=== PATIENT | male | born 1960 | race Caucasian/White ===

== ENCOUNTER 2023-05-28 19:31 | Emergency (ER) | payer BC, SELFPAY ==
[2023-05-28 19:36] VITALS: BP 148/78; PULSE 72; RESP 18; TEMP 36.6; O2SAT 98; BMI 31.0
--- NOTE | 2023-05-28 19:39 | ECG_ITS ---
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
--- NOTE | 2023-05-28 19:45 | XR_ITS ---
The [address] [address] Patient Name: JEZ MELLO MRN: [id number] date: 1960 Sex: M Assigned Patient Location: ER Current Patient Location: ER Accession/Order Number: [id number] Exam Date: 05/28/2023 19:57 Report Date: 05/28/2023 20:52 At the request of: SABINO ARAYA Procedure: XR chest 1V EXAM: XR chest 1V HISTORY: chest pain COMPARISON: 07/26/2022 TECHNIQUE: AP portable study FINDINGS: The heart is within normal limits in size. There is distortion of the mediastinum associated with the AP technique and slight right posterior oblique positioning. Mediastinal surgical clips are noted. Early calcification is noted at the aortic arch. The lung morel are well-expanded and clear. Pleural spaces are clear. Wire sternal sutures are noted. XR/XR chest 1V IMPRESSION: Chronic changes. No acute cardiopulmonary process is otherwise identified. Electronically authenticated by: Fortino RICHARDSON Date: 05/28/2023 20:52
--- NOTE | 2023-05-28 19:45 | ED_ITS ---
HPI - Chest Pain General Chief Complaint: Chest Pain Stated Complaint: CHEST PAIN Time Seen by Provider: 05/28/23 19:45 Source: patient Mode of arrival: walk-in Limitations: no limitations History of Present Illness HPI narrative: Patient process emergency department complaining of chest pain. Patient states his had intermittent chest pain for the last 2 weeks. Not related to exertion. It could happen even at rest. Pain radiates across his chest and down his left arm. He has a history of bypass and stent last year. 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 Patient also has a history of lung cancer status post right lower lobe lobectomy done 4 months ago at [facility]. Patient states he spent persistently more short of breath than normal. He denies any fever, chills, cough, runny nose, sore throat. Denies any nausea, vomiting, diarrhea, constipation, or abdominal pain. He denies any flank pain, hematuria or dysuria. He denies any trauma. Patient was taking isosorbide 30 mg and has not taking 60. Denies any palpitations, dizziness, diaphoresis. He denies any lower extremity edema, or cramping. Related Data Home Medications Medication Instructions Recorded Confirmed aspirin 81 mg capsule 81 mg PO DAILY 05/28/23 05/28/23 atorvastatin 80 mg tablet 80 mg PO DAILY 05/28/23 05/28/23 clopidogrel 75 mg tablet 75 mg PO DAILY 05/28/23 05/28/23 isosorbide mononitrate 60 mg 60 mg PO DAILY 05/28/23 05/28/23 tablet,extended release 24 hr metoprolol tartrate 25 mg tablet 25 mg PO DAILY 05/28/23 05/28/23 tamsulosin 0.4 mg capsule 0.4 mg PO Q24H 05/28/23 05/28/23 Allergies Allergy/AdvReac Type Severity Reaction Status Date / Time No Known Drug Allergies Allergy Verified 05/28/23 19:42 Review of Systems ROS Status of ROS 10 or more systems reviewed and unremarkable except as noted in history and below [facility] Social History Smoking status: Former smoker Exam Narrative Exam Narrative: Nurses notes and vital signs reviewed and patient is not hypoxic. General: Nontoxic, Well-appearing and in no apparent distress. Skin: Warm, dry, no pallor noted. No Rash Head: Normocephalic, atraumatic. Neck: Supple, non-tender. Eye: Pupils are equal, round and EOMI. No scleral icterus. Ears, Nose, Mouth, and Throat: TM clear, no posterior oropharynx erythema or nasal mucosal hypertrophy, uvula is mid-line Oral mucosa is moist Cardiovascular: Regular Rate and Rhythm without murmur, gallop or rub. Respiratory: No accessory muscle use or respiratory distress. Lungs are clear to auscultation, no wheezing, rales or rhonchi Chest Wall: no tenderness Back: No midline thoracic or lumbar vertebral tenderness. No CVA tenderness Musculoskeletal: normal ROM, no calf or popliteal tenderness, no lower extremity edema/swelling GI: Abdomen is soft, non-distended. Normal bowel sounds. No masses appreciated. No tenderness to palpation. No rebound, guarding, or rigidity noted. Neurological: A&O x4. No cranial nerve dysfunction observed. No truncal ataxia. Moves all extremities. Sensation intact. Psychiatric: Cooperative and interactive. Normal mood and affect. Constitutional Vital Signs, click to edit/add: Last Vital Signs Temp 98 F 05/28/23 19:36 Pulse 72 05/28/23 19:36 Resp 18 05/28/23 19:36 BP 148/78 H 05/28/23 19:36 Pulse Ox 98 05/28/23 19:36 O2 Del Method Room Air 05/28/23 19:36 Course Vital Signs Vital signs: Vital Signs Temperature 98 F 05/28/23 19:36 Pulse Rate 72 05/28/23 19:36 Respiratory Rate 18 05/28/23 19:36 Blood Pressure 148/78 H 05/28/23 19:36 Pulse Oximetry 98 05/28/23 19:36 Oxygen Delivery Method Room Air 05/28/23 19:36 Temperature 98 F 05/28/23 19:36 Pulse Rate 72 05/28/23 19:36 Respiratory Rate 18 05/28/23 19:36 Blood Pressure 148/78 H 05/28/23 19:36 Pulse Oximetry 98 05/28/23 19:36 Oxygen Delivery Method Room Air 05/28/23 19:36 MDM - Chest Pain MDM Narrative Medical decision making narrative: Patient has refused to have an IV inserted. Left studies were done and are unremarkable. Troponin was negative ?2. Patient's score still. All results were discussed with patient. Patient prefers to follow-up with Dr. Jackson as an outpatient. He had a heart catheter last year with a stent. He has been compliant with all of his medications. I answered all questions. Discussed discharge instructions including standard anticipatory guidance and what should prompt a return to the emergency department, including if they get worse are not getting better or develops any new or concerning symptoms. I've given them specific time frame in which to follow-up, and who to follow-up with. The patient demonstrates understanding. Patient is nontoxic and stable for discharge with outpatient follow-up. This note was created with the assistance of a speech recognition program. Although the intention is to generate documents that actually reflects the content of the visit, no guarantees can be provided that every mistake has been identified and corrected by editing. Differential Diagnosis Differential diagnosis: Likely pneumothorax, atypical chest pain, st elevation myocardial infarction and chest pain Lab Data Attestation: I reviewed the patient's lab results. Labs: Lab Results 05/28/23 05/28/23 Range/Units 19:58 21:19 WBC 5.1 (4.0-11.0) 10^3/uL RBC 4.64 L (4.70-6.10) 10^6/uL Hgb 13.6 L (14.0-18.0) g/dL Hct 40.5 L (42.0-54.0) % MCV 87.3 (80.0-94.0) fL MCH 29.3 (25.9-34.0) pg MCHC 33.6 (29.9-35.2) g/dL RDW 13.0 (11.0-15.0) % Plt Count 217 (150-450) 10^3/uL MPV 9.7 (9.5-13.5) fL Neut % (Auto) 63.8 (43.0-75.0) % Lymph % (Auto) 25.0 (20.5-60.0) % [place] % (Auto) 7.5 (1.7-12.0) % Eos % (Auto) 3.1 (0.9-7.0) % Baso % (Auto) 0.4 (0.2-2.0) % Neut # (Auto) 3.2 (1.4-6.5) 10^3/uL Lymph # (Auto) 1.3 (1.2-3.8) 10^3/uL [place] # (Auto) 0.4 (0.3-0.8) 10^3/uL Eos # (Auto) 0.2 (0.0-0.7) 10^3/uL Baso # (Auto) 0.0 (0.0-0.1) 10^3/uL Abs Immat Gran (auto) 0.01 (0.00-0.03) 10^3/uL Imm/Tot Granulo (auto) 0.2 (0.0-0.5) % PT 10.5 (9.0-11.6) sec INR 0.99 APTT 27.7 (22.3-36.2) sec D-Dimer 0.52 (<=0.59) mg/L FEU Sodium 146 H (136-145) mmol/L Potassium 4.0 (3.5-5.1) mmol/L Chloride 110 H (98-107) mmol/L Carbon Dioxide 26.9 (21.0-32.0) mmol/L Anion Gap 13.1 BUN 12.0 (7.0-18.0) mg/dL Creatinine 1.25 (0.70-1.30) mg/dL Est GFR ( Amer) >60 (>=60) Est GFR (Non-Af Amer) 59 L (>=60) BUN/Creatinine Ratio 9.6 Glucose 147 H (74-106) mg/dL Calcium 8.5 (8.5-10.1) mg/dL Total Bilirubin 0.5 (0.2-1.0) mg/dL AST 22 (15-37) U/L ALT 26 (16-63) U/L Alkaline Phosphatase 87 (46-116) U/L Troponin I High Sens 15.2 15.8 (4.0-76.1) pg/mL NT-Pro-B Natriuret Pep 84.0 (<=900.0) pg/mL Total Protein 6.9 (6.4-8.2) g/dL Albumin 3.9 (3.4-5.0) g/dL Globulin 3.0 g/dL Albumin/Globulin Ratio 1.3 ECG Data Attestation: I personally reviewed and interpreted this ECG as follows: Interpretation: Sinus rhythm 70 bpm. Normal axis, no acute ischemic changes. Heart Score History: Slightly/Non-Suspicious ECG: Normal Age: >45-<65 years Risk Factors: 1 or 2 Risk Factors Troponin: <Normal Limit Total Heart Score Recommendations & Risks:: 2 Discharge Plan Discharge Chief Complaint: Chest Pain Clinical Impression: Chest pain Patient Disposition: Home, Self-Care Time of Disposition Decision: 21:54 Condition: Good Mode of Transportation: Private Vehicle Prescriptions / Home Meds: No Action atorvastatin 80 mg tablet 80 mg PO DAILY clopidogrel 75 mg tablet 75 mg PO DAILY isosorbide mononitrate 60 mg tablet extended release 24 hr 60 mg PO DAILY tamsulosin 0.4 mg capsule 0.4 mg PO Q24H metoprolol tartrate 25 mg tablet 25 mg PO DAILY aspirin 81 mg capsule 81 mg PO DAILY Instructions: Chest Pain (ED) Stand Alone Forms: Portal Instructions Referrals: Shaikh Elliott MD [Primary Care Provider] - 1 week
[2023-05-28 20:12] LABS: Basophils Percent Auto 0.4 % (0.2-2.0); Eosinophils Absolute Auto 0.2 10^3/uL (0.0-0.7); Eosinophils Percent Auto 3.1 % (0.9-7.0); Hematocrit 40.5 % (42.0-54.0); Hemoglobin 13.6 g/dL (14.0-18.0); Immature Granulocytes Abs Auto 0.01 10^3/uL (0.00-0.03); Immature Granulocytes Pct Auto 0.2 % (0.0-0.5); Lymphocytes Absolute Auto 1.3 10^3/uL (1.2-3.8); Mean Corpuscular HGB Conc 33.6 g/dL (29.9-35.2); Mean Corpuscular Hemoglobin 29.3 pg (25.9-34.0); Mean Corpuscular Volume 87.3 fL (80.0-94.0); Mean Platelet Volume 9.7 fL (9.5-13.5); Monocytes Absolute Auto 0.4 10^3/uL (0.3-0.8); Monocytes Percent Auto 7.5 % (1.7-12.0); Neutrophils Absolute Auto 3.2 10^3/uL (1.4-6.5); Neutrophils Percent Auto 63.8 % (43.0-75.0); Platelet Count 217 10^3/uL (150-450); Red Blood Count 4.64 10^6/uL (4.70-6.10); White Blood Count 5.1 10^3/uL (4.0-11.0)
[2023-05-28 20:27] LABS: INR 0.99; Partial Thromboplastin Time 27.7 sec (22.3-36.2); Prothrombin Time 10.5 sec (9.0-11.6)
[2023-05-28 20:30] LABS: D Dimer 0.52 mg/L FEU (<=0.59)
[2023-05-28 20:37] LABS: Alanine Aminotransferase 26 U/L (16-63); Albumin Globulin Ratio 1.3; Albumin Level 3.9 g/dL (3.4-5.0); Alkaline Phosphatase 87 U/L (46-116); Anion Gap 13.1; Aspartate Amino Transferase 22 U/L (15-37); BUN Creatinine Ratio 9.6; Bilirubin Total 0.5 mg/dL (0.2-1.0); Calcium 8.5 mg/dL (8.5-10.1); Carbon Dioxide 26.9 mmol/L (21.0-32.0); Chloride 110 mmol/L (98-107); Estimated GFR (African America >60 (>=60); Estimated GFR (Non-African Ame 59 (>=60); Glucose 147 mg/dL (74-106); Sodium 146 mmol/L (136-145); Total Protein 6.9 g/dL (6.4-8.2); Troponin I High Sensitivity 15.2 pg/mL (4.0-76.1)
[2023-05-28 21:48] LABS: Troponin I High Sensitivity 15.8 pg/mL (4.0-76.1)
== END 2023-05-28 22:12 | disposition home or self-care (01) ==
PROVIDERS: Emergency Provider Emergency Medicine; PCP Internal Medicine
DX: R07.9 Chest pain, unspecified (principal); Z95.5 Presence of coronary angioplasty implant and graft; Z85.118 Personal history of other malignant neoplasm of bronchus and lung; Z90.2 Acquired absence of lung [part of]; Z79.82 Long term (current) use of aspirin; Z79.899 Other long term (current) drug therapy; Z87.891 Personal history of nicotine dependence
CPT/HCPCS: 36415; 71045; 80053; 83880; 84484; 85025; 85378; 85610; 85730; 93005; 99285

== ENCOUNTER 2023-09-13 10:00 | Outpatient (OUT) | payer BC, SELFPAY ==
--- NOTE | 2023-09-13 10:12 | P.CN_ITS ---
Consult Note: HPI Data of Consult Patient: new to practice Requesting Physician: Lexis Eckert NP Primary Care Provider: Shaikh Lexi MD Consult Narrative Reason for consult: establish care low back pain Narrative: Zaid Mcarthur a pleasant 62 year old male presents for evaluation and management of chronic low back pain. Pain has been ongoing for years, most recent cause related to a fall where he fell 18ft off a ladder and went to the ER where they found lung cancer and he is now in remission with q4 month surveillance. Pain worsened as a result of PT. Patient rating pain today 5/10 in low back. Pain is worse with pushing, pulling, ADLS, upon wakening, stairs, and bending. No pain relief. Patient has a cardiac hx and is on plavix, will avoid NSAIDs. Patient would like to discuss treatment options today, has a recent lumbar MRI which shows mild stenosis, multilevel disc bulging, and lumbar spondylosis. cc:: CC: Lexis Eckert NP Review of Systems ROS Status of ROS 10 or more systems reviewed and unremarkable except as noted in history and below Musculoskeletal Reports: back pain PFSH PFSH Social History Smoking status: Former smoker Meds Home Medications and Allergies Home Medications Medication Instructions Recorded Confirmed Type aspirin 81 mg capsule 81 mg PO DAILY 05/28/23 05/28/23 History atorvastatin 80 mg tablet 80 mg PO DAILY 05/28/23 05/28/23 History clopidogrel 75 mg tablet 75 mg PO DAILY 05/28/23 05/28/23 History isosorbide mononitrate 60 mg 60 mg PO DAILY 05/28/23 05/28/23 History tablet,extended release 24 hr metoprolol tartrate 25 mg tablet 25 mg PO DAILY 05/28/23 05/28/23 History tamsulosin 0.4 mg capsule 0.4 mg PO Q24H 05/28/23 05/28/23 History Allergies Allergy/AdvReac Type Severity Reaction Status Date / Time No Known Drug Allergies Allergy Verified 05/28/23 19:42 Exam Constitutional Documenting provider has reviewed patient's vital signs: yes Common normals: no apparent distress, oriented x3, healthy appearing, alert and well nourished General appearance: cooperative Nutritional appearance: obese HENMT Common normals: normocephalic, hearing grossly normal bilaterally and moist oral mucous membranes Head and scalp: normocephalic Eye Common normals: PERRL Pupil: PERRL Neck & C-Spine Common normals: full ROM General: normal visual inspection Chest Common normals: inspection of chest normal Respiratory Common normals: normal respiratory effort, no retractions and no use of accessory muscles Back & Pelvis Lumbar spine/lower back: ROM limited, pain with ROM and straight leg raise negative bilaterally Other: bilateral facet loading axial low back pain without radiculopathy Back image (male): 1. 2. Extremity Common normals: normal to inspection and full ROM Neuro Common normals: oriented x3, CN's II-XII intact bilaterally, moves all extremities, no focal motor deficits, no sensory deficits noted and deep tendon reflexes 2+ bilaterally Sensorium/orientation: alert Motor exam: no movement abnormalities noted and strength abnormal (BLE 4/5) Psych Common normals: mental status grossly normal, thought process normal, cooperative, affect normal, speech normal and activity/motor behavior normal Speech: normal speech Thought process: normal thought process Assessment and Plan Assessment and Plan (1) Lumbar spondylosis: Assessment and Plan: The patient has had over 3 months of moderate to severe low back pain with fun ctional impairment and inadequate response to conservative care including NSAIDS (unless there are contraindication such as concurrent blood thinners), multiple oral or topical pain medications, and home exercise program/physical therapy.? Patient has completed >6 weeks of guided home exercise program and/or formal physical therapy program without relief of their symptoms.? I have reviewed the imaging of the lumbar spine and no red flags were identified.? The Oswestry Disability Index was completed, and the patient scored a 20%.? The patient noted the following:?? moderate to severe pain, pain impacting sleep, pain limiting social life and travel We discussed the risks and benefits of the procedure with the patient, and we are NOT planning on using sedation as outlined in the guidelines from Medicare unless there is a documented reason that sedation would be strongly recommended.?? The procedure will be completed with fluoroscopic guidance.? (2) Obesity: Assessment and Plan: The patient was counseled that proper dietary changes and consistent participation in a home exercise plan can lead to weight loss. Weight loss can help to improve functionality in patients with chronic pain.? (3) Chronic anticoagulation: (4) S/P triple vessel bypass: (5) Hx of heart artery stent: Plan bilateral L4-5 L5-S1 MBB x2 under fluoroscopy working towards thermal RFA continue PRN tylenol, avoid NSAIDs continue HEP as tolerated [employer] reviewed and signed F/u 1 week after MBB
== END 2023-09-13 10:01 ==
LOC: PM 09-19 12:37
PROVIDERS: PCP Internal Medicine; Visit Provider Nurse Practitioner
DX: M47.816 Spondylosis without myelopathy or radiculopathy, lumbar region (principal); E66.9 Obesity, unspecified; Z79.01 Long term (current) use of anticoagulants; R09.89 Other specified symptoms and signs involving the circulatory and respiratory systems
CPT/HCPCS: G0463

== ENCOUNTER 2023-10-01 09:50 | Day surgery (SDC) | payer BC, SELFPAY ==
[2023-10-01 10:55] VITALS: BP 134/79; PULSE 79; RESP 16; TEMP 36.9; O2SAT 97
[2023-10-01] MEDS: BUPIVACAINE HCL 0.25% PF 25 MG/10 ML VIAL 8 ML INJ (11:31)
[2023-10-01] MEDS: LIDOCAINE HCL 2% PF 100 MG/5 ML VIAL 2 ML INJ (11:31)
[2023-10-01 11:33] VITALS: BP 130/71; PULSE 65; RESP 18; O2SAT 97
--- NOTE | 2023-10-01 11:34 | W.PM.PROCNOT ---
Date of procedure: 10/01/23 Pre-op diagnosis: Lumbar spondylosis Post-op diagnosis: same as pre-op Procedure: Procedure: Bilateral L4-5, L5-S1 medial branch block Medications: Bupivacaine 0.25% 5cc The patient was seen and examined in the preoperative holding area.? An informed consent was obtained and placed on the chart.? The patient was brought to the medical procedure unit and placed in the prone position.? A timeout was completed verifying correct patient, procedure site, positioning, plan, and special equipment.? Using aseptic technique, the needle was placed at left L4. Under direct fluoroscopic visualization a Quincke-tipped spinal needle was advanced to the junction of the superior articulating process with the transverse process at the designated medial branch segment.? Preceded by negative aspiration, the above-mentioned injectate was placed in 1 mL aliquots.? The procedure was repeated at left L5, S1.? The needle was removed and insertion site was covered. The same procedure, at the same levels, was completed on the right side. The patient was taken to the postprocedural recovery area and monitored for an appropriate length of time before found suitable for discharge in the company of a responsible adult. Anesthesia: Local Surgeon: Mariah Whiting Pathology: none sent Condition: stable Disposition: no change
[2023-10-01 11:36] VITALS: BP 127/71; PULSE 68; RESP 18; O2SAT 97
== END 2023-10-01 11:40 | disposition home or self-care (01) ==
PROVIDERS: PCP Internal Medicine; Visit Provider Anesthesiology
DX: M47.816 Spondylosis without myelopathy or radiculopathy, lumbar region (principal)
CPT/HCPCS: 64493; 64494

== ENCOUNTER 2023-10-10 11:37 | Outpatient (OUT) | payer BC, SELFPAY ==
--- NOTE | 2023-10-10 12:12 | P.CN_ITS ---
Consult Note: HPI Data of Consult Patient: known to practice within the last 3 years Requesting Physician: Lexis Eckert NP Primary Care Provider: Shaikh Lexi MD Consult Narrative Reason for consult: establish care low back pain Narrative: Zaid Mcarthur a pleasant 62 year old male presents for evaluation and management of chronic low back pain. Pain has been ongoing for years, most recent cause related to a fall where he fell 18ft off a ladder and went to the ER where they found lung cancer and he is now in remission with q4 month surveillance. Pain worsened as a result of PT. Patient rating pain today 5/10 in low back. Pain is worse with pushing, pulling, ADLS, upon wakening, stairs, and bending. No pain relief. Patient has a cardiac hx and is on plavix, will avoid NSAIDs. Patient has a recent lumbar MRI which shows mild stenosis, multilevel disc bulging, and lumbar spondylosis. cc:: CC: Lexis Eckert NP Review of Systems ROS Status of ROS 10 or more systems reviewed and unremark able except as noted in history and below Musculoskeletal Reports: back pain PFSH PFSH Social History Smoking status: Former smoker Meds Home Medications and Allergies Home Medications Medication Instructions Recorded Confirmed Type aspirin 81 mg capsule 81 mg PO DAILY 05/28/23 10/01/23 History atorvastatin 80 mg tablet 80 mg PO DAILY 05/28/23 10/01/23 History clopidogrel 75 mg tablet 75 mg PO DAILY 05/28/23 10/01/23 History isosorbide mononitrate 60 mg 60 mg PO DAILY 05/28/23 10/01/23 History tablet,extended release 24 hr metoprolol tartrate 25 mg tablet 25 mg PO BID 05/28/23 10/01/23 History tamsulosin 0.4 mg capsule 0.4 mg PO BID 05/28/23 10/01/23 History multivitamin 1 tab PO DAILY 09/13/23 10/01/23 History Allergies Allergy/AdvReac Type Severity Reaction Status Date / Time No Known Drug Allergies Allergy Verified 05/28/23 19:42 Exam Constitutional Documenting provider has reviewed patient's vital signs: yes Common normals: no apparent distress, oriented x3, healthy appearing, alert and well nourished General appearance: cooperative Nutritional appearance: obese HENMT Common normals: normocephalic, hearing grossly normal bilaterally and moist oral mucous membranes Head and scalp: normocephalic Eye Common normals: PERRL Pupil: PERRL Neck & C-Spine Common normals: full ROM General: normal visual inspection Chest Common normals: inspection of chest normal Respiratory Common normals: normal respiratory effort, no retractions and no use of accessory muscles Back & Pelvis Lumbar spine/lower back: ROM limited, pain with ROM and straight leg raise positive right Other: decreased strength in RLE Extremity Common normals: normal to inspection and full ROM Neuro Common normals: oriented x3, CN's II-XII intact bilaterally, moves all extremities, no focal motor deficits, no sensory deficits noted and deep tendon reflexes 2+ bilaterally Sensorium/orientation: alert Motor exam: no movement abnormalities noted and strength abnormal (RLE 4/5) Psych Common normals: mental status grossly normal, thought process normal, cooperative, affect normal, speech normal and activity/motor behavior normal Speech: normal speech Thought process: normal thought process Assessment and Plan Assessment and Plan (1) Lumbar spondylosis: (2) Lumbar stenosis with neurogenic claudication: (3) Lumbar radiculopathy: (4) Neuropathy of left upper extremity: Plan right L4-5 L5-S1 TFESI with Dr Whiting under fluoroscopy EMG NCV of right upper extremity continue HEP continue tylenol PRN f/u 2 weeks after RAFY
== END 2023-10-10 11:38 | disposition home or self-care (01) ==
LOC: PM 11:37
PROVIDERS: PCP Internal Medicine; Visit Provider Nurse Practitioner
DX: M47.816 Spondylosis without myelopathy or radiculopathy, lumbar region (principal); M48.062 Spinal stenosis, lumbar region with neurogenic claudication; M54.16 Radiculopathy, lumbar region; G62.9 Polyneuropathy, unspecified
CPT/HCPCS: G0463

== ENCOUNTER 2023-11-19 07:32 | Day surgery (SDC) | payer BC, SELFPAY ==
--- OUTSIDE RECORDS SUMMARY | 2023-11-19 07:35 | XMS_ITS | CCD ---
Author Name Unknown Address [address] [facility] [address] [place] [address] Organization [facility] Care Team Providers Care Wallpaper Scraper Name Role Phone Unknown, Referring Provider Unavailable Unav ailable Unavailable Unavailable MD Consuelo Villasenor Primary Care Provider [phone] MD Mickie Das Attending Provider MD Demetrio Floyd Attending Provider [phone] DO Grupo Daniel Jr Attending Provider DO Grupo Bowden Jr Referring Provider Lesa carter None, No PCP Unavailable Unavailable Consuelo Villasenor Unavailable Mickie Das Unavailable Unavailable Unavailable MD Consuelo Villasenor Primary Care Provider MD Mickie Das Attending Provider [phone] DO Jermaine Jackson Attending Provider [phone] Unavailable Unavailable Unavailable Unavailable MD Consuelo Villasenor Primary Care Provider MD Jaswinder Flores Admit Provider MD Jaswinder Flores Attending Provider NANDO Maldonado Aziza Other Provider Unavailable DO Jermaine Jackson Other Provider MD Frances Gayle Other Provider MD Walt Becker Other Provider [phone] MD Judy Kaba Other Provider MD Ottoniel Valdovinos Other Provider BOBY Oneill Other Provider MD Sahra Diez Other Provider MD Blayne Aguilera Other Provider MD Percy Wei Other Provider DR ADRIANA NAGY Attending Unavailable LILO, DR WRIGHT Admitting Unavailable MISC, DR GUERRA Primary Care Unavailable ZIEBGEOVANNA, DR SAUNDRA Naylor Consulting Unavailable LILO, DR WRIGHT Consulting Unavailable SABINO COLES Admitting Unavailable MISC, DR GUERRA Primary Care Unavailable ZIEBGEOVANNA, DR SAUNDRA Naylor Consulting Unavailable MARSHAL, SABINO Attending Unavailable ROSINA COLESID Consulting Unavailable Shaikh Elliott Unavailable Manuel, Dr. Walt Hayden Referring Unava ilable Manuel, Dr. Walt Hayden Attending Unava ilable Manuel, Dr. Walt Hayden Attending Unava ilable Jacklyn, [facility] Unavai lable Manuel, Dr. Walt Hayden Referring Unava ilable Jacklyn, [facility] Unavai lable Manuel, Dr. Walt Hayden Attending Unava ilable Jacklyn, [facility] Unavai lable Jacklyn, [facility] Unavai lable Manuel, Dr. Walt Hayden Attending Unava ilable Manuel, Dr. Walt Hayden Attending Unava ilable Manuel, Dr. Walt Hayden Referring Unava ilable UNKNOWN, [facility] Primary Care Unavailable Manuel, Dr. Walt Hayden Referring Unava ilable Manuel, Dr. Walt Hayden Attending Unava ilable Unavailable Unavailable MD Jens Elliott Primary Care Provider MD Jens Elliott Attending Provider Shaikh Elliott Attending Unavailable Shaikh Elliott Primary Care Unavailable Shaikh Elliott Admitting Unavailable Johanne RODRIGUEZ, Mariah Saldivar Attending Unavailable Yonatan Elliott MDikh Primary [facility] Provider [phone] YONATAN ELLIOTTIKH Referring Unavailable YONATAN ELLIOTTIKH Primary Care Unavailable ISAÍAS VANCE Attending Unavailable ISAÍAS VANCE Referring Unavailable YONATAN ELLIOTTIKH Primary Care Unavailable ISAÍAS VANCE Referring Unavailable YONATAN ELLIOTTIKH Primary Care Unavailable ISAÍAS VANCE Attending Unavailable ISAÍAS VANCE Referring Unavailable [facility] Primary Care Unavailable REJI ROMERO Admitting Unavailable REJI ROMERO Attending Unavailable REJI ROMERO Referring Unavailable YONATAN ELLIOTTIKH Primary Care Unavailable GISSELLE CARVER Attending Unavailable [facility] Primary [facility] Unavailable Medications Current Medications Medication Drug Class(es) Dates Sig (Normalized) Sig (Original) aspirin 81 mg delayed release oral tablet (20 sources) Platelet Aggregation Inhibitor, Nonsteroidal Anti-inflammatory Drug Start: 04-27-2021 take 81 mg by mouth once daily Aspirin Active 81 MG PO Daily April 27, 2021 12:00am take 1 tablet by mouth once lola y Aspir-Low 81 MG 1 tablet Orally Once a day Active finasteride 5 mg oral tablet (1 source) 5-alpha Reductase Inhibitor take 1 tablet by mouth every twenty-four hours Finasteride 5 MG 1 tablet Orally Once a day Active metoprolol tartrate 25 mg oral tablet (20 sources) beta-Adrenergic Rudolph Start: 021 take 1 tablet by mouth twice daily metoprolol tartrate (LOPRESSOR) 25 mg tablet TAKE 1 TABLET BY MOUTH TWICE A DAY 180 tablet 3 02/12/2023 Active nitroglycerin 0.4 mg sublingual tablet (18 sources) Nitrate Vasodilator Start: Nitroglycerin (Nitrostat) 0.4 mg tablet, sublingual Active 0.4 MG SUBLINGUAL Q5M April 29, 2021 12:00am do not exceed 3 doses per episode tamsulosin hydrochloride 0.4 mg oral capsule (20 sources) alpha-Adrenergic Rudolph Start: End: 024 take 1 capsule by mouth at bedtime tamsulosin (FLOMAX) 0.4 mg capsule Take 1 capsule (0.4 mg total) by mouth in the morning and at bedtime for 180 days. 60 capsule 5 09/05/2023 03/03/2024 Active ticagrelor 90 mg oral tablet (18 sources) Start: take 1 tablet by mouth twice daily Ticagrelor (Brilinta) 90 mg Tablet Active 90 MG PO Twice daily 180 90 April 29, 2021 12:00am Completed/Discontinued Medications Medication Drug Class(es) Dates Sig (Normalized) Sig (Original) amoxicillin 500 mg oral capsule (4 sources) Penicillin-class Antibacterial Start: 05-11-2022 End: 05-12-2022 take 500 mg by mouth every eight hours Amoxicillin Discontinued 500 MG PO Q8H May 11, 2022 12:00am May 12, 2022 8:13am atorvastatin 80 mg oral tablet (20 sources) HMG-CoA Reductase Inhibitor Start: 04-29-2021 take 1 tablet by mouth at bedtime Atorvastatin Calcium 80 MG Oral Tablet TAKE 1 TABLET AT BEDTIME Quantity: 90 Refills: 3 Ordered: 04-May-2023 Walt Jackson DO Start : 02-May-2023 Active Start: 10-25-2020 End: 04-29-2021 take 1 tablet by mouth once daily atorvastatin (LIPITOR) 40 mg tablet Take 1 tablet (40 mg total) by mouth daily. 30 tablet 6 10/25/2020 Active clopidogrel 75 mg oral tablet (13 sources) P2Y12 Platelet Inhibitor Start: 10-04-2022 take 1 tablet by mouth once daily Clopidogrel Bisulfate 75 MG Oral Tablet TAKE 1 TABLET BY MOUTH EVERY DAY Quantity: 90 Refills: 3 Ordered: 07-Jun-2023 Caterina Veliz Start : 04-Oct-2022 Active 24 hr isosorbide mononitrate 60 mg extended release oral tablet (16 sources) Nitrate Vasodilator Start: 07-28-2022 take 1 tablet by mouth once daily Isosorbide Mononitrate ER 60 MG Oral Tablet Extended Release 24 Hour TAKE 1 TABLET BY MOUTH EVERY DAY Quantity: 90 Refills: 3 Ordered: 04-Jul-2023 Walt Jackson DO Start : 20-Nov-2022 Active Start: 05-12-2022 End: 07-28-2022 take 30 mg by mouth once daily Isosorbide Mononitrate Discontinued 30 MG PO Daily May 12, 2022 12:00am July 28, 2022 5:24pm levoFLOXacin 500 mg oral tablet (2 sources) Quinolone Antimicrobial Start: 10-30-2023 End: 11-05-2023 take 1 tablet by mouth in the morning levoFLOXacin (LEVAQUIN) 500 mg tablet Take 1 tablet (500 mg total) by mouth in the morning for 5 days. 5 tablet 0 10/30/2023 11/05/2023 Discontinued (Therapy completed) ondansetron 4 mg disintegrating oral tablet (1 source) Serotonin-3 Receptor Antagonist Start: 11-10-2022 End: 10-24-2023 ondansetron ODT (ZOFRAN ODT) 4 mg disintegrating tablet DISSOLVE 1 TABLET ON TONGUE EVERY 6 HOURS NEEDED FOR FOR NAUSEA AND VOMITING 0 11/10/2022 10/24/2023 Discontinued pantoprazole 40 mg delayed release oral tablet (1 source) Proton Pump Inhibitor Start: 12-06-2022 End: 10-24-2023 take 1 tablet by mouth in the morning pantoprazole (PROTONIX) 40 mg EC tablet Take 1 tablet (40 mg total) by mouth in the morning. 30 tablet 0 12/06/2022 10/24/2023 Discontinued Problems Active Problems Problem Classification Problem Date Documented Date Episodic/Chronic Abdominal pain (4 sources) Unspecified abdominal pain; Translations: [UNSPECIFIED ABDOMINAL PAIN] Onset: 05-30-2022 Episodic Acute myocardial infarction (20 sources) Myocardial infarction; Translations: [Acute myocardial infarction of unspecified site, episode of care unspecified] Onset: 12-20-2021 04-27-2021 Chronic Bacterial infection; unspecified site (1 source) Mycobacterial infection, unspecified Episodic Calculus of urinary tract (8 sources) Calculus in bladder; Translations: [Kidney stone] Onset: 05-31-2022 09-06-2023 Episodic Cancer of bronchus; lung (5 sources) Non-small cell lung cancer; Translations: [Malignant neoplasm of unspecified part of unspecified bronchus or lung] Onset: 11-10-2021 Chronic Chronic obstructive pulmonary disease and bronchiectasis (20 sources) Chronic obstructive lung disease; Translations: [Chronic obstructive pulmonary disease, unspecified] Onset: 04-09-2017 Resolved: 03-08-2022 Chronic Coronary atherosclerosis and other heart disease (20 sources) Coronary arteriosclerosis; Translations: [Coronary atherosclerosis of unspecified type of vessel, little shell tribe or graft] Onset: 03-05-2017 Resolved: 11-15-2021 Chronic Coronary atherosclerosis and other heart disease (2 sources) Presence of aortocoronary bypass graft; Translations: [Personal history of surgery to heart and great vessels, presenting hazards to health] Onset: 07-28-2022 07-28-2022 Episodic Disorders of lipid metabolism (20 sources) Hyperlipidemia; Translations: [Other and unspecified hyperlipidemia] Onset: 07-18-2017 07-18-2017 Chronic Essential hypertension (2 sources) Hypertensive disorder; Translations: [Essential (primary) hypertension] Onset: 10-24-2023 10-18-2023 Chronic Hyperplasia of prostate (4 sources) Benign prostatic hyperplasia; Translations: [Benign prostatic hyperplasia with lower urinary tract symptoms] Onset: 12-21-2020 09-13-2023 Chronic Nonspecific chest pain (11 sources) Chest pain; Translations: [Chest pain, unspecified] Onset: 07-26-2022 07-26-2022 Episodic Other aftercare (1 source) route carrier (current) use of aspirin; Translations: [BID CLERK CURRENT USE OF ASPIRIN] Onset: 07-28-2022 Episodic Other aftercare (1 source) Other custodial (current) drug therapy; Translations: [OTH BID CLERK CURRENT DRUG THERAPY] Onset: 07-28-2022 Episodic Other lower respiratory disease (6 sources) Solitary nodule of lung; Translations: [Solitary pulmonary nodule] Episodic Other lower respiratory disease (1 source) Shortness of breath; Translations: [SHORTNESS OF BREATH] Onset: 07-28-2022 Episodic Other nutritional; endocrine; and metabolic disorders (4 sources) Body mass index 30+ - obesity; Translations: [Body Mass Index 30.0-30.9, adult] Onset: 12-20-2021 12-20-2021 Chronic Other nutritional; endocrine; and metabolic disorders (16 sources) Obesity; Translations: [Obesity, unspecified] Chronic Other screening for suspected conditions (not mental disorders or infectious disease) (3 sources) Raised prostate specific antigen; Translations: [Elevated prostate specific antigen [PSA]] Onset: 09-05-2023 09-06-2023 Episodic Unclassified (1 source) CONTACT W/AND (SUSP) EXPOS COVID-19; Translations: [CONTACT W/AND (SUSP) EXPOS COVID-19] Onset: 07-28-2022 Unclassified (1 source) Lumbago with sciatica, right side; Translations: [Lumbago with sciatica, right side] Onset: 08-02-2023 Unclassified (1 source) Bladder stones [N21.0] Onset: 11-05-2023 Past or Other Problems Problem Classification Problem Date Documented Date Episodic/Chronic Mood disorders (3 sources) Mood disorders Onset: 07-18-2017 07-18-2017 Mycoses (1 source) Unspecified mycosis Onset: 03-08-2022 Resolved: 03-08-2022 Episodic Other lower respiratory disease (20 sources) Lung mass; Translations: [Swelling, mass, or lump in chest] Onset: 04-09-2017 10-25-2021 Episodic Other lower respiratory disease (9 sources) Dyspnea on exertion; Translations: [Dyspnea, unspecified] Onset: 05-09-2017 05-09-2017 Episodic Other lower respiratory disease (7 sources) Other nonspecific abnormal finding of lung field; Translations: [Swelling, mass, or lump in chest] Onset: 11-15-2021 Resolved: 03-08-2022 Episodic Other lower respiratory disease (1 source) Dyspnea, unspecified Onset: 11-15-2021 Resolved: 11-15-2021 Episodic Other lower respiratory disease (3 sources) Cough; Translations: [Cough] Onset: 09-24-2017 09-24-2017 Episodic Other upper respiratory infections (3 sources) Acute frontal sinusitis; Translations: [Acute frontal sinusitis, unspecified] Onset: 09-24-2017 09-24-2017 Episodic Pneumonia (except that caused by tuberculosis or sexually transmitted disease) (1 source) Pulmonary mycobacterial infection Onset: 03-08-2022 Resolved: 03-08-2022 Episodic Residual codes; unclassified (3 sources) H/O: asbestos exposure; Translations: [Contact with and (suspected) exposure to asbestos] Onset: 04-09-2017 04-09-2017 Episodic Screening and history of mental health and substance abuse codes (20 sources) Ex-smoker; Translations: [Personal history of tobacco use] Onset: 03-05-2017 Resolved: 12-22-2019 07-17-2022 Episodic Comment on above: QUIT 15 YEARS AGO 20 06- SMOKED ABOUT 2 PPD; Results Test Name Value Interpretation Reference Range Facility KIDNEY STONE ANALYSISon RESULT COMMENT See Note Normal [facility] Comment on above: Result Comment: NOTE For stones containing calcium oxalate, calcium phosphate, and/or uric acid, a 24 hr urinary supersaturation test may help detect underlying risk factors for this type of stone formation and provide guidance for a stone prevention strategy. ADDITIONAL INFORMATION This test was developed and its performance characteristics determined by [facility] in a manner consistent with CLIA requirements. This test has not been cleared or approved by the U.S. Food and Drug Administration. Test Performed by: [facility] [address] [place] [address] [place]: Walt Shafer M.D. Ph.D.; CLIA# [id number] SOURCE: Bladder Normal [facility] Comment on above: Result Comment: Indy ected on 11/08 AT 1412: Previously reported as BLADDER Stone Interpretation See Note Normal [facility] Comment on above: Result Comment: NOTE 50% Calcium oxalate monohydrate. 30% Calcium phosphate (apatite). 20% Calcium oxalate dihydrate. BASIC METABOLIC PANLon 10-24 Anion gap [Moles/Vol] 6 mmol/L Normal 5-15 [facility] Comment on above: Performed By: #### Whitney FABIAN, 718-7 #### [facility] ([id number]) [address], [facility] [address] [place] [address] Calcium [Mass/Vol] 9.0 mg/dL Normal 8.5-10.5 [facility] Comment on above: Performed By: #### Whitney FABIAN, 718-7 #### [facility] ([id number]) [address] [address] [place] [address] Chloride [Moles/Vol] 103 mmol/L Normal 98-109 [facility] Comment on above: Performed By: #### Whitney FABIAN, 718-7 #### [facility] ([id number]) [address], [address] [place] [address] CO2 [Moles/Vol] 29 mmol/L Normal 22-32 [facility] Comment on above: Performed By: #### Whitney FABIAN 718-7 #### [facility] ([id number]) [address] [place] [address] Creatinine [Mass/Vol] 0.91 mg/dL Normal 0.60-1.30 [facility] Comment on above: Result Comment: METH OD TRACEABLE TO IDMS STANDARD Performed By: #### Whitney FABIAN 718-7 #### [facility] ([id number]) [address] [facility] [address] [place] [address] eGFR (CKD-EPI) NON-RACE DEPENDENT >90 Normal >59 [facility] Comment on above: Result Comment: Reported eGFR is based on the CKD-EPI 2020 equation that does not use a race coefficient. Performed By: #### Whitney FABIAN 718-7 #### [facility] ([id number]) [address] [place] [address] Glucose [Mass/Vol] 169 mg/dL High 65-99 [facility] Comment on above: Performed By: #### Whitney FABIAN 718-7 #### [facility] ([id number]) [address] [address] [place] [address] Potassium [Moles/Vol] 4.3 mmol/L Normal 3.5-5.0 [facility] Comment on above: Performed By: #### Whitney FABIAN 718-7 #### [facility] ([id number]) [address] [place] [address] Sodium [Moles/Vol] 138 mmol/L Normal 134-146 [facility] Comment on above: Performed By: #### Whitney FABIAN 718-7 #### [facility] ([id number]) [address] [place] [address] Urea nitrogen [Mass/Vol] 14 mg/dL Normal -27 [facility] Comment on above: Performed By: #### Whitney FABIAN, 718-7 #### [facility] ([id number]) [address] [place] [address] Basic Metabolic Panelon 09-29 Anion gap [Moles/Vol] 6 mmol/L 5 - 15 mmol/L [facility] Calcium [Mass/Vol] 9.0 mg/dL 8.5 - 10. 5 mg/dL [facility] Chloride [Moles/Vol] 103 mmol/L 98 - 10 9 mmol/L [facility] CO2 [Moles/Vol] 29 mmol/L 22 - 32 mmol/L [facility] Creatinine [Mass/Vol] 0.91 mg/dL 0.60 - 1.30 mg/dL [facility] Comment on above: METHOD TRACEABLE TO [facility] STANDARD eGFR (CKD-EPI)non-race dependent - PINF [facility] Comment on above: Reported eGFR is based on the CKD-EPI 2020 equation that does not use a race coefficient. Glucose [Mass/Vol] 169 mg/dL High 65 - 99 mg/dL [facility] Interpretation and review of laboratory results Abnormal [facility] Potassium [Moles/Vol] 4.3 mmol/L 3.5 - 5.0 mmol/L [facility] Sodium [Moles/Vol] 138 mmol/L 134 - 146 mmol/L [facility] Urea nitrogen [Mass/Vol] 14 mg/dL 5 - 27 mg/dL [facility] ECG 12 leadon 10-24-2023 TRACEMASTERVUE [facility] HEMOGLOBINon 10-24-2023 Hemoglobin (Bld) [Mass/Vol] 14.1 g/dL Normal 13.0-17.0 [facility] Comment on above: Performed By: #### Whitney FABIAN, 718-7 #### [facility] ([id number]) [address] [place] [address] Hemoglobinon 10-24-2023 Hemoglobin (Bld) [Mass/Vol] 14.1 g/dL 13.0 - 17.0 g/dL [facility] Hemoglobin (Bld) [Mass/Vol]o n 10-24-2023 [facility] URINALYSISon 10-24-2023 Bilirubin Ql (U) Negative Normal NEG [facility] BLOOD/HGB Trace Abnormal NEG [facility] CA OXALATE CRYSTALS PRESENT Abnormal NONE [facility] Color (U) YELLOW Normal YELLOW [facility] Glucose Ql (U) Negative Normal NEG [facility] Ketones Ql (U) Negative Normal NEG [facility] Leukocyte esterase Test strip Ql (U) Negative Normal NEG [facility] Nitrite Ql (U) Negative Normal NEG [facility] pH (U) 6.0 [pH] Normal 5.0-8.5 [facility] Protein Ql (U) Negative Normal NEG [facility] R.B.CELLS 21 /hpf High 0-5 [facility] Specific gravity (U) [Rel density] 1.021 Normal 1.003-1.03 5 [facility] TURBIDITY CLEAR Normal CLEAR [facility] Urobilinogen (U) [Mass/Vol] mg/dL Normal <1.1 [facility] W.B.CELLS 3 /hpf Normal 0-5 [facility] URINE CULTUREon 10-24-2023 Bacteria identified Cx Nom (U) CULTURE RESULTS <10,000 ORGANISMS/mL ESCHERICHIA COLI ID AND SENSITIVITY REQUESTED BY DR ROMERO 10/26 Organism: ESCHERICHIA COLI Antibiotic Interpretation SHERYL Status AMPICILLIN R >=32 F AMP/SULBACTAM R >=32/16 F CEFAZOLIN I 16 F CEFTRIAXONE S <=1 F CIPROFLOXACIN S <=0.25 F GENTAMICIN S <=1 F LEVOFLOXACIN S <=0.12 F NITROFURANTOIN S <=16 F PIPERACIL/TAZOBACTAM S <=4 F TOBRAMYCIN S <=1 F TRIMETH/SULFAMETHOXAZOLE S <=1/19 F Susceptible [facility] Comment on above: Performed By: #### 6 30-4 #### [facility] ([id number]) [address] [place] [address] XR CHEST 2 VWSon 10-24-2023 XR CHEST 2 VWS XR CHEST 2 VWS PA and lateral chest: HISTORY: Preoperative exam. Anesthesia clearance. 2 views the chest are obtained. There is a small right pleural effusion. Lungs otherwise clear. No consolidation. The cardiac contour is stable in comparison with 01/10/2023. No pneumothorax. IMPRESSION: Small right pleural effusion. Finalized by Chacorta Singleton MD on 10/24/2023 11:15 AM [facility] XR Chest PA and Lateralon PA and lateral chest : HISTORY: Preoperative exam. Anesthesia clearance. 2 views the chest are obtained. There is a small right pleural effusion. Lungs otherwise clear. No consolidation. The cardiac contour is stable in comparison with 01/10/2023. No pneumothorax. IMPRESSION: Small right pleural effusion. Finalized by Chacorta Singleton MD on 10/24/2023 11:15 AM [facility] Chacorta Singleton M D - 10/24/2023 PA and lateral chest: HISTORY: Preoperative exam. Anesthesia clearance. 2 views the chest are obtained. There is a small right pleural effusion. Lungs otherwise clear. No consolidation. The cardiac contour is stable in comparison with 01/10/2023. No pneumothorax. IMPRESSION: Small right pleural effusion. Finalized by Chacorta Singleton MD on 10/24/2023 11:15 AM [facility] Radiology Study observation (narrative) [facility] XR Chest PA and LateralOrder ed By: Chacorta Singleton on 10-24-2023 [facility] Work Phone: XR pre/post mri xrayon 08-02 XR pre/post mri xray [facility] Main [address] [address] MRI Report Signed Patient: Zaid Mello MR#: [id number] : 1960 Acct:[id number] Age/Sex: 62 / M ADM Date: 08/02/23 Loc: MR Room: Type: REG CLI Attending Dr: Shaikh Lexi RODRIGUEZ Copies to: Shaikh Lexi MD Ordering Provider: Shaikh Lexi MD Date of Service: 08/02/23 MR/MR lumbar spine wo con: M54.41 ([id number]) XR/XR pre/post mri xray: M54.41 MRI Lumbar Spine withoutcontrast TECHNIQUE: Multiplanar T1 and T2-weighted imaging of lumbar spine obtained without contrast. HISTORY: Low back pain for one year. COMPARISON: None The last fully segmented vertebral pair is operationally defined as L5/S1. POST SURGERY CHANGES: None BONE MARROW INFILTRATION: Unremarkable BONE MARROW EDEMA: Mild subendplate bone marrow edematous changes. Associated focal depressions likely representing Schmorl's nodes. BONY ALIGNMENT: Adequate bony alignment identified. SPINAL CANAL: Mild LUMBAR FRACTURE: None BONY LESIONS: None KIDNEYS: No hydronephrosis is identified. AORTA: No aortic aneurysm is seen. CONUS MEDULLARIS : The distal spinal cord is in adequate position without abnormality. Additional findings CONJOINED NERVE ROOT: None Lower thoracic level: Unremarkable L1-2 :Moderate spondylosis. Diffuse disc bulge. Patent central canal. Facet ligamentum flavum hypertrophy. Marked right and marked left neural foraminal narrowing L2-3: Moderate spondylosis. Diffuse disc bulge. Mild central canal stenosis. Facet ligamentum flavum hypertrophy. Moderate bilateral neural foraminal narrowing. L3-4: Moderate spondylosis. Diffuse disc bulge with concavity of the anterior thecal sac. Mild central canal stenosis. Facet ligamentum flavum hypertrophy. Mild facet diastases. Moderate bilateral neural foraminal narrowing. L4-5: Moderate spondylosis. Diffuse disc bulge with concavity of anterior thecal sac. Mild central canal stenosis. Facet ligamentum flavum hypertrophy. Moderate bilateral neural foraminal narrowing. L5-S1: Advanced spondylosis. Diffuse disc bulge. Concavity of anterior thecal sac. Mild central canal stenosis. Facet ligamentum flavum hypertrophy. Marked bilateral neural foraminal narrowing MR/MR lumbar spine wo con IMPRESSION: Multilevel discovertebral degenerative changes. Levels of mild central canal stenosis. Neural foraminal narrowing as above. Pre-MRI plain film assessment: 2 views lumbar spine moderate scoliosis. Mild degenerative listhesis. Multilevel moderate spondylosis. Lower lumbar hypertrophic facet changes. Impression dictated by: Amado Raza M.D.08/02/2023 3:21 PM Dictation Location: [facility]14 Transcribed By: [facility] 08/02/23 152 Dictated By: Amado Raza DO 08/02/23 1514 Signed By: 08/02/23 152 [facility] Office Visit (Cardiology)on 10-04-2022 Follow-up visit Diagnoses/Problems Assessed CAD (coronary artery disease) (414.00) (I25.10) S/P CABG (coronary artery bypass graft) (V45.81) (Z95.1) STEMI (ST elevation myocardial infarction) (410.90) (I21.3) Status post insertion of drug eluting coronary artery stent (V45.82) (Z95.5) Lung mass (786.6) (R91.8) Hyperlipidemia (272.4) (E78.5) Preoperative cardiovascular examination (V72.81) (Z01.810) Class 1 obesity with body mass index (BMI) of 32.0 to 32.9 in adult (278.00,V85.32) (E66.9,Z68.32) Former smoker (V15.82) (Z87.891) QUIT 15 YEARS AGO 2006- SMOKED ABOUT 2 PPD Orders CAD (coronary artery disease) Renew: Aspirin EC 81 MG Oral Tablet Delayed Release; TAKE 1 TABLET DAILY Chest pain Renew: Nitroglycerin 0.4 MG Sublingual Tablet Sublingual; PLACE 1 TABLET UNDER THE TONGUE EVERY 5 MINUTES FOR UP TO 3 DOSES NEEDED FOR CHEST PAIN.CALL 911 IF PAIN PERSISTS Class 1 obesity with body mass index (BMI) of 32.0 to 32.9 in adult Healthy Weight Tips; Status:Complete - Retrospective Authorization; Done: [id number] Some eating tips that can help you lose weight.; Status:Complete - Retrospective Authorization; Done: [id number] Hyperlipidemia Renew: Atorvastatin Calcium 80 MG Oral Tablet; TAKE 1 TABLET AT BEDTIME S/P CABG (coronary artery bypass graft), Status post insertion of drug eluting coronary artery stent Start: Clopidogrel Bisulfate 75 MG Oral Tablet (Plavix); TAKE 1 TABLET DAILY SocHx: Former smoker Tobacco Use Screening; Status:Complete; Done: [id number] Patient Instructions Please bring all medicines, vitamins, and herbal supplements with you when you come to the office. Prescriptions will not be filled unless you are compliant with your follow up appointments or have a follow up appointment scheduled as per instruction of your physician. Refills should be requested at the time of your visit. Dr. Walt Barragan, [address], [place] [address] to do surgery to remove bacterial fungus from lung. to stop Brilinta, start taking plavix 75mg once daily. patient to stop Plavix and aspirin 5-7 days prior to surgery. Follow up in 1 year. Chief Complaint 61-year-old gentleman returns annual follow-up overall is doing well without any cardiovascular complaints. 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 He needs preoperative clearance prior to surgical resection from my standpoint he is clear. 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 Last catheterization from this June 2022 revealed widely patent grafts x3, widely patent stent in the vein graft to the RCA, and preserved left ventricular function with ejection fraction of 50 to 55%. He has underlying COPD, former smoker, the above-mentioned previous non-STEMI, remote CABG, remote stenting of the vein graft to the RCA, he is mildly overweight. Recommendations he is cleared for his intended pulmonary mass resection with thoracic surgery, he will need to hold his clopidogrel and aspirin for 5 days prior to surgical intervention, reinitiate thereafterwards and will follow-up in 1-year-old Surgical History Problems History of Cardiac catheterization with stent placement History of Cataract surgery History of Coronary artery bypass graft History of Dental surgery History of Lung biopsy Current Meds Medication NameInstruction Aspirin EC 81 MG Oral Tablet Delayed ReleaseTAKE 1 TABLET DAILY. Atorvastatin Calcium 80 MG Oral TabletTAKE 1 TABLET AT BEDTIME. Brilinta 90 MG Oral TabletTAKE 1 TABLET TWICE DAILY. Isosorbide Mononitrate ER 60 MG Oral Tablet Extended Release 24 HourTAKE 1 TABLET ONCE DAILY. Metoprolol Tartrate 25 MG Oral TabletTAKE 1 TABLET TWICE DAILY. Nitroglycerin 0.4 MG [address] Tablet SublingualPL[address] 1 TABLET UNDER THE TONGUE EVERY 5 MINUTES FOR UP TO 3 DOSES NEEDED FOR CHEST PAIN.CALL 911 IF PAIN PERSISTS. Tamsulosin HCl - 0.4 MG Oral Capsule1 TAB DAILY Patient did not bring medication list or bottles. Updated verbally with patient Allergies Medication No Known Drug Allergies Recorded By: Deanna Bronson; 02/10/2022 3:04:08 PM Social History Problems Caffeine use (V49.89) (Z78.9) Former smoker (V15.82) (Z87.891) QUIT 15 YEARS AGO 2006- SMOKED ABOUT 2 PPD No alcohol use No illicit drug use Review of Systems Constitutional: not feeling tired. Cardiovascular: chest pain, but no intermittent leg claudication and as noted in HPI. Respiratory: no cough and no shortness of breath. Gastrointestinal: no change in bowel habits and no blood in stools. Integumentary: no skin rashes. Neurological: no seizures and no frequent falls. All other systems have been reviewed and are negative for complaint. Vitals Vital Signs Recorded: 04Oct2022 09:52AM Heart Ra (more content not included)... Normal Iddiction Tobacco Screening.on 022 Adult depression screening assessment No [facility] 250 DO Work Phone: Tobacco use status CPHS b) No [facility] 250 DO Work Phone: Activated partial thrombopla stin time (aPTT) in platelet poor plasma by coagulation aOrdered By: Jermaine Jackson on 07-28-2022 aPTT Coag (PPP) [Time] 34.9 s 25.1-36.5 [facility] Basophils Auto (Bld) [#/Vol] Ordered By: Jermaine Jackson on 07-28-2022 Basophils (Bld) [#/Vol] 0.0 10*3/uL 0.0-0.2 [facility] Basophils/100 WBC Auto (Bld) Ordered By: Jermaine Jackson on 07-28-2022 Basophils/100 WBC (Bld) 0.5 % . [facility] Blood hemoglobin measurement (mass/volume)Ordered By: Jermaine Jackson on 07-28-2022 Hemoglobin (Bld) [Mass/Vol] 13.9 g/dL 13.0-17.0 [facility] Blood leukocytes automated c ount (number/volume)Ordered By: Jermaine Jackson on 07-28-2022 WBC (Bld) [#/Vol] 5.6 10*3/uL 4.5-11.0 [facility] Creatinine and Glomerular fi ltration rate.predicted panel (S/P/Bld)Ordered By: Jaswinder Flores on 07-28-2022 Creatinine [Mass/Vol] 1.00 mg/dL 0.64-1.27 [facility] Eosinophils Auto (Bld) [#/Vo l]Ordered By: Jermaine Jackson on 07-28-2022 Eosinophils (Bld) [#/Vol] 0.3 10*3/uL 0.0-0.45 [facility] Eosinophils/100 WBC Auto (Bl d)Ordered By: Jermaine Jackson on 07-28-2022 Eosinophils/100 WBC (Bld) 5.3 % . [facility] Erythrocyte distribution wid th Auto (RBC) [Ratio]Ordered By: Jermaine Jackson on 07-28-2022 Erythrocyte distribution width (RBC) [Ratio] 13.0 % 12.0-14.8 [facility] Estimated glomerular filtrat ion rate (GFR) non- AmericanOrdered By: Jaswinder Flores on 07-28-2022 GFR/1.73 sq M.predicted among non-blacks MDRD (S/P/Bld) [Vol rate/Area] > 60 mL/Min [facility] Glucose Glucometer (BldC) [M ass/Vol]Ordered By: Jaswinder Flores on 07-28-2022 Glucose [Mass/Vol] 145 mg/dL [facility] Comment on above: Random Glucose Refer ence Range is dependent on time and content of last meal. Glucose of more than 200 mg/dL in a nonstressed, ambulatory subject supports the diagnosis of Diabetes Mellitus. Hematocrit Auto (Bld) [Volum e fraction]Ordered By: Jermaine Jackson on 07-28-2022 Hematocrit (Bld) [Volume fraction] 40.5 % 38.8-50.0 [facility] Laboratory - CoagulationOrde red By: Jermaine Jackson on 07-28-2022 PT Coag (PPP) [Time] 12.0 s 9.0-12.9 [facility] - Hematology and Cell countsOrdered By: Jermaine Jackson on 07-28-2022 Nucleated RBC/100 WBC (Bld) [Ratio] 0.2 % 0-0.5 [facility] Lymphocytes Auto (Bld) [#/Vo l]Ordered By: Jermaine Jackson on 07-28-2022 Lymphocytes (Bld) [#/Vol] 1.4 10*3/uL 1.00-4.8 [facility] Lymphocytes/100 WBC Auto (Bl d)Ordered By: Jermaine Jackson on 07-28-2022 Lymphocytes/100 WBC (Bld) 24.6 % . [facility] MCH Auto (RBC) [Entitic mass ]Ordered By: Jermaine Jackson on 07-28-2022 MCH (RBC) [Entitic mass] 30.4 pg 27.5-35.2 [facility] MCHC Auto (RBC) [Mass/Vol]Or dered By: Jermaine Jackson on 07-28-2022 MCHC (RBC) [Mass/Vol] 34.3 g/dL 32.5-35.6 [facility] MCV Auto (RBC) [Entitic vol] Ordered By: Jermaine Jackson on 07-28-2022 MCV (RBC) [Entitic vol] 88.8 fL 83.5-101 [facility] Monocytes Auto (Bld) [#/Vol] Ordered By: Jermaine Jackson on 07-28-2022 Monocytes (Bld) [#/Vol] 0.6 10*3/uL 0.0-0.8 [facility] Monocytes/100 WBC Auto (Bld) Ordered By: Jermaine Jackson on 07-28-2022 Monocytes/100 WBC (Bld) 11.1 % . [facility] Neutrophils Auto (Bld) [#/Vo l]Ordered By: Jermaine Jackson on 07-28-2022 Neutrophils (Bld) [#/Vol] 3.3 10*3/uL 1.8-7.7 [facility] Neutrophils/100 WBC Auto (Bl d)Ordered By: Jermaine Jackson on 07-28-2022 Neutrophils/100 WBC (Bld) 58.5 % . [facility] No Panel InformationOrdered By: Jaswinder Flores on 07-28-2022 Estimated GFR () > 60 mL/Min [facility] Comment on above: GFR estimated refere nce range: According to KDOQI guidelines, <60 ml/min/1.73m2 is sufficient to diagnose a patient with chronic kidney disease. Pharmacy Creatinine Clearance (Chem 90.35 [facility] Platelet mean volume Auto (B ld) [Entitic vol]Ordered By: Jermaine Jackson on 07-28-2022 Platelet mean volume (Bld) [Entitic vol] 7.9 fL 6.6-10.1 [facility] Platelet poor plasma interna tional normalized ratio (INR) by coagulation assay (relatOrdered By: Jermaine Jackson on 07-28-2022 INR Coag (PPP) [Relative time] 1.1 {INR} [facility] Comment on above: INR Therapeutic Rang e A) Pre- and Peroperative OAT started two weeks before surgery. NOT HIP SURGERY: 1.5 - 2.5 HIP SURGERY: 2 - 3B) Primary and secondary prevention of venous THROMBOSIS: 2 - 3C) Active venous thrombosis, pulmonary embolismand prevention of recurrent venous thrombosis: 2 - 3D) Prevention of arterial thromboembolismincluding patients with mechanical heart valves: 3 - 4.5 Platelets Auto (Bld) [#/Vol] Ordered By: Jermaine Jackson on 07-28-2022 Platelets (Bld) [#/Vol] 209 10*3/uL 150-450 [facility] RBC Auto (Bld) [#/Vol]Ordere d By: Jermaine Jackson on 07-28-2022 RBC (Bld) [#/Vol] 4.56 10*6/uL 3.90-5.60 [facility] Serum or plasma anion gap de terminationOrdered By: Jermaine Jackson on 07-28-2022 Anion gap [Moles/Vol] 13.0 mmol/L 6.0-15.0 [facility] Serum or plasma chloride micki surement (moles/volume)Ordered By: Jermaine Jackson on 07-28-2022 Chloride [Moles/Vol] 102 mmol/L 95-114 [facility] Serum or plasma potassium me asurement (moles/volume)Ordered By: Jermaine Jackson on 07-28-2022 Potassium [Moles/Vol] 4.2 mmol/L 3.5-5.1 [facility] Serum or plasma sodium measu rement (moles/volume)Ordered By: Jermaine Jackson on 07-28-2022 Sodium [Moles/Vol] 136 mmol/L 136-146 [facility] Serum or plasma total carbon dioxide measurement (moles/volume)Ordered By: Jermaine Jackson on 07-28-2022 CO2 [Moles/Vol] 25.2 mmol/L 22.0-30.0 [facility] Serum or plasma urea nitroge n measurement (mass/volume)Ordered By: Jermaine Jackson on 07-28-2022 Urea nitrogen [Mass/Vol] 11 mg/dL 9-23 [facility] Troponin I.cardiac [Mass/vol ume] in Serum or Plasma by High sensitivity methodOrdered By: Jaswinder Flores on 07-27-2022 Troponin I.cardiac High sensitivity method [Mass/Vol] 304 pg/mL 0-20 [facility] Comment on above: Results calledat 100 2 on 07/27/22 Albumin [Mass/volume] in Ser um or PlasmaOrdered By: Jaswinder Flores on 07-26-2022 Albumin [Mass/Vol] 3.7 g/dL 3.2-5.5 [facility] BNPon 07-26-2022 Natriuretic peptide B (Bld) [Mass/Vol] 62.0 pg/mL Normal <=900.0 [facility] Comment on above: Performed By: #### C MADM, BNP, CMP ####[facility] [id number] [place], [place] [address]DvDr. Sg Mccollum CARDIAC KHANG ADMITon 022 CK [Catalytic activity/Vol] 111 U/L Normal 39-308 [facility] Comment on above: Performed By: #### C MADM, BNP, CMP #### [facility] [address] [place], [place] [address] Dr. Sg Mccollum CK.MB [Mass/Vol] 2.36 ng/mL Normal <=3.[address] [facility] Comment on above: Performed By: #### C MADM, BNP, CMP #### [facility] [address] [place] [address] Dr. Sg Mccollum HSTROP 42.8 pg/mL Normal 4.0-76.1 [facility] Comment on above: Result Comment: CUT- OFF POINTS HAVE BEEN ESTABLISHED BASED ON THE FOURTH UNIVERSAL DEFINITIONS OF MYOCARDIAL INFARCTION. THE UPPER REFERENCE LIMIT (URL) OF TROPONIN, DEFINED THE 99TH PERCENTILE OF cTnI DISTRIBUTION IN A REFERENCE POPULATION, HAS BEEN CONFIRMED THE DECISION THRESHOLD FOR OK DIAGNOSIS. Performed By: #### C MADM, BNP, CMP #### [facility] [address] [place] [address] Dr. Sg Mccollum NAKIA 78 ng/mL Normal 16-96 [facility] Comment on above: Performed By: #### C MADM, BNP, CMP #### [facility] [address] [place] [address] Dr. Sg Mccollum CBC AUTO DIFFon 07-26-2022 BASO # 0.0 103/ul Normal 0.0-0.1 [facility] Comment on above: Performed By: #### C BC #### [facility] [address] [place] [address] Dr. Sg Mccollum Basophils/100 WBC (Bld) 0.2 % Normal 0.2-2.0 [facility] Comment on above: Performed By: #### C BC #### [facility] [address] [place] [address] Dr. Sg Mccollum EO # 0.3 103/ul Normal 0.0-0.7 [facility] Comment on above: Performed By: #### C BC #### [facility] [address] [place] [address] Dr. Sg Mccollum Eosinophils/100 WBC (Bld) 5.4 % Normal 0.9-7.0 [facility] Comment on above: Performed By: #### C BC #### [facility] [address] [place] [address] Dr. Sg Mccollum Erythrocyte distribution width (RBC) [Ratio] 12.5 % Normal 11.0-15.0 [facility] Comment on above: Performed By: #### C BC #### [facility] [address] [place] [address] Dr. Sg Mccollum Hematocrit (Bld) [Volume fraction] 40.8 % Critically low 42.0-54.0 [facility] Comment on above: Performed By: #### C BC #### [facility] [address] [place] [address] Dr. Sg Mccollum Hemoglobin (Bld) [Mass/Vol] 13.8 g/dL Critically low 14.0-18.0 [facility] Comment on above: Performed By: #### C BC #### [facility] [address] [place] [address] Dr. Sg Mccollum IG # 0.01 10e3/ul Normal 0.00-0.03 [facility] Comment on above: Performed By: #### C BC #### [facility] [address] [place] [address] Dr. Sg Mccollum IG % 0.2 % Normal 0.0-0.5 [facility] Comment on above: Performed By: #### C BC #### [facility] [address] [place] [address] Dr. Sg Mccollum LYMPH # 1.1 103/ul Critically low 1.2-3.8 [facility] Comment on above: Performed By: #### C BC #### [facility] [address] [place] [address] Dr. Sg Mccollum Lymphocytes/100 WBC (Bld) 19.2 % Critically low 20.5-60.0 [facility] Comment on above: Performed By: #### C BC #### [facility] [address] [place] [address] Dr. Sg Mccollum MANUAL DIFF REQ NO Normal [facility] Comment on above: Performed By: #### C BC #### [facility] [address] [place] [address] Dr. Sg Mccollum MCH (RBC) [Entitic mass] 29.8 pg Normal 25.9-34.0 [facility] Comment on above: Performed By: #### C BC #### [facility] [address] [place] [address] Dr. Sg Mccollum MCHC (RBC) [Mass/Vol] 33.8 g/dL Normal 29.9-35.2 [facility] Comment on above: Performed By: #### C BC #### [facility] [address] [place] [address] Dr. Sg Mcclolum MCV (RBC) [Entitic vol] 88.1 fL Normal 80.0-94.0 [facility] Comment on above: Performed By: #### C BC #### [facility] [address] [place] [address] [address] Sg Mccollum MONO # 0.6 103/ul Normal 0.3-0.8 [facility] Comment on above: Performed By: #### C BC #### [facility] [address] [place] [address] Dr. Sg Mccollum Monocytes/100 WBC (Bld) 10.8 % Normal 1.7-12.0 [facility] Comment on above: Performed By: #### C BC #### [facility] [address] [place] [address] Dr. Sg Mccollum NEUT # 3.6 103/ul Normal 1.4-6.5 [facility] Comment on above: Performed By: #### C BC #### [facility] [address] [place] [address] Dr. Sg Mccollum Neutrophils/100 WBC (Bld) 64.2 % Normal 43.0-75.0 [facility] Comment on above: Performed By: #### C BC #### [facility] [address] [place] [address] Dr. Sg Mccollum Platelet mean volume (Bld) [Entitic vol] 9.4 fL Critically low 9.5-13.5 [facility] Comment on above: Performed By: #### C BC #### [facility] [address] [place] [address] Dr. Sg Mccollum PLT 225 103/ul Normal 150-450 [facility] Comment on above: Performed By: #### C BC #### [facility] [address] [place] [address] Dr. Sg Mccollum RBC 4.63 106/ul Critically low 4.70-6.10 [facility] Comment on above: Performed By: #### C BC #### [facility] [address] [place], [place] [address] Dr. Sg Mccollum WBC 5.6 103/ul Normal 4.0-11.0 [facility] Comment on above: Performed By: #### C BC #### [facility] [address] [place], [place] [address] Dr. Sg Mccollum Cholesterol [Mass/volume] in Serum or PlasmaOrdered By: Jaswinder Flores on 07-26-2022 Cholesterol [Mass/Vol] 103 mg/dL 140-200 [facility] Comment on above: Chol less than 200 m g/dl low riskChol 201-239 mg/dl borderline riskChol 240 mg/dl and greater high risk Cholesterol in LDL Calc [Mas s/Vol]Ordered By: Jaswinder Leir on 07-26-2022 Cholesterol in LDL [Mass/Vol] 51 mg/dL 0-100 [facility] Comment on above: LDL ATP III CLASSIFI CATIONLDL less than 100 mg/dL OptimalLDL 100-129 mg/dL Near or above optimalLDL 130-159 mg/dL Borderline highLDL 160-189 mg/dL HighLDL greater than 189 mg/dL Very high Cholesterol in VLDL Calc [Ma ss/Vol]Ordered By: Jaswinder Flores on 07-26-2022 Cholesterol in VLDL [Mass/Vol] 21 mg/dL [facility] Covid-19 PCR (CVDTBH)on 06-30 SARS-CoV-2 (COVID-19) RNA DONTE+probe Ql (Unsp spec) Not detected Normal NOT DETECTED [facility] Comment on above: Result Comment: When diagnostic testing is negative, the possibility of a false negative should be considered in the context of a patient's recent exposures and the presence of clinical signs and symptoms consistent with SARS-CoV-2. This test is not yet approved or cleared by the [place] FDA. When there are no FDA-approved or cleared tests available, and other criteria are met, FDA can make tests available under an emergency access mechanism called an Emergency Use Authorization (EUA). The EUA for this test is supported by the [employer] of Health and Human Service's declaration that circumstances exist to justify the emergency use of in vitro diagnostics for the detection and/or diagnosis of the virus that causes COVID-19. This EUA will remain in effect for the duration of the COVID-19 declaration justifying emergency of IVDs, unless it is terminated or revoked by the FDA (after which the test may no longer be used). Performed By: #### C VDTBH #### [facility] [address] [place] [address] Dr. Sg Mccollum Globulin Calc (S) [Mass/Vol] Ordered By: Jaswinder Flores on 07-26-2022 Globulin (S) [Mass/Vol] 2.8 g/dL [facility] Glucose mean value [Mass/vol ume] in Blood Estimated from glycated hemoglobinOrdered By: Jaswinder Flores on 07-26-2022 Average glucose Estimated from glycated hemoglobin (Bld) [Mass/Vol] 151 mg/dL [facility] Hemoglobin A1c percentageOrd ered By: Jaswinder Flores on 07-26-2022 HbA1c (Bld) [Mass fraction] 6.9 % 4.3-5.6 [facility] Comment on above: Increased risk for d iabetes: 5.7 - 6.4diabetes: >6.4glycemic control for adults with diabetes: <7.0 Laboratory - Chemistry and C hemistry - challengeOrdered By: Jaswinder Flores on 07-26-2022 Magnesium [Mass/Vol] 2.0 mg/dL 1.6-2.6 [facility] PROF 14(COMP METB)on 022 Albumin [Mass/Vol] 3.9 g/dL Normal 3.4-5.0 [facility] Comment on above: Performed By: #### C MADM, BNP, CMP #### [facility] [address] [place] [address] Dr. Sg Mccollum Albumin/Globulin [Mass ratio] 1.2 {ratio} Normal [facility] Comment on above: Performed By: #### C MADM, BNP, CMP #### [facility] [address] [place] [address] Dr. Sg Mccollum ALP [Catalytic activity/Vol] 101 U/L Normal 46-116 [facility] Comment on above: Performed By: #### C MADM, BNP, CMP #### [facility] [address] [place] [address] [address] Sg Mccollum ALT [Catalytic activity/Vol] 33 U/L Normal 16-63 [facility] Comment on above: Performed By: #### C MADM, BNP, CMP #### [facility] [address] [place] [address] Dr. Sg Mccollum Anion gap [Moles/Vol] 12.8 mmol/L Normal [facility] Comment on above: Performed By: #### C MADM, BNP, CMP #### [facility] [address] [place] [address] Dr. Sg Mccollum AST [Catalytic activity/Vol] 23 U/L Normal 15-37 [facility] Comment on above: Performed By: #### C MADM, BNP, CMP #### [facility] [address] [place] [address] Dr. Sg Mccollum Bilirubin [Mass/Vol] 0.4 mg/dL Normal 0.2-1.0 [facility] Comment on above: Performed By: #### C MADM, BNP, CMP #### [facility] [address] [place] [address] Dr. Sg Mccollum Calcium [Mass/Vol] 8.9 mg/dL Normal 8.5-10.1 [facility] Comment on above: Performed By: #### C MADM, BNP, CMP #### [facility] [address] [place] [address] Dr. Sg Mccollum Chloride [Moles/Vol] 103 mmol/L Normal 98-107 [facility] Comment on above: Performed By: #### C MADM, BNP, CMP #### [facility] [address] [place] [address] Dr. Sg Mccollum CO2 [Moles/Vol] 25.2 mmol/L Normal 21.0-32.[address] [facility] Comment on above: Performed By: #### C MADM, BNP, CMP #### [facility] [address] [place] [address] [address] Sg Mccollum Creatinine [Mass/Vol] 1.04 mg/dL Normal 0.70-1.30 [facility] Comment on above: Performed By: #### C MADM, BNP, CMP #### [facility] [address] [place] [address] [address] Sg Mccollum EGFR-AF MAURITIAN >60 Normal >=[address] [facility] Comment on above: Performed By: #### C MADM, BNP, CMP #### [facility] [address] [place] [address] [address] Sg Mccollum EGFR-NON AF MAURITIAN >60 Normal >=60 [facility] Comment on above: Performed By: #### C MADM, BNP, CMP #### [facility] [address] [place] [address] [address] Sg Mccollum Globulin (S) [Mass/Vol] 3.3 g/dL Normal [facility] Comment on above: Performed By: #### C MADM, BNP, CMP #### [facility] [address] [address] [address] Sg Mccollum Glucose [Mass/Vol] 146 mg/dL Critically high 74-106 [facility] Comment on above: Performed By: #### C MADM, BNP, CMP #### [facility] [address] [address] [address] Sg Mccollum Potassium [Moles/Vol] 4.0 mmol/L Normal 3.5-5.1 [facility] Comment on above: Performed By: #### C MADM, BNP, CMP #### [facility] [address] [address] [address] Sg Mccollum Protein [Mass/Vol] 7.2 g/dL Normal 6.4-8.2 [facility] Comment on above: Performed By: #### C MADM, BNP, CMP #### [facility] [address] [address] [address] Sg Mccollum Sodium [Moles/Vol] 137 mmol/L Normal 136-145 [facility] Comment on above: Performed By: #### C MADM, BNP, CMP #### [facility] [address] [address] [address] Sg Mccollum Urea nitrogen [Mass/Vol] 6.0 mg/dL Critically low 7.0-18.0 [facility] Comment on above: Performed By: #### C MADM, BNP, CMP #### [facility] [address] [address] [address] Sg Mccollum Urea nitrogen/Creatinine [Mass ratio] 5.8 mg/mg Normal [facility] Comment on above: Performed By: #### C MADM, BNP, CMP #### [facility] [address] [address] [address] Sg Mccollum PROTIMEon 07-26-2022 INR Coag (PPP) [Relative time] 0.97 {INR} Normal [facility] Comment on above: Performed By: #### P TT, PT #### [facility] [address] [place] [address] Dr. Sg Mccollum INR GUIDELINES SEE BELOW Normal [facility] Comment on above: Result Comment: OLE RED INR: 2.0 - 3.0 CONDITIONS NOT LISTED BELOW 2.5 - 3.5 FOR PROSTHETIC HEART VALVE REPLACEMENT 2.5 - 3.5 RECURRENT THROMBOSIS Performed By: #### P TT, PT #### [facility] [address] [place] [address] Dr. Sg Mccollum PT Coag (PPP) [Time] 10.5 s Normal 9.0-11.6 [facility] Comment on above: Performed By: #### P TT, PT #### [facility] [address] [place] [address] Dr. Sg Mccollum PTTon 07-26-2022 aPTT Coag (Bld) [Time] 26.1 s Normal 22.3-36.2 [facility] Comment on above: Performed By: #### P TT, PT #### [facility] [address] [place] [address] Dr. Sg Mccollum Phosphate [Mass/volume] in S sanjeev or PlasmaOrdered By: Jaswinder Flores on 07-26-2022 Phosphate [Mass/Vol] 3.7 mg/dL 2.5-4.6 [facility] Protein [Mass/volume] in Ser um or PlasmaOrdered By: Jaswinder Flores on 07-26-2022 Protein [Mass/Vol] 6.5 g/dL 6.1-7.9 [facility] Serum or plasma alanine soto otransferase measurement without P-5'-P (enzymatic activiOrdered By: Jaswinder Flores on 07-26-2022 ALT No additional P-5'-P [Catalytic activity/Vol] 26 U/L 10-60 [facility] Serum or plasma albumin/glob ulin mass ratioOrdered By: Jaswinder Flores on 07-26-2022 Albumin/Globulin [Mass ratio] 1.3 {ratio} [facility] Serum or plasma alkaline toi sphatase measurement (enzymatic activity/volume)Ordered By: Jaswinder Flores on 07-26-2022 ALP [Catalytic activity/Vol] 84 U/L 32-92 [facility] Serum or plasma aspartate am inotransferase measurement (enzymatic activity/volume)Ordered By: Jaswinder Flores on 07-26-2022 AST [Catalytic activity/Vol] 25 U/L 10-42 [facility] Serum or plasma calcium taj urement (mass/volume)Ordered By: Jaswinder Flores on 07-26-2022 Calcium [Mass/Vol] 9.1 mg/dL 8.2-10.2 [facility] Serum or plasma glucose taj urement (mass/volume)Ordered By: Jaswinder Flores on 07-26-2022 Glucose [Mass/Vol] 93 mg/dL 70-100 [facility] Comment on above: ADA recommended refe rence rangeRandom Glucose Reference Range is dependent on time and content of last meal. Glucose of more than 200 mg/dL in a nonstressed, ambulatory subject supports the diagnosis of Diabetes Mellitus. Serum or plasma high density lipoprotein (HDL) cholesterol measurementOrdered By: Jaswinder Flores on 07-26-2022 Cholesterol in HDL [Mass/Vol] 30 mg/dL 29-71 [facility] Comment on above: HDL CHOL ATP-III CLA SSIFICATION Cardiovascular RiskHDL > or equal to 60 mg/dL LOWHDL < 40 mg/dL HIGH Serum or plasma total biliru bin measurement (mass/volume)Ordered By: Jaswinder Flores on 07-26-2022 Bilirubin [Mass/Vol] 0.7 mg/dL 0.3-1.2 [facility] Serum or plasma total choles terol/high density lipoprotein (HDL) cholesterol mass ratOrdered By: Jaswinder Flores on 07-26-2022 Cholesterol.total/Cho lesterol in HDL [Mass ratio] 3.4 {ratio} <5.0 [facility] TROPONIN, HIGH SENSITIVITYon 07-26-2022 HSTROP 546.5 pg/mL Critically high 4.0-76.[address] [facility] Comment on above: Result Comment: CUT- OFF POINTS HAVE BEEN ESTABLISHED BASED ON THE FOURTH UNIVERSAL DEFINITIONS OF MYOCARDIAL INFARCTION. THE UPPER REFERENCE LIMIT (URL) OF TROPONIN, DEFINED THE 99TH PERCENTILE OF cTnI DISTRIBUTION IN A REFERENCE POPULATION, HAS BEEN CONFIRMED THE DECISION THRESHOLD FOR OK DIAGNOSIS. Performed By: #### H [facility] #### [facility] [address] [place] [address] Dr. Sg Mccollum Triglyceride [Mass/volume] i n Serum or PlasmaOrdered By: Jaswinder Flores on 07-26-2022 Triglyceride [Mass/Vol] 109 mg/dL 35-149 [facility] Comment on above: TRIG ATP III CLASSIF ICATIONTRIG less than 150 mg/dL NormalTRIG 150-199 mg/dL Borderline highTRIG 200-500 mg/dL High TRIG greater than 500 mg/dL Very highStandard traceable to the Center for Disease Conrtrol and Prevention (CDC) test method. XR CHEST 1 Von 07-26-2022 XR CHEST 1 V EXAMINATION: XR CHES T 1 V HISTORY: CHEST PAIN, UNSPECIFIED COMPARISON: XR chest 04/27/2021 FINDINGS: LUNGS: Underexpanded lungs with mild haziness within lung bases. VASCULATURE: No increased pulmonary vasculature. PLEURA: No pneumothorax, effusion, or pleural thickening. CARDIAC: No cardiomegaly or cardiac silhouette abnormality. MEDIASTINUM: No visible mass or adenopathy. BONES: No fracture or visible bone lesion. OTHER: Prior sternotomy. IMPRESSION: 1. Low lung volume examination with trace amount of bibasilar atelectasis or possibly infiltrates. Electronically authenticated by: SAUNDRA GOEL Date: 2022-07-26 12:14 Normal [facility] CBC AUTO DIFFon 05-30-2022 BASO # 0.0 103/ul Normal 0.0-0.1 [facility] Comment on above: Performed By: #### C BC #### [facility] [address] [address] [address] Sg Mccollum Basophils/100 WBC (Bld) 0.4 % Normal 0.2-2.0 [facility] Comment on above: Performed By: #### C BC #### [facility] [address] [place] [address] Dr. Sg Mccollum EO # 0.2 103/ul Normal 0.0-0.7 [facility] Comment on above: Performed By: #### C BC #### [facility] [address] [address] [address] Sg Mccollum Eosinophils/100 WBC (Bld) 3.4 % Normal 0.9-7.0 [facility] Comment on above: Performed By: #### C BC #### [facility] [address] [place] [address] Dr. Sg Mccollum Erythrocyte distribution width (RBC) [Ratio] 12.7 % Normal 11.0-15.0 [facility] Comment on above: Performed By: #### C BC #### [facility] [address] [place] [address] Dr. Sg Mccollum Hematocrit (Bld) [Volume fraction] 40.8 % Critically low 42.0-54.0 [facility] Comment on above: Performed By: #### C BC #### [facility] [address] [place] [address] Dr. Sg Mccollum Hemoglobin (Bld) [Mass/Vol] 13.5 g/dL Critically low 14.0-18.0 [facility] Comment on above: Performed By: #### C BC #### [facility] [address] [place] [address] Dr. Sg Mccollum IG # 0.02 10e3/ul Normal 0.00-0.03 [facility] Comment on above: Performed By: #### C BC #### [facility] [address] [place] [address] Dr. Sg Mccollum IG % 0.4 % Normal 0.0-0.5 [facility] Comment on above: Performed By: #### C BC #### [facility] [address] [place] [address] Dr. Sg Mccollum LYMPH # 1.1 103/ul Critically low 1.2-3.8 [facility] Comment on above: Performed By: #### C BC #### [facility] [address] [place] [address] Dr. Sg Mccollum Lymphocytes/100 WBC (Bld) 22.0 % Normal 20.5-60.0 [facility] Comment on above: Performed By: #### C BC #### [facility] [address] [place] [address] Dr. Sg Mccollum MANUAL DIFF REQ NO Normal [facility] Comment on above: Performed By: #### C BC #### [facility] [address] [place] [address] Dr. Sg Mccollum MCH (RBC) [Entitic mass] 30.0 pg Normal 25.9-34.0 [facility] Comment on above: Performed By: #### C BC #### [facility] [address] [place] [address] Dr. Sg Mccollum MCHC (RBC) [Mass/Vol] 33.1 g/dL Normal 29.9-35.2 [facility] Comment on above: Performed By: #### C BC #### [facility] [address] [place] [address] Dr. Sg Mccollum MCV (RBC) [Entitic vol] 90.7 fL Normal 80.0-94.0 [facility] Comment on above: Performed By: #### C BC #### [facility] [address] [place] [address] Dr. Sg Mccollum MONO # 0.5 103/ul Normal 0.3-0.8 [facility] Comment on above: Performed By: #### C BC #### [facility] [address] [place] [address] Dr. Sg Mccollum Monocytes/100 WBC (Bld) 9.6 % Normal 1.7-12.0 [facility] Comment on above: Performed By: #### C BC #### [facility] [address] [place] [address] Dr. Sg Mccollum NEUT # 3.2 103/ul Normal 1.4-6.5 [facility] Comment on above: Performed By: #### C BC #### [facility] [address] [place] [address] Dr. Sg Mccollum Neutrophils/100 WBC (Bld) 64.2 % Normal 43.0-75.0 [facility] Comment on above: Performed By: #### C BC #### [facility] [address] [place] [address] Dr. Sg Mccollum Platelet mean volume (Bld) [Entitic vol] 9.4 fL Critically low 9.5-13.5 [facility] Comment on above: Performed By: #### C BC #### [facility] [address] [place] [address] Dr. Sg Mccollum PLT 232 103/ul Normal 150-450 [facility] Comment on above: Performed By: #### C BC #### [facility] [address] [place] [address] Dr. Sg Mccollum RBC 4.50 106/ul Critically low 4.70-6.10 [facility] Comment on above: Performed By: #### C BC #### [facility] [address] [place] [address] Dr. Sg Mccollum WBC 5.0 103/ul Normal 4.0-11.0 [facility] Comment on above: Performed By: #### C BC #### [facility] [address] [place] [address] ABD/PELVIS WO CONon 05-30 CT ABD/PELVIS WO CON EXAMINATION: CT ABD/PELVIS WO CON HISTORY: Left flank pain for 6 days, increasing in severity COMPARISON: No relevant comparison available. TECHNIQUE: Axial, Coronal, and Sagittal images were created without IV contrast. Dose reduction techniques were achieved by using automated exposure control and/or adjustment of mA and/or kV according to patient size and/or use of iterative reconstruction technique. FINDINGS: LUNG BASES: Within posterior medial right lung base is a spiculated, partially cavitary mass which is only partially included, at least 3.3 x 2.6 x 2.1 cm. LIVER: Large cyst within right hepatic lobe. BILIARY: No dilatation or calcification. PANCREAS: No lesion, fluid collection, or abnormal duct dilatation. SPLEEN: No enlargement or focal lesion. ADRENALS: No mass or enlargement. KIDNEYS: Tiny nonobstructing stone within right kidney. Small cyst within left kidney. No stones or abnormal dilation of the ureters. BOWEL/MESENTERY: Diverticulosis of the sigmoid colon without acute inflammatory changes. No visible mass, obstruction, or bowel wall thickening. Normal appendix. AORTA/VASCULAR: No aneurysm or dissection. RETROPERITONEUM: No mass or adenopathy. LYMPH NODES: No adenopathy. URINARY BLADDER: 2 stones, approximately 8 mm in size each are within the posterior right aspect of the bladder adjacent the right ureter insertion. PELVIC ORGANS: No visible mass. Pelvic organs appropriate for patient age. ABDOMINAL WALL: Small fat filled umbilical hernia without strangulation. BONES: No bony lesion or fracture. OTHER: Negative. IMPRESSION: 1. Spiculated, partially cavitary lesion incompletely included on today's study within the posterior medial right lower lobe suspicious for neoplasm. Nonemergent CT imaging of the chest with IV contrast is recommended for additional evaluation. 2. Right nephrolithiasis. No acute findings. 3. 2 stones within the urinary bladder; recent passage versus chronic. Given the size of the stones and lack of periureteral stranding bilaterally, these are likely chronic. 4. Sigmoid diverticulosis without acute diverticulitis. Electronically authenticated by: SAUNDRA GOEL Date: 2022-05-30 13:[address] [facility] PROF 14(COMP METB)on 022 Albumin [Mass/Vol] 4.0 g/dL Normal 3.4-5.0 [facility] Comment on above: Performed By: #### C MP ####[facility] [address] [id number]. Sg Mccollum Albumin/Globulin [Mass ratio] 1.3 {ratio} Normal [facility] Comment on above: Performed By: #### C MP ####[facility] [address] [address]Dr. Sg Mccollum ALP [Catalytic activity/Vol] 76 U/L Normal 46-116 [facility] Comment on above: Performed By: #### C MP ####[facility] [address] [place], [place] [address]Dr. Sg Mccollum ALT [Catalytic activity/Vol] 26 U/L Normal 16-63 [facility] Comment on above: Performed By: #### C MP ####[facility] [address] [place], [place] [address]Dr. Sg Mccollum Anion gap [Moles/Vol] 10.3 mmol/L Normal [facility] Comment on above: Performed By: #### C MP ####[facility] [address] [place], [place] [address]Dr. Sg Chun AST [Catalytic activity/Vol] 18 U/L Normal 15-37 [facility] Comment on above: Performed By: #### C MP ####[facility] [address] [place], [place] [address]Dr. Sg Mccollum Bilirubin [Mass/Vol] 0.6 mg/dL Normal 0.2-1.0 [facility] Comment on above: Performed By: #### C MP ####[facility] [address] [place], [place] [address]Dr. Sg Chun Calcium [Mass/Vol] 9.0 mg/dL Normal 8.5-10.1 [facility] Comment on above: Performed By: #### C MP ####[facility] [address] [place], [place] [address]Dr. Sg Chun Chloride [Moles/Vol] 103 mmol/L Normal 98-107 [facility] Comment on above: Performed By: #### C MP ####[facility] [address] [place], [place] [id number]. Sg Mccollum CO2 [Moles/Vol] 30.1 mmol/L Normal 21.0-32.0 [facility] Comment on above: Performed By: #### C MP ####[facility] [address] [address]Dr. Sg Mccollum Creatinine [Mass/Vol] 1.11 mg/dL Normal 0.70-1.30 [facility] Comment on above: Performed By: #### C MP ####[facility] [address] [place], [place] [address]Dr. Sg Mccollum EGFR-AF MAURITIAN >60 Normal >=60 [facility] Comment on above: Performed By: #### C MP ####[facility] [address] [place], [place] [address]Dr. Sg Mccollum EGFR-NON AF MAURITIAN >60 Normal >=60 [facility] Comment on above: Performed By: #### C MP ####[facility] [address] [place], [place] [address]Dr. Sg Mccollum Globulin (S) [Mass/Vol] 3.2 g/dL Normal [facility] Comment on above: Performed By: #### C MP ####[facility] [address] [place], [place] [address]Dr. Sg Mccollum Glucose [Mass/Vol] 164 mg/dL Critically high 74-106 [facility] Comment on above: Performed By: #### C MP ####[facility] [address] [place], [place] [address]Dr. Sg Mccollum Potassium [Moles/Vol] 5.4 mmol/L Critically high 3.5-5.1 [facility] Comment on above: Performed By: #### C MP ####[facility] [address] [place], [place] [address]Dr. Sg Mccollum Protein [Mass/Vol] 7.2 g/dL Normal 6.4-8.2 [facility] Comment on above: Performed By: #### C MP ####[facility] [address] [place], [place] [address]Dr. Sg Mccollum Sodium [Moles/Vol] 138 mmol/L Normal 136-145 [facility] Comment on above: Performed By: #### C MP ####[facility] [address] [id number]. Sg Mccollum Urea nitrogen [Mass/Vol] 11.0 mg/dL Normal 7.0-18.0 [facility] Comment on above: Performed By: #### C MP ####[facility] [address] [id number]. Sg Mccollum Urea nitrogen/Creatinine [Mass ratio] 9.9 mg/mg Normal [facility] Comment on above: Performed By: #### C MP ####[facility] [address] [address]Dr. Sg Mccollum Activated partial thrombopla stin time (aPTT) in platelet poor plasma by coagulation aOrdered By: Jermaine Jackson on 05-11-2022 aPTT Coag (PPP) [Time] 30.0 s 25.1-36.5 [facility] Basophils Auto (Bld) [#/Vol] Ordered By: Jermaine Jackson on 05-11-2022 Basophils (Bld) [#/Vol] 0.0 10*3/uL 0.0-0.2 [facility] Basophils/100 WBC Auto (Bld) Ordered By: Jermaine Jackson on 05-11-2022 Basophils/100 WBC (Bld) 0.6 % . [facility] Blood hemoglobin measurement (mass/volume)Ordered By: Jermaine Jackson on 05-11-2022 Hemoglobin (Bld) [Mass/Vol] 14.1 g/dL 13.0-17.0 [facility] Blood leukocytes automated c ount (number/volume)Ordered By: Jermaine Jackson on 05-11-2022 WBC (Bld) [#/Vol] 5.7 10*3/uL 4.5-11.0 [facility] COVID-19 SOFIAOrdered By: Jermaine Jackson on 05-11-2022 SARS-CoV+SARS-CoV-2 (COVID-19) Ag IA.rapid Ql (Resp) Negative Negative [facility] Comment on above: This is a duplicate Aishwarya SARS Antigen (GENEVA) result to be used for statistical tracking purpose only. Cholesterol [Mass/volume] in Serum or PlasmaOrdered By: Jermaine Jackson on 05-11-2022 Cholesterol [Mass/Vol] 118 mg/dL 140-200 [facility] Comment on above: Chol less than 200 m g/dl low risk Chol 201-239 mg/dl borderline risk Chol 240 mg/dl and greater high risk Chol less than 200 m g/dl low riskChol 201-239 mg/dl borderline riskChol 240 mg/dl and greater high risk Cholesterol in LDL Calc [Mas s/Vol]Ordered By: Jermaine Jackson on 05-11-2022 Cholesterol in LDL [Mass/Vol] 45 mg/dL 0-100 [facility] Comment on above: LDL ATP III CLASSIFI CATION LDL less than 100 mg/dL Optimal LDL 100-129 mg/dL Near or above optimal LDL 130-159 mg/dL Borderline high LDL 160-189 mg/dL High LDL greater than 189 mg/dL Very high LDL ATP III CLASSIFI CATIONLDL less than 100 mg/dL OptimalLDL 100-129 mg/dL Near or above optimalLDL 130-159 mg/dL Borderline highLDL 160-189 mg/dL HighLDL greater than 189 mg/dL Very high Cholesterol in VLDL Calc [Ma ss/Vol]Ordered By: Jermaine Jackson on 05-11-2022 Cholesterol in VLDL [Mass/Vol] 41 mg/dL [facility] Creatinine and Glomerular fi ltration rate.predicted panel (S/P/Bld)Ordered By: Jermaine Jackson on 05-11-2022 Creatinine [Mass/Vol] 0.96 mg/dL 0.64-1.27 [facility] Eosinophils Auto (Bld) [#/Vo l]Ordered By: Jermaine Jackson on 05-11-2022 Eosinophils (Bld) [#/Vol] 0.2 10*3/uL 0.0-0.45 [facility] Eosinophils/100 WBC Auto (Bl d)Ordered By: Jermaine Jackson on 05-11-2022 Eosinophils/100 WBC (Bld) 4.2 % . [facility] Erythrocyte distribution wid th Auto (RBC) [Ratio]Ordered By: Jermaine Jackson on 05-11-2022 Erythrocyte distribution width (RBC) [Ratio] 13.2 % 12.0-14.8 [facility] Estimated glomerular filtrat ion rate (GFR) non- AmericanOrdered By: Jermaine Jackson on 05-11-2022 GFR/1.73 sq M.predicted among non-blacks MDRD (S/P/Bld) [Vol rate/Area] > 60 mL/Min [facility] Hematocrit Auto (Bld) [Volum e fraction]Ordered By: Jermaine Jackson on 05-11-2022 Hematocrit (Bld) [Volume fraction] 41.3 % 38.8-50.0 [facility] Laboratory - Chemistry and C hemistry - challengeon 05-11-2022 Cholesterol [Mass/Vol] 118\S\118 below low threshold 140-[address] [address] DO Work Phone: Comment on above: Chol less than 200 m g/dl low risk Chol 201-239 mg/dl borderline risk Chol 240 mg/dl and greater high risk Cholesterol in LDL [Mass/Vol] 45\S\45 Normal 0-100 [address] [address] DO Work Phone: Comment on above: LDL ATP III CLASSIFI CATION LDL less than 100 mg/dL Optimal LDL 100-129 mg/dL Near or above optimal LDL 130-159 mg/dL Borderline high LDL 160-189 mg/dL High LDL greater than 189 mg/dL Very high Laboratory - CoagulationOrde red By: Jermaine Jackson on 05-11-2022 PT Coag (PPP) [Time] 11.2 s 9.0-12.9 [facility] - Hematology and Cell countsOrdered By: Jermaine Jackson on 05-11-2022 Nucleated RBC/100 WBC (Bld) [Ratio] 0.1 % 0-0.5 [facility] - Microbiology an d Antimicrobial susceptibilityon 05-11-2022 SARS-CoV-2 (COVID-19) RNA DONTE+probe Ql (Unsp spec) [address] [place] [address] DO Work Phone: Lymphocytes Auto (Bld) [#/Vo l]Ordered By: Jermaine Jackson on 05-11-2022 Lymphocytes (Bld) [#/Vol] 1.4 10*3/uL 1.00-4.8 [facility] Lymphocytes/100 WBC Auto (Bl d)Ordered By: Jermaine Jackson on 05-11-2022 Lymphocytes/100 WBC (Bld) 24.2 % . [facility] MCH Auto (RBC) [Entitic mass ]Ordered By: Jermaine Jackson on 05-11-2022 MCH (RBC) [Entitic mass] 30.5 pg 27.5-35.2 [facility] MCHC Auto (RBC) [Mass/Vol]Or dered By: Jermaine Jackson on 05-11-2022 MCHC (RBC) [Mass/Vol] 34.1 g/dL 32.5-35.6 [facility] MCV Auto (RBC) [Entitic vol] Ordered By: Jermaine Jackson on 05-11-2022 MCV (RBC) [Entitic vol] 89.6 fL 83.5-101 [facility] Monocytes Auto (Bld) [#/Vol] Ordered By: Jermaine Jackson on 05-11-2022 Monocytes (Bld) [#/Vol] 0.7 10*3/uL 0.0-0.8 [facility] Monocytes/100 WBC Auto (Bld) Ordered By: Jermaine Jackson on 05-11-2022 Monocytes/100 WBC (Bld) 12.3 % . [facility] Neutrophils Auto (Bld) [#/Vo l]Ordered By: Jermaine Jackson on 05-11-2022 Neutrophils (Bld) [#/Vol] 3.3 10*3/uL 1.8-7.7 [facility] Neutrophils/100 WBC Auto (Bl d)Ordered By: Jermaine Jackson on 05-11-2022 Neutrophils/100 WBC (Bld) 58.7 % . [facility] No Panel InformationOrdered By: Jermaine Jackson on 05-11-2022 Estimated GFR () > 60 mL/Min [facility] Comment on above: GFR estimated refere nce range: According to KDOQI guidelines, <60 ml/min/1.73m2 is sufficient to diagnose a patient with chronic kidney disease. Pharmacy Creatinine Clearance (Chem N/A [facility] SARS Antigen (LFIA) [facility] SARS Antigen (LFIA) [facility] No Panel Informationon 05-11 58.7\S\58.7 Normal . [facility] 250 DO Work Phone: 8.0\S\8.0 Normal 6.6-10.1 [facility] 250 DO Work Phone: 240\S\240 Normal 150-450 [facility] 250 DO Work Phone: 13.2\S\13.2 Normal 12.0-14.8 [facility] 250 DO Work Phone: 34.1\S\34.1 Normal 32.5-35.6 [facility] 250 DO Work Phone: 30.5\S\30.5 Normal 27.5-35.2 [facility] 250 DO Work Phone: 3.3\S\3.3 Normal 1.8-7.7 [facility] 250 DO Work Phone: 0.1\S\0.1 Normal 0-0.5 [facility] 250 DO Work Phone: 0.6\S\0.6 Normal . [facility] 250 DO Work Phone: 4.2\S\4.2 Normal . [facility] 250 DO Work Phone: 12.3\S\12.3 Normal . [facility] 250 DO Work Phone: 24.2\S\24.2 Normal . [facility] 250 DO Work Phone: 0.0\S\0.0 Normal 0.0-0.2 [facility] 250 DO Work Phone: Comment on above: PERFORMED BY:[facility] [place] [place] [id number] MEDICAL DIRECTORSUNNY RANDALL M.D. 0.2\S\0.2 Normal 0.0-0.45 [facility] 250 DO Work Phone: 0.7\S\0.7 Normal 0.0-0.8 [facility] 250 DO Work Phone: 1.4\S\1.4 Normal 1.00-4.8 [facility] 250 DO Work Phone: 89.6\S\89.6 Normal 83.5-101 [facility] 250 DO Work Phone: 41.3\S\41.3 Normal 38.8-50.0 [facility] 250 DO Work Phone: 14.1\S\14.1 Normal 13.0-17.0 [facility] 250 DO Work Phone: 4.61\S\4.61 Normal 3.90-5.60 [facility] 250 DO Work Phone: 5.7\S\5.7 Normal 4.1-10.5 [facility] 250 DO Work Phone: 30.0\S\30.0 Normal 25.1-36.5 [facility] 250 DO Work Phone: Comment on above: PERFORMED BY:[facility] [place], [place] [id number] MEDICAL DIRECTORSUNNY RANDALL M.D. 1.0\S\1.0 Normal [facility] 250 DO Work Phone: Comment on above: INR Therapeutic Rang e A) Pre- and Peroperative OAT started two weeks before surgery. NOT HIP SURGERY: 1.5 - 2.5 HIP SURGERY: 2 - 3 B) Primary and secondary prevention of venous THROMBOSIS: 2 - 3 C) Active venous thrombosis, pulmonary embolism and prevention of recurrent venous thrombosis: 2 - 3 D) Prevention of arterial thromboembolism including patients with mechanical heart valves: 3 - 4.5 11.2\S\11.2 Normal 9.0-12.9 [facility] 250 DO Work Phone: 27.8\S\27.8 Normal 22.0-30.0 [facility] 250 DO Work Phone: 102\S\102 Normal 95-114 [facility] 250 DO Work Phone: 5.0\S\5.0 Normal 3.5-5.1 [facility] 250 DO Work Phone: 136\S\136 Normal 136-146 [facility] 250 DO Work Phone: 7\S\7 below low threshold 9-23 [facility] 250 DO Work Phone: > 60 Normal [facility] 250 DO Work Phone: Comment on above: GFR estimated refere nce range: According to KDOQI guidelines, <60 ml/min/1.73m2 is sufficient to diagnose a patient with chronic kidney disease. 0.96\S\0.96 Normal 0.64-1.27 [facility] 250 DO Work Phone: 3.8\S\3.8 Normal <5.0 [facility] 250 DO Work Phone: Comment on above: PERFORMED BY:[place] [address] [address] [place], [place] [id number] MEDICAL DIRECTORSUNNY RANDALL M.D. 41\S\41 Normal [facility] 250 DO Work Phone: 208\S\208 above high threshold 35-149 [facility] 250 DO Work Phone: Comment on above: TRIG ATP III CLASSIF ICATION TRIG less than 150 mg/dL Normal TRIG 150-199 mg/dL Borderline high TRIG 200-500 mg/dL High TRIG greater than 500 mg/dL Very high Standard traceable to the Center for Disease Conrtrol and Prevention (CDC) test method. 31\S\31 Normal 29-71 [facility] [employer] 250 DO Work Phone: Comment on above: HDL CHOL ATP-III CLA SSIFICATION Cardiovascular Risk HDL > or equal to 60 mg/dL LOW HDL < 40 mg/dL HIGH Negative Normal Negative [facility] Work Phone: Comment on above: This is a duplicate Aishwarya SARS Antigen (GENEVA) result to be used for statistical tracking purpose only.PERFORMED BY:[facility] [place], [place] [id number] MEDICAL DIRECTORSUNNY RANDALL M.D. Platelet mean volume Auto (B ld) [Entitic vol]Ordered By: Jermaine Jackson on 05-11-2022 Platelet mean volume (Bld) [Entitic vol] 8.0 fL 6.6-10.1 [facility] Platelet poor plasma interna tional normalized ratio (INR) by coagulation assay (relatOrdered By: Jermaine Jackson on 05-11-2022 INR Coag (PPP) [Relative time] 1.0 {INR} [facility] Comment on above: INR Therapeutic Rang e A) Pre- and Peroperative OAT started two weeks before surgery. NOT HIP SURGERY: 1.5 - 2.5 HIP SURGERY: 2 - 3 B) Primary and secondary prevention of venous THROMBOSIS: 2 - 3 C) Active venous thrombosis, pulmonary embolism and prevention of recurrent venous thrombosis: 2 - 3 D) Prevention of arterial thromboembolism including patients with mechanical heart valves: 3 - 4.5 INR Therapeutic Rang e A) Pre- and Peroperative OAT started two weeks before surgery. NOT HIP SURGERY: 1.5 - 2.5 HIP SURGERY: 2 - 3B) Primary and secondary prevention of venous THROMBOSIS: 2 - 3C) Active venous thrombosis, pulmonary embolismand prevention of recurrent venous thrombosis: 2 - 3D) Prevention of arterial thromboembolismincluding patients with mechanical heart valves: 3 - 4.5 Platelets Auto (Bld) [#/Vol] Ordered By: Jermaine Jackson on 05-11-2022 Platelets (Bld) [#/Vol] 240 10*3/uL 150-450 [facility] RBC Auto (Bld) [#/Vol]Ordere d By: Jermaine Jackson on 05-11-2022 RBC (Bld) [#/Vol] 4.61 10*6/uL 3.90-5.60 [facility] Serum or plasma chloride micki surement (moles/volume)Ordered By: Jermaine Jackson on 05-11-2022 Chloride [Moles/Vol] 102 mmol/L 95-114 [facility] Serum or plasma high density lipoprotein (HDL) cholesterol measurementOrdered By: Jermaine Jackson on 05-11-2022 Cholesterol in HDL [Mass/Vol] 31 mg/dL 29-71 [facility] Comment on above: HDL CHOL ATP-III CLA SSIFICATION Cardiovascular Risk HDL > or equal to 60 mg/dL LOW HDL < 40 mg/dL HIGH HDL CHOL ATP-III CLA SSIFICATION Cardiovascular RiskHDL > or equal to 60 mg/dL LOWHDL < 40 mg/dL HIGH Serum or plasma potassium me asurement (moles/volume)Ordered By: Jermaine Jackson on 05-11-2022 Potassium [Moles/Vol] 5.0 mmol/L 3.5-5.1 [facility] Serum or plasma sodium measu rement (moles/volume)Ordered By: Jermaine Jackson on 05-11-2022 Sodium [Moles/Vol] 136 mmol/L 136-146 [facility] Serum or plasma total carbon dioxide measurement (moles/volume)Ordered By: Jermaine Jackson on 05-11-2022 CO2 [Moles/Vol] 27.8 mmol/L 22.0-30.0 [facility] Serum or plasma total choles terol/high density lipoprotein (HDL) cholesterol mass ratOrdered By: Jermaine Jackson on 05-11-2022 Cholesterol.total/Cho lesterol in HDL [Mass ratio] 3.8 {ratio} <5.0 [facility] Serum or plasma urea nitroge n measurement (mass/volume)Ordered By: Jermaine Jackson on 05-11-2022 Urea nitrogen [Mass/Vol] 7 mg/dL 9- [facility] Triglyceride [Mass/volume] i n Serum or PlasmaOrdered By: Jermaine Jackson on 05-11-2022 Triglyceride [Mass/Vol] 208 mg/dL 35-149 [facility] Comment on above: TRIG ATP III CLASSIF ICATION TRIG less than 150 mg/dL Normal TRIG 150-199 mg/dL Borderline high TRIG 200-500 mg/dL High TRIG greater than 500 mg/dL Very high Standard traceable to the Center for Disease Conrtrol and Prevention (CDC) test method. TRIG ATP III CLASSIF ICATIONTRIG less than 150 mg/dL NormalTRIG 150-199 mg/dL Borderline highTRIG 200-500 mg/dL High TRIG greater than 500 mg/dL Very highStandard traceable to the Center for Disease Conrtrol and Prevention (CDC) test method. [facility] CARDIAC STRESS/REST INJE CTIONon 04-03-2022 [facility] CARDIAC STRESS/REST INJECTION Patient Name: ZAID MELLO STUDY: MYOCARDIAL PERFUSION STRESS TEST WITH LEXISCAN Performing facility: [facility], [address] [place] [address], [address] Provider: NONE PCP: Dr. Tayler Villasenor Supervising provider: Reji Adame DO, [facility] INDICATION: SOB; Pre-operative risk assessment for Lung scheduled at [place] on TBD. HISTORY: Gender: M; Age: 61 y/o ; Height: 175.26 cm; Weight: 172.1996075 kg. CAD; High Cholesterol; Previous OK; SOB; Lung mass Denies smoking. CABG on 2020. Cardiac catheterization on 2020. PTCA on 2020. COMPARISON: No comparison. ACCESSION NUMBER(S): [id number]; [id number]; [id number] ORDERING CLINICIAN: WALT BARRAGAN TECHNIQUE: ONE DAY protocol. Stress injection: Date:04-03-22, 35.4 mCi of Myoview IV 20 seconds after rapid injection of Lexiscan. Rest injection: Date: 04-03-22, 10.8 mCi of Myoview IV at rest. The patient had a rapid injection of 0.4 mg of Lexiscan IV over 10 seconds. Imaging was performed by gated tomographic technique. Reason for Lexiscan: SOB STRESS TEST DATA: Resting heart rate was 57 BPM. Resting blood pressure was 138/82 mmHg. Peak blood pressure was 146/78 mmHg. Peak heart rate was 97 BPM. TEST TERMINATED DUE TO: Protocol completed FINDINGS: STRESS TEST RESULTS: Resting electrocardiogram revealed normal sinus rhythm. There were no significant ischemic ECG changes or dysrhythmias. The patient did not have chest pains/symptoms during procedure. There was a normal recovery phase. IMAGING RESULTS: Image quality was good. Rest and stress tomographic images were reviewed and revealed abnormal perfusion. There was evidence of perfusion abnormality with small area of moderate which is reversible on rest images consistent with inferior wall ischemia. There was no evidence of myocardial infarction . There was not left ventricular dilatation with stress. Overall left ventricular systolic function appeared to be normal. LVEF was 58%. TID is 1.19 and is normal. There were no evidence of attenuation artifact. IMPRESSION: Abnormal Lexiscan Myoview cardiac perfusion stress test. Small infero basilar myocardial ischemia by perfusion imaging. No myocardial infarction by perfusion imaging. Normal left ventricular systolic function. Left ventricular ejection fraction 50 %. No previous study available for comparison. Electronically signed by: JUDY KABA MD Normal [facility] No Panel Informationon 04-03 Normal -[address] Work Phone: Office Visit (Cardiology)on 02-21-2022 Follow-up visit Diagnoses/Problems Assessed CAD (coronary artery disease) (414.00) (I25.10) S/P CABG (coronary artery bypass graft) (V45.81) (Z95.1) Status post insertion of drug eluting coronary artery stent (V45.82) (Z95.5) STEMI (ST elevation myocardial infarction) (410.90) (I21.3) Hyperlipidemia (272.4) (E78.5) Former smoker (V15.82) (Z87.891) QUIT 15 YEARS AGO 2005- SMOKED ABOUT 2 PPD Class 1 obesity with body mass index (BMI) of 32.0 to 32.9 in adult (278.00,V85.32) (E66.9,Z68.32) Lung mass (786.6) (R91.8) Orders CAD (coronary artery disease) Renew: Aspirin EC 81 MG Oral Tablet Delayed Release; TAKE 1 TABLET DAILY CAD (coronary artery disease), Hyperlipidemia Lipid Panel; Status:Active - Retrospective Authorization; Requested for:21Feb2022; Class 1 obesity with body mass index (BMI) of 32.0 to 32.9 in adult Healthy Weight Tips; Status:Complete - Retrospective Authorization; Done: 21Feb2022 Some eating tips that can help you lose weight.; Status:Complete - Retrospective Authorization; Done: 21Feb2022 Hyperlipidemia Renew: Atorvastatin Calcium 80 MG Oral Tablet; TAKE 1 TABLET AT BEDTIME SocHx: Former smoker Tobacco Use Screening; Status:Complete; Done: 21Feb2022 Patient Instructions By signing my name below, I, Margie Aguilera LPN,Marthaibalaina, attest that this documentation has been prepared under the direction and in the presence of Dr. Walt Jackson, . Please bring all medicines, vitamins, and herbal supplements with you when you come to the office. Prescriptions will not be filled unless you are compliant with your follow up appointments or have a follow up appointment scheduled as per instruction of your physician. Refills should be requested at the time of your visit. Patient is able to stop Brilinta on 04/28/2022. Follow up in [ 8 ] months Chief Complaint OVERDUE NEEDS RX. Patient is a 61-year-old gentleman returns for follow-up. He is doing well he has no cardiovascular complaints. He does have exertional dyspnea and back discomfort when lying down this is secondary to an enlarging pulmonary mass details of which are been reviewed with patient and EMR. 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 He has had previous CABG with subsequent inferior OK in March 2021 with primary revascularization of the vein graft to the RCA with drug-eluting stent with preserved left ventricular function. He He is currently working walking as he states approximately 8 miles a day without any issues. We reviewed his coronary anatomy and intervention and cath report he remains on appropriate guideline directed medical therapies Recommendations, he can discontinue his Brilinta on April 28, continue all other medications, will follow-up in 8 months otherwise if in fact he needs partial pneumonectomy in the future from a cardiovascular standpoint we could potentially clear him for this this year. Surgical History Problems History of Cardiac catheterization with stent placement History of Cataract surgery History of Coronary artery bypass graft History of Lung biopsy Current Meds Medication NameInstruction Aspirin EC 81 MG Oral Tablet Delayed ReleaseTAKE 1 TABLET DAILY. Atorvastatin Calcium 80 MG Oral TabletTAKE 1 TABLET AT BEDTIME. Brilinta 90 MG Oral TabletTAKE 1 TABLET TWICE DAILY. Metoprolol Tartrate 25 MG Oral TabletTAKE 1 TABLET TWICE DAILY. Tamsulosin HCl - 0.4 MG Oral Capsule1 TAB DAILY Allergies Medication No Known Drug Allergies Recorded By: Deanna Bronson; 02/10/2022 3:04:08 PM Social History Problems Caffeine use (V49.89) (Z78.9) Former smoker (V15.82) (Z87.891) QUIT 15 YEARS AGO 2005- SMOKED ABOUT 2 PPD No alcohol use No illicit drug use Review of Systems Constitutional: not feeling tired. Cardiovascular: no intermittent leg claudication and as noted in HPI. Respiratory: no cough and no shortness of breath. Gastrointestinal: no change in bowel habits and no blood in stools. Integumentary: no skin rashes. Neurological: no seizures and no frequent falls. All other systems have been reviewed and are negative for complaint. Vitals Vital Signs Recorded: 21Feb2022 11:13AM Heart Rate62, L Radial Aarouqge764, LUE, Sitting Tyjjotffi54, LUE, Sitting Height5 ft 9 in Qccdsg188 lb BMI Nwfqdlxtzf92.93 kg/m2 BSA Calculated2.16 Tobacco Useb) No PHQ-2 #1. Over the last 2 weeks have you felt down, depressed or hopeless? (If yes, answer PHQ-9 below)No PHQ-2 #2. Over the last 2 weeks have you felt little interest or pleasure in doing things? (If yes, answer PHQ-9 below)No Physical Exam Constitutional: alert and in no acute distress. Neck: neck is supple, symmetric, trachea midline, no masses and no thyromegaly . Pulmonary: no increased work of breathing or signs of respiratory distress and lungs clear to auscultation. Cardiovascular: carotid pulses 2+ bilaterally with no bruit , JVP was normal, no thrills , regular rhythm, normal S1 and S2, no murmurs , pedal pulses (more content not included)... Normal Iddiction Tobacco Screening.on 022 Adult depression screening assessment No [facility] 250 DO Work Phone: Tobacco use status CPHS b) No [facility] 250 DO Work Phone: Laboratory - CoagulationOrde red By: Demetrio Floyd on 11-28-2021 PT Coag (PPP) [Time] 11.3 s 9.0-12.9 [facility] Platelet poor plasma interna tional normalized ratio (INR) by coagulation assay (relatOrdered By: Demetrio Floyd on 11-28-2021 INR Coag (PPP) [Relative time] 1.0 {INR} [facility] Comment on above: INR Therapeutic Rang e A) Pre- and Peroperative OAT started two weeks before surgery. NOT HIP SURGERY: 1.5 - 2.5 HIP SURGERY: 2 - 3B) Primary and secondary prevention of venous THROMBOSIS: 2 - 3C) Active venous thrombosis, pulmonary embolismand prevention of recurrent venous thrombosis: 2 - 3D) Prevention of arterial thromboembolismincluding patients with mechanical heart valves: 3 - 4.5 Platelets Auto (Bld) [#/Vol] Ordered By: Demetrio Floyd on 11-28-2021 Platelets (Bld) [#/Vol] 207 10*3/uL 150-450 [facility] Glucose Glucometer (BldC) [M ass/Vol]Ordered By: Mickie Das on 11-21-2021 Glucose [Mass/Vol] 113 mg/dL [facility] Comment on above: Random Glucose Refer ence Range is dependent on time and content of last meal. Glucose of more than 200 mg/dL in a nonstressed, ambulatory subject supports the diagnosis of Diabetes Mellitus. No Panel InformationOrdered By: Mickie Das on 11-21-2021 Bedside Glucose Comment Glu2: cleaned meter [facility] Vital Signs Date Time Vital Sign Value Performing Clinician Carlton fofana 10-24-2023 10:30-0500 Body height 176.5 cm Pmh 2 [facility] 10-24-2023 10:30-0500 Body mass index (BMI) [Ratio] 33.19 kg/m2 Pmh 2 [facility] 10-24-2023 10:30-0500 Body weight 103.42 kg Pmh 2 [facility] 08-09-2023 08:30-0400 Body height 181.61 cm Mickie Das Other [employer] Other 08-09-2023 08:30-0400 Body mass index (BMI) [Ratio] 30.67 kg/m2 Mickie Das Other [employer] Other 08-09-2023 08:30-0400 Body temperature 97.3 [degF] Mickie Das Other [employer] Other 08-09-2023 08:30-0400 Body weight 101.15 kg Mickie Das Other [employer] Other 08-09-2023 08:30-0400 Diastolic blood pressure 64 mm[Hg] Mickie Das Other [employer] Other 08-09-2023 08:30-0400 Respiratory rate 20 /min Mickie Das Other [employer] Other 08-09-2023 08:30-0400 SaO2% (BldA) [Mass fraction] 97 % Mickie Das Other [employer] Other 08-09-2023 08:30-0400 Systolic blood pressure 120 mm[Hg] Mickie Das Other [employer] Other 10-04-2022 09:52-0500 Body height 175.26 cm Shaikh Lexi Work Phone: [facility] [employer] 250 DO Work Phone: 10-04-2022 09:52-0500 Body mass index (BMI) [Ratio] 32.86 kg/m2 Shaikh Lexi Work Phone: [employer] [facility] [employer] [facility] 250 DO Work Phone: 10-04-2022 09:52-0500 Body surface area Derived from formula 2.16 m2 Shaikh Alexisd Work Phone: [facility] 250 DO Work Phone: 10-04-2022 09:52-0500 Body weight 100.93 kg Shaikh Veliawad Work Phone: [facility] 250 DO Work Phone: 10-04-2022 09:52-0500 Diastolic blood pressure 76 mm[Hg] Shaikh Alexisd Work Phone: [facility] 250 DO Work Phone: 10-04-2022 09:52-0500 Heart rate 66 /min Shaikh Veliawad Work Phone: [facility] 250 DO Work Phone: 10-04-2022 09:52-0500 Systolic blood pressure 132 mm[Hg] Shaikh Alexisd Work Phone: [facility] 250 DO Work Phone: 07-28-2022 17:24-0400 Diastolic blood pressure 72 mm[Hg] MD Consuelo Villasenor Work Phone: [facility] 07-28-2022 17:24-0400 Heart rate 66 /min MD Consuelo Villasenor Work Phone: [facility] 07-28-2022 17:24-0400 Respiratory rate 18 /min MD Consuelo Villasenor Work Phone: [facility] 07-28-2022 17:24-0400 SaO2% (BldA) [Mass fraction] 96 % MD Consuelo Villasenor Work Phone: [facility] 07-28-2022 17:24-0400 Systolic blood pressure 112 mm[Hg] MD Consuelo Villasenor Work Phone: [facility] 07-28-2022 16:18-0400 Body temperature 97.3 [degF] MD Consuelo Villasenor Work Phone: [facility] 07-28-2022 14:14-0400 Body height 175.26 cm MD Consuelo Villasenor Work Phone: [facility] 07-28-2022 05:45-0400 Body weight 99.8 kg MD Consuelo Villasenor Work Phone: [facility] 05-12-2022 14:03-0400 Diastolic blood pressure 75 mm[Hg] MD Consuelo Villasenor Work Phone: [facility] 05-12-2022 14:03-0400 Heart rate 55 /min MD Consuelo Villasenor Work Phone: [facility] 05-12-2022 14:03-0400 Respiratory rate 16 /min MD Consuelo Villasenor Work Phone: [facility] 05-12-2022 14:03-0400 SaO2% (BldA) [Mass fraction] 97 % MD Consuelo Villasenor Work Phone: [facility] 05-12-2022 14:03-0400 Systolic blood pressure 119 mm[Hg] MD Consuelo Villasenor Work Phone: [facility] 05-11-2022 07:06-0400 Body height 177.8 cm MD Consuelo Villasenor Work Phone: [facility] 05-11-2022 07:06-0400 Body mass index (BMI) [Ratio] 31.9 kg/m2 MD Consuelo Villasenor Work Phone: [facility] 05-11-2022 07:06-0400 Body weight 101 kg MD Consuelo Villasenor Work Phone: [facility] 05-11-2022 00:00-0400 45 1 Consuelo Salgadoerhorn Work Phone: [facility] 250 DO Work Phone: Comment on above: FSLDL 04-03-2022 12:00-0400 58 1 Consuelo Salgadoerhorn Work Phone: [facility] [address] [place] Work Phone: Comment on above: [id number] 03-08-2022 16:15-0400 Body height 181.61 cm Paulinojuan diego Das Other [employer] Other 03-08-2022 16:15-0400 Body mass index (BMI) [Ratio] 30.25 kg/m2 Mickie Hungban Other [employer] Other 03-08-2022 16:15-0400 Body temperature 97 [degF] Mickie Hungban Other [employer] Other 03-08-2022 16:15-0400 Body weight 99.79 kg Paulinojuan diego Hungban Other [employer] Other 03-08-2022 16:15-0400 Diastolic blood pressure 74 mm[Hg] Mickie Hungban Other [employer] Other 03-08-2022 16:15-0400 Respiratory rate 20 /min Mickie Hungban Other [employer] Other 03-08-2022 16:15-0400 SaO2% (BldA) [Mass fraction] 96 % Mickie Hungban Other [employer] Other 03-08-2022 16:15-0400 Systolic blood pressure 130 mm[Hg] Mickie Hungban Other [employer] Other 02-21-2022 11:13-0400 Body height 175.26 cm No PCP None [facility] 250 DO Work Phone: 02-21-2022 11:13-0400 Body mass index (BMI) [Ratio] 32.93 kg/m2 No PCP None [facility] 250 DO Work Phone: 02-21-2022 11:13-0400 Body surface area Derived from formula 2.16 m2 No PCP None [facility] 250 DO Work Phone: 02-21-2022 11:13-0400 Body weight 101.15 kg No PCP None [facility] 250 DO Work Phone: 02-21-2022 11:13-0400 Diastolic blood pressure 74 mm[Hg] No PCP None [facility] 250 DO Work Phone: 02-21-2022 11:13-0400 Heart rate 62 /min No PCP None [facility] 250 DO Work Phone: 02-21-2022 11:13-0400 Systolic blood pressure 118 mm[Hg] No PCP None [facility] 250 DO Work Phone: 11-30-2021 14:15-0500 Body height 181.61 cm Mickie Das Other [employer] Other 11-30-2021 14:15-0500 Body mass index (BMI) [Ratio] 30.53 kg/m2 Mickie Das Other [employer] Other 11-30-2021 14:15-0500 Body temperature 97 [degF] Mickie Das Other [employer] Other 11-30-2021 14:15-0500 Body weight 100.7 kg Mickie Das Other [employer] Other 11-30-2021 14:15-0500 Diastolic blood pressure 78 mm[Hg] Mickie Hungban Other [employer] Other 11-30-2021 14:15-0500 Respiratory rate 20 /min Mickie Hungban Other [employer] Other 11-30-2021 14:15-0500 SaO2% (BldA) [Mass fraction] 99 % Mickie Das Other [employer] Other 11-30-2021 14:15-0500 Systolic blood pressure 140 mm[Hg] Mickie Das Other [place] [employer] Other 11-28-2021 13:00-0500 Heart rate 64 /min MD Consuelo Villasenor Work Phone: [facility] 11-28-2021 13:00-0500 Respiratory rate 16 /min MD Consuelo Villasenor Work Phone: [facility] 11-28-2021 13:00-0500 SaO2% (BldA) [Mass fraction] 95 % MD Consuelo Villasenor Work Phone: [facility] 11-28-2021 11:40-0500 Diastolic blood pressure 75 mm[Hg] MD Consuelo Villasenor Work Phone: [facility] 11-28-2021 11:40-0500 Systolic blood pressure 122 mm[Hg] MD Consuelo Villasenor Work Phone: [facility] 11-28-2021 09:39-0500 Body height 175.26 cm MD Consuelo Villasenor Work Phone: [facility] 11-28-2021 09:39-0500 Body mass index (BMI) [Ratio] 32.6 kg/m2 MD Consuelo Villasenor Work Phone: [facility] 11-28-2021 09:39-0500 Body weight 100.24 kg MD Consuelo Villasenor Work Phone: [facility] 11-15-2021 11:30-0500 Body height 181.61 cm Mickie Das Other [employer] Other 11-15-2021 11:30-0500 Body mass index (BMI) [Ratio] 30.39 kg/m2 Mickie Hungban Other [employer] Other 11-15-2021 11:30-0500 Body temperature 97.9 [degF] Mickie Hungban Other [employer] Other 11-15-2021 11:30-0500 Body weight 100.25 kg Mickie Hungban Other [employer] Other 11-15-2021 11:30-0500 Diastolic blood pressure 76 mm[Hg] Mickie Hungban Other [employer] Other 11-15-2021 11:30-0500 Respiratory rate 20 /min Mickie Hungban Other [employer] Other 11-15-2021 11:30-0500 SaO2% (BldA) [Mass fraction] 96 % Mickie Hungban Other [employer] Other 11-15-2021 11:30-0500 Systolic blood pressure 134 mm[Hg] Mickie Das Other [employer] Other Encounters Encounter Date Encounter Type Care Provider Facility Start: 11-05-2023 Telephone encounter Reji Romero MD Work Phone: [facility] Start: 11-05-2023 End: 11-05-2023 Evaluation and management of inpatient GISSELLE CARVER [facility] Start: 11-05-2023 End: 11-05-2023 Evaluation and management of inpatient REJI ROMERO [facility] Start: 10-30-2023 Orders Only Aziza PERAZA Work Phone: [facility] Start: 10-24-2023 End: 10-25-2023 ambulatory ISAÍAS VANCE [facility] Start: 10-24-2023 Encounter for other preprocedural examination HATFIELDVITALIY HERNANDEZNHKristy [facility] Start: 10-24-2023 End: 10-24-2023 Patient encounter procedure [facility] Pre-Admission Testing [address] [facility] - Pre Admit Comment on above: Preop examination (P rimary Dx); Hypertension, unspecified type; Coronary artery disease, unspecified vessel or lesion type, unspecified whether angina present, unspecified whether little shell tribe or transplanted heart; Chronic obstructive pulmonary disease, unspecified COPD type ([facility]) Start: 10-24-2023 End: 10-24-2023 Preprocedural examination done Pm 2 [facility] Start: 10-01-2023 End: 10-02-2023 ambulatory Mariah Whiting MD Facility:[facility] Start: 09-05-2023 ambulatory Facility:[facility] Start: 08-09-2023 End: 08-09-2023 ambulatory Mickie Das Other [employer] Other Start: 08-09-2023 Office outpatient vi sit 25 minutes Mickie Das [facility] Start: 08-02-2023 End: 08-02-2023 ambulatory Shaikh Lexi Facility:[facility] Start: 08-02-2023 End: 08-02-2023 ambulatory MD Shaikh Elliott Work Phone: [facility] Work Phone: Start: 08-02-2023 End: 08-02-2023 Patient encounter procedure MD Shaikh Elliott Work Phone: [facility]-MRI Main [place] Work Phone: Start: 06-26-2023 Rx Renewal Hatfield Veliawad Work Phone: [facility] 250 DO Work Phone: Start: 05-25-2023 Rx Renewal Hatfield Fawwad Work Phone: [facility] 250 DO Work Phone: Start: 05-02-2023 Rx Renewal Hatfield Veliawad Work Phone: [facility] 250 DO Work Phone: Start: 04-18-2023 Telephone encounter Shaikh Velia nicoled Work Phone: [facility] 250 DO Work Phone: Start: 12-08-2022 End: 12-08-2022 ambulatory Mickie Das Other [employer] Other Start: 12-08-2022 Telephone encounter Mickie Das [facility] Start: 11-20-2022 Rx Renewal Hatfield Veliawad Work Phone: [facility] 250 DO Work Phone: Start: 10-04-[address] Walt Jackson Facility: Start: 10-04-2022 Office outpatient vi sit 25 minutes Hatfield Veliawad Work Phone: [facility] 250 DO Work Phone: Start: 08-04-[address] Walt Jackson Facility:[id number] Start: 07-28-2022 ambulatory Consuelo Villasenor Facility:[id number] Start: 07-27-[address] Walt Jackson Facility:[id number] Start: 07-26-2022 ambulatory Consuelo Villasenor Facility:[id number] Start: 07-26-2022 End: 07-28-2022 Evaluation and management of inpatient MD Consuelo Villasenor Work Phone: [facility] [place] [facility] Start: 07-26-2022 End: 07-28-2022 observation encounter MD Consuelo Villasenor Work Phone: [facility] Work Phone: Start: 07-26-2022 End: 07-26-2022 ambulatory SABINO COLES Facility:H1 Start: 06-28-2022 Telephone encounter Consuelo ortega Work Phone: [facility] 250 DO Work Phone: Start: 06-09-2022 AUDIT Consuelo Salgado erhorn Work Phone: [facility] 250 DO Work Phone: Start: 05-30-2022 End: 05-30-[address] ADRIANA NAGY Facility:H1 Start: 05-12-[address] Walt Jackson Facility:[id number] Start: 05-12-2022 [facility], Provider: Walt Jackson, Status: Pen, Time: 9:00 AM Consuelo Villasenor Work Phone: [facility] 250 DO Work Phone: Start: 05-12-2022 End: 05-12-2022 Admission to same day surgery center MD Consuelo Villasenor Work Phone: [facility]-Digital Media Representative Start: 05-11-2022 Chart Update Consuelo Salgado erhornanette Work Phone: [facility] 250 DO Work Phone: Start: 05-11-2022 End: 05-11-2022 Patient encounter procedure MD Consuelo Villasenor Work Phone: [facility] Testing Start: 05-10-2022 Telephone encounter Consuelo ortega Work Phone: [facility] 250 DO Work Phone: Start: 04-03-2022 Patient encounter procedure Consuelo Villasenor Work Phone: [facility] 250A [place] Work Phone: Start: 03-08-2022 End: 03-08-2022 ambulatory Kamal Chaban Other [employer] Other Start: 03-08-2022 Office outpatient vi sit 25 minutes Kamal Chaban [facility] Start: 02-21-2022 Office outpatient vi sit 15 minutes No PCP None [facility] 250 DO Work Phone: Start: 02-21-[address] Wlat marie Manuel Facility: Start: 02-15-2022 End: 02-15-2022 Patient encounter procedure MD Consuelo Villasenor Work Phone: [facility]-CT Scan Main [place] Start: 02-06-2022 Rx Renewal Referring Prov ider Unknown [facility] 250 DO Work Phone: Start: 01-25-2022 End: 01-25-2022 ambulatory Kamal Chaban Other [employer] Other Start: 01-25-2022 Telephone encounter Kamal Chaban [facility] Start: 01-04-2022 End: 01-04-2022 Patient encounter procedure MD Consuelo Villasenor Work Phone: [facility]-Respiratory Therapy Start: 12-26-2021 End: 12-26-2021 ambulatory Kamal Chaban Other [employer] Other Start: 12-26-2021 Telephone encounter Kamal Chaban [facility] Start: 12-05-2021 End: 12-05-2021 Patient encounter procedure MD Consuelo Villasenor Work Phone: [facility]-XRay Main [place] Start: 11-30-2021 End: 11-30-2021 ambulatory Kamal Chaban Other [employer] Other Start: 11-30-2021 Office outpatient vi sit 25 minutes Kamal Chaban [facility] Start: 11-29-2021 End: 11-29-2021 Patient encounter procedure MD Consuelo Villasenor Work Phone: [facility]-XRay [facility] Start: 11-28-2021 End: 11-28-2021 Admission to same day surgery center MD Consuelo Villasenor Work Phone: [facility]-CT Scan Main [place] Start: 11-21-2021 End: 11-21-2021 Patient encounter procedure MD Consuelo Villasenor Work Phone: [facility]-Pet Scan Start: 11-15-2021 End: 11-15-2021 ambulatory Kamal Chaban Other [employer] Other Start: 11-15-2021 Office outpatient ne w 45 minutes Kamal Chaban [facility] Patient encounter status Shaikh Lexi Work Phone: [facility] 250 DO Work Phone: Procedures Date Procedure Procedure Detail Performing Clinician Start: 08-02-2023 XR pre/post mri xray MD Shaikh Elliott Work Phone: Start: 08-02-2023 MR lumbar spine wo con MD Shaikh Elliott Work Phone: Start: 07-28-2022 CL Coronary Angio w/grafts MD Consuelo ansari Work Phone: Start: 07-28-2022 CL Ivus Initial Vessel MD Consuelo gonzalez Work Phone: Start: 07-17-2022 History of coronary artery bypass grafting Hx of CABG Pmh 2 Start: 05-12-2022 CL LHC & COR Angio w/grafts MD Consuelo Villasenor Work Phone: Start: 05-11-2022 SARS Antigen (LFIA) MD Consuelo fitzpatrick Work Phone: Start: 02-15-2022 CT of chest without contrast MD Consuelo Villasenor Work Phone: Start: 01-04-2022 Plain chest X-ray MD Consuelo fitzpatrick Work Phone: Start: 12-05-2021 Plain chest X-ray MD Consuelo fitzpatrick Work Phone: Start: 11-29-2021 Plain chest X-ray MD Consuelo fitzpatrick Work Phone: Start: 11-28-2021 Needle biopsy MD Consuelo fitzpatrick Work Phone: Start: 11-21-2021 Positron emission tomography with computed tomography MD Consuelo Villasenor Work Phone: Biopsy of lung No PCP None Cardiac catheterization Refe rring Provider Unknown Cataract surgery Referring P rovider Unknown Coronary artery bypa ss graft Referring Provider Unknown Dental surgical procedure Sh sunshine Elliott Work Phone: History of coronary artery bypass grafting S/P CABG (coronary artery bypass graft) Referring Provider Unknown History of coronary artery bypass grafting History of coronary artery bypass graft x 3 MD Consuelo Villasenor Work Phone: History of placement of stent for coronary artery disease Status post insertion of drug eluting coronary artery stent Referring Provider Unknown Plan of Treatment Date Care Activity Detail Author Start: 11-05-2024 Adult BMI Screening Adult BMI Screen [facility] Start: 11-05-2024 Tobacco Screening Tobacco Screening [facility] Start: 10-29-2024 Tobacco Screening Tobacco Screening [facility] Start: 10-24-2024 Adult BMI Screening Adult BMI Screen ing [facility] Start: 10-24-2024 Tobacco Screening Tobacco Screening [facility] Start: 01-04-2024 End: 01-04-2024 Patient encounter procedure 01/04/2024 8:45 AM EST Office Visit [facility] - Medical Oncology [address] [place] [phone] Chun Alvarez MD [address] [facility] [address] [place], [place] [id number] [facility] - Medical Oncology Start: 11-05-2023 End: 11-05-2023 Litholapaxy smpl/sm <2.5 cm LASER CYSTOSCOPY LITHOLAPAXY Bladder stones Benign prostatic hyperplasia with lower urinary tract symptoms, symptom details unspecified 11/05/2023 8:12 AM EST [facility] Start: 11-05-2023 End: 11-05-2023 Admission to same day surgery center 11/05/2023 8:00 AM EST - 11/05/2023 9:[address] [facility] - Surgery [address] [place] [id number] Reji Romero MD [address] [place] [address] [id number] [facility] - Surgery Comment on above: CYSTOSCOPY LITHOLAPA XY Start: 11-05-2023 End: 11-05-2023 Anesthesia consultation 11/05/2023 8:00 AM EST Anesthesia Event [facility] - Surgery [address] [place] [phone] Gisselle Carver, DO [address] [place] [address] [facility] Start: 11-05-2023 End: 11-05-2023 CYSTOSCOPY LITHOLAPAXY CYSTOSCOPY LITHOLAPAXY Bladder stones Benign prostatic hyperplasia with lower urinary tract symptoms, symptom details unspecified 11/05/2023 8:00 AM EST [facility] Start: 11-05-2023 Subsequent hospital visit by physician 11/05/2023 8:00 AM EST Hospital Encounter [facility] [address] [place] [address] Reji Romero MD [address] [place] [address] [facility] Start: 10-03-2023 FUV, Provider: Walt Jackson, Status: Pen, Time: 10:00 AM FUV, Provider: Walt Jackson, Status: Pen, Time: 10:00 AM [facility] 250 DO Work Phone: Start: 06-29-2023 Influenza vaccination Influenza Vacc ine [facility] Start: 10-04-2022 FUV, Provider: Walt Jackson, Status: Pen, Time: 9:40 AM FUV, Provider: Walt Jackson, Status: Pen, Time: 9:40 AM [facility] 250 DO Work Phone: Start: 07-28-2022 [facility] Start: 07-26-2022 Hospital admission [facility] Start: 07-26-2022 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 250 DO Work Phone: Start: 1979 Administration of varicella zoster vaccine Zoster (Shingles) Vaccine (1 of 2) [facility] Start: 1979 DTaP,Tdap and Td Vac cines (1 - Tdap) DTaP,Tdap and Td Vaccines (1 - Tdap) [facility] Start: 1978 Adult BMI Follow Up Plan Adult BMI Follow Up Plan [facility] Start: 1972 [facility] Work Phone: Patient referral [facility] Work Phone: Payers Date Payer Category Payer Medicaid [id number] 2023 Self-pay [id number] 2022 Unknown 2022 Unknown [id number] 1960 Unknown [id number] 2.16.84 0.1.453593.3.579.2.593 1960 Unknown [id number] 2.16.84 0.1.012683.3.579.2.593 1960 Unknown [id number] 2.. 840.1.454243.3.579.2.356 1960 Unknown [id number] 2.16. 840.1.111982.3.579.2.356 1960 Unknown [id number] 2.16. 840.1.668249.3.579.2.356 1960 Unknown [id number] 2.16. 840.1.379013.3.579.2.356 1960 Unknown [id number] 2.16. 840.1.096997.3.579.2.356 1960 Unknown [id number] 2.16. 840.1.428055.3.579.2.356 1960 Unknown [id number] 2.16. 840.1.128740.3.579.2.356 1960 Unknown [id number] 2.16.8 40.1.483414.3.579.2.727 1960 Unknown [id number] 2.16. 840.1.221225.3.579.2.196 1960 Unknown [id number] 2.16.84 0.1.958718.3.579.2.1286 1960 Unknown [id number] 2.16.84 0.1.278250.3.579.2.1286 1960 Unknown [id number] 2.16.84 0.1.806574.3.579.2.1286 1960 Unknown [id number] 2.16.84 0.1.620425.3.579.2.1286 1960 Unknown [id number] 2.16.84 0.1.643134.3.579.2.1286 1960 Unknown [id number] 2.16.84 0.1.388751.3.579.2.1286 1960 Unknown [id number] 2.16.84 0.1.205962.3.579.2.1286 1959 Unknown [id number] Medicaid [employer] [id number] Unknown HCAP/HFA/FAP Active [id number] Unknown [id number] 2.16.8 40.1.921841.3.579.2.531 Unknown [id number] Social History Date Type Detail Facility Start: 12-06-2020 End: 10-24-2023 No alcohol use No alcohol use [employer] Other Comment on above: QUIT 15 YEARS AGO 20 06- SMOKED ABOUT 2 PPD; Start: 11-28-2021 End: 09-05-2023 Tobacco smoking status NHIS Ex-smoker (finding) [facility] Start: 1960 Sex Assigned At Male F [facility] Start: 12-06-2020 End: 10-24-2023 Sex Assigned At [employer] Other End: 05-24-2005 History of tobacco use Current smoker [facility] End: 05-24-2005 History of tobacco use Cigarette Smoker [facility] [facility] Start: 09-05-2023 Tobacco use and exposure Smokeless tobacco non-user [facility] Start: 10-24-2023 End: 11-05-2023 Alcohol intake Current non-drinker of alcohol (finding) [facility] Housing Instability Unknown [facility] [employer] Start: 1960 Sex Assigned At Not on file P [employer] [facility] Medical Equipment Procedure Code Equipment Code Equipment Origin al Text Equipment Identifier Dates Drug-eluting coronary artery stent, zla-wndebfgxkucei-to lymer-coated [id number] FDA Start: 04-27-2021 Femoral artery closure plug/patch, synthetic polymer [id number] FDA Start: 04-27-2021 Lens 16.0 Paco Sn 60wf - [id number] - [id number] Start: 12-27-2017 Lens 16.0 Paco Sn 60wf - [id number] - [id number] Start: 02-28-2018 Goals Date Patient Goal Desired Activity /State Personal health goal Comment on above: Formatting of this n ote might be different from the original. Evaluation of progress towards goal: Patient will discharge home with , self care. - Martin Arroyo RN 11/30/22 11:39 AM Functional Status Date Assessment Result Facility 07-28-2022 Functional status Patient at Baseline [facility] Work Phone: Mental Status Date Assessment Result Facility 07-28-2022 Cognitive function Cognitive Sta tus Patient at Baseline [facility] Work Phone: Clinical Notes 12-27-2014 to 11-05-2023 Telephone Encounter - Reji Romero MD - 11/05/2023 9:19 AM ESTTelephone Encounter - Reji Romero MD - 11/05/2023 9:19 AM ESTPatient Instructions Note Date & Type Note Facility 11-05-2023 Miscellaneous Notes Have patient return the office in [place] about 4 weeks documented in this encounter [facility] 11-05-2023 Telephone encounter Note Have patient return the office in [place] about 4 weeks [facility] 10-24-2023 Instructions Alejandrina Mendoza RN - 10/24/2023 10:30 AM EST Preoperative Education Checklist- General Surgery date: 11/05/23 Surgery time: 8a Arrival time: 610a 1. Bring a photo ID and your insurance card with you the day of surgery. You will check in at the main lobby of the [facility]- registration desk is straight ahead as soon as you walk in. Tell them you are here for surgery. 2. If you have a Living Will/Durable Power of Garbage Truck Driver for Health Care that is not on file here, please bring a copy the day of surgery. 3. Please shower/bathe the night before surgery with the provided soap or wipes. Do not shower the morning of surgery- you will do use wipes when you arrive here at the hospital before getting into your surgical gown. Do not shave the area of your procedure for 2 days prior to your surgery. 4. NO powder, lotion, perfume/cologne, aftershave, make-up, deodorant, or hair products after you have bathed. 5. NO nail honduran/acrylic on at least one finger. If you are having a hand, wrist or foot surgery then all nail honduran and artificial/acrylic nails must be removed from that hand or foot. 6. Avoid ALL Aspirin and non-steroidal anti-inflammatory drugs and certain vitamins (Ibuprofen, Advil, Aleve, Excedrin, Meloxicam, Celebrex, fish/krill oil, etc.) for 7 days prior to surgery as instructed by your surgeon and/or your prescribing doctor. Tylenol IS ALLOWED. If you are on Ticlid, Xarelto, Eliquis, Pradaxa, Plavix or Coumadin, please check with your prescribing doctor for instructions for when to stop them. 7. If you use an inhaler, continue to use it routinely. 8. Nothing to eat or drink (not even water, gum, mints, or hard candy!) AFTER midnight prior to your surgery. 9. Take only medications that you are instructed to on the morning of surgery with a TINY SIP OF WATER. 10. Choose a responsible adult that will be able to drive you home when you are discharged from your hospital stay for your surgery and can stay with you in your home for 24 hours after your procedure. You must NOT drive any vehicle or operate any machinery for 24 hours after surgery. 11. When you dress for your appointment, please wear loose fitting clothing that is appropriate to accommodate your surgical area procedure. BRING WITH YOU ANY DEVICES YOU MAY NEED: HOSSEIN hose, ice machine, sling/swath, brace or special shoe, oversized zip-up or button up shirt, CPAP machine if staying overnight. 12. Do NOT wear jewelry, watches, or any piercings or metal for surgery- leave these valuables and money at home. 13. Do NOT wear contact lenses for surgery- glasses are okay if needed. 14. The anesthesiologist will talk with you the day of surgery and will ask you to sign a Consent Form. 15. Refrain from smoking or any type of tobacco use for at least 8 hours and marijuana for 24 hours prior to arrival for your surgery. 16. If a GREEN BLOOD band is given to you, please bring it with you for the day of surgery. 17. Notify your surgeon if you develop any illness before your surgery. 18. If you are staying overnight, please DO NOT BRING your home medications with you. 19. If you have any questions prior to surgery, please call the Preadmission Testing office at [phone], Mon.-Fri. 7 a.m.-3 p.m. Leave a voicemail if needed. Pre-Surgery Instructions: Medication Instructions aspirin 81 mg Check with prescribing doctor for instructions atorvastatin (LIPITOR) 40 mg tablet Stop taking 0 days prior to procedure clopidogreL (PLAVIX) 75 mg tablet Check with prescribing doctor for instructions isosorbide mononitrate (IMDUR) 60 mg 24 hr tablet Take morning of procedure metoprolol tartrate (LOPRESSOR) 25 mg tablet Take morning of procedure tamsulosin (FLOMAX) 0.4 mg capsule Stop taking 0 days prior to procedure tamsulosin (FLOMAX) 0.4 mg capsule Stop taking 0 days prior to procedure documented in this encounter [facility] 08-09-2023 Evaluation note Encounter Date Diagnosis Assessment Notes Jul, Mycobacterium infections, 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) Jul, Chronic obstructive pulmonary disease, unspecified COPD type (ICD-10 - J44.9) Jul, Non-small cell lung cancer, unspecified laterality (ICD-10 - C34.90) [facility] Progress note Author Jaswinder Flores [facility] July 28, 2022 10:37am Note Date/Time July 28, 2022 10:34am [facility] [address] [place] [address] Hospitalist Progress Note Signed Patient: Zaid Mello MR#: [id number] : 1960 Acct:[id number] Age/Sex: 61 / M Adm Date: 2 Loc: Room: [address] [place] [address] Type: ADM INOo Attending Dr: Jaswinder Flores MD Copies to: ~ Date of Service: 07/28/2022 Subjective Subjective Narrative: Patient was seen and examined at bedside. Remained hemodynamically stable overnight. No chest pain reported overnight. Troponin levels down trended. Patient seems comfortable this morning denies any chest pain but still has occasional tingling in his left arm which is similar to his symptom when he had previous cath. Maintained n.p.o. past midnight for possible procedure today. Plan for cardiac cath as per cardio. Exam Physical Exam Vital Signs: Temp Pulse Resp BP Pulse Ox O2 Del Method 97.9 F 68 18 127/76 95 Room Air 07/28/22 07:59 07/28/22 07:59 07/28/22 07:59 07/28/22 07:59 07/28/22 07:59 07/28/22 08:00 Narrative: Const General: cooperative, comfortable, in no acute distress HEENT Head: normal to inspection Nose: external nose normal Mouth: oral mucosae normal and lip normal Eyes Conjunctivae: conjunctivae normal Neck Neck: normal visual inspection Chest inspection: healed sternotomy scar Resp Effort & Inspection: normal respiratory effort, not labored, no respiratory distress Auscultation: Diminished lung sounds, no wheezes Cardio Rate: normal rate Rhythm: regular rhythm Heart Sounds: S1 normal, S2 normal and no murmurs GI Inspection: non-distended Palpation: soft, not firm and nontender Neuro General: alert, awake and oriented x3. No obvious focal deficit Extrem General: no cyanosis, no pedal edema Psych Appearance: grossly normal Affect: normal affect Attitude: cooperative Objective Lab Results CBC & Chem 7: 07/28/22 06:54 07/28/22 06:54 Meds Allergies and Active Meds Allergies No Known Allergies Allergy (Verified 05/11/22 07:24) Active Meds: Active Medications Generic Name Dose Route Start Last Admin Trade Name Freq PRN Reason Stop Dose Admin Acetaminophen 650 mg 07/26/22 16:59 Acetaminophen 325 Mg Tablet PO 07/26/23 16:58 Q6HR PRN Pain Scale 1 - 3 or fever Aspirin 81 mg 07/27/22 09:00 07/28/22 08:05 Aspirin 81 Mg Tablet. PO 07/27/23 08:59 81 mg DAILY LIZZ Administration Atorvastatin Calcium 80 mg 07/26/22 21:00 07/27/22 20:29 Atorvastatin 80 Mg Tablet PO 07/26/23 20:59 80 mg QPM LIZZ Administration Dextrose 0 gm 07/27/22 11:21 Dextrose 50% In Water 25 Gm/50 Ml Syringe IV-PUSH 07/27/23 11:20 PRN PRN Hypoglycemia Docusate Sodium 100 mg 07/26/22 16:59 Docusate 100 Mg Capsule PO 07/26/23 16:58 BID PRN Constipation Enoxaparin Sodium 100 mg 07/26/22 18:30 07/27/22 17:55 Enoxaparin 100 Mg/Ml Syringe SUBCUT 07/26/23 18:29 100 mg Q12H LIZZ Administration Glucose 0 gm 07/27/22 11:21 Dextrose 40% Gel 15 Gm Tube PO 07/27/23 11:20 PRN PRN Hypoglycemia Dextrose/Sodium Chloride 1,000 mls @ 100 mls/hr 07/28/22 12:00 5 % Dextrose-0.45 % Nacl IV 07/28/23 11:59 .Q10H LIZZ Insulin Aspart 0 units 07/27/22 12:00 07/28/22 08:05 Insulin Aspart 300 Units/3 Ml Insuln.Pen SUBCUT 07/27/23 11:59 Not Given TID.WM.HS [facility] Protocol Isosorbide Mononitrate 30 mg 07/27/22 09:00 07/28/22 08:05 Isosorbide Mononitrate 24hr Er 30 Mg Tab.Er.24h PO 07/27/23 08:59 30 mg DAILY LIZZ Administration Melatonin 3 mg 07/26/22 16:59 Melatonin 3 Mg Tablet PO 07/26/23 16:58 QHS PRN Insomnia Metoprolol Tartrate 25 mg 07/26/22 21:00 07/28/22 08:05 Metoprolol Tartrate 25 Mg Tablet PO 07/26/23 20:59 25 mg BID LIZZ Administration Morphine Sulfate 2 mg 07/26/22 16:59 Morphine Sulfate 2 Mg/Ml Vial IV-PUSH Q4H PRN Pain Scale 8 - 10 Nitroglycerin 0.4 mg 07/26/22 17:04 Nitroglycerin 0.4 Mg Tab.Subl SUBLINGUAL 07/26/23 17:03 Q5M PRN Chest Pain Potassium Chloride 40 meq 07/28/22 07:00 Potassium Chloride Er 20 Meq Tab.Er.Prt PO STAT PRN Hypokalemia Prochlorperazine Edisylate 5 mg 07/26/22 16:59 Prochlorperazine Edisylate 10 Mg/2 Ml Vial IM 07/26/23 16:58 Q4H PRN Nausea And Vomiting Sennosides 1 tab 07/26/22 16:59 Sennosides 8.6 Mg Tablet PO 07/26/23 16:58 BID PRN Constipation Sodium Chloride 0 ml 07/27/22 16:05 Sodium Chloride 0.9 % 10 Ml Syringe IV-PUSH 07/27/23 16:04 PRN PRN Flush Tamsulosin HCl 0.4 mg 07/27/22 09:00 07/28/22 08:05 Tamsulosin 0.4 Mg Cap.Er.24h PO 07/27/23 08:59 0.4 mg DAILY LIZZ Administration Ticagrelor 90 mg 07/26/22 21:00 07/28/22 08:05 Ticagrelor 90 Mg Tablet PO 07/26/23 20:59 90 mg BID LIZZ Administration Tramadol HCl 50 mg 07/26/22 16:59 Tramadol 50 Mg Tablet PO 01/22/23 16:58 Q6H PRN Pain Scale 4 - 7 A&P - Hospitalist Assessment/Plan (1) History of ST elevation myocardial infarction (STEMI): (2) History of coronary artery bypass graft x 3: (3) COPD (chronic obstructive pulmonary disease): (4) Non-ST elevation myocardial infarction (NSTEMI), initial care episode: Plan NSTEMI HX of CABG x 3, CAD s/p PCI in 04/27/21 stenting SVG to RCA -Remained hemodynamically stable overnight. Denies any chest pain or shortness of breath no nausea or vomiting. Still with some numbness on and off in left upper extremity. -Blood work acceptable. -Serial troponins levels downtrending -Nitroglycerin sublingual as needed as directed -Echocardiogram with no significant change from prior -Maintaining n.p.o. status -Continue full dose Lovenox ACS protocol -Resumed home medications DAPT, BB, Statin and imdur -Cardiology input appreciated. Plan for cardiac cath today. Newly diagnosed DM -HbA1C 6.9. Patient has no hx of DM, neither takes anti hyperglycemic agents. -Continue sliding scale for now. Will adjust as needed -Carb consistent diet. NPO for procedure today. DVT prophylaxis with Lovenox CODE STATUS full code Discussed with patient at bedside, all questions answered Documented By: Jaswinder Flores MD 07/28/22 10 29 Signed By: <Electronically signed by Jaswinder Flores MD> 07/28/[address] [place] [address] Ctr Work Phone: 1(469) 868-913909-29-2022 Consult note Author Jermaine Jackson [facility] July 27, 2022 5:13pm Note Date/Time July 27, 2022 5:03pm [facility] [address] [place] [address] Cardiology Consult Note Signed Patient: Zaid Mello MR#: [id number] : 1960 Acct:[id number] Age/Sex: 61 / M Adm Date: 2 Loc: Room: [address] [place] [address] Type: ADM INOo Attending Dr: Jaswinder Flores MD Copies to: MD Jermaine Srinivasan MD, DO~ Cardiology HPI History of Present Illness Consult Date: 07/27/22 Reason for Consult: Non-ST elevation OK HPI: Mr. Mello is a 61 year old male seen in interventional cardiology consultationat request of the hospitalist after patient is transferred from [place] ER withnew onset chest discomfort syndrome initial troponins there were 40 and after arrival here 500, with otherwise normal ECG. He was at his employment, develop left arm and left chest discomfort twice yesterday with associated shortness of breath. I did discuss the case with ER attending Dr. Coles, reviewed his angiogram from April 2022, which basically revealed widely patent right coronary vein graft stent, minimal circumflex disease and a patent ORTIZ to the LAD and a patent vein graft to the diagonal. He underwent PCI of the vein graft to the RCA in March 2021 for acute coronary event, has maintained dual antiplatelet therapy since that time with brief interruptions for tooth extractions recently. Past medical history is noted for remote tobacco use, COPD, ASHD with prior CABG, history of inferolateral wall myocardial infarction in March 2021 with revascularization of the vein graft to the RCA diabetes mellitus, mild obesity, hyperlipidemia Impression/recommendations: Acute non-ST elevation OK, concern for subacute stent thrombosis due to recent antiplatelet therapy withdrawal for teeth extraction. SHASHI risk score is 5-7 consistent with high risk. Risk benefits alternatives and informed decision-making process performed with patient and family for 30 minutes this afternoon we will proceed with catheterization tomorrow morning Review of Systems Review of Systems All other systems reviewed & are negative unless noted below or in HPI Constitutional Constitutional: Reports as per HPI Eyes Eyes: Reports system reviewed and no additional complaints, except as documented ENT Ears, Nose, Mouth, and Throat: Reports system reviewed and no additional complaints, except as documented Cardiovascular Cardiovascular: Reports as per HPI, Reports chest pain at rest, Reports chest pain with activity and Reports radiating jaw, neck or arm pain Respiratory Respiratory: Reports as per HPI and Reports dyspnea Gastrointestinal Gastrointestinal: Reports system reviewed and no additional complaints, except as documented Genitourinary Genitourinary: Reports system reviewed and no additional complaints, except as documented Musculoskeletal Musculoskeletal: Reports system reviewed and no additional complaints, except asdocumented Integumentary/Breasts Skin/Breast: Reports system reviewed and no additional complaints, except as documented Neurologic Neurologic: Reports system reviewed and no additional complaints, except as documented PMFSH Vaccinated for COVID-19?: No Medical History Asthma borderline BPH (benign prostatic hyperplasia) enlarged prostate COPD (chronic obstructive pulmonary disease) diagnosed 3 years ago, no home oxygen Coronary artery disease 1 1/2 year ago for chest pain COVID-19 History of cataract bilat cataract repair Lung abnormality rare fungus, microbacterial growth that needs to be removed Surgical History History of cardiac catheterization 1 stent History of heart bypass surgery Triple by-pass 14 years ago Family History Mother Hypertension Sister Cancer CAD (coronary artery disease) Brother CAD (coronary artery disease) Sister Stroke Cancer Brother CAD (coronary artery disease) Brother CAD (coronary artery disease) Sister Cancer Sister Stroke Social History Smoking Status: Former smoker Tobacco Type: cigarettes Substance Use Type: None Social History Comments: lives with mother Meds Medications and Allergies Allergies No Known Allergies Allergy (Verified 05/11/22 07:24) Home Medications aspirin 81 mg tablet,delayed release 81 mg PO DAILY 04/27/21 [History Confirmed 07/26/22] metoprolol tartrate 25 mg tablet 25 mg PO BID 04/27/21 [History Confirmed 07/26/22] tamsulosin 0.4 mg capsule (Flomax) 0.4 mg PO DAILY 04/27/21 [History Confirmed 07/26/22] atorvastatin 80 mg tablet 80 mg PO QPM 30 days #30 tabs 04/29/21 [Rx Confirmed 07/26/22] nitroglycerin 0.4 mg sublingual tablet (Nitrostat) 0.4 mg sublingual Q5M PRN chest pain 30 days #25 tabs 04/29/21 [Rx Confirmed 07/26/22] ticagrelor 90 mg tablet (Brilinta) 90 mg PO BID 90 days #180 tabs 04/29/21 [Rx Confirmed 07/26/22] isosorbide mononitrate 30 mg tablet,extended release 24 hr 30 mg PO DAILY #30 tabs 05/12/22 [Rx Confirmed 07/26/22] Exam Physical Exam Vital Signs: Temp Pulse Resp BP Pulse Ox O2 Del Method 97.7 F 58 L 16 123/77 95 Room Air 07/27/22 15:16 07/27/22 15:16 07/27/22 15:16 07/27/22 15:16 07/27/22 15:16 07/27/22 15:16 Const General: cooperative, comfortable and no acute distress Nutritional Appearance: overweight Orientation: alert, awake and oriented x3 HEENT Head: normal to inspection Eyes General: appearance normal, both eyes and all related structures Neck Neck: normal visual inspection Chest Chest palpation & inspection: normal inspection of the chest Breast inspection: normal inspection of the breasts Resp Effort & Inspection: normal respiratory effort Auscultation: clear to auscultation bilaterally Cardio Palpation: normal PMI Rate: regular rate Rhythm: regular rhythm Heart Sounds: S1 normal, S2 normal and no murmurs Pulses: radial pulses present GI Palpation: soft Skin General: no rashes or lesions noted Neuro General: patient alert, patient awake and patient oriented x3 Cognition: normal cognition Speech: speech normal Extrem General: no clubbing, cyanosis or edema Results Labs CBC & CMP: 07/26/22 17:30 07/26/22 17:30 Lab results: Cardiac Enzymes 07/26/22 Range/Units 17:30 AST 25 (10-42) U/L Lipids 07/26/22 Range/Units 17:30 Triglycerides 109 (35-149) mg/dL Cholesterol 103 L (140-200) mg/dL HDL Cholesterol 30 (29-71) mg/dL Cholesterol/HDL Ratio 3.4 (<5.0) CBC 07/26/22 Range/Units 17:30 RBC 4.50 (3.90-5.60) x10E6/uL Hgb 13.5 (13.0-17.0) g/dL Hct 39.8 (38.8-50.0) % Plt Count 240 (150-450) x10E3/uL Neut # (Auto) 4.1 (1.8-7.7) x10E3/uL Lymph # (Auto) 1.3 (1.00-4.8) x10E3/uL [place] # (Auto) 0.6 (0.0-0.8) x10E3/uL Eos # (Auto) 0.2 (0.0-0.45) x10E3/uL Baso # (Auto) 0.0 (0.0-0.2) x10E3/uL Comprehensive Metabolic Panel 07/26/22 Range/Units 17:30 Sodium 136 (136-146) mmol/L Potassium 4.2 (3.5-5.1) mmol/L Chloride 100 (95-114) mmol/L Carbon Dioxide 25.7 (22.0-30.0) mmol/L BUN 6 L (9-23) mg/dL Creatinine 0.93 (0.64-1.27) mg/dL Glucose 93 (70-100) mg/dL Calcium 9.1 (8.2-10.2) mg/dL AST 25 (10-42) U/L ALT 26 (10-60) U/L Alkaline Phosphatase 84 (32-92) U/L Total Protein 6.5 (6.1-7.9) gm/dL Albumin 3.7 (3.2-5.5) gm/dL Intake and Output 07/27/22 07/27/22 07/27/22 07:59 15:59 23:59 Intake Total 0 / 100 100 / 100 Balance 0 / 100 100 / 100 Intake: Oral 0 / 100 100 / 100 Other: # Unmeasured Voids 1 5 # Bowel Movements 1 Weight 99.6 kg Date of Last Bowel Movement 07/27/22 Patient Weight 07/27/22 23:59 Weight 99.6 kg Lab 07/26/22 17:30 PT 12.4 INR 1.1 EKG Interpretations EKG EKG results cardiology: WNL and sinus rhythm A&P - Cardiology (1) History of ST elevation myocardial infarction (STEMI): Code(s): I25.2 - Old myocardial infarction (2) Angina pectoris: Code(s): I20.9 - Angina pectoris, unspecified (3) History of coronary artery bypass graft x 3: Code(s): Z95.1 - Presence of aortocoronary bypass graft (4) Non-ST elevation myocardial infarction (NSTEMI), initial care episode: Code(s): I21.4 - Non-ST elevation (NSTEMI) myocardial infarction Documented By: Jermaine Jackson DO 07/27/221 Signed By: <Electronically signed by Jermaine Jackson DO> 07/27/22 [address] [facility] Work Phone: 1(980) 105-189809-29-2022 Progress note Author Jaswinder Flores [facility] July 27, 2022 11:27am Note Date/Time July 27, 2022 11:21am [facility] [address] [place] [address] Hospitalist Progress Note Signed Patient: Zaid Mello MR#: [id number] : 1960 Acct:[id number] Age/Sex: 61 / M Adm Date: 2 Loc: Room: [address] [place] [address] Type: ADM INOo Attending Dr: Jaswinder Flores MD Copies to: ~ Date of Service: 07/27/2022 Subjective Subjective Narrative: Patient was seen and examined at bedside. Remained hemodynamically stable overnight. No chest pain reported overnight. Troponin levels down trended. Patient seems comfortable this morning denies any chest pain. Maintained n.p.o.past midnight for possible procedure today. Awaiting cardiology evaluation. Exam Physical Exam Vital Signs: Temp Pulse Resp BP Pulse Ox O2 Del Method 97.7 F 70 16 153/76 H 97 Room Air 07/27/22 08:00 07/27/22 08:00 07/27/22 08:00 07/27/22 08:00 07/27/22 08:00 07/27/22 08:00 Narrative: Const General: cooperative, comfortable, in no acute distress HEENT Head: normal to inspection Nose: external nose normal Mouth: oral mucosae normal and lip normal Eyes Conjunctivae: conjunctivae normal Neck Neck: normal visual inspection Chest inspection: healed sternotomy scar Resp Effort & Inspection: normal respiratory effort, not labored, no respiratory distress Auscultation: Diminished lung sounds, no wheezes Cardio Rate: normal rate Rhythm: regular rhythm Heart Sounds: S1 normal, S2 normal and no murmurs GI Inspection: non-distended Palpation: soft, not firm and nontender Neuro General: alert, awake and oriented x3. No obvious focal deficit Extrem General: no cyanosis, no pedal edema Psych Appearance: grossly normal Affect: normal affect Attitude: cooperative Objective Lab Results CBC & Chem 7: 07/26/22 17:30 07/26/22 17:30 Meds Allergies and Active Meds Allergies No Known Allergies Allergy (Verified 05/11/22 07:24) Active Meds: Active Medications Generic Name Dose Route Start Last Admin Trade Name Freq PRN Reason Stop Dose Admin Acetaminophen 650 mg 07/26/22 16:59 Acetaminophen 325 Mg Tablet PO 07/26/23 16:58 Q6HR PRN Pain Scale 1 - 3 or fever Aspirin 81 mg 07/27/22 09:00 07/27/22 09:09 Aspirin 81 Mg Tablet. PO 07/27/23 08:59 81 mg DAILY LIZZ Administration Atorvastatin Calcium 80 mg 07/26/22 21:00 07/26/22 20:19 Atorvastatin 80 Mg Tablet PO 07/26/23 20:59 80 mg QPM LIZZ Administration Docusate Sodium 100 mg 07/26/22 16:59 Docusate 100 Mg Capsule PO 07/26/23 16:58 BID PRN Constipation Enoxaparin Sodium 100 mg 07/26/22 18:30 07/27/22 06:18 Enoxaparin 100 Mg/Ml Syringe SUBCUT 07/26/23 18:29 Not Given Q12H LIZZ Isosorbide Mononitrate 30 mg 07/27/22 09:00 07/27/22 09:10 Isosorbide Mononitrate 24hr Er 30 Mg Tab.Er.24h PO 07/27/23 08:59 30 mg DAILY LIZZ Administration Melatonin 3 mg 07/26/22 16:59 Melatonin 3 Mg Tablet PO 07/26/23 16:58 QHS PRN Insomnia Metoprolol Tartrate 25 mg 07/26/22 21:00 07/27/22 09:10 Metoprolol Tartrate 25 Mg Tablet PO 07/26/23 20:59 25 mg BID LIZZ Administration Morphine Sulfate 2 mg 07/26/22 16:59 Morphine Sulfate 2 Mg/Ml Vial IV-PUSH Q4H PRN Pain Scale 8 - 10 Nitroglycerin 0.4 mg 07/26/22 17:04 Nitroglycerin 0.4 Mg Tab.Subl SUBLINGUAL 07/26/23 17:03 Q5M PRN Chest Pain Prochlorperazine Edisylate 5 mg 07/26/22 16:59 Prochlorperazine Edisylate 10 Mg/2 Ml Vial IM 07/26/23 16:58 Q4H PRN Nausea And Vomiting Sennosides 1 tab 07/26/22 16:59 Sennosides 8.6 Mg Tablet PO 07/26/23 16:58 BID PRN Constipation Tamsulosin HCl 0.4 mg 07/27/22 09:00 07/27/22 09:10 Tamsulosin 0.4 Mg Cap.Er.24h PO 07/27/23 08:59 0.4 mg DAILY LIZZ Administration Ticagrelor 90 mg 07/26/22 21:00 07/27/22 09:10 Ticagrelor 90 Mg Tablet PO 07/26/23 20:59 90 mg BID LIZZ Administration Tramadol HCl 50 mg 07/26/22 16:59 Tramadol 50 Mg Tablet PO 01/22/23 16:58 Q6H PRN Pain Scale 4 - 7 A&P - Hospitalist Assessment/Plan (1) Chest pain: (2) Stable angina: (3) History of ST elevation myocardial infarction (STEMI): (4) History of coronary artery bypass graft x 3: (5) COPD (chronic obstructive pulmonary disease): Plan Chest pain/stable angina HX of CABG x 3, CAD s/p PCI in 04/27/21 stenting SVG to RCA -Remained hemodynamically stable overnight. Denies any chest pain or shortness of breath no nausea or vomiting. Had some numbness this morning with left upperextremity. Encouraged him to to ambulate in the room to see if he becomes symptomatic. -Blood work acceptable. -Serial troponins levels downtrending -Nitroglycerin sublingual as needed as directed -pending echocardiogram -Maintaining n.p.o. status -Continue full dose Lovenox ACS protocol -Resume home medications DAPT, BB, Statin and imdur -Awaiting cardiology evaluation Newly diagnosed DM -HbA1C 6.9. Patient has no hx of DM, neither takes anti hyperglycemic agents. -Start sliding scale for now. Will adjust as needed -Carb consistent diet DVT prophylaxis with Lovenox CODE STATUS full code Discussed with patient at bedside, all questions answered Documented By: Jaswinder Flores MD 07/27/22 11 18 Signed By: <Electronically signed by Jaswinder Flores MD> 07/27/22 [facility] Work Phone: 1(349) 429-682809-28-2022 History and physical note Author Jaswinder Flores [facility] July 26, 2022 5:18pm Note Date/Time July 26, 2022 5:10pm [facility] EN[facility] [address] [place] [address] Hospitalist H&P Signed Patient: Zaid Mello MR#: [id number] : 1960 Acct:[id number] Age/Sex: 61 / M Adm Date: 2 Loc: Room: [address] [place] [address] Type: ADM IN Attending Dr: Jaswinder Flores MD Copies to: Consuelo Flores MD~ HPI DATE OF EXAMINATION: 07/26/22 CHIEF COMPLAINT: chest pain HISTORY OF PRESENT ILLNESS: Patient is a 61 year old male with past medical history of CABG x3, CAD s/p PCI in 04/27/21 stenting SVG to RCA, Hx of COPD presented to [facility] for chest pain. Patient reported that he started having chest pain last night around 8 PM while he was walking, he states that there was substernal chest painradiating to his left arm with numbness all the way down his left upper extremity, it has relieved with rest, he slept overnight however came back this morning for which he decided to go to the ER. At [facility], initial EKG showed Qwaves in leads III and T wave inversions in inferior leads according to reports from [place]. Initial troponin was 40, and the second one was in 500s. They contacted our supervisor industrial garment Dr. Jackson who accepted to be human resource consultant on the case. Patient was started on full dose Lovenox at [facility]. Patient wastransferred to our [facility] for further evaluation and management and possible cardiac cath. During my encounter, patient is alert and awake and oriented x3, at bedside. Patient denies any chest pain at the moment, he has nitroglycerin patch on. States that he is hungry. Patient denies any dizziness, lightheadedness, nausea, vomiting, shortness of breath. Patient was made comfortable and placed on telemetry. Patient stated having a recent stress testprior to his dental procedure done at the end of may, unsure of the results but was cleared for procedure and held ASA and Brilinta for 7 days. Procedure went okay without complications. Review of Systems Review of Systems All other systems reviewed & are negative unless noted below or in HPI Review of systems: Constitutional Constitutional: Reports system reviewed and no additional complaints, except as documented Eyes Eyes: Reports system reviewed and no additional complaints, except as documented ENT Ears, Nose, Mouth, and Throat: Reports system reviewed and no additional complaints, except as documented Cardiovascular Cardiovascular: Reports system reviewed and no additional complaints, except as documented Respiratory Respiratory: Reports system reviewed and no additional complaints, except as documented Gastrointestinal Gastrointestinal: Reports system reviewed and no additional complaints, except as documented Genitourinary Genitourinary: Reports system reviewed and no additional complaints, except as documented Musculoskeletal Musculoskeletal: Reports system reviewed and no additional complaints, except asdocumented Neurologic Neurologic: Reports system reviewed and no additional complaints, except as documented Skin: no rash, lesions PMFSH Vaccinated for COVID-19?: Unknown Medical History Asthma borderline BPH (benign prostatic hyperplasia) enlarged prostate COPD (chronic obstructive pulmonary disease) diagnosed 3 years ago, no home oxygen Coronary artery disease 1 1/2 year ago for chest pain COVID-19 History of cataract bilat cataract repair Lung abnormality rare fungus, microbacterial growth that needs to be removed Surgical History History of cardiac catheterization 1 stent History of heart bypass surgery Triple by-pass 14 years ago Family History Mother Hypertension Sister Cancer CAD (coronary artery disease) Brother CAD (coronary artery disease) Sister Stroke Cancer Brother CAD (coronary artery disease) Brother CAD (coronary artery disease) Sister Cancer Sister Stroke Social History Smoking Status: Former smoker Tobacco Type: cigarettes Substance Use Type: None Social History Comments: lives with mother Meds Medications and Allergies Allergies No Known Allergies Allergy (Verified 05/11/22 07:24) Home Medications aspirin 81 mg tablet,delayed release 81 mg PO DAILY 04/27/21 [History Confirmed 05/12/22] metoprolol tartrate 25 mg tablet 25 mg PO BID 04/27/21 [History Confirmed 05/12/22] tamsulosin 0.4 mg capsule (Flomax) 0.4 mg PO DAILY 04/27/21 [History Confirmed 05/12/22] atorvastatin 80 mg tablet 80 mg PO QPM 30 days #30 tabs 04/29/21 [Rx Confirmed 05/12/22] nitroglycerin 0.4 mg sublingual tablet (Nitrostat) 0.4 mg sublingual Q5M PRN chest pain 30 days #25 tabs 04/29/21 [Rx Confirmed 05/11/22] ticagrelor 90 mg tablet (Brilinta) 90 mg PO BID 90 days #180 tabs 04/29/21 [Rx Confirmed 05/12/22] isosorbide mononitrate 30 mg tablet,extended release 24 hr 30 mg PO DAILY #30 tabs 05/12/22 [Rx] Exam Physical Exam Vital Signs: Temp Pulse Resp BP Pulse Ox O2 Del Method 98.2 F 58 L 18 140/79 96 Room Air 07/26/22 16:43 07/26/22 16:43 07/26/22 16:43 07/26/22 16:43 07/26/22 16:43 07/26/22 16:43 Narrative: Const General: cooperative, comfortable, in no acute distress HEENT Head: normal to inspection Nose: external nose normal Mouth: oral mucosae normal and lip normal Eyes Conjunctivae: conjunctivae normal Neck Neck: normal visual inspection Chest inspection: healed sternotomy scar Resp Effort & Inspection: normal respiratory effort, not labored, no respiratory distress Auscultation: Diminished lung sounds, no crackles, no wheezes Cardio Rate: normal rate Rhythm: regular rhythm Heart Sounds: S1 normal, S2 normal and no murmurs GI Inspection: non-distended Palpation: soft, not firm and nontender Neuro General: alert, awake and oriented x3. No obvious focal deficit Extrem General: no cyanosis, no pedal edema Psych Appearance: grossly normal Affect: normal affect Attitude: cooperative A&P - Hospitalist Assessment/Plan (1) Chest pain: (2) Stable angina: (3) History of ST elevation myocardial infarction (STEMI): (4) History of coronary artery bypass graft x 3: (5) COPD (chronic obstructive pulmonary disease): Plan -Patient currently chest pain free, nitroglycerin patch was applied on his chest from [facility]. States compliance with DAPT ASA and Brilinta since last year. It was interrupted recently last month for dental procedure. Patient had a recent stress test but unsure of results. -Repeat EKG -Check CBC, CMP, lipid panel , HbA1C -Check serial troponins -Nitroglycerin sublingual as needed as directed -Check echocardiogram -NPO midnight for possible procedure -Continue full dose Lovenox ACS protocol -Resume home medications DAPT, BB, Statin and imdur -Cardiology consult DVT prophylaxis with Lovenox CODE STATUS full code Discussed with patient and at bedside, all questions answered Documented By: Jaswinder Flores MD 07/26/22 17 05 Signed By: <Electronically signed by Jaswinder Flores MD> 07/26/22 1718 [facility] Work Phone: 1(922) 661-824807-15-2022 Discharge summary Author Jermaine Jackson [facility] May 12, 2022 9:55am Note Date/Time May 12, 2022 9:52 am [facility] [address] [place] [address] Discharge Summary Signed Patient: Zaid Mello MR#: [id number] : 1960 Acct:[id number] Age/Sex: 61 / M Adm Date: 2 Loc: CL Room: Attending Dr: Jermaine Jackson DO Copies to: Consuelo Jackson, ~ Providers Date of Discharge: 05/12/22 Discharging Provider: Jermaine Jackson Primary Care Provider: Consuelo Villasenor Discharge Diagnosis (1) History of coronary artery bypass graft x 3: (2) Angina pectoris: (3) COPD (chronic obstructive pulmonary disease): Final Diagnosis Final Discharge Diagnosis: 1. ASHD 2. History of three-vessel CABG 3. Inferior STEMI 621 with revascularization vein graft RCA 4. Widely patent vein graft RCA with mild plaque proximal and distal to the stent, patent ORTIZ LAD patent vein graft diagonal, preserved LV function on today's catheterization 5. COPD 6. Obesity Summary Hospital Course Hospital course: 61-year-old with new onset angina pectoris, history of three-vessel CABG, inferior ST elevation myocardial infarction in March 2021 with revascularization of the vein graft to the RCA presents with new onset angina. Scheduled for urgent catheterization because of symptoms Left heart catheter revealed widely patent stent in the vein graft to the RCA with plaque proximal and in the distal vein graft that were nonflow limiting. Patent ORTIZ to LAD patent vein graft to diagonal, preserved LV function. Nativecircumflex and 2 marginal branch patent with mild disease Medical therapy is warranted at this time we will initiate long-acting nitrates Condition Condition at Discharge: Stable Status at Discharge Functional status at discharge: independent ambulation Overall status at discharge: patient is back to baseline Time Spent with Patient Time spent providing/coordinating discharge services (# min): 15 Surgeries and Procedures Operation Date: 05/12/22 09:15 <No data on this case meets the specified criteria> Complications Complications: None Exam Physical Exam Vital Signs: Pulse BP Pulse Ox 55 L 131/69 98 05/11/22 07:06 05/11/22 07:06 05/11/22 07:06 Discharge Plan Discharge Plan Patient Disposition: Home Diet: Low-Cholesterol Additional Instructions: DISCHARGE INSTRUCTIONS FOR CARDIAC ESTIMATING MANAGER PHONE NUMBER OF YOUR PHYSICIAN: [phone] PROCEDURE: Heart Cath The following instructions have been prepared to help you care for yourself, or be cared for upon your return home. 1. You were given conscious sedation. Do not operate a vehicle, power tools, make important decisions, or drink alcohol for 24 hours. You might be drowsy orlight headed. Return to the Emergency Room if you have trouble breathing, walking or nausea and vomiting. 2. FOR BLEEDING: Apply continuous pressure to the site and call 911. 3. Operative Site Care: Keep the dressing clean and dry. You may change the dressing only if soiled or wet. You may remove the dressing the following morning. You may wash over the puncture site in the shower. If the puncture site is at the wrist no soaking for 3 days. Some bruising or slight swelling may be present. -Signs of infection are redness, warmth, swelling, getting more sore, colored drainage, fever or chills. -Should the arm or leg become cold, numb, blue or white, call the supervisor industrial garment immediately. 4. ACTIVITY: You are advised to go directly home from the hospital. Restrict your activities for the rest of the day. Resume light or normal activities tomorrow. Do not engage in any activity that will stress the puncture site. Avoid heavy lifting (over 15 lbs.), straining or bending at the catheter site for 48 hours after discharge. If the puncture site is at the wrist do not manipulate wrist for 24 hours and no lifting more than 3 lbs for 3 days. 5. DIET:You may eat your regular diet when you desire. 6. MEDICATIONS: Resume your daily prescription schedule. Prescriptions may be sent with you if needed. Use as directed. When taking pain medications, you may experience dizziness or drowsiness. Do not drink alcohol or drive when taking pain medications. 7. If you should experience episodes of angina e.g. chest discomfort, heaviness, tightness, pressure, burning, with or without radiation to the neck, jaws, arms, or back- Use 1 Nitrostat under your tongue every 5-10 minutes, and up to 3 tablets. If no relief- Call 911 and go to the nearest Emergency Room. -Notify the office for recurrent angina, chest pain or other concerns. You may NOT drive yourself home! Follow the medication instructions provided on your discharge. If the dosages and instructions on this sheet differ from the dosage and instructions on the bottle, follow the instructions on the bottle. [facility] is not responsible for incorrect prescription information provided by thepatient during their visit. Do not stop your medications without consulting your health care provider. Please take the list with you to your next doctor's appointment. Prescriptions: New isosorbide mononitrate 30 mg tablet extended release 24 hr 30 mg PO DAILY Qty: 30 RF: 6 Continued aspirin 81 mg Tablet,Delayed Release (Dr/Ec) 81 mg PO DAILY RF: 0 tamsulosin [Flomax] 0.4 mg Capsule 0.4 mg PO DAILY RF: 0 metoprolol tartrate 25 mg Tablet 25 mg PO BID RF: 0 atorvastatin 80 mg Tablet 80 mg PO QPM 30 Days Qty: 30 RF: 12 Brilinta 90 mg Tablet 90 mg PO BID 90 Days Qty: 180 RF: 3 nitroglycerin [Nitrostat] 0.4 mg tablet, sublingual 0.4 mg sublingual Q5M PRN (Reason: chest pain) 30 Days Qty: 25 RF: 3 Follow Up: Jermaine Jackson DO [Active Staff - D.O.] - Consuelo Villasenor MD [Primary Care Provider] - Documented By: Jermaine Jackson DO 05/12/22 0949 Signed By: <Electronically signed by Jermaine Jackson DO> 05/12/2255 [facility] Work Phone: 1(383) 688-353507-15-2022 Procedure [facility]05-11-2022 Evaluation note* Encounter Date Diagnosis Assessment Notes Treatment Notes Treatment Clinical Notes February, Chronic obstructive pulmonary disease, unspecified COPD type (ICD-10 - J44.9) February, Lung mass (ICD-10 - R91.8) Patient will discuss the options with his and will let me know, I recommended consideration for thoracoscopic resection of the right lower lobe mass which might require referral to tertiary center of his choice. 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 Also refer for CT-guided biopsy of right lower lobe mass Oct, Chronic obstructive pulmonary disease, unspecified COPD type (ICD-10 - J44.9) Oct, Dyspnea on exertion (ICD-10 - R06.00) Oct, Coronary artery disease involving little shell tribe heart without angina pectoris, unspecified vessel or lesion type (ICD-10 - I25.10) [facility] Other 03-01-2015 History general Narrative - Reported* Type Description Date Medical History CAD Medical History hyperlipidemia Medical History COPD Surgical History CABG 12/2014 Hospitalization History as above [facility] Other 03-01-2015 History general Narrative - Reported* Type Description Date Medical History CAD Medical History hyperlipidemia Medical History COPD Medical History lung cancer Surgical History CABG 12/2014 Surgical History lung resection RLL 11/2022 Surgical History Teeth extraction 10/2022 Hospitalization History as above Hospitalization History [facility] 11/2022 [facility] Other Discharge summary Author Jaswinder Flores [facility] July 28, 2022 5:31pm Note Date/Time July 28, 2022 5:31pm [facility] [address] [place] [address] Discharge Summary Signed Patient: Zaid Mello MR#: [id number] : 1960 Acct:[id number] Age/Sex: 61 / M Adm Date: 2 Loc: Room: [address] [place] [address]: Jaswinder Flores MD Copies to: Consuelo Flores MD~ Providers Date of Discharge: 07/28/22 Discharging Provider: Jaswinder Flores Primary Care Provider: Consuelo Villasenor Consults: 07/26/22 16:59 Consult to Cardiology Routine Discharge Diagnosis (1) Non-ST elevation myocardial infarction (NSTEMI), initial care episode: (2) History of ST elevation myocardial infarction (STEMI): (3) History of coronary artery bypass graft x 3: (4) COPD (chronic obstructive pulmonary disease): Final Diagnosis Final Discharge Diagnosis: As above Summary Hospital Course Hospital course: , PatientPatient is a 61 year old male with past medical history of CABG x3, CADs/p PCI in 04/27/21 stenting? SVG to RCA, Hx of COPD presented to [facility] for chest pain.? Patient reported that he started having chest pain while he was walking, he states that there was substernal chest pain radiating to his left arm with numbness all the way down his left upper extremity, it has relieved with rest. Patient decided to go to ER for further evaluation.? At [facility], initial EKG showed Q waves in leads III and T wave inversions in inferior leads according to reports from [facility].? Initial troponin was 40, andthe second one was in 500s.? They contacted our supervisor industrial garment Dr. Jackson who accepted to be human resource consultant on the case.? Patient was started on full dose Lovenoxat [facility]. Patient was transferred to our [facility] for further evaluation and management and possible cardiac cath. During hospital stay, troponin levels down trended however there was a concern for subacute stent thrombosis due to recent antiplatelet therapy withdrawal for teeth extraction.? SHASHI risk score is 5-7 consistent with high risk for which supervisor industrial garment proceeded with cardiac cath on 07/27 which showed widely patent grafts x3 and widely patent stent in SVG?RCA, newly occluded proximal RCA/RV marginal branch, consistent with infarct vessel. Patient was cleared from cardiology standpoint for discharge. Patient tolerated procedure well with no immediate complications and would like to go home. Patient was instructed regarding his HbA1c of 6.9. Discussed with patient at bedside, he is not interested in medications at this time and would like to try diet and exercise and other lifestyle modifications at this point. He said he will follow-up withhis primary doctor for further evaluation and management. Patient remained hemodynamically stable for discharge. Condition Condition at Discharge: Stable Time Spent with Patient Time spent providing/coordinating discharge services (# min): 40 Surgeries and Procedures Operation Date: 07/28/22 13:15 Actual Procedures p CL Coronary Angio w/grafts - W Catracho Jackson DO p CL Ivus Initial Vessel - W Catracho Jackson DO Diagnostic Studies Completed and Pending Studies Labs on day of discharge: 07/28/22 16:45: POC Glucose 145 07/28/22 11:55: POC Glucose 107 07/28/22 06:56: POC Glucose 98 07/28/22 06:54: PT 12.0, INR 1.1, APTT 34.9 07/28/22 06:54: Corrected WBC 5.6, Uncorrected WBC Count 5.6, RBC 4.56, Hgb 13.9, Hct 40.5, MCV 88.8, MCH 30.4, MCHC 34.3, RDW 13.0, Plt Count 209, MPV 7.9,Neut % (Auto) 58.5, Lymph % (Auto) 24.6, [place] % (Auto) 11.1, Eos % (Auto) 5.3, Baso % (Auto) 0.5, Neut # (Auto) 3.3, Lymph # (Auto) 1.4, [place] # (Auto) 0.6, Eos# (Auto) 0.3, Baso # (Auto) 0.0, Nucleated RBC % (auto) 0.2 07/28/22 06:54: PHA Creatinine Clear 90.35, Sodium 136, Potassium 4.2, Chloride 102, Carbon Dioxide 25.2, Anion Gap 13.0, BUN 11, Creatinine 1.00, Est GFR ( Amer) > 60, Est GFR (Non-Af Amer) > 60 07/27/22 21:04: POC Glucose 114 Exam Physical Exam Vital Signs: Temp Pulse Resp BP Pulse Ox O2 Del Method 97.3 F L 66 18 112/72 96 Room Air 07/28/22 16:18 07/28/22 17:24 07/28/22 17:24 07/28/22 17:24 07/28/22 17:24 07/28/22 17:24 Narrative: Const General: cooperative, comfortable, in no acute distress HEENT Head: normal to inspection Nose: external nose normal Mouth: oral mucosae normal and lip normal Eyes Conjunctivae: conjunctivae normal Neck Neck: normal visual inspection Chest inspection: healed sternotomy scar Resp Effort & Inspection: normal respiratory effort, not labored, no respiratory distress Auscultation: Diminished lung sounds, no wheezes Cardio Rate: normal rate Rhythm: regular rhythm Heart Sounds: S1 normal, S2 normal and no murmurs GI Inspection: non-distended Palpation: soft, not firm and nontender Neuro General: alert, awake and oriented x3. No obvious focal deficit Extrem General: no cyanosis, no pedal edema Psych Appearance: grossly normal Affect: normal affect Attitude: cooperative Discharge Plan Discharge Plan Patient Disposition: Home Activity: Ambulate as Tolerated Diet: Low-Cholesterol Additional Instructions: DISCHARGE INSTRUCTIONS FOR CARDIAC ESTIMATING MANAGER PHONE NUMBER OF YOUR PHYSICIAN: [phone] PROCEDURE: Heart Cath The following instructions have been prepared to help you care for yourself, or be cared for upon your return home. 1. You were given conscious sedation. Do not operate a vehicle, power tools, make important decisions, or drink alcohol for 24 hours. You might be drowsy orlight headed. Return to the Emergency Room if you have trouble breathing, walking or nausea and vomiting. 2. FOR BLEEDING: Apply continuous pressure to the site and call 911. 3. Operative Site Care: Keep the dressing clean and dry. You may change the dressing only if soiled or wet. You may remove the dressing the following morning. You may wash over the puncture site in the shower. If the puncture site is at the wrist no soaking for 3 days. Some bruising or slight swelling may be present. -Signs of infection are redness, warmth, swelling, getting more sore, colored drainage, fever or chills. -Should the arm or leg become cold, numb, blue or white, call the supervisor industrial garment immediately. 4. ACTIVITY: You are advised to go directly home from the hospital. Restrict your activities for the rest of the day. Resume light or normal activities tomorrow. Do not engage in any activity that will stress the puncture site. Avoid heavy lifting (over 15 lbs.), straining or bending at the catheter site for 48 hours after discharge. If the puncture site is at the wrist do not manipulate wrist for 24 hours and no lifting more than 3 lbs for 3 days. 5. DIET:You may eat your regular diet when you desire. 6. MEDICATIONS: Resume your daily prescription schedule. Prescriptions may be sent with you if needed. Use as directed. When taking pain medications, you may experience dizziness or drowsiness. Do not drink alcohol or drive when taking pain medications. 7. If you should experience episodes of angina e.g. chest discomfort, heaviness, tightness, pressure, burning, with or without radiation to the neck, jaws, arms, or back- Use 1 Nitrostat under your tongue every 5-10 minutes, and up to 3 tablets. If no relief- Call 911 and go to the nearest Emergency Room. -Notify the office for recurrent angina, chest pain or other concerns. You may NOT drive yourself home! Follow the medication instructions provided on your discharge. If the dosages and instructions on this sheet differ from the dosage and instructions on the bottle, follow the instructions on the bottle. [facility] is not responsible for incorrect prescription information provided by thepatient during their visit. Do not stop your medications without consulting your health care provider. Please take the list with you to your next doctor's appointment. Follow up with PCP regarding diabetes your HbA1C was 6.9. Follow up diabetesdiet Instructions: Carbohydrate Counting Diet, Angina (DC), Carb Counting for AdultsWith Diabetes, Diabetes and Diet Prescriptions: New isosorbide mononitrate 60 mg tablet extended release 24 hr 60 mg PO DAILY Qty: 30 3RF Continued aspirin 81 mg Tablet,Delayed Release (Dr/Ec) 81 mg PO DAILY tamsulosin [Flomax] 0.4 mg Capsule 0.4 mg PO DAILY metoprolol tartrate 25 mg Tablet 25 mg PO BID atorvastatin 80 mg Tablet 80 mg PO QPM 30 Days Qty: 30 12RF Brilinta 90 mg Tablet 90 mg PO BID 90 Days Qty: 180 3RF nitroglycerin [Nitrostat] 0.4 mg tablet, sublingual 0.4 mg sublingual Q5M PRN (Reason: chest pain) 30 Days Qty: 25 3RF Rx Instructions: do not exceed 3 doses per episode Discontinued isosorbide mononitrate 30 mg tablet extended release 24 hr 30 mg PO DAILY Qty: 30 6RF Follow Up: Jermaine Jackson DO [Active Staff - D.O.] - Consuelo Villasenor MD [Primary Care Provider] - Documented By: Jaswinder Flores MD 07/28/22 17 26 Signed By: <Electronically signed by Jaswinder Flores MD> 07/28/22 1731 [facility] Work Phone: Evaluation noteNo assessment information available [facility] Work Phone: Evaluation noteNo InformationNort [employer] Other Evaluation note* Diagnosis Onset Date Resolution Status Angina pectoris acute Chest pain acute COPD (chronic obstructive pulmonary disease) acute History of coronary artery bypass graft x [address] elevation myocardial infarction (STEMI) acute Non-ST elevation myocardial infarction (NSTEMI), initial care episode acute Stable angina acute [facility] Work Phone: Evaluation note* Diagnosis Bladder stones- Primary Other calculus in bladder Benign prostatic hyperplasia with lower urinary tract symptoms Preop examination- Primary Unspecified pre-operative examination Hypertension, unspecified type Coronary artery disease, unspecified vessel or lesion type, unspecified whether angina present, unspecified whether little shell tribe or transplanted heart Chronic obstructive pulmonary disease, unspecified COPD type (CMS-HCC) Preop examination Unspecified pre-operative examination Hypertension, unspecified type Coronary artery disease, unspecified vessel or lesion type, unspecified whether angina present, unspecified whether little shell tribe or transplanted heart Chronic obstructive pulmonary disease, unspecified COPD type (CMS-HCC) Preop examination Unspecified pre-operative examination Hypertension, unspecified type Coronary artery disease, unspecified vessel or lesion type, unspecified whether angina present, unspecified whether little shell tribe or transplanted heart Chronic obstructive pulmonary disease, unspecified COPD type (CMS-HCC) Bladder stones Other calculus in bladder Benign prostatic hyperplasia with lower urinary tract symptoms, symptom details unspecified [facility] Additional Instructions DISCHARGE INSTRUCTIONS FOR CARDIAC ESTIMATING MANAGER PHONE NUMBER OF YOUR PHYSICIAN: [phone] PROCEDURE: Heart Cath The following instructions have been prepared to help you care for yourself, or be cared for upon your return home. 1. You were given conscious sedation. Do not operate a vehicle, power tools, make important decisions, or drink alcohol for 24 hours. You might be drowsy or light headed. Return to the Emergency Room if you have trouble breathing, walking or nausea and vomiting. 2. FOR BLEEDING: Apply continuous pressure to the site and call 911. 3. Operative Site Care: Keep the dressing clean and dry. You may change the dressing only if soiled or wet. You may remove the dressing the following morning. You may wash over the puncture site in the shower. If the puncture site is at the wrist no soaking for 3 days. Some bruising or slight swelling may be present. -Signs of infection are redness, warmth, swelling, getting more sore, colored drainage, fever or chills. -Should the arm or leg become cold, numb, blue or white, call the supervisor industrial garment immediately. 4. ACTIVITY: You are advised to go directly home from the hospital. Restrict your activities for the rest of the day. Resume light or normal activities tomorrow. Do not engage in any activity that will stress the puncture site. Avoid heavy lifting (over 15 lbs.), straining or bending at the catheter site for 48 hours after discharge. If the puncture site is at the wrist do not manipulate wrist for 24 hours and no lifting more than 3 lbs for 3 days. 5. DIET:You may eat your regular diet when you desire. 6. MEDICATIONS: Resume your daily prescription schedule. Prescriptions may be sent with you if needed. Use as directed. When taking pain medications, you may experience dizziness or drowsiness. Do not drink alcohol or drive when taking pain medications. 7. If you should experience episodes of angina e.g. chest discomfort, heaviness, tightness, pressure, burning, with or without radiation to the neck, jaws, arms, or back- Use 1 Nitrostat under your tongue every 5-10 minutes, and up to 3 tablets. If no relief- Call 911 and go to the nearest Emergency Room. -Notify the office for recurrent angina, chest pain or other concerns. You may NOT drive yourself home! Follow the medication instructions provided on your discharge. If the dosages and instructions on this sheet differ from the dosage and instructions on the bottle, follow the instructions on the bottle. [facility] is not responsible for incorrect prescription information provided by the patient during their visit. Do not stop your medications without consulting your health care provider. Please take the list with you to your next doctor's appointment. Follow up with PCP regarding diabetes your HbA1C was 6.9. [facility] Phone: InstructionsNot on filedocumented in this encounter [employer] SystemInstructionsNot on filedocumented in this encounter [employer] SystemReason for referral (narrative)* Reason RLL mass Diagnosis 1 Lung mass (R91.8) Referral Organization [facility] Referring Provider First Name Mickie Referring Provider Last Name Pippa Referring Provider Specialty Pulmonary D iseases Referred Organization [facility] [place] Address [address],[place],[address] Referred Provider Specialty Intervention al Radiology Referral Priority Routine General Notes Ivonne Santos 01:14:58 PM > follow CT guided biopsy in [facility] Other Family History No Family History Records FoundUnknown Family Member Name Dates Details H/O heart artery stent: Brot her(V45.82, Z95.5) Status:Active FHx: myocardial infarction: Brother(V17.3, Z82.49) Status:Active Family history of malignant neoplasm: Sister(V16.9, Z80.9) Status:Active Family history of cerebrovas cular accident (CVA): Sister(V17.1, Z82.3) Status:Active Relationship Condition Age at Onset Recorded Date/T elsie Not Specified Hypertension Unknown sister Malignant neoplasm Unknown brother Coronary artery disease Unknown sister Cerebrovascular accident (CVA) Unknown Unknown Family Member Name Dates Details H/O heart artery stent: Brot her(V45.82, Z95.5) Status:Active FHx: myocardial infarction: Brother(V17.3, Z82.49) Status:Active Family history of malignant neoplasm: Sister(V16.9, Z80.9) Status:Active Family history of cerebrovas cular accident (CVA): Sister(V17.1, Z82.3) Status:Active Unknown Family Member Name Dates Details Family history of cerebrovas cular accident (CVA): Sister(V17.1, Z82.3) Status:Active Family history of malignant neoplasm: Sister(V16.9, Z80.9) Status:Active FHx: myocardial infarction: Brother(V17.3, Z82.49) Status:Active H/O heart artery stent: Brot her(V45.82, Z95.5) Status:Active Unknown Family Member Name Dates Details H/O heart artery stent: Brot her(V45.82, Z95.5) Status:Active FHx: myocardial infarction: Brother(V17.3, Z82.49) Status:Active Family history of malignant neoplasm: Sister(V16.9, Z80.9) Status:Active Family history of cerebrovas cular accident (CVA): Sister(V17.1, Z82.3) Status:Active Unknown Family Member Name Dates Details H/O heart artery stent: Brot her(V45.82, Z95.5) Status:Active FHx: myocardial infarction: Brother(V17.3, Z82.49) Status:Active Family history of malignant neoplasm: Sister(V16.9, Z80.9) Status:Active Family history of cerebrovas cular accident (CVA): Sister(V17.1, Z82.3) Status:Active Relationship Condition Age at Onset Recorded Date/T elsie Not Specified Hypertension Unknown sister Malignant neoplasm Unknown Coronary artery disease Unknown brother Coronary artery disease Unknown sister Cerebrovascular accident (CVA) Unknown Malignant neoplasm Unknown Unknown Family Member Name Dates Details H/O heart artery stent: Brot her(V45.82, Z95.5) Status:Active FHx: myocardial infarction: Brother(V17.3, Z82.49) Status:Active Family history of malignant neoplasm: Sister(V16.9, Z80.9) Status:Active Family history of cerebrovas cular accident (CVA): Sister(V17.1, Z82.3) Status:Active Unknown Family Member Name Dates Details H/O heart artery stent: Brot her(V45.82, Z95.5) Status:Active FHx: myocardial infarction: Brother(V17.3, Z82.49) Status:Active Family history of malignant neoplasm: Sister(V16.9, Z80.9) Status:Active Family history of cerebrovas cular accident (CVA): Sister(V17.1, Z82.3) Status:Active Unknown Family Member Name Dates Details H/O heart artery stent: Brot her(V45.82, Z95.5) Status:Active FHx: myocardial infarction: Brother(V17.3, Z82.49) Status:Active Family history of malignant neoplasm: Sister(V16.9, Z80.9) Status:Active Family history of cerebrovas cular accident (CVA): Sister(V17.1, Z82.3) Status:Active Unknown Family Member Name Dates Details Family history of cerebrovas cular accident (CVA): Sister(V17.1, Z82.3) Status:Active Family history of malignant neoplasm: Sister(V16.9, Z80.9) Status:Active FHx: myocardial infarction: Brother(V17.3, Z82.49) Status:Active H/O heart artery stent: Brot her(V45.82, Z95.5) Status:Active Unknown Family Member Name Dates Details H/O heart artery stent: Brot her(V45.82, Z95.5) Status:Active FHx: myocardial infarction: Brother(V17.3, Z82.49) Status:Active Family history of malignant neoplasm: Sister(V16.9, Z80.9) Status:Active Family history of cerebrovas cular accident (CVA): Sister(V17.1, Z82.3) Status:Active Unknown Family Member Name Dates Details H/O heart artery stent: Brot her(V45.82, Z95.5) Status:Active FHx: myocardial infarction: Brother(V17.3, Z82.49) Status:Active Family history of malignant neoplasm: Sister(V16.9, Z80.9) Status:Active Family history of cerebrovas cular accident (CVA): Sister(V17.1, Z82.3) Status:Active Unknown Family Member Name Dates Details H/O heart artery stent: Brot her(V45.82, Z95.5) Status:Active FHx: myocardial infarction: Brother(V17.3, Z82.49) Status:Active Family history of malignant neoplasm: Sister(V16.9, Z80.9) Status:Active Family history of cerebrovas cular accident (CVA): Sister(V17.1, Z82.3) Status:Active Unknown Family Member Name Dates Details Family history of cerebrovas cular accident (CVA): Sister(V17.1, Z82.3) Status:Active Family history of malignant neoplasm: Sister(V16.9, Z80.9) Status:Active FHx: myocardial infarction: Brother(V17.3, Z82.49) Status:Active H/O heart artery stent: Brot her(V45.82, Z95.5) Status:Active Unknown Family Member Name Dates Details H/O heart artery stent: Brot her(V45.82, Z95.5) Status:Active FHx: myocardial infarction: Brother(V17.3, Z82.49) Status:Active Family history of malignant neoplasm: Sister(V16.9, Z80.9) Status:Active Family history of cerebrovas cular accident (CVA): Sister(V17.1, Z82.3) Status:Active Unknown Family Member Name Dates Details H/O heart artery stent: Brot her(V45.82, Z95.5) Status:Active FHx: myocardial infarction: Brother(V17.3, Z82.49) Status:Active Family history of malignant neoplasm: Sister(V16.9, Z80.9) Status:Active Family history of cerebrovas cular accident (CVA): Sister(V17.1, Z82.3) Status:Active Chief Complaint and Reason for Visit Chief Complaint r91.1 R91.8 recheck pneumonia recheck pneumo j44.9 R91.8 Chief Complaint R91.8 Angina, CAD Chief Complaint R91.8 Angina, CAD Angina, CAD Chief Complaint Angina, CAD Angina, CAD Chest Pain Reason for Visit Angina pectoris Chest pain COPD (chronic obstructive pulmonary disease) History of coronary artery bypass graft x [address] elevation myocardial infarction (STEMI) Non-ST elevation myocardial infarction (NSTEMI), initial care episode Stable angina Chief Complaint m54.41 Advance Directives No Advanced Directives Records Found Advance Directive Response Recorded Date/ Time Advance Directives No April 27 8:51am Latest Code Status on File Code Status Date Activated Date Inactivated Comments Full Code 11/30/2022 7:27 AM 12/06/2022 6:02 PM Latest Code Status on File Code Status Date Activated Date Inactivated Comments Full Code 11/30/2022 7:27 AM 12/06/2022 6:02 PM Chief Complaint * OVERDUE NEEDS RX. * Patient is a 61-year-old gentleman returns for follow-up. He is doing well he has no cardiovascularcomplaints. He does have exertional dyspnea and back discomfort when lying down this is secondary to an enlarging pulmonary mass details of which are been reviewed with patient and EMR. 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 He has had previous CABG with subsequent inferior OK in March 2021 with primary revascularization of the vein graft to the RCA with drug-eluting stent with preserved left ventricular function. He * He is currently working walking as he states approximately 8 miles a day without any issues. * We reviewed his coronary anatomy and intervention and cath report he remains on appropriate guideline directed medical therapies * Recommendations, he can discontinue his Brilinta on April 28, continue all other medications, will follow-up in 8 months otherwise if in fact he needs partial pneumonectomy in the future from a cardiovascular standpoint we could potentially clear him for this this year. * 61-year-old gentleman returns annual follow-up overall is doing well without any cardiovascular complaints. 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 He needs preoperative clearance prior to surgical resection from my standpoint he is clear. 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 * Last catheterization from this June 2022 revealed widely patent grafts x3, widely patent stentin the vein graft to the RCA, and preserved left ventricular function with ejection fraction of 50 to 55%. * He has underlying COPD, former smoker, the above-mentioned previous non-STEMI, remote CABG, remote stenting of the vein graft to the RCA, he is mildly overweight. * Recommendations he is cleared for his intended pulmonary mass resection with thoracic surgery, he will need to hold his clopidogrel and aspirin for 5 days prior to surgical intervention, reinitiate thereafterwards and will follow-up in 1-year-old Summary Purpose Reason for Referral Specialty Diagnoses / Procedures Referred By Contac t Referred To Contact Diagnoses Preop examination Hypertension, unspecified type Coronary artery disease, unspecified vessel or lesion type, unspecified whether angina present, unspecified whether little shell tribe or transplanted heart Chronic obstructive pulmonary disease, unspecified COPD type ([facility]) Procedures ECG 12 lead Isaías Vance MD [address] [place] [address] Referral ID Status Reason Start Date Expiration Date V isits Requested Visits Authorized [id number] Pending Review 10/18/2023 10/17/2024 1 1 Additional Source Comments Care Teams (unrecognized sec tion and content) Team Status: Inactive Member Role Status Dates Consuelo Villasenor MD Primary Care Provider Active Grupo Daniel Jr, DO Attending Provider Active Team Status: Inactive Member Role Status Dates Consuelo Villasenor MD Primary Care Provider Active Mickie Das MD Attending Provider Active Team Status: Inactive Member Role Status Dates Consuelo Villasenor MD Primary Care Provider Active Demetrio Floyd MD Attending Provider Active Team Status: Inactive Member Role Status Dates Consuelo Villasenor MD Primary Care Provider Active Mickie Das MD Attending Provider Active Grupo Daniel Jr, DO Referring Provider Active Team Status: Active Member Role Status Dates Consuelo Villasenor MD Primary Care Provider Active Team Status: Inactive Member Role Status Dates Consuelo Villasenor MD Primary Care Provider Active W Catracho Jackson DO Attending Provider Active Team Status: Inactive Member Role Status Dates Consuelo Villasenor MD Primary Care Provider Active Jaswinder Flores MD Admit Provider, Attending Provi kerwin Active Aziza Maldonado RN Other Provider Active W Catracho Jackson DO Other Provider Active Frances Gayle MD Other Provider Active Walt Becker MD Other Provider Active Judy Kaba MD Other Provider Active Ottoniel Valdovinos MD Other Provider Active Caterina Bui APRN Other Provider Active Sahra Diez MD Other Provider Active Blayne Aguilera MD Other Provider Active Percy Wei MD Other Provider Active Team Status: Active Member Role Status Dates Shaikh Lexi MD Primary Care Provider Active Team Status: Inactive Member Role Status Dates Shaikh Lexi MD Primary Care Provider, Attending Pr ovider Active Wallpaper Scraper Relationship Specialty Start Date End Date Shaikh Elliott MD [address] [place] [address] PCP - General Internal Medicine 10/31/22 Wallpaper Scraper Relationship Specialty Start Date End Date Shaikh Elliott MD [address] [place] [address] PCP - General Internal Medicine 10/31/22 Wallpaper Scraper Relationship Specialty Start Date End Date Shaikh Elliott MD [address] [place] [address] PCP - General Internal Medicine 10/31/22 Goals (unrecognized section and content) Goals may be documented in a n alternate sectionNo InformationNo InformationNo InformationNo InformationNo InformationGoals may be documented in an alternate sectionNo InformationGoals may be documented in an alternate sectionNo Information (unrecognized sect ion and content) No Status Records FoundNo Status Records FoundNo Status Records FoundNo Status Records FoundNo Status Records FoundNo Status Records FoundNo Status Records FoundNo Status Records Found INFORMATION SOURCE (unrecogn ized section and content) DATE CREATED AUTHOR 04/06/2022 [facility] DATE CREATED AUTHOR AUTHOR'S ORGANIZ ATION 07/31/2022 [facility] DATE CREATED AUTHOR AUTHOR'S ORGANIZ ATION 10/04/2022 [facility] DATE CREATED AUTHOR AUTHOR'S ORGANIZ ATION 10/05/2022 [employer] DATE CREATED AUTHOR AUTHOR'S ORGANIZ ATION 08/09/2023 [facility] DATE CREATED AUTHOR AUTHOR'S ORGANIZ ATION 09/06/2023 [facility] DATE CREATED AUTHOR AUTHOR'S ORGANIZ ATION 10/12/2023 DATE CREATED AUTHOR AUTHOR'S ORGANIZ ATION 11/11/2023 [facility] REASON FOR VISIT (unrecogniz ed section and content) Referred by Dr. Villasenor for Lung Mass2 wk f/u Lung Mass, COPD, VASQUEZ, CADNo Informationpain3 mo f/uNeeds call back from office6 mo f/u Atypical Mycobacterium Infection, Non Small Cell Lung Cancer, COPD FOR RECORDS PERTAINING TO PATIENTS WHO ARE OR HAVE BEEN ENROLLED IN A CHEMICAL DEPENDENCY/SUBSTANCEABUSE PROGRAM, SOME INFORMATION MAY BE OMITTED. This clinical summary was aggregated from multiple sources. Caution should be exercised in using it in the provision of clinical care. This summary normalizes information from multiple sources, and as a consequence, information in this document may materially change the coding, format and clinical context of patient data. In addition, data may be omitted in some cases. CLINICAL DECISIONS SHOULD BE BASED ON THE PRIMARY CLINICAL RECORDS. [facility] [employer] [facility]. provides no warranty or guarantee of the accuracy or completeness of information in this document.
[2023-11-19 07:57] VITALS: BP 125/74; PULSE 67; RESP 16; TEMP 36.3; O2SAT 97
[2023-11-19 08:48] VITALS: BP 126/75; BP 136/88; PULSE 80; RESP 18; O2SAT 97
--- NOTE | 2023-11-19 08:52 | P.ON_ITS ---
Date of procedure: 11/19/23 Pre-op diagnosis: Lumbar stenosis with neurogenic claudication Post-op diagnosis: same as pre-op Procedure: Procedure: Right L4-5, L5-S1 transforaminal epidural steroid injection Medications: Bupivacaine 0.25% 2cc, lidocaine 2% 1cc, kenalog 80mg The patient was seen and examined in the preoperative holding area.? Informed consent was obtained and placed on the chart.? Patient was brought to the medical procedure unit and placed in the prone position where a timeout was completed verifying the correct patient, procedure site, position, and planned special equipment using sterile aseptic technique.? Under direct fluoroscopic visualization a 25-gauge Quincke tipped spinal needle was advanced to the designated neural foramen where contrast dye was injected to show adequate spread.? The needle was inserted at level right L4-5. There was no evidence of vascular or adverse uptake.? Epidural spread was appreciated.? The above- mentioned injectate was then placed in a 1.5 mL aliquot preceded by negative aspiration.? The needle was removed. The needle was inserted and the procedure repeated at level right L5-S1.? The surgery site was covered.? Patient was taken to the postprocedural recovery area and monitored for an appropriate length of time before found suitable for discharge in the accompaniment of a responsible adult. Anesthesia: Local Surgeon: Mariah Whiting Pathology: none sent Condition: stable Disposition: no change
[2023-11-19] MEDS: 0.9 % SODIUM CHLORIDE 10 ML INJ (08:56)
[2023-11-19] MEDS: IOHEXOL 240 MG/ML - 10 ML VIAL 12 MG INJ (08:57)
[2023-11-19] MEDS: BUPIVACAINE HCL 0.25% PF 25 MG/10 ML VIAL INJ (08:57)
[2023-11-19] MEDS: LIDOCAINE HCL 2% PF 100 MG/5 ML VIAL 3 ML INJ (08:57)
[2023-11-19] MEDS: TRIAMCINOLONE ACETONIDE 40 MG/ML VIAL 80 MG INJ (08:58)
== END 2023-11-19 08:58 | disposition home or self-care (01) ==
PROVIDERS: PCP Internal Medicine; Visit Provider Anesthesiology
DX: M48.062 Spinal stenosis, lumbar region with neurogenic claudication (principal)
CPT/HCPCS: 64483; 64484; J0665; J3301; Q9966

== ENCOUNTER 2023-12-31 21:36 | Outpatient (REF) | payer BC, SELFPAY ==
--- OUTSIDE RECORDS SUMMARY | 2023-12-31 21:40 | XMS_ITS | CCD ---
Author Name Unknown Address [address] [facility] [address] [place] [address] Organization [facility] Care Team Providers Care Leather Patcher Name Role Phone Unknown, Referring Provider Unavailable Unav ailable Unavailable Unavailable MD Consuelo Villasenor Primary Care Provider MD Mickie Das Attending Provider MD Demetrio Floyd Attending Provider DO Grupo Daniel Jr Attending Provider UnaDO Grupo Cast Jr Referring Provider Lesa carter None, No PCP Unavailable Unavailable Consuelo Villasenor Unavailable Mickie Das Unavailable Unavailable Unavailable MD Consuelo Villasenor Primary Care Provider MD Mickie Das Attending Provider DO Jermaine Jackson Attending Provider Unavailable Unavailable Unavailable Unavailable MD Consuelo Villasenor Primary Care Provider MD Jaswinder Flores Admit Provider MD Jaswinder Flores Attending Provider [phone] NANDO Maldonado [facility] Other Provider Unavailable DO Jermaine Jackson Other Provider MD Frances Gayle Other Provider MD Walt Becker Other Provider [phone] MD Judy Kaba Other Provider MD Ottoniel Valdovinos Other Provider BOBY Oneill Other Provider MD Sahra Diez Other Provider MD Blayne Aguilera Other Provider MD Percy Wei Other Provider DR ADRIANA NAGY Attending Unavailable LILO, DR WRIGHT Admitting Unavailable MISC, DR GUERRA Primary Care Unavailable ZIEBER, DR SAUNDRA Naylor Consulting Unavailable LILO, DR WRIGHT Consulting Unavailable SABINO COLES Admitting Unavailable MISC, DR GUERRA Primary Care Unavailable ZIEBER, DR SAUNDRA Naylor Consulting Unavailable MARSHAL, SABINO Attending Unavailable MARSHAL, SABINO Consulting Unavailable Shaikh Elliott Unavailable Manuel, Dr. Walt Hayden Referring Unava ilable Manuel, Dr. Walt Hayden Attending Unava ilable Manuel, Dr. Walt Hayden Attending Unava ilable Jacklyn, [facility] Unavai lable Manuel, Dr. Walt Hayden Referring Un[facility] Manuel, Dr. Walt Hayden Attending Un[facility] Unav[facility]able Jacklyn, [facility] Unavai lable Manuel, Dr. Walt Hayden Attending Unava ilable Manuel, Dr. Walt Hayden Attending Unava ilable Manuel, Dr. Walt Hayden Referring Unava ilable UNKNOWN, [facility] Primary Care Unavailable Manuel, Dr. Walt Hayden Referring Unava ilable Manuel, Dr. Walt Hayden Attending Unava ilable Unavailable Unavailable MD Jens Elliott Primary Care Provider MD Jens Elliott Attending Provider Shaikh Elliott Attending Unavailable Shaikh Elliott Primary Care Unavailable Shaikh Elliott Admitting Unavailable Shaikh Elliott MD Primary Care Provider Johanne RODRIGUEZ, Mariah Saldivar Attending Unavailable Johanne RODRIGUEZ, Mariah Saldivar Attending Unavailable WALT JACKSON Attending Unavailable [facility] Primary Care Unavailable [facility] Referring Unavailable [facility] Primary Care Unavailable ISAÍAS VANCE Attending Unavailable ISAÍAS VANCE Referring Unavailable [facility] Primary Care Unavailable ISAÍAS VANCE Referring Unavailable [facility] Primary Care Unavailable ISAÍAS VANCE Attending Unavailable ISAÍAS VANCE Referring Unavailable [facility] Primary Care Unavailable REJI ROMERO Admitting Unavailable REJI ROMERO Attending Unavailable REJI ROMERO Referring Unavailable [facility] Primary Care Unavailable GISSELLE CARVER Attending Unavailable [facility] Primary Care Unavailable REJI ROMERO Referring Unavailable [facility] Primary Care Unavailable AZIZA LYNCH Attending Unavailable [facility] Referring Unavailable [facility] Primary Care Unavailable MARCIE GREEN I Attending Unavailable [facility] Referring Unavailable [facility] Primary Care Unavailable VEENA CASIANO Attending Unavailable [facility] Referring Unavailable [facility] Primary Care Unavailable Medications Current Medications Medication Drug Class(es) [...] day Active finasteride 5 mg oral tablet (2 sources) 5-alpha Reductase Inhibitor Start: 12-24-2023 take 1 tablet by mouth in the morning finasteride (PROSCAR) 5 mg tablet Take 1 tablet (5 mg total) by mouth in the morning. 30 tablet 6 12/24/2023 Active take 1 tablet by francisco th every twenty-four hours Finasteride 5 MG 1 tablet Orally Once a day Active levoFLOXacin 500 mg oral tablet (4 sources) Quinolone Antimicrobial Start: 11-28-2023 End: 12-05-2023 take 1 tablet by mouth in the morning levoFLOXacin (LEVAQUIN) 500 mg tablet Take 1 tablet (500 mg total) by mouth in the morning for 7 days. 7 tablet 0 11/28/2023 12/05/2023 Active Start: 10-30-2023 End: 11-05-2023 take 1 tablet by mouth in the morning levoFLOXacin (LEVAQUIN) 500 mg tablet Take 1 tablet (500 mg total) by mouth in the morning for 5 days. 5 tablet 0 10/30/2023 11/05/2023 Discontinued (Therapy completed) metoprolol tartrate 25 mg oral tablet (20 sources) beta-Adrenergic Rudolph Start: 04-27-2021 take 1 tablet by mouth twice daily metoprolol tartrate (LOPRESSOR) 25 mg tablet TAKE 1 TABLET BY MOUTH TWICE A DAY 180 tablet 3 02/12/2023 Active nitroglycerin 0.4 mg sublingual tablet (18 sources) Nitrate Vasodilator Start: 04-29-2021 Nitroglycerin (Nitrostat) 0.4 mg tablet, sublingual Active 0.4 MG SUBLINGUAL Q5M 25 April 29, 2021 12:00am do not exceed 3 doses per episode tamsulosin hydrochloride 0.4 mg oral capsule (20 sources) alpha-Adrenergic Rudolph Start: 12-31-2023 take 1 capsule by mouth once daily in the evening tamsulosin (FLOMAX) 0.4 mg capsule TAKE 1 CAPSULE BY MOUTH EVERY DAY IN THE EVENING 90 capsule 1 12/31/2023 Active Start: 04-27-2021 End: 03-03-2024 take 1 capsule by mouth at bedtime tamsulosin (FLOMAX) 0.4 mg capsule Take 1 capsule (0.4 mg total) by mouth in the morning and at bedtime for 180 days. 60 capsule 5 09/05/2023 03/03/2024 Active ticagrelor 90 mg oral tablet (18 sources) Start: 04-29-2021 take 1 tablet by mouth twice daily [...] 10/25/2020 Active clopidogrel 75 mg oral tablet (17 sources) P2Y12 Platelet Inhibitor Start: 10-04-2022 take 1 tablet by mouth once daily Clopidogrel Bisulfate 75 MG Oral Tablet TAKE 1 TABLET BY MOUTH EVERY DAY Quantity: 90 Refills: 3 Ordered: 07-Jun-2023 Caterina Veliz Start : 04-Oct-2022 Active 24 hr isosorbide mononitrate 60 mg extended release oral tablet (20 sources) Nitrate Vasodilator Start: 07-28-2022 take 1 [...] 12, 2022 12:00am July 28, 2022 5:24pm ondansetron 4 mg disintegrating oral tablet (1 [...] site (1 source) Mycobacterial infection, unspecified Episodic Cancer of bronchus; lung (9 sources) Non-small cell lung cancer; Translations: [Malignant neoplasm of unspecified part of unspecified bronchus or lung] Onset: 11-10-2021 Chronic Chronic obstructive pulmonary disease and bronchiectasis (20 sources) Chronic obstructive lung disease; Translations: [Chronic obstructive pulmonary disease, unspecified] Onset: 04-09-2017 Resolved: 03-08-2022 Chronic Complication of device; implant or graft (2 sources) Atherosclerosis of coronary artery bypass graft(s) without angina pectoris; Translations: [Atherosclerosis of coronary artery bypass graft(s) without angina pectoris] Onset: 10-30-2023 Chronic Coronary atherosclerosis and other heart disease (20 sources) Coronary arteriosclerosis; Translations: [Coronary atherosclerosis of unspecified type of vessel, sokaogon or graft] Onset: 03-05-2017 Resolved: 11-15-2021 Chronic Coronary atherosclerosis and other heart disease (6 sources) Presence of aortocoronary bypass graft; Translations: [Personal history of surgery to heart and great vessels, presenting hazards to health] Onset: 07-28-2022 07-28-2022 Episodic Disorders of lipid metabolism (20 sources) Hyperlipidemia; Translations: [Other and unspecified hyperlipidemia] Onset: 07-18-2017 07-18-2017 Chronic Essential hypertension (2 sources) Hypertensive disorder; Translations: [Essential (primary) hypertension] Onset: 10-24-2023 10-18-2023 Chronic Genitourinary symptoms and ill-defined conditions (5 sources) Retention of urine; Translations: [Retention of urine, unspecified] Onset: 11-28-2023 11-30-2023 Episodic Hyperplasia of prostate (10 sources) Benign prostatic hyperplasia; Translations: [Benign prostatic hyperplasia with lower urinary tract symptoms] Onset: 12-21-2020 09-13-2023 Chronic Nonspecific chest pain (11 sources) Chest pain; Translations: [Chest pain, unspecified] Onset: 07-26-2022 07-26-2022 Episodic Other aftercare (1 source) [facility] (current) use of aspirin; Translations: [SKILLED NURSING CURRENT USE OF ASPIRIN] Onset: 07-28-2022 Episodic Other aftercare (1 source) Other long term care administrator (current) drug therapy; Translations: [OTH SKILLED NURSING CURRENT DRUG THERAPY] Onset: 07-28-2022 Episodic Other diseases of bladder and urethra (1 source) Bladder outlet obstruction; Translations: [Bladder-neck obstruction] Onset: 12-26-2023 12-26-2023 Chronic Other lower respiratory disease (6 sources) Solitary nodule of lung; Translations: [Solitary pulmonary nodule] Episodic Other lower respiratory disease (1 source) Shortness of breath; Translations: [SHORTNESS OF BREATH] Onset: 07-28-2022 Episodic Other nutritional; endocrine; and metabolic disorders (8 sources) Body mass index 30+ - obesity; Translations: [Body Mass Index 30.0-30.9, adult] Onset: 12-20-2021 12-20-2021 Chronic Other nutritional; endocrine; and metabolic disorders (16 sources) Obesity; Translations: [Obesity, unspecified] Chronic Unclassified (1 source) CONTACT W/AND (SUSP) EXPOS COVID-19; Translations: [CONTACT W/AND (SUSP) EXPOS COVID-19] Onset: 07-28-2022 Unclassified (1 source) Lumbago with sciatica, right side; Translations: [Lumbago with sciatica, right side] Onset: 08-02-2023 Unclassified (1 source) Bladder stones [N21.0] Onset: 11-05-2023 Unclassified (1 source) Bladder Problem Onset: 12-04-2023 Past or Other Problems Problem Classification Problem Date Documented Date Episodic/Chronic Calculus of urinary tract (18 sources) Calculus in bladder; Translations: [Kidney stone] Onset: 05-31-2022 09-06-2023 Episodic Mood disorders (7 sources) Mood disorders Onset: 07-18-2017 07-18-2017 Mycoses (1 source) Unspecified mycosis Onset: 03-08-2022 Resolved: 03-08-2022 Episodic Other lower respiratory disease (20 sources) Lung mass; Translations: [Swelling, mass, or lump in chest] Onset: 04-09-2017 10-25-2021 Episodic Other lower respiratory disease (13 sources) Dyspnea on exertion; Translations: [Dyspnea, unspecified] Onset: 05-09-2017 05-09-2017 Episodic Other lower respiratory disease (11 sources) Other nonspecific abnormal finding of lung field; Translations: [Swelling, mass, or lump in chest] Onset: 11-15-2021 Resolved: 03-08-2022 Episodic Other lower respiratory disease (1 source) Dyspnea, unspecified Onset: 11-15-2021 Resolved: 11-15-2021 Episodic Other lower respiratory disease (7 sources) Cough; Translations: [Cough] Onset: 09-24-2017 09-24-2017 Episodic Other screening for suspected conditions (not mental disorders or infectious disease) (7 sources) Raised prostate specific antigen; Translations: [Elevated prostate specific antigen [PSA]] Onset: 09-05-2023 09-06-2023 Episodic Other upper respiratory infections (7 sources) Acute frontal sinusitis; Translations: [Acute frontal sinusitis, unspecified] Onset: 09-24-2017 09-24-2017 Episodic Pneumonia (except that caused by tuberculosis or sexually transmitted disease) (1 source) Pulmonary mycobacterial infection Onset: 03-08-2022 Resolved: 03-08-2022 Episodic Residual codes; unclassified (7 sources) H/O: asbestos exposure; Translations: [Contact with and (suspected) exposure to asbestos] Onset: 04-09-2017 04-09-2017 Episodic Screening and history of mental health and substance abuse codes (20 sources) Ex-smoker; Translations: [Personal history of tobacco use] Onset: 03-05-2017 Resolved: 12-22-2019 07-17-2022 Episodic Comment on above: QUIT 15 YEARS AGO 20 06- SMOKED ABOUT 2 PPD; Results Test Name Value Interpretation Reference Range Facility Measure post void residualon 11-28-2023 [email or web address] POCT Urinalysis Auto, W/O Mi croscopyon 01-31-2024 External Poct Urine Blood Large [facility] External Poct Urine Glucose Negative [facility] External Poct Urine Ketones Trace [facility] External Poct Urine Leukocyte Esterase Trace [facility] External Poct Urine Nitrite Negative [facility] External Poct Urine Ph 6.0 [facility] External Poct Urine Protein 2+ [facility] URINE CULTUREon 11-28-2023 Bacteria identified Cx Nom (U) SPECIMEN NOTES URINE RECEIVED WITHOUT PRESERVATIVE CULTURE RESULTS <10,000 ORGANISMS/ML NORMAL URO GENITAL ROBERTO URINE RECEIVED WITHOUT PRESERVATIVE-DELAYS IN TRANSPORT MAY AFFECT RESULTS.INTERPRET WITH CAUTION AND CLINICAL CORRELATION IS RECOMMENDED. Normal [facility] Comment on above: Performed By: #### 6 30-4 #### [facility] ([id number]) [address] [facility] [place] [address] [facility] ([id number]) [address] [place] [address], [address] [place] [address] KIDNEY STONE ANALYSISon RESULT COMMENT See Note Normal [facility] Comment on above: Result Comment: NOTE For stones containing calcium oxalate, calcium phosphate, and/or uric acid, a 24 hr urinary supersaturation test may help detect underlying risk factors for this type of stone formation and provide guidance for a stone prevention strategy. ADDITIONAL INFORMATION This test was developed and its performance characteristics determined by [facility] in a manner consistent with CLIA requirements. This test has not been cleared or approved by the U.S. Food and Drug Administration. Test Performed by: [facility] [place] [place] [address] Casket Trimmer: Walt Shafer M.D. Ph.D.; CLIA# [id number] SOURCE: Bladder Normal [facility] Comment on above: Result Comment: Indy ected on 11/08 AT 1412: Previously reported as BLADDER Stone Interpretation See Note Normal [facility] Comment on above: Result Comment: NOTE 50% Calcium oxalate monohydrate. 30% Calcium phosphate (apatite). 20% Calcium oxalate dihydrate. BASIC METABOLIC PANLon 10-24 Anion gap [Moles/Vol] 6 mmol/L Normal 5-15 [facility] Comment on above: Performed By: #### 7 18-7, BMP #### [facility] ([id number]) [address], [address] [place] [address] Calcium [Mass/Vol] 9.0 mg/dL Normal 8.5-10.5 [facility] Comment on above: Performed By: #### 7 18-7, BMP #### [facility] ([id number]) [address], [address] [place] [address] Chloride [Moles/Vol] 103 mmol/L Normal 98-109 [facility] Comment on above: Performed By: #### 7 18-7, BMP #### [facility] ([id number]) [address], [address] [place] [address] CO2 [Moles/Vol] 29 mmol/L Normal 22-32 [facility] Comment on above: Performed By: #### 7 18-7, BMP #### [facility] ([id number]) [address], [address] [place] [address] Creatinine [Mass/Vol] 0.91 mg/dL Normal 0.60-1.30 [facility] Comment on above: Result Comment: METH OD TRACEABLE TO IDMS STANDARD Performed By: #### 7 18-7, BMP #### [facility] ([id number]) [address], [address] [place] [address] eGFR (CKD-EPI) NON-RACE DEPENDENT >90 Normal >59 [facility] Comment on above: Result Comment: Reported eGFR is based on the CKD-EPI 2020 equation that does not use a race coefficient. Performed By: #### 7 18-7, BMP #### [facility] ([id number]) [address], [address] [place] [address] Glucose [Mass/Vol] 169 mg/dL High 65-99 [facility] Comment on above: Performed By: #### 7 18-7, BMP #### [facility] ([id number]) [address], [address] [place] [address] Potassium [Moles/Vol] 4.3 mmol/L Normal 3.5-5.0 [facility] Comment on above: Performed By: #### 7 18-7, BMP #### [facility] ([id number]) [address], [address] [place] [address] Sodium [Moles/Vol] 138 mmol/L Normal 134-146 [facility] Comment on above: Performed By: #### 7 18-7, BMP #### [facility] ([id number]) [address], [address] [place] [address] Urea nitrogen [Mass/Vol] 14 mg/dL Normal 5-27 [facility] Comment on above: Performed By: #### 7 18-7, BMP #### [facility] ([id number]) [address], [facility] [address] [place] [address] Basic Metabolic Panelon 12-2 Anion gap [Moles/Vol] 6 mmol/L 5 - 15 mmol/L [facility] Calcium [Mass/Vol] 9.0 mg/dL 8.5 - 10. 5 mg/dL [facility] Chloride [Moles/Vol] 103 mmol/L 98 - 10 9 mmol/L [facility] CO2 [Moles/Vol] 29 mmol/L 22 - 32 mmol/L [facility] Creatinine [Mass/Vol] 0.91 mg/dL 0.60 - 1.30 mg/dL [facility] Comment on above: METHOD TRACEABLE TO IDMS STANDARD eGFR (CKD-EPI)non-race dependent - PINF [facility] Comment on above: Reported eGFR is based on the CKD-EPI 2020 equation that does not use a race coefficient. Glucose [Mass/Vol] 169 mg/dL High 65 - 99 mg/dL [facility] Interpretation and review of laboratory results Abnormal [facility] Potassium [Moles/Vol] 4.3 mmol/L 3.5 - 5.0 mmol/L [facility] Sodium [Moles/Vol] 138 mmol/L 134 - 146 mmol/L [facility] Urea nitrogen [Mass/Vol] 14 mg/dL 5 - 27 mg/dL [facility] ECG 12 leadon 10-24-2023 TRACEMASTERVUE [facility] HEMOGLOBINon 10-24-2023 Hemoglobin (Bld) [Mass/Vol] 14.1 g/dL Normal 13.0-17.0 [facility] Comment on above: Performed By: #### 7 18-7, BMP #### [facility] ([id number]) [address], [address] [place] [address] Hemoglobinon 10-24-2023 Hemoglobin (Bld) [Mass/Vol] 14.1 g/dL 13.0 - 17.0 g/dL [facility] Hemoglobin (Bld) [Mass/Vol]o n 10-24-2023 [facility] URINALYSISon 10-24-2023 Bilirubin Ql (U) Negative Normal NEG [facility] BLOOD/HGB Trace Abnormal NEG [facility] CA OXALATE CRYSTALS PRESENT Abnormal NONE [facility] Color (U) YELLOW Normal YELLOW [facility] Glucose Ql (U) Negative Normal NEG [facility] Ketones Ql (U) Negative Normal NEG [facility] Leukocyte esterase Test strip Ql (U) Negative Normal NEG [facility] Nitrite Ql (U) Negative Normal NEG [facility] pH (U) 6.0 [pH] Normal 5.0-8.5 [facility] Protein Ql (U) Negative Normal NEG [facility] R.B.CELLS 21 /hpf High 0-5 [facility] Specific gravity (U) [Rel density] 1.021 Normal 1.003-1.03 5 [facility] TURBIDITY CLEAR Normal CLEAR [facility] Urobilinogen (U) [Mass/Vol] mg/dL Normal <1.1 [facility] W.B.CELLS 3 /hpf Normal 0-5 [facility] URINE CULTUREon 10-24-2023 Bacteria identified Cx [...] TRIMETH/SULFAMETHOXAZOLE S <=1/19 F Susceptible [facility] Comment on above: Performed By: #### 6 30-4 #### [facility] ([id number]) [address] [address], [address] [place] [address] XR CHEST 2 VWSon 10-24-2023 XR CHEST [...] Chacorta Singleton MD on 10/24/2023 11:15 AM Normal [facility] XR Chest PA and Lateralon PA and lateral chest : HISTORY: Preoperative exam. Anesthesia clearance. 2 views the chest are obtained. There is a small right pleural effusion. Lungs otherwise clear. No consolidation. The cardiac contour is stable in comparison with 01/10/2023. No pneumothorax. IMPRESSION: Small right pleural effusion. Finalized by Chacorta Singleton MD on 10/24/2023 11:15 AM ALVARAChacorta Archer M D - 10/24/2023 PA and lateral chest: HISTORY: Preoperative exam. Anesthesia clearance. 2 views the chest are obtained. There is a small right pleural effusion. Lungs otherwise clear. No consolidation. The cardiac contour is stable in comparison with 01/10/2023. No pneumothorax. IMPRESSION: Small right pleural effusion. Finalized by Chacorta Singleton MD on 10/24/2023 11:15 AM Div[facility] Radiology Study observation (narrative) Divided XR Chest PA and LateralOrder ed By: Chacorta Singleton on 10-24-2023 Divided Work Phone: XR pre/post mri xrayon 08-02 XR pre/post mri xray [facility] Main [place] [address] [place] [address] MRI Report Signed Patient: Zaid Mello MR#: [id number] : 1960 Acct:[id number] Age/Sex: 62 / M ADM Date: 08/02/23 Loc: Room: Type: [facility] Attending Dr: Shaikh Lexi RODRIGUEZ Copies to: Shaikh Lexi MD Ordering Provider: Shaikh Lexi MD Date of Service: 08/02/23 MR/MR lumbar spine wo con: M54.41 ([id number]) XR/XR pre/post mri xray: M54.41 MRI Lumbar [...] Amado Raza M.D.08/02/2023 3:21 PM Dictation Location: [place] [address] Transcribed By: [facility] 08/02/23 1521 Dictated By: Amado Raza DO 08/02/23 1514 Signed By: 08/02/23 1521 [facility] Office Visit (Cardiology)on 10-04-2022 Follow-up visit Diagnoses/Problems [...] Weight Tips; Status:Complete - Retrospective Authorization; Done: [id number] Some eating tips that can help you lose weight.; Status:Complete - Retrospective Authorization; Done: [id number] Hyperlipidemia Renew: Atorvastatin Calcium 80 MG Oral Tablet; TAKE 1 TABLET AT BEDTIME S/P CABG (coronary artery bypass graft), Status post insertion of drug eluting coronary artery stent Start: Clopidogrel Bisulfate 75 MG Oral Tablet (Plavix); TAKE 1 TABLET DAILY SocHx: Former smoker Tobacco Use Screening; Status:Complete; Done: [id number] Patient Instructions Please bring all medicines, vitamins, and herbal supplements with you when you come to the office. Prescriptions will not be filled unless you are compliant with your follow up appointments or have a follow up appointment scheduled as per instruction of your physician. Refills should be requested at the time of your visit. Dr. Walt Barragan, [address], [place] [address] to do surgery to remove [...] Patient had remote CABG, recent non-ST elevation AL due to closure of negative right coronary however this was inconsequential because his sokaogon right coronary is already bypassed therefore he [...] Heart Ra (more content not included)... Normal [facility] [employer] Tobacco Screening.on 022 Adult depression screening assessment No [facility] [employer] 250 DO Work Phone: Tobacco use status [facility] b) No [facility] [employer] 250 DO Work Phone: Activated partial thrombopla stin time (aPTT) in platelet poor plasma by coagulation aOrdered By: Jermaine Jackson on 07-28-2022 aPTT Coag (PPP) [Time] 34.9 s 25.1-36.5 [facility] Basophils Auto (Bld) [#/Vol] Ordered By: Jermaine Jackson on 07-28-2022 Basophils (Bld) [#/Vol] 0.0 10*3/uL 0.0-0.2 [facility] Basophils/100 WBC Auto (Bld) Ordered By: Jermaine Jackson on 07-28-2022 Basophils/100 WBC (Bld) 0.5 % . [facility] Blood hemoglobin measurement (mass/volume)Ordered By: Jermaine Jackson on 07-28-2022 Hemoglobin (Bld) [Mass/Vol] 13.9 g/dL 13.0-17.0 [facility] Blood leukocytes automated c ount (number/volume)Ordered By: Jermaine Jackson on 07-28-2022 WBC (Bld) [#/Vol] 5.6 10*3/uL 4.5-11.0 [facility] Creatinine and Glomerular fi ltration rate.predicted panel (S/P/Bld)Ordered By: Jaswinder Flores on 07-28-2022 Creatinine [Mass/Vol] 1.00 mg/dL 0.64-1.27 [facility] Eosinophils Auto (Bld) [#/Vo l]Ordered By: Jermaine Jackson on 07-28-2022 Eosinophils (Bld) [#/Vol] 0.3 10*3/uL 0.0-0.45 [facility] Eosinophils/100 WBC Auto (Bl d)Ordered By: Jermaine Jackson on 07-28-2022 Eosinophils/100 WBC (Bld) 5.3 % . [facility] Erythrocyte distribution wid th Auto (RBC) [Ratio]Ordered By: Jermaine Jackson on 07-28-2022 Erythrocyte distribution width (RBC) [Ratio] 13.0 % 12.0-14.8 [facility] Estimated glomerular filtrat ion rate (GFR) non- AmericanOrdered By: Jaswinder Flores on 07-28-2022 GFR/1.73 sq M.predicted among non-blacks MDRD (S/P/Bld) [Vol rate/Area] > 60 mL/Min [facility] Glucose Glucometer (BldC) [M ass/Vol]Ordered By: [...] Hematocrit (Bld) [Volume fraction] 40.5 % 38.8-50.0 [facility] Laboratory - CoagulationOrde red By: Jermaine Jackson on 07-28-2022 PT Coag (PPP) [Time] 12.0 s 9.0-12.9 [facility] Laboratory - Hematology and Cell countsOrdered By: Jermaine Jackson on 07-28-2022 Nucleated RBC/100 WBC (Bld) [Ratio] 0.2 % 0-0.5 [facility] Lymphocytes Auto (Bld) [#/Vo l]Ordered By: Jermaine Jackson on 07-28-2022 Lymphocytes (Bld) [#/Vol] 1.4 10*3/uL 1.00-4.8 [facility] Lymphocytes/100 WBC Auto (Bl d)Ordered By: Jermaine Jackson on 07-28-2022 Lymphocytes/100 WBC (Bld) 24.6 % . [facility] MCH Auto (RBC) [Entitic mass ]Ordered By: Jermaine Jackson on 07-28-2022 MCH (RBC) [Entitic mass] 30.4 pg 27.5-35.2 [facility] MCHC Auto (RBC) [Mass/Vol]Or dered By: Jermaine Jackson on 07-28-2022 MCHC (RBC) [Mass/Vol] 34.3 g/dL 32.5-35.6 [facility] MCV Auto (RBC) [Entitic vol] Ordered By: Jermaine Jackson on 07-28-2022 MCV (RBC) [Entitic vol] 88.8 fL 83.5-101 [facility] Monocytes Auto (Bld) [#/Vol] Ordered By: Jermaine Jackson on 07-28-2022 Monocytes (Bld) [#/Vol] 0.6 10*3/uL 0.0-0.8 [facility] Monocytes/100 WBC Auto (Bld) Ordered By: Jermaine Jackson on 07-28-2022 Monocytes/100 WBC (Bld) 11.1 % . [facility] Neutrophils Auto (Bld) [#/Vo l]Ordered By: Jermaine Jackson on 07-28-2022 Neutrophils (Bld) [#/Vol] 3.3 10*3/uL 1.8-7.7 [facility] Neutrophils/100 WBC Auto (Bl d)Ordered By: Jermaine Jackson on 07-28-2022 Neutrophils/100 WBC (Bld) 58.5 % . [facility] No Panel InformationOrdered By: Jaswinder Flores on 07-28-2022 Estimated GFR () > 60 mL/Min [facility] Comment on above: GFR estimated refere nce range: According to KDOQI guidelines, <60 ml/min/1.73m2 is sufficient to diagnose a patient with chronic kidney disease. Pharmacy Creatinine Clearance (Chem 90.35 [facility] Platelet mean volume Auto (B ld) [Entitic vol]Ordered By: Jermaine Jackson on 07-28-2022 Platelet mean volume (Bld) [Entitic vol] 7.9 fL 6.6-10.1 [facility] Platelet poor plasma interna tional normalized ratio (INR) by coagulation assay (relatOrdered By: Jermaine Jackson on 07-28-2022 INR Coag (PPP) [Relative time] 1.1 {INR} [facility] Comment on above: INR Therapeutic Rang [...] 07-28-2022 Platelets (Bld) [#/Vol] 209 10*3/uL 150-450 [facility] RBC Auto (Bld) [#/Vol]Ordere d By: Jermaine Jackson on 07-28-2022 RBC (Bld) [#/Vol] 4.56 10*6/uL 3.90-5.60 [facility] Serum or plasma anion gap de terminationOrdered By: Jermaine Jackson on 07-28-2022 Anion gap [Moles/Vol] 13.0 mmol/L 6.0-15.0 [facility] Serum or plasma chloride micki surement (moles/volume)Ordered By: Jermaine Jackson on 07-28-2022 Chloride [Moles/Vol] 102 mmol/L 95-114 [facility] Serum or plasma potassium me asurement (moles/volume)Ordered By: Jermaine Jackson on 07-28-2022 Potassium [Moles/Vol] 4.2 mmol/L 3.5-5.1 [facility] Serum or plasma sodium measu rement (moles/volume)Ordered By: Jermaine Jackson on 07-28-2022 Sodium [Moles/Vol] 136 mmol/L 136-146 [facility] Serum or plasma total carbon dioxide measurement (moles/volume)Ordered By: Jermaine Jackson on 07-28-2022 CO2 [Moles/Vol] 25.2 mmol/L 22.0-30.0 [facility] Serum or plasma urea nitroge n measurement (mass/volume)Ordered By: Jeramine Jackson on 07-28-2022 Urea nitrogen [Mass/Vol] 11 mg/dL 9- [facility] Troponin I.cardiac [Mass/vol ume] in Serum or Plasma by High sensitivity methodOrdered By: Jaswinder Flores on 07-27-2022 Troponin I.cardiac High sensitivity method [Mass/Vol] 304 pg/mL 0-20 [facility] Comment on above: Results calledat 100 2 on 07/27/22 Albumin [Mass/volume] in Ser um or PlasmaOrdered By: Jaswinder Flores on 07-26-2022 Albumin [Mass/Vol] 3.7 g/dL 3.2-5.5 [facility] BNPon 07-26-2022 Natriuretic peptide B (Bld) [Mass/Vol] 62.0 pg/mL Normal <=900.0 [facility] Comment on above: Performed By: #### C MADM, BNP, CMP ####[facility] [id number] [place], [place] [address]PdDr. Sg Mccollum CARDIAC KHANG ADMITon 022 CK [Catalytic activity/Vol] 111 U/L Normal 39-308 [facility] Comment on above: Performed By: #### C MADM, BNP, CMP #### [facility] [address] [address] [address] Sg Mccollum CK.MB [Mass/Vol] 2.36 ng/mL Normal <=3.60 [facility] Comment on above: Performed By: #### C MADM, BNP, CMP #### [facility] [address] [address] [address] Sg Mccollum HSTROP 42.8 pg/mL Normal 4.0-76.1 [facility] Comment on above: Result Comment: CUT- OFF POINTS HAVE BEEN ESTABLISHED BASED ON THE FOURTH UNIVERSAL DEFINITIONS OF MYOCARDIAL INFARCTION. THE UPPER REFERENCE LIMIT (URL) OF TROPONIN, DEFINED THE 99TH PERCENTILE OF cTnI DISTRIBUTION IN A REFERENCE POPULATION, HAS BEEN CONFIRMED THE DECISION THRESHOLD FOR AL DIAGNOSIS. Performed By: #### C MADM, BNP, CMP #### [facility] [address] [address] [address] Sg Mccollum NAKIA 78 ng/mL Normal 16-96 [facility] Comment on above: Performed By: #### C MADM, BNP, CMP #### [facility] [id number] Sg Mccollum CBC AUTO DIFFon 07-26-2022 BASO # 0.0 103/ul Normal 0.0-0.1 [facility] Comment on above: Performed By: #### C BC #### [facility] [address] [address] [address] Sg Mccollum Basophils/100 WBC (Bld) 0.2 % Normal 0.2-2.0 [facility] Comment on above: Performed By: #### C BC #### [facility] [address] [place] [address] Dr. Sg Mccollum EO # 0.3 103/ul Normal 0.0-0.7 [facility] Comment on above: Performed By: #### C BC #### [facility] [address] [place] [address] Dr. Sg Mccollum Eosinophils/100 WBC (Bld) 5.4 % Normal 0.9-7.0 [facility] Comment on above: Performed By: #### C BC #### [facility] [address] [place] [address] Dr. Sg Mccollum Erythrocyte distribution width (RBC) [Ratio] 12.5 % Normal 11.0-15.0 [facility] Comment on above: Performed By: #### C BC #### [facility] [address] [place] [address] Dr. Sg Mccollum Hematocrit (Bld) [Volume fraction] 40.8 % Critically low 42.0-54.0 [facility] Comment on above: Performed By: #### C BC #### [facility] [address] [place] [address] Dr. Sg Mccollum Hemoglobin (Bld) [Mass/Vol] 13.8 g/dL Critically low 14.0-18.0 [facility] Comment on above: Performed By: #### C BC #### [facility] [address] [place] [address] Dr. Sg Mccollum IG # 0.01 10e3/ul Normal 0.00-0.03 [facility] Comment on above: Performed By: #### C BC #### [facility] [address] [place] [address] Dr. Sg Mccollum IG % 0.2 % Normal 0.0-0.5 [facility] Comment on above: Performed By: #### C BC #### [facility] [address] [place] [address] Dr. Sg Mccollum LYMPH # 1.1 103/ul Critically low 1.2-3.8 [facility] Comment on above: Performed By: #### C BC #### [facility] [address] [place] [address] Dr. Sg Mccollum Lymphocytes/100 WBC (Bld) 19.2 % Critically low 20.5-60.0 [facility] Comment on above: Performed By: #### C BC #### [facility] [address] [place] [address] Dr. Sg Mccollum MANUAL DIFF REQ NO Normal [facility] Comment on above: Performed By: #### C BC #### [facility] [address] [place] [address] Dr. Sg Mccollum MCH (RBC) [Entitic mass] 29.8 pg Normal 25.9-34.0 [facility] Comment on above: Performed By: #### C BC #### [facility] [address] [place] [address] Dr. Sg Mccollum MCHC (RBC) [Mass/Vol] 33.8 g/dL Normal 29.9-35.2 [facility] Comment on above: Performed By: #### C BC #### [facility] [address] [place] [address] Dr. Sg Mccollum MCV (RBC) [Entitic vol] 88.1 fL Normal 80.0-94.0 [facility] Comment on above: Performed By: #### C BC #### [facility] [address] [place] [address] Dr. Sg Mccollum MONO # 0.6 103/ul Normal 0.3-0.8 [facility] Comment on above: Performed By: #### C BC #### [facility] [address] [place] [address] Dr. Sg Mccollum Monocytes/100 WBC (Bld) 10.8 % Normal 1.7-12.0 [facility] Comment on above: Performed By: #### C BC #### [facility] [address] [place] [address] Dr. Sg Mccollum NEUT # 3.6 103/ul Normal 1.4-6.5 [facility] Comment on above: Performed By: #### C BC #### [facility] [address] [address] [address] Sg Mccollum Neutrophils/100 WBC (Bld) 64.2 % Normal 43.0-75.0 [facility] Comment on above: Performed By: #### C BC #### [facility] [address] [address] [address] Sg Mccollum Platelet mean volume (Bld) [Entitic vol] 9.4 fL Critically low 9.5-13.5 [facility] Comment on above: Performed By: #### C BC #### [facility] [address] [address] [address] Sg Mccollum PLT 225 103/ul Normal 150-450 [facility] Comment on above: Performed By: #### C BC #### [facility] [address] [address] [address] Sg Mccollum RBC 4.63 106/ul Critically low 4.70-6.10 [facility] Comment on above: Performed By: #### C BC #### [facility] [address] [address] [address] Sg Mccollum WBC 5.6 103/ul Normal 4.0-11.0 [facility] Comment on above: Performed By: #### C BC #### [facility] [address] [address] [address] Sg Mccollum Cholesterol [Mass/volume] in Serum or PlasmaOrdered By: Jaswinder Flores on 07-26-2022 Cholesterol [Mass/Vol] 103 mg/dL 140-200 [facility] Comment on above: Chol less than 200 m g/dl low riskChol 201-239 mg/dl borderline riskChol 240 mg/dl and greater high risk Cholesterol in LDL Calc [Mas s/Vol]Ordered By: Jaswinder Flores on 07-26-2022 Cholesterol in LDL [Mass/Vol] 51 mg/dL 0-100 [facility] Comment on above: LDL ATP III CLASSIFI CATIONLDL less than 100 mg/dL OptimalLDL 100-129 mg/dL Near or above optimalLDL 130-159 mg/dL Borderline highLDL 160-189 mg/dL HighLDL greater than 189 mg/dL Very high Cholesterol in VLDL Calc [Ma ss/Vol]Ordered By: Jaswinder Flores on 07-26-2022 Cholesterol in VLDL [Mass/Vol] 21 mg/dL [facility] SARS-CoV-2 (COVID-19) RNA DONTE+probe Ql (Unsp spec) Not detected Normal NOT DETECTED [facility] Comment on above: Result Comment: When diagnostic [...] for this test is supported by the [place] of Health and Human Service's declaration that [...] longer be used). Performed By: #### C [facility] #### [facility] [address] [address] [address] Sg Mccollum Globulin Calc (S) [Mass/Vol] Ordered By: Jaswinder Flores on 07-26-2022 Globulin (S) [Mass/Vol] 2.8 g/dL [facility] Glucose mean value [Mass/vol ume] in Blood Estimated from glycated hemoglobinOrdered By: Jaswinder Flores on 07-26-2022 Average glucose Estimated from glycated hemoglobin (Bld) [Mass/Vol] 151 mg/dL [facility] Hemoglobin A1c percentageOrd ered By: Jaswinder Flores on 07-26-2022 HbA1c (Bld) [Mass fraction] 6.9 % 4.3-5.6 [facility] Comment on above: Increased risk for d iabetes: 5.7 - 6.4diabetes: >6.4glycemic control for adults with diabetes: <7.0 Laboratory - Chemistry and C hemistry - challengeOrdered By: Jaswinder Flores on 07-26-2022 Magnesium [Mass/Vol] 2.0 mg/dL 1.6-2.6 [facility] PROF 14(COMP METB)on 022 Albumin [Mass/Vol] 3.9 g/dL Normal 3.4-5.0 [place] Comment on above: Performed By: #### C MADM, BNP, CMP #### [facility] [address] [address] [address] Sg Mccollum Albumin/Globulin [Mass ratio] 1.2 {ratio} Normal [facility] Comment on above: Performed By: #### C MADM, BNP, CMP #### [facility] [address] [address] [address] Sg Mccollum ALP [Catalytic activity/Vol] 101 U/L Normal 46-116 [facility] Comment on above: Performed By: #### C MADM, BNP, CMP #### [facility] [address] [address] [address] Sg Mccollum ALT [Catalytic activity/Vol] 33 U/L Normal 16-63 [facility] Comment on above: Performed By: #### C MADM, BNP, CMP #### [facility] [address] [address] [address] Sg Mccollum Anion gap [Moles/Vol] 12.8 mmol/L Normal [facility] Comment on above: Performed By: #### C MADM, BNP, CMP #### [facility] [address] [address] [address] Sg Mccollum AST [Catalytic activity/Vol] 23 U/L Normal 15-37 [facility] Comment on above: Performed By: #### C MADM, BNP, CMP #### [facility] [address] [address] [address] Sg Mccollum Bilirubin [Mass/Vol] 0.4 mg/dL Normal 0.2-1.0 [facility] Comment on above: Performed By: #### C MADM, BNP, CMP #### [facility] [address] [place] [address] Dr. Sg Mccollum Calcium [Mass/Vol] 8.9 mg/dL Normal 8.5-10.1 [place] Comment on above: Performed By: #### C MADM, BNP, CMP #### [facility] [address] [place] [address] Dr. Sg Mccollum Chloride [Moles/Vol] 103 mmol/L Normal 98-107 [facility] Comment on above: Performed By: #### C MADM, BNP, CMP #### [facility] [address] [place] [address] Dr. Sg Mccollum CO2 [Moles/Vol] 25.2 mmol/L Normal 21.0-32.0 [facility] Comment on above: Performed By: #### C MADM, BNP, CMP #### [facility] [address] [place] [address] Dr. Sg Mccollum Creatinine [Mass/Vol] 1.04 mg/dL Normal 0.70-1.30 [facility] Comment on above: Performed By: #### C MADM, BNP, CMP #### [facility] [address] [place] [address] Dr. Sg Mccollum EGFR-AF EMIRATI >60 Normal >=60 [facility] Comment on above: Performed By: #### C MADM, BNP, CMP #### [facility] [address] [place] [address] Dr. Sg Mccollum EGFR-NON AF EMIRATI >60 Normal >=60 [facility] Comment on above: Performed By: #### C MADM, BNP, CMP #### [facility] [address] [place] [address] Dr. Sg Mccollum Globulin (S) [Mass/Vol] 3.3 g/dL Normal [facility] Comment on above: Performed By: #### C MADM, BNP, CMP #### [facility] [address] [place] [address] Dr. Sg Mccollum Glucose [Mass/Vol] 146 mg/dL Critically high 74-[address] [facility] Comment on above: Performed By: #### C MADM, BNP, CMP #### [facility] [address] [address] [address] Sg Mccollum Potassium [Moles/Vol] 4.0 mmol/L Normal 3.5-5.1 [facility] Comment on above: Performed By: #### C MADM, BNP, CMP #### [facility] [address] [address] [address] Sg Mccollum Protein [Mass/Vol] 7.2 g/dL Normal 6.4-8.2 [facility] Comment on above: Performed By: #### C MADM, BNP, CMP #### [facility] [address] [place] [address] Dr. Sg Mccollum Sodium [Moles/Vol] 137 mmol/L Normal 136-145 [facility] Comment on above: Performed By: #### C MADM, BNP, CMP #### [facility] [address] [place] [address] Dr. Sg Mccollum Urea nitrogen [Mass/Vol] 6.0 mg/dL Critically low 7.0-18.0 [facility] Comment on above: Performed By: #### C MADM, BNP, CMP #### [facility] [address] [place] [address] Dr. Sg Mccollum Urea nitrogen/Creatinine [Mass ratio] 5.8 mg/mg Normal [facility] Comment on above: Performed By: #### C MADM, BNP, CMP #### [facility] [address] [place] [address] Dr. Sg Mccollum PROTIMEon 07-26-2022 INR Coag (PPP) [Relative time] 0.97 {INR} Normal [facility] Comment on above: Performed By: #### P TT, PT #### [facility] [address] [place] [address] Dr. Sg Mccollum INR GUIDELINES SEE BELOW Normal [facility] Comment on above: Result Comment: OLE RED INR: 2.0 - 3.0 CONDITIONS NOT LISTED BELOW 2.5 - 3.5 FOR PROSTHETIC HEART VALVE REPLACEMENT 2.5 - 3.5 RECURRENT THROMBOSIS Performed By: #### P TT, PT #### [facility] [address] [address] [address] Sg Mccollum PT Coag (PPP) [Time] 10.5 s Normal 9.0-11.6 [facility] Comment on above: Performed By: #### P TT, PT #### [facility] [address] [address] [address] Sg Mccollum PTTon 07-26-2022 aPTT Coag (Bld) [Time] 26.1 s Normal 22.3-36.2 [facility] Comment on above: Performed By: #### P TT, PT #### [facility] [address] [place], [place] [address] Dr. Sg Mccollum Phosphate [Mass/volume] in S sanjeev or PlasmaOrdered By: Objfefdafrida Vegaomar on 07-26-2022 Phosphate [Mass/Vol] 3.7 mg/dL 2.5-4.6 [facility] Protein [Mass/volume] in Ser um or PlasmaOrdered By: Objeffdah Garyomar on 07-26-2022 Protein [Mass/Vol] 6.5 g/dL 6.1-7.9 [facility] Serum or plasma alanine soto otransferase measurement without P-5'-P (enzymatic activiOrdered By: Jaswinder Leir on 07-26-2022 ALT No additional P-5'-P [Catalytic activity/Vol] 26 U/L 10-60 [facility] Serum or plasma albumin/glob ulin mass ratioOrdered By: Objeffdafrida Vegaomar on 07-26-2022 Albumin/Globulin [Mass ratio] 1.3 {ratio} [facility] Serum or plasma alkaline toi sphatase measurement (enzymatic activity/volume)Ordered By: Objeffdafrida Vegaomar on 07-26-2022 ALP [Catalytic activity/Vol] 84 U/L 32-92 [facility] Serum or plasma aspartate am inotransferase measurement (enzymatic activity/volume)Ordered By: Objosette Flores on 07-26-2022 AST [Catalytic activity/Vol] 25 U/L 10-42 [facility] Serum or plasma calcium taj urement [...] Cholesterol in HDL [Mass/Vol] 30 mg/dL 29-71 [facility] Comment on above: HDL CHOL ATP-III CLA SSIFICATION Cardiovascular RiskHDL > or equal to 60 mg/dL LOWHDL < 40 mg/dL HIGH Serum or plasma total biliru bin measurement (mass/volume)Ordered By: Jaswinder Flores on 07-26-2022 Bilirubin [Mass/Vol] 0.7 mg/dL 0.3-1.2 [facility] Serum or plasma total choles terol/high density lipoprotein (HDL) cholesterol mass ratOrdered By: Jaswinder Flores on 07-26-2022 Cholesterol.total/Cho lesterol in HDL [Mass ratio] 3.4 {ratio} <5.0 [facility] TROPONIN, HIGH SENSITIVITYon 07-26-2022 HSTROP 546.5 pg/mL Critically high 4.0-76.1 [facility] Comment on above: Result Comment: CUT- OFF POINTS HAVE BEEN ESTABLISHED BASED ON THE FOURTH UNIVERSAL DEFINITIONS OF MYOCARDIAL INFARCTION. THE UPPER REFERENCE LIMIT (URL) OF TROPONIN, DEFINED THE 99TH PERCENTILE OF cTnI DISTRIBUTION IN A REFERENCE POPULATION, HAS BEEN CONFIRMED THE DECISION THRESHOLD FOR AL DIAGNOSIS. Performed By: #### H STRO #### [facility] [address] [address] [address] Sg Mccollum Triglyceride [Mass/volume] i n Serum or PlasmaOrdered By: Jaswinder Flores on 07-26-2022 Triglyceride [Mass/Vol] 109 mg/dL 35-149 [facility] Comment on above: TRIG ATP III [...] SAUNDRA GOEL Date: 2022-07-26 12:14 Normal [facility] CBC AUTO DIFFon 05-30-2022 BASO # 0.0 103/ul Normal 0.0-0.1 [facility] Comment on above: Performed By: #### C BC #### [facility] [address] [address] [address] Sg Mccollum Basophils/100 WBC (Bld) 0.4 % Normal 0.2-2.0 [facility] Comment on above: Performed By: #### C BC #### [facility] [address] [address] [address] Sg Mccollum EO # 0.2 103/ul Normal 0.0-0.7 [facility] Comment on above: Performed By: #### C BC #### [facility] [address] [address] [address] Sg Mccollum Eosinophils/100 WBC (Bld) 3.4 % Normal 0.9-7.0 [facility] Comment on above: Performed By: #### C BC #### [facility] [address] [place] [address] Dr. Sg Mccollum Erythrocyte distribution width (RBC) [Ratio] 12.7 % Normal 11.0-15.0 [facility] Comment on above: Performed By: #### C BC #### [facility] [address] [place] [address] Dr. Sg Mccollum Hematocrit (Bld) [Volume fraction] 40.8 % Critically low 42.0-54.0 [facility] Comment on above: Performed By: #### C BC #### [facility] [address] [place] [address] Dr. Sg Mccollum Hemoglobin (Bld) [Mass/Vol] 13.5 g/dL Critically low 14.0-18.0 [facility] Comment on above: Performed By: #### C BC #### [facility] [address] [place] [address] Dr. Sg Mccollum IG # 0.02 10e3/ul Normal 0.00-0.03 [facility] Comment on above: Performed By: #### C BC #### [facility] [address] [place] [address] Dr. Sg Mccollum IG % 0.4 % Normal 0.0-0.5 [facility] Comment on above: Performed By: #### C BC #### [facility] [address] [place] [address] Dr. Sg Mccollum LYMPH # 1.1 103/ul Critically low 1.2-3.8 [facility] Comment on above: Performed By: #### C BC #### [facility] [address] [place] [address] Dr. Sg Mccollum Lymphocytes/100 WBC (Bld) 22.0 % Normal 20.5-60.0 [facility] Comment on above: Performed By: #### C BC #### [facility] [address] [place] [address] Dr. Sg Mccollum MANUAL DIFF REQ NO Normal [facility] Comment on above: Performed By: #### C BC #### [facility] [address] [address] [address] Sg Mccollum MCH (RBC) [Entitic mass] 30.0 pg Normal 25.9-34.0 [facility] Comment on above: Performed By: #### C BC #### [facility] [address] [place] [address] Dr. Sg Mccollum MCHC (RBC) [Mass/Vol] 33.1 g/dL Normal 29.9-35.2 [facility] Comment on above: Performed By: #### C BC #### [facility] [address] [place] [address] Dr. Sg Mccollum MCV (RBC) [Entitic vol] 90.7 fL Normal 80.0-94.0 [facility] Comment on above: Performed By: #### C BC #### [facility] [address] [place] [address] Dr. Sg Mccollum MONO # 0.5 103/ul Normal 0.3-0.8 [facility] Comment on above: Performed By: #### C BC #### [facility] [address] [place] [address] Dr. Sg Mccollum Monocytes/100 WBC (Bld) 9.6 % Normal 1.7-12.0 [facility] Comment on above: Performed By: #### C BC #### [facility] [address] [place] [address] Dr. Sg Mccollum NEUT # 3.2 103/ul Normal 1.4-6.5 [facility] Comment on above: Performed By: #### C BC #### [facility] [address] [place] [address] Dr. Sg Mccollum Neutrophils/100 WBC (Bld) 64.2 % Normal 43.0-75.0 [facility] Comment on above: Performed By: #### C BC #### [facility] [address] [place] [address] Dr. Sg Mccollum Platelet mean volume (Bld) [Entitic vol] 9.4 fL Critically low 9.5-13.5 [facility] Comment on above: Performed By: #### C BC #### [facility] [address] [place], [place] [address] Dr. Sg Mccollum PLT 232 103/ul Normal 150-450 [facility] Comment on above: Performed By: #### C BC #### [facility] [address] [place], [place] [address] Dr. Sg Mccollum RBC 4.50 106/ul Critically low 4.70-6.10 [facility] Comment on above: Performed By: #### C BC #### [facility] [address] [place], [place] [address] Dr. Sg Mccollum WBC 5.0 103/ul Normal 4.0-11.0 [facility] Comment on above: Performed By: #### C BC #### [facility] [address] [place], [place] [address] ABD/PELVIS WO CONon [...] by: SAUNDRA GOEL Date: 2022-05-30 13:02 Normal [facility] PROF 14(COMP METB)on 022 Albumin [Mass/Vol] 4.0 g/dL Normal 3.4-5.0 [place] Comment on above: Performed By: #### C MP ####[facility] [address] [place], [place] [address]Dr. Sg Mccollum Albumin/Globulin [Mass ratio] 1.3 {ratio} Normal [facility] Comment on above: Performed By: #### C MP ####[facility] [address] [address]Dr. Sg Mccollum ALP [Catalytic activity/Vol] 76 U/L Normal 46-116 [facility] Comment on above: Performed By: #### C MP ####[facility] [address] [address]Dr. Sg Mccollum ALT [Catalytic activity/Vol] 26 U/L Normal 16-63 [facility] Comment on above: Performed By: #### C MP ####[facility] [address] [address]Dr. Sg Mccollum Anion gap [Moles/Vol] 10.3 mmol/L Normal [facility] Comment on above: Performed By: #### C MP ####[facility] [address] [address]Dr. Sg Mccollum AST [Catalytic activity/Vol] 18 U/L Normal 15-37 [facility] Comment on above: Performed By: #### C MP ####[facility] [address] [place], [place] [address]Dr. Sg Mccollum Bilirubin [Mass/Vol] 0.6 mg/dL Normal 0.2-1.0 [facility] Comment on above: Performed By: #### C MP ####[facility] [address] [place], [place] [address]Dr. Sg Mccollum Calcium [Mass/Vol] 9.0 mg/dL Normal 8.5-10.1 [place] Comment on above: Performed By: #### C MP ####[facility] [address] [place], [place] [address]Dr. Sg Mccollum Chloride [Moles/Vol] 103 mmol/L Normal 98-107 [facility] Comment on above: Performed By: #### C MP ####[facility] [address] [place], [place] [address]Dr. Sg Mccollum CO2 [Moles/Vol] 30.1 mmol/L Normal 21.0-32.0 [facility] Comment on above: Performed By: #### C MP ####[facility] [address] [place], [place] [address]Dr. Sg Mccollum Creatinine [Mass/Vol] 1.11 mg/dL Normal 0.70-1.30 [facility] Comment on above: Performed By: #### C MP ####[facility] [address] [place], [place] [address]Dr. Sg Chun EGFR-AF EMIRATI >60 Normal >=60 [facility] Comment on above: Performed By: #### C MP ####[facility] [address] [place], [place] [address]Dr. Delorismarina Chun EGFR-NON AF EMIRATI >60 Normal >=60 [facility] Comment on above: Performed By: #### C MP ####[facility] [address] [place], [place] [address]Dr. Sg Mccollum Globulin (S) [Mass/Vol] 3.2 g/dL Normal [facility] Comment on above: Performed By: #### C MP ####[facility] [address] [address]Dr. Sg Mccollum Glucose [Mass/Vol] 164 mg/dL Critically high 74-106 [facility] Comment on above: Performed By: #### C MP ####[facility] [address] [address]Dr. Sg Mccollum Potassium [Moles/Vol] 5.4 mmol/L Critically high 3.5-5.1 [facility] Comment on above: Performed By: #### C MP ####[facility] [address] [address]Dr. Sg Mccollum Protein [Mass/Vol] 7.2 g/dL Normal 6.4-8.2 [place] Comment on above: Performed By: #### C MP ####[facility] [address] [address]Dr. Sg Mccollum Sodium [Moles/Vol] 138 mmol/L Normal 136-145 [place] Comment on above: Performed By: #### C MP ####[facility] [address] [address]Dr. Sg Mccollum Urea nitrogen [Mass/Vol] 11.0 mg/dL Normal 7.0-18.0 [facility] Comment on above: Performed By: #### C MP ####[facility] [address] [address]Dr. Sg Mccollum Urea nitrogen/Creatinine [Mass ratio] 9.9 mg/mg Normal [facility] Comment on above: Performed By: #### C MP ####[facility] [address] [address]Dr. Sg Mccollum Activated partial thrombopla stin time (aPTT) in platelet poor plasma by coagulation aOrdered By: Jermaine Jackson on 05-11-2022 aPTT Coag (PPP) [Time] 30.0 s 25.1-36.5 [facility] Basophils Auto (Bld) [#/Vol] Ordered By: Jermaine Jackson on 07-14-2022 Basophils (Bld) [#/Vol] 0.0 10*3/uL 0.0-0.2 [facility] Basophils/100 WBC Auto (Bld) Ordered By: Jermaine Jackson on 05-11-2022 Basophils/100 WBC (Bld) 0.6 % . [facility] Blood hemoglobin measurement (mass/volume)Ordered By: Jermaine Jackson on 05-11-2022 Hemoglobin (Bld) [Mass/Vol] 14.1 g/dL 13.0-17.0 [facility] Blood leukocytes automated c ount (number/volume)Ordered By: Jermaine Jackson on 05-11-2022 WBC (Bld) [#/Vol] 5.7 10*3/uL 4.5-11.0 [facility] COVID-19 SOFIAOrdered By: Jermaine Jackson on 05-11-2022 SARS-CoV+SARS-CoV-2 (COVID-19) Ag IA.rapid Ql (Resp) Negative Negative [facility] Comment on above: This is a duplicate Aishwarya SARS Antigen (GENEVA) result to be used for statistical tracking purpose only. Cholesterol [Mass/volume] in Serum or PlasmaOrdered By: Jermaine Jackson on 05-11-2022 Cholesterol [Mass/Vol] 118 mg/dL 140-200 [facility] Comment on above: Chol less than 200 m g/dl low risk Chol 201-239 mg/dl borderline risk Chol 240 mg/dl and greater high risk Chol less than 200 m g/dl low riskChol 201-239 mg/dl borderline riskChol 240 mg/dl and greater high risk Cholesterol in LDL Calc [Mas s/Vol]Ordered By: Jermaine Jackson on 05-11-2022 Cholesterol in LDL [Mass/Vol] 45 mg/dL 0-100 [facility] Comment on above: LDL ATP III [...] 05-11-2022 Cholesterol in VLDL [Mass/Vol] 41 mg/dL [facility] Creatinine and Glomerular fi ltration rate.predicted panel (S/P/Bld)Ordered By: Jermaine Jackson on 05-11-2022 Creatinine [Mass/Vol] 0.96 mg/dL 0.64-1.27 [facility] Eosinophils Auto (Bld) [#/Vo l]Ordered By: Jermaine Jackson on 05-11-2022 Eosinophils (Bld) [#/Vol] 0.2 10*3/uL 0.0-0.45 [facility] Eosinophils/100 WBC Auto (Bl d)Ordered By: Jermaine Jackson on 05-11-2022 Eosinophils/100 WBC (Bld) 4.2 % . [facility] Erythrocyte distribution wid th Auto (RBC) [Ratio]Ordered By: Jermaine Jackson on 05-11-2022 Erythrocyte distribution width (RBC) [Ratio] 13.2 % 12.0-14.8 [facility] Estimated glomerular filtrat ion rate (GFR) non- AmericanOrdered By: Jermaine Jackson on 05-11-2022 GFR/1.73 sq M.predicted among non-blacks MDRD (S/P/Bld) [Vol rate/Area] > 60 mL/Min [facility] Hematocrit Auto (Bld) [Volum e fraction]Ordered By: Jermaine Jackson on 05-11-2022 Hematocrit (Bld) [Volume fraction] 41.3 % 38.8-50.0 [facility] Laboratory - Chemistry and C hemistry - challengeon 05-11-2022 Cholesterol [Mass/Vol] 118\S\118 below low threshold 140-200 [facility] [place] 250 DO Work Phone: Comment on above: Chol less than 200 m g/dl low risk Chol 201-239 mg/dl borderline risk Chol 240 mg/dl and greater high risk Cholesterol in LDL [Mass/Vol] 45\S\45 Normal 0-100 [facility] 250 DO Work Phone: Comment on above: LDL ATP III CLASSIFI CATION LDL less than 100 mg/dL Optimal LDL 100-129 mg/dL Near or above optimal LDL 130-159 mg/dL Borderline high LDL 160-189 mg/dL High LDL greater than 189 mg/dL Very high Laboratory - CoagulationOrde red By: Jermaine Jackson on 05-11-2022 PT Coag (PPP) [Time] 11.2 s 9.0-12.9 [facility] Laboratory - Hematology and Cell countsOrdered By: Jermaine Jackson on 05-11-2022 Nucleated RBC/100 WBC (Bld) [Ratio] 0.1 % 0-0.5 [facility] - Microbiology an d Antimicrobial susceptibilityon 05-11-2022 SARS-CoV-2 (COVID-19) RNA DONTE+probe Ql (Unsp spec) -[facility] 250 DO Work Phone: Lymphocytes Auto (Bld) [#/Vo l]Ordered By: Jermaine Jackson on 05-11-2022 Lymphocytes (Bld) [#/Vol] 1.4 10*3/uL 1.00-4.8 [facility] Lymphocytes/100 WBC Auto (Bl d)Ordered By: Jermaine Jackson on 05-11-2022 Lymphocytes/100 WBC (Bld) 24.2 % . [facility] MCH Auto (RBC) [Entitic mass ]Ordered By: Jermaine Jackson on 05-11-2022 MCH (RBC) [Entitic mass] 30.5 pg 27.5-35.2 [facility] MCHC Auto (RBC) [Mass/Vol]Or dered By: Jermaine Jackson on 05-11-2022 MCHC (RBC) [Mass/Vol] 34.1 g/dL 32.5-35.6 [facility] MCV Auto (RBC) [Entitic vol] Ordered By: Jermaine Jackson on 05-11-2022 MCV (RBC) [Entitic vol] 89.6 fL 83.5-101 [facility] Monocytes Auto (Bld) [#/Vol] Ordered By: Jermaine Jackson on 05-11-2022 Monocytes (Bld) [#/Vol] 0.7 10*3/uL 0.0-0.8 [facility] Monocytes/100 WBC Auto (Bld) Ordered By: Jermaine Jackson on 05-11-2022 Monocytes/100 WBC (Bld) 12.3 % . [facility] Neutrophils Auto (Bld) [#/Vo l]Ordered By: Jermaine Jackson on 05-11-2022 Neutrophils (Bld) [#/Vol] 3.3 10*3/uL 1.8-7.7 [facility] Neutrophils/100 WBC Auto (Bl d)Ordered By: Jermaine Jackson on 05-11-2022 Neutrophils/100 WBC (Bld) 58.7 % . [facility] No Panel InformationOrdered By: Jermaine Jackson on 05-11-2022 Estimated GFR () > 60 mL/Min [facility] Comment on above: GFR estimated refere nce range: According to KDOQI guidelines, <60 ml/min/1.73m2 is sufficient to diagnose a patient with chronic kidney disease. Pharmacy Creatinine Clearance (Chem N/A [facility] SARS Antigen (LFIA) [facility] SARS Antigen (LFIA) [facility] No Panel Informationon 05-11 58.7\S\58.7 Normal . [facility] 250 DO Work Phone: 8.0\S\8.0 Normal 6.6-10.1 [facility] 250 DO Work Phone: 240\S\240 Normal 150-450 [facility] 250 DO Work Phone: 13.2\S\13.2 Normal 12.0-14.8 [facility] 250 DO Work Phone: 34.1\S\34.1 Normal 32.5-35.6 [facility] 250 DO Work Phone: 30.5\S\30.5 Normal 27.5-35.2 [facility] 250 DO Work Phone: 3.3\S\3.3 Normal 1.8-7.7 [facility] 250 DO Work Phone: 0.1\S\0.1 Normal 0-0.5 [facility] 250 DO Work Phone: 0.6\S\0.6 Normal . [facility] 250 DO Work Phone: 4.2\S\4.2 Normal . [facility] 250 DO Work Phone: 12.3\S\12.3 Normal . [facility] 250 DO Work Phone: 24.2\S\24.2 Normal . [facility] 250 DO Work Phone: 0.0\S\0.0 Normal 0.0-0.2 [facility] 250 DO Work Phone: Comment on above: PERFORMED BY:[address] [address] [place], [place] [id number] MEDICAL DIRECTORSUNNY RANDALL M.D. 0.2\S\0.2 Normal 0.0-0.45 [facility] 250 DO Work Phone: 0.7\S\0.7 Normal 0.0-0.8 [facility] 250 DO Work Phone: 1.4\S\1.4 Normal 1.00-4.8 [facility] 250 DO Work Phone: 89.6\S\89.6 Normal 83.5-101 [facility] 250 DO Work Phone: 41.3\S\41.3 Normal 38.8-50.0 [facility] 250 DO Work Phone: 14.1\S\14.1 Normal 13.0-17.0 [facility] 250 DO Work Phone: 4.61\S\4.61 Normal 3.90-5.60 [facility] 250 DO Work Phone: 5.7\S\5.7 Normal 4.1-10.5 [facility] 250 DO Work Phone: 30.0\S\30.0 Normal 25.1-36.5 [facility] 250 DO Work Phone: Comment on above: PERFORMED BY:[address] [address] [place], [place] [phone] MEDICAL DIRECTORSUNNY RANDALL M.D. 1.0\S\1.0 Normal [facility] 250 DO Work Phone: Comment on above: [...] valves: 3 - 4.5 11.2\S\11.2 Normal 9.0-12.9 [facility] 250 DO Work Phone: 27.8\S\27.8 Normal 22.0-30.0 [facility] 250 DO Work Phone: 102\S\102 Normal 95-114 [facility] 250 DO Work Phone: 5.0\S\5.0 Normal 3.5-5.1 [facility] 250 DO Work Phone: 136\S\136 Normal 136-146 [facility] 250 DO Work Phone: 7\S\7 below low threshold 9-23 [facility] 250 DO Work Phone: > 60 Normal [facility] 250 DO Work Phone: Comment on above: GFR estimated refere nce range: According to KDOQI guidelines, <60 ml/min/1.73m2 is sufficient to diagnose a patient with chronic kidney disease. 0.96\S\0.96 Normal 0.64-1.27 [facility] 250 DO Work Phone: 3.8\S\3.8 Normal <5.0 [facility] 250 DO Work Phone: Comment on above: PERFORMED BY:[facility] [place], [place] [phone] MEDICAL DIRECTORSUNNY RANDALL M.D. 41\S\41 Normal [facility] 250 DO Work Phone: 208\S\208 above high threshold 35-149 [facility] 250 DO Work Phone: Comment on above: TRIG ATP III CLASSIF ICATION TRIG less than 150 mg/dL Normal TRIG 150-199 mg/dL Borderline high TRIG 200-500 mg/dL High TRIG greater than 500 mg/dL Very high Standard traceable to the Center for Disease Conrtrol and Prevention (CDC) test method. 31\S\31 Normal 29-71 [facility] Work Phone: Comment on above: HDL CHOL ATP-III CLA SSIFICATION Cardiovascular Risk HDL > or equal to 60 mg/dL LOW HDL < 40 mg/dL HIGH Negative Normal Negative [facility] 250 DO Work Phone: Comment on above: This is a duplicate Aishwarya SARS Antigen (GENEVA) result to be used for statistical tracking purpose only.PERFORMED BY:[address] [address] [place], [place] [phone] MEDICAL DIRECTORSUNNY RANDALL M.D. Platelet mean volume Auto (B ld) [Entitic vol]Ordered By: Jermaine Jackson on 05-11-2022 Platelet mean volume (Bld) [Entitic vol] 8.0 fL 6.6-10.1 [facility] Platelet poor plasma interna tional normalized ratio (INR) by coagulation assay (relatOrdered By: Jermaine Jackson on 05-11-2022 INR Coag (PPP) [Relative time] 1.0 {INR} [facility] Comment on above: INR Therapeutic Rang [...] 05-11-2022 Platelets (Bld) [#/Vol] 240 10*3/uL 150-450 [facility] RBC Auto (Bld) [#/Vol]Ordere d By: Jermaine Jackson on 05-11-2022 RBC (Bld) [#/Vol] 4.61 10*6/uL 3.90-5.60 [facility] Serum or plasma chloride micki surement (moles/volume)Ordered By: Jermaine Jackson on 05-11-2022 Chloride [Moles/Vol] 102 mmol/L 95-114 [facility] Serum or plasma high density lipoprotein (HDL) cholesterol measurementOrdered By: Jermaine Jackson on 05-11-2022 Cholesterol in HDL [Mass/Vol] 31 mg/dL 29-71 [facility] Comment on above: HDL CHOL ATP-III CLA SSIFICATION Cardiovascular Risk HDL > or equal to 60 mg/dL LOW HDL < 40 mg/dL HIGH HDL CHOL ATP-III CLA SSIFICATION Cardiovascular RiskHDL > or equal to 60 mg/dL LOWHDL < 40 mg/dL HIGH Serum or plasma potassium me asurement (moles/volume)Ordered By: Jermaine Jackson on 05-11-2022 Potassium [Moles/Vol] 5.0 mmol/L 3.5-5.1 [facility] Serum or plasma sodium measu rement (moles/volume)Ordered By: Jermaine Jackson on 05-11-2022 Sodium [Moles/Vol] 136 mmol/L 136-146 [facility] Serum or plasma total carbon dioxide measurement (moles/volume)Ordered By: Jermaine Jackson on 05-11-2022 CO2 [Moles/Vol] 27.8 mmol/L 22.0-30.0 [facility] Serum or plasma total choles terol/high density lipoprotein (HDL) cholesterol mass ratOrdered By: Jermaine Jackson on 05-11-2022 Cholesterol.total/Cho lesterol in HDL [Mass ratio] 3.8 {ratio} <5.0 [facility] Serum or plasma urea nitroge n measurement (mass/volume)Ordered By: Jermaine Jackson on 05-11-2022 Urea nitrogen [Mass/Vol] 7 mg/dL 9-23 [facility] Triglyceride [Mass/volume] i n Serum or PlasmaOrdered By: Jermaine Jackson on 05-11-2022 Triglyceride [Mass/Vol] 208 mg/dL 35-149 [facility] Comment on above: TRIG ATP III [...] Disease Conrtrol and Prevention (CDC) test method. [facility] CARDIAC STRESS/REST INJE CTIONon 04-03-2022 [facility] CARDIAC STRESS/REST INJECTION Patient Name: ZAID MELLO STUDY: MYOCARDIAL PERFUSION STRESS TEST WITH LEXISCAN Performing facility: [facility], [address] [place] [address], [address], [place] [address] [facility] Provider: NONE PCP: Dr. Tayler Villasenor Supervising provider: Reji Adame DO, [facility] INDICATION: SOB; Pre-operative risk assessment for Lung scheduled at [place] on TBD. HISTORY: Gender: M; Age: 61 y/o ; Height: 175.26 cm; Weight: 764.0321527 kg. CAD; High Cholesterol; Previous AL; SOB; Lung mass Denies smoking. CABG on 2020. Cardiac catheterization on 2020. PTCA on 2020. COMPARISON: No comparison. ACCESSION NUMBER(S): [id number]; [id number]; [id number] ORDERING CLINICIAN: WALT BARRAGAN TECHNIQUE: ONE DAY [...] Electronically signed by: JUDY KABA MD Normal [facility] No Panel Informationon 04-03 Normal -[address] Work Phone: Office Visit (Cardiology)on 02-21-2022 Follow-up visit Diagnoses/Problems Assessed CAD (coronary artery disease) (414.00) (I25.10) S/P CABG (coronary artery bypass graft) (V45.81) (Z95.1) Status post insertion of drug eluting coronary artery stent (V45.82) (Z95.5) STEMI (ST elevation myocardial infarction) (410.90) (I21.3) Hyperlipidemia (272.4) (E78.5) Former smoker (V15.82) (Z87.891) QUIT 15 YEARS AGO 2006- SMOKED ABOUT 2 PPD Class 1 obesity [...] signing my name below, I, Margie Aguilera LPN,Fany, attest that this documentation has been prepared under the direction and in the presence of Dr. Walt Jackson DO. Please bring all medicines, vitamins, and herbal [...] has had previous CABG with subsequent inferior AL in March 2021 with primary revascularization of [...] negative for complaint. Vitals Vital Signs Recorded: [id number] 11:13AM Heart Rate62, L Radial Whocvxbz993, LUE, Sitting Ferhpfbwv68, LUE, Sitting Height5 ft 9 in Ysnbkd984 lb BMI Zqzjoepfwu15.93 kg/m2 BSA Calculated2.16 Tobacco Useb) No PHQ-2 [...] pedal pulses (more content not included)... Normal [facility] [employer] Tobacco Screening.on 022 Adult depression screening assessment No [facility] 250 DO Work Phone: Tobacco use status [facility] b) No [facility] 250 DO Work Phone: Laboratory - CoagulationOrde red By: Demetrio Flyod on 11-28-2021 PT Coag (PPP) [Time] 11.3 s 9.0-12.9 [facility] Platelet poor plasma interna tional normalized ratio (INR) by coagulation assay (relatOrdered By: Demetrio Floyd on 11-28-2021 INR Coag (PPP) [Relative time] 1.0 {INR} [facility] Comment on above: INR Therapeutic Rang [...] 11-28-2021 Platelets (Bld) [#/Vol] 207 10*3/uL 150-450 [facility] Glucose Glucometer (BldC) [M ass/Vol]Ordered By: [...] 11-21-2021 Bedside Glucose Comment Glu2: cleaned meter [facility] Vital Signs Date Time Vital Sign Value Performing Clinician Carlton foafna 11-30-2023 12:57-0500 Body height 176.5 cm Aziza Judie [employer] MANAGER-APPLIANCE SERVICER Work Phone: [facility] 11-30-2023 12:57-0500 Body mass index (BMI) [Ratio] 33.19 kg/m2 Aziza Judie [employer] MANAGER-APPLIANCE SERVICER Work Phone: [facility] 11-30-2023 12:57-0500 Body weight 103.42 kg Aziza Judie [employer] MANAGER-APPLIANCE SERVICER Work Phone: [facility] 11-30-2023 12:57-0500 Diastolic blood pressure 77 mm[Hg] Aziza Judie [employer] MANAGER-APPLIANCE SERVICER [facility] 11-30-2023 12:57-0500 Heart rate 70 /min Aziza Lynch [employer] MANAGER-APPLIANCE SERVICER Work Phone: [facility] 11-30-2023 12:57-0500 Systolic blood pressure 121 mm[Hg] Aziza Judie [employer] MANAGER-APPLIANCE SERVICER Work Phone: [facility] 11-28-2023 15:50-0500 Body height 176.5 cm Marcie ROSADO Work [facility] 11-28-2023 15:50-0500 Body mass index (BMI) [Ratio] 33.19 kg/m2 Marcie ROSADO Work Phone: [facility] 11-28-2023 15:50-0500 Body weight 103.42 kg Marcie ROSADO Work Phone: [facility] 11-28-2023 15:50-0500 Diastolic blood pressure 76 mm[Hg] Marcie ROSADO [facility]: [facility] 11-28-2023 15:50-0500 Heart rate 82 /min Marcie Green PA Work Phone: [facility] 11-28-2023 15:50-0500 Systolic blood pressure 121 mm[Hg] Marcie ROSADO Work Phone: [facility] 10-24-2023 10:30-0500 Body height 176.5 cm [facility] 2 [facility] 10-24-2023 10:30-0500 Body mass index (BMI) [Ratio] 33.19 kg/m2 [facility] 2 [facility] 10-24-2023 10:30-0500 Body weight 103.42 kg Pmh 2 [facility] 08-09-2023 08:30-0400 Body height 181.61 cm Mickie Hungирина Other [facility] Other 08-09-2023 08:30-0400 Body mass index (BMI) [Ratio] 30.67 kg/m2 Mickie Anabellban Other [facility] Other 08-09-2023 08:30-0400 Body temperature 97.3 [degF] Mickie Pippa Other [facility] Other 08-09-2023 08:30-0400 Body weight 101.15 kg Mickie Anabellban Other [facility] Other 08-09-2023 08:30-0400 Diastolic blood pressure 64 mm[Hg] Paulinojuan diego Das Other [facility] Other 08-09-2023 08:30-0400 Respiratory rate 20 /min Paulinojuan dieog Hungban Other [facility] Other 08-09-2023 08:30-0400 SaO2% (BldA) [Mass fraction] 97 % Mickie Das Other [facility] Other 08-09-2023 08:30-0400 Systolic blood pressure 120 mm[Hg] Mickie Das Other [facility] Other 10-04-2022 09:52-0500 Body height 175.26 cm Shaikh Alexisd Work Phone: [facility] 250 DO Work Phone: 10-04-2022 09:52-0500 Body mass index (BMI) [Ratio] 32.86 kg/m2 Shaikh Veliawad Work Phone: [facility] 250 DO Work Phone: 10-04-2022 09:52-0500 Body surface area Derived from formula 2.16 m2 Shaikh Veliawad Work Phone: [facility] 250 DO Work Phone: 10-04-2022 09:52-0500 Body weight 100.93 kg Shaikh Veliawad Work Phone: [facility] 250 DO Work Phone: 10-04-2022 09:52-0500 Diastolic blood pressure 76 mm[Hg] Shaikh Veliawad Work Phone: [facility] 250 DO Work Phone: 10-04-2022 09:52-0500 Heart rate 66 /min Shaikh Veliawad Work Phone: [facility] 250 DO Work Phone: 10-04-2022 09:52-0500 Systolic blood pressure 132 mm[Hg] Shaikh Kyawwwad Work Phone: [facility] 250 DO Work Phone: 07-28-2022 17:24-0400 Diastolic blood pressure 72 mm[Hg] MD Consuelo Villasenor Work Phone: [facility] 07-28-2022 17:24-0400 Heart rate 66 /min MD Consuelo Villasenor Work Phone: [facility] 07-28-2022 17:24-0400 Respiratory rate 18 /min MD Consuelo Villasenor Work Phone: [facility] 07-28-2022 17:24-0400 SaO2% (BldA) [Mass fraction] 96 % MD Consuelo Villasenor Work Phone: [facility] 07-28-2022 17:24-0400 Systolic blood pressure 112 mm[Hg] MD Consuelo Villasenor Work Phone: [facility] 07-28-2022 16:18-0400 Body temperature 97.3 [degF] MD Consuelo Villasenor Work Phone: [facility] 07-28-2022 14:14-0400 Body height 175.26 cm MD Consuelo Villasenor Work Phone: [facility] 07-28-2022 05:45-0400 Body weight 99.8 kg MD Consuelo Villasenor Work Phone: [facility] 05-12-2022 14:03-0400 Diastolic blood pressure 75 mm[Hg] MD Consuelo Villasenor Work Phone: [facility] 05-12-2022 14:03-0400 Heart rate 55 /min MD Consuelo Villasenor Work Phone: [facility] 05-12-2022 14:03-0400 Respiratory rate 16 /min MD Consuelo Villasenor Work Phone: [facility] 05-12-2022 14:03-0400 SaO2% (BldA) [Mass fraction] 97 % MD Consuelo Villasenor Work Phone: [facility] 05-12-2022 14:03-0400 Systolic blood pressure 119 mm[Hg] MD Consuelo Villasenor Work Phone: [facility] 05-11-2022 07:06-0400 Body height 177.8 cm MD Consuelo Villasenor Work Phone: [facility] 05-11-2022 07:06-0400 Body mass index (BMI) [Ratio] 31.9 kg/m2 MD Consuelo Villasenor Work Phone: [facility] 05-11-2022 07:06-0400 Body weight 101 kg MD Consuelo Villasenor Work Phone: [facility] 05-11-2022 00:00-0400 45 1 Consuelo Daphne Jacklyn Work Phone: [facility] 250 DO Work Phone: Comment on above: FSLDL 04-03-2022 12:00-0400 58 1 Consuelo Serna Jacklyn Work Phone: [facility] 250A [place] Work Phone: Comment on above: [id number] 03-08-2022 16:15-0400 Body height 181.61 cm Mikcie Das Other [facility] Other 03-08-2022 16:15-0400 Body mass index (BMI) [Ratio] 30.25 kg/m2 Mickie Das Other [facility] Other 03-08-2022 16:15-0400 Body temperature 97 [degF] Mickie Das Other [facility] Other 03-08-2022 16:15-0400 Body weight 99.79 kg Mickie Das Other [facility] Other 03-08-2022 16:15-0400 Diastolic blood pressure 74 mm[Hg] Mickie Das Other [facility] Other 03-08-2022 16:15-0400 Respiratory rate 20 /min Mickie Das Other [facility] Other 03-08-2022 16:15-0400 SaO2% (BldA) [Mass fraction] 96 % Mickie Das Other [facility] Other 03-08-2022 16:15-0400 Systolic blood pressure 130 mm[Hg] Mickie Das Other [facility] Other 02-21-2022 11:13-0400 Body height 175.26 cm No PCP None [facility] [employer]-[facility] 250 DO Work Phone: 02-21-2022 11:13-0400 Body mass index (BMI) [Ratio] 32.93 kg/m2 No PCP None [facility] 250 DO Work Phone: 02-21-2022 11:13-0400 Body surface area Derived from formula 2.16 m2 No PCP None [facility] 250 DO Work Phone: 02-21-2022 11:13-0400 Body weight 101.15 kg No PCP None [facility] 250 DO Work Phone: 02-21-2022 11:13-0400 Diastolic blood pressure 74 mm[Hg] No PCP None [facility] 250 DO Work Phone: 02-21-2022 11:13-0400 Heart rate 62 /min No PCP None [facility] [employer] 250 DO Work Phone: 02-21-2022 11:13-0400 Systolic blood pressure 118 mm[Hg] No PCP None [facility] 250 DO Work Phone: 11-30-2021 14:15-0500 Body height 181.61 cm Mickie Hungирина Other [facility] Other 11-30-2021 14:15-0500 Body mass index (BMI) [Ratio] 30.53 kg/m2 Mickie Hungирина Other [facility] Other 11-30-2021 14:15-0500 Body temperature 97 [degF] Mickie Hungирина Other [facility] Other 11-30-2021 14:15-0500 Body weight 100.7 kg Mickie Das Other [facility] Other 11-30-2021 14:15-0500 Diastolic blood pressure 78 mm[Hg] Mickie Hungирина Other [facility] Other 11-30-2021 14:15-0500 Respiratory rate 20 /min Mickie Hungирина Other [facility] Other 11-30-2021 14:15-0500 SaO2% (BldA) [Mass fraction] 99 % Mickie Hungирина Other [facility] Other 11-30-2021 14:15-0500 Systolic blood pressure 140 mm[Hg] Paulinojuan diego Das Other [facility] Other 11-28-2021 13:00-0500 Heart rate 64 /min MD Consuelo Villasenor Work Phone: [facility] 11-28-2021 13:00-0500 Respiratory rate 16 /min MD Consuelo Villasenor Work Phone: [facility] 11-28-2021 13:00-0500 SaO2% (BldA) [Mass fraction] 95 % MD Consuelo Villasenor Work Phone: [facility] 11-28-2021 11:40-0500 Diastolic blood pressure 75 mm[Hg] MD Consuelo Villasenor Work Phone: [phone] [place] [address] 11-28-2021 11:40-0500 Systolic blood pressure 122 mm[Hg] MD Consuelo Villasenor Work Phone: [facility] 11-28-2021 09:39-0500 Body height 175.26 cm MD Consuelo Villasenor Work Phone: [facility] 11-28-2021 09:39-0500 Body mass index (BMI) [Ratio] 32.6 kg/m2 MD Consuelo Villasenor Work Phone: [facility] 11-28-2021 09:39-0500 Body weight 100.24 kg MD Consuelo Villasenor Work Phone: [facility] 11-15-2021 11:30-0500 Body height 181.61 cm Mickie Das Other [employer] [facility] [employer] Other 11-15-2021 11:30-0500 Body mass index (BMI) [Ratio] 30.39 kg/m2 Mickie Das Other [facility] Other 11-15-2021 11:30-0500 Body temperature 97.9 [degF] Mickie Das Other [facility] Other 11-15-2021 11:30-0500 Body weight 100.25 kg Mickie Das Other [facility] Other 11-15-2021 11:30-0500 Diastolic blood pressure 76 mm[Hg] Mickie Das Other [facility] Other 11-15-2021 11:30-0500 Respiratory rate 20 /min Mickie Das Other [facility] Other 11-15-2021 11:30-0500 SaO2% (BldA) [Mass fraction] 96 % Mickie Das Other [facility] Other 11-15-2021 11:30-0500 Systolic blood pressure 134 mm[Hg] Mickie Das Other [facility] Other Encounters Encounter Date Encounter Type Care Provider Facility Start: 12-29-2023 Refill Aziza Lynch [employer] MANAGER-APPLIANCE SERVICER Work Phone: [facility] Start: 12-04-2023 End: 12-04-2023 ambulatory VEENA Barakat ANKUSH [facility] Start: 11-30-2023 End: 11-30-2023 ambulatory [facility] Start: 11-30-2023 End: 11-30-2023 Office outpatient visit 15 minutes Aziza Lynch [employer] MANAGER-APPLIANCE SERVICER Work Phone: [facility] Comment on above: Urinary retention (P rimary Dx); Gross hematuria Start: 11-28-2023 ambulatory MARCIE GREEN [facility] Start: 11-28-2023 End: 11-28-2023 Office outpatient visit 25 minutes Marcie Green PA Work Phone: [facility] Comment on above: Bladder stones (Prim seymour Dx); Benign prostatic hyperplasia with lower urinary tract symptoms, symptom details unspecified Start: 11-28-2023 End: 11-29-2023 ambulatory REJI ROMERO [facility] Start: 11-27-2023 End: 11-27-2023 ambulatory [facility] Ambulatory Start: 11-21-2023 Telephone encounter Odilon De Leon CMA [facility] Start: 11-19-2023 End: 11-20-2023 ambulatory Mariah Whiting MD Facility:[facility] Start: 11-05-2023 Telephone encounter Reji Romero MD Work Phone: [facility] Start: 11-05-2023 End: 11-05-2023 Evaluation and management of inpatient GISSELLENanette CARVER [facility] Start: 11-05-2023 End: 11-05-2023 Evaluation and management of inpatient REJI ROMERO [facility] Start: 10-30-2023 Orders Only Aziza PERAZA Work Phone: [facility] Start: 10-24-2023 End: 10-25-2023 ambulatory ISAÍAS VANCE [facility] Start: 10-24-2023 Encounter for other preprocedural examination SHAIKH LEXI [facility] Start: 10-24-2023 End: 10-24-2023 Patient encounter procedure [facility] Pre-Admission Testing [address] [place] [address] - Pre Admit Comment on above: Preop examination (P rimary Dx); Hypertension, unspecified type; Coronary artery disease, unspecified vessel or lesion type, unspecified whether angina present, unspecified whether sokaogon or transplanted heart; Chronic obstructive pulmonary disease, unspecified COPD type ([facility] Start: 10-24-2023 End: 10-24-2023 Preprocedural examination done Pm 2 [facility] Start: 10-01-2023 End: 10-02-2023 ambulatory Mariah Whiting MD Facility:[facility] [place] Start: 09-05-2023 ambulatory Facility:[facility] Start: 08-09-2023 End: 08-09-2023 ambulatory Mickie Hungирина Other [facility] Other Start: 08-09-2023 Office outpatient vi sit 25 minutes Mickie Das [facility] Start: 08-02-2023 End: 08-02-2023 ambulatory Colindreskwame Elliott Facility:[facility] Start: 08-02-2023 End: 08-02-2023 ambulatory MD Shaikh Elliott Work Phone: [facility] Work Phone: Start: 08-02-2023 End: 08-02-2023 Patient encounter procedure MD Shaikh Elliott Work Phone: [facility]-MRI [place] Work Phone: Start: 06-26-2023 Rx Renewal Shaikh Alexisd Work Phone: [facility] 250 DO Work Phone: Start: 05-25-2023 Rx Renewal Shaikh Alexisd Work Phone: [facility] 250 DO Work Phone: Start: 05-02-2023 Rx Renewal Shaikh Alexisd Work Phone: [facility] 250 DO Work Phone: Start: 04-18-2023 Telephone encounter Shaikh Velia escamilla Work Phone: [facility] 250 DO Work Phone: Start: 12-08-2022 End: 12-08-2022 ambulatory Mickie Das Other [facility] Other Start: 12-08-2022 Telephone encounter Paulinojuan diego Pippa [facility] [employer] Work[employer] Start: 11-20-2022 Rx Renewal Shaikh Alexisd Work Phone: [facility] 250 DO Work Phone: Start: 10-04-[address] Walt Jackson Facility: Start: 10-04-2022 Office outpatient vi sit 25 minutes Shaikh Lexi Work Phone: [facility] 250 DO Work Phone: Start: 08-04-[address] Walt Jackson Facility: Start: 07-28-2022 ambulatory Consuelo Villasenor Facility:[id number] Start: 07-27-[address] Walt Jackson Facility:[id number] Start: 07-26-2022 ambulatory Consuelo Villasenor Facility:[id number] Start: 07-26-2022 End: 07-28-2022 Evaluation and management of inpatient MD Consuelo Villasenor Work Phone: [facility] [place] [facility] Start: 07-26-2022 End: 07-28-2022 observation encounter MD Consuelo Villasenor Work Phone: [facility] Work Phone: Start: 07-26-2022 End: 07-26-2022 ambulatory SABINO COLES Facility:H1 Start: 06-28-2022 Telephone encounter Consuelo ortega Work Phone: [facility] 250 DO Work Phone: Start: 06-09-2022 AUDIT Consuelo Salgado erhornanette Work Phone: [facility] 250 DO Work Phone: Start: 05-30-2022 End: 05-30-[address] ADRIANA NAGY Facility:H1 Start: 05-12-[address] Walt Jackson Facility:90 Start: 05-12-2022 [facility], Provider: Walt Jackson, Status: Pen, Time: 9:00 AM Consuelo Villasenor Work Phone: [facility] 250 DO Work Phone: Start: 05-12-2022 End: 05-12-2022 Admission to same day surgery center MD Consuelo Villasenor Work Phone: [facility]-Medical I D Sales Start: 05-11-2022 Chart Update Consuelo gong Work Phone: [facility] 250 DO Work Phone: Start: 05-11-2022 End: 05-11-2022 Patient encounter procedure MD Consuelo Villasenor Work Phone: [facility]-Pre-Surgical Testing Start: 05-10-2022 Telephone encounter Consuelo ortega Work Phone: [facility] 250 DO Work Phone: Start: 04-03-2022 Patient encounter procedure Consuelo Villasenor Work Phone: [facility] 250A [place] Work Phone: Start: 03-08-2022 End: 03-08-2022 ambulatory Mickie Das Other [facility] [employer] Other Start: 03-08-2022 Office outpatient vi sit 25 minutes Kamjuan diego Das [facility] Start: 02-21-2022 Office outpatient vi sit 15 minutes No PCP None [facility] 250 DO Work Phone: Start: 02-21-[address] Walt Jackson Facility: Start: 02-15-2022 End: 02-15-2022 Patient encounter procedure MD Consuelo Villasenor Work Phone: [facility]-CT Scan [place] Start: 02-06-2022 Rx Renewal Referring Prov ider Unknown [facility] 250 DO Work Phone: Start: 01-25-2022 End: 01-25-2022 ambulatory Kamal Chaban Other [facility] Other Start: 01-25-2022 Telephone encounter Kamal Chaban [facility] Start: 01-04-2022 End: 01-04-2022 Patient encounter procedure MD Consuelo Villasenor Work Phone: [facility]-Respiratory Therapy Start: 12-26-2021 End: 12-26-2021 ambulatory Kamal Chaban Other [facility] Other Start: 12-26-2021 Telephone encounter Kamal Chaban [facility] Start: 12-05-2021 End: 12-05-2021 Patient encounter procedure MD Consuelo Villasenor Work Phone: [facility]-XRay [facility] Start: 11-30-2021 End: 11-30-2021 ambulatory Kamal Chaban Other [facility] Other Start: 11-30-2021 Office outpatient vi sit 25 minutes Kamal Chaban [facility] Start: 11-29-2021 End: 11-29-2021 Patient encounter procedure MD Consuelo Villasenor Work Phone: [facility]-XRay [place] Start: 11-28-2021 End: 11-28-2021 Admission to same day surgery center MD Consuelo Villasenor Work Phone: [facility]-CT Scan [place] Start: 11-21-2021 End: 11-21-2021 Patient encounter procedure MD Consuelo Villasenor Work Phone: [facility]-Pet Scan Start: 11-15-2021 End: 11-15-2021 ambulatory Kamal Chaban Other [facility] Other Start: 11-15-2021 Office outpatient ne w 45 minutes Kamal Chaban [facility] Patient encounter status Shaikh Lexi Work Phone: [facility] 250 DO Work Phone: Procedures Date Procedure Procedure Detail Performing Clinician Start: 11-30-2023 Follow-up visit Follow-up AZIZA LYNCH Start: 11-28-2023 MEASURE POST VOID RESIDUAL Marcie Ding rphy PA Work Phone: Start: 11-28-2023 Urnls dip stick/tablet rgnt auto w/o microscopy Marcie Green PA Work Phone: Start: 08-02-2023 XR pre/post mri xray MD [...] Treatment Date Care Activity Detail Author Start: 12-24-2024 Tobacco Screening Tobacco Screening [facility] Start: 11-30-2024 Adult BMI Screening Adult BMI Screen ing [facility] Start: 11-28-2024 Adult BMI Screening Adult BMI Screen ing [facility] Start: 11-28-2024 Tobacco Screening Tobacco Screening [facility] Start: 11-05-2024 Adult BMI Screening Adult BMI Screen ing [facility] Start: 11-05-2024 Tobacco Screening Tobacco Screening [facility] Start: 10-29-2024 Tobacco Screening Tobacco Screening [facility] Start: 10-24-2024 Adult BMI Screening Adult BMI Screen ing [facility] Start: 10-24-2024 Tobacco Screening Tobacco Screening [facility] Start: 02-27-2024 End: 02-27-2024 Patient encounter procedure 02/27/2024 11:30 AM EDT Office Visit [facility] [address] [place] [address] A [facility] [place] [address] Reji Romero MD [address] [place] [address] [facility] Start: 02-18-2024 End: 02-18-2024 Admission to same day surgery center 02/18/2024 9:00 AM EDT - 02/18/2024 10:30 AM EDT Surgery [facility] [address] [place] [phone] Reji Romero MD [address] [place] [address] CYSTOSCOPY BIPOLAR TRANSURETHRAL RESECTION PROSTATE [64147 (CPT )] [facility] Comment on above: CYSTOSCOPY BIPOLAR T RANSURETHRAL RESECTION PROSTATE [65058 (CPT )] Start: 02-18-2024 Subsequent hospital visit by physician 02/18/2024 9:00 AM EDT Hospital Encounter [facility] [address] [place] [phone] Reji Romero MD [address] [place] [address] [facility] Start: 02-18-2024 End: 02-18-2024 Trurl electrosurg rescj prostate bleed complete CYSTOSCOPY BIPOLAR TRANSURETHRAL RESECTION PROSTATE Bladder outlet obstruction 02/18/2024 9:00 AM EDT [facility] Start: 02-05-2024 End: 02-05-2024 Patient encounter procedure 02/05/2024 9:45 AM EDT Procedure visit [facility] - Pre Admit [address] [place] [phone] [facility] - Pre Admit Start: 01-04-2024 End: 01-04-2024 Patient encounter procedure 01/04/2024 8:45 AM EST Office Visit [facility] - Medical Oncology [address] [place] [phone] Chun Alvarez MD [address] [facility] [address] [place] [id number] [facility] - Medical Oncology Start: 12-31-2023 End: 12-31-2023 Patient encounter procedure 12/31/2023 3:30 PM EST Appointment [facility] - CT Imaging [address] [place] [phone] Chun Alvarez MD [address] [facility] [address] [place] [address] [facility] - CT Imaging Start: 12-24-2023 End: 12-24-2023 Patient encounter procedure 12/24/2023 12:45 PM EST Office Visit [facility] [address] [place] [address] A [facility] [place] [address] Reji Romero MD [address] [place] [address] [facility] Start: 12-04-2023 End: 12-04-2023 ambulatory 12/04/2023 9:00 AM EST Support Visit [facility] [address] [place] [address] A [facility] [place] [place] [address] Veena Casiano MD [address] [place] [address] [facility] Start: 11-05-2023 End: 11-05-2023 Litholapaxy smpl/sm <2.5 cm LASER CYSTOSCOPY LITHOLAPAXY Bladder stones Benign prostatic hyperplasia with lower urinary tract symptoms, symptom details unspecified 11/05/2023 8:12 AM EST [facility] Start: 11-05-2023 End: 11-05-2023 Admission to same day surgery center 11/05/2023 8:00 AM EST - 11/05/2023 9:00 AM EST Surgery [facility] - Surgery [address] [place] [phone] Reji Romero MD [address] [place] [id number] CYSTOSCOPY LITHOLAPAXY [facility] Comment on above: CYSTOSCOPY LITHOLAPA XY Start: 11-05-2023 End: 11-05-2023 Anesthesia consultation 11/05/2023 8:00 AM EST Anesthesia Event [facility] [address] [place] [address] Gisselle Carver, DO [address] [place] [address] [facility] Start: 11-05-2023 End: 11-05-2023 CYSTOSCOPY LITHOLAPAXY CYSTOSCOPY LITHOLAPAXY Bladder stones Benign prostatic hyperplasia with lower urinary tract symptoms, symptom details unspecified 11/05/2023 8:00 AM EST [facility] Start: 11-05-2023 Subsequent hospital visit by physician 11/05/2023 8:00 AM EST Hospital Encounter [facility] [address] [place] [address] Reji Romero MD [address] [place] [id number] [facility] Start: 10-03-2023 FUV, Provider: Walt Jackson, Status: Carlos, Time: 10:00 AM FUV, Provider: Walt Jackson, Status: Carlos, Time: 10:00 AM [facility] 250 DO Work Phone: Start: 06-29-2023 Influenza vaccination Influenza Vacc ine [facility] Start: 10-04-2022 FUV, Provider: Walt Jackson, Status: Carlos, Time: 9:40 AM FUV, Provider: Walt Jackson, Status: Carlos, Time: 9:40 AM [facility] Work Phone: Start: 07-28-2022 [facility] Start: 07-26-2022 Hospital admission [facility] Start: 07-26-2022 Referral to real estate office supervisor [facility] Start: 07-26-2022 [facility] Start: 05-12-2022 End: 05-12-2022 [facility] Start: 02-21-2022 FUV, Provider: Walt Jackson, Status: Pen, Time: 9:50 AM FUV, Provider: Walt Jackson, Status: Pen, Time: 9:50 AM [facility] 250 DO Work Phone: Start: 1979 Administration of varicella zoster vaccine Zoster (Shingles) Vaccine (1 of 2) [facility] Start: 1979 DTaP,Tdap and Td Vaccines (1 - Tdap) DTaP,Tdap and Td Vaccines (1 - Tdap) [facility] Start: 1978 Adult BMI Follow Up Plan Adult BMI Follow Up Plan [facility] Start: 1972 Depression Screening Depression Scre [facility] Patient Education [facility] Work Phone: Patient referral [facility] Work Phone: Payers Date Payer Category Payer Medicaid [id number] 2023 Self-pay [id number] 2022 Unknown 2022 Unknown [id number] 2022 Private Health Insurance [id number] 1960 Unknown [id number] ..840.1.104598.3.579.2.593 1960 Unknown [id number] .840.1.900627.3.579.2.593 1960 Unknown [id number] .840.1.919125.3.579.2.356 1960 Unknown [id number] 2.16.840.1.511551.3.579.2.356 1960 Unknown [id number] 2.16.840.1.678563.3.579.2.356 1960 Unknown [id number] 2.16.840.1.553651.3.579.2.356 1960 Unknown [id number] 2.16.840.1.317701.3.579.2.356 1960 Unknown [id number] 2.16.840.1.057721.3.579.2.356 1960 Unknown [id number] 2.16.840.1.397202.3.579.2.356 1960 Unknown [id number] 2.16.840.1.718811.3.579.2.727 1960 Unknown [id number] 2.16.840.1.644789.3.579.2.196 1960 Unknown [id number] 2.16.840.1.878273.3.579.2.196 1960 Unknown [id number] 2.16.840.1.395867.3.579.2.124 4 1960 Unknown [id number] 2.16.840.1.447563.3.579.2.128 6 1960 Unknown [id number] 2.16.840.1.660770.3.579.2.128 6 1960 Unknown [id number] 2.16.840.1.685455.3.579.2.128 6 1960 Unknown [id number] 2.16.840.1.271139.3.579.2.128 6 1960 Unknown [id number] 2.16.840.1.543116.3.579.2.128 6 1960 Unknown [id number] 2.16.840.1.971453.3.579.2.128 6 1960 Unknown [id number] 2.16.840.1.630122.3.579.2.128 6 1960 Unknown [id number] 2.16.840.1.256831.3.579.2.128 6 1960 Unknown [id number] 2.16.840.1.004388.3.579.2.128 6 1960 Unknown [id number] 2.16.840.1.513196.3.579.2.128 6 1960 Unknown [id number] 2.16.840.1.290286.3.579.2.128 6 1959 Unknown [id number] Medicaid [employer] [id number] Unknown HCAP/HFA/FAP Active [id number] Unknown [id number] 2.16.840.1.759874.3.579.2.531 Unknown [id number] Social History Date Type Detail Facility Start: 12-06-2020 End: 10-24-2023 No alcohol use No alcohol use [facility] Other Comment on above: QUIT 15 YEARS AGO 20 06- SMOKED ABOUT 2 PPD; Start: 11-28-2021 End: 09-05-2023 Tobacco smoking status DEIS Ex-smoker (finding) [facility] Start: 1960 Sex Assigned At Male [facility] Start: 12-06-2020 End: 10-24-2023 Sex Assigned At [facility] Other End: 05-24-2005 History of tobacco use Current smoker [facility] End: 05-24-2005 History of tobacco use Cigarette Smoker [facility] Start: 09-05-2023 Tobacco use and exposure Smokeless tobacco non-user [facility] Start: 10-24-2023 End: 12-24-2023 Alcohol intake Current non-drinker of alcohol (finding) [facility] Start: 1960 Sex Assigned At Not on file [facility] Medical Equipment Procedure Code Equipment Code Equipment Origin al Text Equipment Identifier Dates Drug-eluting coronary artery stent, [id number] lymer-coated ()[id number] FDA Start: 04-27-2021 Femoral artery closure plug/patch, synthetic polymer ()[id number] FDA Start: 04-27-2021 Lens 16.0 Paco Sn 60wf - [id number] - [id number] Start: 12-27-2017 Lens 16.0 Paco Sn 60wf - [id number] - [id number] Start: 02-28-2018 Goals Date Patient Goal Desired Activity /State Personal health goal Comment on above: Formatting of this n ote might be different from the original. Evaluation of progress towards goal: Patient will discharge home with , self care. - Martin Arroyo RN 11/30/22 11:39 AM Functional Status Date Assessment Result Facility 07-28-2022 Functional status Patient at [facility] Work Phone: Mental Status Date Assessment Result Facility 07-28-2022 Cognitive function Cognitive Sta tus Patient at [facility] Work Phone: Clinical Notes 12-27-2014 to 11-30-2023 KARMEN Hendricks - 11/30/2023 1:00 PM ESTAssessment & Plan Note - ALONZO Johnson - 11/28/2023 5:24 PM ESTAssessment & Plan Note - ALONZO Johnson - 11/28/2023 5:24 PM EST Note Date & Type Note Facility 11-30-2023 History of Presen t illness Narrative Images from the original note were not included. [address] [facility] [address] Patient: Zaid Mello Date of : 1960 Encounter Date: 11/30/2023 History of Present Illness: Chief Complaint: hematuria The patient is a 63 y.o. male, an established patient, and is here for hematuria. Patient recently had Covarrubias catheter placed 11/28/2023 for urinary retention. PVR was 576 cc. Urine culture was sent which was subsequently negative. Patient's state he had significant hematuria yesterday. Today, his urine is significantly more clear. Patient did stop Plavix 2 days ago and states he no longer needs per his heart doctor. Patient is requesting to have Covarrubias catheter removed today. Did have a long discussion with the patient and his , feel it is best to leave catheter in place until his scheduled void trial 12/04/2023. He is in agreement and we will proceed as scheduled. I did advise patient and his it anytime he has issues with the catheter draining, he needs to be seen in ER. Summary of old records:Notes from Marcie Green PA-C 11/28/2023 The patient is a 63 y.o. male, an established patient, and is here for blood in the urine. He is s/p LASER CYSTOSCOPY LITHOLAPAXY stone burden approximately 2 cm on 11/05/23 Two weeks after the procedure, he started to have dysuria, gross hematuria and clots. Last night, his urine was black/green. He is no longer passing clots. He is taking Flomax bid but has difficulty voiding. He has daytime frequency and nocturia x5. No fever. Postvoid residual as measured by bladder scan is 576 cc He dropped off a urine specimen for culture earlier today. This is still pending. He agreed to catheterization. Please see attached notes Urinalysis today: Recent Labs 11/28/23 1609 EXTPOCURBS Negative EXTPOCUKET Trace EXTPOCUPRO 2+ EXTPOCUNIT Negative EXTPOCUBLD Large EXTPOCUPH 6.0 EXTPOCULEE Trace Last BUN and creatinine: Lab Results Component Value Date BUN 14 10/24/2023 Lab Results Component Value Date CREATININE 0.91 10/24/2023 Last PSA: Lab Results Component Value Date PSA 1.46 09/05/2023 PSA 2.06 06/01/2022 PSA 1.36 07/30/2020 Lab Results Component Value Date PROSTATICSP 4.47 (H) 07/20/2023 Additional Lab/Culture results: None Imaging Reviewed during this Office Visit: None (Results were independently reviewed by physician and radiology report verified) Past Medical, Family, and Social History Update: The following portions of the patient's history were reviewed and updated as appropriate: allergies, current medications, past family history, past medical history, past social history, past surgical history and problem list. Past Medical History: Diagnosis Date Anesthesia emergence dysphoria BPH (benign prostatic hypertrophy) CAD (coronary artery disease) Cardiovascular disease Cataract Chest pain COPD (chronic obstructive pulmonary disease) ([facility]) COPD, moderate ([facility]) 04/09/2017 Emphysema of lung ([facility]) Hyperlipemia Hypertension Injury of back Lung cancer ([facility]) right lower lobe thoracotomy 11/2022 Myocardial infarction [place] Right lower lobe pulmonary nodule Seizures ([facility]) had from ages [age], none since age 27 Shortness of breath Visual impairment Past Surgical History: Procedure Laterality Date BRONCHOSCOPY WITH FLUORO N/A 05/24/2017 Performed by Maritza Jang DO at [facility] CATHETER[facility]ATION 03/2022 stent placed CORONARY ARTERY BYPASS GRAFT 01/16/2006 Triple DAVINCI THORACOTOMY ( RIGHT LOWER LOBE WEDGE RESECTION) , RIGHT LOBECTOMY,MEDIASTINAL LYMPH NODE DISECTION LYSIS OF PLEURAL ADHESIONS N/A 11/29/2022 Performed by Walt Barragan MD at [facility] LASER CYSTOSCOPY LITHOLAPAXY N/A 11/05/2023 Performed by Reji Romero MD at [facility] LIPOMA RESECTION PHACO KELMAN I IMPLANT INTRAOCULAR LENS Right 02/28/2018 Performed by Lashay Bui MD at [facility] PHACO KELMAN I IMPLANT INTRAOCULAR LENS Left 12/27/2017 Performed by Lashay Bui MD at [facility] SKIN BIOPSY excision of lypoma Family History Problem Relation Age of Onset Diabetes Father Heart disease Father Cancer Sister Stroke Maternal Grandmother No Known Problems Mother Current Outpatient Medications Medication Sig Dispense Refill aspirin 81 mg Take 1 tablet (81 mg total) by mouth in the morning. atorvastatin (LIPITOR) 40 mg tablet Take 1 tablet (40 mg total) by mouth daily. 30 tablet 6 isosorbide mononitrate (IMDUR) 60 mg 24 hr tablet Take 1 tablet (60 mg total) by mouth daily. metoprolol tartrate (LOPRESSOR) 25 mg tablet TAKE 1 TABLET BY MOUTH TWICE A DAY 180 tablet 3 tamsulosin (FLOMAX) 0.4 mg capsule TAKE 1 CAPSULE BY MOUTH EVERY EVENING 90 capsule 1 tamsulosin (FLOMAX) 0.4 mg capsule Take 1 capsule (0.4 mg total) by mouth in the morning and at bedtime for 180 days. 60 capsule 5 clopidogreL (PLAVIX) 75 mg tablet Take 1 tablet (75 mg total) by mouth in the morning. (Patient not taking: Reported on 11/28/2023) levoFLOXacin (LEVAQUIN) 500 mg tablet Take 1 tablet (500 mg total) by mouth in the morning for 7 days. (Patient not taking: Reported on 11/30/2023) 7 tablet 0 No current facility-administered medications for this visit. (All medications reviewed and updated by provider since last office visit or hospitalization) Allergies: No known drug allergies Tobacco History: Social History Tobacco Use Smoking Status Former Types: Cigarettes Quit date: 05/24/2005 Years since quittin.5 Smokeless Tobacco Never (If patient a smoker, smoking cessation counseling offered) Social History: Social History Substance and Sexual Activity Alcohol Use No Review of Systems: General: Negative for chills and fever. Cardiovascular: Negative for chest pain and shortness of breath. Gastrointestinal: Negative for constipation, diarrhea, nausea, and vomitting. -per HPI Physical Exam: Ht 176.5 cm (5' 9.5 ) Wt 103.4 kg (228 lb) BMI 33.19 kg/m Constitutional: He appears well-developed. No distress. Pulmonary/Chest: Effort normal. No respiratory distress. Neurological: He is alert and oriented for age. Gait normal. Nursing note and vitals reviewed. Assessment and Plan: There are no diagnoses linked to this encounter. Problem List None Follow-up: As scheduled KARMEN MCDONALD This note was created with the assistance of a speech recognition program. While intending to generate a timely document that accurately reflects the content of the visit, no guarantee can be provided that every grammatical or spelling mistake has been or will be identified or corrected. Thank you for your understanding. KARMEN Hendricks 11/30/23 1350 documented in this encounter [facility] 11-28-2023 Evaluation + Plan note Associated Problem(s): Benign prostatic hyperplasia with lower urinary tract symptoms He has a follow-up with Dr. Romero in a few weeks. [facility] 11-28-2023 Miscellaneous Notes Associated Problem(s): Benign prostatic hyperplasia with lower urinary tract symptoms He has a follow-up with Dr. Romero in a few weeks. documented in this encounter [facility] 11-28-2023 History of Presen t illness Narrative Images from the original note were not included. [address] [place] [address] [facility] [address] Patient: Zaid Mello Date of : 1960 Encounter Date: 11/28/2023 History of Present Illness: The patient is a 63 y.o. male, an established patient, and is here for blood in the urine. He is s/p LASER CYSTOSCOPY LITHOLAPAXY stone burden approximately 2 cm on 11/05/23 Two weeks after the procedure, he started to have dysuria, gross hematuria and clots. Last night, his urine was black/green. He is no longer passing clots. He is taking Flomax bid but has difficulty voiding. He has daytime frequency and nocturia x5. No fever. Postvoid residual as measured by bladder scan is 576 cc He dropped off a urine specimen for culture earlier today. This is still pending. He agreed to catheterization. Please see attached notes Urinalysis today: Recent Labs 11/28/23 1609 EXTPOCURBS Negative EXTPOCUKET Trace EXTPOCUPRO 2+ EXTPOCUNIT Negative EXTPOCUBLD Large EXTPOCUPH 6.0 Last BUN and creatinine: Lab Results Component Value Date BUN 14 10/24/2023 Lab Results Component Value Date CREATININE 0.91 10/24/2023 Last PSA: Lab Results Component Value Date PSA 1.46 09/05/2023 PSA 2.06 06/01/2022 PSA 1.36 07/30/2020 Lab Results Component Value Date PROSTATICSP 4.47 (H) 07/20/2023 Past Medical, Family, and Social History Update: The following portions of the patient's history were reviewed and updated as appropriate: allergies, current medications, past family history, past medical history, past social history, past surgical history and problem list. Past Medical History: Diagnosis Date Anesthesia emergence dysphoria BPH (benign prostatic hypertrophy) CAD (coronary artery disease) Cardiovascular disease Cataract Chest pain COPD (chronic obstructive pulmonary disease) ([facility]) COPD, moderate ([facility]) 04/09/2017 Emphysema of lung ([facility]) Hyperlipemia Hypertension Injury of back Lung cancer ([facility]) right lower lobe thoracotomy 11/2022 Myocardial infarction ([facility] Right lower lobe pulmonary nodule Seizures ([facility]) had from ages [age], none since age 27 Shortness of breath Visual impairment Past Surgical History: Procedure Laterality Date BRONCHOSCOPY WITH FLUORO N/A 05/24/2017 Performed by Maritza Jang DO at [facility] 03/2022 stent placed CORONARY ARTERY BYPASS GRAFT 01/16/2006 Triple DAVINCI THORACOTOMY ( RIGHT LOWER LOBE WEDGE RESECTION) , RIGHT LOBECTOMY,MEDIASTINAL LYMPH NODE DISECTION LYSIS OF PLEURAL ADHESIONS N/A 11/29/2022 Performed by Walt Barragan MD at [facility] LASER CYSTOSCOPY LITHOLAPAXY N/A 11/05/2023 Performed by Reji Romero MD at [facility] LIPOMA RESECTION PHACO KELMAN I IMPLANT INTRAOCULAR LENS Right 02/28/2018 Performed by Lashay Bui MD at [facility] PHACO KELMAN I IMPLANT INTRAOCULAR LENS Left 12/27/2017 Performed by Lashay Bui MD at [facility] SKIN BIOPSY excision of lypoma Family History Problem Relation Age of Onset Diabetes Father Heart disease Father Cancer Sister Stroke Maternal Grandmother No Known Problems Mother Current Outpatient Medications Medication Sig Dispense Refill aspirin 81 mg Take 1 tablet (81 mg total) by mouth in the morning. atorvastatin (LIPITOR) 40 mg tablet Take 1 tablet (40 mg total) by mouth daily. 30 tablet 6 isosorbide mononitrate (IMDUR) 60 mg 24 hr tablet Take 1 tablet (60 mg total) by mouth daily. metoprolol tartrate (LOPRESSOR) 25 mg tablet TAKE 1 TABLET BY MOUTH TWICE A DAY 180 tablet 3 tamsulosin (FLOMAX) 0.4 mg capsule TAKE 1 CAPSULE BY MOUTH EVERY EVENING 90 capsule 1 tamsulosin (FLOMAX) 0.4 mg capsule Take 1 capsule (0.4 mg total) by mouth in the morning and at bedtime for 180 days. 60 capsule 5 clopidogreL (PLAVIX) 75 mg tablet Take 1 tablet (75 mg total) by mouth in the morning. (Patient not taking: Reported on 11/28/2023) levoFLOXacin (LEVAQUIN) 500 mg tablet Take 1 tablet (500 mg total) by mouth in the morning for 7 days. 7 tablet 0 No current facility-administered medications for this visit. (All medications reviewed and updated by provider since last office visit or hospitalization) Allergies: No known drug allergies Tobacco History: Social History Tobacco Use Smoking Status Former Types: Cigarettes Quit date: 05/24/2005 Years since quittin.5 Smokeless Tobacco Never (If patient a smoker, smoking cessation counseling offered) Social History: Social History Substance and Sexual Activity Alcohol Use No Review of Systems: General: Negative for chills and fever. Cardiovascular: Negative for chest pain and shortness of breath. Gastrointestinal: Negative for constipation, diarrhea, nausea, and vomitting. Physical Exam: BP 121/76 Pulse 82 Ht 176.5 cm (5' 9.5 ) Wt 103.4 kg (228 lb) BMI 33.19 kg/m Constitutional: He appears well-developed. No distress. Pulmonary/Chest: Effort normal. No respiratory distress. Neurological: He is alert and oriented for age. Gait normal. Nursing note and vitals reviewed. Assessment and Plan: Zaid was seen today for blood in urine. Diagnoses and all orders for this visit: Bladder stones - Measure post void residual - POCT Urinalysis Auto, W/O Microscopy Benign prostatic hyperplasia with lower urinary tract symptoms, symptom details unspecified Other orders - levoFLOXacin (LEVAQUIN) 500 mg tablet; Take 1 tablet (500 mg total) by mouth in the morning for 7 days. Problem List Genitourinary Benign prostatic hyperplasia with lower urinary tract symptoms Overview ====11/28/23====s/p cystolitholapaxy 11/05/23. Recent dysuria, hematuria, and difficulty voiding. Will start Levaquin and watch for final culture results. Cath inserted today. Will void trial early next week ====09/05/23==== PVR 425. I told him to call if he wants to learn ISC, otherwise we will recheck in the short-term after increasing Flomax to 0.4 mg b.i.d.. 12/21/20: Lower urinary tract symptoms currently well controlled with tamsulosin. Refill given. Recheck 1 year with PSA Current Assessment & Plan He has a follow-up with Dr. Romero in a few weeks. Bladder stones - Primary Relevant Orders Measure post void residual (Completed) POCT Urinalysis Auto, W/O Microscopy (Completed) ALONZO JOHNSON This note was created with the assistance of a speech recognition program. While intending to generate a timely document that accurately reflects the content of the visit, no guarantee can be provided that every grammatical or spelling mistake has been or will be identified or corrected. Thank you for your understanding. ALONZO Johnson 11/28/23 1726 After Patient had his appointment with Marcie Green PA-C, she asked this nurse to place a covarrubias to irrigate the Patient's bladder. This nurse gathered supplies and prepped the Patient with Betadine swabs and Urojet. An 18 fr coude catheter was placed into the bladder with an immediate return of 750 mL greenish brown colored urine. No odor was noted at this time. After the bladder was drained, this nurse irrigated the bladder with 250 mL NS into a separate cylinder. The irrigated NS was clear with no green or brown coloration to it. This nurse did inform Marcie Green PA-C of the results of the irrigation and she did speak with the Patient and his again at this time. Patient did agree to keeping the covarrubias catheter in until he got some antibiotics and the urine culture came back. A leg bag was connected to the covarrubias catheter. Patient and his were taught how to empty the catheter bag, when to empty it, and how to change the night bag onto the catheter at . Per Marcie Green PA-C , Patient and his were taught how to deflate and take the catheter out if the covarrubias got too uncomfortable over the weekend. All questions and concerns were answered, Pt. And were told to call with any concerns at all, and to go to the ED if they were unable to reach the office after hours and thought it was necessary to get urgent care. Pt. Will call to schedule a covarrubias removal and follow up. documented in this encounter [facility] 11-21-2023 Miscellaneous Notes Patient called in stating he is still urinating blood clots as well as having blood in his urine. 'Patient would like to know if this was normal weeks after the procedure documented in this encounter [facility] 11-21-2023 Telephone encounter Note Patient called in stating he is still urinating blood clots as well as having blood in his urine. 'Patient would like to know if this was normal weeks after the procedure [facility] 11-05-2023 Miscellaneous Notes Have patient return the office in [place] about 4 weeks documented in this encounter [facility] 11-05-2023 Telephone encounter Note Have patient return the office in [place] about 4 weeks [facility] 10-24-2023 Instructions Alejandrina Mendoza RN - 10/24/2023 10:30 AM EST Preoperative Education Checklist- General Surgery date: 11/05/23 Surgery time: 8a Arrival time: 610a 1. Bring a photo ID and your insurance card with you the day of surgery. You will check in at the main lobby of the [facility]- registration desk is straight ahead as soon as you walk in. Tell them you are here for surgery. 2. If you have a Living Will/Durable Power of Manager [facility] for Health Care that is not on [...] after you have bathed. 5. NO nail somali/acrylic on at least one finger. If you are having a hand, wrist or foot surgery then all nail somali and artificial/acrylic nails must be removed from [...] please call the Preadmission Testing office at [phone], Mon.-Fri. 7 a.m.-3 p.m. 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) Jul, Chronic obstructive pulmonary disease, unspecified COPD type (ICD-10 - J44.9) Jul, Non-small cell lung cancer, unspecified laterality (ICD-10 - C34.90) [facility] Progress note Author Jaswinder Flores [facility] July 28, 2022 10:37am Note Date/Time July 28, 2022 10:34am [facility] [address] [place] [address] Hospitalist Progress Note Signed Patient: Zaid Mello MR#: [id number] : 1960 Acct:[id number] Age/Sex: 61 / M Adm Date: 2 Loc: Room: [address] [place] [address] Type: ADM INOo Attending Dr: Jaswinder Flores [...] Dose Route Start Last Admin Trade Name Thais PRN Reason Stop Dose Admin Acetaminophen 650 [...] Insuln.Pen SUBCUT 07/27/23 11:59 Not Given TID.WM.HS [facility] Protocol Isosorbide Mononitrate 30 mg 07/27/22 09:00 [...] questions answered Documented By: Jaswinder Flores MD 07/28/2208 26 Signed By: <Electronically signed by Jaswinder Flores MD> 07/28/[address] [place] [address] Ctr Work Phone: 1(925) 580-739409-29-2022 Consult note Author Jermaine Jackson [facility] July 27, 2022 5:13pm Note Date/Time July 27, 2022 5:03pm [facility] [address] [place] [address] Cardiology Consult Note Signed Patient: Zaid Mello MR#: [id number] : 1960 Acct:[id number] Age/Sex: 61 / M Adm Date: 2 Loc: Room: [address] [place] [address] Type: ADM INOo Attending Dr: Jaswinder Flores MD Copies to: MD Jermaine Srinivasan MD, DO~ Cardiology HPI History of Present Illness Consult Date: 07/27/22 Reason for Consult: Non-ST elevation AL HPI: Mr. Mello is a 61 year old male seen in interventional cardiology consultationat request of the hospitalist after [place] withnew onset chest discomfort syndrome initial [...] mild obesity, hyperlipidemia Impression/recommendations: Acute non-ST elevation AL, concern for subacute stent thrombosis due to [...] x10E3/uL Lymph # (Auto) 1.3 (1.00-4.8) x10E3/uL [place] # (Auto) 0.6 (0.0-0.8) x10E3/uL Eos # [...] myocardial infarction Documented By: Jermaine Jackson DO 07/27/221700 Signed By: <Electronically signed by Jermaine Jackson DO> 07/27/[address] [facility] Work Phone: 1(343) 614-727409-29-2022 Progress note Author Jaswinder Flores [facility] [facility] July 27[facility] 2022 11:27am Note Date/Time July 27, 2022 11:21am [facility] [address] [place] [address] Hospitalist Progress Note Signed Patient: Zaid Mello MR#: [id number] : 1960 Acct:[id number] Age/Sex: 61 / M Adm Date: 2 Loc: 3T Room: [address] [place] [address] Type: ADM INOo Attending Dr: Jaswinder Flores [...] 07/27/22 09:00 07/27/22 09:09 Aspirin 81 Mg Tablet.Dr SOUSA 07/27/23 08:59 81 mg DAILY LIZZ Administration [...] answered Documented By: Jaswinder Flores MD 07/27/22 18 Signed By: <Electronically signed by Jaswinder Flores MD> 07/27/[address] [place] [address] Work Phone: 1(893) 503-218209-28-2022 History and physical note Author Jaswinder Flores [facility] July 26, 2022 5:18pm Note Date/Time July 26, 2022 5:10pm [facility] [address] [place] [address] Hospitalist H&P Signed Patient: Zaid Mello MR#: [id number] : 1960 Acct:[id number] Age/Sex: 61 / M Adm Date: 2 Loc: Room: [address] [place] [address] Type: ADM IN Attending Dr: Jaswinder Flores MD Copies to: Consuelo Flores MD~ HPI DATE OF EXAMINATION: 07/26/22 CHIEF COMPLAINT: chest pain HISTORY OF PRESENT ILLNESS: Patient is a 61 year old male with past medical history of CABG x3, CAD s/p PCI in 04/27/21 stenting SVG to RCA, Hx of COPD presented to [facility] for chest pain. Patient reported that he [...] decided to go to the ER. At [place], initial EKG showed Qwaves in leads III and T wave inversions in inferior leads according to reports from [place]. Initial troponin was 40, and the second one was in 500s. They contacted our real estate office supervisor Dr. Jackson who accepted to be pension consultant on the case. Patient was started on full dose Lovenox at [facility]. Patient wastransferred to our [facility] for further evaluation and management and [...] patch was applied on his chest from [place]. States compliance with DAPT ASA and Brilinta [...] signed by Jaswinder Flores MD> 07/26/[address] [facility] Work Phone: 1(101) 134-671007-15-2022 Discharge summary Author Jermaine Jackson [facility] May 12, 2022 9:55am Note Date/Time May 12, 2022 9:52 am [facility] [address] [place] [address] Discharge Summary Signed Patient: Zaid Mello MR#: [id number] : 1960 Acct:[id number] Age/Sex: 61 / M Adm Date: 2 Loc: Room: Attending Dr: Jermaine Jackson DO Copies to: Consuelo Jackson, DO~ Providers Date of Discharge: 05/12/22 Discharging Provider: [...] Low-Cholesterol Additional Instructions: DISCHARGE INSTRUCTIONS FOR CARDIAC DATA KEYER PHONE NUMBER OF YOUR PHYSICIAN: [phone] PROCEDURE: Heart Cath The following instructions have [...] cold, numb, blue or white, call the real estate office supervisor immediately. 4. ACTIVITY: You are advised to [...] bottle, follow the instructions on the bottle. [facility] is not responsible for incorrect prescription [...] By: <Electronically signed by Jermaine Jackson DO> 05/12/22 0955 [facility] Work Phone: 1(130) 681-924507-15-2022 [facility]* Encounter Date Diagnosis Assessment Notes [...] Fungal infection of lung (ICD-10 - B49) [facility] Other 02-02-2022 Evaluation note* Encounter Date Diagnosis Assessment Notes Treatment Notes Treatment Clinical Notes Nov, Lung mass (ICD-10 - R91.8) Please give patient an excuse for work starting this past Sunday till this coming Nov, Chronic obstructive pulmonary disease, unspecified COPD type (ICD-10 - J44.9) [facility] Other 01-18-2022 Evaluation note* Encounter Date Diagnosis Assessment Notes Treatment Notes Treatment Clinical Notes Oct, Lung mass (ICD-10 - R91.8) PET scan to be done here, please confirm with patient. Also refer for CT-guided biopsy of right lower lobe mass Oct, Chronic obstructive pulmonary disease, unspecified COPD type (ICD-10 - J44.9) Oct, Dyspnea on exertion (ICD-10 - R06.00) Oct, Coronary artery disease involving sokaogon heart without angina pectoris, unspecified vessel or lesion type (ICD-10 - I25.10) [facility] Other 03-01-2015 History general Narrative - Reported* Type Description Date Medical History CAD Medical History hyperlipidemia Medical History COPD Surgical History CABG 12/2014 Hospitalization History as above [facility] Other 03-01-2015 History general Narrative - Reported* Type Description Date Medical History CAD Medical History hyperlipidemia Medical History COPD Medical History lung cancer Surgical History CABG 12/2014 Surgical History lung resection RLL 11/2022 Surgical History Teeth extraction 10/2022 Hospitalization History as above Hospitalization History [facility] 11/2022 [facility] Other Discharge summary Author Jaswinder Flores [facility] July 28, 2022 5:31pm Note Date/Time July 28, 2022 5:31pm [facility] [address] [place] [address] Discharge Summary Signed Patient: Zaid Mello MR#: [id number] : 1960 Acct:[id number] Age/Sex: 61 / M Adm Date: 2 Loc: Room: [address] [place] [address]: Jaswinder Flores MD Copies to: [...] to RCA, Hx of COPD presented to [facility] for chest pain.? Patient reported that he started having chest pain while he was walking, he states that there was substernal chest pain radiating to his left arm with numbness all the way down his left upper extremity, it has relieved with rest. Patient decided to go to ER for further evaluation.? At [place], initial EKG showed Q waves in leads III and T wave inversions in inferior leads according to reports from [place].? Initial troponin was 40, andthe second one was in 500s.? They contacted our real estate office supervisor Dr. Jackson who accepted to be pension consultant on the case.? Patient was started on full dose Lovenoxat [facility]. Patient was transferred to our [facility] for further evaluation and management and possible cardiac cath. During hospital stay, troponin levels down trended however there was a concern for subacute stent thrombosis due to recent antiplatelet therapy withdrawal for teeth extraction.? SHASHI risk score is 5-7 consistent with high risk for which real estate office supervisor proceeded with cardiac cath on 07/27 which [...] % (Auto) 58.5, Lymph % (Auto) 24.6, [place] % (Auto) 11.1, Eos % (Auto) 5.3, Baso % (Auto) 0.5, Neut # (Auto) 3.3, Lymph # (Auto) 1.4, [place] # (Auto) 0.6, Eos# (Auto) 0.3, Baso [...] Low-Cholesterol Additional Instructions: DISCHARGE INSTRUCTIONS FOR CARDIAC DATA KEYER PHONE NUMBER OF YOUR PHYSICIAN: [phone] PROCEDURE: Heart Cath The following instructions have [...] cold, numb, blue or white, call the real estate office supervisor immediately. 4. ACTIVITY: You are advised to [...] bottle, follow the instructions on the bottle. [facility] is not responsible for incorrect prescription [...] signed by Jaswinder Flores MD> 07/28/22 1731 [facility] Work Phone: Evaluation noteNo assessment information available [facility] Work Phone: Evalumxwfg noteNo InformationNort [employer] Other Evaluation note* Diagnosis Onset Date Resolution Status Angina pectoris acute Chest pain acute COPD (chronic obstructive pulmonary disease) acute History of coronary artery bypass graft x [address] elevation myocardial infarction (STEMI) acute Non-ST elevation myocardial infarction (NSTEMI), initial care episode acute Stable angina acute [facility] Work Phone: Evaluznamw note* Diagnosis Bladder stones- Primary Other calculus in bladder Benign prostatic hyperplasia with lower urinary tract symptoms Preop examination- Primary Unspecified pre-operative examination Hypertension, unspecified type Coronary artery disease, unspecified vessel or lesion type, unspecified whether angina present, unspecified whether sokaogon or transplanted heart Chronic obstructive pulmonary disease, unspecified COPD type ([facility]) Preop examination Unspecified pre-operative examination Hypertension, unspecified type Coronary artery disease, unspecified vessel or lesion type, unspecified whether angina present, unspecified whether sokaogon or transplanted heart Chronic obstructive pulmonary disease, unspecified COPD type (CMS-HCC) Preop examination Unspecified pre-operative examination Hypertension, unspecified type Coronary artery disease, unspecified vessel or lesion type, unspecified whether angina present, unspecified whether sokaogon or transplanted heart Chronic obstructive pulmonary disease, unspecified COPD type (CMS-HCC) Bladder stones Other calculus in bladder Benign prostatic hyperplasia with lower urinary tract symptoms, symptom details unspecified [facility] Diagnosis Bladder stones- Primary Other calculus in bladder Benign prostatic hyperplasia with lower urinary tract symptoms, symptom details unspecified documented in this encounter [facility]* Diagnosis Urinary retention- Primary Unspecified retention of urine Gross hematuria [facility] Additional Instructions DISCHARGE INSTRUCTIONS FOR CARDIAC DATA KEYER PHONE NUMBER OF YOUR PHYSICIAN: [phone] PROCEDURE: Heart Cath The following instructions have [...] cold, numb, blue or white, call the real estate office supervisor immediately. 4. ACTIVITY: You are advised to [...] bottle, follow the instructions on the bottle. [facility] is not responsible for incorrect prescription information provided by the patient during their visit. Do not stop your medications without consulting your health care provider. Please take the list with you to your next doctor's appointment. Follow up with PCP regarding diabetes your HbA1C was 6.9. [facility] Work Phone: InstructionsNot on filedocumented in this encounter [email or web address] SystemInstructionsNot on filedocumented in this encounter [email or web address] SystemInstructionsNot on filedocumented in this encounter [email or web address] SystemInstructionsNot on filedocumented in this encounter [email or web address] SystemInstructionsNot on filedocumented in this encounter [email or web address] SystemReason for referral (narrative)* Reason RLL mass Diagnosis 1 Lung mass (R91.8) Referral Organization [facility] Referring Provider First Name Mickie Referring Provider Last Name Pippa Referring Provider Specialty Pulmonary D iseases Referred Organization [facility] Referred Address [address] [place], [place],[address] Referred Provider Specialty Intervention al Radiology Referral Priority Routine General Notes Ivonne Santos 01:14:58 PM > follow CT guided biopsy in DI [employer] Other Family History Unknown Family Member Name Dates Details H/O [...] Stable angina Chief Complaint m54.41 Advance Directives Advance Directive Response Recorded Date/ Time Advance [...] has had previous CABG with subsequent inferior AL in March 2021 with primary revascularization of [...] Patient had remote CABG, recent non-ST elevation AL due to closure of negative right coronary however this was inconsequential because his sokaogon right coronary is already bypassed therefore he [...] By Contac t Referred To Contact Diagnoses Bladder stones Procedures Measure post void residual Marcie Green I, ALONZO [address] [place] [address] Referral ID Status Reason Start Date Expiration Date V isits Requested Visits Authorized [id number] Pending Review 11/28/2023 11/27/2024 1 1 Specialty Diagnoses / Procedures Referred By Contac t Referred To Contact Diagnoses Preop examination Hypertension, unspecified type Coronary artery disease, unspecified vessel or lesion type, unspecified whether angina present, unspecified whether sokaogon or transplanted heart Chronic obstructive pulmonary disease, unspecified COPD type ([facility]) Procedures ECG 12 lead Isaías Vance MD [address] [place] [address] Referral ID Status Reason Start Date Expiration Date V isits Requested Visits Authorized [id number] Pending Review 10/18/2023 10/17/2024 1 1 Additional [...] Primary Care Provider, Attending Pr ovider Active Leather Patcher Relationship Specialty Start Date End Date Shaikh Elliott MD [address] [place] [address] PCP - General Internal Medicine 10/31/22 Leather Patcher Relationship Specialty Start Date End Date Shaikh Elliott MD [address] [place] [address] PCP - General Internal Medicine 10/31/22 Leather Patcher Relationship Specialty Start Date End Date Shaikh Elliott MD [address] [place] [address] PCP - General Internal Medicine 10/31/22 Leather Patcher Relationship Specialty Start Date End Date Shaikh Elliott MD [address] [place] [address] PCP - General Internal Medicine 10/31/22 Leather Patcher Relationship Specialty Start Date End Date Shaikh Elliott MD [address] [place] [address] PCP - General Internal Medicine 10/31/22 Leather Patcher Relationship Specialty Start Date End Date Shaikh Elliott MD [address] [place] [address] PCP - General Internal Medicine 10/31/22 Goals [...] section and content) DATE CREATED AUTHOR 04/06/2022 [facility] DATE CREATED AUTHOR AUTHOR'S ORGANIZ ATION 07/31/2022 [facility] DATE CREATED AUTHOR AUTHOR'S ORGANIZ ATION 10/04/2022 [facility] DATE CREATED AUTHOR AUTHOR'S ORGANIZ ATION 10/05/2022 [facility] DATE CREATED AUTHOR AUTHOR'S ORGANIZ ATION 08/09/2023 [facility] DATE CREATED AUTHOR AUTHOR'S ORGANIZ ATION 09/06/2023 [facility] DATE CREATED AUTHOR AUTHOR'S ORGANIZ ATION 11/23/2023 [facility] DATE CREATED AUTHOR AUTHOR'S ORGANIZ ATION 12/01/2023 [facility] DATE CREATED AUTHOR AUTHOR'S ORGANIZ ATION 12/02/2023 [facility] DATE CREATED AUTHOR AUTHOR'S ORGANIZ ATION 12/02/2023 [facility] DATE CREATED AUTHOR AUTHOR'S ORGANIZ ATION 12/09/2023 [facility] REASON FOR VISIT (unrecogniz ed section and content) Reason Comments Blood in Urine Reason Comments Follow-up Reason Comments Med Refill FOR RECORDS PERTAINING TO PATIENTS WHO ARE [...] BE BASED ON THE PRIMARY CLINICAL RECORDS. [facility]. provides no warranty or guarantee of the accuracy or completeness of information in this document.
== END 2023-12-31 21:37 | disposition home or self-care (01) ==
LOC: LAB 21:36
PROVIDERS: PCP Internal Medicine; Visit Provider Internal Medicine
DX: N39.0 Urinary tract infection, site not specified (principal); R73.09 Other abnormal glucose
CPT/HCPCS: 87086; 87150; 87186

== ENCOUNTER 2024-01-08 08:56 | Outpatient (OUT) | payer BC, SELFPAY ==
--- NOTE | 2024-01-08 09:00 | US_ITS ---
The [address] [address] Patient Name: JEZ MELLO MRN: [id number] date: 1960 Sex: M Assigned Patient Location: US Current Patient Location: US Accession/Order Number: [id number] Exam Date: 01/08/2024 09:05 Report Date: 01/08/2024 10:15 At the request of: SHAIKH MILEY Procedure: US right upper quadrant EXAM: US right upper quadrant HISTORY: Abnormal CT Of Liver R93.2 COMPARISON: 05/30/2022 TECHNIQUE: Grayscale, color and Doppler FINDINGS: The liver appears normal in size and contour measuring 16.6 cm in length. Diffuse increase in hepatic echotexture. Identified in the right hepatic lobe is a 6.5 x 6.5 x 5.8 cm area of anechoic echogenicity with a few scattered internal low-level echoes. Hepatopedal flow in the main portal vein which measures 30 cm/s. The pancreas is poorly visualized due to bowel gas The gallbladder is normal in size. The wall measures 1.6 mm. Negative sonographic Green sign. The common bile duct measures 4.1 mm. The right kidney measures 11.1 x 5.9 x 6.8 cm. 3 mm echogenic focus, nonobstructing nephrolith. No hydronephrosis US/US right upper quadrant IMPRESSION: 6.5 cm right hepatic lobe cyst with some internal debris Electronically authenticated by: ISAÍAS PHILLIPS Date: 01/08/2024 10:15
== END 2024-01-08 08:57 | disposition home or self-care (01) ==
LOC: US 08:56
PROVIDERS: PCP Internal Medicine; Visit Provider Internal Medicine
DX: R93.2 Abnormal findings on diagnostic imaging of liver and biliary tract (principal); N39.0 Urinary tract infection, site not specified; R73.09 Other abnormal glucose; K76.89 Other specified diseases of liver
CPT/HCPCS: 76705

== ENCOUNTER 2024-02-14 13:08 | Outpatient (OUT) | payer BC, SELFPAY | END 2024-02-14 13:09 | disposition home or self-care (01) | LOC: PST 13:08 | PROVIDERS: PCP Internal Medicine; Visit Provider Surgery | DX: Z01.818 Encounter for other preprocedural examination (principal) ==

== ENCOUNTER 2024-02-19 09:42 | Day surgery (SDC) | payer BC, SELFPAY ==
--- NOTE | 2024-02-11 13:51 | PC.NURSE ---
Left message for patient to call to reschedule PAT appt. Patient did not answer when called this day.
[2024-02-19 09:53] VITALS: BP 166/68; PULSE 83; TEMP 36.1; O2SAT 97; BMI 31.7
[2024-02-19] MEDS: LACTATED RINGER'S SOLUTION 1,000 ML 50 ML IV (10:08)
[2024-02-19 13:05] VITALS: BP 105/60; PULSE 69; TEMP 36.8; O2SAT 95
--- NOTE | 2024-02-19 13:11 | PM.GSPRC ---
Date of procedure: 02/19/24 Indications for Procedure: diagnostic colonoscopy for positive cologuard test Pre-op diagnosis: diagnostic colonoscopy for positive cologuard test Post-op diagnosis: other (sigmoid diverticulosis ) Procedure: Previous colonoscopy: diagnostic colonoscopy for positive cologuard test PROCEDURE: The patient was given IV conscious sedation.? The patient's SPO2 remained above 90% throughout the procedure. The colonoscope was inserted per rectum and advanced under direct vision to the cecum without difficulty.? The prep was good.? Findings: Terminal ileum os: normal Cecum/Ascending colon: normal Transverse colon: normal Descending/Sigmoid colon: diverticulosis Rectum/Anus: examined in normal and retroflexed positions and was normal Withdrawal Time was (minutes): 10 The colon was decompressed and the scope was removed.? The patient tolerated the procedure well. Recommendations/Plan: 1.? Lifestyle and dietary modifications as discussed 2.? F/U in 10 years for repeat colonoscopy 3.? Discussed with the family Findings: sigmoid diverticulosis Anesthesia: MAC Surgeon: Zenon Cisse Procedure Summary: diagnostic colonoscopy for positive cologuard test Estimated blood loss (mL): 0 Complications: No Pathology: none sent Condition: stable Disposition: PACU
[2024-02-19 13:20] VITALS: BP 111/57; PULSE 63; O2SAT 96
[2024-02-19 13:35] VITALS: BP 109/58; PULSE 64; O2SAT 97
== END 2024-02-19 13:35 | disposition home or self-care (01) ==
PROVIDERS: PCP Internal Medicine; Visit Provider Surgery
PROC: (CPT 811; principal; 2024-02-19 11:00)
DX: R19.5 Other fecal abnormalities (principal); K57.30 Diverticulosis of large intestine without perforation or abscess without bleeding; Z85.118 Personal history of other malignant neoplasm of bronchus and lung; Z90.2 Acquired absence of lung [part of]; Z95.5 Presence of coronary angioplasty implant and graft; Z79.82 Long term (current) use of aspirin; N40.0 Benign prostatic hyperplasia without lower urinary tract symptoms; I25.10 Atherosclerotic heart disease of native coronary artery without angina pectoris; I25.2 Old myocardial infarction; E78.00 Pure hypercholesterolemia, unspecified; M47.816 Spondylosis without myelopathy or radiculopathy, lumbar region; Z87.891 Personal history of nicotine dependence; E66.9 Obesity, unspecified; Z68.32 Body mass index [BMI] 32.0-32.9, adult
CPT/HCPCS: 45378; J2704

== ENCOUNTER 2024-06-09 11:58 | Outpatient (OUT) | payer BC, SELFPAY ==
--- NOTE | 2024-06-09 12:02 | MR_ITS ---
[address] [address] Patient Name: JEZ MELLO MRN: [facility]:[id number] date: 1960 Sex: M Assigned Patient Location: MRI Current Patient Location: Accession/Order Number: [id number] Exam Date: 06/09/2024 12:19 Report Date: 06/10/2024 15:52 At the request of: SHAIKH MILEY Procedure: MR lumbar spine wo con EXAMINATION: MR lumbar spine wo con HISTORY: Low Back Pain M54.50 COMPARISON: No relevant comparison available. TECHNIQUE: A variety of imaging planes and parameters were utilized for visualization of suspected pathology. FINDINGS: For the purposes of numbering, sagittal T2 image # 8 extends from the 11th vertebral body superiorly to the S3 level inferiorly. PARASPINAL AREA: Normal with no visible mass. BONES: Normal alignment with no acute fracture or spondylolisthesis. Decreased T1 increased T2 and STIR pulse sequence signal lower half of the L2 and upper half of the L3 vertebral bodies likely Modic inflammatory change. CORD/CAUDA EQUINA: Normal caliber, contour, and signal intensity. DISC LEVELS: 12-L1: Disc space narrowing. No disc bulge or herniation. No central or foraminal stenosis L1-L2: Moderate to severe disc space narrowing and disc desiccation. Left foraminal disc protrusion. No central canal or foraminal stenosis L2-L3: Disc space narrowing and disc desiccation. Mild diffuse disc/osteophyte complex. Moderate ligamentum flavum hypertrophy and facet osteoarthropathy. Mild trefoil narrowing of the central canal. No right foraminal stenosis. Mild narrowing of the left neural foramen L3-L4: Disc desiccation. Mild diffuse disc/osteophyte complex. Moderate ligamentum flavum hypertrophy and facet osteoarthropathy. Mild trefoil narrowing of the central canal. No foraminal stenosis L4-L5: Disc space narrowing and disc desiccation. Moderate diffuse disc/osteophyte complex. Soft tissue signal right neural foramen best seen on sagittal image #9, axial image #12. No central canal or left foraminal stenosis. L5-S1: Disc space narrowing. 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
== END 2024-06-09 11:59 | disposition home or self-care (01) ==
LOC: MRI 11:58
PROVIDERS: PCP Internal Medicine; Visit Provider Internal Medicine
DX: M54.50 Low back pain, unspecified (principal)
CPT/HCPCS: 72148

== ENCOUNTER 2024-07-14 10:57 | Outpatient (OUT) | payer BC, SELFPAY ==
--- OUTSIDE RECORDS SUMMARY | 2024-07-14 11:14 | XMS_ITS | CCD ---
Author Organization [facility] Care Team Providers Care General Internal Medicine Doctor Name Role Phone Unknown, Referring Provider Unavailable Unav ailable Unavailable Unavailable MD Consuelo Villasenor Primary Care Provider MD Mickie Das Attending Provider MD Demetrio Floyd Attending Provider DO Grupo Daniel Jr Attending Provider DO [...] MD Jaswinder Flores Attending Provider NANDO Maldonado Other Provider Unavailable DO Jermaine Jackson Other Provider [phone] MD Frances Gayle Other Provider [phone] MD Walt Becker Other Provider [phone] MD Judy Kaba Other Provider [phone] MD Ottoniel Valdovinos Other Provider BOBY Oneill [...] Unavailable ZIEBGEOVANNA, DR SAUNDRA Naylor Consulting Unavailable SABINO COLES Attending Unavailable SABINO COLES Consulting Unavailable Shaikh Elliott Unavailable Manuel, Dr. Walt Hayden Referring Unava ilable Manuel, Dr. Walt Hayden Attending Unava ilable Manuel, Dr. Walt Hayden Attending Unava ilable Jacklyn, [facility] Unavai lable Manuel, Dr. Walt Hayden Referring Unava ilable Jacklyn, [facility] Unavai lable Manuel, Dr. Walt Hayden Attending Unava ilable Jacklyn, [facility] Unavai lable Jacklyn, [facility] Unavai lable Manuel, Dr. Walt Hayden Attending Unava ilable Manuel, Dr. Walt Hayden Attending Unava ilable Manuel, Dr. Walt Hayden Referring Unava ilable UNKNOWN, [facility] Primary Care Unavailable Manuel, Dr. Walt Hayden Referring Unava ilable Manuel, Dr. Walt Hayden Attending Unava ilable Unavailable Unavailable MD Jens Elliott Primary Care Provider MD Jens Elliott Attending Provider Shaikh Elliott Attending Unavailable Shaikh Elliott Primary Care Unavailable Shaikh Elliott Admitting Unavailable Shaikh Elliott MD Primary Care Provider Johanne RODRIGUEZ, Mariah Saldivar Attending Unavailable Johanne RODRIGUEZ, Mariah Saldivar Attending Unavailable AZIZA LYNCH Attending Unavailable [facility] Referring Unavailable [facility], [facility] Primary Care Unavailable VEENA CASIANO Attending [facility] Referring Unavailable [facility] Primary Care Unavailable MARCIE GREEN I Attending Unavailable [facility], [facility] Referring Unavailable [facility], [facility] Primary Care Unavailable VEENA CASIANO Attending Unavailable [facility] Referring Unavailable [facility] Primary Care Unavailable REJI ROMERO Attending Unavailable [facility], [facility] Referring Unavailable [facility], [facility] Primary Care Unavailable CORNELIO BIRMINGHAM Attending Unavailable CORNELIO [place] Referring Unavailable [facility], [facility] Primary Care Unavailable CORNELIO BIRMINGHAM Attending Unavailable [facility] Referring Unavailable [facility] Primary Care Unavailable [facility] Referring Unavailable [facility] Primary Care Unavailable ISAÍAS VANCE Attending Unavailable ISAÍAS VANCE Referring Unavailable [facility], [facility] Primary Care Unavailable ISAÍAS VANCE Referring Unavailable [facility] Primary Care Unavailable ISAÍAS VANCE Attending Unavailable ISAÍAS VANCE Referring Unavailable [facility] Primary Care Unavailable REJI ROMERO Admitting Unavailable REJI ROMERO Attending Unavailable REJI ROMERO Referring Unavailable [facility], [facility] Primary Care Unavailable GISSELLE CARVER Attending [facility] Primary Care Unavailable REJI ROMERO Referring Unavailable [facility], [facility] Primary Care Unavailable VEENA CASIANO Referring Unavailable [facility], [facility] Primary Care Unavailable [facility] Referring Unavailable [facility], [facility] Primary Care Unavailable [facility] Referring [facility]available [facility] Primary Care Unavailable WALT JACKSON Attending Unavailable [facility], [facility] Primary Care Unavailable [facility] Attending Unavailable JUNIE DONOVAN Attending Unavailable FA[facility]AD, [facility] Referring Unavailable FAWAD, [place] Attending Unavailable [facility], [facility] Attending Unavailable JUNIE PRIEST Attending Unavailable [facility], [facility] Referring Unavailable MAMADOU MILES Attending Unavailable [facility], [place] Referring Unavailable REBECA BURNS Attending Unavailable [facility], [place] Referring Unavailable JUNIE PRIEST Attending Unavailable [facility], [place] Referring Unavailable MAMADOU MILES Attending Unavailable [facility], [place] Referring Unavailable REBECA BURNS Attending Unavailable [facility], [place] Referring Unavailable JUNIE PRIEST Attending Unavailable [facility], [place] Referring Unavailable [facility], [place] Attending Unavailable TIMOTHY PHAN Attending Unavailable [facility], [place] Referring Unavailable REBECA BURNS Attending Unavailable [facility], [place] Referring Unavailable REBECA BURNS Attending Unavailable [facility], [place] Referring Unavailable KATY, REBECA Attending Unavailable [facility], [place] Referring Unavailable Medications Current Medications Medication Drug Class(es) [...] day Active finasteride 5 mg oral tablet (5 sources) 5-alpha Reductase Inhibitor Start: 12-24-2023 take [...] oral capsule (20 sources) alpha-Adrenergic Rudolph Start: 04-27-2021 End: 08-02-2024 take 1 capsule by mouth at bedtime tamsulosin (FLOMAX) 0.4 mg capsule TAKE 1 CAPSULE (0.4 MG TOTAL) BY MOUTH IN THE MORNING AND AT BEDTIME FOR 180 DAYS. 180 capsule 1 02/04/2024 08/02/2024 Active ticagrelor 90 mg oral tablet (18 [...] 10/25/2020 Active clopidogrel 75 mg oral tablet (18 sources) P2Y12 Platelet Inhibitor Start: 10-04-2022 End: 01-04-2024 take 1 tablet by mouth once daily Clopidogrel Bisulfate 75 MG Oral Tablet TAKE 1 TABLET BY MOUTH EVERY DAY Quantity: 90 Refills: 3 Ordered: 07-Jun-2023 Gigi Bui KARMENCaterina Start : 04-Oct-2022 Active 24 hr isosorbide [...] infection, unspecified Episodic Cancer of bronchus; lung (15 sources) Non-small cell lung cancer; Translations: [Malignant [...] [Coronary atherosclerosis of unspecified type of vessel, [place] or graft] Onset: 03-05-2017 Resolved: 11-15-2021 Chronic Disorders of lipid metabolism (20 sources) Hyperlipidemia; Translations: [Other and unspecified hyperlipidemia] Onset: 07-18-2017 07-18-2017 Chronic Essential hypertension (2 sources) Hypertensive disorder; Translations: [Essential (primary) hypertension] Onset: 10-24-2023 10-18-2023 Chronic Genitourinary symptoms and ill-defined conditions (9 sources) Retention of urine; Translations: [Retention of urine, unspecified] Onset: 11-28-2023 11-30-2023 Episodic Hyperplasia of prostate (13 sources) Benign prostatic hyperplasia; Translations: [Benign prostatic hyperplasia with lower urinary tract symptoms] Onset: 12-21-2020 09-13-2023 Chronic Nonspecific chest pain (11 sources) Chest pain; Translations: [Chest pain, unspecified] Onset: 07-26-2022 07-26-2022 Episodic Other aftercare (1 source) buttermaker (current) use of aspirin; Translations: [HALFWAY CURRENT USE OF ASPIRIN] Onset: 07-28-2022 Episodic Other aftercare (1 source) Other intermodal dispatcher (current) drug therapy; Translations: [OTH HALFWAY CURRENT DRUG THERAPY] Onset: 07-28-2022 Episodic Other diseases of bladder and urethra (4 sources) Bladder outlet obstruction; Translations: [Bladder-neck obstruction] Onset: 12-26-2023 12-26-2023 Chronic Other lower respiratory disease (6 sources) Solitary nodule of lung; Translations: [Solitary pulmonary nodule] Episodic Other lower respiratory disease (1 source) Shortness of breath; Translations: [SHORTNESS OF BREATH] Onset: 07-28-2022 Episodic Other nutritional; endocrine; and metabolic disorders (11 sources) Body mass index 30+ - obesity; [...] side] Onset: 08-02-2023 Unclassified (1 source) Bladder Problem Onset: 12-04-2023 Unclassified (1 source) Low back pain, unspecified; Translations: [Low back pain, unspecified] Onset: 04-15-2024 Unclassified (1 source) Bladder stones [N21.0] Onset: 11-05-2023 Urinary tract infections (1 source) Urinary tract infection, site not specified; Translations: [Urinary tract infection, site not specified] Onset: 03-18-2024 Episodic Past or Other Problems Problem Classification Problem Date Documented Da te Episodic/Chronic Calculus of urinary tract (20 sources) Calculus in bladder; Translations: [Kidney stone] Onset: 05-31-2022 09-06-2023 Episodic Coronary atherosclerosis and other heart disease (7 sources) Presence of aortocoronary bypass graft; Translations: [Personal history of surgery to heart and great vessels, presenting hazards to health] Onset: 07-28-2022 07-28-2022 Episodic Mood disorders (10 sources) Mood disorders Onset: 07-18-2017 07-18-2017 Mycoses (1 source) Unspecified mycosis Onset: 03-08-2022 Resolved: 03-08-2022 Episodic Other lower respiratory disease (20 sources) Lung mass; Translations: [Swelling, mass, or lump in chest] Onset: 04-09-2017 10-25-2021 Episodic Other lower respiratory disease (16 sources) Dyspnea on exertion; Translations: [Dyspnea, unspecified] Onset: 05-09-2017 05-09-2017 Episodic Other lower respiratory disease (15 sources) Other nonspecific abnormal finding of lung field; Translations: [Swelling, mass, or lump in chest] Onset: 10-25-2021 Resolved: 03-08-2022 Episodic Other lower respiratory disease (1 source) Dyspnea, unspecified Onset: 11-15-2021 Resolved: 11-15-2021 Episodic Other lower respiratory disease (10 sources) Cough; Translations: [Cough] Onset: 09-24-2017 09-24-2017 Episodic Other screening for suspected conditions (not mental disorders or infectious disease) (10 sources) Raised prostate specific antigen; Translations: [Elevated prostate specific antigen [PSA]] Onset: 09-05-2023 09-06-2023 Episodic Other upper respiratory infections (10 sources) Acute frontal sinusitis; Translations: [Acute frontal sinusitis, unspecified] Onset: 09-24-2017 09-24-2017 Episodic Pneumonia (except that caused by tuberculosis or sexually transmitted disease) (1 source) Pulmonary mycobacterial infection Onset: 03-08-2022 Resolved: 03-08-2022 Episodic Residual codes; unclassified (10 sources) H/O: asbestos exposure; Translations: [Contact with and (suspected) exposure to asbestos] Onset: 04-09-2017 04-09-2017 Episodic Screening and history of mental health and substance abuse codes (20 sources) Ex-smoker; Translations: [Personal history of tobacco use] Onset: 03-05-2017 Resolved: 12-22-2019 07-17-2022 Episodic Comment on above: QUIT 15 YEARS AGO 20 06- SMOKED ABOUT 2 PPD; Results Test Name Value Interpretation Reference Range Facility XR SPINE LUMBAR 2 OR 3 VWSon 04-16-2024 XR SPINE LUMBAR 2 OR 3 VWS XR SPINE LUMBAR 2 OR 3 VWS CLINICAL INFORMATION: Low back pain potentially associated with radiculopathy TECHNIQUE: Lumbo-sacral spine radiographs performed. Three images acquired. COMPARISON: No relevant prior studies available. FINDINGS: Rightward curvature of the lumbar spine. Vertebral body heights are maintained. Multilevel degenerative disc disease and endplate spurring. Diffuse lumbar facet arthropathy. SI joints are symmetric. Sclerotic focus overlying the left ilium may relate to a bone island but is incompletely evaluated. The visualized abdomen is unremarkable. IMPRESSION: * Rightward curvature of the lumbar spine with multilevel degenerative disc disease and facet arthropathy. Finalized by Eduardo Ramirez MD on 04/16/2024 10:31 PM Normal [facility] CBC AND AUTO DIFFon 04-15-20 24 ABSOLUTE BASOPHIL 0.0 X10E9/L Normal 0.0-0.2 [facility] Comment on above: Performed By: #### Bassem CANTU CMP, 23394-4 #### [facility] ([id number]) [address], [address] [place] [address] ABSOLUTE NEUTROPHIL 2.7 X10E9/L Normal 1.5-6.6 [facility] Comment on above: Performed By: #### Bassem CANTU CMP, 47738-7 #### [facility] ([id number]) [address], [address] [place] [address] Basophils/100 WBC (Bld) 0.4 % Normal [facility] Comment on above: Performed By: #### Bassem CANUT CMP, 58541-3 #### [facility] ([id number]) [address], [address] [place] [address] Eosinophils (Bld) [#/Vol] 0.4 10*3/uL Normal 0.0-0.4 [facility] Comment on above: Performed By: #### Bassem CANTU CMP, 76596-0 #### [facility] ([id number]) [address], [address] [place] [address] Eosinophils/100 WBC (Bld) 7.5 % Normal [facility] Comment on above: Performed By: #### Bassem CANTU CMP, 26551-2 #### [facility] ([id number]) [address], [address] [place] [address] Erythrocyte distribution width (RBC) [Ratio] 13.7 % Normal 11.5-15.0 [facility] Comment on above: Performed By: #### Bassem CANTU CMP, 67312-9 #### [facility] ([id number]) [address], [address] [place] [address] Hematocrit (Bld) [Volume fraction] 40.7 % Normal 39-49 [facility] Comment on above: Performed By: #### Bassem CANTU CMP, 62504-3 #### [facility] ([id number]) [address], [facility] [address] [place] [address] Hemoglobin (Bld) [Mass/Vol] 14.3 g/dL Normal 13.0-17.0 [facility] Comment on above: Performed By: #### Bassem CANTU CMP, 22348-2 #### [facility] ([id number]) [address] [place] [address] Lymphocytes (Bld) [#/Vol] 1.4 10*3/uL Normal 1.0-3.5 [facility] Comment on above: Performed By: #### Bassem CANTU CMP, 32076-8 #### [facility] ([id number]) [address] [place] [address] Lymphocytes/100 WBC (Bld) 28.5 % Normal [facility] Comment on above: Performed By: #### Bassem CANTU, CMP, 05013-8 #### [facility] ([id number]) [address] [place] [address] MCH (RBC) [Entitic mass] 30.7 pg Normal 27-34 [facility] Comment on above: Performed By: #### Bassem CANTU, CMP, 43656-6 #### [facility] ([id number]) [address] [place] [address] MCHC (RBC) [Mass/Vol] 35.1 g/dL Normal 32-36 [facility] Comment on above: Performed By: #### Bassem CANTU CMP, 06014-5 #### [facility] ([id number]) [address], [address] [place] [address] MCV (RBC) [Entitic vol] 87 fL Normal 80-100 [facility] Comment on above: Performed By: #### Bassem CANTU CMP, 26695-6 #### [facility] ([id number]) [address], [address] [place] [address] Monocytes (Bld) [#/Vol] 0.5 10*3/uL Normal 0-0.9 [facility] Comment on above: Performed By: #### Bassem CANTU CMP, 47199-8 #### [facility] ([id number]) [address], [address] [place] [address] Monocytes/100 WBC (Bld) 9.7 % Normal [facility] Comment on above: Performed By: #### Bassem CANTU CMP, 64764-0 #### [facility] ([id number]) [address], [address] [place] [address] Neutrophils/100 WBC (Bld) 53.9 % Normal [facility] Comment on above: Performed By: #### Bassem CANTU CMP, 43020-9 #### [facility] ([id number]) [address], [address] [place] [address] Platelet mean volume (Bld) [Entitic vol] 8.2 fL Normal 7-12 [facility] Comment on above: Performed By: #### Bassem CANTU CMP, 23309-7 #### [facility] ([id number]) [address], [address] [place] [address] Platelets (Bld) [#/Vol] 223 10*3/uL Normal 150-450 [facility] Comment on above: Performed By: #### Bassem CANTU CMP, 77331-7 #### [facility] ([id number]) [address], [address] [place] [address] RBC COUNT 4.66 X10E12/L Normal 4.10-5.70 [facility] Comment on above: Performed By: #### C BCA, CMP, 15886-4 #### [facility] ([id number]) [address], [address] [place] [address] WBC (Bld) [#/Vol] 5.1 10*3/uL Normal 4.0-11.0 [facility] Comment on above: Performed By: #### C BCA, CMP, 75981-9 #### [facility] ([id number]) [address], [address] [place] [address] COMPREHENSIVE METABOLIC PANE Solitario 04-15-2024 Albumin [Mass/Vol] 4.2 g/dL Normal 3.2-5.3 [facility] Comment on above: Performed By: #### 7 18-7, BMP #### [facility] ([id number]) [address], [address] [place] [address] ALP [Catalytic activity/Vol] 77 U/L Normal 39-130 [facility] Comment on above: Performed By: #### 7 18-7, BMP #### [facility] ([id number]) [address], [address] [place] [address] ALT [Catalytic activity/Vol] 22 U/L Normal 0-40 [facility] Comment on above: Performed By: #### 7 18-7, BMP #### [facility] ([id number]) [address], [address] [place] [address] Anion gap [Moles/Vol] 7 mmol/L Normal 5-15 [facility] Comment on above: Performed By: #### 7 18-7, BMP #### [facility] ([id number]) [address], [address] [place] [address] AST [Catalytic activity/Vol] 18 U/L Normal 0-41 [facility] Comment on above: Performed By: #### 7 18-7, BMP #### [facility] ([id number]) [address], [address] [place] [address] Bilirubin [Mass/Vol] 0.5 mg/dL Normal 0.3-1.2 [facility] Comment on above: Performed By: #### 7 18-7, BMP #### [facility] ([id number]) [address], [address] [place] [address] Calcium [Mass/Vol] 9.1 mg/dL Normal 8.5-10.5 [facility] Comment on above: Performed By: #### 7 -7, BMP #### [facility] ([id number]) [address], [address] [place] [address] Chloride [Moles/Vol] 106 mmol/L Normal 98-109 [facility] Comment on above: Performed By: #### 7 -7, BMP #### [facility] ([id number]) [address], [address] [place] [address] CO2 [Moles/Vol] 27 mmol/L Normal 22-32 [facility] Comment on above: Performed By: #### 7 18-7, BMP #### [facility] ([id number]) [address], [address] [place] [address] Creatinine [Mass/Vol] 0.87 mg/dL Normal 0.60-1.30 [facility] Comment on above: Result Comment: METH OD TRACEABLE TO IDMS STANDARD Performed By: #### 7 18-7, BMP #### [facility] ([id number]) [address], [address] [place] [address] eGFR (CKD-EPI) NON-RACE DEPENDENT >90 Normal >59 [facility] Comment on above: Result Comment: Reported eGFR is based on the CKD-EPI 2020 equation that does not use a race coefficient. Performed By: #### 7 18-7, BMP #### [facility] ([id number]) [address], [address] [place] [address] Glucose [Mass/Vol] 140 mg/dL High 65-99 [facility] Comment on above: Performed By: #### 7 18-7, BMP #### [facility] ([id number]) [address], [address] [place] [address] Potassium [Moles/Vol] 4.2 mmol/L Normal 3.5-5.0 [facility] Comment on above: Performed By: #### 7 18-7, BMP #### [facility] ([id number]) [address], [address] [place] [address] Protein [Mass/Vol] 6.7 g/dL Normal 6.0-8.0 [facility] Comment on above: Performed By: #### 7 -7, BMP #### [facility] ([id number]) [address], [address] [place] [address] Sodium [Moles/Vol] 140 mmol/L Normal 134-146 [facility] Comment on above: Performed By: #### 7 18-7, BMP #### [facility] ([id number]) [address], [address] [place] [address] Urea nitrogen [Mass/Vol] 13 mg/dL Normal 5-27 [facility] Comment on above: Performed By: #### 7 18-7, BMP #### [facility] ([id number]) [address], [address] [place] [address] Lipid 1996 panelon 4 Cholesterol [Mass/Vol] 125 mg/dL Low 150-200 [facility] Comment on above: Performed By: #### 7 18-7, BMP #### [facility] ([id number]) [address], [address] [place] [address] Cholesterol in HDL [Mass/Vol] 36 mg/dL Low >39 [facility] Comment on above: Result Comment: HDL <40 mg/dL - High Risk HDL > or = 40mg/dL- Desirable HDL >60 mg/dL - Negative Risk Performed By: #### 7 18-7, BMP #### [facility] ([id number]) [address], [address] [place] [address] Cholesterol in LDL [Mass/Vol] 53 mg/dL Normal <130 [facility] Comment on above: Result Comment: LDL <100 mg/dL - Desirable LDL >160 mg/dL - High Risk Performed By: #### 7 18-7, BMP #### [facility] ([id number]) [address], [address] [place] [address] Cholesterol in VLDL [Mass/Vol] 36 mg/dL High 0-30 [facility] Comment on above: Performed By: #### 7 18-7, BMP #### [facility] ([id number]) [address], [address] [place] [address] CHOLESTEROL:HDL 3.5 Normal 1.0-5.0 [facility] Comment on above: Performed By: #### 7 18-7, BMP #### [facility] ([id number]) [address], [address] [place] [address] Triglyceride [Mass/Vol] 182 mg/dL High 27-150 [facility] Comment on above: Performed By: #### 7 18-7, BMP #### [facility] ([id number]) [address], [address] [place] [address] URINE CULTUREon 03-11-2024 Bacteria identified Cx Nom (U) CULTURE RESULTS >100,000 ORGANISMS/mL ENTEROCOCCUS SPECIES Ampicillin or Amoxicillin is the drug of choice for uncomplicated cystitis caused by enterococci. Cephalosporins are inappropriate. >100,000 ORGANISMS/ML NORMAL UROGENITAL ROBERTO [ S = SUSCEPTIBLE R = RESISTANT I = INTERMEDIATE S-DO = Susceptible-dose dependent NS = Non-suscceptible NO = No Interpretation ] Organism: ENTEROCOCCUS SPECIES Antibiotic Interpretation SHERYL Status AMPICILLIN S <=2 F LEVOFLOXACIN S 2 F NITROFURANTOIN S <=16 F VANCOMYCIN S 1 F Susceptible [facility] Comment on above: Performed By: #### 6 30-4 #### [facility] ([id number]) [address], [address] [place] [id number] CT CHEST W CONTon 01-02-[address] CT CHEST W CONT CT CHEST W CONT CT CHEST WITH CONTRAST CLINICAL HISTORY: 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 Surveillance for metastatic disease. COMPARISON: CT chest 06/14/2023 PROCEDURE: CT chest with 70 mL Omnipaque 300 intravenous contrast. Multidetector axial CT chest performed. Sagittal and coronal 2-D reconstructed images were also obtained. Automated dose reduction techniques utilized. All CT scans at this facility use dose modulation, iterative reconstruction, and/or weight based dosing when appropriate to reduce radiation dose to as low as reasonably achievable. FINDINGS: Lower neck: No acute CT findings in the soft tissues of the lower neck. Lymph nodes: No enlarged lymph nodes by size criteria. Osseous structures/Chest wall: Unremarkable. Central airways: The trachea is midline. There is no mass effect or stenosis. Upper Abdomen: Unremarkable. Heart: Heavy multivessel coronary artery calcification status post CABG. Heart is nonenlarged. No pericardial effusion. Pulmonary artery: Pulmonary arteries are not enlarged. No evidence of pulmonary embolism given suboptimal contrast bolus timing. Aorta: Thoracic aorta does not demonstrate any aneurysmal dilatation. Normal branching of the arch. Mild atherosclerotic disease. Lungs: Similar postoperative changes following right lower lobectomy. Paraseptal emphysematous changes. Tracer right pleural effusion. IMPRESSION: * No definite evidence of thoracic metastatic disease. * Stable post treatment changes without acute abnormality. * Improved, now trace right pleural effusion. Approved by Resident Davis Alfaro DO on 01/02/2024 8:32 AM I, Reji Vaughan MD have personally reviewed the image(s) and agree with and/or edited the report Finalized by Reji Vaughan MD on 01/02/2024 9:52 AM Normal [facility] Measure post void residualon 11-28-2023 Volume 576mL [facility] POCT Urinalysis Auto, W/O Mi croscopyon 11-28-2023 External Poct Urine Blood Large [facility] External Poct Urine Glucose Negative [facility] External Poct Urine Ketones Trace [facility] External Poct Urine Leukocyte Esterase Trace [facility] External Poct Urine Nitrite Negative [facility] External Poct Urine Ph 6.0 [facility] External Poct Urine Protein 2+ [facility] URINE CULTUREon 11-28-2023 Bacteria identified Cx Nom (U) SPECIMEN NOTES URINE RECEIVED WITHOUT PRESERVATIVE CULTURE RESULTS <10,000 ORGANISMS/ML NORMAL URO GENITAL ROBERTO URINE RECEIVED WITHOUT PRESERVATIVE-DELAYS IN TRANSPORT MAY AFFECT RESULTS.INTERPRET WITH CAUTION AND CLINICAL CORRELATION IS RECOMMENDED. Normal [facility] Comment on above: Performed By: #### 6 30-4 #### [facility] ([id number]) [address] [facility], FIRST FLOOR [place], [place] [id number] [place] [address] LAB ([id number]) [address] [place] [address], [address] [place] [address] KIDNEY STONE ANALYSISon RESULT COMMENT See Note Normal [facility] Comment on above: Result Comment: NOTE For stones containing calcium oxalate, calcium phosphate, and/or uric acid, a 24 hr urinary supersaturation test may help detect underlying risk factors for this type of stone formation and provide guidance for a stone prevention strategy. ADDITIONAL INFORMATION This test was developed and its performance characteristics determined by [facility] in a manner consistent with CLIA requirements. This test has not been cleared or approved by the U.S. Food and Drug Administration. Test Performed by: [facility] - [address] [address] Brand Marketing Intern: Walt Shafer M.D. Ph.D.; IA# [id number] SOURCE: Bladder Normal [facility] Comment on above: Result Comment: Indy ected on 11/08 AT 1412: Previously reported as BLADDER Stone Interpretation See Note Normal [facility] Comment on above: Result Comment: NOTE 50% Calcium oxalate monohydrate. 30% Calcium phosphate (apatite). 20% Calcium oxalate dihydrate. BASIC METABOLIC PANLon 10-24 Anion gap [Moles/Vol] 6 mmol/L Normal 5-15 [facility] Comment on above: Performed By: #### 7 18-7, BMP #### [facility] ([id number]) [address], [address] [place] [address] Calcium [Mass/Vol] 9.0 mg/dL Normal 8.5-10.5 [facility] Comment on above: Performed By: #### 7 18-7, BMP #### [facility] ([id number]) [address], [address] [place] [address] Chloride [Moles/Vol] 103 mmol/L Normal 98-109 [facility] Comment on above: Performed By: #### 7 18-7, BMP #### [facility] ([id number]) [address], [address] [place] [address] CO2 [Moles/Vol] 29 mmol/L Normal 22-32 [facility] Comment on above: Performed By: #### 7 18-7, BMP #### [facility] ([id number]) [address], [address] [place] [address] Creatinine [Mass/Vol] 0.91 mg/dL Normal 0.60-1.30 [facility] Comment on above: Result Comment: METH OD TRACEABLE TO IDMS STANDARD Performed By: #### 7 18-7, BMP #### [facility] ([id number]) [address], [address] [place] [address] eGFR (CKD-EPI) NON-RACE DEPENDENT >90 Normal >59 [facility] Comment on above: Result Comment: Reported eGFR is based on the CKD-EPI 2020 equation that does not use a race coefficient. Performed By: #### 7 18-7, BMP #### [facility] ([id number]) [address], [address] [place] [address] Glucose [Mass/Vol] 169 mg/dL High 65-99 [facility] Comment on above: Performed By: #### 7 -7, BMP #### [facility] ([id number]) [address], [address] [place] [address] Potassium [Moles/Vol] 4.3 mmol/L Normal 3.5-5.0 [facility] Comment on above: Performed By: #### 7 18-7, BMP #### [facility] ([id number]) [address], [address] [place] [address] Sodium [Moles/Vol] 138 mmol/L Normal 134-146 [facility] Comment on above: Performed By: #### 7 18-7, BMP #### [facility] ([id number]) [address], [address] [place] [address] Urea nitrogen [Mass/Vol] 14 mg/dL Normal 5-27 [facility] Comment on above: Performed By: #### 7 18-7, BMP #### [facility] ([id number]) [address], [address] [place] [address] Basic Metabolic Panelon 12-2 Anion gap [Moles/Vol] 6 mmol/L 5 - 15 mmol/L [facility] Calcium [Mass/Vol] 9.0 mg/dL 8.5 - 10. 5 mg/dL [facility] Chloride [Moles/Vol] 103 mmol/L 98 - 10 9 mmol/L [facility] CO2 [Moles/Vol] 29 mmol/L 22 - 32 mmol/L [facility] Creatinine [Mass/Vol] 0.91 mg/dL 0.60 - 1.30 mg/dL [facility] Comment on above: METHOD TRACEABLE TO [facility] STANDARD eGFR (CKD-EPI)non-race dependent - PINF [facility] Comment on above: Reported eGFR is based on the CKD-EPI 2020 equation that does not use a race coefficient. Glucose [Mass/Vol] 169 mg/dL High 65 - 99 mg/dL [facility] Interpretation and review of laboratory results Abnormal [facility] Potassium [Moles/Vol] 4.3 mmol/L 3.5 - 5.0 mmol/L [facility] Sodium [Moles/Vol] 138 mmol/L 134 - 146 mmol/L [facility] Urea nitrogen [Mass/Vol] 14 mg/dL 5 - 27 mg/dL [facility] ECG 12 leadon 10-24-2023 TRACEMASTERVUE [facility] HEMOGLOBINon 10-24-2023 Hemoglobin (Bld) [Mass/Vol] 14.1 g/dL Normal 13.0-17.0 [facility] Comment on above: Performed By: #### 7 18-7, BMP #### [facility] ([id number]) [address] [place] [address] [address] [place] [address] Hemoglobinon 10-24-2023 Hemoglobin (Bld) [Mass/Vol] 14.1 g/dL 13.0 - 17.0 g/dL [facility] Hemoglobin (Bld) [Mass/Vol]o n 10-24-2023 [facility] URINALYSISon 10-24-2023 Bilirubin Ql (U) Negative Normal NEG [facility] BLOOD/HGB Trace Abnormal NEG [facility] CA OXALATE CRYSTALS PRESENT Abnormal NONE [facility] Color (U) YELLOW Normal YELLOW [facility] Glucose Ql (U) Negative Normal NEG [facility] Ketones Ql (U) Negative Normal NEG [facility] Leukocyte esterase Test strip Ql (U) Negative Normal NEG [facility] Nitrite Ql (U) Negative Normal NEG [facility] pH (U) 6.0 [pH] Normal 5.0-8.5 [facility] Protein Ql (U) Negative Normal NEG [facility] R.B.CELLS 21 /hpf High 0-5 [facility] Specific gravity (U) [Rel density] 1.021 Normal 1.003-1.03 5 [facility] TURBIDITY CLEAR Normal CLEAR [facility] Urobilinogen (U) [Mass/Vol] mg/dL Normal <1.1 [facility] W.B.CELLS 3 /hpf Normal 0-5 [facility] URINE CULTUREon 10-24-2023 Bacteria identified Cx [...] <=1 F TRIMETH/SULFAMETHOXAZOLE S <=1/19 F Susceptible [facility] Comment on above: Performed By: #### 6 30-4 #### [facility] ([id number]) [address] [place] [address] XR CHEST 2 VWSon 10-24-2023 XR CHEST [...] Singleton MD on 10/24/2023 11:15 AM Normal [facility] XR Chest PA and Lateralon PA and lateral chest : HISTORY: Preoperative exam. Anesthesia clearance. 2 views the chest are obtained. There is a small right pleural effusion. Lungs otherwise clear. No consolidation. The cardiac contour is stable in comparison with 01/10/2023. No pneumothorax. IMPRESSION: Small right pleural effusion. Finalized by Chacorta Singleton MD on 10/24/2023 11:15 AM [facility] 10[facility]24/2023 PA and lateral chest: HISTORY: Preoperative exam. Anesthesia clearance. 2 views the chest are obtained. There is a small right pleural effusion. Lungs otherwise clear. No consolidation. The cardiac contour is stable in comparison with 01/10/2023. No pneumothorax. IMPRESSION: Small right pleural effusion. Finalized by Chacorta Singleton MD on 10/24/2023 11:15 AM [facility] Study observation (narrative) [facility] XR Chest PA and LateralOrder ed By: Chacorta Singleton on 10-24-2023 [facility] Work Phone: XR pre/post mri xrayon 08-02 XR pre/post mri [place] [address] MRI Report Signed Patient: Zaid Mello MR#: [id number] : 1960 Acct:[id number] Age/Sex: 62 / M ADM Date: 08/02/23 Loc: Room: Type: [facility] Attending Dr: Shaikh Lexi RODRIGUEZ Copies to: Shaikh Lexi MD Ordering Provider: Shaikh Lexi MD Date of Service: 08/02/23 MR/MR lumbar spine wo con: M54.41 ([id number]) XR/XR pre/post mri xray: M54.41 MRI Lumbar [...] Amado Raza M.D.08/02/2023 3:21 PM Dictation Location: [place] [address] Transcribed By: [facility] 08/02/23 1521 Dictated By: Amado Raza DO 08/02/23 1514 Signed By: 08/02/23 1521 [facility] Office Visit (Cardiology)on 10-04-2022 Follow-up visit Diagnoses/Problems [...] Weight Tips; Status:Complete - Retrospective Authorization; Done: [id number] Some eating tips that can help you lose weight.; Status:Complete - Retrospective Authorization; Done: [id number] Hyperlipidemia Renew: Atorvastatin Calcium 80 MG Oral Tablet; TAKE 1 TABLET AT BEDTIME S/P CABG (coronary artery bypass graft), Status post insertion of drug eluting coronary artery stent Start: Clopidogrel Bisulfate 75 MG Oral Tablet (Plavix); TAKE 1 TABLET DAILY SocHx: Former smoker Tobacco Use Screening; Status:Complete; Done: [id number] Patient Instructions Please bring all medicines, vitamins, and herbal supplements with you when you come to the office. Prescriptions will not be filled unless you are compliant with your follow up appointments or have a follow up appointment scheduled as per instruction of your physician. Refills should be requested at the time of your visit. Dr. Walt Barragan, [address], [place] [address] to do surgery to remove [...] Patient had remote CABG, recent non-ST elevation PR due to closure of negative right coronary however this was inconsequential because his [place] right coronary is already bypassed therefore he [...] negative for complaint. Vitals Vital Signs Recorded: [id number] 09:52AM Heart Ra (more content not included)... Normal [facility] Tobacco Screening.on 022 Adult depression screening assessment No [facility] 250 DO Work Phone: Tobacco use status [facility] b) No [facility] 250 DO Work Phone: Activated partial thrombopla stin time (aPTT) in platelet poor plasma by coagulation aOrdered By: Jermaine Jackson on 07-28-2022 aPTT Coag (PPP) [Time] 34.9 s 25.1-36.[address] [facility] Basophils Auto (Bld) [#/Vol] Ordered By: Jermaine Jackson on 07-28-2022 Basophils (Bld) [#/Vol] 0.0 10*3/uL 0.0-0.[address] [facility] Basophils/100 WBC Auto (Bld) Ordered By: Jermaine Jackson on 07-28-2022 Basophils/100 WBC (Bld) 0.5 % . [facility] Blood hemoglobin measurement (mass/volume)Ordered By: Jermaine Jackson on 07-28-2022 Hemoglobin (Bld) [Mass/Vol] 13.9 g/dL 13.0-17.[address] [facility] Blood leukocytes automated c ount (number/volume)Ordered By: Jermaine Jackson on 07-28-2022 WBC (Bld) [#/Vol] 5.6 10*3/uL 4.5-11.0 [facility] Creatinine and Glomerular fi ltration rate.predicted panel (S/P/Bld)Ordered By: Jaswinder Flores on 07-28-2022 Creatinine [Mass/Vol] 1.00 mg/dL 0.64-1.27 [facility] Eosinophils Auto (Bld) [#/Vo l]Ordered By: Jermaine Jackson on 07-28-2022 Eosinophils (Bld) [#/Vol] 0.3 10*3/uL 0.0-0.[address] [facility] Eosinophils/100 WBC Auto (Bl d)Ordered By: Jermaine Jackson on 07-28-2022 Eosinophils/100 WBC (Bld) 5.3 % . [facility] Erythrocyte distribution wid th Auto (RBC) [Ratio]Ordered By: Jermaine Jackson on 07-28-2022 Erythrocyte distribution width (RBC) [Ratio] 13.0 % 12.0-14.[address] [facility] Estimated glomerular filtrat ion rate (GFR) non- AmericanOrdered By: Ralphdafrida Vegaomar on 07-28-2022 GFR/1.73 sq M.predicted among non-blacks MDRD (S/P/Bld) [Vol rate/Area] > 60 mL/Min [facility] Glucose Glucometer (BldC) [M ass/Vol]Ordered By: Jaswinder Vegaomajay on 07-28-2022 Glucose [Mass/Vol] 145 mg/dL [facility] Comment on above: Random Glucose Refer ence Range is dependent on time and content of last meal. Glucose of more than 200 mg/dL in a nonstressed, ambulatory subject supports the diagnosis of Diabetes Mellitus. Hematocrit Auto (Bld) [Volum e fraction]Ordered By: Jermaine Jackson on 07-28-2022 Hematocrit (Bld) [Volume fraction] 40.5 % 38.8-50.[address] [facility] Laboratory - CoagulationOrde red By: Jermaine Jackson on 07-28-2022 PT Coag (PPP) [Time] 12.0 s 9.0-12.9 [facility] - Hematology and Cell countsOrdered By: Jermaine Jackson on 07-28-2022 Nucleated RBC/100 WBC (Bld) [Ratio] 0.2 % 0-0.[address] [facility] Lymphocytes Auto (Bld) [#/Vo l]Ordered By: Jermaine Jackson on 07-28-2022 Lymphocytes (Bld) [#/Vol] 1.4 10*3/uL 1.00-4.[address] [facility] Lymphocytes/100 WBC Auto (Bl d)Ordered By: Jermaine Jackson on 07-28-2022 Lymphocytes/100 WBC (Bld) 24.6 % . [facility] MCH Auto (RBC) [Entitic mass ]Ordered By: Jermaine Jackson on 07-28-2022 MCH (RBC) [Entitic mass] 30.4 pg 27.5-35.[address] [facility] MCHC Auto (RBC) [Mass/Vol]Or dered By: Jermaine Jackson on 07-28-2022 MCHC (RBC) [Mass/Vol] 34.3 g/dL 32.5-35.6 [facility] MCV Auto (RBC) [Entitic vol] Ordered By: Jermaine Jackson on 07-28-2022 MCV (RBC) [Entitic vol] 88.8 fL 83.5-[address] [facility] Monocytes Auto (Bld) [#/Vol] Ordered By: Jermaine Jackson on 07-28-2022 Monocytes (Bld) [#/Vol] 0.6 10*3/uL 0.0-0.[address] [facility] Monocytes/100 WBC Auto (Bld) Ordered By: Jermaine Jackson on 07-28-2022 Monocytes/100 WBC (Bld) 11.1 % . [facility] Neutrophils Auto (Bld) [#/Vo l]Ordered By: Jermaine Jackson on 07-28-2022 Neutrophils (Bld) [#/Vol] 3.3 10*3/uL 1.8-7.[address] [facility] Neutrophils/100 WBC Auto (Bl d)Ordered By: Jermaine Jackson on 07-28-2022 Neutrophils/100 WBC (Bld) 58.5 % . [facility] No Panel InformationOrdered By: Jaswinder Flores on 07-28-2022 Estimated GFR () > 60 mL/Min [facility] Comment on above: GFR estimated refere nce range: According to KDOQI guidelines, <60 ml/min/1.73m2 is sufficient to diagnose a patient with chronic kidney disease. Pharmacy Creatinine Clearance (Chem 90.[address] [facility] Platelet mean volume Auto (B ld) [Entitic vol]Ordered By: Jermaine Jackson on 07-28-2022 Platelet mean volume (Bld) [Entitic vol] 7.9 fL 6.6-10.[address] [facility] Platelet poor plasma interna tional normalized ratio (INR) by coagulation assay (relatOrdered By: Jermaine Jackson on 07-28-2022 INR Coag (PPP) [Relative time] 1.1 {INR} [facility] Comment on above: INR Therapeutic Rang [...] 07-28-2022 Platelets (Bld) [#/Vol] 209 10*3/uL 150-[address] [facility] RBC Auto (Bld) [#/Vol]Ordere d By: Jermaine Jackson on 07-28-2022 RBC (Bld) [#/Vol] 4.56 10*6/uL 3.90-5.60 [facility] Serum or plasma anion gap de terminationOrdered By: Jermaine Jackson on 07-28-2022 Anion gap [Moles/Vol] 13.0 mmol/L 6.0-15.0 [facility] Serum or plasma chloride micki surement (moles/volume)Ordered By: Jermaine Jackson on 07-28-2022 Chloride [Moles/Vol] 102 mmol/L 95-114 [facility] Serum or plasma potassium me asurement (moles/volume)Ordered By: Jermaine Jackson on 07-28-2022 Potassium [Moles/Vol] 4.2 mmol/L 3.5-5.1 [facility] Serum or plasma sodium measu rement (moles/volume)Ordered By: Jermaine Jackson on 07-28-2022 Sodium [Moles/Vol] 136 mmol/L 136-146 [facility] Serum or plasma total carbon dioxide measurement (moles/volume)Ordered By: Jermaine Jackson on 07-28-2022 CO2 [Moles/Vol] 25.2 mmol/L 22.0-30.0 [facility] Serum or plasma urea nitroge n measurement (mass/volume)Ordered By: Jermaine Jackson on 07-28-2022 Urea nitrogen [Mass/Vol] 11 mg/dL 9-[address] [facility] Troponin I.cardiac [Mass/vol ume] in Serum or Plasma by High sensitivity methodOrdered By: Jaswinder Flores on 07-27-2022 Troponin I.cardiac High sensitivity method [Mass/Vol] 304 pg/mL 0-[address] [facility] Comment on above: Results calledat 100 2 on 07/27/22 Albumin [Mass/volume] in Ser um or PlasmaOrdered By: Jaswinder Vegaomar on 07-26-2022 Albumin [Mass/Vol] 3.7 g/dL 3.2-5.5 [facility] BNPon 07-26-2022 Natriuretic peptide B (Bld) [Mass/Vol] 62.0 pg/mL Normal <=900.0 [facility] Comment on above: Performed By: #### C MADM, BNP, CMP ####[facility] [address] [place] [address]Dr. Sg Mccollum CARDIAC KHANG ADMITon 022 CK [Catalytic activity/Vol] 111 U/L Normal 39-308 [facility] Comment on above: Performed By: #### C MADM, BNP, CMP #### [facility] [address] [place] [address] [address] Sg Mccollum CK.MB [Mass/Vol] 2.36 ng/mL Normal <=3.60 [facility] Comment on above: Performed By: #### C MADM, BNP, CMP #### [facility] [address] [place] [address] [address] Sg Mccollum HSTROP 42.8 pg/mL Normal 4.0-76.1 [facility] Comment on above: Result Comment: CUT- OFF POINTS HAVE BEEN ESTABLISHED BASED ON THE FOURTH UNIVERSAL DEFINITIONS OF MYOCARDIAL INFARCTION. THE UPPER REFERENCE LIMIT (URL) OF TROPONIN, DEFINED THE 99TH PERCENTILE OF cTnI DISTRIBUTION IN A REFERENCE POPULATION, HAS BEEN CONFIRMED THE DECISION THRESHOLD FOR PR DIAGNOSIS. Performed By: #### C MADM, BNP, CMP #### [facility] [address] [place] [address] [address] Sg Mccollum NAKIA 78 ng/mL Normal 16-96 [facility] Comment on above: Performed By: #### C MADM, BNP, CMP #### [facility] [address] [place] [address] [address] Sg Mccollum CBC AUTO DIFFon 07-26-2022 BASO # 0.0 103/ul Normal 0.0-0.1 [facility] Comment on above: Performed By: #### C BC #### [facility] [address] [place] [address] [address] Sg Mccollum Basophils/100 WBC (Bld) 0.2 % Normal 0.2-2.0 [facility] Comment on above: Performed By: #### C BC #### [facility] [address] [place] [address] [address] Sg Mccollum EO # 0.3 103/ul Normal 0.0-0.7 [facility] Comment on above: Performed By: #### C BC #### [facility] [address] [place] [address] Dr. Sg Mccollum Eosinophils/100 WBC (Bld) 5.4 % Normal 0.9-7.0 [facility] Comment on above: Performed By: #### C BC #### [facility] [address] [place] [address] Dr. Sg Mccollum Erythrocyte distribution width (RBC) [Ratio] 12.5 % Normal 11.0-15.0 [facility] Comment on above: Performed By: #### C BC #### [facility] [address] [place] [address] Dr. Sg Mccollum Hematocrit (Bld) [Volume fraction] 40.8 % Critically low 42.0-54.0 [facility] Comment on above: Performed By: #### C BC #### [facility] [address] [place] [address] Dr. Sg Mccollum Hemoglobin (Bld) [Mass/Vol] 13.8 g/dL Critically low 14.0-18.0 [facility] Comment on above: Performed By: #### C BC #### [facility] [address] [place] [address] Dr. Sg Mccollum IG # 0.01 10e3/ul Normal 0.00-0.03 [facility] Comment on above: Performed By: #### C BC #### [facility] [address] [place] [address] Dr. Sg Mccollum IG % 0.2 % Normal 0.0-0.5 [facility] Comment on above: Performed By: #### C BC #### [facility] [address] [place] [address] Dr. Sg Mccollum LYMPH # 1.1 103/ul Critically low 1.2-3.8 [facility] Comment on above: Performed By: #### C BC #### [facility] [address] [place] [address] Dr. Sg Mccollum Lymphocytes/100 WBC (Bld) 19.2 % Critically low 20.5-60.0 [facility] Comment on above: Performed By: #### C BC #### [facility] [address] [place] [address] Dr. Sg Mccollum MANUAL DIFF REQ NO Normal [facility] Comment on above: Performed By: #### C BC #### [facility] [address] [place] [address] Dr. Sg Mccollum MCH (RBC) [Entitic mass] 29.8 pg Normal 25.9-34.0 [facility] Comment on above: Performed By: #### C BC #### [facility] [address] [place] [address] Dr. Sg Mccollum MCHC (RBC) [Mass/Vol] 33.8 g/dL Normal 29.9-35.2 [facility] Comment on above: Performed By: #### C BC #### [facility] [address] [place] [address] Dr. Sg Mccollum MCV (RBC) [Entitic vol] 88.1 fL Normal 80.0-94.0 [facility] Comment on above: Performed By: #### C BC #### [facility] [address] [place] [address] Dr. Sg Mccollum MONO # 0.6 103/ul Normal 0.3-0.8 [facility] Comment on above: Performed By: #### C BC #### [facility] [address] [place] [address] Dr. Sg Mccollum Monocytes/100 WBC (Bld) 10.8 % Normal 1.7-12.0 [facility] Comment on above: Performed By: #### C BC #### [facility] [address] [address] [address] Sg Mccollum NEUT # 3.6 103/ul Normal 1.4-6.5 [facility] Comment on above: Performed By: #### C BC #### [facility] [address] [address] [address] Sg Mccollum Neutrophils/100 WBC (Bld) 64.2 % Normal 43.0-75.0 [facility] Comment on above: Performed By: #### C BC #### [facility] [address] [place] [address] Dr. Sg Mccollum Platelet mean volume (Bld) [Entitic vol] 9.4 fL Critically low 9.5-13.5 [facility] Comment on above: Performed By: #### C BC #### [facility] [address] [place] [address] Dr. Sg Mccollum PLT 225 103/ul Normal 150-450 [facility] Comment on above: Performed By: #### C BC #### [facility] [address] [place] [address] Dr. Sg Mccollum RBC 4.63 106/ul Critically low 4.70-6.10 [facility] Comment on above: Performed By: #### C BC #### [facility] [address] [place] [address] Dr. Sg Mccollum WBC 5.6 103/ul Normal 4.0-11.0 [facility] Comment on above: Performed By: #### C BC #### [facility] [address] [place] [address] Dr. Sg Mccollum Cholesterol [Mass/volume] in Serum or PlasmaOrdered By: Jaswinder Flores on 07-26-2022 Cholesterol [Mass/Vol] 103 mg/dL 140-[address] [facility] Comment on above: Chol less than 200 m g/dl low riskChol 201-239 mg/dl borderline riskChol 240 mg/dl and greater high risk Cholesterol in LDL Calc [Mas s/Vol]Ordered By: Jaswinder Flores on 07-26-2022 Cholesterol in LDL [Mass/Vol] 51 mg/dL 0-[address] [facility] Comment on above: LDL ATP III CLASSIFI CATIONLDL less than 100 mg/dL OptimalLDL 100-129 mg/dL Near or above optimalLDL 130-159 mg/dL Borderline highLDL 160-189 mg/dL HighLDL greater than 189 mg/dL Very high Cholesterol in VLDL Calc [Ma ss/Vol]Ordered By: Jaswinder Flores on 07-26-2022 Cholesterol in VLDL [Mass/Vol] 21 mg/dL [facility]30 SARS-CoV-2 (COVID-19) RNA DONTE+probe Ql (Unsp spec) Not detected Normal NOT DETECTED [facility] Comment on above: Result Comment: When diagnostic [...] for this test is supported by the [employer] of Health and Human Service's declaration that [...] longer be used). Performed By: #### C [facility] #### [facility] [address] [place] [address] Dr. Sg Mccollum Globulin Calc (S) [Mass/Vol] Ordered By: Jaswinder Flores on 07-26-2022 Globulin (S) [Mass/Vol] 2.8 g/dL [facility] Glucose mean value [Mass/vol ume] in Blood Estimated from glycated hemoglobinOrdered By: Jaswinder Flores on 07-26-2022 Average glucose Estimated from glycated hemoglobin (Bld) [Mass/Vol] 151 mg/dL [facility] Hemoglobin A1c percentageOrd ered By: Jaswinder Flores on 07-26-2022 HbA1c (Bld) [Mass fraction] 6.9 % 4.3-5.[address] [facility] Comment on above: Increased risk for d iabetes: 5.7 - 6.4diabetes: >6.4glycemic control for adults with diabetes: <7.0 Laboratory - Chemistry and C hemistry - challengeOrdered By: Jaswinder Flores on 07-26-2022 Magnesium [Mass/Vol] 2.0 mg/dL 1.6-2.6 [facility] PROF 14(COMP METB)on 022 Albumin [Mass/Vol] 3.9 g/dL Normal 3.4-5.0 [facility] Comment on above: Performed By: #### C MADM, BNP, CMP #### [facility] [address] [address] [address] Sg Mccollum Albumin/Globulin [Mass ratio] 1.2 {ratio} Normal [facility] Comment on above: Performed By: #### C MADM, BNP, CMP #### [facility] [address] [address] [address] Sg Mccollum ALP [Catalytic activity/Vol] 101 U/L Normal 46-116 [facility] Comment on above: Performed By: #### C MADM, BNP, CMP #### [facility] [address] [address] [address] Sg Mccollum ALT [Catalytic activity/Vol] 33 U/L Normal 16-63 [facility] Comment on above: Performed By: #### C MADM, BNP, CMP #### [facility] [address] [address] [address] Sg Mccollum Anion gap [Moles/Vol] 12.8 mmol/L Normal [facility] Comment on above: Performed By: #### C MADM, BNP, CMP #### [facility] [address] [place] [address] Dr. Sg Mccollum AST [Catalytic activity/Vol] 23 U/L Normal 15-37 [facility] Comment on above: Performed By: #### C MADM, BNP, CMP #### [facility] [address] [place] [address] Dr. Sg Mccollum Bilirubin [Mass/Vol] 0.4 mg/dL Normal 0.2-1.0 [facility] Comment on above: Performed By: #### C MADM, BNP, CMP #### [facility] [address] [place] [address] Dr. Sg Mccollum Calcium [Mass/Vol] 8.9 mg/dL Normal 8.5-10.1 [facility] Comment on above: Performed By: #### C MADM, BNP, CMP #### [facility] [address] [place] [address] Dr. Sg Mccollum Chloride [Moles/Vol] 103 mmol/L Normal 98-107 [facility] Comment on above: Performed By: #### C MADM, BNP, CMP #### [facility] [address] [place] [address] Dr. Sg Mccollum CO2 [Moles/Vol] 25.2 mmol/L Normal 21.0-32.0 [facility] Comment on above: Performed By: #### C MADM, BNP, CMP #### [facility] [address] [place] [address] Dr. Sg Mccollum Creatinine [Mass/Vol] 1.04 mg/dL Normal 0.70-1.30 [facility] Comment on above: Performed By: #### C MADM, BNP, CMP #### [facility] [address] [place] [address] Dr. Sg Mccollum EGFR-AF NICARAGUAN >60 Normal >=60 [facility] Comment on above: Performed By: #### C MADM, BNP, CMP #### [facility] [address] [place] [address] Dr. Sg Mccollum EGFR-NON AF NICARAGUAN >60 Normal >=60 [facility] Comment on above: Performed By: #### C MADM, BNP, CMP #### [facility] [address] [address] [address] Sg Mccollum Globulin (S) [Mass/Vol] 3.3 g/dL Normal [facility] Comment on above: Performed By: #### C MADM, BNP, CMP #### [facility] [address] [address] [address] Sg Mccollum Glucose [Mass/Vol] 146 mg/dL Critically high 74-106 [facility] Comment on above: Performed By: #### C MADM, BNP, CMP #### [facility] [address] [place] [address] Dr. Sg Mccollum Potassium [Moles/Vol] 4.0 mmol/L Normal 3.5-5.1 [facility] Comment on above: Performed By: #### C MADM, BNP, CMP #### [facility] [address] [place] [address] Dr. Sg Mccollum Protein [Mass/Vol] 7.2 g/dL Normal 6.4-8.2 [facility] Comment on above: Performed By: #### C MADM, BNP, CMP #### [facility] [address] [place] [address] Dr. Sg Mccollum Sodium [Moles/Vol] 137 mmol/L Normal 136-145 [facility] Comment on above: Performed By: #### C MADM, BNP, CMP #### [facility] [address] [place] [address] Dr. Sg Mccollum Urea nitrogen [Mass/Vol] 6.0 mg/dL Critically low 7.0-18.0 [facility] Comment on above: Performed By: #### C MADM, BNP, CMP #### [facility] [address] [place] [address] Dr. Sg Mccollum Urea nitrogen/Creatinine [Mass ratio] 5.8 mg/mg Normal [facility] Comment on above: Performed By: #### C MADM, BNP, CMP #### [facility] [address] [place] [address] Dr. Sg Mccollum PROTIMEon 07-26-2022 INR Coag (PPP) [Relative time] 0.97 {INR} Normal [facility] Comment on above: Performed By: #### P TT, PT #### [facility] [address] [place] [address] Dr. Sg Mccollum INR GUIDELINES SEE BELOW Normal [facility] Comment on above: Result Comment: OLE RED INR: 2.0 - 3.0 CONDITIONS NOT LISTED BELOW 2.5 - 3.5 FOR PROSTHETIC HEART VALVE REPLACEMENT 2.5 - 3.5 RECURRENT THROMBOSIS Performed By: #### P TT, PT #### [facility] [address] [address] [address] Sg Mccollum PT Coag (PPP) [Time] 10.5 s Normal 9.0-11.6 [facility] Comment on above: Performed By: #### P TT, PT #### [facility] [address] [place] [address] Dr. Sg Mccollum PTTon 07-26-2022 aPTT Coag (Bld) [Time] 26.1 s Normal 22.3-36.2 [facility] Comment on above: Performed By: #### P TT, PT #### [facility] [address] [place] [address] Dr. Sg Mccollum Phosphate [Mass/volume] in S sanjeev or PlasmaOrdered By: Jaswinder Flores on 07-26-2022 Phosphate [Mass/Vol] 3.7 mg/dL 2.5-4.6 [facility] Protein [Mass/volume] in Ser um or PlasmaOrdered By: Jaswinder Flores on 07-26-2022 Protein [Mass/Vol] 6.5 g/dL 6.1-7.9 [facility] Serum or plasma alanine soto otransferase measurement without P-5'-P (enzymatic activiOrdered By: Jaswinder Flores on 07-26-2022 ALT No additional P-5'-P [Catalytic activity/Vol] 26 U/L 10-[address] [facility] Serum or plasma albumin/glob ulin mass ratioOrdered By: Jaswinder Flores on 07-26-2022 Albumin/Globulin [Mass ratio] 1.3 {ratio} [facility] Serum or plasma alkaline toi sphatase measurement (enzymatic activity/volume)Ordered By: Jaswinder Flores on 07-26-2022 ALP [Catalytic activity/Vol] 84 U/L 32-[address] [facility] Serum or plasma aspartate am inotransferase measurement (enzymatic activity/volume)Ordered By: Jaswinder Flores on 07-26-2022 AST [Catalytic activity/Vol] 25 U/L 10-[address] [facility] Serum or plasma calcium taj urement (mass/volume)Ordered By: Jaswinder Flores on 07-26-2022 Calcium [Mass/Vol] 9.1 mg/dL 8.2-10.2 [facility] Serum or plasma glucose taj urement (mass/volume)Ordered By: Jaswinder Flores on 07-26-2022 Glucose [Mass/Vol] 93 mg/dL 70-100 [facility] Comment on above: ADA recommended refe rence rangeRandom Glucose Reference Range is dependent on time and content of last meal. Glucose of more than 200 mg/dL in a nonstressed, ambulatory subject supports the diagnosis of Diabetes Mellitus. Serum or plasma high density lipoprotein (HDL) cholesterol measurementOrdered By: Jaswinder Flores on 07-26-2022 Cholesterol in HDL [Mass/Vol] 30 mg/dL 29-[address] [facility] Comment on above: HDL CHOL ATP-III CLA SSIFICATION Cardiovascular RiskHDL > or equal to 60 mg/dL LOWHDL < 40 mg/dL HIGH Serum or plasma total biliru bin measurement (mass/volume)Ordered By: Jaswinder Flores on 07-26-2022 Bilirubin [Mass/Vol] 0.7 mg/dL 0.3-1.2 [facility] Serum or plasma total choles terol/high density lipoprotein (HDL) cholesterol mass ratOrdered By: Jaswinder Flores on 07-26-2022 Cholesterol.total/Cho lesterol in HDL [Mass ratio] 3.4 {ratio} <5.[address] [facility] TROPONIN, HIGH SENSITIVITYon 07-26-2022 HSTROP 546.5 pg/mL Critically high 4.0-76.1 [facility] Comment on above: Result Comment: CUT- OFF POINTS HAVE BEEN ESTABLISHED BASED ON THE FOURTH UNIVERSAL DEFINITIONS OF MYOCARDIAL INFARCTION. THE UPPER REFERENCE LIMIT (URL) OF TROPONIN, DEFINED THE 99TH PERCENTILE OF cTnI DISTRIBUTION IN A REFERENCE POPULATION, HAS BEEN CONFIRMED THE DECISION THRESHOLD FOR PR DIAGNOSIS. Performed By: #### H STROPN #### [facility] [address] [place], [place] [address] Dr. Sg Mccollum Triglyceride [Mass/volume] i n Serum or PlasmaOrdered By: Jaswinder Flores on 07-26-2022 Triglyceride [Mass/Vol] 109 mg/dL 35-[address] [facility] Comment on above: TRIG ATP III [...] SAUNDRA GOEL Date: 2022-07-26 12:14 Normal [facility] CBC AUTO DIFFon 05-30-2022 BASO # 0.0 103/ul Normal 0.0-0.1 [facility] Comment on above: Performed By: #### C BC #### [facility] [address] [place], [place] [address] Dr. Sg Mccollum Basophils/100 WBC (Bld) 0.4 % Normal 0.2-2.0 [facility] Comment on above: Performed By: #### C BC #### [facility] [address] [place] [address] Dr. Sg Mccollum EO # 0.2 103/ul Normal 0.0-0.7 [facility] Comment on above: Performed By: #### C BC #### [facility] [address] [place] [address] Dr. Sg Mccollum Eosinophils/100 WBC (Bld) 3.4 % Normal 0.9-7.0 [facility] Comment on above: Performed By: #### C BC #### [facility] [address] [place] [address] Dr. Sg Mccollum Erythrocyte distribution width (RBC) [Ratio] 12.7 % Normal 11.0-15.0 [facility] Comment on above: Performed By: #### C BC #### [facility] [address] [place] [address] Dr. Sg Mccollum Hematocrit (Bld) [Volume fraction] 40.8 % Critically low 42.0-54.0 [facility] Comment on above: Performed By: #### C BC #### [facility] [address] [place] [address] Dr. Sg Mccollum Hemoglobin (Bld) [Mass/Vol] 13.5 g/dL Critically low 14.0-18.0 [facility] Comment on above: Performed By: #### C BC #### [facility] [address] [place] [address] Dr. Sg Mccollum IG # 0.02 10e3/ul Normal 0.00-0.03 [facility] Comment on above: Performed By: #### C BC #### [facility] [address] [place] [address] Dr. Sg Mccollum IG % 0.4 % Normal 0.0-0.5 [facility] Comment on above: Performed By: #### C BC #### [facility] [address] [place] [address] Dr. Sg Mccollum LYMPH # 1.1 103/ul Critically low 1.2-3.8 [facility] Comment on above: Performed By: #### C BC #### [facility] [address] [place] [address] Dr. Sg Mccollum Lymphocytes/100 WBC (Bld) 22.0 % Normal 20.5-60.0 [facility] Comment on above: Performed By: #### C BC #### [facility] [address] [place] [address] Dr. Sg Mccollum MANUAL DIFF REQ NO Normal [facility] [place] [facility] Comment on above: Performed By: #### C BC #### [facility] [address] [place] [address] Dr. Sg Mccollum MCH (RBC) [Entitic mass] 30.0 pg Normal 25.9-34.0 [facility] Comment on above: Performed By: #### C BC #### [facility] [address] [place] [address] Dr. Sg Mccollum MCHC (RBC) [Mass/Vol] 33.1 g/dL Normal 29.9-35.2 [facility] Comment on above: Performed By: #### C BC #### [facility] [address] [place] [address] Dr. Sg Mccollum MCV (RBC) [Entitic vol] 90.7 fL Normal 80.0-94.0 [facility] Comment on above: Performed By: #### C BC #### [facility] [address] [place] [address] Dr. Sg Mccollum MONO # 0.5 103/ul Normal 0.3-0.8 [facility] Comment on above: Performed By: #### C BC #### [facility] [address] [place] [address] Dr. Sg Mccollum Monocytes/100 WBC (Bld) 9.6 % Normal 1.7-12.0 [facility] Comment on above: Performed By: #### C BC #### [facility] [address] [place] [address] Dr. Sg Mccollum NEUT # 3.2 103/ul Normal 1.4-6.5 [facility] Comment on above: Performed By: #### C BC #### [facility] [address] [place] [address] Dr. Sg Mccollum Neutrophils/100 WBC (Bld) 64.2 % Normal 43.0-75.0 [facility] Comment on above: Performed By: #### C BC #### [facility] [address] [place] [address] Dr. Sg Mccollum Platelet mean volume (Bld) [Entitic vol] 9.4 fL Critically low 9.5-13.5 [facility] Comment on above: Performed By: #### C BC #### [facility] [address] [place] [address] Dr. Sg Mccollum PLT 232 103/ul Normal 150-450 [facility] Comment on above: Performed By: #### C BC #### [facility] [address] [place] [address] Dr. Sg Mccollum RBC 4.50 106/ul Critically low 4.70-6.10 [facility] Comment on above: Performed By: #### C BC #### [facility] [address] [place] [address] Dr. Sg Mccollum WBC 5.0 103/ul Normal 4.0-11.0 [facility] Comment on above: Performed By: #### C BC #### [facility] [address] [place] [address] ABD/PELVIS WO CONon [...] SAUNDRA GOEL Date: 2022-05-30 13:02 Normal [facility] PROF 14(COMP METB)on 022 Albumin [Mass/Vol] 4.0 g/dL Normal 3.4-5.0 [facility] Comment on above: Performed By: #### C MP ####[facility] [address] [id number]. Sg Mccollum Albumin/Globulin [Mass ratio] 1.3 {ratio} Normal [facility] Comment on above: Performed By: #### C MP ####[facility] [address] [place], [place] [address]Ne. Sg Mccollum ALP [Catalytic activity/Vol] 76 U/L Normal 46-116 [facility] Comment on above: Performed By: #### C MP ####[facility] [address] [place], [place] [address]Ae. Sg Mccollum ALT [Catalytic activity/Vol] 26 U/L Normal 16-63 [facility] Comment on above: Performed By: #### C MP ####[facility] [address] [id number]. Sg Mccollum Anion gap [Moles/Vol] 10.3 mmol/L Normal [facility] Comment on above: Performed By: #### C MP ####[facility] [address] [id number]. Sg Mccollum AST [Catalytic activity/Vol] 18 U/L Normal 15-37 [facility] Comment on above: Performed By: #### C MP ####[facility] [address] [id number]. Sg Mccollum Bilirubin [Mass/Vol] 0.6 mg/dL Normal 0.2-1.0 [facility] Comment on above: Performed By: #### C MP ####[facility] [address] [id number]. Sg Mccollum Calcium [Mass/Vol] 9.0 mg/dL Normal 8.5-10.1 [facility] Comment on above: Performed By: #### C MP ####[facility] [address] [id number]. Sg Mccollum Chloride [Moles/Vol] 103 mmol/L Normal 98-107 [facility] Comment on above: Performed By: #### C MP ####[facility] [address] [id number]. Sg Mccollum CO2 [Moles/Vol] 30.1 mmol/L Normal 21.0-32.0 [facility] Comment on above: Performed By: #### C MP ####[facility] [address] [id number]. Sg Mccollum Creatinine [Mass/Vol] 1.11 mg/dL Normal 0.70-1.30 [facility] Comment on above: Performed By: #### C MP ####[facility] [address] [address]Dr. Sg Mccollum EGFR-AF NICARAGUAN >60 Normal >=60 [facility] Comment on above: Performed By: #### C MP ####[facility] [address] [address]Dr. Sg Cornelio EGFR-NON AF NICARAGUAN >60 Normal >=60 [facility] Comment on above: Performed By: #### C MP ####[facility] [address] [place], [place] [address]Dr. Sg Cornelio Globulin (S) [Mass/Vol] 3.2 g/dL Normal [facility] Comment on above: Performed By: #### C MP ####[facility] [address] [place], [place] [address]Dr. Delorismarina Cornelio Glucose [Mass/Vol] 164 mg/dL Critically high 74-106 [facility] Comment on above: Performed By: #### C MP ####[facility] [address] [place], [place] [address]Dr. Sg Mccollum Potassium [Moles/Vol] 5.4 mmol/L Critically high 3.5-5.1 [facility] Comment on above: Performed By: #### C MP ####[facility] [address] [place], [place] [address]Dr. Delorismarina Mccollum Protein [Mass/Vol] 7.2 g/dL Normal 6.4-8.2 [facility] Comment on above: Performed By: #### C MP ####[facility] [address] [place], [place] [address]Dr. Sg Mccollum Sodium [Moles/Vol] 138 mmol/L Normal 136-145 [facility] Comment on above: Performed By: #### C MP ####[facility] [address] [place], [place] [address]Dr. Sg Mccollum Urea nitrogen [Mass/Vol] 11.0 mg/dL Normal 7.0-18.0 [facility] Comment on above: Performed By: #### C MP ####[facility] [address] [place], [place] [address]Dr. Sg Mccollum Urea nitrogen/Creatinine [Mass ratio] 9.9 mg/mg Normal [facility] Comment on above: Performed By: #### C MP ####[facility] [address] [place], [place] [address]DrAlton Mccollum Activated partial thrombopla stin time (aPTT) in platelet poor plasma by coagulation aOrdered By: Jermaine Jackson on 05-11-2022 aPTT Coag (PPP) [Time] 30.0 s 25.1-36.[address] [facility] Basophils Auto (Bld) [#/Vol] Ordered By: eJrmaine Jackson on 05-11-2022 Basophils (Bld) [#/Vol] 0.0 10*3/uL 0.0-0.[address] [facility] Basophils/100 WBC Auto (Bld) Ordered By: Jermaine Jackson on 05-11-2022 Basophils/100 WBC (Bld) 0.6 % . [facility] Blood hemoglobin measurement (mass/volume)Ordered By: Jermaine Jackson on 05-11-2022 Hemoglobin (Bld) [Mass/Vol] 14.1 g/dL 13.0-17.[address] [facility] Blood leukocytes automated c ount (number/volume)Ordered By: Jermaine Jackson on 05-11-2022 WBC (Bld) [#/Vol] 5.7 10*3/uL 4.5-11.0 [facility] COVID-19 SOFIAOrdered By: Jermaine Jackson on 05-11-2022 SARS-CoV+SARS-CoV-2 (COVID-19) Ag IA.rapid Ql (Resp) Negative Negative [facility] Comment on above: This is a duplicate Aishwarya SARS Antigen (GENEVA) result to be used for statistical tracking purpose only. Cholesterol [Mass/volume] in Serum or PlasmaOrdered By: Jermaine Jackson on 05-11-2022 Cholesterol [Mass/Vol] 118 mg/dL 140-[address] [facility] Comment on above: Chol less than 200 m g/dl low risk Chol 201-239 mg/dl borderline risk Chol 240 mg/dl and greater high risk Chol less than 200 m g/dl low riskChol 201-239 mg/dl borderline riskChol 240 mg/dl and greater high risk Cholesterol in LDL Calc [Mas s/Vol]Ordered By: Jermaine Jackson on 05-11-2022 Cholesterol in LDL [Mass/Vol] 45 mg/dL 0-[address] [facility] Comment on above: LDL ATP III [...] 05-11-2022 Cholesterol in VLDL [Mass/Vol] 41 mg/dL [facility] Creatinine and Glomerular fi ltration rate.predicted panel (S/P/Bld)Ordered By: Jermaine Jackson on 05-11-2022 Creatinine [Mass/Vol] 0.96 mg/dL 0.64-1.27 [facility] Eosinophils Auto (Bld) [#/Vo l]Ordered By: Jermaine Jackson on 05-11-2022 Eosinophils (Bld) [#/Vol] 0.2 10*3/uL 0.0-0.[address] [facility] Eosinophils/100 WBC Auto (Bl d)Ordered By: Jermaine Jackson on 05-11-2022 Eosinophils/100 WBC (Bld) 4.2 % . [facility] Erythrocyte distribution wid th Auto (RBC) [Ratio]Ordered By: Jermaine Jackson on 05-11-2022 Erythrocyte distribution width (RBC) [Ratio] 13.2 % 12.0-14.[address] [facility] Estimated glomerular filtrat ion rate (GFR) non- AmericanOrdered By: Jermaine Jackson on 05-11-2022 GFR/1.73 sq M.predicted among non-blacks MDRD (S/P/Bld) [Vol rate/Area] > 60 mL/Min [facility] Hematocrit Auto (Bld) [Volum e fraction]Ordered By: Jermaine Jackson on 05-11-2022 Hematocrit (Bld) [Volume fraction] 41.3 % 38.8-50.[address] [facility] Laboratory - Chemistry and C hemistry - challengeon 05-11-2022 Cholesterol [Mass/Vol] 118\S\118 below low threshold 140-200 [facility] [place] 250 DO Work Phone: Comment on above: Chol less than 200 m g/dl low risk Chol 201-239 mg/dl borderline risk Chol 240 mg/dl and greater high risk Cholesterol in LDL [Mass/Vol] 45\S\45 Normal 0-100 [facility] 250 DO Work Phone: Comment on above: LDL ATP III CLASSIFI CATION LDL less than 100 mg/dL Optimal LDL 100-129 mg/dL Near or above optimal LDL 130-159 mg/dL Borderline high LDL 160-189 mg/dL High LDL greater than 189 mg/dL Very high Laboratory - CoagulationOrde red By: Jermaine Jackson on 05-11-2022 PT Coag (PPP) [Time] 11.2 s 9.0-12.9 [facility] Laboratory - Hematology and Cell countsOrdered By: Jermaine Jackson on 05-11-2022 Nucleated RBC/100 WBC (Bld) [Ratio] 0.1 % 0-0.[address] [facility] Laboratory - Microbiology an d Antimicrobial susceptibilityon 05-11-2022 SARS-CoV-2 (COVID-19) RNA DONTE+probe Ql (Unsp spec) [facility] 250 DO Work Phone: Lymphocytes Auto (Bld) [#/Vo l]Ordered By: Jermaine Jackson on 05-11-2022 Lymphocytes (Bld) [#/Vol] 1.4 10*3/uL 1.00-4.[address] [facility] Lymphocytes/100 WBC Auto (Bl d)Ordered By: Jermaine Jackson on 05-11-2022 Lymphocytes/100 WBC (Bld) 24.2 % . [facility] MCH Auto (RBC) [Entitic mass ]Ordered By: Jermaine Jackson on 05-11-2022 MCH (RBC) [Entitic mass] 30.5 pg 27.5-35.[address] [facility] MCHC Auto (RBC) [Mass/Vol]Or dered By: Jermaine Jackson on 05-11-2022 MCHC (RBC) [Mass/Vol] 34.1 g/dL 32.5-35.6 [facility] MCV Auto (RBC) [Entitic vol] Ordered By: Jermaine Jackson on 05-11-2022 MCV (RBC) [Entitic vol] 89.6 fL 83.5-[address] [facility] Monocytes Auto (Bld) [#/Vol] Ordered By: Jermaine Jackson on 05-11-2022 Monocytes (Bld) [#/Vol] 0.7 10*3/uL 0.0-0.[address] [facility] Monocytes/100 WBC Auto (Bld) Ordered By: Jermaine Jackson on 05-11-2022 Monocytes/100 WBC (Bld) 12.3 % . [facility] Neutrophils Auto (Bld) [#/Vo l]Ordered By: Jermaine Jackson on 05-11-2022 Neutrophils (Bld) [#/Vol] 3.3 10*3/uL 1.8-7.[address] [facility] Neutrophils/100 WBC Auto (Bl d)Ordered By: Jermaine Jackson on 05-11-2022 Neutrophils/100 WBC (Bld) 58.7 % . [facility] No Panel InformationOrdered By: Jermaine Jackson on 05-11-2022 Estimated GFR () > 60 mL/Min [facility] Comment on above: GFR estimated refere nce range: According to KDOQI guidelines, <60 ml/min/1.73m2 is sufficient to diagnose a patient with chronic kidney disease. Pharmacy Creatinine Clearance (Chem N/A [facility] SARS Antigen (LFIA) [facility] SARS Antigen (LFIA) [facility] No Panel Informationon 05-11 58.7\S\58.7 Normal . [facility] 250 DO Work Phone: 8.0\S\8.0 Normal 6.6-10.1 [facility] [place] 250 DO Work Phone: 240\S\240 Normal 150-450 [facility] 250 DO Work Phone: 13.2\S\13.2 Normal 12.0-14.8 [facility] 250 DO Work Phone: 34.1\S\34.1 Normal 32.5-35.6 [facility] 250 DO Work Phone: 30.5\S\30.5 Normal 27.5-35.2 -[facility] [place] 250 DO Work Phone: 3.3\S\3.3 Normal 1.8-7.7 [facility] 250 DO Work Phone: 0.1\S\0.1 Normal 0-0.5 [facility] [place] 250 DO Work Phone: 0.6\S\0.6 Normal . [facility] [place] 250 DO Work Phone: 4.2\S\4.2 Normal . [facility] 250 DO Work Phone: 12.3\S\12.3 Normal . [facility] [place] 250 DO Work Phone: 24.2\S\24.2 Normal . [facility] 250 DO Work Phone: 0.0\S\0.0 Normal 0.0-0.2 [facility] [place] 250 DO Work Phone: Comment on above: PERFORMED BY:[place] [address] [address] [place], [place] [phone] MEDICAL DIRECTORSUNNY RANDALL M.D. 0.2\S\0.2 Normal 0.0-0.45 [facility] [place] 250 DO Work Phone: 0.7\S\0.7 Normal 0.0-0.8 [facility] 250 DO Work Phone: 1.4\S\1.4 Normal 1.00-4.8 [facility] 250 DO Work Phone: 89.6\S\89.6 Normal 83.5-101 [facility] [place] 250 DO Work Phone: 41.3\S\41.3 Normal 38.8-50.0 [facility] 250 DO Work Phone: 14.1\S\14.1 Normal 13.0-17.0 [facility] [place] 250 DO Work Phone: 4.61\S\4.61 Normal 3.90-5.60 [facility] [place] 250 DO Work Phone: 5.7\S\5.7 Normal 4.1-10.5 [facility] [place] 250 DO Work Phone: 30.0\S\30.0 Normal 25.1-36.5 [facility] [place] 250 DO Work Phone: Comment on above: PERFORMED BY:[place] [address] [address] [place], [place] [phone] MEDICAL DIRECTORSUNNY RANDALL M.D. 1.0\S\1.0 Normal [facility] [place] [facility] DO Work Phone: Comment on above: INR [...] valves: 3 - 4.5 11.2\S\11.2 Normal 9.0-12.9 [facility] [place] 250 DO Work Phone: 27.8\S\27.8 Normal 22.0-30.0 [facility] [place] 250 DO Work Phone: 102\S\102 Normal 95-114 [facility] [place] 250 DO Work Phone: 5.0\S\5.0 Normal 3.5-5.1 [facility] [place] 250 DO Work Phone: 136\S\136 Normal 136-146 [facility] [place] 250 DO Work Phone: 7\S\7 below low threshold 9-23 [facility] 250 DO Work Phone: > 60 Normal [facility] [place] 250 DO Work Phone: Comment on above: GFR estimated refere nce range: According to KDOQI guidelines, <60 ml/min/1.73m2 is sufficient to diagnose a patient with chronic kidney disease. 0.96\S\0.96 Normal 0.64-1.27 [facility] [place] 250 DO Work Phone: 3.8\S\3.8 Normal <5.0 [facility] 250 DO Work Phone: Comment on above: PERFORMED BY:[place] [address] [place] [place], [place] [phone] MEDICAL DIRECTORSUNNY RANDALL M.D. 41\S\41 Normal [facility] 250 DO Work Phone: 208\S\208 above high threshold 35-149 [facility] [place] 250 DO Work Phone: Comment on above: TRIG ATP III CLASSIF ICATION TRIG less than 150 mg/dL Normal TRIG 150-199 mg/dL Borderline high TRIG 200-500 mg/dL High TRIG greater than 500 mg/dL Very high Standard traceable to the Center for Disease Conrtrol and Prevention (CDC) test method. 31\S\31 Normal 29-71 [facility] 250 DO Work Phone: Comment on above: HDL CHOL ATP-III CLA SSIFICATION Cardiovascular Risk HDL > or equal to 60 mg/dL LOW HDL < 40 mg/dL HIGH Negative Normal Negative [facility] [place] 250 DO Work Phone: Comment on above: This is a duplicate Aishwarya SARS Antigen (GENEVA) result to be used for statistical tracking purpose only.PERFORMED BY:[facility] [place], [place] [phone] MEDICAL DIRECTORSUNNY RANDALL M.D. Platelet mean volume Auto (B ld) [Entitic vol]Ordered By: Jermaine Jackson on 05-11-2022 Platelet mean volume (Bld) [Entitic vol] 8.0 fL 6.6-10.[address] [facility] Platelet poor plasma interna tional normalized ratio (INR) by coagulation assay (relatOrdered By: Jermaine Jackson on 05-11-2022 INR Coag (PPP) [Relative time] 1.0 {INR} [facility] Comment on above: INR Therapeutic Rang [...] 05-11-2022 Platelets (Bld) [#/Vol] 240 10*3/uL 150-[address] [facility] RBC Auto (Bld) [#/Vol]Ordere d By: Jermaine Jackson on 05-11-2022 RBC (Bld) [#/Vol] 4.61 10*6/uL 3.90-5.60 [facility] Serum or plasma chloride micki surement (moles/volume)Ordered By: Jermaine Jackson on 05-11-2022 Chloride [Moles/Vol] 102 mmol/L 95-114 [facility] Serum or plasma high density lipoprotein (HDL) cholesterol measurementOrdered By: Jermaine Jackson on 07-14-2022 Cholesterol in HDL [Mass/Vol] 31 mg/dL 29-[address] [facility] Comment on above: HDL CHOL ATP-III CLA SSIFICATION Cardiovascular Risk HDL > or equal to 60 mg/dL LOW HDL < 40 mg/dL HIGH HDL CHOL ATP-III CLA SSIFICATION Cardiovascular RiskHDL > or equal to 60 mg/dL LOWHDL < 40 mg/dL HIGH Serum or plasma potassium me asurement (moles/volume)Ordered By: Jermaine Jackson on 05-11-2022 Potassium [Moles/Vol] 5.0 mmol/L 3.5-5.1 [facility] Serum or plasma sodium measu rement (moles/volume)Ordered By: Jermaine Jackson on 05-11-2022 Sodium [Moles/Vol] 136 mmol/L 136-146 [facility] Serum or plasma total carbon dioxide measurement (moles/volume)Ordered By: Jermaine Jackson on 05-11-2022 CO2 [Moles/Vol] 27.8 mmol/L 22.0-30.0 [facility] Serum or plasma total choles terol/high density lipoprotein (HDL) cholesterol mass ratOrdered By: Jermaine Jackson on 05-11-2022 Cholesterol.total/Cho lesterol in HDL [Mass ratio] 3.8 {ratio} <5.[address] [facility] Serum or plasma urea nitroge n measurement (mass/volume)Ordered By: Jermaine Jackson on 05-11-2022 Urea nitrogen [Mass/Vol] 7 mg/dL 9-[address] [facility] Triglyceride [Mass/volume] i n Serum or PlasmaOrdered By: Jermaine Jackson on 05-11-2022 Triglyceride [Mass/Vol] 208 mg/dL 35-[address] [facility] Comment on above: TRIG ATP III [...] Disease Conrtrol and Prevention (CDC) test method. [facility] CARDIAC STRESS/REST INJE CTIONon 04-03-2022 [facility] CARDIAC STRESS/REST INJECTION Patient Name: ZAID MELLO STUDY: MYOCARDIAL PERFUSION STRESS TEST WITH LEXISCAN Performing facility: [facility], [address] [place] [address], [address], [place] [address] [facility] Provider: NONE PCP: Dr. Tayler Villasenor Supervising provider: Reji Adame DO, [facility] INDICATION: SOB; Pre-operative risk assessment for Lung scheduled at [place] on TBD. HISTORY: Gender: M; Age: 61 y/o ; Height: 175.26 cm; Weight: 225.8146591 kg. CAD; High Cholesterol; Previous PR; SOB; Lung mass Denies smoking. CABG on 2020. Cardiac catheterization on 2020. PTCA on 2020. COMPARISON: No comparison. ACCESSION NUMBER(S): [id number]; [id number]; [id number] ORDERING CLINICIAN: WALT BARRAGAN TECHNIQUE: ONE DAY [...] Electronically signed by: JUDY KABA MD Normal [facility] No Panel Informationon 04-03 Normal -[facility] [address] [place] Work Phone: Office Visit (Cardiology)on 02-21-2022 Follow-up [...] Patient Instructions By signing my name below, IMargie LPN,Marthaibelo, attest that this documentation has been prepared [...] has had previous CABG with subsequent inferior PR in March 2021 with primary revascularization of [...] Recorded: 21Feb2022 11:13AM Heart Rate62, L Radial Yxtaxgpo019, LUE, Sitting Lxjfgnfyu30, LUE, Sitting Height5 ft 9 in Azzjdx712 lb BMI Trkdaoxqub30.93 kg/m2 BSA Calculated2.16 Tobacco Useb) No PHQ-2 [...] pedal pulses (more content not included)... Normal [employer] Tobacco Screening.on 022 Adult depression screening assessment No [facility] [place] 250 DO Work Phone: Tobacco use status CPHS b) No [facility] 250 DO Work Phone: Laboratory - CoagulationOrde red By: Demetrio Floyd on 11-28-2021 PT Coag (PPP) [Time] 11.3 s 9.0-12.9 [facility] Platelet poor plasma interna tional normalized ratio (INR) by coagulation assay (relatOrdered By: Demetrio Floyd on 11-28-2021 INR Coag (PPP) [Relative time] 1.0 {INR} [facility] Comment on above: INR Therapeutic Rang [...] 11-28-2021 Platelets (Bld) [#/Vol] 207 10*3/uL 150-[address] [facility] Glucose Glucometer (BldC) [M ass/Vol]Ordered By: Mickie Das on 11-21-2021 Glucose [Mass/Vol] 113 mg/dL [facility] Comment on above: Random Glucose Refer ence Range is dependent on time and content of last meal. Glucose of more than 200 mg/dL in a nonstressed, ambulatory subject supports the diagnosis of Diabetes Mellitus. No Panel InformationOrdered By: Mickie Das on 11-21-2021 Bedside Glucose Comment Glu2: cleaned meter [facility] Vital Signs Date Time Vital Sign Value Performing Clinician Carlton fofana 01-04-2024 08:32-0500 Body height 176.5 cm Cornelio Birmingham MD Work Phone: [facility] 01-04-2024 08:32-0500 Body mass index (BMI) [Ratio] 32.09 kg/m2 Cornelio Birmingham MD Work Phone: [facility] [employer] [facility] 01-04-2024 08:32-0500 Body temperature 97.5 [degF] Cornelio Birmingham MD Work Phone: [facility] [employer] [facility] 01-04-2024 08:32-0500 Body weight 99.97 kg Cornelio Birmingham MD Work Phone: [facility] 01-04-2024 08:32-0500 Diastolic blood pressure 73 mm[Hg] Cornelio Birmingham MD Work Phone: [facility] [employer] [facility] 01-04-2024 08:32-0500 Heart rate 82 /min Cornelio Birmingham MD [facility] Phone[facility] 01-04-2024 08:32-0500 Respiratory rate 16 /min Cornelio Birmingham MD Work Phone: [facility] [employer] [facility] 01-04-2024 08:32-0500 SaO2% (BldA) [Mass fraction] 98 % Cornelio Birmingham MD Work Phone: [facility] [employer] [facility] 01-04-2024 08:32-0500 Systolic blood pressure 143 mm[Hg] Cornelio Birmingham MD Work Phone: [facility] [employer] [facility] 11-30-2023 12:57-0500 Body height 176.5 cm Aziza Lynch PERSONNEL WORKER-AUTOMOTIVE BRAKE TECHNICIAN Work Phone: [facility] [employer] [facility] 11-30-2023 12:57-0500 Body mass index (BMI) [Ratio] 33.19 kg/m2 Aziza Lynch PERSONNEL WORKER-AUTOMOTIVE BRAKE TECHNICIAN Work Phone: [facility] [employer] [facility] 11-30-2023 12:57-0500 Body weight 103.42 kg Aziza Lynch PERSONNEL WORKER-AUTOMOTIVE BRAKE TECHNICIAN Work Phone: [facility] [employer] [facility] 11-30-2023 12:57-0500 Diastolic blood pressure 77 mm[Hg] Aziza Sethiey PERSONNEL WORKER-AUTOMOTIVE BRAKE TECHNICIAN Work Phone: [facility] [employer] [facility] 11-30-2023 12:57-0500 Heart rate 70 /min Aziza yLnch PERSONNEL WORKER-AUTOMOTIVE BRAKE TECHNICIAN Work Phone: [facility] [employer] [facility] 11-30-2023 12:57-0500 Systolic blood pressure 121 mm[Hg] Aziza Lynch PERSONNEL WORKER-AUTOMOTIVE BRAKE TECHNICIAN Work Phone: [facility] [employer] [facility] 11-28-2023 15:50-0500 Body height 176.5 cm Marcie ROSADO Work Phone: [facility] [employer] [facility] 11-28-2023 15:50-0500 Body mass index (BMI) [Ratio] 33.19 kg/m2 Marcie ROSADO Work Phone: [facility] 11-28-2023 15:50-0500 Body weight 103.42 kg Marcie ROSADO Work Phone: [facility] [employer] [facility] 11-28-2023 15:50-0500 Diastolic blood pressure 76 mm[Hg] Marcie ROSADO Work Phone: [facility] [employer] [facility] 11-28-2023 15:50-0500 Heart rate 82 /min Marcie ROSADO Work Phone: [employer] 11-28-2023 15:50-0500 Systolic blood pressure 121 mm[Hg] Marcie ROSADO Work Phone: [employer] 10-24-2023 10:30-0500 Body height 176.5 cm [facility] 10-24-2023 10:30-0500 Body mass index (BMI) [Ratio] 33.19 kg/m2 [facility] 10-24-2023 10:30-0500 Body weight 103.42 kg Pm 2 [employer] 08-09-2023 08:30-0400 Body height 181.61 cm Mickie Das Other [employer] Other 08-09-2023 08:30-0400 Body mass index (BMI) [Ratio] 30.67 kg/m2 Mickie Das Other [employer] Other 08-09-2023 08:30-0400 Body temperature 97.3 [degF] Mickie Das Other [employer] Other 08-09-2023 08:30-0400 Body weight 101.15 kg Mickie Pippa Other [employer] Other 08-09-2023 08:30-0400 Diastolic blood pressure 64 mm[Hg] Mickie Das Other [employer] Other 08-09-2023 08:30-0400 Respiratory rate 20 /min Paulinojuan diego Das Other [employer] Other 08-09-2023 08:30-0400 SaO2% (BldA) [Mass fraction] 97 % Mickie Das Other [employer] Other 08-09-2023 08:30-0400 Systolic blood pressure 120 mm[Hg] Mickie Das Other [employer] Other 10-04-2022 09:52-0500 Body height 175.26 cm Shaikh Kyawwwad Work Phone: [facility] 250 DO Work Phone: 10-04-2022 09:52-0500 Body mass index (BMI) [Ratio] 32.86 kg/m2 Shaikh Kyawwwad Work Phone: [facility] [place] 250 DO Work Phone: 10-04-2022 09:52-0500 Body surface area Derived from formula 2.16 m2 Shaikh Veliawad Work Phone: [facility] [place] 250 DO Work Phone: 10-04-2022 09:52-0500 Body weight 100.93 kg Shaikh Kyawwwad Work Phone: [facility] 250 DO Work Phone: 10-04-2022 09:52-0500 Diastolic blood pressure 76 mm[Hg] Shaikh Kyawwwad Work Phone: [facility] 250 DO Work Phone: 10-04-2022 09:52-0500 Heart rate 66 /min Hatfield Fawwad Work Phone: [facility] [place] 250 DO Work Phone: 10-04-2022 09:52-0500 Systolic blood pressure 132 mm[Hg] Hatfield Fawwad Work Phone: [facility] 250 DO Work Phone: 07-28-2022 17:24-0400 Diastolic blood pressure 72 mm[Hg] MD Consuelo Villasenor Work Phone: [facility] 07-28-2022 17:24-0400 Heart rate 66 /min MD Consuelo Villasenor Work Phone: [facility] 07-28-2022 17:24-0400 Respiratory rate 18 /min MD Consuelo Villasenor Work Phone: [facility] 07-28-2022 17:24-0400 SaO2% (BldA) [Mass fraction] 96 % MD Consuelo Villasenor Work Phone: [facility] 07-28-2022 17:24-0400 Systolic blood pressure 112 mm[Hg] MD Consuelo Villasenor Work Phone: [facility] 07-28-2022 16:18-0400 Body temperature 97.3 [degF] MD Consuelo Villasenor Work Phone: [facility] 07-28-2022 14:14-0400 Body height 175.26 cm MD Consuelo Villasenor Work Phone: [facility] 07-28-2022 05:45-0400 Body weight 99.8 kg MD Consuelo Villasenor Work Phone: [facility] 05-12-2022 14:03-0400 Diastolic blood pressure 75 mm[Hg] MD Consuelo Villasenor Work Phone: [facility] 05-12-2022 14:03-0400 Heart rate 55 /min MD Consuelo Villasenor Work Phone: [facility] 05-12-2022 14:03-0400 Respiratory rate 16 /min MD Consuelo Villasenor Work Phone: [facility] 05-12-2022 14:03-0400 SaO2% (BldA) [Mass fraction] 97 % MD Consuelo Villasenor Work Phone: [facility] 05-12-2022 14:03-0400 Systolic blood pressure 119 mm[Hg] MD Consuelo Draperhorn Work Phone: [facility] 05-11-2022 07:06-0400 Body height 177.8 cm MD Consuelo Villasenor Work Phone: [facility] 05-11-2022 07:06-0400 Body mass index (BMI) [Ratio] 31.9 kg/m2 MD Consuelo Villasenor Work Phone: [facility] 05-11-2022 07:06-0400 Body weight 101 kg MD Consuelo Draperhorn Work Phone: [facility] 05-11-2022 00:00-0400 45 1 Consuelo Daphne Jacklyn Work Phone: [facility] [place] 250 DO Work Phone: Comment on above: [employer]SL[employer] 04-03-2022 12:00-0400 58 1 Consuelo Serna Jacklyn Work Phone: [facility] [address] [place] Work Phone: Comment on above: [id number] 03-08-2022 16:15-0400 Body height 181.61 cm Mickie Das Other [employer] [facility] [employer] Other 03-08-2022 16:15-0400 Body mass index (BMI) [Ratio] 30.25 kg/m2 Mickie Das Other [employer] Other 03-08-2022 16:15-0400 Body temperature 97 [degF] Mickie Das Other [employer] [facility] [employer] Other 03-08-2022 16:15-0400 Body weight 99.79 kg Mickie Das Other [employer] Other 03-08-2022 16:15-0400 Diastolic blood pressure 74 mm[Hg] Mickie Das Other [employer] Other 03-08-2022 16:15-0400 Respiratory rate 20 /min Mickie Das Other [employer] Other 03-08-2022 16:15-0400 SaO2% (BldA) [Mass fraction] 96 % Mickie Das Other [employer] Other 03-08-2022 16:15-0400 Systolic blood pressure 130 mm[Hg] Mickie Das Other [employer] Other 02-21-2022 11:13-0400 Body height 175.26 cm No PCP None [facility] [place] 250 DO Work Phone: 02-21-2022 11:13-0400 Body mass index (BMI) [Ratio] 32.93 kg/m2 No PCP None [facility] [place] 250 DO Work Phone: 02-21-2022 11:13-0400 Body surface area Derived from formula 2.16 m2 No PCP None [facility] [place] 250 DO Work Phone: 02-21-2022 11:13-0400 Body weight 101.15 kg No PCP None [facility] 250 DO Work Phone: 02-21-2022 11:13-0400 Diastolic blood pressure 74 mm[Hg] No PCP None [facility] [place] 250 DO Work Phone: 02-21-2022 11:13-0400 Heart rate 62 /min No PCP None [facility] [place] 250 DO Work Phone: 02-21-2022 11:13-0400 Systolic blood pressure 118 mm[Hg] No PCP None -[facility] DO Work Phone: 11-30-2021 14:15-0500 Body height 181.61 cm Mickie Hungирина Other [employer] Other 11-30-2021 14:15-0500 Body mass index (BMI) [Ratio] 30.53 kg/m2 Mickie Hungирина Other [employer] Other 11-30-2021 14:15-0500 Body temperature 97 [degF] Mickie Hungирина Other [employer] Other 11-30-2021 14:15-0500 Body weight 100.7 kg Mickie Hungирина Other [employer] Other 11-30-2021 14:15-0500 Diastolic blood pressure 78 mm[Hg] Mickie Hungирина Other [employer] Other 11-30-2021 14:15-0500 Respiratory rate 20 /min Mickie Hungирина Other [employer] Other 11-30-2021 14:15-0500 SaO2% (BldA) [Mass fraction] 99 % Mickie Hungирина Other [employer] Other 11-30-2021 14:15-0500 Systolic blood pressure 140 mm[Hg] Mickie Hungban Other [employer] Other 11-28-2021 13:00-0500 Heart rate 64 /min MD Consuelo Villasenor Work Phone: [facility] 11-28-2021 13:00-0500 Respiratory rate 16 /min MD Consuelo Villasenor Work Phone: [facility] 11-28-2021 13:00-0500 SaO2% (BldA) [Mass fraction] 95 % MD Consuelo Villasenor Work Phone: [facility] 11-28-2021 11:40-0500 Diastolic blood pressure 75 mm[Hg] MD Consuelo Villasenor Work Phone: [facility] 11-28-2021 11:40-0500 Systolic blood pressure 122 mm[Hg] MD Consuelo Villasenor Work Phone: [facility] 11-28-2021 09:39-0500 Body height 175.26 cm MD Consuelo Villasenor Work Phone: [facility] 11-28-2021 09:39-0500 Body mass index (BMI) [Ratio] 32.6 kg/m2 MD Consuelo Villasenor Work Phone: [facility] [facility] 11-28-2021 09:39-0500 Body weight 100.24 kg MD Consuelo Villasenor Work Phone: [facility] 11-15-2021 11:30-0500 Body height 181.61 cm Mickie Das Other [employer] Other 11-15-2021 11:30-0500 Body mass index (BMI) [Ratio] 30.39 kg/m2 Mickie Das Other [employer] Other 11-15-2021 11:30-0500 Body temperature 97.9 [degF] Mickie Das Other [employer] Other 11-15-2021 11:30-0500 Body weight 100.25 kg Mickie Das Other [employer] Other 11-15-2021 11:30-0500 Diastolic blood pressure 76 mm[Hg] Mickie Das Other [employer] Other 11-15-2021 11:30-0500 Respiratory rate 20 /min Mickie Das Other [employer] Other 11-15-2021 11:30-0500 SaO2% (BldA) [Mass fraction] 96 % Mickie Das Other [employer] Other 11-15-2021 11:30-0500 Systolic blood pressure 134 mm[Hg] Mickie Das Other [employer] Other Encounters Encounter Date Encounter Type Care Provider Facility Start: 06-06-2024 End: 06-06-2024 ambulatory REBECA BURNS Not Available Start: 06-03-2024 End: 06-03-2024 ambulatory REBECA BURNS Not Available Start: 05-29-2024 End: 05-29-2024 ambulatory REBECA BURNS Not Available Start: 05-27-2024 End: 05-27-2024 ambulatory TIMOTHY ADRIANMinerva Not Available Start: 05-26-2024 End: 05-26-2024 ambulatory HATFIELD PAULD Not Available Start: 05-23-2024 End: 05-23-2024 ambulatory JUNIE J CEM Not Available Start: 05-20-2024 End: 05-20-2024 ambulatory REBECA BURNS Not Available Start: 05-15-2024 End: 05-15-2024 ambulatory MAMADOU TATTERSALL Not Available Start: 05-13-2024 End: 05-13-2024 ambulatory JUNIE J CEM Not Available Start: 05-09-2024 End: 05-09-2024 ambulatory REBECA BURNS Not Available Start: 05-08-2024 End: 05-08-2024 ambulatory MAMADOU TATTERSALL Not Available Start: 04-28-2024 End: 04-28-2024 ambulatory JUNIE J CEM Not Available Start: 04-15-2024 End: 04-15-2024 ambulatory SHAIKH LEXI [facility] Start: 04-14-2024 End: 04-14-2024 ambulatory SHAIKH LEXI Not Available Start: 03-18-2024 End: 03-18-2024 ambulatory VEENA G [facility] Start: 03-11-2024 End: 03-11-2024 ambulatory VEENA [facility]at [facility] Start: 02-18-2024 End: 02-18-2024 ambulatory SHAIKH LEXI Not Available Start: 02-06-2024 End: 02-06-2024 ambulatory JUNIE DONOVAN Not Available Start: 02-04-2024 Refill Marcie ROSADO Work Phone: [facility] Start: 01-04-2024 End: 01-04-2024 Orders Only Christelle Ashraf [facility] - Medical Oncology Comment on above: Malignant neoplasm o f bronchus of right lower lobe ([facility]) (Primary Dx) Start: 01-04-2024 End: 01-04-2024 Office outpatient visit 25 minutes Cornelio Birmingham MD Work Phone: Jesusita Ashraf [facility] - Medical Oncology Comment on above: Malignant neoplasm o f bronchus of right lower lobe ([facility]-H[facility]) (Primary Dx) Start: 12-31-2023 End: 12-31-2023 ambulatory CORNELIO BIRMINGHAM [facility] Start: 12-31-2023 End: 12-31-2023 ambulatory SHAIKH PAULD Not Available Start: 12-29-2023 Refill Aziza Lynch APRN-JEET Work Phone: [facility] Start: 12-24-2023 End: 12-24-2023 ambulatory REJI Barakat ROMERO [facility] Start: 12-04-2023 End: 12-04-2023 ambulatory VEENA Braakat [facility] Start: 11-30-2023 End: 11-30-2023 ambulatory AZIZA LYNCH [facility] Start: 11-30-2023 End: 11-30-2023 Office outpatient visit 15 minutes Aziza Lynch APRN-AUTOMOTIVE BRAKE TECHNICIAN [facility]: [facility] Comment on above: Urinary retention (P rimary Dx); Gross hematuria Start: 11-28-2023 ambulatory MARCIE GREEN [facility] Start: 11-28-2023 End: 11-28-2023 Office outpatient visit 25 minutes Marcie Green PA Work Phone: [facility] Comment on above: Bladder stones (Prim seymour Dx); Benign prostatic hyperplasia with lower urinary tract symptoms, symptom details unspecified Start: 11-28-2023 End: 11-28-2023 ambulatory REJI ROMERO [facility] Start: 11-27-2023 End: 11-27-2023 ambulatory [facility] Ambulatory Start: 11-21-2023 [facility] Start: 11-19-2023 End: 11-20-2023 ambulatory Mariah Whiting MD Facility:[facility] Start: 11-05-2023 Telephone encounter Reji Romero MD Work Phone: [facility] Start: 11-05-2023 End: 11-05-2023 Evaluation and management of inpatient GISSELLEJb CARVER [facility] Start: 11-05-2023 End: 11-05-2023 Evaluation and management of inpatient REJI ROMERO [facility] Start: 10-30-2023 Orders Only Aziza Lynch APRN-AUTOMOTIVE BRAKE TECHNICIAN Work Phone: [facility] Start: 10-24-2023 End: 10-24-2023 Patient encounter procedure Pm Pre-Admission Testing 2 [facility] - Pre Admit Comment on above: Preop examination (P rimary Dx); Hypertension, unspecified type; Coronary artery disease, unspecified vessel or lesion type, unspecified whether angina present, unspecified whether [place] or transplanted heart; Chronic obstructive pulmonary disease, unspecified COPD type ([facility]) Start: 10-24-2023 End: 10-24-2023 Preprocedural examination done Pm 2 [facility] Start: 10-24-2023 End: 10-24-2023 ambulatory ISAÍAS VANCE [facility] Start: 10-24-2023 Encounter for other preprocedural examination CORNELIO BIRMINGHAM [facility] Start: 10-01-2023 End: 10-02-2023 ambulatory Mariah Whiting MD Facility:[facility] Start: 09-05-2023 ambulatory Facility:[facility] Start: 08-09-2023 End: 08-09-2023 ambulatory Mickie Das Other [employer] Other Start: 08-09-2023 Office outpatient vi sit 25 minutes Mickie Das [facility] Start: 08-02-2023 End: 08-02-2023 ambulatory Shaikh Lexi Facility:[facility] Start: 08-02-2023 End: 08-02-2023 ambulatory MD Shaikh Elliott Work Phone: [facility] Work Phone: Start: 08-02-2023 End: 08-02-2023 Patient encounter procedure MD Shaikh Elliott Work Phone: [facility]-MRI Main [place] Work Phone: Start: 06-26-2023 Rx Renewal Shaikh Lexi Work Phone: [facility] [place] 250 DO Work Phone: Start: 05-25-2023 Rx Renewal Hatfield Veliawad Work Phone: [facility] [place] 250 DO Work Phone: Start: 05-02-2023 Rx Renewal Hatfield Kyawwwad Work Phone: [facility] [place] 250 DO Work Phone: Start: 04-18-2023 Telephone encounter Shaikh Velia escamilla Work Phone: [facility] [place] 250 DO Work Phone: Start: 12-08-2022 End: 12-08-2022 ambulatory Mickie Das Other [facility] [employer] Other Start: 12-08-2022 Telephone encounter Paulinojuan diego Pippa [facility] Start: 11-20-2022 Rx Renewal Shaikh Lexi Work Phone: [facility] [place] 250 DO Work Phone: Start: 10-04-[address] Walt Jackson Facility: Start: 10-04-2022 Office outpatient vi sit 25 minutes Shaikh Lexi Work Phone: [facility] [place] 250 DO Work Phone: Start: 08-04-[address] Walt Jackson Facility: Start: 07-28-2022 ambulatory Consuelo Villasenor Facility:[id number] Start: 07-27-[address] Walt Jackson Facility:[id number] Start: 07-26-2022 ambulatory Consuelo Villasenor Facility:[id number] Start: 07-26-2022 End: 07-28-2022 Evaluation and management of inpatient MD Consuelo Villasenor Work Phone: [facility] [place] [facility] Start: 07-26-2022 End: 07-28-2022 observation encounter MD Consuelo Villasenor Work Phone: [facility] Work Phone: Start: 07-26-2022 End: 07-26-2022 ambulatory SABINO COLES Facility:H1 Start: 06-28-2022 Telephone encounter Consuelo ortega Work Phone: [facility] [place] 250 DO Work Phone: Start: 06-09-2022 AUDIT Consuelo Serna Damian michaelhorn Work Phone: [facility] 250 DO Work Phone: Start: 05-30-2022 End: 05-30-[address] ADRIANA NAGY Facility:H1 Start: 05-12-[address] Walt Jackson Facility:[id number] Start: 05-12-2022 [facility], Provider: Walt Jackson, Status: Pen, Time: 9:00 AM Consuelo Molinarmerhorn Work Phone: [facility] 250 DO Work Phone: Start: 05-12-2022 End: 05-12-2022 Admission to same day surgery center MD Consuelo Villasenor Work Phone: [facility]-[employer] Start: 05-11-2022 Chart Update Consuelo Serna Damian michaelhorn Work Phone: [facility] 250 DO Work Phone: Start: 05-11-2022 End: 05-11-2022 Patient encounter procedure MD Consuelo Villasenor Work Phone: [facility] [employer] Testing Start: 05-10-2022 Telephone encounter Consuelo ortega Work Phone: [facility] [place] 250 DO Work Phone: Start: 04-03-2022 Patient encounter procedure Consuelo Draperhorn Work Phone: [facility] [place] 250[place] Work Phone: Start: 03-08-2022 End: 03-08-2022 ambulatory Mickie Das Other [email or web address] Other Start: 03-08-2022 Office outpatient vi sit 25 minutes Mickie Das [facility] Start: 02-21-2022 Office outpatient vi sit 15 minutes No PCP None [facility] 250 DO Work Phone: Start: 02-21-[address] Walt Jackson Facility: Start: 02-15-2022 End: 02-15-2022 Patient encounter procedure MD Consuelo Villasenor Work Phone: [facility]-CT Scan Main [place] Start: 02-06-2022 Rx Renewal Referring Prov ider Unknown [facility] 250 DO Work Phone: Start: 01-25-2022 End: 01-25-2022 ambulatory Kamal Chaban Other [employer] Other Start: 01-25-2022 Telephone encounter Kamal Chaban [facility] Start: 01-04-2022 End: 01-04-2022 Patient encounter procedure MD Consuelo Villasenor Work Phone: [facility]-Respiratory Therapy Start: 12-26-2021 End: 12-26-2021 ambulatory Kamal Chaban Other [employer] Other Start: 12-26-2021 Telephone encounter Kamal Chaban [facility] Start: 12-05-2021 End: 12-05-2021 Patient encounter procedure MD Consuelo Villasenor Work Phone: [facility]-XRay [facility] Start: 11-30-2021 End: 11-30-2021 ambulatory Kamal Chaban Other [employer] Other Start: 11-30-2021 Office outpatient vi sit 25 minutes Kamal Chaban [facility] Start: 11-29-2021 End: 11-29-2021 Patient encounter procedure MD Consuelo Villasenor Work Phone: [facility]-XRay [facility] Start: 11-28-2021 End: 11-28-2021 Admission to same day surgery center MD Consuelo Villasenor Work Phone: [facility]-CT Scan Main [place] Start: 11-21-2021 End: 11-21-2021 Patient encounter procedure MD Consuelo Villasenor Work Phone: [facility]-Pet Scan Start: 11-15-2021 End: 11-15-2021 ambulatory Mickie Das Other [facility] [employer] Other Start: 11-15-2021 Office outpatient ne w 45 minutes Mickie Das [facility] Patient encounter status Shaikh Lexi Work Phone: [facility] [place] 250 DO Work Phone: Procedures Date Procedure Procedure Detail Performing Clinician Start: 03-18-2024 Follow-up visit Follow-up VEENA CASIANO Start: 01-04-2024 Follow-up visit Follow-up CORNELIO BIRMINGHAM Start: 11-30-2023 Follow-up visit Follow-up AZIZA LYNCH [...] graft Referring Provider Unknown Dental surgical procedure laurencekh Veliaandi Work Phone: History of coronary artery bypass [...] Treatment Date Care Activity Detail Author Start: 01-03-2025 Adult BMI Screening Adult BMI Screen ing [facility] Start: 12-30-2024 Tobacco Screening Tobacco Screening [facility] Start: 12-24-2024 Tobacco Screening Tobacco Screening [facility] Start: 11-30-2024 Adult BMI Screening Adult BMI Screen ing [facility] Start: 11-28-2024 Adult BMI Screening Adult BMI Screen ing [facility] Start: 11-28-2024 Tobacco Screening Tobacco Screening [facility] Start: 11-05-2024 Adult BMI Screening Adult BMI Screen ing [facility] Start: 11-05-2024 Tobacco Screening Tobacco Screening [facility] Start: 10-29-2024 Tobacco Screening Tobacco Screening [facility] Start: 10-24-2024 Adult BMI Screening Adult BMI Screen ing [facility] Start: 10-24-2024 Tobacco Screening Tobacco Screening [facility] Start: 07-31-2024 End: 07-31-2024 Patient encounter procedure 07/31/2024 10:15 AM EDT Office Visit Jesusita Francisco Javier Aguas [place]enas [facility] - Medical Oncology [address] [place] [address] Cornelio Birmingham MD [address] [facility] [address] [place], [place] [id number] Jesusita Ashraf [facility] - Medical Oncology Start: 07-01-2024 End: 01-03-2025 CBC W Auto Differential panel - Blood CBC auto differential Lab Routine 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 (CMS-HCC) Expected: 07/01/2024 (Approximate), Expires: 01/03/2025 [facility] Comment on above: Expected: 07/01/2024 (Approximate), Expires: 01/03/2025 Start: 07-01-2024 End: 01-03-2025 Comprehensive metabolic 2000 panel - Serum or Plasma Comprehensive metabolic panel Lab Routine 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 (CMS-HCC) Expected: 07/01/2024 (Approximate), Expires: 01/03/2025 [facility] Comment on above: Expected: 07/01/2024 (Approximate), Expires: 01/03/2025 Start: 07-01-2024 End: 01-03-2025 CT Abdomen and Pelvis W contrast IV CT abdomen and pelvis with contrast Imaging Routine 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 (CMS-HCC) Expected: 07/01/2024, Expires: 01/03/2025 [facility] Comment on above: Expected: 07/01/2024 , Expires: 01/03/2025 Start: 07-01-2024 End: 01-03-2025 CT Chest limited W contrast IV CT chest with contrast Imaging Routine 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 (CMS-HCC) Expected: 07/01/2024, Expires: 01/03/2025 [facility] Work Phone: Comment on above: Expected: 07/01/2024 , Expires: 01/03/2025 Start: 06-29-2024 Influenza vaccination Influenza Vacc ine [facility] Start: 02-27-2024 End: 02-27-2024 Patient encounter procedure 02/27/2024 11:30 AM EDT Office Visit [facility] [address] [place] [address] [place] [address] [address] Reji Romero MD [address] [place] [address] [id number] [facility] Start: 02-18-2024 End: 02-18-2024 Admission to same day surgery center 02/18/2024 9:00 AM EDT - 02/18/2024 10:30 AM EDT Surgery [facility] [address] [place] [address] Reji Romero MD [address] [place] [address] [id number] CYSTOSCOPY BIPOLAR TRANSURETHRAL RESECTION PROSTATE [97341 (CPT )] [facility] Comment on above: CYSTOSCOPY BIPOLAR T RANSURETHRAL RESECTION PROSTATE [12019 (CPT )] Start: 02-18-2024 Subsequent hospital visit by physician 02/18/2024 9:00 AM EDT Hospital Encounter [facility] [address] [place] [address] Reji Romero MD [address] [place] [address] [facility] Start: 02-18-2024 End: 02-18-2024 Trurl electrosurg rescj prostate bleed complete CYSTOSCOPY BIPOLAR TRANSURETHRAL RESECTION PROSTATE Bladder outlet obstruction 02/18/2024 9:00 AM EDT [facility] Start: 02-05-2024 End: 02-05-2024 Patient encounter procedure 02/05/2024 9:45 AM EDT Procedure visit [facility] - Pre Admit [address] [place] [address] [facility] - Pre Admit Start: 01-04-2024 End: 01-04-2024 Patient encounter procedure 01/04/2024 8:45 AM EST Office Visit Jesusita Mcintyre [facility] - Medical Oncology [address] [place] [address] Cornelio Birmingham MD [address] [place] [address] [facility] - Medical Oncology Start: 12-31-2023 End: 12-31-2023 Patient encounter procedure 12/31/2023 3:30 PM EST Appointment [facility] - CT Imaging [address] [place] [address] Cornelio Birmingham MD [address] [place] [address] [facility] - CT Imaging Start: 12-24-2023 End: 12-24-2023 Patient encounter procedure 12/24/2023 12:45 PM EST Office Visit [facility] [address] [place] [phone] Reji Romero MD [address] [place] [address] [facility] Start: 12-04-2023 End: 12-04-2023 ambulatory 12/04/2023 9:00 AM EST Support Visit [facility] [address] [place] [address] A [facility] [place] [phone] Veena Casiano MD [address] [place] [address] [facility] Start: 11-05-2023 End: 11-05-2023 Litholapaxy smpl/sm <2.5 cm LASER CYSTOSCOPY LITHOLAPAXY Bladder stones Benign prostatic hyperplasia with lower urinary tract symptoms, symptom details unspecified 11/05/2023 8:12 AM EST [facility] Start: 11-05-2023 End: 11-05-2023 Admission to same day surgery center 11/05/2023 8:00 AM EST - 11/05/2023 9:00 AM EST Surgery [facility] Surgery [address] [place] [phone] Reji Romero MD [address] [place] [address] CYSTOSCOPY LITHOLAPAXY [facility] Comment on above: CYSTOSCOPY LITHOLAPA XY Start: 11-05-2023 End: 11-05-2023 Anesthesia consultation 11/05/2023 8:00 AM EST Anesthesia Event [facility] [address] [place] [address] Gisselle Carver, DO [address] [place] [address] [facility] Start: 11-05-2023 End: 11-05-2023 CYSTOSCOPY LITHOLAPAXY CYSTOSCOPY LITHOLAPAXY Bladder stones Benign prostatic hyperplasia with lower urinary tract symptoms, symptom details unspecified 11/05/2023 8:00 AM EST [facility] Start: 11-05-2023 Subsequent hospital visit by physician 11/05/2023 8:00 AM EST Hospital Encounter [facility] Surgery [address] [place] [address] Reji Romero MD [facility] [place] [address] [facility] - Surgery Start: 10-03-2023 FUV, Provider: Walt Jackson, Status: Pen, Time: 10:00 AM [facility]UV, Provider: Walt Jackson, Status: Pen, Time: 10:00 AM [facility] [place] 250 DO Work Phone: Start: 06-29-2023 Influenza vaccination Influenza Vacc ine [facility] Start: 10-04-2022 FUV, Provider: Walt Jackson, Status: Pen, Time: 9:40 AM FUV, Provider: Walt Jackson, Status: Pen, Time: 9:40 AM [facility] [place] 250 DO Work Phone: Start: 07-28-[address] [facility] Start: 07-26-2022 Hospital admission [facility] Start: 07-26-2022 Referral to assisted living care manager [facility] Start: 07-26-[address] [facility] Start: 05-12-2022 End: 05-12-[address] [facility] Start: 02-21-2022 FUV, Provider: Walt Jackson, Status: Pen, Time: 9:50 AM [facility], Provider: Walt Jackson, Status: Pen, Time: 9:50 AM [facility] Work Phone: Start: 1979 Administration of varicella zoster vaccine Zoster (Shingles) Vaccine (1 of 2) [facility] Start: 1979 DTaP,Tdap and Td Vaccines (1 - Tdap) DTaP,Tdap and Td Vaccines (1 - Tdap) [facility] Start: 1978 Adult BMI Follow Up Plan Adult BMI Follow Up Plan [facility] Start: 1972 Depression Screening Depression Scre ening [facility] End: 01-03-2025 Creatinine includes GFR, serum Creatinine includes GFR, serum Lab Routine 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 (CMS-HCC) 1 Occurrences starting 01/04/2024 until 01/03/2025 [facility] [employer] [facility] Comment on above: 1 Occurrences starti ng 01/04/2024 until 01/03/2025 Patient Education [facility] Work Phone: Patient referral [facility] Work Phone: Payers Date Payer Category Payer Medicaid [id number] 2023 Self-pay [id number] 2022 Unknown [id number] 2022 Private Health Insurance [id number] 2017 Unknown 1960 Unknown [id number] 2.0.1.724543.3.579.2.593 1960 Unknown [id number] 2.0.1.704890.3.579.2.593 1960 Unknown [id number] 2.840.1.384445.3.579.2.356 1960 Unknown [id number] 2.840.1.887684.3.579.2.356 1960 Unknown [id number] 2.840.1.920248.3.579.2.356 1960 Unknown [id number] 2.840.1.635775.3.579.2.356 1960 Unknown [id number] 2.840.1.287209.3.579.2.356 1960 Unknown [id number] 2.16840.1.428454.3.579.2.356 1960 Unknown [id number] 2.840.1.250011.3.579.2.356 1960 Unknown [id number] 2.16.840.1.385326.3.579.2.727 1960 Unknown [id number] 2.16.840.1.248740.3.579.2.196 1960 Unknown [id number] 2.16.840.1.984621.3.579.2.196 1960 Unknown [id number] 2.16.840.1.184465.3.579.2.128 6 1960 Unknown [id number] 2.16.840.1.050350.3.579.2.128 6 1960 Unknown [id number] 2.16.840.1.625768.3.579.2.128 6 1960 Unknown [id number] 2.16.840.1.937913.3.579.2.128 6 1960 Unknown [id number] 2.16.840.1.246172.3.579.2.128 6 1960 Unknown [id number] 2.16.840.1.109318.3.579.2.128 6 1960 Unknown [id number] 2.16.840.1.073468.3.579.2.128 6 1960 Unknown [id number] 2.16.840.1.760022.3.579.2.128 6 1960 Unknown [id number] 2.16.840.1.169544.3.579.2.128 6 1960 Unknown [id number] 2.16.840.1.154979.3.579.2.128 6 1960 Unknown [id number] 2.16.840.1.029403.3.579.2.128 6 1960 Unknown [id number] 2.16.840.1.857763.3.579.2.128 6 1960 Unknown [id number] 2.16.840.1.952428.3.579.2.128 6 1960 Unknown [id number] 2.16.840.1.018164.3.579.2.128 6 1960 Unknown [id number] 2.16.840.1.324128.3.579.2.128 6 1960 Unknown [id number] 2.16.840.1.189923.3.579.2.128 6 1960 Unknown [id number] 2.16.840.1.455584.3.579.2.128 6 1960 Unknown [id number] 2.16.840.1.844739.3.579.2.128 6 1960 Unknown [id number] 2.16.840.1.075086.3.579.2.124 4 1960 Unknown [id number] 2.16.840.1.653501.3.579.2.125 9 1960 Unknown [id number] 2.16.840.1.347116.3.579.2.125 9 1960 Unknown [id number] 2.16.840.1.006215.3.579.2.125 9 1960 Unknown [id number] 2.16.840.1.288163.3.579.2.125 9 1960 Unknown [id number] 2.16.840.1.543439.3.579.2.125 9 1960 Unknown [id number] 2.16.840.1.746631.3.579.2.125 9 1960 Unknown [id number] 2.16.840.1.485451.3.579.2.125 9 1960 Unknown [id number] 2.16.840.1.601197.3.579.2.125 9 1960 Unknown [id number] 2.16.840.1.507206.3.579.2.125 9 1960 Unknown [id number] 2.16.840.1.879783.3.579.2.125 9 1960 Unknown [id number] 2.16.840.1.106232.3.579.2.125 9 1960 Unknown [id number] 2.16.840.1.581383.3.579.2.125 9 1960 Unknown [id number] 2.16.840.1.391486.3.579.2.125 9 1960 Unknown [id number] 2.16.840.1.603290.3.579.2.125 9 1960 Unknown [id number] 2.16.840.1.764833.3.579.2.125 9 1960 Unknown [id number] 2.16.840.1.155145.3.579.2.125 9 1959 Unknown [id number] Medicaid [employer] [id number] Unknown HCAP/HFA/FAP Active [id number] Unknown [id number] 2.16.840.1.799265.3.579.2.531 Unknown [id number] Social History Date Type Detail Facility Start: 12-06-2020 End: 10-24-2023 No alcohol use No alcohol use [employer] Other Comment on above: QUIT 15 YEARS AGO 20 06- SMOKED ABOUT 2 PPD; Start: 11-28-2021 End: 09-05-2023 Tobacco smoking status SCIS Ex-smoker (finding) [facility] Start: 1960 Sex Assigned At Male [facility] Start: 12-06-2020 End: 10-24-2023 Sex Assigned At [email or web address] Other End: 05-24-2005 History of tobacco use Current smoker [facility] End: 05-24-2005 History of tobacco use Cigarette Smoker [facility] Start: 09-05-2023 Tobacco use and exposure Smokeless tobacco non-user [facility] Start: 10-24-2023 End: 12-31-2023 Alcohol intake Current non-drinker of alcohol (finding) [facility] Housing Instability Unknown [facility] Start: 1960 Sex Assigned At Not on file [facility] [email or web address] [facility] Medical Equipment Procedure Code Equipment Code Equipment Origin al Text Equipment Identifier Dates Drug-eluting coronary artery stent, [id number]-gh lymer-coated [id number] FDA Start: 04-27-2021 Femoral artery closure plug/patch, synthetic polymer ()[id number] FDA Start: 04-27-2021 Lens 16.0 Paco Sn 60wf - [id number] - [id number] Start: 12-27-2017 Lens 16.0 Paco Sn 60wf - [id number] - [id number] Start: 02-28-2018 Goals Date Patient Goal Desired Activity /State Personal health goal Comment on above: Formatting of this n ote might be different from the original. Evaluation of progress towards goal: Patient will discharge home with , self care. - Martin Arroyo RN 11/30/22 11:39 AM Functional Status Date Assessment Result Facility 07-28-2022 Functional status Patient at Baseline [facility] Work Phone: Mental Status Date Assessment Result Facility 07-28-2022 Cognitive function Cognitive Sta tus Patient at Baseline [facility] Work Phone: Clinical Notes 12-27-2014 to 01-04-2024 Christelle Arriaga RN - 01/04/2024 9:20 AM Dejan Birmingham MD - 01/04/2024 8:45 AM ESTPatient Carri Lynch APRN-JEET - 11/30/2023 1:00 PM ALONZO Youssef - 11/28/2023 4:00 PM EST Note Date & Type Note Facility 01-04-2024 History of Presen t illness Narrative Patient is here for follow up with Dr. Birmingham for lung cancer. CT chest/a/p w contrast 06/2024 F/u 07/2024, CBC, CMP. Patient given calendar, verbalized understanding of future appointments. documented in this encounter [facility] 01-04-2024 History of Presen t illness Narrative Images from the original note were not included. [facility] 01/04/24 Zaid Mello is a 63 y.o. year old male seen today in the oncology clinic. Chief Complaint Patient presents with Follow-up History of Present Illness: Mr. Mello is a 63 y.o. male with history of COPD who was found to have 2.6 cm right lower lobe 2.6 centimeter nodular opacity since 2016. Bronchoscopy with bronchoalveolar lavage low right lower lobe 05/24/2017 was unremarkable no evidence of malignancy. PET scan was negative at that point. Patient had a repeat CT scan likely, right lower all lobe paraspinal lesion has increased in size over time. A paraspinal mass in the right lower lobe measures 4.8 x 3.3 x 2.3 cm. This has cavitary component centrally and involves the adjacent pleura. No mediastinal mass or adenopathy is evident. A right hepatic cysts, segment 8 appears stable measuring up to 6.8 cm. The patient was last see 10/2021, over the past year he was followed up by thoracic surgery. His PET scan to October 2022 showed: 2.8 cm area of increased radiotracer uptake within the lower lobe of the right lung, max SUV 3.09, with 2.7 cm cavitary nodule with lobulated borders on correlating CT. This is unchanged in size and radiotracer uptake from previous exam. Patient recently underwent lobectomy procedure, final path showed: CANCER CASE SUMMARY Synchronous Tumors: NA Procedure: Lobectomy Specimen laterality: right Tumor Focality: Single focus Tumor site: Lower lobe of lung Tumor size: 1.5 cm in greatest dimension (invasive component). Histologic type: Invasive lepidic adenocarcinoma Histologic Patterns Present: Lepidic, acinar and papillary Visceral Pleura Invasion: Not identified Direct Invasion of Adjacent Structures: Not identified Treatment Effect: No known presurgical treatment Lymphovascular invasion: Not identified Margin Status for Invasive Carcinoma: All margins are negative for Invasive carcinoma Closest Margin(s) to Invasive Carcinoma: bronchial Distance from Invasive Carcinoma to Closest Margin: > 3 cm. Margin Status for Non-Invasive Tumor: All margins negative for non-invasive tumor Lymph Node(s) from Prior Procedures: NA Regional Lymph Nodes -- Present Number of Lymph Nodes with Tumor: 0 Number of lymph nodes examined: 3 Cece Site(s) Examined: 7, 4R. 10R. Distant Site(s) Involved: NA TNM descriptors: NA pT Category: pT1b pN category: pN0 Interval history: The patient is doing well over the past six months, occasional shortness of breath during exertion. No significant cough or shortness of breath. No headaches or vision change. Weight has been stable. No significant pain along surgical incisions. He is not smoking several years ago. Past Medical History: Diagnosis Date Anesthesia emergence dysphoria BPH (benign prostatic hypertrophy) CAD (coronary artery disease) Cardiovascular disease Cataract Chest pain COPD (chronic obstructive pulmonary disease) (CMS-HCC) COPD, moderate (CMS-HCC) 04/09/2017 Emphysema of lung (CMS-HCC) Hyperlipemia Hypertension Injury of back Lung cancer (CMS-HCC) right lower lobe thoracotomy 11/2022 Myocardial infarction (CMS-HCC) Right lower lobe pulmonary nodule Seizures (CMS-HCC) had from ages [age], none since age 27 Shortness of breath Visual impairment Past Surgical History: Procedure Laterality Date BRONCHOSCOPY WITH FLUORO N/A 05/24/2017 Performed by Maritza Jang DO at [facility] CARDIAC CATHETER[facility] 03/2022 stent placed CORONARY ARTERY BYPASS GRAFT 01/16/2006 Triple DAVINCI THORACOTOMY ( RIGHT LOWER LOBE WEDGE RESECTION) , RIGHT LOBECTOMY,MEDIASTINAL LYMPH NODE DISECTION LYSIS OF PLEURAL ADHESIONS N/A 11/29/2022 Performed by Walt Barragan MD at [facility] LASER CYSTOSCOPY LITHOLAPAXY N/A 11/05/2023 Performed by Reji Romero MD at [facility] LIPOMA RESECTION PHACO KELMAN I IMPLANT INTRAOCULAR LENS Right 02/28/2018 Performed by Lashay Bui MD at [facility] PHACO KELMAN I IMPLANT INTRAOCULAR LENS Left 12/27/2017 Performed by Lashay Bui MD at [facility] SKIN BIOPSY excision of lypoma Family History Problem Relation Age of Onset Diabetes Father Heart disease Father Cancer Sister Stroke Maternal Grandmother No Known Problems Mother Social History Socioeconomic History Marital status: Spouse name: Not on file Number of children: Not on file Years of education: Not on file Highest education level: Not on file Occupational History Not on file Tobacco Use Smoking status: Former Types: Cigarettes Quit date: 05/24/2005 Years since quittin.6 Smokeless tobacco: Never Vaping Use Vaping Use: Never used Substance and Sexual Activity Alcohol use: No Drug use: No Sexual activity: Yes Partners: Female Other Topics Concern Caffeine Use Yes Comment: 2 cups of coffee a day Social History Narrative Not on file Social Determinants of Health Financial Resource Strain: Not on file Food Insecurity: No Food Insecurity (11/30/2023) Hunger Screening Food Insecurity - Worry: Never True Food Insecurity - Inability: Never True Transportation Needs: Not on file Physical Activity: Not on file Stress: Not on file Social Connections: Not on file Interpersonal Safety: Not on file Housing Instability: Not on file Allergies Allergen Reactions No Known Drug Allergies Medication List Accurate as of January 04, 2024 10:20 AM. If you have any questions, ask your nurse or doctor. Medications Continued This Visit aspirin 81 mg Refills: 0 Dose: 81 mg atorvastatin 40 mg tablet Quantity: 30 tablet Refills: 6 Dose: 40 mg Signed by: KARMEN Toussaint 40 mg, oral, Daily Commonly known as: LIPITOR finasteride 5 mg tablet Quantity: 30 tablet Refills: 6 Dose: 5 mg Signed by: Dr. Romero 5 mg, oral, Daily Commonly known as: PROSCAR isosorbide mononitrate 60 mg 24 hr tablet Refills: 0 Dose: 60 mg Commonly known as: IMDUR metoprolol tartrate 25 mg tablet Quantity: 180 tablet Refills: 3 Signed by: KARMEN Bentley TAKE 1 TABLET BY MOUTH TWICE A DAY Commonly known as: LOPRESSOR * tamsulosin 0.4 mg capsule Quantity: 60 capsule Refills: 5 Dose: 0.4 mg Signed by: ALONZO Barrera 0.4 mg, oral, 2 times daily Commonly known as: FLOMAX * tamsulosin 0.4 mg capsule Quantity: 90 capsule Refills: 1 Signed by: KARMEN Hendricks TAKE 1 CAPSULE BY MOUTH EVERY DAY IN THE EVENING Commonly known as: FLOMAX * This list has 2 medication(s) that are the same as other medications prescribed for you. Read the directions carefully, and ask your doctor or other care provider to review them with you. Medications Discontinued This Visit clopidogreL 75 mg tablet Commonly known as: PLAVIX Stopped by: Cornelio Birmingham MD Review of Symptoms: Review of Systems HENT: Sinus pressure and drainage. Respiratory: Positive for cough. All other systems reviewed and are negative. ECO- Symptomatic; fully ambulatory Physical Exam: General: Well appearing, in no acute distress. Vitals: BP 143/73 Pulse 82 Temp 36.4 C (97.5 F) (Oral) Resp 16 Ht 176.5 cm (5' 9.49 ) Wt 100 kg (220 lb 6.4 oz) SpO2 98% BMI 32.09 kg/m Body mass index is 32.09 kg/m . Eyes: No icterus, no conjuctival erythema ENT: Pharyngeal mucosa was moist without exudate and inflammation or ulcerations. Tongue was midline and appeared normal.Gums were unremarkable. Lymph nodes: No palpable adenopathy Neck: Supple. There were no masses, tenderness. Trachea was midline. Respiratory: Respirations were non-labored. Lungs were clear to auscultation. There was no dullness to percussion. Cardiac: Regular rate and rhythm, S1 and S2 sounds were normal. There were no rubs or gallops. Abdomen: Soft, non-tender, Nondistended. Bowel sounds audible in all four quadrants. There were no palpable masses. The liver and spleen were not enlarged. Extremities: There was no clubbing, Cyanosis, edema. Skin: There was no obvious rashes, bruising or ecchymosis. Back exam: No palpable tenderness was appreciated. Neurologic: There was no unilateral weakness. Mood and affect: Normal. Recent Imaging: CT brain without contrast Result Date: 10/25/2021 Narrative: CT BRAIN WO CONT INDICATION: Fall, head trauma. TECHNIQUE: CT of the head without intravenous contrast. Reviewed in brain, bone, and soft tissue windows. COMPARISON: None. FINDINGS: No intracranial hemorrhage. Scattered periventricular and deep cortical white matter areas of low attenuation, likely representing sequelae of chronic microangiopathy. No territorial loss of heller-white differentiation. Mild cerebral volume loss with appropriate size and morphology of the ventricular system. No extra-axial fluid collections or shift of midline structures. Patent basal cisterns. No depressed or displaced calvarial fracture. Nonaggressive mucosal thickening maxillary and sphenoid sinuses as well as frontal sinuses and ethmoid air cells. IMPRESSION: 1. No acute intracranial abnormality. 2. Senescent changes including cerebral volume loss and sequelae of chronic microangiopathy. 3. If there is sufficient clinical concern for acute ischemia or an occult abnormality, further evaluation with brain MRI is recommended. All CT scans at this facility use dose modulation, iterative reconstruction, and/or weight based dosing when appropriate to reduce radiation dose to as low as reasonably achievable. Finalized by Chris Romero MD on 10/25/2021 11:44 AM X-ray pelvis 1 or 2 views Result Date: 10/25/2021 Narrative: XR PELVIS 1 OR 2 VWS INDICATION: Status post fall COMPARISON: None FINDINGS: No acute fracture or dislocation bilateral femoral heads appear well-seated respective acetabula. Mild degenerative changes of the bilateral hips. Pubic symphysis is intact. Sacroiliac joints are symmetric. Soft tissues appear unremarkable. IMPRESSION: No acute osseous abnormality of the pelvis. Finalized by Bob Henson on 10/25/2021 12:56 PM X-ray shoulder right minimum 2 views Result Date: 10/25/2021 Narrative: History: Fall from ladder, shoulder pain Study: Right Shoulder Three view study. Comparison: Findings: No fracture, dislocation, or destructive osseous process is observed. No acute process.Acromioclavicular degenerative change Impression: No acute abnormality. Finalized by Alejandra Elizabeth MD on 10/25/2021 12:[address] cervical spine without contrast Result Date: 10/25/2021 Narrative: Clinical history:Trauma. CT cervical spine:10/25/2021 Procedure: Axial images were obtained through the cervical spine. Coronal and sagittal reconstructions were performed. All CT scans at this facility use dose modulation, iterative reconstruction, and/or weight based dosing when appropriate to reduce radiation dose to as low as reasonably achievable. Findings: There is no focal vertebral abnormality. Cervical degenerative changes are present with mild facet hypertrophic change. Loss of intervertebral disc height is prominent at C5-C6 and C6-C7. Mucoperiosteal prominence is present the right maxillary sinus and there is complete opacification and decreased volume of the left maxillary sinus. The mastoid air cells are clear. No paraspinal mass or fluid collection is evident. IMPRESSION: Cervical degenerative changes. No focal or acute osseous abnormality evident radiographically. Finalized by Veena Aguiar MD on 10/25/2021 11:[address] chest without contrast Result Date: 10/25/2021 Narrative: Clinical history:Chest trauma. CT chest without contrast:10/25/2021 Comparison: 08/06/2017, 03/23/2017 Procedure: Axial images were obtained through the chest without intravenous contrast. Coronal and sagittal reconstructions were performed. All CT scans at this facility use dose modulation, iterative reconstruction, and/or weight based dosing when appropriate to reduce radiation dose to as low as reasonably achievable. Findings: There is no acute vertebral deformity in the thoracic region. No displaced rib fracture is evident. Patient is status post sternotomy. A paraspinal mass in the right lower lobe measures 4.8 x 3.3 x 2.3 cm. This has cavitary component centrally and involves the adjacent pleura. There is centrilobular emphysematous change with no focal abnormality otherwise present in the lungs No mediastinal mass or adenopathy is evident. A right hepatic cysts, segment 8 appears stable measuring up to 6.8 cm. IMPRESSION: No posttraumatic abnormality within the thorax. Right lower lobe paraspinal mass suggestive of malignancy. Further evaluation with PET/CT or soft tissue diagnosis recommended. I HAVE REQUESTED THAT THE RADIOLOGY DEPARTMENT STAFF CONTACT THE CLINICAL SERVICE REGARDING THIS REPORT. Finalized by Veena Aguiar MD on 10/25/2021 11:[address] thoracic spine without contrast Result Date: 10/25/2021 Narrative: Clinical history: Pain after falling down a ladder. CT thoracic spine: 10/25/2021 PROCEDURE: Axial images were obtained through the thoracic spine. Coronal and sagittal reconstructions were performed. All CT scans at this facility use dose modulation, iterative reconstruction, and/or weight based dosing when appropriate to reduce radiation dose to as low as reasonably achievable. FINDINGS: There is no focal or acute thoracic vertebral deformity. There is mild accentuation of upper thoracic kyphosis and degenerative disc changes are present in the upper and mid thoracic region. There is no facet malalignment. No paraspinal mass or fluid collection is evident. Visualized ribs are intact. A cavitary right lower lobe lesion is evident. Please refer to the chest CT report. IMPRESSION: 1. No acute osseous injury within the thoracic spine 2. Right lower lobe cavitary mass. Finalized by Veena Aguiar MD on 10/25/2021 12:04 PM Recent Labs: No results found for this or any previous visit (from the past 336 hour(s)). 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 The right lower lobe paraspinal lesion has increased over time, now is up to 4.8 x 3.3 x 2.3 cm with cavitary changes. No mediastinal mass or adenopathy is evident. A right hepatic cysts, segment 8 appears stable measuring up to 6.8 cm. Recent PET scan final path from recent lobectomy reviewed. The patient's cancer is 1.5 cm, no evidence of visceral pleura involvement. NCCN guideline reviewed, I would NOT recommended adjuvant chemotherapy. Lepidic adenocarcinoma usually has better prognosis. Patient's PET scan October 2022 is unremarkable no signs of recurrence. Repeat CT scan 11/2023 reviewed today, continue to have granulomatous changes emphysema no signs of recurrence. Right pleural effusion is decreasing. Plan to obtain another CT scan of the chest in [address] scan every 6 months for the 1st 3 years. Follow-up with me after the imaging test. Cornelio Birmingham MD Please note that portions of this note were generated using voice recognition M*Modal dictation software. Although every effort was made to ensure the accuracy of this automated facility rehab director, some errors in facility rehab director may have occurred. CC: Patient Care Team: Shaikh Lexi MD as PCP - General (Internal Medicine) Romi Novak MD as Referring Physician (Infectious Diseases) Cornelio Birmingham MD as Consulting Physician (Oncology) Domingo Collado DO as Consulting Physician (Radiation Oncology) Reji Romero MD as Consulting Physician (Urology) Walt Jackson DO as Referring Physician (Cardiology) PCP:SHAIKH LEXI Referring MD: Shaikh Elliott MD documented in this encounter [facility] 01-04-2024 Instructions Cornelio Birmingham MD - 01/04/2024 8:[address] chest/a/p w contrast 06/2024 F/u 07/2024, CBC, CMP. documented in this encounter [facility] 11-30-2023 History of Presen t illness Narrative Images from the original note were not included. [id number] [facility] [id number] Patient: Zaid Mello Date of : 1960 [...] Chest pain COPD (chronic obstructive pulmonary disease) ([facility]) COPD, moderate ([facility]) 04/09/2017 Emphysema of lung ([facility]) Hyperlipemia Hypertension Injury of back Lung cancer ([facility]) right lower lobe thoracotomy 11/2022 Myocardial infarction ([facility]) Right lower lobe pulmonary nodule Seizures ([facility]) had from ages [age], none since age 27 Shortness of breath Visual impairment Past Surgical History: Procedure Laterality Date BRONCHOSCOPY WITH FLUORO N/A 05/24/2017 Performed by Maritza Jang DO at [facility] CARD[facility]AC CATHETER[facility]ATION 03/2022 stent placed CORONARY ARTERY BYPASS GRAFT 01/16/2006 Triple DAVINCI THORACOTOMY ( RIGHT LOWER LOBE WEDGE RESECTION) , RIGHT LOBECTOMY,MEDIASTINAL LYMPH NODE DISECTION LYSIS OF PLEURAL ADHESIONS N/A 11/29/2022 Performed by Walt Barragan MD at [facility] LASER CYSTOSCOPY LITHOLAPAXY N/A 11/05/2023 Performed by Reji Romero MD at [facility] LIPOMA RESECTION PHACO KELMAN I IMPLANT INTRAOCULAR LENS Right 02/28/2018 Performed by Lashay Bui MD at [facility] PHACO KELMAN I IMPLANT INTRAOCULAR LENS Left 12/27/2017 Performed by Lashay Bui MD at [facility] SKIN BIOPSY excision of lypoma Family History [...] Hendricks 11/30/23 1350 documented in this encounter [facility] 11-28-2023 Evaluation + Plan note Associated Problem(s): Benign prostatic hyperplasia with lower urinary tract symptoms He has a follow-up with Dr. Romero in a few weeks. [facility] 11-28-2023 Miscellaneous Notes Associated Problem(s): Benign prostatic hyperplasia with lower urinary tract symptoms He has a follow-up with Dr. Romero in a few weeks. documented in this encounter [facility] 11-28-2023 History of Presen t illness Narrative Images from the original note were not included. [address] [place] [address] [address] [facility] [id number] Patient: Zaid Mello Date of : 1960 [...] Chest pain COPD (chronic obstructive pulmonary disease) ([facility]) COPD, moderate ([facility]) 04/09/2017 Emphysema of lung ([facility]) Hyperlipemia Hypertension Injury of back Lung cancer ([facility]) right lower lobe thoracotomy 11/2022 Myocardial infarction ([facility]) Right lower lobe pulmonary nodule Seizures ([facility]) had from ages [age], none since age 27 Shortness of breath Visual impairment Past Surgical History: Procedure Laterality Date BRONCHOSCOPY WITH FLUORO N/A 05/24/2017 Performed by Maritza Jang DO at [facility]ARD[facility] CATHETER[facility] 03/2022 stent placed CORONARY ARTERY BYPASS GRAFT 01/16/2006 Triple DAVINCI THORACOTOMY ( RIGHT LOWER LOBE WEDGE RESECTION) , RIGHT LOBECTOMY,MEDIASTINAL LYMPH NODE DISECTION LYSIS OF PLEURAL ADHESIONS N/A 11/29/2022 Performed by Walt Barragan MD at [facility] LASER CYSTOSCOPY LITHOLAPAXY N/A 11/05/2023 Performed by Reji Romero MD at [facility] LIPOMA RESECTION PHACO KELMAN I IMPLANT INTRAOCULAR LENS Right 02/28/2018 Performed by Lashay Bui MD at [facility] PHACO KELMAN I IMPLANT INTRAOCULAR LENS Left 12/27/2017 Performed by Lashay Bui MD at [facility] SKIN BIOPSY excision of lypoma Family History [...] you for your understanding. ALONZO Johnson 11/28/23 [id number] After Patient had his appointment with Marcie [...] and follow up. documented in this encounter [facility] 11-21-2023 Miscellaneous Notes Patient called in stating he is still urinating blood clots as well as having blood in his urine. 'Patient would like to know if this was normal weeks after the procedure documented in this encounter [facility] 11-21-2023 Telephone encounter Note Patient called in stating he is still urinating blood clots as well as having blood in his urine. 'Patient would like to know if this was normal weeks after the procedure [facility] 11-05-2023 Miscellaneous Notes Have patient return the office in [place] about 4 weeks documented in this encounter [facility] 11-05-2023 Telephone encounter Note Have patient return the office in [place] about 4 weeks [facility] 10-24-2023 Instructions Alejandrina Mendoza RN - 10/24/2023 10:30 AM EST Preoperative Education Checklist- General Surgery date: 11/05/23 Surgery time: 8a Arrival time: 610a 1. Bring a photo ID and your insurance card with you the day of surgery. You will check in at the main lobby of the [facility]- registration desk is straight ahead as soon as you walk in. Tell them you are here for surgery. 2. If you have a Living Will/Durable Power of Safety Lamp Keeper for Health Care that is not on [...] after you have bathed. 5. NO nail salvadorean/acrylic on at least one finger. If you are having a hand, wrist or foot surgery then all nail salvadorean and artificial/acrylic nails must be removed from [...] please call the Preadmission Testing office at [phone], Mon.-Fri. 7 a.m.-3 p.m. 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 [facility] [facility] Progress note Author Jaswinder Flores [facility] July 28, 2022 10:37am Note Date/Time July 28, 2022 10:34am [facility] [address] [place] [address] Hospitalist Progress Note Signed Patient: Zaid Mello MR#: [id number] : 1960 Acct:[id number] Age/Sex: 61 / M Adm Date: 2 Loc: Room: [address] [place] [address] Type: ADM INOo Attending Dr: Jaswinder Flores [...] Insuln.Pen SUBCUT 07/27/23 11:59 Not Given TID.WM.[facility] Protocol Isosorbide Mononitrate 30 mg 07/27/22 09:00 [...] <Electronically signed by Jaswinder Flores MD> 07/28/22 1037 [facility] Work Phone: 1(935) 658-298009-29-2022 Consult note Author Jermaine Jackson [facility] July 27, 2022 5:13pm Note Date/Time July 27, 2022 5:03pm [facility] [address] [place] [address] Cardiology Consult Note Signed Patient: Zaid Mello MR#: [id number] : 1960 Acct:[id number] Age/Sex: 61 / M Adm Date: 2 Loc: 3T Room: [address] [place] [address] Type: ADM INOo Attending Dr: Jaswinder Flores MD Copies to: Consuelo Flores MD W Catracho Jackson, DO~ Cardiology HPI History of Present Illness Consult Date: 07/27/22 Reason for Consult: Non-ST elevation PR HPI: Mr. Mello is a 61 year old male seen in interventional cardiology consultationat request of the hospitalist after patient is transferred from [facility] withnew onset chest discomfort syndrome initial [...] mild obesity, hyperlipidemia Impression/recommendations: Acute non-ST elevation PR, concern for subacute stent thrombosis due to [...] x10E3/uL Lymph # (Auto) 1.3 (1.00-4.8) x10E3/uL Benzie # (Auto) 0.6 (0.0-0.8) x10E3/uL Eos # [...] myocardial infarction Documented By: Jermaine Jackson DO 07/27/22 1701 Signed By: <Electronically signed by Jermaine Jackson DO> 07/27/22 1713 [facility] Work Phone: 1(214) 432-917809-29-2022 Progress note Author Jaswinder Flores [facility] July 27, 2022 11:27am Note Date/Time July 27, 2022 11:21am [facility] [address] [place] [address] Hospitalist Progress Note Signed Patient: Zaid Mello MR#: [id number] : 1960 Acct:[id number] Age/Sex: 61 / M Adm Date: 2 Loc: Room: [address] [place] [address] Type: ADM INOo Attending Dr: Jaswinder Flores [...] Dose Route Start Last Admin Trade Name Hosseinq PRN Reason Stop Dose Admin Acetaminophen 650 mg 07/26/22 16:59 Acetaminophen 325 Mg Tablet PO 07/26/23 16:58 Q6HR PRN Pain Scale 1 - 3 or fever Aspirin 81 mg 07/27/22 09:00 07/27/22 09:09 Aspirin 81 Mg Tablet.Dr PO 07/27/23 08:59 81 mg DAILY LIZZ [...] <Electronically signed by Jaswinder Flores MD> 07/27/22 1127 [facility] Work Phone: 1(766) 322-554909-28-2022 History and physical note Author Jaswinder Flores [facility] July 26, 2022 5:18pm Note Date/Time July 26, 2022 5:10pm [facility] [address] [place] [address] Hospitalist H&P Signed Patient: Zaid Mello MR#: [id number] : 1960 Acct:[id number] Age/Sex: 61 / M Adm Date: 2 Loc: Room: [address] [place] [address] Type: ADM IN Attending Dr: Jaswinder Flores MD Copies to: Consuelo Flores MD~ HPI DATE OF EXAMINATION: 07/26/22 CHIEF COMPLAINT: chest pain HISTORY OF PRESENT ILLNESS: Patient is a 61 year old male with past medical history of CABG x3, CAD s/p PCI in 04/27/21 stenting SVG to RCA, Hx of COPD presented to [facility] for chest pain. Patient reported that he [...] decided to go to the ER. At [facility], initial EKG showed Qwaves in leads III and T wave inversions in inferior leads according to reports from [facility]. Initial troponin was 40, and the second one was in 500s. They contacted our assisted living care manager Dr. Jackson who accepted to be home energy consultant on the case. Patient was started on full dose Lovenox at [facility]. Patient [facility]transfer[facility] for further evaluation and management and [...] patch was applied on his chest from [facility]. States compliance with DAPT ASA and Brilinta [...] signed by Jaswinder Flores MD> 07/26/22 1718 [facility] Work Phone: 1(165) 337-344607-15-2022 Discharge summary Author Jermaine Jackson [facility] May 12, 2022 9:55am Note Date/Time May 12, 2022 9:52 am [facility] [address] [place] [address] Discharge Summary Signed Patient: Zaid Mello MR#: [id number] : 1960 Acct:[id number] Age/Sex: 61 / M Adm Date: 2 [...] Low-Cholesterol Additional Instructions: DISCHARGE INSTRUCTIONS FOR CARDIAC LAND MANAGEMENT SUPERVISOR PHONE NUMBER OF YOUR PHYSICIAN: [phone] PROCEDURE: Heart Cath The following instructions have [...] cold, numb, blue or white, call the assisted living care manager immediately. 4. ACTIVITY: You are advised to [...] bottle, follow the instructions on the bottle. [facility] is not responsible for incorrect prescription [...] signed by Jermaine Jackson DO> 05/12/22 0955 [facility] Work Phone: [phone]) 842-751407-15-[address] [facility] Evaluation note* Encounter Date Diagnosis Assessment [...] Fungal infection of lung (ICD-10 - B49) [employer] Other 02-02-2022 Evaluation note* Encounter Date Diagnosis Assessment Notes Treatment Notes Treatment Clinical Notes Nov, Lung mass (ICD-10 - R91.8) Please give patient an excuse for work starting this past Sunday till this coming Nov, Chronic obstructive pulmonary disease, unspecified COPD type (ICD-10 - J44.9) [employer] Other 01-18-2022 Evaluation note* Encounter Date Diagnosis Assessment Notes Treatment Notes Treatment Clinical Notes Oct, Lung mass (ICD-10 - R91.8) PET scan to be done here, please confirm with patient. Also refer for CT-guided biopsy of right lower lobe mass Oct, Chronic obstructive pulmonary disease, unspecified COPD type (ICD-10 - J44.9) Oct, Dyspnea on exertion (ICD-10 - R06.00) Oct, Coronary artery disease involving [place] heart without angina pectoris, unspecified vessel or lesion type (ICD-10 - I25.10) [employer] Other 03-01-2015 History general Narrative - Reported* Type Description Date Medical History CAD Medical History hyperlipidemia Medical History COPD Surgical History CABG 12/2014 Hospitalization History as above [employer] Other 03-01-2015 History general Narrative - Reported* Type Description Date Medical History CAD Medical History hyperlipidemia Medical History COPD Medical History lung cancer Surgical History CABG 12/2014 Surgical History lung resection RLL 11/2022 Surgical History Teeth extraction 10/2022 Hospitalization History as above Hospitalization History [facility] 11/2022 [employer] Other Discharge summary Author Jaswinder Flores [facility] July 28, 2022 5:31pm Note Date/Time July 28, 2022 5:31pm [facility] [address] [place] [address] Discharge Summary Signed Patient: Zaid Mello MR#: [id number] : 1960 Acct:[id number] Age/Sex: 61 / M Adm Date: 2 Loc: Room: [address] [place] [address]: Jaswinder Flores MD Copies to: [...] to RCA, Hx of COPD presented to [facility] for chest pain.? Patient reported that he started having chest pain while he was walking, he states that there was substernal chest pain radiating to his left arm with numbness all the way down his left upper extremity, it has relieved with rest. Patient decided to go to ER for further evaluation.? At [facility], initial EKG showed Q waves in leads III and T wave inversions in inferior leads according to reports from [facility].? Initial troponin was 40, andthe second one was in 500s.? They contacted our assisted living care manager Dr. Jackson who accepted to be home energy consultant on the case.? Patient was started on full dose Lovenoxat [facility]. Patient was transferred to our [facility] for further evaluation and management and possible cardiac cath. During hospital stay, troponin levels down trended however there was a concern for subacute stent thrombosis due to recent antiplatelet therapy withdrawal for teeth extraction.? SHASHI risk score is 5-7 consistent with high risk for which assisted living care manager proceeded with cardiac cath on 07/27 which [...] Procedures p CL Coronary Angio w/grafts - Jermaine Jackson DO p CL Ivus Initial Vessel - Jermaine Jackson DO Diagnostic Studies Completed and Pending [...] % (Auto) 58.5, Lymph % (Auto) 24.6, Benzie % (Auto) 11.1, Eos % (Auto) 5.3, Baso % (Auto) 0.5, Neut # (Auto) 3.3, Lymph # (Auto) 1.4, Benzie # (Auto) 0.6, Eos# (Auto) 0.3, Baso [...] Low-Cholesterol Additional Instructions: DISCHARGE INSTRUCTIONS FOR CARDIAC LAND MANAGEMENT SUPERVISOR PHONE NUMBER OF YOUR PHYSICIAN: [phone] PROCEDURE: Heart Cath The following instructions have [...] cold, numb, blue or white, call the assisted living care manager immediately. 4. ACTIVITY: You are advised to [...] bottle, follow the instructions on the bottle. [facility] is not responsible for incorrect prescription [...] signed by Jaswinder Flores MD> 07/28/22 1731 [facility] Work Phone: Evaluation noteNo assessment information available [facility] Work Phone: Evaluation noteNo InformationNort [email or web address] Other Evaluation note* Diagnosis Onset Date Resolution Status Angina pectoris acute Chest pain acute COPD (chronic obstructive pulmonary disease) acute History of coronary artery bypass graft x [address] elevation myocardial infarction (STEMI) acute Non-ST elevation myocardial infarction (NSTEMI), initial care episode acute Stable angina acute [facility] Work Phone: Evaluation note* Diagnosis Bladder stones- Primary Other calculus in bladder Benign prostatic hyperplasia with lower urinary tract symptoms Preop examination- Primary Unspecified pre-operative examination Hypertension, unspecified type Coronary artery disease, unspecified vessel or lesion type, unspecified whether angina present, unspecified whether [place] or transplanted heart Chronic obstructive pulmonary disease, unspecified COPD type (CMS-HCC) Preop examination Unspecified pre-operative examination Hypertension, unspecified type Coronary artery disease, unspecified vessel or lesion type, unspecified whether angina present, unspecified whether [place] or transplanted heart Chronic obstructive pulmonary disease, unspecified COPD type (CMS-HCC) Preop examination Unspecified pre-operative examination Hypertension, unspecified type Coronary artery disease, unspecified vessel or lesion type, unspecified whether angina present, unspecified whether [place] or transplanted heart Chronic obstructive pulmonary disease, unspecified COPD type (CMS-HCC) Bladder stones Other calculus in bladder Benign prostatic hyperplasia with lower urinary tract symptoms, symptom details unspecified documented in this encounter [facility]* Diagnosis Bladder stones- Primary Other calculus in bladder Benign prostatic hyperplasia with lower urinary tract symptoms, symptom details unspecified documented in this encounter [facility]* Diagnosis Urinary retention- Primary Unspecified retention of urine Gross hematuria documented in this encounter [facility]* Diagnosis Bladder outlet obstruction- Primary 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 (CMS-HCC)- Primary Bladder outlet obstruction documented in this encounter [facility]* Diagnosis Bladder outlet obstruction- Primary 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 (CMS-HCC)- Primary Bladder outlet obstruction [facility] Additional Instructions DISCHARGE INSTRUCTIONS FOR CARDIAC LAND MANAGEMENT SUPERVISOR PHONE NUMBER OF YOUR PHYSICIAN: [phone] PROCEDURE: Heart Cath The following instructions have [...] cold, numb, blue or white, call the assisted living care manager immediately. 4. ACTIVITY: You are advised to [...] bottle, follow the instructions on the bottle. [facility] is not responsible for incorrect prescription information provided by the patient during their visit. Do not stop your medications without consulting your health care provider. Please take the list with you to your next doctor's appointment. Follow up with PCP regarding diabetes your HbA1C was 6.9. [facility] Work Phone: InstructionsNot on filedocumented in this encounter [facility] [employer] SystemInstructionsNot on filedocumented in this encounter [facility] [employer] SystemInstructionsNot on filedocumented in this encounter [facility] SystemInstructionsNot on filedocumented in this encounter [facility] SystemInstructionsNot on filedocumented in this encounter [facility] SystemReason for referral (narrative)* Reason RLL mass Diagnosis 1 Lung mass (R91.8) Referral Organization [facility] Referring Provider First Name Paulinojuan diego Referring Provider Last Name Anabellирина Referring Provider Specialty Pulmonary D iseases Referred Organization [facility] Referred Address [address] [place], [place],[address] Referred Provider Specialty Intervention al Radiology Referral Priority Routine General Notes Ivonne Santos 01:14:58 PM > follow CT guided biopsy in [facility] [employer] Other Family History No Family History Records [...] has had previous CABG with subsequent inferior PR in March 2021 with primary revascularization of [...] Patient had remote CABG, recent non-ST elevation PR due to closure of negative right coronary however this was inconsequential because his [place] right coronary is already bypassed therefore he [...] Referral Specialty Diagnoses / Procedures Referred By Gabino harrgove Referred To Contact Radiology Diagnoses 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 (CMS-HCC) Procedures CT abdomen and pelvis with contrast Cornelio Birmingham MD [address] [place] [address] Referral ID Status Reason Start Date Expiration Date V isits Requested Visits Authorized [id number] Pending Review 01/04/2024 01/03/2025 1 1 Specialty Diagnoses / Procedures Referred By Contac t Referred To Contact Radiology Diagnoses 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 (CMS-HCC) Procedures CT chest with contrast Cornelio Birmingham MD [address] [place] [id number] Referral ID Status Reason Start Date Expiration Date V isits Requested Visits Authorized [id number] Pending Review 01/04/2024 01/03/2025 1 1 Specialty Diagnoses / Procedures Referred By Contac t Referred To Contact Diagnoses Bladder stones Procedures Measure post void residual Marcie Green PA [address] [place] [id number] Referral ID Status Reason Start Date Expiration Date V isits Requested Visits Authorized [id number] Pending Review 11/28/2023 11/27/2024 1 1 Specialty Diagnoses / Procedures Referred By Contac t Referred To Contact Diagnoses Preop examination Hypertension, unspecified type Coronary artery disease, unspecified vessel or lesion type, unspecified whether angina present, unspecified whether [place] or transplanted heart Chronic obstructive pulmonary disease, unspecified COPD type ([facility]-HCC) Procedures ECG 12 lead Isaías Vance MD [address] [place] [address] Referral ID Status Reason Start Date Expiration Date V isits Requested Visits Authorized [id number] Pending Review 10/18/2023 10/17/2024 1 1 Additional [...] Villasenor MD Primary Care Provider Active Jaswinder Florse MD Admit Provider, Attending Provi kerwin Active [...] Primary Care Provider, Attending Pr ovider Active General Internal Medicine Doctor Relationship Specialty Start Date End Date Shaikh Elliott MD [address] [place] [address] PCP - General Internal Medicine 10/31/22 General Internal Medicine Doctor Relationship Specialty Start Date End Date Shaikh Elliott MD [address] [place] [address] PCP - General Internal Medicine 10/31/22 General Internal Medicine Doctor Relationship Specialty Start Date End Date Shaikh Elliott MD [address] [place] [address] PCP - General Internal Medicine 10/31/22 General Internal Medicine Doctor Relationship Specialty Start Date End Date Shaikh Elliott MD [address] [place] [address] PCP - General Internal Medicine 10/31/22 General Internal Medicine Doctor Relationship Specialty Start Date End Date Shaikh Elliott MD [address] [place] [address] PCP - General Internal Medicine 10/31/22 General Internal Medicine Doctor Relationship Specialty Start Date End Date Shaikh Elliott MD [address] [place] [address] PCP - General Internal Medicine 10/31/22 General Internal Medicine Doctor Relationship Specialty Start Date End Date Shaikh Elliott MD [address] [place] [address] PCP - General Internal Medicine 10/31/22 General Internal Medicine Doctor Relationship Specialty Start Date End Date Shaikh Elliott MD [address] [place] [address] PCP - General Internal Medicine 10/31/22 General Internal Medicine Doctor Relationship Specialty Start Date End Date Shaikh Elliott MD [address] [place] [address] PCP - General Internal Medicine 10/31/22 Goals [...] section and content) DATE CREATED AUTHOR 04/06/2022 [facility] DATE CREATED AUTHOR AUTHOR'S ORGANIZ ATION 07/31/2022 [facility] DATE CREATED AUTHOR AUTHOR'S ORGANIZ ATION 10/04/2022 [facility] DATE CREATED AUTHOR AUTHOR'S ORGANIZ ATION 10/05/2022 [employer] DATE CREATED AUTHOR AUTHOR'S ORGANIZ ATION 08/09/2023 [facility] DATE CREATED AUTHOR AUTHOR'S ORGANIZ ATION 09/06/2023 [facility] DATE CREATED AUTHOR AUTHOR'S ORGANIZ ATION 11/23/2023 [facility] DATE CREATED AUTHOR AUTHOR'S ORGANIZ ATION 12/02/[address] [facility] DATE CREATED AUTHOR AUTHOR'S ORGANIZ ATION 03/20/2024 [facility] DATE CREATED AUTHOR AUTHOR'S ORGANIZ ATION 04/18/2024 [facility] DATE CREATED AUTHOR AUTHOR'S ORGANIZ ATION 06/07/2024 [facility] DATE CREATED AUTHOR AUTHOR'S ORGANIZ ATION 06/08/2024 [facility] EPIC REASON FOR VISIT (unrecogniz ed section and [...] BE BASED ON THE PRIMARY CLINICAL RECORDS. [employer] provides no warranty or guarantee of the accuracy or completeness of information in this document.
[2024-07-15 10:12] LABS: Estimated GFR (African America >60 (>=60); Estimated GFR (Non-African Ame >60 (>=60)
== END 2024-07-14 10:58 | disposition home or self-care (01) ==
LOC: LAB 10:58
PROVIDERS: PCP Psychiatry & Neurology Neurology; Visit Provider Psychiatry & Neurology Neurology
DX: M51.36 Other intervertebral disc degeneration, lumbar region (principal); R93.7 Abnormal findings on diagnostic imaging of other parts of musculoskeletal system; M43.06 Spondylolysis, lumbar region
CPT/HCPCS: 36415; 82565

== ENCOUNTER 2024-10-06 12:51 | Outpatient (OUT) | payer BC, SELFPAY ==
--- NOTE | 2024-10-06 15:46 | PM.CN ---
Consult Note: HPI Data of Consult Patient: known to practice within the last 3 years Consult date: 10/06/24 Requesting Physician: Mariah Whiting MD Primary Care Provider: Edin Mckeon DO Consult Narrative Reason for consult: low back, lower extremity pain Narrative: 63yom who presents for assessment. longstanding low back, bilateral lower extremity pain. recent mri reviewed, significant for multilevel moderate to severe stenosis. recently evaluated by spinal surgeon, who said he was not a surgical candidate. has continued in a series of provider directed home exercises >6 weeks, without significant benefit. uses otc meds as needed. denies adverse med side effects. cc:: CC: Mariah Whiting MD Review of Systems ROS Status of ROS 10 or more systems reviewed and unremarkable except as noted in history and below [facility] Medical History (Updated 02/14/24 @ 10:25 by Christelle Linn NP) Deep vein thrombosis ?I82.409 - Acute embolism and thrombosis of unspecified deep veins of unspecified lower extremity (ICD-10) Sleep disorder ?G47.9 - Sleep disorder, unspecified (ICD-10) Insomnia ?G47.00 - Insomnia, unspecified (ICD-10) Chronic obstructive pulmonary disease ?J44.9 - Chronic obstructive pulmonary disease, unspecified (ICD-10) Seizures ?R56.9 - Unspecified convulsions (ICD-10) BPH (benign prostatic hyperplasia) ?N40.0 - Benign prostatic hyperplasia without lower urinary tract symptoms (ICD-10) Bladder stone ?N21.0 - Calculus in bladder (ICD-10) Shortness of breath ?R06.02 - Shortness of breath (ICD-10) Dyspnea on exertion ?R06.09 - Other forms of dyspnea (ICD-10) Myocardial infarction ?I21.9 - Acute myocardial infarction, unspecified (ICD-10) Myocardial infarction ?I21.9 - Acute myocardial infarction, unspecified (ICD-10) Extremity edema ?R60.0 - Localized edema (ICD-10) Coronary artery disease ?I25.10 - Atherosclerotic heart disease of [place] coronary artery without angina pectoris (ICD-10) Lung cancer ?C34.90 - Malignant neoplasm of unspecified part of unspecified bronchus or lung (ICD-10) Lumbar spondylolysis ?M43.06 - Spondylolysis, lumbar region (ICD-10) Hyperlipidemia ?E78.5 - Hyperlipidemia, unspecified (ICD-10) High cholesterol ?E78.00 - Pure hypercholesterolemia, unspecified (ICD-10) Heart attack ?I21.9 - Acute myocardial infarction, unspecified (ICD-10) Low back pain ?M54.50 - Low back pain, unspecified (ICD-10) Chest pain ?R07.9 - Chest pain, unspecified (ICD-10) CAD (coronary artery disease) ?I25.10 - Atherosclerotic heart disease of [place] coronary artery without angina pectoris (ICD-10) History of BPH ?Z87.438 - Personal history of other diseases of male genital organs (ICD-10) Surgical History History of cardiac catheterization ?Z98.890 - Other specified postprocedural states (ICD-10) H/O tooth extraction ?K08.409 - Partial loss of teeth, unspecified cause, unspecified class (ICD-10) H/O cystoscopy ?Z98.890 - Other specified postprocedural states (ICD-10) History of lung biopsy ?Z98.890 - Other specified postprocedural states (ICD-10) H/O eye surgery ?Z98.890 - Other specified postprocedural states (ICD-10) History of heart artery stent ?Z95.5 - Presence of coronary angioplasty implant and graft (ICD-10) S/P lobectomy of lung ?Z90.2 - Acquired absence of lung [part of] (ICD-10) S/P triple vessel bypass ?Z95.1 - Presence of aortocoronary bypass graft (ICD-10) Family History Other Family history of cancer Heart disease Social History Within the past year, how often did you have a drink containing alcohol: never Score interpretation: A score less than 4 is consistent with normal alcohol consumption. 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 Highest level of school completed/degree received: some college, no degree Meds Home Medications and Allergies Home Medications ?Medication ?Instructions ?Recorded ?Confirmed ?Type aspirin 81 mg capsule 81 mg PO DAILY 05/28/23 02/19/24 History atorvastatin 80 mg tablet 80 mg PO DAILY 05/28/23 02/19/24 History isosorbide mononitrate 60 mg 60 mg PO DAILY 05/28/23 02/19/24 History tablet,extended release 24 hr metoprolol tartrate 25 mg tablet 25 mg PO BID 05/28/23 02/19/24 History tamsulosin 0.4 mg capsule 0.4 mg PO BID 05/28/23 02/19/24 History Allergies Allergy/AdvReac Type Severity Reaction Status Date / Time No Known Drug Allergies Allergy Verified 02/14/24 10:12 Exam Narrative Exam Narrative: Psych-alert and oriented x 3. Attentive and appropriate, constitutionally normal, displays normal mood and affect per situation. There are no obvious deficits in memory, reasoning, or intellect.? Skin-no obvious rashes, bruising, erythema noted to the patient's area of pain.? Extremities- extremities are warm with minimal edema and palpable pulses. Lumbar-tenderness to palpation noted in the lumbar spine and paraspinal musculature. Pain is elicited with flexion, extension, and lateral rotation of the lumbar spine. Range of motion is diminished with these motions. Facet loading maneuvers are positive.? Strength-noted to be unremarkable with the exception of decreased strength rated at 4 out of 5 in bilateral quadriceps femoris, anterior tibialis. Sensory-no notable sensory deficits in the bilateral lower extremities to touch or pinprick in all dermatomal distributions with the exception to decreased sensation to the bilateral L3, 4, 5 dermatomal distribution Coordination remains intact.? Gait remains non-antalgic. Assessment and Plan Assessment and Plan (1) Lumbar stenosis with neurogenic claudication: (2) Lumbar radiculopathy: (3) Lumbar spondylosis: Plan 63yom who presents for assessment. failed conservative measures, as noted. imaging reviewed, as noted. given symptoms and imaging, discussed that may benefit from caudal epidural steroid injection under fluoroscopic guidance. discussed that may even benefit from spinal cord stim. info was provided. meds reviewed, no changes. follow up as needed.
== END 2024-10-06 12:52 | disposition home or self-care (01) ==
LOC: PM 12:52
PROVIDERS: PCP Psychiatry & Neurology Neurology; Visit Provider Anesthesiology
DX: M48.062 Spinal stenosis, lumbar region with neurogenic claudication (principal); M54.16 Radiculopathy, lumbar region; M47.816 Spondylosis without myelopathy or radiculopathy, lumbar region
CPT/HCPCS: G0463

== ENCOUNTER 2025-10-05 09:16 | Outpatient (OUT) | payer MEDICARE, SELFPAY ==
--- OUTSIDE RECORDS SUMMARY | 2025-09-28 09:17 | XMS_ITS | Continuity of Care Document ---
Author Organization [facility] Address [address] [place] [address] Phone Care Team Providers Care Library Helper Name Role Phone Erlinda Dhillon DO Primary Care Provider Erlinda Dhillon DO Attending Provider [phone] Care Teams Patient Care Team Team Status: Active Member Role/Relationship Status Dates Erlinda Dhillon DO Primary Care Provider Active Patient Care Team Team Status: Inactive Member Role/Relationship Status Dates Erlinda Dhillon DO Primary Care Provider Active S tart: September 28, 2025 End: September 28, 2025Erlinda Dhillon DOAttending ProviderActiveStart: September 28, 2025 End: September 28, 2025 Chief Complaint and Reason for Visit Chief Complaint Admit Date Ill All Weekend September 28, 2025 1 :29pm Reason for Visit Admit Date 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, 2025 1:29pm Chronic pain September 28, 2025 1 :29pm Coronary artery disease invo lving [place] heart without angina pectoris September 28, 2025 1:29pm Diastolic dysfunction September 28, 2025 1:29pm Spondylosis of lumbar region without myelopathy or radiculopathy September 28, 2025 1:29pm Allergies, Adverse Reactions, Alerts Allergen Type Severity Reaction Last Updated Verified Status No Known Allergies Allergy Unknown September 28, 2025 1:37pmYesActive Social History Smoking Status Status Start Date End Date Date of Observa tion Ex-smoker (finding) September 28, 2025 1:36pm Observation Status Observation Response Date of Response Legal Sex Male (finding) Sex Assigned At BirthMaleDecember 1959 Family History Relationship Condition Age at Onset Recorded Date/T elsie mother Hypertension Unknown brotherCoronary artery diseaseUnknownMalignant neoplasmUnknownsisterMalignant neoplasmUnknownCerebrovascular accident (CVA)UnknownCoronary artery disease UnknownfatherHeart diseaseUnknownDiabetes mellitusUnknown Problems Active Problems Problem Diagnosis/Recorded Date Onset Date Status C omments Spondylosis of lumbar region without myelopathy or radiculopathy September 16, 2024 11:59am Unknown Active Atypical mycobacterial diseaseJuly 2023 7:30pmUnknownActiveChronic pain September 16, 2024 11:59amUnknownActiveDiastolic dysfunctionOctober 2023 8:11amUnknownActiveRhinitisOctober 2023 8:15amUnknownActiveCoronary artery disease involving [place] heart without angina pectorisJuly 2023 1:45pm UnknownActiveMild chronic obstructive pulmonary diseaseJuly 2023 1:45pm UnknownActiveInactive/Resolved Problems Problem Diagnosis/Recorded Date Onset Date Status C omments History of coronary artery bypass graft x 3 April 27, 2021 9:10am Unknown Resolved Problem L ist clean-up per request of Phys. EHR Cmte History of ST elevation myocardial infarction (STEMI) July 26, 2022 4:12pm Unknown Resolved Problem List clean-up per request of Phys. EHR Cmte ST elevation myocardial infarction (STEMI) of inferolateral wall April 27, 2021 9:10am Unknown Resolved Proble m List clean-up per request of Phys. EHR Cmte Non-ST elevation myocardial infarction (NSTEMI), initial care episode July 27, 2022 4:13pm Unknown Resolved Problem List clean-up per request of Phys. EHR Cmte COPD (chronic obstructive pulmonary disease) April 27, 2021 10:25am Unknown Resolved diagnose d 3 years ago, no home oxygen Stable angina July 26, 2022 4:16pm Unknown Resolved Problem List clean-up per request of Phys. EHR Cmte Angina pectoris May 12, 2022 8:50am Unknown Resolved Problem List clean-up per request of Phys. EHR Cmte Chest pain July 26, 2022 4:12pm Unknown Resolved Problem List clean-up per request of Phys. EHR Cmte Medications Medication Status Dose Units Route Directions Qty Days Refills S tart Date Stop Date End Date Reason(s) Instructions Adherence Pantoprazole 40 mg tablet,delayed release (DR/EC) Discontinued 4 0 MG PO Daily 90 1D2023 12:00amDece2024 2:11pmAmoxicillin 500 mg capsule Sgsmxmlhdhag686YMYWW5XRjsq 2021 11:00pmJuly 2021 7:13amIsosorbide Mononitrate 30 mg tablet extended release 24 iwRgifckfpxbfi03LTATEsekb794Srww 2021 11:00pmSeptember 2021 4:24pmIsosorbide Mononitrate 60 mg tablet extended release 24 edMvobgq79JEWHKbwkj252Xryixdjgw 2021 11:00pmComplies with drug therapyAcetaminophen (Tylenol) 325 mg ubidqiTwbeem224MDIMSjmpw 6 hours October 14, 2024 12:00amComplies with drug therapyAspirin 81 mg Tablet,Delayed Release (Dr/Ec)Wzngkp29EKDCBzehaPsot 2020 11:00pmComplies with drug therapyAtorvastatin (Lipitor) 40 mg GransjCyyzijveegtx88JWPGTuuvzYlno 2020 11:00pmJuly 2020 12:47pmTamsulosin (Flomax) 0.4 mg Capsule Discontinued0.4MGPODailyJune 2020 11:00pmAugust 07, 2024 7:31am Metoprolol Tartrate 25 mg DbwxslAisdyxwjocms63UIOFEfsth dailyJune 2020 11:00pmDeceer 2024 1:40pmAtorvastatin 80 mg ZtckhcPuzuod15UBNDDvges oxrxgwb083772Mfjl 1st, 2021 11:00pmComplies with drug therapyTicagrelor (Brilinta) 90 mg OpeagwKbwnwbqypsxq15AGOINxddz bcjqp857816Lxpi 2020 11:00pm August 07, 2024 7:31amNitroglycerin (Nitrostat) 0.4 mg tablet, sublingual Active0.6BWOZFTKEBTURW9L as needed for chest kvsb93733Dtvv 2020 11:00pmdo not exceed 3 doses per episodeComplies with drug therapyTamsulosin (Flomax) 0.4 mg capsuleActive0.4MGPOTwice dailyOctober 2023 7:30amComplies with drug therapyPantoprazole 40 mg tablet,delayed release (DR/EC)DiscontinuedMGPOOctknox county hospital 2023 11:00pmDecember 2023 1:08pmFluticasone Propionate (Flonase Allergy Relief) 50 mcg/actuation spray,afduuhhultAbyyei4UARIJQWSMRRQKRYAimtj1554 3Octknox county hospital 2023 11:00pmadminister into each nostrilComplies with drug therapy Umeclidinium-Vilanterol (Anoro Ellipta) 62.5-25 mcg/actuation blister with tckgnyQvhsqndivvis6VWUSBABNMNVNQPsxqb118527Ajvqkpy 2023 11:00pmDecember 2024 1:38pmTizanidine 4 mg ibifgpaFnlien7QBAVColql daily as neededDece2024 12:00amComplies with drug therapyPantoprazole 40 mg tablet,delayed release (DR/EC)Qcmnuz36YOSUHsbct047Gpbyrizr 1st, 2025 2:05pmComplies with drug therapyAzithromycin (Zithromax) 250 mg astfnbZppfar2FF.OALWIGV91FkmnxrpcSeptember 28, 2025 12:00amFor 250 mg dose pack: take 500 mg today (day 1), then 250 mg for 4 days (days 2-5) POComplies with drug therapyPrednisone 20 mg ptxpmsJqszel75MYUA Twice gzxag649Srdtbemh 1st, 2025 12:00amComplies with drug therapyAlbuterol Sulfate 90 mcg/actuation HFA aerosol vwherygDuvfce6KUNVCDBLLXCXFZWsnew 6 hours as needed for shortness of breath or wheezing8.53September 28, 2025 12:00am Complies with drug therapyUmeclidinium-Vilanterol (Anoro Ellipta) 62.5-25 mcg/actuation blister with pzmqyhFekulc2CQOMUUFGKZFTEMclvh264767Gjnhccxg 1st, 2025 2:11pmComplies with drug therapyFinasteride 5 mg kraaybCqilixcekkvr5CPAN DailyJuly 2023 11:00pmOctober 2023 7:30amClopidogrel (Plavix) 75 mg exiigzMpmprsnutrfh28IGLHFsskyPysl 2023 11:00pmOctober 2023 7:30am Hydrochlorothiazide 12.5 mg nynkdcSwtmlk93.7GLUNMeiyx67711Pcmodctg 2024 12:00amComplies with drug therapyMetformin 500 mg tablet extended release 24 hr Afoisj887ESTEStiffMhxswkrx 2023 12:00amComplies with drug therapy Medical Equipment Device Date Implanted Device Details Drug-eluting coronary artery stent, wjv-lqkjinwwrcknh-vrkouag-coated April 27, 2021 FLY: [id number] Issuing Agency: [facility] Device Id: [id number] Lot Number: [id number] artery closure plug/patch, synthetic polymerJune 2020UDI: [id number] Issuing Agency: [facility] Device Id: [id number] Lot Number: [id number] Vital Signs Vital Reading Result Reference Range Collection Date/Time Height 69.5 [in_i] September 28, 2025 1:51vwAgrbuw440.32 kgDece2024 1:33pmBody Nquyhjhejhg42.1 [degF]97.6-99.0Decemb2024 1:33pmHeart Rate84 /kvn28-968 September 28, 2025 1:33pmRespiratory rate20 /ymc51-17Lsrjxsbe 1st, 2025 1:33pm Oxygen saturation by Pulse tqzhefaz51 %95-100ce2024 1:33pmBP Xhhripcn612 mm[Hg]100-140Decemb2024 1:33pmBP Cbskkjcgl48 mm[Hg]60-100 September 28, 2025 1:33pmBMI (Body Mass Index)33.5 kg/h4Vymfeozi2024 1:33pm Advance Directives Advance Directive Response Recorded Date/ Time Advance Directives No April 27 7:51am Insurance Providers Guarantor Zaid Mcarthur Address [address] [place] [address]Uxcafjv Info.Home Phone: Coverage Status Update:2025 Payer Group Member ID Coverage Type Subscriber Relationship to Subscriber Effective Date Expiration Date Luis RODRÍGUEZ [id number] L Beckley Id: [id number] [address] [place] [address] Home Phone: Email: [email or web address] Medicaid Id: [id number] L Beckley Id: [id number] [address] [place] [address] Home Phone: Email: [email or web address] Encounters Encounter Location(s) Arrival/Admit Date Discharge/Departure Date Discharge/Departure Disposition Provider(s) Departed Physician/ Provider Office Visit -[facility] September 28, 2025 1:29pm September 28, 2025 2:15pm Discharged to home care or self care (routine discharge) Erlinda Dhillon , Recent Diagnosis Onset Date Admit Date Atypical mycobacterial disease Unknown D ec2024 1:29pm Chronic pain Unknown September 28 1:29pm Coronary artery disease invo lving [place] heart without angina pectoris Unknown September 28, 2025 1:29pm Diastolic dysfunction Unknown September 282024 1:29pm Spondylosis of lumbar region without myelopathy or radiculopathy Unknown September 28, 2025 1:29pm Assessments Diagnosis Onset Date Resolution Status Admit Date Atypical mycobacterial disease acuteDecember 2024 1:29pmChronic painacuteDecember 2024 1:29pmCoronary artery disease involving [place] heart without angina pectorisacuteDece2024 1:29pmDiastolic dysfunctionacuteDecemb2024 1:29pmSpondylosis of lumbar region without myelopathy or radiculopathyacuteDecember 2024 1:29pm
--- NOTE | 2025-10-05 09:24 | CT_ITS ---
The [address] [address] Patient Name: JEZ MELLO MRN: [id number] date: 1960 Sex: M Assigned Patient Location: CT Current Patient Location: CT Accession/Order Number: [id number] Exam Date: 10/05/2025 10:15 Report Date: 10/05/2025 11:13 At the request of: CORNELIO BIRMINGHAM Procedure: CT chest w con CT CHEST WITH INTRAVENOUS CONTRAST: CLINICAL HISTORY: Follow-up in patient with history of right lower lobe malignancy with resection. Prior tobacco use. COMPARISON: Chest x-ray 05/28/[address] abdomen TECHNIQUE: Spiral images were obtained through the chest following intravenous administration of 100 mL of Omnipaque 300. Images were reviewed using both narrow and wide window settings. This CT exam was performed using one or more following dose reduction techniques: Automated exposure control, adjustment of the mA and/or kV according to patient size, or use of iterative reconstruction technique. FINDINGS: Median sternotomy wires are present. The heart is not enlarged. There is no pericardial effusion. There is coronary artery disease. No aortic aneurysm or dissection is seen. There is no mediastinal or hilar lymphadenopathy. Left hilar and perihilar granulomas are seen. There is subtle levoscoliotic curvature as well as endplate spurring at the spine. There is mild apical scarring. There is a staple line and scarring at the paraspinal right lower lobe. There is no consolidation, pleural effusion or discrete soft tissue nodules. There is no pneumothorax. Limited cuts through the upper abdomen show suspected fatty liver and hepatic cysts. There are calcified splenic granulomas. A partially imaged left renal cyst and nephrolithiasis are noted. CT/CT chest w con IMPRESSION: GRANULOMAS CHANGES AND SCARRING. NO EVIDENCE OF RECURRENT OR METASTATIC DISEASE Impression dictated by: Vonda Garcia M.D. 10/05/2025 11:13 AM Dictation Location: [place] [address] Electronically authenticated by: [id number] Y Date: 10/05/2025 11:13
--- OUTSIDE RECORDS SUMMARY | 2025-10-05 09:25 | XMS_ITS | CCD ---
Author Organization [facility] Care Team Providers Care Meat Seafood Associate Name Role Phone Unknown, Referring Provider Unavailable [...] Care Provider MD Mickie Das Attending Provider [phone] DO Norm Jackson Attending Provider Unavailable Unavailable Unavailable Unavailable MD Consuelo Villasenor Primary Care Provider MD Jaswinder Flores Admit Provider MD Jaswinder Flores Attending Provider NANDO Maldonado Other Provider Unavailable DO Norm Jackson Other Provider MD Fracnes Gayle Other Provider [phone] MD Walt Becker Other Provider MD Franklin Anderson Other Provider MD Ottoniel Valdovinos Other Provider BOBY Oneill Other Provider [phone] MD Sahra Diez Other Provider MD Blayne Aguilera Other Provider MD Percy Wei Other Provider LILO, DR WRIGHT Attending Unavailable HAY, DR WRIGHT Admitting Unavailable MISC, DR GUERRA Primary Care Unavailable ZIEBER, DR SAUNDRA Naylor Consulting Unavailable LILO, DR WRIGHT Consulting Unavailable MARSHAL, SABINO Admitting Unavailable MISC, DR GUERRA Primary Care Unavailable ZIEBER, DR SAUNDRA Naylor Consulting Unavailable MARSHAL, SABINO Attending Unavailable MARSHAL, SABINO Consulting Unavailable Shaikh Elliott Unavailable Manuel, Dr. Walt Hayden Referring Unava ilable Manuel, Dr. Walt Hayden Attending Unava ilable Manuel, Dr. Walt Hayden Attending Unava ilable Jacklyn, [facility] Unavai lable Manuel, Dr. Walt Hayden Referring Unava ilable Jacklyn, [facility] Primary Care Unavai lable Manuel, Dr. Walt Hayden Attending Unava ilable Jacklyn, [facility] Unavai lable Jacklyn, [facility] Unavai lable Manuel, Dr. Walt Hayden Attending Unava ilable Manuel, Dr. Walt Hayden Attending Unava ilable Manuel, Dr. Walt Hayden Referring Unava ilable UNKNOWN, [facility] Primary Care Unavailable Manuel, Dr. Walt Hayden Referring Unava ilable Manuel, Dr. Walt Hayden Attending Unava ilable Unavailable Unavailable MD Jens Elliott Primary Care Provider MD Jens Elliott Attending Provider [phone] AZIZA LYNCH Attending Unavailable SHAIKH ELLIOTT Referring Unavailable SHAIKH ELLIOTT Primary Care Unavailable MD Jens Elliott Primary Care Provider [phone] DO Natty Mckeon Attending Provider Fawwad MD, [place] Primary Care Provider Shaikh Elliott MD Unavailable Lexi RODRIGUEZ, [facility] Provider Natty Mckeon DO Attending Provider Dariusz IMPORT/EXPORT AGENT-C, [facility] Provid er Johanne RODRIGUEZ, Mariah Saldivar Attending Unavailable Johanne RODRIGUEZ, Mariah Saldivar Attending Unavailable Evelia Lacey Francisco Javier Admitting Unavailable LyLacey Attending Unavailable Dariusz, [facility] Primary Care Unavaila Natty Shanks Admitting Unavailab Natty Patrick [facility] Shanks Admitting Unavailab Natty Patrick Attending Unavailab le Lexi [facility] Unavailable Arzola CURATOR OF MANUSCRIPTS-REPACKER, [facility] Prov ider WALT JACKSON Attending Unavailable WALT JACKSON Referring Unavailable [facility] Unavailjuan carlos Elliott MD, [facility] Primary [facility] Provider Natty Mckeon DO Attending Provider Lacey Altamirano DO Attending Provider Lexi RODRIGUEZ, [facility] Primary Care Provider Arzola CURATOR OF MANUSCRIPTS-REPACKER, [facility] Pr ovider ROSEMARY ARZOLATANY Attending UnavailMARY Slade Attending Unavailable JUNIE DONOVAN Attending Unavailable SHAIKH ELLIOTT Referring Unavailable SHAIKH ELLIOTT Attending Unavailable SHAIKH ELLIOTT Attending Unavailable JUNIE PRIEST Attending Unavailable SHAIKH ELLIOTT Referring Unavailable MAMADOU MILES Attending Unavailable SHAIKH ELLIOTT Referring Unavailable CHRISTINE LOCK Attending Unavailable SHAIKH ELLIOTT Referring Unavailable CEMJUNIE DIAZ Attending Unavailable FAWDORYSD, [place] Referring Unavailable MAMADOU MILES Attending Unavailable FAWWAD, [place] Referring Unavailable CHRISTINE LOCK Attending Unavailable FAWWAD, [place] Referring Unavailable CEMJUNIE KIRK Attending Unavailable FAWWAD, [place] Referring Unavailable FAWWAD, [place] Attending Unavailable TIMOTHY PHAN Attending Unavailable FAWWAD, [place] Referring Unavailable LCOKKENISHAEN Attending Unavailable FAWWAD, [place] Referring Unavailable LOCK, CHRISTINE Attending Unavailable FAWWAD, [place] Referring Unavailable LOCKCHRISTINE Attending Unavailable FAWWAD, [place] Referring Unavailable ARZOLAKSENIA MCDOWELL Attending Unavailabl e NATTY MCKEON Attending Unavailable ARZOLA, KSENIA Referring Unavailabl e NATTY MCKEON Attending Unavailable DARIUSZ, KSENIA Attending Unavailabl e NATTY MCKEON Attending Unavailable MARY BARAHONA Attending Unavailable KSENIA ARZOLA Attending Unavailabl e STEPHANIE العراقي Attending Unavailable DARIUSZ, KSENIA Referring Unavailabl NATTY Lozada Attending Unavailable STEPHANIE العراقي Referring Unavailable CEMJUNIE DIAZ Attending Unavailable STEPHANIE العراقي Referring Unavailable CEMJUNIE DIAZ Attending Unavailable STEPHANIE العراقي Referring Unavailable STEPHANIE العراقي Attending Unavailable Arzola CURATOR OF MANUSCRIPTS-REPACKER, Ksenia Muhammad Primary Care Pr ovider Justo Chaney MD Primary Care Provider VEENA CASIANO Attending Unavailable LEXI, Referring Unavailable KSENIA ARZOLA Primary Care Unavaila VEENA Khan Attending Unavailable KSENIA ARZOLA Referring Unavaila JUSTO Ledesma Primary Care Unavailable CORNELIO BIRMINGHAM Attending Unavailable CORNELIO BIRMINGHAM Referring Unavailable ARZOLA, KSENIA Muhammad Primary Care Unavaila ble CORNELIO BIRMINGHAM Attending Unavailable LEXI, Referring Unavailable ARZOLAKSENIA Primary Care Unavaila NATTY Shanks Referring Unavailab le ARZOLA, KSENIA N Primary Care Unavaila ble ARZOLA, KSENIA N Referring Unavaila ble ARZOLA, KSENIA N Primary Care Unavaila ble ARZOLA, KSENIA N Referring Unavaila ble ARZOLA, KSENIA N Primary Care Unavaila ble ARZOLA, KSENIA N Referring Unavaila ble ARZOLA, KSENIA N Primary Care Unavaila ble CORNELIO BIRMINGHAM N Attending Unavailable CORNELIO B[place] N Referring Unavailable ARZOLA, KSENIA N Primary Care Unavaila ble ARZOLA, KSENIA N Referring Unavaila ble ARZOLA, KSENIA N Primary Care Unavaila ble VINNIE, GRIMES N Attending Unavailable SHAIKH ELLIOTT Referring Unavailable ARZOLA, KSENIA N Primary Care Unavaila ble VEENA CASIANO Referring Unavailable ARZOLA, KSENIA N Primary Care Unavaila ble OHVEENA CALLES Attending Unavailable VEENA CASIANO Referring Unavailable ARZOLA, KSENIA N Primary Care Unavaila ble OHVEENA CALLES Referring Unavailable NADEREJUSTO Naylor Primary Care Unavailable Shaikh Elliott MD Primary Care Provider Shaikh Elliott MD Unavailable Medications Current Medications MedicationDrug Class(es)DatesSig (Normalized)Sig (Original)acetaminophen 325 mg oral tablet (20 sources)Start: 65-85-1496tacl 1 tablet by mouth every six hoursAcetaminophen (Tylenol) 325 mg tablet Active 325 MG PO Every 6 hours October 14, 2024 12:00amtake 1 tablet by mouth every twenty-four hours as needed for pain acetaminophen (Tylenol) 500 MG tablet Take 500 mg by mouth Daily as needed for moderate pain Activeamoxicillin 500 mg oral capsule (11 sources)Penicillin-class AntibacterialStart: 03-12-2024 End: 45-31-2191jixq 1 capsule by mouth three times dailyamoxicillin (AMOXIL) 500 mg capsule Take 1 capsule (500 mg total) by mouth 3 (three) times a day for 7 days. 21 capsule 03/12/2024 03/19/2024 ActiveStart: 05-11-2022 End: 13-64-2884ubge 1 capsule by mouth every eight hoursAmoxicillin 500 mg capsule Discontinued 500 MG PO Q8H May 10, 2022 11:00pm May 12, 2022 7:13amaspirin 81 mg delayed release oral tablet (20 sources)Platelet Aggregation Inhibitor, Nonsteroidal Anti-inflammatory Drug Start: 39-47-7411fdxw 1 tablet by mouth once dailyAspirin 81 mg Tablet,Delayed Release (Dr/Ec) Active 81 MG PO Daily April 26, 2021 11:00pmtake 1 tablet by mouth once dailyAspir-Low 81 MG 1 tablet Orally Once a day Activeatorvastatin 80 mg oral tablet (20 sources)HMG-CoA Reductase InhibitorStart: 24-81-1984yzvu 1 tablet by mouth at bedtimeatorvastatin (Lipitor) 80 MG tablet Take 80 mg by mouth at bedtime 08/05/2023 ActiveStart: 10-25-2020 End: 27-47-5787clyl 1 tablet by mouth once dailyatorvastatin (LIPITOR) 40 mg tablet Take 1 tablet (40 mg total) by mouth daily. 30 tablet 6 10/25/2020 Active finasteride 5 mg oral tablet (18 sources)5-alpha Reductase InhibitorStart: 07-30-2023 End: 95-97-4029ndbb 1 tablet by mouth in the morningfinasteride (PROSCAR) 5 mg tablet Take 1 tablet (5 mg total) by mouth in the morning. 30 tablet 6 Activefluticasone propionate 0.05 mg/actuat metered dose nasal spray (5 sources)CorticosteroidStart: 52-85-2613kcxe 1 spray(s) nasal route once daily Fluticasone Propionate (Flonase Allergy Relief) 50 mcg/actuation spray,suspension Active 2 SPRAY INTRANASAL Daily 48 90 August 06, 2024 11:00pm administer into each nostrilhydroCHLOROthiazide 12.5 mg oral tablet (5 sources)Thiazide DiureticStart: 92-25-9334wrnl 1 tablet by mouth once daily hydroCHLOROthiazide (HYDRODIURIL) 12.5 mg tablet Take 1 tablet (12.5 mg total) by mouth daily. 12/09/2024 Lzdqes37 hr isosorbide mononitrate 60 mg extended release oral tablet (20 sources)Nitrate VasodilatorStart: 07-28-2022 End: 15-78-5079watc 1 tablet by mouth in the morning, then take 1 tablet by mouth every twenty-four hoursisosorbide mononitrate ER (Imdur) 60 MG 24 hr tablet Take 60 mg by mouth in the morning. 09/24/2023ctiveStart: 05-12-2022 End: 02-18-3075gddk 1 tablet by mouth once daily, then take 1 tablet by mouth every twenty-four hoursIsosorbide Mononitrate 30 mg tablet extended release 24 hr Discontinued 30 MG PO Daily May 11, 2022 11:00pm July 28, 2022 4:24pmlevoFLOXacin 500 mg oral tablet (7 sources)Quinolone AntimicrobialStart: 11-28-2023 End: 72-13-6041axzk 1 tablet by mouth in the morninglevoFLOXacin (LEVAQUIN) 500 mg tablet Take 1 tablet (500 mg total) by mouth in the morning for 7 days. 7 tablet 0 11/28/2023 12/05/2023 ActiveStart: 10-30-2023 End: 87-73-3148xqza 1 tablet by mouth in the morninglevoFLOXacin (LEVAQUIN) 500 mg tablet Take 1 tablet (500 mg total) by mouth in the morning for 5 days. 5 tablet 0 10/30/2023 11/05/2023 Discontinued (Therapy completed)24 hr metFORMIN hydrochloride 500 mg extended release oral tablet (20 sources)BiguanideStart: 91-21-0341wulx 1 tablet by mouth once daily at breakfastmetFORMIN XR (GLUCOPHAGE XR) 500 mg 24 hr tablet Take 1 tablet (500 mg total) by mouth daily with breakfast. 09/16/2024 ActiveStart: 09-01-2024 End: 20-58-4489crsg 1 tablet by mouth every twenty-four hours at mealtime metFORMIN XR (Glucophage-XR) 500 MG 24 hr tablet Indications: Type 2 diabetes mellitus without complication, without long-term current use of insulin (CMS/HCC) Take 1 tablet (500 mg) by mouth in the evening. Take with meals Do not crush, chew, or split. 30 tablet 11 09/01/2024 09/01/2025 Activetake 1 tablet by mouth once dailymetFORMIN (Glucophage) 500 mg tablet Take 1 tablet (500 mg) by mouth once daily. Activemetoprolol tartrate 25 mg oral tablet (20 sources)beta-Adrenergic BlockerStart: 04-27-2021 End: 79-11-4504pdjk 1 tablet by mouth in the morningmetoprolol tartrate (Lopressor) 25 MG tablet Take 25 mg by mouth in the morning and 25 mg before bed time. 09/26/2023 Activemultivit-min/ferrous fumarate (MULTI VITAMIN ORAL) (1 source)take 1 tablet by mouth once dailymultivit-min/ferrous fumarate (MULTI VITAMIN ORAL) Take 1 tablet by mouth once daily. Activenitroglycerin 0.4 mg sublingual tablet (20 sources)Nitrate VasodilatorStart: 32-63-6698rctsnabbebyqa (Nitrostat) 0.[address] 0.4 mg under the tongue every 5 (five) minutes if needed 11/10/2022 Activeomeprazole 20 mg delayed release oral capsule (5 sources)Proton Pump Inhibitortake 1 capsule by mouth before mealtime omeprazole (PriLOSEC) [address] capsule Take 20 mg by mouth in the morning. Take before meals. Do not crush or chew.. Activetamsulosin hydrochloride 0.4 mg oral capsule (20 sources)alpha-Adrenergic BlockerStart: 08-28-2024 End: 71-53-4617humx 2 capsules by mouth once dailytamsulosin (FLOMAX) 0.4 mg capsule Take 2 capsules (0.8 mg total) by mouth nightly. 180 capsule 3 ActiveStart: 93-27-7276wzui 1 capsule by mouth twice dailyTamsulosin (Flomax) 0.4 mg capsule Active 0.4 MG PO Twice daily August 07, 2024 7:30am Start: 38-66-7073bqgf 1 capsule by mouth every twenty-four hours in the morning tamsulosin (Flomax) 0.4 MG 24 hr capsule Take 0.4 mg by mouth in the morning. 09/05/2023 ActiveStart: 09-05-2023 End: 45-60-1129zrzj 1 capsule by mouth at bedtimetamsulosin (FLOMAX) 0.4 mg capsule TAKE 1 CAPSULE (0.4 MG TOTAL) BY MOUTH IN THE MORNING AND AT BEDTIME FOR 180 DAYS. 180 capsule 1 02/04/2024 08/02/2024 ActiveStart: 04-27-2021 End: 10-01-6225dnpb 1 capsule by mouth once daily in the eveningtamsulosin (FLOMAX) 0.4 mg capsule TAKE 1 CAPSULE BY MOUTH EVERY DAY IN THE EVENING 90 capsule 1 12/31/2023 08/28/2024 DiscontinuedtiZANidine 4 mg oral tablet (10 sources)Central alpha-2 Adrenergic AgonistStart: 12-02-2024 End: 61-30-4034zzcq 0.5 tablet by mouth twice daily as needed for muscle spasms tiZANidine (Zanaflex) 4 MG tablet Indications: Acute right-sided thoracic back pain Take 0.5 tablets (2 mg) by mouth 2 (two) times a day as needed for muscle spasms 30 tablet 3 12/25/2024 Qflixo19 actuat umeclidinium 0.0625 mg/actuat / vilanterol 0.025 mg/actuat dry powder inhaler (20 sources)Anticholinergic, beta2-Adrenergic AgonistStart: 08-07-2024 End: 62-20-1894vpfn 1 puff(s) by inhalation in the morningAnoro Ellipta 62.5-25 MCG/ACT aerosol powder Inhale 1 puff in the morning. 08/07/2024 ActiveStart: 47-41-2354atvu 1 puff(s) by inhalation once dailyAnoro Ellipta 62.5-25 mcg/actuation blister with device Inhale 1 puff once daily. 08/07/2024 Active Start: 11-88-3134Acrylhswmvws-Vilanterol (Anoro Ellipta) 62.5-25 mcg/actuation blister with device Active 1 INH INHALATION Daily 180 90 August 06, 2024 11:00pm Completed/Discontinued Medications MedicationDrug Class(es)DatesSig (Normalized)Sig (Original)clopidogrel 75 mg oral tablet (20 sources)P2Y12 Platelet InhibitorStart: 05-07-2024 End: 94-91-6513rgws 1 tablet by mouth once dailyClopidogrel (Plavix) 75 mg tablet Discontinued 75 MG PO Daily May 06, 2024 11:00pm August 07, 2024 7:30amStart: 10-04-2022 End: 55-22-1103zvss 1 tablet by mouth once dailyClopidogrel Bisulfate 75 MG Oral Tablet TAKE 1 TABLET BY MOUTH EVERY DAY Quantity: 90 Refills: 3 Ordered: 07-Jun-2023 Gigi Bui APRN-Caterina MARCANO Start : 04-Oct-2022 Active1 ml methylPREDNISolone acetate 40 mg/ml injection (4 sources)CorticosteroidStart: 10-07-2024 End: 89-16-3960cxxccuYBXJTVWzjsqx acetate (DEPO-Medrol) injection 40 mgStart: 10-07-2024 End: 00-89-601490 mg, Intra-articular, Once PRN Procedure, Starting on Sun10/07/24 at 1141, For 1 doseondansetron 4 mg disintegrating oral tablet (1 source)Serotonin-3 Receptor AntagonistStart: 11-10-2022 End: 13-96-0124krgjbzdkrwb ODT (ZOFRAN ODT) 4 mg disintegrating tablet DISSOLVE 1 TABLET ON TONGUE EVERY 6 HOURS NEEDED FOR FOR NAUSEA AND VOMITING 0 11/10/2022 10/24/2023 Discontinuedpantoprazole 40 mg delayed release oral tablet (20 sources)Proton Pump InhibitorStart: 17-93-4909Dyspnckrubqj Active MG PO August 07, 2024 12:00amStart: 07-28-2024 End: 26-97-9329qnha 1 tablet by mouth before mealtimepantoprazole (Protonix) 40 MG EC tablet Indications: Heartburn Take 1 tablet (40 mg) by mouth in the morning. Take before meals. Do not crush, chew, or split.. 30 tablet 11 07/28/2024 07/28/2025 ActiveStart: 12-06-2022 End: 39-46-2684exlh 1 tablet by mouth in the morningpantoprazole (PROTONIX) 40 mg EC tablet Take 1 tablet (40 mg total) by mouth in the morning. 30 tablet 0 12/06/2022 10/24/2023 Discontinuedpregabalin 25 mg oral capsule (11 sources)Start: 06-26-2024 End: 82-53-3349zjch 1 capsule by mouth in the morningpregabalin (Lyrica) 25 MG capsule Indications: Low back pain potentially associated with radiculopathy , Multiple neurological symptoms Take 1 capsule (25 mg) by mouth in the morning and 1 capsule (25 mg) before bedtime. 60 capsule 06/26/2024 07/28/2024 Discontinued (Side effects)ticagrelor 90 mg oral tablet (20 sources)Start: 04-29-2021 End: 06-41-3297qhxo 1 tablet by mouth twice dailyTicagrelor (Brilinta) 90 mg Tablet Discontinued 90 MG PO Twice daily 180 90 April 28, 2021 11:00pm August 07, 2024 7:31am Problems Active Problems Problem ClassificationProblemDateDocumented DateEpisodic/ChronicAcute myocardial infarction (20 sources)Myocardial infarction; Translations: [Acute myocardial infarction of unspecified site, episode of care unspecified]Onset: ChronicComment on above:Problem List clean-up per request of Phys. EHR Cmte Bacterial infection; unspecified site (11 sources)Mycobacterial infection, unspecified; Translations: [Atypical mycobacterial infection]EpisodicCancer of bronchus; lung (20 sources)Non-small cell lung cancer; Translations: [Malignant neoplasm of unspecified part of unspecified bronchus or lung]Onset: 83-57-9225GdwktykRnxikcs obstructive pulmonary disease and bronchiectasis (20 sources)Chronic obstructive lung disease; Translations: [Chronic obstructive pulmonary disease, unspecified]Onset: 04-09-2017 Resolved: 14-61-4979HklsgrrDsxinfk on above:diagnosed 3 years ago, no home oxygenComplication of device; implant or graft (3 sources)Arteriosclerosis of coronary artery bypass graft; Translations: [Atherosclerosis of coronary arterybypass graft(s) without angina pectoris] Onset: 320244-33-1101WwifnymHbiqonpk atherosclerosis and other heart disease (20 sources)Coronary arteriosclerosis; Translations: [Coronary atherosclerosis of unspecified type of vessel, poarch or graft]Onset: 03-05-2017 Resolved: 97-19-7855EoyuyqkBzdkhfh on above:Problem List clean-up per request of Phys. EHR CmteCoronary atherosclerosis and other heart disease (6 sources)Presence of aortocoronary bypass graft; Translations: [Personal history of surgery to heart and great vessels, presenting hazards to health] Onset: 362275-42-5198OrtovoxrSzoutpaa mellitus without complication (20 sources)Type 2 diabetes mellitus without complication; Translations: [Type 2 diabetes mellitus without complications]Onset: 587130-25-5413Cpkwvdh Disorders of lipid metabolism (20 sources)Hyperlipidemia; Translations: [Other and unspecified hyperlipidemia] Onset: 795581-67-8013HairrdkCslnvhvadv disorders (20 sources)Gastroesophageal reflux disease; Translations: [Gastro-esophageal reflux disease without esophagitis]Onset: 662016-63-1135AezfllrAbpdoiuuf hypertension (1 source)Hypertensive disorder; Translations: [Essential (primary) hypertension]20-17-5207OoxcmeiWjtbmgzrrwj of prostate (20 sources)Benign prostatic hyperplasia; Translations: [Benign prostatic hyperplasia with lower urinary tract symptoms]Onset: hronic Other acquired deformities (1 source)Spondylolysis, lumbar region; Translations: [Spondylolysis, lumbar region]Onset: 05-49-3417AntmjrcoYazfe aftercare (1 source)nursing home (current) use of aspirin; Translations: [NURSING HOME CURRENT USE OF ASPIRIN]Onset: 49-68-3500HcnxdtjuTsgnt aftercare (2 sources)H/O: high risk medication; Translations: [Other jail (current) drug therapy]17-78-3004SbovaxkaGqzqa and ill-defined heart disease (5 sources)Diastolic dysfunction; Translations: [Other ill-defined heart diseases]44-83-6607ShqjujbWbmup and ill-defined heart disease (5 sources)Other ill-defined heart diseases; Translations: [Heart disease, unspecified]57-74-9746QbeceghLgsic connective tissue disease (5 sources)Muscle weakness of upper limb; Translations: [Other symptoms and signs involving the musculoskeletal system]47-15-5177IlyydhrcBhnqs connective tissue disease (5 sources)Pain in left arm; Translations: [Pain in left arm]47-61-9337Mjnyrhji Other diseases of bladder and urethra (20 sources)Bladder outlet obstruction; Translations: [Bladder-neck obstruction] Onset: 001926-23-1374KuanuhtTlnvr gastrointestinal disorders (2 sources)Heartburn; Translations: [Heartburn]81-36-9352QqwdsfppBzwee lower respiratory disease (6 sources)Solitary nodule of lung; Translations: [Solitary pulmonary nodule] EpisodicOther lower respiratory disease (1 source)Shortness of breath; Translations: [SHORTNESS OF BREATH]Onset: 85-95-1930OusdacjuThliy nervous system disorders (9 sources)Polyneuropathy; Translations: [Polyneuropathy, unspecified]08-25-2024 ChronicOther nervous system disorders (1 source)Carpal tunnel syndrome of left wrist; Translations: [Carpal tunnel syndrome, left upper limb]94-80-0841MriwwgwFkvdv nervous system disorders (1 source)Chronic pain; Translations: [Other chronic pain]17-74-3932LmhzofhOmgyl nervous system disorders (2 sources)Other chronic pain; Translations: [Other chronic pain]Onset: 105007-95-2825QxrcidyEzvmq nervous system disorders (1 source)Polyneuropathy, unspecified; Translations: [Polyneuropathy, unspecified]Onset: 96-24-7091KtwyyllDmpxw nervous system disorders (5 sources)Numbness; Translations: [Anesthesia of skin]45-76-9551KdcthfxjItvlr nutritional; endocrine; and metabolic disorders (20 sources)Body mass index 30+ - obesity; Translations: [Body Mass Index 30.0- 30.9, adult]Onset: 811789-44-1863QfzgihkCajio nutritional; endocrine; and metabolic disorders (20 sources)Obesity; Translations: [Obesity, unspecified]Onset: 10-04-2023 43-87-8790TkiuidlKniwa nutritional; endocrine; and metabolic disorders (2 sources)Body mass index (BMI) 36.0-36.9, adult; Translations: [Body mass index (BMI) 36.0-36.9, adult]Onset: 12-05-2593VxijskkPneqd upper respiratory disease (5 sources)Rhinitis; Translations: [Chronic rhinitis]57-10-7434WppshgrKbuoo upper respiratory disease (5 sources)Chronic rhinitis; Translations: [Chronic rhinitis]07-31-4953Edzsxex Spondylosis; intervertebral disc disorders; other back problems (17 sources)Degeneration of lumbar intervertebral disc; Translations: [Degeneration of intervertebral disc of lumbar region with discogenic back pain and lower extremity pain]08-17-4778DfknxuiTzdhvlrrnlam (1 source)CONTACT W/AND (SUSP) EXPOS COVID-19; Translations: [CONTACT W/AND (SUSP) EXPOS COVID-19]Onset: 37-45-4474Cthtxepwmbny (1 source)Chronic pain of left upper gpnb71-01-5547Gsprwchfqvmr (1 source)Other intervertebral disc degeneration, lumbar region with discogenic back pain and lower extremitypain; Translations: [Other intervertebral disc degeneration, lumbar region with discogenic back pain and lower extremity pain] Onset: 09-10-2024 Past or Other Problems Problem ClassificationProblemDateDocumented DateEpisodic/ChronicAbdominal pain (20 sources)Unspecified abdominal pain; Translations: [Periumbilical pain]Onset: 08-46-1901LvbfvpjoAdbutmbt of urinary tract (20 sources)Calculus in bladder; Translations: [Kidney stone]Onset: 05-31-2022 67-47-8380ZjkljcedTroulogt mellitus without complication (20 sources)Blood glucose abnormal; Translations: [Other abnormal glucose]Onset: 268027-58-9904PwlhjqjuFlvagdvbwkiju symptoms and ill-defined conditions (8 sources)Retention of urine, unspecified; Translations: [Gross hematuria] Onset: 973789-28-9228CygrzjvjBprz disorders (20 sources)Mood disordersOnset: 292512-32-3066Uuhzbry (1 source)Unspecified mycosisOnset: 03-08-2022 Resolved: 65-60-9214ThfwbznoHbfsiqyfrvd chest pain (20 sources)Chest pain; Translations: [Chest pain, unspecified]Onset: 07-26-2022 60-49-4726CkqjiddxKebcpcm on above:Problem List clean-up per request of Phys. 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]Onset: 811128-53-2271GnepjnutFppjp connective tissue disease (20 sources)Neurological symptom; Translations: [Unspecified symptoms and signs involving the nervous system]Onset: 461408-04-5407TphtormkXmgpf connective tissue disease (20 sources)Neuropathic pain; Translations: [Neuralgia and neuritis, unspecified]Onset: 954362-28-7413HxkchkpdLbpcd lower respiratory disease (20 sources)Lung mass; Translations: [Swelling, mass, or lump in chest]Onset: 328542-20-1975IuinmwppDccpk lower respiratory disease (20 sources)Dyspnea on exertion; Translations: [Dyspnea, unspecified]Onset: 284956-90-1656ZsxefervPvjgn lower respiratory disease (20 sources)Other nonspecific abnormal finding of lung field; Translations: [Swelling, mass, or lump in chest]Onset: 04-09-2017 Resolved: 61-14-0066IosfpoeaPcxuk lower respiratory disease (1 source)Dyspnea, unspecifiedOnset: 11-15-2021 Resolved: 95-89-2909HpbbfakxRosds lower respiratory disease (20 sources)Cough; Translations: [Cough]Onset: 599350-05-9827RivcknchIgnmh nervous system disorders (20 sources)Pain in limb; Translations: [Paresthesia of skin]Onset: 07-13-2024 04-11-0434QpnojktgYubwp nervous system disorders (20 sources)Paresthesia of hand ; Translations: [Anesthesia of skin]Onset: 492434-88-8619GdwgdruyYaadh nervous system disorders (1 source)Anesthesia of skin; Translations: [Anesthesia of skin]Onset: 34-55-6142HyrulpthPkvir nervous system disorders (1 source)Paresthesia of skin; Translations: [Paresthesia of skin]Onset: 63-60-7994AohwzbjrZtfrv non-traumatic joint disorders (20 sources)Chronic pain of left upper limb; Translations: [Pain in left shoulder]Onset: 970592-25-0567IhevfkmaNqpth non-traumatic joint disorders (20 sources)Disorder of shoulder; Translations: [Other specified joint disorders, left shoulder]Onset: 33-16-147828889362-55-4640EtfxhianAprik non-traumatic joint disorders (5 sources)Pain in left shoulder; Translations: [Pain in joint, shoulder region] Onset: 387959-65-4442BggsdamfTssev screening for suspected conditions (not mental disorders or infectious disease) (20 sources)Patient encounter status; Translations: [Encounter for screening for malignant neoplasm of colon]Onset: 265048-79-4055RjpruadkZuptu skin disorders (20 sources)Dry skin dermatitis; Translations: [Xerosis cutis]Onset: 04-14-2024 61-53-8397HlnydcxgZjfls upper respiratory infections (20 sources)Acute frontal sinusitis; Translations: [Acute frontal sinusitis, unspecified]Onset: 964898-33-6125IvixtatxZtwxwanob (except that caused by tuberculosis or sexually transmitted disease) (1 source)Pulmonary mycobacterial infectionOnset: 03-08-2022 Resolved: 13-44-9833MgdeicucMgwpekon codes; unclassified (20 sources)H/O: asbestos exposure; Translations: [Contact with and (suspected) exposure to asbestos]Onset: 253432-25-8647BfqmzwfeKdtrrykul and history of mental health and substance abuse codes (20 sources)Ex-smoker; Translations: [Personal history of tobacco use]Onset: 03-05-2017 Resolved: 686210-64-0544NhgodvorYwmqllt on above:QUIT 15 YEARS AGO 2006- SMOKED ABOUT 2 PPD;Spondylosis; intervertebral disc disorders; other back problems (20 sources)Low back pain; Translations: [Low back pain potentially associated with radiculopathy]Onset: 892055-73-3173YgwtdezeGambhsq tract infections (20 sources)Urinary tract infectious disease; Translations: [Urinary tract infection, site not specified]Onset: 247312-04-1222Byvbrxur Results Test NameValueInterpretationReference RangeFacilityMeasure post void residualon 47-92-0772Xbauqy942zKYtaYmmyco Health SystemProMercy Health St[facility] SystemPOCT Urinalysis Auto, W/O Microscopyon 72-67-8164Gldgynui Poct Urine BloodTrace [facility] SystemExternal Poct Urine GlucoseNegativeProMercy Health St. [facility] SystemExternal Poct Urine KetonesNegativeProMercy Health St. [facility] SystemExternal Poct Urine Leukocyte EsteraseModerateProMercy Health St. [facility] SystemExternal Poct Urine NitritePositiveProMercy Health St. [facility] SystemExternal Poct Urine Rr7EhcLkktfkMercy Health St. [facility] SystemExternal Poct Urine ProteinTraceProMedica [facility] SystemProMercy Health St. [facility] SystemPROSTATIC SPECIFIC ANTIGEN, DIAGNOSTICon 35-99-1087PXDAYKSWA SPEC ANT2.19 ng/mLNormal0.00-4.00ProChristus Spohn Hospital – KlebergComfresenius [facility] [place] on above:Result Comment: The method used for this test is David [place] DXI chemiluminescent immunoassay. Values obtained by different assay methods cannot be used interchangeably.Performed By: #### PSA ####[facility] ([facility])[address] [address] VIRProstatic specific antigen, diagnosticon 00-57-0734Bkwinsagfeefji and review of laboratory resultsNormalProPromedica Memorial HospitalProstate specific Ag [Mass/Vol]2.19 ng/mL 0.00 - 4.00 ng/mLCherrington HospitalComment on above:The method used for this test is David [place] DXI chemiluminescent immunoassay. Values obtained by different assay methods cannot be used interchangeably. [facility] SystemXR ABDOMEN AP 1 VWon 65-07-9651DC ABDOMEN AP 1 VWXR ABDOMEN AP 1 VW XR ABDOMEN AP 1 VW HISTORY: Kidney stone surveillance COMPARISON: CT abdomen and pelvis 08/11/2024 FINDINGS: Supine AP views obtained. Nonobstructive bowel gas pattern. Two radiopacities superimposing the left renal shadow the largestmeasuring 6.5 mm. Redemonstration of bladder calculus, prior measuring 1.4 cm, now measuring 1.8. Phleboliths present in the pelvis. Multilevel degenerative changes throughout the thoracolumbar spineand bilateral hips. IMPRESSION: * Left nephrolithiasis. * Redemonstration of 1.8 cm bladder calculus, mildly enlarged from prior. Approved by Jonelle Gomez MD on 07/07/2025 7:28 AM I, Davis Pugh have personally reviewed the image(s) and agree with and/or edited the report Finalized by Davis Pugh on 07/07/2025 7:46 [facility] URINE CULTUREon 83-85-6619Dgvndkoj identified Cx Nom (U)CULTURE RESULTS >100,000 ORGANISMS/mL NORMAL UROGENITAL FLORANoOhioHealth Pickerington Methodist [facility] Comment on above:Order Comment: Urine received without preservative - delays in transport may affect results. Interpret with caution and clinical correlation is recommended.Performed By: #### UC ####[facility] (TT)[address] [address] VIRCT CHEST W CONTon 12-61-9722PI CHEST W CONTCT CHEST W CONT STUDY: CT chest with contrast CLINICAL HISTORY: Staging, restaging, follow-up 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 (CMS-HCC); Lung mass COMPARISON: 08/11/2024 TECHNIQUE: CT chest was performed utilizing 5 mm axial reconstructions following the uneventful administration of 100 cc Omnipaque 300 nonionic intravenous contrast. Coronal and sagittal reformatted images were obtained and reviewed. Automated exposure control was utilized. FINDINGS: No pleural or pericardial effusion. No enlarged axillary, mediastinal or hilar lymph nodes. Atherosclerotic thoracic aorta. Prior coronary artery bypass graft. Stable postoperative changes of the right lung. There is punctate 2 mm left upper lobe pulmonary nodule image #29, stable. Pulmonary consolidation is identified. Degenerative changes of the thoracic spine. No vertebral body loss. IMPRESSION: 1. Stable examination. There is no evidence of progressive thoracic metastatic or neoplastic disease. All CT scans at this facility use dose modulation, iterative reconstruction, and/or weight based dosing when appropriate to reduce radiation dose to as low as reasonably achievable. Finalized by Davis Vaughan MD on 02/18/2025 10:04 [facility] CenterCREATININEon 21-68-4642Wkyxwybhnh [Mass/Vol]1.10 mg/dLNormal0.70-1.20 [facility] HospitalComment on above:Result Comment: METHOD TRACEABLE TO IDMS STANDARDPerformed By: #### DISTRICT BRANCH MANAGER ####[facility] ([id number])[address] [place] [address]ODP/1.73 sq M.predicted among non-blacks MDRD (S/P/Bld) [Vol rate/Area]75 mL/min/{1.73_m2} Normal>59ProChristus Spohn Hospital – KlebergComment on above:Result Comment: Reported eGFR is based on the CKD-EPI 2020 equation that does not use a race coefficient.Performed By: #### DISTRICT BRANCH MANAGER ####[facility] ([id number])[address] [place] [address]FF CHEST 2 VWSon 64-15-2311BP CHEST 2 VWSXR CHEST 2 VWS Clinical history: Malignant neoplasm of right lower lobe. Shortness of breath and chest pain. Comparisons: 12/06/2022 through 10/24/2023. Findings: 2 views of the chest obtained. Changes of prior cardiac surgery and cardiac stents again noted. Heart size and pulmonary vasculature appear within normal limits. No pulmonary parenchymal consolidation. No pleural effusion nor pneumothorax. IMPRESSION: No evidence for acute cardiopulmonary disease. Finalized by Jose Philip MD on 12/03/2024 10:16 AMNormalTrinity Health System West CampusCBC AND AUTO DIFFon 30-55-9515ZKXLYYRT BASOPHIL0.0 X10E9/LNormal0.0-0.2 [facility] CampusComment on above:Performed By: #### CBCA, CMP, HA1C ####[facility] ([id number])[address] [address] [place] [address]AUCEGSKV NEUTROPHIL3.8 X10E9/LNormal1.5-6.6[facility] Comment on above:Performed By: #### CBCA, CMP, HA1C ####[facility] ([id number])[address], [address] [place] [address]Uaounbubg/100 WBC (Bld) 0.6 %NormalTrinity Health System West CampusComment on above:Performed By: #### CBCA, CMP, HA1C ####[facility] ([id number])[address], [address] [place] [address] 19[address]Gzgdxeqkegf (Bld) [#/Vol]0.2 10*3/uLNormal0.0-0.4Tr[facility] West CampusComment on above:Performed By: #### CBCA, CMP, HA1C ####[facility] ([id number])[address] [address] [place] [address] Eosinophils/100 WBC (Bld)3.4 %NormalProChristus Spohn Hospital – KlebergComment on above: Performed By: #### CBCA, CMP, HA1C ####[facility] ([id number])[address] [address]Optqeqkdwjv distribution width (RBC) [Ratio]13.3 %Bmkyfp83.5-15.0Tr[facility] West CampusComment on above:Performed By: #### CBCA, CMP, HA1C ####[facility] ([id number])[address] [address]Qvlsbeyher (Bld) [Volume fraction]41.5 %Baigtl64-63FjdYnpeqkChristus Spohn Hospital – KlebergComment on above:Performed By: #### CBCA, CMP, HA1C ####[facility] ([id number])[address] [address]Ugilxfcwtb (Bld) [Mass/Vol]14.2 g/dLNormal 13.0-17.0[facility] West CampusComment on above:Performed By: #### CBCA, CMP, HA1C ####[facility] ([id number])[address] [address]Jrzfbjqyogk (Bld) [#/Vol]1.5 10*3/uLNormal1.0-3.5PPremier Health Upper Valley Medical CenterComment on above:Performed By: #### CBCA, CMP, HA1C ####[facility] ([id number])[address] [address] Lymphocytes/100 WBC (Bld)23.1 %NormalProUniversity Hospitals Par[facility] Center HospitalComment on above: Performed By: #### CBCA, CMP, HA1C ####[facility] ([id number])[address], [address] [place] [address]QYQ (RBC) [Entitic mass] 30.6 baGyskxv10-35AuoQbukwj [facility] HospitalComment on above:Performed By: #### CBCA, CMP, HA1C ####[facility] ([id number])[address], [address] [place] [address]CRJV (RBC) [Mass/Vol]34.3 g/iKAumrkl67-94HjjYacnor [facility] HospitalComment on above:Performed By: #### CBCA, CMP, HA1C ####[facility] ([id number])[address], [address] [place] [address]ZND (RBC) [Entitic vol]89 zTOpwrsn67-862LjhFkwbij [facility] HospitalComment on above: Performed By: #### CBCA, CMP, HA1C ####[facility] ([id number])[address] [address] [place] [address]Qbuqznyjz (Bld) [#/Vol]0.8 10*3/uLNormal0-0.9[facility] HospitalComment on above:Performed By: #### CBCA, CMP, HA1C ####[facility] ([id number])[address], [address] [place] [address]Hshmsljmw/100 WBC (Bld)12.9 %NormalProUniversity Hospitals Parma Medical Center HospitalComment on above:Performed By: #### CBCA, CMP, HA1C ####[facility] ([id number])[address], [address] [place] [address] Neutrophils/100 WBC (Bld)60.0 %NormalProUniversity Hospitals Par[facility] HospitalComment on above: Performed By: #### CBCA, CMP, HA1C ####[facility] ([id number])[address] [address] [place] [address]Nhnpsyvh mean volume (Bld) [Entitic vol]8.6 fLNormal7-12[facility] HospitalComment on above: Performed By: #### CBCA, CMP, HA1C ####[facility] ([id number])[address], [address] [place] [address]Fqmfnfleu (Bld) [#/Vol]205 10*3/sVBfcolf933-063ZkmLausnc [facility] HospitalComment on above:Performed By: #### CBCA, CMP, HA1C ####[facility] ([id number])[address] [address]MID COUNT4.66 X10E12/LNormal4.10-5.70 ProMedicJohn C. Fremont HospitalComment on above:Performed By: #### CBCA, CMP, HA1C ####[facility] ([id number])[address] [address]FTG (Bld) [#/Vol]6.3 10*3/uLNormal4.0-11.0[facility] Comment on above:Performed By: #### CBCA, CMP, HA1C ####[facility] ([id number])[address] [address]BJU W Auto Differential panel (Bld)on 99-36-7076JPJBGFJP CSEKIEAY4XKEE HealthcareComment on above:PERFORMED AT [facility] [address], [place] [address]Jxyouebiv/100 WBC (Bld)0.6 %[facility] HealthcareEosinophils (Bld) [#/Vol]0.2 10*3/uLNOMS HealthcareEosinophils/100 WBC (Bld)3.4 %[facility] HealthcareErythrocyte distribution width (RBC) [Ratio]13.3 %11.5 - 15.0 %[facility] HealthcareHematocrit (Bld) [Volume fraction]41.5 %39 - 49 %[facility] HealthcareHemoglobin (Bld) [Mass/Vol] 14.2 g/dL13.0 - 17.0 g/dLNOOH HealthcareLymphocytes (Bld) [#/Vol]1.5 10*3/uLNOMS HealthcareLymphocytes/100 WBC (Bld)23.1 %[facility] HealthcareMCH (RBC) [Entitic mass]30.6 pg27 - 34 pgNOOH HealthcareMCHC (RBC) [Mass/Vol]34.3 g/dL32 - 36 g/dL [facility] HealthcareMCV (RBC) [Entitic vol]89 fL80 - 100 fLCENTRAL VALLEY MEDICAL CENTER HealthcareMonocytes (Bld) [#/Vol]0.8 10*3/uLNOMS HealthcareMonocytes/100 WBC (Bld)12.9 %[facility] HealthcareNeutrophils (Bld) [#/Vol]3.8 10*3/uLNOMS HealthcareNeutrophils/100 WBC (Bld)60 %[facility] HealthcarePlatelet mean volume (Bld) [Entitic vol]8.6 fL7 - 12 fL [facility] HealthcarePlatelets (Bld) [#/Vol]205 10*3/uLCENTRAL VALLEY MEDICAL CENTER HealthcareRBC (Bld) [#/Vol]4.66 10*6/uLNOMS HealthcareWBC corrected for nucl RBC Auto (Bld) [#/Vol] 6.3NOHarry S. Truman Memorial [facility] HealthcareCOMPREHENSIVE METABOLIC PANELon 12-02-2024 Albumin [Mass/Vol]4.3 g/dLNormal3.2-5.3[facility] HospitalComment on above:Performed By: #### CBCA, CMP, HA1C ####[facility] ([id number])[address] [facility], [address] [place] [address]ZXV [Catalytic activity/Vol]78 U/GIcqwif69-551LamNsabmh [facility] HospitalComment on above: Performed By: #### CBCA, CMP, HA1C ####[facility] ([id number])[address], [place] [address]MVZ [Catalytic activity/Vol]31 U/LNormal0-40ProChristus Spohn Hospital – KlebergComment on above: Performed By: #### CBCJoan CMP, HA1C ####[facility] ([id number])[address], [place] [address]Lerxf gap [Moles/Vol]9 mmol/LNormal5-15ProChrist[facility] Spohn Hospital – KlebergComment on above:Performed By: #### CBCJoan CMP, HA1C ####[facility] ([id number])[address], [place] [address]FMT [Catalytic activity/Vol]24 U/LNormal0-41ProChristus Spohn Hospital – KlebergComment on above:Performed By: #### MARTA CMP, HA1C ####[facility] ([id number])[address], [place] [address] Bilirubin [Mass/Vol]0.6 mg/dLNormal0.3-1.2PPremier Health Upper Valley Medical CenterComment on above:Performed By: #### MARTA CMP, HA1C ####[facility] ([id number])[address], [place] [address]Pcyidqj [Mass/Vol]9.3 mg/dL Normal8.5-10.5PPremier Health Upper Valley Medical CenterComment on above:Performed By: #### CBCJoan CMP, HA1C ####[facility] ([id number])[address], [place] [address]Ehqngynf [Moles/Vol]100 mmol/IAhkxds47-263WmuLtteavChristus Spohn Hospital – KlebergComment on above:Performed By: #### CBCA CMP, HA1C ####[facility] ([id number])[address], [place] [address]OH[address] [Moles/Vol]28 mmol/CPycmgz27-24UjsXouhrh [facility] HospitalComment on above: Performed By: #### JANET LOZANO, HA1C ####[facility] ([id number])[address] [address] [place] [address]Zjigngdbey [Mass/Vol]1.12 mg/dLNormal0.60-1.30ProChristus Spohn Hospital – KlebergComment on above:Result Comment: METHOD TRACEABLE TO IDOH STANDARDPerformed By: #### JANET LOZANO, HA1C ####[facility] ([id number])[address] [address] [place] [address] GFR/1.73 sq M.predicted among non-blacks MDRD (S/P/Bld) [Vol rate/Area]73 mL/min/{1.73_m2}Normal>59ProChristus Spohn Hospital – KlebergComment on above:Result Comment: Reported eGFR is based on the CKD-EPI 2020 equation that does not use a race coefficient.Performed By: #### JANET LOZANO, HA1C ####[facility] ([id number])[address] [address] [place] [address] Glucose [Mass/Vol]151 mg/wJGzre95-47EceBsxrylChristus Spohn Hospital – KlebergComment on above: Performed By: #### JANET LOZANO, HA1C ####[facility] ([id number])[address] [address] [place] [address]Pctkwhrbc [Moles/Vol]4.4 mmol/LNormal3.5-5.0ProChristus Spohn Hospital – KlebergComment on above:Performed By: #### JANET LOZANO, HA1C ####[facility] ([id number])[address] [address]Fveavrs [Mass/Vol]6.8 g/dLNormal6.0-8.0ProChrist[facility] Sp[facility] Hospital – KlebergComment on above:Performed By: #### JANET LOZANO, HA1C ####[facility] ([id number])[address] [address], [place] [address] Sodium [Moles/Vol]137 mmol/XZlofgi699-980NmtXmcrmr [facility] HospitalComment on above:Performed By: #### JANET LOZANO, HA1C ####[facility] ([id number])[address] [address], [place] [address]Jhms nitrogen [Mass/Vol]11 mg/dLNormal5-27ProChristus Sp[facility] Hospital – KlebergComment on above:Performed By: #### CBCJANET Franco, HA1C ####[facility] ([id number])[address] [address]MBZ A1C (GLYCO-HGB)on 28-87-4722Ildpjmc [Mass/Vol]206 mg/dLNormalProChristus Spohn Hospital – KlebergComment on above:Performed By: #### JANET LOZANO, HA1C ####[facility] ([id number])[address] [address]PmI7f (Bld) [Mass fraction]8.8 %High4.4-5.6[facility] CampusComment on above:Result Comment: NOTE ADA Guidelines Result HgbA1c Normal : less than 5.7 % Prediabetes : 5.7 % to 6.4 % Diabetes : > 6.4 % Use with caution in patients with abnormal hemoglobin variants as the half-life of red blood cells and in vivo glycation rates are affected.Performed By: #### MARTA, JANET, HA1C ####[facility] ([id number])[address] [address]Ucrynen Glucometer (BldC) [Mass/Vol]Ordered By: Lacey Altamirano on 72-20-2212Fmbvtcn [Mass/Vol]Capillary blood glucose measurement by glucometer (mass/volume)[facility] Health SystemComment on above:Random Glucose Reference Range is dependent on time and content of last meal. Glucose of more than 200 mg/dL in a nonstressed, ambulatory subject supports the diagnosis of Diabetes Mellitus.Glucose Poct Glucometerson 72-59-1214Edcrzpo [Mass/Vol]148 mg/dLNoFormerly Heritage [facility], [facility] Physician GroupComment on above:Result Comment: Random Glucose Reference Range is dependent on time and content of last meal. Glucose of more than 200 mg/dL in a nonstressed, ambulatory subject supports the diagnosis of Diabetes Mellitus. PERFORMED BY: [facility] [address] [place] [address] PATHOLOGIST MANAGER BANK MAIDA FERNANDEZ M.D.Performed By: #### GLULS #### Point of Care testing ,[facility] 10-28-2024L Specimen: [id number] Received: 10/30/24 Status: VIOLET Ranjit Num: [id number] Spec Type: Surgical Subm Dr: Lacey Altamirano, Tissues: A Small Intestine - Biopsy/Polyp (SMALL BOWEL BX R/O CELIAC) B Colon Biopsy (NODULE BX IN DOUDNAL BULB) C GASTRIC FOR HP (GASTRIC BX R/O H PYLORI) D Esophagus Biopsy (GE JUNCTION BX R/O ESPHAGITI) Procedures: HE/8, Gross/Micro L4/4, H PYLORI Age/ Patient Sex Location Account Attending Physician Zaid Mello 64/M [id number] Lacey Altamirano, SPEC NUM: [id number] RECD: 10/30/24 STATUS: VIOLET CARDENAS NUM: [id number] JANAE: 10/28/24-[facility] DR: Lacey Altamirano DO ENTERED: 10/30/[address] [facility] [address]: SHAHIDA TYPE: Surgical DEPT: S ENTERED BY: [id number] RECV BY: [id number] ORDERED: HE/8, Gross/Micro L4/4, H PYLORI ORDERED: HE/8, Gross/Micro L4/4, H PYLORI Pathological Diagnosis A. Small bowel (mucosal biopsy): Within normal limits No features of celiac disease or dysplasia seen B. Duodenal bulb, nodule (mucosal biopsy): Focal mild Carolyn gland hyperplasia No active inflammation, features of celiac disease, or dysplasia seen C. Stomach (mucosal biopsy): Fundic mucosa, within normal limits No Helicobacter pylori or dysplasia seen See microscopic description D. GE junction (mucosal biopsy): GE junctional mucosa with mild reactive changes No active inflammation, distinctive-type metaplastic glandular epithelium, or dysplasia seen Specimen: [id number] Received: 10/30/24 Status: VIOLET Cardenas Num: [id number] Spec Type: Surgical Subm Dr: Lacey lAtamirano, Tissues: A Small Intestine - Biopsy/Polyp (SMALL BOWEL BX R/O CELIAC) B Colon Biopsy (NODULE BX IN DOUDNAL BULB) C GASTRIC FOR HP (GASTRIC BX R/O H PYLORI) D Esophagus Biopsy (GE JUNCTION BX R/O ESPHAGITI) Procedures: HE/8, Gross/Micro L4/4, H PYLORI Patient: Zaid Mello [id number] (Continued) Specimen: [id number] Received: 10/30/24 (Continued) Signed (signature on file) Ottoniel Mayers Jr., MD 10/31/24 1118 Specimen: - Received: 10/30/24 Status: VIOLET Cardenas Num: [id number] Spec Type: Surgical Subm Dr: Lacey Altamirano, Tissues: A Small Intestine - Biopsy/Polyp (SMALL BOWEL BX R/O CELIAC) B Colon Biopsy (NODULE BX IN DOUDNAL BULB) C GASTRIC FOR HP (GASTRIC BX R/O H PYLORI) D Esophagus Biopsy (GE JUNCTION BX R/O ESPHAGITI) Procedures: HE/8, Gross/Micro L4/4, H PYLORI Patient: Zaid Mello [id number] (Continued) Specimen: [id number] Received: 10/30/24 (Continued) Clinical Information GERD periumbilical abdominal pain. Part A rule out celiac, Part B nodule biopsy in duodenal bulb, part C rule out H. pylori, and part D rule out esophagitis Gross Description Part A is received in formalin labeled with the patients name, date of , and small bowel BX is a cardona-heller, focally erythematous, friable, 0.4 cm in greatest dimension tissue bit. The specimen is entirely submitted in a single cassette. (1, ns, S25-1 A) Part B is received in formalin labeled with the patients name, date of , and duodenal bulb BX are 2 cardona-heller, focally erythematous, friable, 0.1 and 0.3 cm in greatest dimension tissue bits. The specimen is entirely submitted in a single cassette. (1, ns, S25-1 B) Part C is received in formalin labeled with the patients name, date of , and gastric BX is a cardona-heller, focally erythematous, friable, 0.3 cm in greatest dimension tissue bit. The specimen is entirely submitted in a single cassette. (1, ns, S25-1 C) JG Part D is received in formalin labeled with the patients name, date of , and GE junction BX are 2 pale heller, focally erythematous, feathery, 0.3 cm each in greatest dimension tissue bits. The specimen is entirely submitted in a single cassette. (1, ns, S25-1 D) J Microscopic Description Microscopic examination performed Immunoperoxidase stain performed on formalin fixed and paraffin-embedded tissue sections (block B1) for Helicobact (more content not included)...NormalThe Atrium Health Physician GroupEMG 1 Extremeityon 86-09-8471GSHY HealthcareNVC 5-6 Nerveson 62-12-9663DZQI HealthcareNo Panel Informationon 35-42-5363UtrhfqqALONZO Perez 10/07/2024 12:32 PM L Inj/Asp: L subacromial bursa on 10/07/2024 11:41 AM Indications: pain Details: 21 G needle, posterior approach Medications: 40 mg methylPREDNISolone acetate 40 MG/ML Outcome: tolerated well, no immediate complications Utilizing aseptic technique with universal precautions . Pt given injection Left Shoulder SA space ( code 63285 LT) Procedure, treatment alternatives, risks and benefits explained, specific risks discussed. Consent was given by the patient. Patient was prepped and draped in the usual sterile fashion. [facility] 2 VWSon 32-47-4345QW SHOULDER LT MIN 2 VWSXR SHOULDER LT MIN 2 VWS History: Pain Exam/Technique: AP Grashey and scapular Y views of the left shoulder were obtained. Comparison: None Findings: There are osteoarthritic changes in the acromioclavicular joint. There is no evidence alejandra acute osseous abnormality. No dislocation is demonstrated. 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 Otherwise normal left shoulder. Finalized by Isaías Beck MD on 09/30/2024 11:58 AMNormalProMedica Petaluma Valley HospitalCopper [Mass/Vol]on 99-38-5303Pkkrjk, S74 mcg/wQMbnssf25-002AfaFipcdl Fremont HospitalComment on above:Result Comment: NOTE ADDITIONAL INFORMATION This test was developed and its performance characteristics determined by [facility] in a manner consistent with CLIA requirements. This test has not been cleared or approved by the U.S. Food and Drug Administration. Test Performed by: [facility] [address] [place] [address] Wholesaler: Andrew Morin Ph.D.; CLIA# [id number] By: #### SARAN, 3016-3, 2132-06, JAMES, 47611-8 #### [facility] ([id number]) [address], [address] [place] [address] #### 5631-7, 15515-7 #### [facility] ([id number]) [address] [place] [address] 70392XGL A1C (GLYCO-HGB)on 05-22-2394Wrfgeor [Mass/Vol]209 mg/dL NormalProChristus Spohn Hospital – KlebergComment on above:Performed By: #### SARAN, 3016-3, 2132-06, HA1C, 71557-3 #### [facility] ([id number]) [address], [address] [place] [address] #### 5631-7, 19239-3 #### [facility] ([id number]) [address] [place], [place] [address]AzP5j (Bld) [Mass fraction]8.9 %High4.4-5.6ProChristus Spohn Hospital – KlebergComment on above:Result Comment: NOTE ADA Guidelines Result HgbA1c Normal : less than 5.7 % Prediabetes : 5.7 % to 6.4 % Diabetes : > 6.4 % Use with caution in patients with abnormal hemoglobin variants as the half-life of red blood cells and in vivo glycation rates are affected.Performed By: #### SARAN, 3015-3, 2132-06, JAMES, 54512-0 #### [facility] ([id number]) [address] [facility], [address] [address] #### 5631-7, 39118-9 #### [facility] ([id number]) [address] [place] [address] 40296ZGVMV PROTEIN ELECTROPHORESISon 62-59-1117Gtxbyxj [Mass/Vol]4.1 g/dLNormal3.4-5.3PPremier Health Upper Valley Medical CenterComment on above:Performed By: #### SARAN, 3015-12, 2132-06, JAMES, 77086-3 #### [facility] ([id number]) 0 [facility], [address] [address] #### 5631-7, 88628-5 #### [facility] ([id number]) [address] [place] [address]CGNHM 1 GLOBULIN0.2 g/dLNormal0.1-0.4[facility] Comment on above:Performed By: #### SARAN, 3015-3, 2132-06, JAMES, 29368-8 #### [facility] ([id number]) [address] [facility], [address] [place] [address] #### 5631-7, 00736-1 #### [facility] ([id number]) [address] [place] [address]7214GXZQC 2 GLOBULIN0.6 g/dLNormal0.4-1.1PPremier Health Upper Valley Medical Center Comment on above:Performed By: #### SARAN, 3015-3, 2132-06, JAMES, 99768-5 #### [facility] ([id number]) [address] [facility], [address] [place] [address] #### 5631-7, 25399-5 #### [facility] ([id number]) [address] [place] [address] 79[address]TNWV GLOBULIN0.8 g/dLNormal0.5-1.2PPremier Health Upper Valley Medical Center Comment on above:Performed By: #### SARAN, 3015-12, 2132-06, JAMES, 48645-9 #### [facility] ([id number]) [address] [facility] [address], [address] [place] [address] #### 5631-7, 14620-9 #### [facility] ([id number]) [address] [place] [address] 14106IBHDD GLOBULIN1.0 g/dLNormal0.5-1.6[facility] Comment on above:Performed By: #### SARAN, 3015-12, 2132-06, JAMES, 03778-8 #### [facility] ([id number]) [address] [facility] [address], [address] [place] [address] #### 5631-7, 98106-7 #### [facility] ([id number]) [address] [place] [address]WULU. ELECTROPHORESIS INTERPUnremarkable protein distribution, no monoclonal bands.NormalProChristus Spohn Hospital – KlebergComment on above:Performed By: #### SARAN, 3015-12, 2132-06, JAMES, 32259-4 #### [facility] ([id number]) [address] [facility] [address], [address] [place] [address] #### 5631-7, 74248-1 #### [facility] ([id number]) [address] [place] [address] 93[address]Hiolxws [Mass/Vol]6.6 g/dLNormal6.0-8.0ProChristus Spohn Hospital – KlebergComment on above:Performed By: #### SARAN, 3015-12, 2132-06, HA, 52089-9 #### [facility] ([id number]) [address] [place] [address], [address] [place] [address] #### 5631-7, 72914-8 #### [facility] ([id number]) [address] [place] [address]G. pallidum IgG+IgM IA Ql (S)on 50-88-7263Qyccozgy Total<0.2 Normal0.0-0.8ProChristus Spohn Hospital – KlebergComment on above:Result Comment: NON REACTIVE No serologic evidence of infection to Treponema pallidum (syphilis). Repeat testing may be considered in patients with suspected acute or primary syphilis in 2 to 4 weeks.Performed By: #### SARAN, 3015-12, 2132-06, [facility], 22445-7 #### [facility] ([id number]) [address] [place] [address], [address] [place] [address] #### 5631-7, 45419-9 #### [facility] ([id number]) [address] [place] [address]JCA Qnon 61-86-5917OGT3.67 uIU/mLNormal0.49-4.67ProChristus Spohn Hospital – KlebergComment on above:Performed By: #### SARAN, 3015-12, 2132-06, [facility], 92051-1 #### [facility] ([id number]) [address] [place] [address], [address] [place] [address] #### 5631-7, 41689-0 #### [facility] ([id number]) [address] [place] [address] 48336EEAUSVY B12on 32-93-4189Zddsxfkab (Vitamin B12) [Mass/Vol]423 pg/eRFlutxe528-490AhtBafbqsPremier Health Upper Valley Medical CenterComment on above:Performed By: #### SARAN, 3015-12, 2132-06, [facility], 72263-6 #### [facility] ([id number]) [address] [place] [address], [address] [place] [address] #### 5631-7, 91060-5 #### [facility] ([id number]) [address] [place] [address] 03198Svaiiue B6 and metabolite panelon 04-47-9555Pohyihsnv 5- Phosphate (PLP), P5 mcg/LNormal5-50ProCHRISTUS Santa Rosa Hospital – Medical Centerment on above: Result Comment: NOTE ADDITIONAL INFORMATION This test was developed and its performance characteristics determined by [facility] in a manner consistent with CLIA requirements. This test has not been cleared or approved by the U.S. Food and Drug Administration.Performed By: #### SARAN, 3015-12, 2132-06, [facility], 77046-1 #### [facility] ([id number]) [address] [place] [address], [address] [place] [address] #### 5631-7, 37888-2 #### [facility] ([id number]) [address] [place] [address]Knpigerkg Acid (PA), P5 mcg/LNormal3-30ProCu[facility] on above:Result Comment: NOTE ADDITIONAL INFORMATION This test was developed and its performance characteristics determined by [facility] in a manner consistent with CLIA requirements. This test has not been cleared or approved by the U.S. Food and Drug Administration. Test Performed by: [facility] [address] [place] [address] Wholesaler: Andrew Morin Ph.D.; CLIA# [id number] By: #### SARAN, 3, 2132-06, HA1C, 50206-5 #### [facility] ([id number]) [address] [facility], [address] [place] [address] #### 5631-7, 07834-3 #### [facility] ([id number]) [address] [facility]LO[address] [place], [place] [address]Laycfedttf (Bld) [Mass/Vol]Ordered By: Natty Mckeon on 58-67-6045Vfhtnsmdmq [Mass/Vol]Whole blood creatinine measurement0.6-1.3 Trinity Health SystemComment on above:ER/ESD physician is notified/shown all ISTAT results.Critical values may be confirmed by laboratory testing ifdeemed necessary by ER attending doctor.ISTAT XRay CREon 08-23-2024 ISTAT GFR> 60.0NoFormerly [facility], [facility] Physician GroupComment on above:Result Comment: PERFORMED BY: [place] [address] PATHOLOGIST MANAGER BANK SUNNY RANDALL M.D.Performed By: #### ISCRE #### [place] [address] USAMR lumbar spine wo/w conon 48-62-9413UU lumbar spine wo/w [facility] [place] [address] [place], [place] [address] MRI Report Signed Patient: Zaid Mello MR#: [id number] : 1960 Acct:[id number] Age/Sex: 63 / M ADM Date: 08/23/24 Loc: MR Room: Type: [facility] Attending Dr: Natty Mckeon DO Copies to: Natty Mckeon DO Ordering Provider: Natty Mckeon DO Date of Service: 08/23/24 MR/MR lumbar spine wo/w con: M51.36,R93.7,M43.06 MR lumbar spine wo/w con 08/23/2024 6:49 AM SIGNS AND SYMPTOMS: Low back pain radiating into lower extremities, right greater than left PROTOCOL: Multiplanar multisequence MR images of the lumbar spine with and without IV contrast CONTRAST: 06/09/2024 COMPARISON: None. FINDINGS: The bones of the lumbar spine are in anatomic alignment. There is partial sacralization of the L5 vertebral body similar to the prior exam. There is a rudimentary L5-S1 intervertebral disc. There is preservation of vertebral body heights. There is moderate disc height loss at L1-L2, L2-L3, and L4-5. There is Schmorl's node formation in the endplates at L1, L2, and L3 with Modic type I endplate edema at L2-L3. There is Modic type II fatty endplate degenerative change at L1-L2. Benign- appearing hemangiomas are noted at T11 and L2. The conus terminates at the mid T12 vertebral body level. No epidural or paraspinous fluid collection is appreciated. There is a simple cyst in the left renal cortex requiring no further follow-up. At T12-L1: There is a normal disc, central canal, and neural foramen. At L1-L2: There is a broad-based disc bulge with facet hypertrophy. There is mild spinal canal stenosis with mild right and moderate left neural foraminal stenosis. At L2-L3: There is a circumferential disc bulge with facet hypertrophy and ligamentum flavum thickening. There is moderate spinal canal stenosis with moderate to severe left and mild right neural foraminal narrowing. Is mild mass effect on the exiting left L2 nerve roots. This is similar to the prior exam. At L3-L4: There is a broad-based disc bulge with facet hypertrophy and ligament flavum thickening. There is a small right-sided facet effusion. There is mild to moderate spinal canal stenosis with moderate bilateral neural foraminal stenosis similar to the prior exam. At L4-L5: There is a broad-based disc bulge with facet hypertrophy and ligament flavum thickening. There is endplate osteophyte formation contributing to mild left and moderate to severe right neural foraminal narrowing similar to the prior exam. At L5-S1: There is a rudimentary disc. There is facet hypertrophy. There is mild right-sided neural foraminal stenosis with mild spinal canal narrowing. MR/MR lumbar spine wo/w con IMPRESSION: No mass or abnormal postcontrast enhancement. At L2-L3: There is a circumferential disc bulge with facet hypertrophy and ligamentum flavum thickening. There is moderate spinal canal stenosis with moderate to severe left and mild right neural foraminal narrowing. Is mild mass effect on the exiting left L2 nerve roots. This is similar to the prior exam. At L3-L4: There is a broad-based disc bulge with facet hypertrophy and ligament flavum thickening. There is a small right-sided facet effusion. There is mild to moderate spinal canal stenosis with moderate bilateral neural foraminal stenosis similar to the prior exam. At L4-L5: There is a broad-based disc bulge with facet hypertrophy and ligament flavum thickening. There is endplate osteophyte formation contributing to mild left and moderate to severe right neural foraminal narrowing similar to the prior exam. Impression dictated by: Guru Burns M.D.08/23/2024 11:01 AM Dictation Location: [place] [address] Transcribed By: IGOR 08/23/24 1101 Dictated By: Guru Burns II, MD 08/23/24 1052 Signed By: 08/23/24 1101NoFormerly [facility], [facility] Physician GroupNo Panel InformationOrdered By: Natty Mckeon on 98-80-9574Dhowgyd Estimated GFR (eGFR)> 60.0[facility] SystemWhole blood creatinine measurementOrdered By: Natty Mckeon on 30-40-1857Fcxfgbyvnd [Mass/Vol]1.1 mg/dLNormal0.6-1.3FCleveland Clinic Fairview HospitalComment on above:ER/ESD physician is notified/shown all ISTAT results.Critical values may be confirmed by laboratorytesting ifdeemed necessary by ER attending doctor.Result Comment: ER/ESD physician is notified/shown all ISTAT results. Critical values may be confirmed by laboratory testing if deemed necessary by ER attending doctor.Performed By: #### ISCRE #### [facility] [address] [place] [address] USACT ABDOMEN AND PELVIS W CONTon 43-06-9775ML ABDOMEN AND PELVIS W CONTCT ABDOMEN AND PELVIS W CONT CT ABDOMEN AND PELVIS W CONT HISTORY: 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, surveillance for metastatic disease. Assess treatment response. COMPARISON: CT abdomen pelvis 04/02/2023 TECHNIQUE: CT images of abdomen and pelvis obtained following administration of contrast. Automatedexposure control was utilized. All CT scans at this facility use dose modulation, iterative reconstruction, and/or weight based dosing when appropriate to reduce radiation dose to as low as reasonably achievable. CONTRAST: Oral: None IV: 100 mL Omnipaque 300 FINDINGS: LOWER CHEST: Postprocedural changes in the inferomedial right lung, similar prior imaging. Refer toseparately dictated CT chest. LIVER AND BILIARY: Diffuse hepatic steatosis. Unchanged simple hepatic cyst in the right hepatic lobe which requires no follow-up. Smaller subcentimeter hypoattenuating lesion in the right hepatic lobe (series 6, image 18 is unchanged from prior. Portal venous system is patent. Gallbladder is unrema rkable. PANCREAS: Unremarkable SPLEEN: Sequelae of splenic granulomatous disease. ADRENALS: No adrenal mass or lesion. KIDNEYS, URETERS, AND BLADDER: Exophytic simple renal cyst superior pole left kidney requires no follow-up. No collecting system dilatation. 2 mm right and 2 mm left nonobstructing renal calculi. Ureters are unremarkable appearing. Redemonstrated 1.1 cm bladder calculus.. GI TRACT AND PERITONEUM: The appendix and terminal ileum are unremarkable appearing. There is no evidence of bowel obstruction. No pericolonic fat stranding or free intraperitoneal gas. Colonic diverticulosis. Fat-containing periumbilical hernia. VASCULATURE: No acute findings LYMPH NODES: No new or enlarging lymph nodes. REPRODUCTIVE ORGANS: Prominent heterogeneous appearing prostate gland with intravesicular prostaticprotrusion. MUSCULOSKELETAL: Degenerative endplate changes most notably in the mid lumbar spine. IMPRESSION: * No evidence of new/emerging abdominopelvic metastatic disease. * Diffuse hepatic steatosis. * Nonobstructing bilateral nephrolithiasis with unchanged nonobstructing bladder calculus. * Prominent heterogeneous appearance of the prostate gland. Recommend correlation with PSA if not recently performed. Approved by Resident Davis Alfaro DO on 08/12/2024 10:17 AM Davis Mata MD have personally reviewed the image(s) and agree with and/or edited the report Finalized by Davis Vaughan MD on 08/12/2024 10:52 AMNormalProMedica Petaluma Valley HospitalCT CHEST W CONTon 17-87-8070FN CHEST W CONTCT CHEST W CONT CT CHEST W CONT HISTORY: Malignant neoplasm the proximal right lower lobe, right lower lobe wedge resection COMPARISON: CT chest 12/31/2023 and 10/25/2021. TECHNIQUE: Multidetector axial CT Chest performed with IV contrast. Sagittal and coronal 2-D reconstructed images were also obtained. Automated exposure control was utilized. All CT scans at this facility use dose modulation, iterative reconstruction, and/or weight based dosing when appropriate to reduce radiation dose to as low as reasonably achievable. FINDINGS: The thyroid is symmetric in attenuation. The esophagus is nondilated. The adrenal are not enlarged. No abnormal lymphadenopathy. Mediastinal surgical clips and sternotomy wires. The aorta is nonaneurysmal. The large vessel pulmonary arteries are patent. There is no pericardial effusion. The heart is not enlarged. There are heavy coronary artery calcifications in coronary artery bypass graft. Stable postsurgical changes status post right lower lobe wedge resection which includes thickening and scarring of the parenchymal in the posterior medial aspect of the right lung. the trachea and bronchi are patent without filling defects. Calcified hilar lymph nodes. The lungs are clear without consolidation, pleural effusion, or pneumothorax. Pulmonary nodule: Small to mm left upper lobe solid pulmonary nodule is seen on series 2 image 29, stable compared toCT scan 10/25/2021. No acute osseous abnormality. Diffuse idiopathic skeletal hyperostosis. CT abdomen pelvis read separately. IMPRESSION: 1. Small to mm left upper lobe solid pulmonary nodule which appears stable dating back to 10/25/2021 consistent with nonaggressive/benign finding. 2. Stable postsurgical changes in the right hemithorax. Approved by Jonelle Jessica DO on 08/12/2024 9:16 AM I, Jose Philip MD have personally reviewed the image(s) and agree with and/or edited the report Finalized by Jose Philip MD on 08/12/2024 10:00 AMNormalProMedica Petaluma Valley HospitalEMG 2 Extremitieson 90-42-5438Aqpcjvwdmgbapc, severeNOMS HealthcareNOMS HealthcareNVC 9-10 Nerveson 24-55-8309Lavcxctaxdlbtv, severeNOMS HealthcareNOMS HealthcareTBH CREATININEon 43-19-7630Rommfydppp [Mass/Vol]0.95 mg/dL0.70 - 1.30 mg/dLNOMS HealthcareGFR/1.73 sq M.predicted CKD-EPI (S/P/Bld) [Vol rate/Area]>60 60 - PINFNOMS HealthcareTBH EGFR-NON AF MONGOLIAN>6060 - [facility] LUMBAR SPINE WO CONon 56-73-4185[address] [address] Magnetic Resonance Report Signed Patient: ZAID MELLO MR#: [id number] : 1960 Acct:[id number] Age/Sex: 63 / M ADM Date: 06/09/24 Loc: MRI Attending Dr: Shaikh Lexi Senior Ordering Physician: Shaikh Nadeen Elliott Date of Service: 06/09/24 Procedure(s): MR lumbar spine wo con Accession Number(s): [id number] cc: Shaikh Nadeen Elliott [address] [address] Patient Name: ZAID MELLO MRN: [id number] date: 1960 Sex: M Assigned Patient Location: MRI Current Patient Location: Accession/Order Number: [id number] Exam Date: 06/09/2024 12:19 Report Date: 06/10/2024 15:52 At the request of: SHAIKH LEXI Procedure: MR lumbar spine wo con EXAMINATION: MR lumbar spine wo con HISTORY: Low Back Pain M54.50 COMPARISON: No relevant comparison available. TECHNIQUE: A variety of imaging planes and parameters were utilized for visualization of suspected pathology. FINDINGS: For the purposes of numbering, sagittal T2 image # 8 extends from the 11th vertebral body superiorly to the S3 level inferiorly. PARASPINAL AREA: Normal with no visible mass. BONES: Normal alignment with no acute fracture or spondylolisthesis. Decreased T1 increased T2 and STIR pulse sequence signal lower half of the L2 and upper half of the L3 vertebral bodies likely Modic inflammatory change. CORD/CAUDA EQUINA: Normal caliber, contour, and signal intensity. DISC LEVELS: 12-L1: Disc space narrowing. No disc bulge or herniation. No central or foraminal stenosis L1-L2: Moderate to severe disc space narrowing and disc desiccation. Left foraminal disc protrusion. No central canal or foraminal stenosis L2-L3: Disc space narrowing and disc desiccation. Mild diffuse disc/osteophyte complex. Moderate ligamentum flavum hypertrophy and facet osteoarthropathy. Mild trefoil narrowing of the central canal. No right foraminal stenosis. Mild narrowing of the left neural foramen L3-L4: Disc desiccation. Mild diffuse disc/osteophyte complex. Moderate ligamentum flavum hypertrophy and facet osteoarthropathy. Mild trefoil narrowing of the central canal. No foraminal stenosis L4-L5: Disc space narrowing and disc desiccation. Moderate diffuse disc/osteophyte complex. Soft tissue signal right neural foramen best seen on sagittal image #9, axial image #12. No central canal or left foraminal stenosis. L5-S1: Disc space narrowing. No disc bulge or herniation or central or foraminal stenosis MR/MR lumbar spine wo con IMPRESSION: Moderate degenerative changes with central and foraminal stenosis detailed above Area of soft tissue signal in the right L4-L5 neural foramen, postcontrast imaging recommended to evaluate enhancement characteristics Electronically authenticated by: ISAÍAS DIXON Date: 06/10/2024 15:52 Dictated By: Isaías Dixon M.D. Signed By: 06/10/24 1555 DD/ 1552 TD/TT: Legal Technician:TBHRadiology, Radiologist, - 06/10/2024 [place] [address] Magnetic Resonance Report Signed Patient: ZAID MELLO MR#: [id number] : 1960 Acct:[id number] Age/Sex: 63 / M ADM Date: 06/09/24 Loc: MRI Attending Dr: Shaikh Lexi Senior Ordering Physician: Shaikh Nadeen Elliott Date of Service: 06/09/24 Procedure(s): MR lumbar spine wo con Accession Number(s): [id number] cc: Shaikh Nadeen Elliott [place] [id number] Patient Name: ZAID MELLO MRN: [facility]:[id number] date: 1960 Sex: M Assigned Patient Location: MRI Current Patient Location: Accession/Order Number: [id number] Exam Date: 06/09/2024 12:19 Report Date: 06/10/2024 15:52 At the request of: SHAIKH LEXI Procedure: MR lumbar spine wo con EXAMINATION: MR lumbar spine wo con HISTORY: Low Back Pain M54.50 COMPARISON: No relevant comparison available. TECHNIQUE: A variety of imaging planes and parameters were utilized for visualization of suspected pathology. FINDINGS: For the purposes of numbering, sagittal T2 image # 8 extends from the 11th vertebral body superiorly to the S3 level inferiorly. PARASPINAL AREA: Normal with no visible mass. BONES: Normal alignment with no acute fracture or spondylolisthesis. Decreased T1 increased T2 and STIR pulse sequence signal lower half of the L2 and upper half of the L3 vertebral bodies likely Modic inflammatory change. CORD/CAUDA EQUINA: Normal caliber, contour, and signal intensity. DISC LEVELS: 12-L1: Disc space narrowing. No disc bulge or herniation. No central or foraminal stenosis L1-L2: Moderate to severe disc space narrowing and disc desiccation. Left foraminal disc protrusion. No central canal or foraminal stenosis L2-L3: Disc space narrowing and disc desiccation. Mild diffuse disc/osteophyte complex. Moderate ligamentum flavum hypertrophy and facet osteoarthropathy. Mild trefoil narrowing of the central canal. No right foraminal stenosis. Mild narrowing of the left neural foramen L3-L4: Disc desiccation. Mild diffuse disc/osteophyte complex. Moderate ligamentum flavum hypertrophy and facet osteoarthropathy. Mild trefoil narrowing of the central canal. No foraminal stenosis L4-L5: Disc space narrowing and disc desiccation. Moderate diffuse disc/osteophyte complex. Soft tissue signal right neural foramen best seen on sagittal image #9, axial image #12. No central canal or left foraminal stenosis. L5-S1: Disc space narrowing. No disc bulge or herniation or central or foraminal stenosis MR/MR lumbar spine wo con IMPRESSION: Moderate degenerative changes with central and foraminal stenosis detailed above Area of soft tissue signal in the right L4-L5 neural foramen, postcontrast imaging recommended to evaluate enhancement characteristics Electronically authenticated by: ISAÍAS DIXON Date: 06/10/2024 15:52 Dictated By: Isaías Dixon M.D. Signed By: 06/10/24 1555 DD/ 1552 TD/TT: Legal Technician: HOLLIE MelgarRadiology Study observation (narrative)[facility] LUMBAR SPINE WO CONOrdered By: Radiologist Radiology on 73-99-7061GOLIFulton [facility] Work Phone: Measure post void residualon 66-01-7384Zvfjnp644ti [facility] Medical CenteredicM Health Fair[facility] SystemProMedica Health SystemUS RIGHT UPPER QUADRANTon 19-33-3658[place], [place] [address] Ultrasound Report Signed Patient: ZAID MELLO MR#: [id number] : 1960 Acct:[id number] Age/Sex: 63 / M ADM Date: 01/08/24 Loc: US Attending Dr: Shaikh Lexi Senior Ordering Physician: Shaikh Nadeen Elliott Date of Service: 01/08/24 Procedure(s): US right upper quadrant Accession Number(s): [id number] cc: Shaikh Nadeen Elliott [place] [id number] Patient Name: ZAID MELLO MRN: [id number] date: 1960 Sex: M Assigned Patient Location: US Current Patient Location: US Accession/Order Number: [id number] Exam Date: 01/08/2024 09:05 Report Date: 01/08/2024 10:15 At the request of: SHAIKH LEXI Procedure: US right upper quadrant EXAM: US right upper quadrant HISTORY: Abnormal CT Of Liver R93.2 COMPARISON: 05/30/2022 TECHNIQUE: Grayscale, color and Doppler FINDINGS: The liver appears normal in size and contour measuring 16.6 cm in length. Diffuse increase in hepatic echotexture. Identified in the right hepatic lobe is a 6.5 x 6.5 x 5.8 cm area of anechoic echogenicity with a few scattered internal low-level echoes. Hepatopedal flow in the main portal vein which measures 30 cm/s. The pancreas is poorly visualized due to bowel gas The gallbladder is normal in size. The wall measures 1.6 mm. Negative sonographic Green sign. The common bile duct measures 4.1 mm. The right kidney measures 11.1 x 5.9 x 6.8 cm. 3 mm echogenic focus, nonobstructing nephrolith. No hydronephrosis US/US right upper quadrant IMPRESSION: 6.5 cm right hepatic lobe cyst with some internal debris Electronically authenticated by: ISAÍAS DIXON Date: 01/08/2024 10:15 Dictated By: Isaías Dixon M.D. Signed By: 01/08/24 1017 DD/ 1015 TD/TT: Legal Technician:TBHRadiology, Radiologist, MD - 01/08/2024 [place] [address] Ultrasound Report Signed Patient: ZAID MELLO MR#: [id number] : 1960 Acct:[id number] Age/Sex: 63 / M ADM Date: 01/08/24 Loc: US Attending Dr: Shaikh Lexi Senior Ordering Physician: Shaikh Nadeen Elliott Date of Service: 01/08/24 Procedure(s): US right upper quadrant Accession Number(s): [id number] cc: Shaikh Nadeen Elliott [address] [place] [id number] Patient Name: ZAID MELLO MRN: [id number] date: 1960 Sex: M Assigned Patient Location: US Current Patient Location: US Accession/Order Number: [id number] Exam Date: 01/08/2024 09:05 Report Date: 01/08/2024 10:15 At the request of: SHAIKH LEXI Procedure: US right upper quadrant EXAM: US right upper quadrant HISTORY: Abnormal CT Of Liver R93.2 COMPARISON: 05/30/2022 TECHNIQUE: Grayscale, color and Doppler FINDINGS: The liver appears normal in size and contour measuring 16.6 cm in length. Diffuse increase in hepatic echotexture. Identified in the right hepatic lobe is a 6.5 x 6.5 x 5.8 cm area of anechoic echogenicity with a few scattered internal low-level echoes. Hepatopedal flow in the main portal vein which measures 30 cm/s. The pancreas is poorly visualized due to bowel gas The gallbladder is normal in size. The wall measures 1.6 mm. Negative sonographic Green sign. The common bile duct measures 4.1 mm. The right kidney measures 11.1 x 5.9 x 6.8 cm. 3 mm echogenic focus, nonobstructing nephrolith. No hydronephrosis US/US right upper quadrant IMPRESSION: 6.5 cm right hepatic lobe cyst with some internal debris Electronically authenticated by: ISAÍAS DIXON Date: 01/08/2024 10:15 Dictated By: Isaías Dixon M.D. Signed By: 01/08/24 1017 DD/ 1015 TD/TT: Legal Technician: HOLLIE HealthcareRadiology Study observation (narrative)NOM HealthcareUS RIGHT UPPER QUADRANTOrdered By: Radiologist Radiology on 01-71-9669[facility] Work Phone: Measure post void residualon 83-58-3040Qxpevk937jV [facility] HospitalPOCT Urinalysis Auto, W/O Microscopyon 20-59-1730Pdcaeuyl Poct Urine BloodLargeProtestant Hospital System External Poct Urine GlucoseNegativeProtestant Hospital SystemExternal Poct Urine KetonesTracePWhite Hospital SystemExternal Poct Urine Leukocyte EsteraseTrace [facility] HospitalExternal Poct Urine NitriteNegativeProtestant Hospital SystemExternal Poct Urine Ph6.0C[facility] HospitalExternal Poct Urine Protein2+[facility] SystemBasic Metabolic Panelon 89-03-6157Dsvgd gap [Moles/Vol]6 mmol/L5 - 15 mmol/LProMedica Health System Calcium [Mass/Vol]9.0 mg/dL8.5 - 10.5 mg/dLProMercy Health St. Elizabeth [facility] Hospital SystemChloride [Moles/Vol]103 mmol/L98 - 109 mmol/LProMedica Health SystemCO2 [Moles/Vol]29 mmol/L22 - 32 mmol/LProMedica Health SystemCreatinine [Mass/Vol]0.91 mg/dL0.60 - 1.30 mg/dLCherrington HospitalComment on above:METHOD TRACEABLE TO IDOH STANDARDeGFR (CKD-EPI)non-race dependent- PINWestern Missouri Mental Health CenterComment on above: Reported eGFR is based on the CKD-EPI 2020 equation that does not use a race coefficient. Glucose [Mass/Vol]169 mg/nRIcqa47 - 99 mg/dLCherrington Hospital Interpretation and review of laboratory resultsAbnormalCherrington Hospital Potassium [Moles/Vol]4.3 mmol/L3.5 - 5.0 mmol/[facility] SystemSodium [Moles/Vol]138 mmol/L134 - 146 mmol/[facility] HospitalUrea nitrogen [Mass/Vol]14 mg/dL5 - 27 mg/dLWellSpan Surgery & Rehabilitation HospitalECG 12 leadon 74-05-8104XFDLWWFLHYLTLMOnfWhtvnf Health SystemHemoglobinon 10-24-2023 Hemoglobin (Bld) [Mass/Vol]14.1 g/dL13.0 - 17.0 g/dLCherrington Hospital Hemoglobin (Bld) [Mass/Vol]on 30-34-8258YzrCpskwbHarrison Community HospitalXR Chest PA and Lateralon 86-72-3062XP and lateral chest: HISTORY: Preoperative exam. Anesthesia clearance. 2 views the chest are obtained. There is a small right pleural effusion. Lungs otherwise clear. No consolidation. The cardiac contour is stable in comparison with 01/10/2023. No pneumothorax. IMPRESSION: Small right pleural effusion. Finalized by Chacorta Singleton MD on 10/24/2023 11:15 Chacorta Perales MD - 10/24/2023 PA and lateral chest: HISTORY: Preoperative exam. Anesthesia clearance. 2 views the chest are obtained. There is a small right pleural effusion. Lungs otherwise clear. No consolidation. The cardiac contour is stable in comparison with 01/10/2023. No pneumothorax. IMPRESSION: Small right pleural effusion. Finalized by Chacorta Singleton MD on 10/24/2023 11:15 AM CrowdneticBoomset Formerly [facility] South[facility] HospitalRadiology Study observation (narrative)UnocoinXR Chest PA and LateralOrdered By: Chacorta Singleton on 34-24-7170VthVwbyoz Health Applicasa Work Phone: Office Visit (Cardiology)on 88-12-7821Jiwrfc-up visit Diagnoses/Problems Assessed CAD (coronary artery disease) [...] YEARS AGO 2005- SMOKED ABOUT 2 PPD Orders CAD (coronary [...] Weight Tips; Status:Complete - Retrospective Authorization; Done: [id number] Some eating tips that can help you lose weight.; Status:Complete - Retrospective Authorization; Done: [id number] Hyperlipidemia Renew: Atorvastatin Calcium 80 MG Oral Tablet; TAKE 1 TABLET AT BEDTIME S/P CABG (coronary artery bypass graft), Status post insertion of drug eluting coronary artery stent Start: Clopidogrel Bisulfate 75 MG Oral Tablet (Plavix); TAKE 1 TABLET DAILY SocHx: Former smoker Tobacco Use Screening; Status:Complete; Done: [id number] Patient Instructions Please bring all medicines, vitamins, and herbal supplements with you when you come to the office. Prescriptions will not be filled unless you are compliant with your follow up appointments or have a follow up appointment scheduled as per instruction of your physician. Refills should be requested at the time of your visit. Dr. Walt Barragan, [id number], [place] [address] to do surgery to remove [...] Patient had remote CABG, recent non-ST elevation MS due to closure of negative right coronary however this was inconsequential because his poarch right coronary is already bypassed therefore he [...] 04Oct2022 09:52AM Heart Ra (more content not included)...NormalUH TouchworksTobacco Screening.on 42-81-6688Cioxz depression screening assessmentNo-Lifecare Medical CenterLockdown Networks 250 DO Work Phone: Tobacco use status CPHSb) NoM-[facility] Centerusky 250 DO Work Phone: Activated partial thromboplastin time (aPTT) in platelet poor plasma by coagulation aOrdered By: Norm Jackson on 73-05-3312pXNK Coag (PPP) [Time]34.9 s25.1-36.5FCleveland Clinic Fairview HospitalBasophils Auto (Bld) [#/Vol]Ordered By: Norm Jackson on 48-82-3505Wsnvoxfgc (Bld) [#/Vol]0.0 10*3/uL0.0-0.2FCleveland Clinic Fairview HospitalBasophils/100 WBC Auto (Bld) Ordered By: Norm Jackson on 27-32-8366Mpkmtxqyb/100 WBC (Bld)0.5 %.[facility] SystemBlood hemoglobin measurement (mass/volume)Ordered By: Norm Jackson on 59-37-6947Qaefkfpcci (Bld) [Mass/Vol]13.9 g/dL13.0-17.0[facility] SystemBlood leukocytes automated count (number/volume)Ordered By: Norm Jackson on 45-13-9232ZNG (Bld) [#/Vol]5.6 10*3/uL4.5-11.0[facility] SystemCreatinine and Glomerular filtration rate.predicted panel (S/P/Bld)Ordered By: Jaswinder Flores on 39-57-2215Tijczpgfaz [Mass/Vol]1.00 mg/dL0.64-1.27[facility] SystemEosinophils Auto (Bld) [#/Vol] Ordered By: Norm Jackson on 21-14-8250Mmcbeahrkag (Bld) [#/Vol]0.3 10*3/uL0.0-0.45 [facility] SystemEosinophils/100 WBC Auto (Bld)Ordered By: Norm Jackson on 68-07-5734Nispifsnjtm/100 WBC (Bld)5.3 %.[facility] SystemErythrocyte distribution width Auto (RBC) [Ratio]Ordered By: Norm Jackson on 21-45-5124Vwtxapsjrhu distribution width (RBC) [Ratio]13.0 %12.0-14.8[facility] SystemEstimated glomerular filtration rate (GFR) non- AmericanOrdered By: Jaswinder Vegaomar on 94-51-3019CIQ/1.73 sq M.predicted among non-blacks MDRD (S/P/Bld) [Vol rate/Area]> 60 mL/MinTrinity Health SystemGlucose Glucometer (BldC) [Mass/Vol]Ordered By: Ralphdaangel Vegaomar on 09-52-4323Dcoyagv [Mass/Vol]145 mg/dLTrinity Health SystemComment on above:Random Glucose Reference Range is dependent on time and content of last meal. Glucose of more than 200 mg/dL in a nonstressed, ambulatory subject supports the diagnosis of Diabetes Mellitus.Hematocrit Auto (Bld) [Volume fraction]Ordered By: Norm Jackson on 84-22-5248Smubzmygzi (Bld) [Volume fraction] 40.5 %38.8-50.0[facility] SystemLaboratory - CoagulationOrdered By: Norm Jackson on 50-66-0697AY Coag (PPP) [Time]12.0 s9.0-12.9[facility] SystemLaboratory - Hematology and Cell countsOrdered By: Norm Jackson on 02-66-0646Mimnlhsjh RBC/100 WBC (Bld) [Ratio]0.2 %0-0.5FCleveland Clinic Fairview HospitalLymphocytes Auto (Bld) [#/Vol]Ordered By: Norm Jackson on 07-28-2022 Lymphocytes (Bld) [#/Vol]1.4 10*3/uL1.00-4.8[facility] Lymphocytes/100 WBC Auto (Bld)Ordered By: Norm Jackson on 52-71-1483Sxpinqvuzam/100 WBC (Bld)24.6 %.[facility] Auto (RBC) [Entitic mass] Ordered By: Norm Jackson on 61-10-5775IZT (RBC) [Entitic mass]30.4 pg27.5-35.2 [facility] Health SystemMCHC Auto (RBC) [Mass/Vol]Ordered By: Norm Jackson on 64-69-3676LTIT (RBC) [Mass/Vol]34.3 g/dL32.5-35.6FCleveland Clinic Fairview HospitalMCV Auto (RBC) [Entitic vol]Ordered By: Norm Jackson on 40-52-9101PWZ (RBC) [Entitic vol]88.8 fL83.5-101[facility] SystemMonocytes Auto (Bld) [#/Vol]Ordered By: Norm Jackson on 10-92-7448Aatolsbmb (Bld) [#/Vol]0.6 10*3/uL0.0-0.8[facility] SystemMonocytes/100 WBC Auto (Bld) Ordered By: Norm Jackson on 16-84-3630Fqluwcvtq/100 WBC (Bld)11.1 %.[facility] Health SystemNeutrophils Auto (Bld) [#/Vol]Ordered By: Norm Jackson on 15-23-0136Jmrhuyefthd (Bld) [#/Vol]3.3 10*3/uL1.8-7.7FCleveland Clinic Fairview HospitalNeutrophils/100 WBC Auto (Bld)Ordered By: Norm Jackson on 07-28-2022 Neutrophils/100 WBC (Bld)58.5 %.[facility] SystemNo Panel InformationOrdered By: Jaswinder Flores on 03-16-8583Jnlrxanhk GFR ()> 60 mL/MinTrinity Health SystemComment on above:GFR estimated reference range: According to KDOQI guidelines, <60 ml/min/1.73m2 is sufficient todiagnose a patient with chronic kidney disease.Pharmacy Creatinine Clearance (Chem90.35[facility] SystemPlatelet mean volume Auto (Bld) [Entitic vol]Ordered By: Norm Jackson on 21-39-0597Cfmqhcxx mean volume (Bld) [Entitic vol]7.9 fL6.6-10.1FCleveland Clinic Fairview HospitalPlatelet poor plasma international normalized ratio (INR) by coagulation assay (relatOrdered By: Norm Jackson on 00-12-8372GRW Coag (PPP) [Relative time]1.1 {INR}[facility] SystemComment on above:INR Therapeutic Range A) Pre- and Peroperative OAT started two weeks before surgery. NOT HIP SURGERY: 1.5 - 2.5 HIP SURGERY: 2 - 3B) Primary and secondary prevention of venous THROMBOSIS: 2 - 3C) Active venous thrombosis, pulmonary embolismand prevention of recurrent venous thrombosis: 2 - 3D) Prevention of arterial thromboembolismincluding patients with mechanical heart valves: 3 - 4.5Platelets Auto (Bld) [#/Vol]Ordered By: Norm Jackson on 37-19-2537Ffrsqtlia (Bld) [#/Vol]209 10*3/mN106-468RtwguwpdyTrinity Health SystemRBC Auto (Bld) [#/Vol]Ordered By: Norm Jackson on 52-74-9574LPB (Bld) [#/Vol]4.56 10*6/uL3.90-5.60Z[facility] City Hospitalerum or plasma anion gap determinationOrdered By: Norm Jackson on 82-02-8060Lvwoj gap [Moles/Vol]13.0 mmol/L6.0-15.0Z[facility] City Hospitalerum or plasma chloride measurement (moles/volume)Ordered By: Norm Jackson on 35-58-8003Bbjuzvjb [Moles/Vol]102 mmol/T11-711CertbfemyZanesville City Hospitalerum or plasma potassium measurement (moles/volume)Ordered By: Norm Jackson on 22-51-5109Nshxcmzsc [Moles/Vol]4.2 mmol/L3.5-5.1FGenesis Hospitalerum or plasma sodium measurement (moles/volume)Ordered By: Norm Jackson on 06-16-7868Wzdgum [Moles/Vol]136 mmol/J731-464KdqxfwswuZanesville City Hospitalerum or plasma total carbon dioxide measurement (moles/volume)Ordered By: Norm Jackson on 55-55-1518KS2 [Moles/Vol]25.2 mmol/L22.0-30.0[facility] Serum or plasma urea nitrogen measurement (mass/volume)Ordered By: Norm Jackson on 43-89-9781Lxew nitrogen [Mass/Vol]11 mg/dL9-23[facility] Troponin I.cardiac [Mass/volume] in Serum or Plasma by High sensitivity method Ordered By: Jaswinder Flores on 74-48-3650Wadeeymo I.cardiac High sensitivity method [Mass/Vol]304 pg/mL0-20[facility] SystemComment on above: Results calledat 1002 on 07/27/22Albumin [Mass/volume] in Serum or PlasmaOrdered By: Jaswinder Flores on 65-81-9594Gtjbkqd [Mass/Vol]3.7 g/dL3.2-5.5FCleveland Clinic Fairview HospitalBNPon 21-28-3593Vjyatzvttkb peptide B (Bld) [Mass/Vol] 62.0 pg/mLNormal<=900.0The [place] [facility] SystemComment on above:Performed By: #### CMADM, BNP, CMP ####[facility] [address] [place], [place] [address]VpDr. Sg QUIÑONEZ ADMITon 26-80-0815UA [Catalytic activity/Vol]111 U/KMqcajk06-838Smt [place] [facility] SystemComment on above:Performed By: #### CMADM, BNP, CMP #### [facility] [address] [place], [place] [address] Dr. Sg Thurston.MB [Mass/Vol]2.36 ng/mLNormal<=3.60The [place] [facility] Comment on above:Performed By: #### CMADM, BNP, CMP #### [facility] [address] [place] [address] [address] Sg GrimesHSTROP42.8 pg/mLNormal4.0-76.1Grant HospitalComment on above:Result Comment: CUT-OFF POINTS HAVE BEEN ESTABLISHED BASED ON THE FOURTH UNIVERSAL DEFINITIONS OF MYOCARDIAL INFARCTION. THE UPPER REFERENCE LIMIT (URL) OF TROPONIN, DEFINED THE 99TH PERCENTILE OF cTnI DISTRIBUTION IN A REFERENCE POPULATION, HAS BEEN CONFIRMED THE DECISION THRESHOLD FOR MS DIAGNOSIS.Performed By: #### CMADM, BNP, CMP #### [facility] [address] [place] [address] Dr. Sg Contreras78 ng/zTWunskg29-21XtvGrant HospitalComment on above: Performed By: #### CMADM, BNP, CMP #### [facility] [address] [place] [address] Dr. Sg Alicea AUTO DIFFon 86-64-9764QLOM #0.0 103/ulNormal0.0-0.1[facility] HospitalComment on above:Performed By: #### CBC #### [facility] [address] [place] [address] Dr. Sg Portersophils/100 WBC (Bld)0.2 %Normal0.2-2.0[facility] Comment on above:Performed By: #### CBC #### [facility] [address] [place] [address] Dr. Sg Kumar #0.3 103/ulNormal0.0-0.7The [place] [facility] Health SystemComment on above: Performed By: #### CBC #### [facility] [address] [place] [address] Dr. Sg Dodsonosinophils/100 WBC (Bld)5.4 %Normal0.9-7.0[facility] Comment on above:Performed By: #### CBC #### [facility] [address] [place] [address] Dr. Sg Dodsonrythrocyte distribution width (RBC) [Ratio]12.5 %Gregyb72.0-15.0 [facility] HospitalComment on above:Performed By: #### CBC #### [facility] [address] [place] [address] Dr. Sg GrimesHematocrit (Bld) [Volume fraction]40.8 %Critically low42.0-54.0 The [place] [facility] SystemComment on above:Performed By: #### CBC #### [facility] [address] [place] [address] Dr. Sg GrimesHemoglobin (Bld) [Mass/Vol]13.8 g/dLCritically low14.0-18.0The [place] [facility] SystemComment on above:Performed By: #### CBC #### [facility] [address] [place] [address] Dr. Sg Flores #0.01 10e3/ulNormal0.00-0.03The [place] [facility] SystemComment on above:Performed By: #### CBC #### [facility] [address] [place] [address] Dr. Sg Flores %0.2 %Normal0.0-0.5The [place] [facility] Health SystemComment on above: Performed By: #### CBC #### [facility] [address] [place] [address] Dr. Sg Hilton #1.1 103/ulCritically low1.2-3.8The [place] [facility] Comment on above:Performed By: #### CBC #### [facility] [address] [place] [address] Dr. Sg Paulmphocytes/100 WBC (Bld)19.2 %Critically low20.5-60.0The [place] [facility] SystemComment on above:Performed By: #### CBC #### [facility] [address] [place] [address] Dr. Sg CheungUAL DIFF REQNONormalThe [place] [facility] Health SystemComment on above: Performed By: #### CBC #### [facility] [address] [place] [address] Dr. Sg Donaldson (RBC) [Entitic mass]29.8 pkUlzzfq04.9-34.0The [place] [facility] SystemComment on above:Performed By: #### CBC #### [facility] [address] [place] [address] Dr. Sg Liang (RBC) [Mass/Vol]33.8 g/uVNsukye18.9-35.2The [place] [facility] SystemComment on above:Performed By: #### CBC #### [facility] [address] [place] [address] Dr. Sg Liang (RBC) [Entitic vol]88.1 zQWvkong89.0-94.0The [place] [facility] SystemComment on above:Performed By: #### CBC #### [facility] [address] [place] [address] Dr. Sg Epps #0.6 103/ulNormal0.3-0.8The [place] [facility] Health SystemComment on above:Performed By: #### CBC #### [facility] [address] [place] [address] Dr. Sg Perryocytes/100 WBC (Bld)10.8 %Normal1.7-12.0The [place] [facility] Comment on above:Performed By: #### CBC #### [facility] [address] [place] [address] Dr. Sg Rosa #3.6 103/ulNormal1.4-6.5The [place] [facility] Health SystemComment on above:Performed By: #### CBC #### [facility] [address] [place] [address] Dr. Sg Mcdanielutrophils/100 WBC (Bld)64.2 %Gstjlw50.0-75.0The [place] [facility] SystemComment on above:Performed By: #### CBC #### [facility] [address] [place] [address] Dr. Sg Sparkslet mean volume (Bld) [Entitic vol]9.4 fLCritically low 9.5-13.5The [place] [facility] SystemComment on above:Performed By: #### CBC #### [facility] [address] [place] [address] [address] Sg GrimesPLT225 103/gzIpmszo604-935Sej [place] [facility] Health SystemComment on above: Performed By: #### CBC #### [facility] [address] [place] [address] [address] Sg GrimesRBC4.63 106/ulCritically low4.70-6.10The [place] [facility] SystemComment on above:Performed By: #### CBC #### [facility] [address] [place] [address] [address] Sg GrimesWBC5.6 103/ulNormal4.0-11.0[facility] HospitalComment on above: Performed By: #### CBC #### [facility] [address] [place] [address] [address] Sg GrimesCholesterol [Mass/volume] in Serum or PlasmaOrdered By: Obaydah Daromar on 19-96-4139Utkoypkxszu [Mass/Vol]103 mg/iM227-551OwimrjkbkTrinity Health SystemComment on above:Chol less than 200 mg/dl low riskChol 201-239 mg/dl borderline riskChol 240 mg/dl and greater high riskCholesterol in LDL Calc [Mass/Vol]Ordered By: Obaydah Daromar on 56-78-9120Wvbrbezvmtt in LDL [Mass/Vol]51 mg/dL0-100[facility] Health SystemComment on above:LDL ATP III CLASSIFICATIONLDL less than 100 mg/dL OptimalLDL 100-129 mg/dL Near or above bbihenwBZP056-283 mg/dL Borderline highLDL 160-189 mg/dL HighLDL greater than 189 mg/dL Very highCholesterol in VLDL Calc [Mass/Vol]Ordered By: Obaydah Daromar on 73-26-6558Zsdmjauigyl in VLDL [Mass/Vol]21 mg/dLTrinity Health SystemCovid-19 PCR (CVDTBH)on 05-72-0553WOOO-CoV-2 (COVID-19) RNA DONTE+probe Ql (Unsp spec)Not detectedNormalNOT DETECTEDThe [place] [facility] Comment on above:Result Comment: When diagnostic testing is negative, the [...] for this test is supported by the Applied Psychology Chair of Health and Human Service's declaration that circumstances exist to justify the emergency use of in vitro diagnostics for the detection and/or diagnosis of the virus that causes COVID-19. This EUA will remain in effect for the duration of the COVID-19 declaration justifying emergency of IVDs, unless it is terminated or revoked by the FDA (after which the test may no longer be used).Performed By: #### CVDTBH #### [facility] [address] [place] [address] Dr. Sg GrimesGlobulin Calc (S) [Mass/Vol]Ordered By: Jaswinder Flores on 46-17-6691Rqyudrxx (S) [Mass/Vol]2.8 g/dLTrinity Health System Glucose mean value [Mass/volume] in Blood Estimated from glycated hemoglobin Ordered By: Jaswinder Flores on 36-96-0710Yzojqfi glucose Estimated from glycated hemoglobin (Bld) [Mass/Vol]151 mg/dLTrinity Health SystemHemoglobin A1c percentageOrdered By: Jaswinder Flores on 53-34-7301FmH1a (Bld) [Mass fraction]6.9 %4.3-5.6FCleveland Clinic Fairview HospitalComment on above:Increased risk for diabetes: 5.7 - 6.4diabetes: >6.4glycemic control for adults with diabetes: <7.0Laboratory - Chemistry and Chemistry - challengeOrdered By: Jaswinder Flores on 80-96-1194Jsqyulado [Mass/Vol]2.0 mg/dL1.6-2.6FCleveland Clinic Fairview HospitalPROF 14(COMP METB)on 03-66-0963Yrswawn [Mass/Vol]3.9 g/dL Normal3.4-5.0The [place] [facility] SystemComment on above:Performed By: #### CMADM, BNP, CMP #### [facility] [address] [place] [address] [address] Sg GrimesAlbumin/Globulin [Mass ratio]1.2 {ratio}NormalThe [place] State Health SystemComment on above:Performed By: #### CMADM, BNP, CMP #### [facility] [address] [place] [address] [address] Sg Montes [Catalytic activity/Vol]101 U/VVmwvhl59-707Zwi [place] [facility] SystemComment on above:Performed By: #### CMADM, BNP, CMP #### [facility] [facility] [address] [address] [address] Sg Bella [Catalytic activity/Vol]33 U/NEpcudb97-09Ume [facility] SystemComment on above:Performed By: #### CMADM, BNP, CMP #### [facility] [address] [address] [address] Sg Ugarte gap [Moles/Vol]12.8 mmol/LNormalThe [place] [facility] Comment on above:Performed By: #### CMADM, BNP, CMP #### [facility] [address] [address] [address] Sg GrimesAST [Catalytic activity/Vol]23 U/BTqdpue37-33Mkf [facility] on above:Performed By: #### CMADM, BNP, CMP #### [facility] [address] [address] [address] Sg GrimesBilirubin [Mass/Vol]0.4 mg/dLNormal0.2-1.0The [facility] Comment on above:Performed By: #### CMADM, BNP, CMP #### [facility] [address] [address] [address] Sg GrimesCalcium [Mass/Vol]8.9 mg/dLNormal8.5-10.1[facility] Comment on above:Performed By: #### CMADM, BNP, CMP #### [facility] [address] [place] [address] Dr. Sg GrimesChloride [Moles/Vol]103 mmol/UVwsihk15-218Mbt [facility] Comment on above:Performed By: #### CMADM, BNP, CMP #### [facility] [address] [place] [address] Dr. Sg GrimesCO2 [Moles/Vol]25.2 mmol/CDofcsm07.0-32.0The [facility] Comment on above:Performed By: #### CMADM, BNP, CMP #### [facility] [address] [place] [address] Dr. Sg GrimesCreatinine [Mass/Vol]1.04 mg/dLNormal0.70-1.30The [place] [facility] SystemComment on above:Performed By: #### CMADM, BNP, CMP #### [facility] [address] [place] [address] Dr. Sg DodsonGFR-AF MONGOLIAN>60Normal>=60The [place] [facility] SystemComment on above:Performed By: #### CMADM, BNP, CMP #### [facility] [address] [place] [address] Dr. Sg DodsonGFR-NON AF MONGOLIAN>60Normal>=60The [place] [facility] SystemComment on above:Performed By: #### CMADM, BNP, CMP #### [facility] [address] [place] [address] Dr. Sg GrimesGlobulin (S) [Mass/Vol]3.3 g/dLNormalThe [place] [facility] SystemComment on above:Performed By: #### CMADM, BNP, CMP #### [facility] [address] [place] [address] Dr. Sg GrimesGlucose [Mass/Vol]146 mg/dLCritically jadd07-162Kqd [facility] SystemComment on above:Performed By: #### CMADM, BNP, CMP #### [facility] [address] [place] [address] Dr. Sg GrimesPotassium [Moles/Vol]4.0 mmol/LNormal3.5-5.1The [facility] Comment on above:Performed By: #### CMADM, BNP, CMP #### [facility] [address] [place] [address] Dr. Sg GrimesProtein [Mass/Vol]7.2 g/dLNormal6.4-8.2The [facility] Comment on above:Performed By: #### CMADM, BNP, CMP #### [facility] [address] [address] [address] Sg GrimesSodium [Moles/Vol]137 mmol/NZgmwyg761-745Wlm [facility] Comment on above:Performed By: #### CMADM, BNP, CMP #### [facility] [address] [place] [address] Dr. Sg GrimesUrea nitrogen [Mass/Vol]6.0 mg/dLCritically low7.0-18.0The [place] [facility] SystemComment on above:Performed By: #### CMADM, BNP, CMP #### [facility] [address] [place] [address] Dr. Sg Connelly nitrogen/Creatinine [Mass ratio]5.8 mg/mgNormParkview Health Bryan HospitalComment on above:Performed By: #### CMADM, BNP, CMP #### [facility] [address] [place] [address] Dr. Sg Romero 18-14-4370NSY Coag (PPP) [Relative time]0.97 {INR} NormalGrant HospitalComment on above:Performed By: #### PTT, PT #### [facility] [address] [place] [address] Dr. Sg Rubio GUIDELINESSEE BELOWBlanchard Valley Health System Bluffton HospitalComment on above:Result Comment: DESIRED INR: 2.0 - 3.0 CONDITIONS NOT LISTED BELOW 2.5 - 3.5 FOR PROSTHETIC HEART VALVE REPLACEMENT 2.5 - 3.5 RECURRENT THROMBOSIS Performed By: #### PTT, PT #### [facility] [address] [place] [address] Dr. Sg GrimesPT Coag (PPP) [Time]10.5 sNormal9.0-11.6The [facility] Comment on above:Performed By: #### PTT, PT #### [facility] [address] [place], [place] [address] Dr. Sg Vivas 44-15-4707cYAT Coag (Bld) [Time]26.1 xIhrzug46.3-36.2The [place] [facility] Health SystemComment on above:Performed By: #### PTT, PT #### [facility] [address] [place], [place] [address] Dr. Sg GrimesPhosphate [Mass/volume] in Serum or PlasmaOrdered By: Objeffdaangel Vegaomar on 49-37-7263Kizhmaeqv [Mass/Vol]3.7 mg/dL2.5-4.6FCleveland Clinic Fairview HospitalProtein [Mass/volume] in Serum or PlasmaOrdered By: Obaydah Daromar on 87-83-9053Vfjvtdd [Mass/Vol]6.5 g/dL6.1-7.9[facility]anesville City Hospitalerum or plasma alanine aminotransferase measurement without P-5'-P (enzymatic activiOrdered By: Objeffdaangel Vegaomar on 14-14-0740RKB No additional P-5'-P [Catalytic activity/Vol]26 U/V28-90RuteiepmfZanesville City Hospitalerum or plasma albumin/globulin mass ratioOrdered By: Obaydah Daromar on 07-26-2022 Albumin/Globulin [Mass ratio]1.3 {ratio}[facility] Hospitalerum or plasma alkaline phosphatase measurement (enzymatic activity/volume)Ordered By: Objeffdah Daromar on 32-22-8928HHS [Catalytic activity/Vol]84 U/L32-92 [facility] Hospitalerum or plasma aspartate aminotransferase measurement (enzymatic activity/volume)Ordered By: Obaydah Daromar on 07-26-2022 AST [Catalytic activity/Vol]25 U/X40-24RggqlvwbfZanesville City Hospitalerum or plasma calcium measurement (mass/volume)Ordered By: Obaydah Daromar on 58-91-8230Xflskpm [Mass/Vol]9.1 mg/dL8.2-10.2FC[facility] Hospital Serum or plasma glucose measurement (mass/volume)Ordered By: Objeffdah Garyomar on 60-08-4453Lhqkkfi [Mass/Vol]93 mg/yU35-860MmqpezwpiTrinity Health System Comment on above:ADA recommended reference rangeRandom Glucose Reference Range is dependent on time and content of last meal. Glucose of more than 200 mg/dL in a nonstressed, ambulatory subject supports the diagnosisof Diabetes Mellitus. Serum or plasma high density lipoprotein (HDL) cholesterol measurementOrdered By: Jaswinder Leir on 58-61-3744Tqylgrxgspf in HDL [Mass/Vol]30 mg/dL29-71 [facility] SystemComment on above:HDL CHOL ATP-III CLASSIFICATION Cardiovascular RiskHDL > or equal to 60 mg/dL LOWHDL < 40 mg/dL HIGHSerum or plasma total bilirubin measurement (mass/volume)Ordered By: Jaswinder Flores on 83-32-7495Jfsldltre [Mass/Vol]0.7 mg/dL0.3-1.2FGenesis Hospitalerum or plasma total cholesterol/high density lipoprotein (HDL) cholesterol mass ratOrdered By: Jaswinder Flores on 07-26-2022 Cholesterol.total/Cholesterol in HDL [Mass ratio]3.4 {ratio}<5.0[facility] Health SystemTROPONIN, HIGH SENSITIVITYon 82-96-0829SANUMD012.5 pg/mL Critically high4.0-76.1The [place] [facility] Health SystemComment on above:Result Comment: CUT-OFF POINTS HAVE BEEN ESTABLISHED BASED ON THE FOURTH UNIVERSAL DEFINITIONS OF MYOCARDIAL INFARCTION. THE UPPER REFERENCE LIMIT (URL) OF TROPONIN, DEFINED THE 99TH PERCENTILE OF cTnI DISTRIBUTION IN A REFERENCE POPULATION, HAS BEEN CONFIRMED THE DECISION THRESHOLD FOR MS DIAGNOSIS.Performed By: #### HSTROPN #### [facility] [address] [address] [address] Sg GrimesTriglyceride [Mass/volume] in Serum or PlasmaOrdered By: Jaswinder Flores on 14-45-9254Fnbtpfepfvch [Mass/Vol]109 mg/kK88-474PkzznkxbbTrinity Health SystemComment on above:TRIG ATP III CLASSIFICATIONTRIG less than 150 mg/dL NormalTRIG 150-199 mg/dL Borderline highTRIG 200-500 mg/dL High TRIG greater than 500 mg/dL Very highStandard traceable to the Center for Disease Co nrtrol and Prevention (CDC) test method.XR CHEST 1 Von 95-08-7673WY CHEST 1 V EXAMINATION: XR CHEST 1 V HISTORY: CHEST PAIN, UNSPECIFIED COMPARISON: [...] Electronically authenticated by: SAUNDRA GOEL Date: 2022-07-26 12:14NormLakeHealth [facility] AUTO DIFFon 39-63-5598WAVQ #0.0 103/ulNormal0.0-0.1[facility] HospitalComment on above:Performed By: #### CBC #### [facility] [address] [place] [address] Dr. Sg GrimesBasophils/100 WBC (Bld)0.4 %Normal0.2-2.0[facility] Comment on above:Performed By: #### CBC #### [facility] [address] [place] [address] Dr. Sg Kumar #0.2 103/ulNormal0.0-0.7The [place] [facility] Health SystemComment on above: Performed By: #### CBC #### [facility] [address] [place] [address] Dr. Sg Dodsonosinophils/100 WBC (Bld)3.4 %Normal0.9-7.0[facility] Comment on above:Performed By: #### CBC #### [facility] [address] [place] [address] Dr. Sg Dodsonrythrocyte distribution width (RBC) [Ratio]12.7 %Yctgbb84.0-15.0 The [place] [facility] Health SystemComment on above:Performed By: #### CBC #### [facility] [address] [place] [address] Dr. Sg GrimesHematocrit (Bld) [Volume fraction]40.8 %Critically low42.0-54.0 The [place] [facility] Health SystemComment on above:Performed By: #### CBC #### [facility] [address] [place] [address] Dr. Sg Mosheroglobin (Bld) [Mass/Vol]13.5 g/dLCritically low14.0-18.0The [place] [facility] Health SystemComment on above:Performed By: #### CBC #### [facility] [address] [place] [address] Dr. Sg Flores #0.02 10e3/ulNormal0.00-0.03The [place] [facility] SystemComment on above:Performed By: #### CBC #### [facility] [address] [place] [address] Dr. Sg Flores %0.4 %Normal0.0-0.5The [place] [facility] Health SystemComment on above: Performed By: #### CBC #### [facility] [address] [place] [address] Dr. Sg Hilton #1.1 103/ulCritically low1.2-3.8The [facility] Comment on above:Performed By: #### CBC #### [facility] [address] [place] [address] Dr. Sg Paulmphocytes/100 WBC (Bld)22.0 %Uzrhqx28.5-60.0The [place] [facility] Health SystemComment on above:Performed By: #### CBC #### [facility] [address] [place] [address] Dr. Sg CheungUAL DIFF REQNONormalThe [place] [facility] Health SystemComment on above: Performed By: #### CBC #### [facility] [address] [place] [address] Dr. Sg Donaldson (RBC) [Entitic mass]30.0 naAdrtdj60.9-34.0The [place] [facility] Health SystemComment on above:Performed By: #### CBC #### [facility] [address] [place] [address] Dr. Sg Liang (RBC) [Mass/Vol]33.1 g/wKTpafsp22.9-35.2The [place] [facility] SystemComment on above:Performed By: #### CBC #### [facility] [address] [address] [address] Sg LiangV (RBC) [Entitic vol]90.7 pJErogrg42.0-94.0The [place] [facility] SystemComment on above:Performed By: #### CBC #### [facility] [address] [place] [address] Dr. Sg Epps #0.5 103/ulNormal0.3-0.8The [place] [facility] SystemComment on above:Performed By: #### CBC #### [facility] [address] [place] [address] Dr. Sg Perryocytes/100 WBC (Bld)9.6 %Normal1.7-12.0The [facility] Comment on above:Performed By: #### CBC #### [facility] [address] [place] [address] Dr. Sg Rosa #3.2 103/ulNormal1.4-6.5The [place] [facility] Health SystemComment on above:Performed By: #### CBC #### [facility] [address] [place] [address] Dr. Sg Mcdanielutrophils/100 WBC (Bld)64.2 %Gutxyv18.0-75.0The [place] [facility] Health SystemComment on above:Performed By: #### CBC #### [facility] [address] [place] [address] Dr. Sg Sparkslet mean volume (Bld) [Entitic vol]9.4 fLCritically low 9.5-13.5The [place] [facility] Health SystemComment on above:Performed By: #### CBC #### [facility] [address] [place] [address] Dr. Sg GrimesPLT232 103/mwZzegyz523-241Dxv [facility] SystemComment on above: Performed By: #### CBC #### [facility] [address] [address] [address] gS GrimesRBC4.50 106/ulCritically low4.70-6.10The [place] [facility] Health SystemComment on above:Performed By: #### CBC #### [facility] [address] [address] [address] Sg GrimesWBC5.0 103/ulNormal4.0-11.0The [place] [facility] SystemComment on above: Performed By: #### CBC #### [facility] [address] [address] [address] Sg GrimesCT ABD/PELVIS WO CONon 81-48-7367OO ABD/PELVIS WO CONEXAMINATION: CT ABD/PELVIS WO CON HISTORY: Left flank [...] Electronically authenticated by: SAUNDRA GOEL Date: 2022-05-30 13:02[facility] Bluffton HospitalPROF 14(COMP METB)on 67-28-1374Rzaamif [Mass/Vol]4.0 g/dLNormal 3.4-5.0The [place] [facility] Health SystemComment on above:Performed By: #### CMP ####[facility] [address] [place], [place] [address]Dr.Sg Grimes Albumin/Globulin [Mass ratio]1.3 {ratio}NormalThe [place] [facility] Health SystemComment on above:Performed By: #### CMP ####[facility] [address] [place], [place] [address]Dr.Sg ChangALP [Catalytic activity/Vol]76 U/LNormal 46-116The [place] [facility] Health SystemComment on above:Performed By: #### CMP ####[facility] Xaxobj[address] [place], [place] [address]Dr.Sg ChangALT [Catalytic activity/Vol]26 U/MFvkucy73-83Erx [facility] SystemComment on above: Performed By: #### CMP ####[facility] Ak[address] [place], [place] [address]Dr.Sg GrimesAnion gap [Moles/Vol]10.3 mmol/LNormal The [place] [facility] Health SystemComment on above:Performed By: #### CMP ####[facility] T[address] [place], [place] [address]Dr.Yilan ChangAST [Catalytic activity/Vol]18 U/GQqotbv89-46Nla [facility] SystemComment on above: Performed By: #### CMP ####[facility] [address] [place], [place] [address]Dr.Sg ChangBilirubin [Mass/Vol]0.6 mg/dLNormal 0.2-1.0The [place] [facility] SystemComment on above:Performed By: #### CMP ####[facility] [address] [place], [place] [address]Dr.Yilan Grimes Calcium [Mass/Vol]9.0 mg/dLNormal8.5-10.1The [place] [facility] SystemComment on above: Performed By: #### CMP ####[facility] [address] [place], [place] [address]Dr.Yilan ChangChloride [Moles/Vol]103 mmol/LNormal 98-107The [place] [facility] SystemComment on above:Performed By: #### CMP ####[facility] Byrf[address]rga[address] [place], [place] [address]Dr.Yilan ChangCO2 [Moles/Vol]30.1 mmol/QUgdkoz30.0-32.0The [place] [facility] SystemComment on above: Performed By: #### CMP ####[facility] Jrpsqkruvj[address] [place], [place] [address]Dr.Yilan ChangCreatinine [Mass/Vol]1.11 mg/dLNormal 0.70-1.30The [place] [facility] SystemComment on above:Performed By: #### CMP ####[facility] F[address] [place], [place] [address]Dr. Yilan ChangEGFR-AF MONGOLIAN>60Normal>=60The [place] [facility] Health SystemComment on above: Performed By: #### CMP ####[facility] R[address]zy[address] [place], [place] [address]Dr.Yilan ChangEGFR-NON AF MONGOLIAN>60Normal>=60The [place] [facility] SystemComment on above:Performed By: #### CMP ####[facility] [address]edumwlkkc[address] [place], [place] [address]Dr.Yilan ChangGlobulin (S) [Mass/Vol]3.2 g/dLNormalThe [place] [facility] Health SystemComment on above:Performed By: #### CMP ####[facility] S[address]vcomfze[address] [place], [place] [address]Dr.Yilan ChangGlucose [Mass/Vol]164 mg/dLCritically movw55-189Spz [facility] SystemComment on above:Performed By: #### CMP ####[facility] [address] [address]Dr.Yimarina ChangPotassium [Moles/Vol]5.4 mmol/LCritically high3.5-5.1The [place] [facility] SystemComment on above:Performed By: #### CMP ####[facility] [address] [address]Dr.Yilan ChangProtein [Mass/Vol]7.2 g/dLNormal6.4-8.2 The [facility] HospitalComment on above:Performed By: #### CMP ####[facility] [address]oplrj[address] [place], [place] [address]Dr.Yimarina ChangSodium [Moles/Vol]138 mmol/AZbjofm020-538Vyd [facility] SystemComment on above: Performed By: #### CMP ####[facility] S[address]bbhub[address] [place], [place] [address]Dr.Yilan ChangUrea nitrogen [Mass/Vol]11.0 mg/dLNormal 7.0-18.0The [place] [facility] SystemComment on above:Performed By: #### CMP ####[facility] Domkyayfbp[address] [place], [place] [address]Dr. Yilan ChangUrea nitrogen/Creatinine [Mass ratio]9.9 mg/mgNormalThe [place] [facility] SystemComment on above:Performed By: #### CMP ####[facility] [address]fwh[address]ox[address] [place], [place] [address]Dr.Sg ChangActivated partial thromboplastin time (aPTT) in platelet poor plasma by coagulation a Ordered By: Norm Jackson on 77-40-6232aOHK Coag (PPP) [Time]30.0 s25.1-36.5 [facility] SystemBasophils Auto (Bld) [#/Vol]Ordered By: Norm Jackson on 30-47-3704Bwdvzvody (Bld) [#/Vol]0.0 10*3/uL0.0-0.2FCleveland Clinic Fairview HospitalBasophils/100 WBC Auto (Bld)Ordered By: Norm Jackson on 05-11-2022 Basophils/100 WBC (Bld)0.6 %.[facility] SystemBlood hemoglobin measurement (mass/volume)Ordered By: Norm Jackson on 71-45-4601Glpoohmyrv (Bld) [Mass/Vol]14.1 g/dL13.0-17.0[facility] SystemBlood leukocytes automated count (number/volume)Ordered By: Norm Jackson on 73-00-6309KIE (Bld) [#/Vol]5.7 10*3/uL4.5-11.0[facility] SystemCOVID-19 SOFIAOrdered By: Norm Jackson on 35-94-9619JHWZ-CoV+SARS-CoV-2 (COVID-19) Ag IA.rapid Ql (Resp) NegativeNegativeTrinity Health SystemComment on above:This is a duplicate Aishwarya SARS Antigen (GENEVA) result to be used for statistical tracking purpose only.Cholesterol [Mass/volume] in Serum or PlasmaOrdered By: Norm Jackson on 93-29-6387Qnzpldmavuv [Mass/Vol]118 mg/vG127-204SznmyhvatTrinity Health SystemComment on above:Chol less than 200 mg/dl low risk Chol 201-239 mg/dl borderline risk Chol 240 mg/dl and greater high riskChol less than 200 mg/dl low riskChol 201- 239 mg/dl borderline riskChol 240 mg/dl and greater high riskCholesterol in LDL Calc [Mass/Vol]Ordered By: Norm Jackson on 53-26-7699Seeggtndzdt in LDL [Mass/Vol] 45 mg/dL0-100[facility] SystemComment on above:LDL ATP III CLASSIFICATION LDL less than 100 mg/dL Optimal LDL 100-129 mg/dL Near or above optimal LDL 130-159 mg/dL Borderline high LDL 160-189 mg/dL High LDL greater than 189 mg/dL Very highLDL ATP III CLASSIFICATIONLDL less than 100 mg/dL OptimalLDL 100-129 mg/dL Near or above pegluxvNNE951-345 mg/dL Borderline highLDL 160-189 mg/dL HighLDL greater than 189 mg/dL Very highCholesterol in VLDL Calc [Mass/Vol]Ordered By: Norm Jackson on 60-23-6746Cjunudzsxiu in VLDL [Mass/Vol]41 mg/dLTrinity Health SystemCreatinine and Glomerular filtration rate.predicted panel (S/P/Bld)Ordered By: Norm Jackson on 05-11-2022 Creatinine [Mass/Vol]0.96 mg/dL0.64-1.27[facility] Eosinophils Auto (Bld) [#/Vol]Ordered By: Norm Jackson on 11-35-4600Bngyybhdyqz (Bld) [#/Vol]0.2 10*3/uL0.0-0.45[facility] SystemEosinophils/100 WBC Auto (Bld)Ordered By: Norm Jackson on 44-64-7509Kucwallajyu/100 WBC (Bld)4.2 % .[facility] Health SystemErythrocyte distribution width Auto (RBC) [Ratio]Ordered By: Norm Jackson on 39-94-3985Vlxcircamsj distribution width (RBC) [Ratio]13.2 %12.0-14.8[facility] SystemEstimated glomerular filtration rate (GFR) non- AmericanOrdered By: Norm Jackson on 05-11-2022 GFR/1.73 sq M.predicted among non-blacks MDRD (S/P/Bld) [Vol rate/Area]> 60 mL/MinTrinity Health SystemHematocrit Auto (Bld) [Volume fraction] Ordered By: Norm Jackson on 48-38-2678Wflpmzitrl (Bld) [Volume fraction]41.3 % 38.8-50.0[facility] SystemLaboratory - Chemistry and Chemistry - challengeon 09-02-4869Djlmsmlpwru [Mass/Vol]118\S\118below low ezkbhtchc349-688 MP-[facility] 250 DO Work Phone: Comment on above:Chol less than 200 mg/dl low risk Chol 201-239 mg/dl borderline risk Chol 240 mg/dl and greater high risk Cholesterol in LDL [Mass/Vol]45\S\74Memlsy5-570QE-Cmika [place] [facility] 250 DO Work Phone: Comment on above:LDL ATP III CLASSIFICATION LDL less than 100 mg/dL Optimal LDL 100-129 mg/dL Near or above optimal LDL 130-159 mg/dL Borderline high LDL 160-189 mg/dL High LDL greater than 189 mg/dL Very high Laboratory - CoagulationOrdered By: Norm Jackson on 26-37-7829YV Coag (PPP) [Time] 11.2 s9.0-12.9[facility] SystemLaboratory - Hematology and Cell countsOrdered By: Norm Jackson on 35-70-9277Enyngirhn RBC/100 WBC (Bld) [Ratio]0.1 %0-0.5FCleveland Clinic Fairview HospitalLaboratory - Microbiology and Antimicrobial susceptibilityon 34-21-2624UUCJ-CoV-2 (COVID-19) RNA DONTE+probe Ql (Unsp spec)MP-[facility] 250 DO Work Phone: Lymphocytes Auto (Bld) [#/Vol]Ordered By: Norm Jackson on 42-25-0381Wopndamzhqr (Bld) [#/Vol]1.4 10*3/uL1.00-4.8[facility] SystemLymphocytes/100 WBC Auto (Bld)Ordered By: Norm Jackson on 05-11-2022 Lymphocytes/100 WBC (Bld)24.2 %.[facility] HospitalH Auto (RBC) [Entitic mass]Ordered By: Norm Jackson on 33-67-9020LTR (RBC) [Entitic mass]30.5 pg 27.5-35.2FBerger HospitalHC Auto (RBC) [Mass/Vol]Ordered By: Norm Jackson on 88-28-6196QMMD (RBC) [Mass/Vol]34.1 g/dL32.5-35.6FCleveland Clinic Fairview HospitalMCV Auto (RBC) [Entitic vol]Ordered By: Norm Jackson on 05-11-2022 MCV (RBC) [Entitic vol]89.6 fL83.5-101[facility] Health SystemMonocytes Auto (Bld) [#/Vol]Ordered By: Norm Jackson on 41-88-7746Gjwlzzxtp (Bld) [#/Vol]0.7 10*3/uL0.0-0.8[facility] SystemMonocytes/100 WBC Auto (Bld) Ordered By: Norm Jackson on 33-35-2616Nozmejsur/100 WBC (Bld)12.3 %.[facility] Health SystemNeutrophils Auto (Bld) [#/Vol]Ordered By: Norm Jackson on 93-01-4528Tzpxabkkkvq (Bld) [#/Vol]3.3 10*3/uL1.8-7.7FCleveland Clinic Fairview HospitalNeutrophils/100 WBC Auto (Bld)Ordered By: Norm Jackson on 05-11-2022 Neutrophils/100 WBC (Bld)58.7 %.[facility] SystemNo Panel InformationOrdered By: Norm Jackson on 91-26-0535Oshrsddyh GFR ()> 60 mL/MinTrinity Health SystemComment on above:GFR estimated reference range: According to KDOQI guidelines, <60 ml/min/1.73m2 is sufficient todiagnose a patient with chronic kidney disease.Pharmacy Creatinine Clearance (ChemN/AFGenesis HospitalARS Antigen (LFIA)[facility] City HospitalARS Antigen (LFIA)[facility] SystemNo Panel Informationon .7\S\58.7Normal.[facility] 250 DO Work Phone: [phone]\S\8.5Ubxojz5.6-10.1MP-[facility] 250 DO Work Phone: [phone]\S\883Brdneg577-002AE-Ixhvz [place] [facility] 250 DO Work Phone: [phone]\S\13.0Iiizpx46.0-14.8MP-[facility] 250 DO Work Phone: [phone]\S\34.3Rpskcm74.5-35.6MP-[facility] 250 DO Work Phone: [phone]\S\30.4Bpmlkh06.5-35.2MP-[facility] 250 DO Work Phone: [phone]\S\3.5Wpcnee1.8-7.7MP-[facility] 250 DO Work Phone: [phone]\S\0.3Wnstoj7-5.5MP-[facility] 250 DO Work Phone: [phone]\S\0.6Normal.[facility] 250 DO Work Phone: [phone]\S\4.2Normal.[facility] 250 DO Work Phone: [phone]\S\12.3Normal.MP-[facility] 250 DO Work Phone: [phone]\S\24.2Normal.MP-[facility] 250 DO Work Phone: [phone]\S\0.1Fcqzfs4.0-0.2MP-[facility] 250 DO Work Phone: [phone] on above:PERFORMED BY:[facility] [place], [place] [phone] MEDICAL DIRECTORSUNNY RANDALL M.D.0.2\S\0.6Evynwg3.0-0.45MP-[facility] 250 DO Work Phone: [phone]\S\0.1Qnpoyf3.0-0.8MP-[facility] 250 DO Work Phone: [phone]\S\1.7Qiexlm6.00-4.8MP-[facility] [facility] [address] DO Work Phone: [phone]\S\89.7Ysjxyx48.6-873RU-Cxreu [place] [facility] DO Work Phone: [phone]\S\41.4Ktsqoz50.8-50.0MP-[facility] [address] DO Work Phone: [phone]\S\14.4Ioymgh12.0-17.0MP-[facility] [address] DO Work Phone: [phone]\S\4.97Lxrspg6.90-5.60MP-[facility] [address] DO Work Phone: [phone]\S\5.2Qdyckw5.1-10.5MP-[facility] [address] DO Work Phone: [phone]\S\30.7Mubfni04.1-36.5MP-[facility] [address] DO Work Phone: Comment on above:PERFORMED BY:[facility] [place], [place] [phone] MEDICAL DIRECTORSUNNY RANDALL M.D.1.0\S\1.0NormalMP-[facility] [address] DO Work Phone: Comment on above:INR Therapeutic Range A) Pre- and Peroperative OAT started two weeks before surgery. NOT HIP SURGERY: 1.5 - 2.5 HIP SURGERY: 2 - 3 B) Primary and secondary prevention of venous THROMBOSIS: 2 - 3 C) Active venous thrombosis, pulmonary embolism and prevention of recurrent venous thrombosis: 2 - 3 D) Prevention of arterial thromboembolism including patients with mechanical heart valves: 3 - 4.511.2\S\11.0Nbxwtc1.0-12.9MP-[facility] [address] DO Work Phone: [phone]\S\27.6Lrvqgh98.0-30.0MP-[facility] [address] DO Work Phone: [phone]\S\597Xhmaqi71-193AR-[facility]ux [place] [facility] [address] DO Work Phone: [phone]\S\5.8Ffbqsx7.5-5.1MP-[facility] [address] DO Work Phone: [phone]\S\390Upfmkh404-879TY-Fnqtl [place] [facility] [address] DO Work Phone: [phone]\S\7below low dfexqcgum0-03YP-Lcaje [place] [facility] DO Work Phone: > 60NormalMP-[facility] [address] DO Work Phone: Comment on above:GFR estimated reference range: According to KDOQI guidelines, <60 ml/min/1.73m2 is sufficient todiagnose a patient with chronic kidney disease.0.96\S\0.02Elkceu4.64-1.27MP-[facility] [address] DO Work Phone: [phone]\S\3.8Normal<5.0MP-[facility] [address] DO Work Phone: Comment on above:PERFORMED BY:[place] [address] [place], [place] [phone] MEDICAL DIRECTORSUNNY RANDALL M.D.41\S\41NormalMP-[facility] [address] DO Work Phone: [phone]\S\208above high rlqaaaoaz69-636FK-Iffnz [place] [facility] DO Work Phone: Comment on above:TRIG ATP III CLASSIFICATION TRIG less than 150 mg/dL Normal TRIG 150-199 mg/dL Borderline high MPML006-235 mg/dL High TRIG greater than 500 mg/dL Very high Standard traceable to the Center for Disease Conrtrol and Prevention (CDC) test method.31\S\30Xjgbkh42-56CT-Zugqt [place] [facility] DO Work Phone: Comment on above:HDL CHOL ATP-III CLASSIFICATION Cardiovascular Risk HDL > or equal to 60 mg/dL LOW HDL < 40 mg/dL HIGHNegative NormalNegativeMP-[facility] [address] DO Work Phone: Comment on above:This is a duplicate Aishwarya SARS Antigen (GENEVA) result to be used for statistical tracking purpose only.PERFORMED BY:[place] [address] [place], [place] [phone] MEDICAL DIRECTORSUNNY RANDALL M.D.Platelet mean volume Auto (Bld) [Entitic vol]Ordered By: Norm Jackson on 60-51-4860Xzseszyl mean volume (Bld) [Entitic vol]8.0 fL6.6-10.1FC[facility] Platelet poor plasma international normalized ratio (INR) by coagulation assay (relatOrdered By: Norm Jackson on 75-49-2120JWZ Coag (PPP) [Relative time]1.0 {INR} [facility] SystemComment on above:INR Therapeutic Range A) Pre- and Peroperative OAT started two weeks before surgery. NOT HIP SURGERY: 1.5 - 2.5 HIP SURGERY: 2 - 3 B) Primary and secondary prevention of venous THROMBOSIS: 2 - 3 C) Active venous thrombosis, pulmonary embolism and prevention of recurrent venous thrombosis: 2 - 3 D) Prevention of arterial thromboembolism including patients with mechanical heart valves: 3 - 4.5INR Therapeutic Range A) Pre- and Peroperative OAT started two weeks before surgery. NOT HIP SURGERY: 1.5 - 2.5 HIP SURGERY: 2 - 3B) Primary and secondary prevention of venous THROMBOSIS: 2 - 3C) Active venous thrombosis, pulmonary embolismand prevention of recurrent venous thrombosis: 2 - 3D) Prevention of arterial thromboembolismincluding patients with mechanical heart valves: 3 - 4.5Platelets Auto (Bld) [#/Vol]Ordered By: Norm Jackson on 16-90-2519Twcqgkibq (Bld) [#/Vol]240 10*3/cV602-389LgzvsrgwzTrinity Health SystemRBC Auto (Bld) [#/Vol]Ordered By: Norm Jackson on 78-25-5369DNI (Bld) [#/Vol]4.61 10*6/uL3.90-5.60Zanesville City Hospitalerum or plasma chloride measurement (moles/volume)Ordered By: Norm Jackson on 91-77-9835Lgxjqtcs [Moles/Vol]102 mmol/P79-586ZjxgdapmcZanesville City Hospitalerum or plasma high density lipoprotein (HDL) cholesterol measurementOrdered By: Norm Jackson on 27-82-7619Seczmrehoxn in HDL [Mass/Vol]31 mg/qC19-94QlwqtsannTrinity Health SystemComment on above:HDL CHOL ATP-III CLASSIFICATION Cardiovascular Risk HDL > or equal to 60 mg/dL LOW HDL < 40 mg/dL HIGHHDL CHOL ATP-III CLASSIFICATION Cardiovascular RiskHDL > or equal to 60 mg/dL LOWHDL < 40 mg/dL HIGHSerum or plasma potassium measurement (moles/volume)Ordered By: Norm Jackson on 03-66-9212Jbyojhukv [Moles/Vol]5.0 mmol/L 3.5-5.1FGenesis Hospitalerum or plasma sodium measurement (moles/volume)Ordered By: Norm Jackson on 43-85-3641Psrpgm [Moles/Vol]136 mmol/L 136-146Zanesville City Hospitalerum or plasma total carbon dioxide measurement (moles/volume)Ordered By: Norm Jackson on 45-86-3059OQ4 [Moles/Vol]27.8 mmol/L22.0-30.0Z[facility]ville City Hospitalerum or plasma total cholesterol/high density lipoprotein (HDL) cholesterol mass ratOrdered By: Norm Jackson on 84-91-3438Ylyuqwlrdim.total/Cholesterol in HDL [Mass ratio]3.8 {ratio}<5.0Zanesville City Hospitalerum or plasma urea nitrogen measurement (mass/volume)Ordered By: Norm Jackson on 13-21-7372Ragg nitrogen [Mass/Vol]7 mg/dL9-23Tr[facility] Health SystemTriglyceride [Mass/volume] in Serum or PlasmaOrdered By: Norm Jackson on 52-74-2590Demfywjengwc [Mass/Vol]208 mg/vT40-389DmabnijckTrinity Health SystemComment on above:TRIG ATP III CLASSIFICATION TRIG less than 150 mg/dL Normal TRIG 150-199 mg/dL Borderline high TRIG 200-500 mg/dL High TRIG greater than 500 mg/dL Very high Standard traceable to the Center for Disease Conrtrol and Prevention (CDC) test method.TRIG ATP III CLASSIFICATIONTRIG less than 150 mg/dL NormalTRIG 150-199 mg/dL Borderline highTRIG 200-500 mg/dL High TRIG greater than 500 mg/dL Very highStandard traceable to the Center for Disease Conrtrol and Prevention (CDC) test method.NOH CARDIAC STRESS/REST INJECTIONon 03-52-1319DOM CARDIAC STRESS/REST INJECTIONMRN: [id number] Patient Name: FUNMILAYO ZAID STUDY: MYOCARDIAL PERFUSION STRESS TEST WITH LEXISCAN Performing facility: [facility], [address], [address], [place] [address] [facility] Provider: NONE PCP: Dr. aTyler Villasenor Supervising provider: Davis Adame DO, [facility] INDICATION: SOB; Pre-operative risk assessment for Lung scheduled at [place] on TBD. HISTORY: Gender: M; Age: 61 y/o ; Height: 175.26 cm; Weight: 590.8334500 kg. CAD; High Cholesterol; Previous MS; SOB; Lung mass Denies smoking. CABG on 2020. Cardiac catheterization on 2020. PTCA on 2020. COMPARISON: No comparison. ACCESSION NUMBER(S): [id number]; [id number]; [id number] ORDERING CLINICIAN: WALT BARRAGAN TECHNIQUE: ONE DAY [...] study available for comparison. Electronically signed by: Toby CORNELLPikes Peak Regional HospitalNo Panel Informationon 18-66-0967ZmvgneDF-[place] [facility] [address] [place] Work Phone: Office Visit (Cardiology)on 74-36-3428Pyicqb-up visit Diagnoses/Problems Assessed CAD (coronary artery disease) [...] Weight Tips; Status:Complete - Retrospective Authorization; Done: [id number] Some eating tips that can help you lose weight.; Status:Complete - Retrospective Authorization; Done: [id number] Hyperlipidemia Renew: Atorvastatin Calcium 80 MG Oral Tablet; TAKE 1 TABLET AT BEDTIME SocHx: Former smoker Tobacco Use Screening; Status:Complete; Done: [id number] Patient Instructions By signing my name below, I, Fany Samuel LPN, attest that this documentation has been prepared [...] 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 Vitals Vital Signs Recorded: 59Wbx8338 11:13AM Heart Rate62, L Radial Vlfbtphc132, LUE, Sitting Xatgszstm78, LUE, Sitting Height5 ft 9 in Fsxiak605 lb BMI Noymyrmdcd78.93 kg/m2 BSA Calculated2.16 Tobacco Useb) No PHQ-2 #1. Over the last 2 weeks have you felt down, depressed or hopeless? (If yes, answer PHQ-9 below)No PHQ-2 #2. Over the last 2 weeks have you felt little interest or pleasure in doing things? (If yes,answer PHQ-9 below)No Physical Exam Constitutional: alert and [...] murmurs , pedal pulses (more content not included)...NormalUH TouchworksTobacco Screening.on 50-42-2183Ipysb depression screening assessmentNo-[facility] 250 DO Work Phone: Tobacco use status CPHSb) NoM-[facility] [place] 250 DO Work Phone: Laboratory - CoagulationOrdered By: Demetrio Floyd on 43-55-6824JQ Coag (PPP) [Time]11.3 s9.0-12.9[facility] Platelet poor plasma international normalized ratio (INR) by coagulation assay (relatOrdered By: Demetrio Floyd on 83-02-0107XNV Coag (PPP) [Relative time] 1.0 {INR}[facility] Health SystemComment on above:INR Therapeutic Range A) Pre- and Peroperative OAT started two weeks before surgery. NOT HIP SURGERY: 1.5 - 2.5 HIP SURGERY: 2 - 3B) Primary and secondary prevention of venous THROMBOSIS: 2 - 3C) Active venous thrombosis, pulmonary embolismand prevention of recurrent venous thrombosis: 2 - 3D) Prevention of arterial thromboembolismincluding patients with mechanical heart valves: 3 - 4.5Platelets Auto (Bld) [#/Vol]Ordered By: Demetrio Floyd on 15-65-3081Sdqrhcqok (Bld) [#/Vol]207 10*3/yN879-160MfcjmhxydTrinity Health SystemGlucose Glucometer (BldC) [Mass/Vol]Ordered By: Mickie Das on 08-12-0128Xbybpja [Mass/Vol]113 mg/dLTrinity Health SystemComment on above:Random Glucose Reference Range is dependent on time and content of last meal. Glucose of more than 200 mg/dL in a nonstressed, ambulatory subject supports the diagnosis of Diabetes Mellitus.No Panel InformationOrdered By: Mickie Das on 82-01-8179Dhpsocj Glucose CommentGlu2: cleaned meterTrinity Health System Vital Signs Date TimeVital SignValuePerforming IfhdktbsaOahvaulc78-98-5555 14:52-0400Body qexdlt240.[address]09-09-2025 14:52-0400Body mass index (BMI) [Ratio]34.85 kg/m[address]09-09-2025 14:52-0400Body bxedin619.[address]09-09-2025 14:52-0400Diastolic blood alizdims12 mm[Hg][address] 07-07-2025 14:52-0400Heart rate87 /min[address]09-09-2025 14:52-0400Systolic blood ykzergdx667 mm[Hg][address] 02-20-2025 09:42-0400Body xxwyte862.3 Dale Birmingham MD Work Phone: [facility]04-25-2025 09:42-0400Body mass index (BMI) [Ratio]34.86 kg/f1PsmupCornelio Birmingham MD Work Phone: [facility]04-25-2025 09:42-0400Body krouhtmfjgt08.01 [degF]Cornelio Birmingham MD Work Phone: [facility]04-25-2025 09:42-0400Body ifjpjb934.14 kgCornelio Birmingham MD Work Phone: [facility]04-25-2025 09:42-0400Diastolic blood jkwcstik46 mm[Hg]Cornelio Birmingham MD Work Phone: [facility]04-25-2025 09:42-0400Heart rate 63 /minCornelio Birmingham MD Work Phone: [facility]04-25-2025 09:42-0400 Respiratory rate18 /minCornelio Birmingham MD Work Phone: [facility]04-25-2025 09:42-3192LhG3% (BldA) [Mass fraction]98 %Cornelio Birmingham MD Work Phone: [facility]04-25-2025 09:42-0400Systolic blood nmngvnxe533 mm[Hg]Cornelio Birmingham MD Work Phone: [facility]02-11-2025 14:28-0500Body wapkbo379.53 cmBrittany Arzola IMPORT/EXPORT AGENT-C Work Phone: [facility]02-11-2025 14:28-0500 Body mass index (BMI) [Ratio]35.6 kg/v2Kqugjujz Arzola IMPORT/EXPORT AGENT-C Work Phone: [phone]-[facility]02-11-2025 14:28-0500 Body uvwifh477.13 kgBrittany Arzola IMPORT/EXPORT AGENT-C Work Phone: [facility]02-11-2025 14:28-0500 Diastolic blood vonjozyj60 mm[Hg]Ksenia Arzola IMPORT/EXPORT AGENT-C Work Phone: [facility]02-11-2025 14:28-0500 Heart rate81 /minBrittany Arzola IMPORT/EXPORT AGENT-C Work Phone: [facility]02-11-2025 14:28-0500 Respiratory rate20 /minBrittany Arzola IMPORT/EXPORT AGENT-C Work Phone: [phone]02-11-2025 14:28-0500 SaO2% (BldA) [Mass fraction]96 %Ksenia Arzola IMPORT/EXPORT AGENT-C Work Phone: [phone] [place], [place] 4967602-11-2025 14:28-0500 Systolic blood ojgwcqzd473 mm[Hg]Ksenia Arzola IMPORT/EXPORT AGENT-C Work Phone: [facility]02-04-2025 14:16-0500 Body mzwvav619.3 cmKsenia Arzola IMPORT/EXPORT AGENT Work Phone: [facility]ultonBjlrqgfyoz72-43-0313 14:16-0500Body mass index (BMI) [Ratio]35.81 kg/b2Ywwpivqg Arzola IMP[employer]/EXPORT AGENT Work Phone: [facility] FultonJhsbwlmsto50-91-7823 14:16-0500Body temperature 97.11 [degF]Ksenia Arzola IMPORT/EXPORT AGENT Work Phone: [facility] FultonPdxgmmdkth83-03-3444 14:16-0500Body ezvwmk972 kg Ksenia Arzola IMPORT/EXPORT AGENT Work Phone: [facility] FultonOlxnewznmn22-61-8158 14:16-0500Diastolic blood gzlwkvge93 mm[Hg]Ksenia Arzola IMPORT/EXPORT AGENT Work Phone: [facility] FultonFiqmqazbyr53-23-9891 14:16-0500Heart rate91 /min Ksenia Arzola IMP[employer]/EXPORT AGENT Work Phone: [facility] FultonAzsxlezapm26-11-2577 14:16-0500Respiratory rate16 /minBrhallie Arzola IMPORT/EXPORT AGENT Work Phone: [facility] FultonOgwpmjavnh00-52-5592 14:16-1970PxQ0% (BldA) [Mass fraction]96 %Ksenia Arzola IMPORT/EXPORT AGENT Work Phone: [facility] FultonZsoadhwsnq12-95-6319 14:16-0500Systolic blood lqesckdn678 mm[Hg]Ksenia Arzola IMPORT/EXPORT AGENT Work Phone: [facility] FultonIcggtoqzxq91-91-7345 11:31-0500Body bvasaw756.3 cmWijasmin Jackson DO Work Phone: [facility]01-30-2025 11:31-0500 Body mass index (BMI) [Ratio]36.03 kg/j4LnfjaxvWalt Jackson DO Work Phone: [facility]01-30-2025 11:31-0500 Body vdtivh843.68 kgWijasmin Jackson DO Work Phone: [facility]01-30-2025 11:31-0500 Diastolic blood jfneaxpg46 mm[Hg]Walt Jackson DO Work Phone: [address] [place], [place] 1444501-30-2025 11:31-0500 Heart rate60 /minWalt Jackson DO Work Phone: [facility]01-30-2025 11:31-0500 Systolic blood kudeisnp909 mm[Hg]Walt Jackson DO Work Phone: [facility]12-31-2024 10:50-0500 Diastolic blood mm[Hg]Ksenia Arzola IMP[employer]/EXPORT AGENT-C Work Phone: [facility]12-31-2024 10:50-0500 Heart rate66 /minBrittany Arzola IMPORT/EXPORT AGENT-C Work Phone: [facility]12-31-2024 10:50-0500 Respiratory rate20 /minBrittany Arzola IMPORT/EXPORT AGENT-C Work Phone: [facility]12-31-2024 10:50-0500 SaO2% (BldA) [Mass fraction]97 %Ksenia Arzola IMPORT/EXPORT AGENT-C Work Phone: [facility]12-31-2024 10:50-0500 Systolic blood rubnqvfy041 mm[Hg]Ksenia Arzola IMPORT/EXPORT AGENT-C Work Phone: [phone] [place], [place] 3501012-31-2024 08:53-0500 Body rkgpia872.26 cmBrhallie Evanstrick IMPORT/EXPORT AGENT-C Work Phone: [phone]12-31-2024 08:53-0500 Body .86 kgBrhallie Salcedopatrick IMPORT/EXPORT AGENT-C Work Phone: [phone]12-03-2024 09:12-0500 Body rgucla797.3 cmBrhallie Arzola IMPORT/EXPORT AGENT Work Phone: [facility] FultonHiccmfbpmc10-75-9191 09:12-0500Body mass index (BMI) [Ratio]35.77 kg/m8Oszqsvta Arzola IMPORT/EXPORT AGENT Work Phone: [facility] FultonCifyzblbiv77-28-5515 09:12-0500Body temperature 96.1 [degF]Ksenia Evanstrick IMP[employer]/EXPORT AGENT Work Phone: [phone] FultonJbcokqpxfg54-09-0019 09:12-0500Body frmfhu352.86 kgBrhallie Arzola IMPORT/EXPORT AGENT Work Phone: [facility] FultonLxavwxslqd42-19-4212 09:12-0500Heart rate75 /min Ksenia Evanstrick IMP[employer]/EXPORT AGENT Work Phone: [facility] FultonTtwbckviln05-37-5802 09:12-0500Respiratory rate16 /minBrhallie Salcedopatrick IMPORT/EXPORT AGENT Work Phone: [phone] FultonAiuetdipnq20-46-2902 09:12-9770XcY4% (BldA) [Mass fraction]97 %Ksenia Salcedopatrick IMPORT/EXPORT AGENT Work Phone: [facility] FultonNgarqsyfaf67-27-8431 08:57-0500Body mass index (BMI) [Ratio]36.18 kg/i6Cuvbg Barahona IMPORT/EXPORT AGENT Work Phone: noWashington [facility] CenterArejhoowan05-15-3491 08:57-0500Body xblerj734.13 kgSahoma Barahona IMPORT/EXPORT AGENT Work Phone: [place] [address]Coaiphmgzc58-42-7733 08:57-0500Diastolic blood ekkpsqjm15 mm[Hg]Mary Barahona IMPORT/EXPORT AGENT Work Phone: noWashington [facility] CenterAetbuftazd34-93-6198 08:57-0500Heart rate67 /min Mary Barahona IMPORT/EXPORT AGENT Work Phone: [place] [address]Yfmeiwapwh26-67-8127 08:57-4763DrX3% (BldA) [Mass fraction]97 %Mary Barahona IMPORT/EXPORT AGENT Work Phone: [facility] FultonZajelmsqlg51-17-4438 08:57-0500Systolic blood mpablbws804 mm[Hg]Mary Barahona IMPORT/EXPORT AGENT Work Phone: noWashington [facility] CenterUzacfanrgy61-53-5107 14:14-0500Body zmeuca051.3 cmTmin Casiano MD Work Phone: [facility]11-26-2024 14:14-0500Body mass index (BMI) [Ratio]36.18 kg/e8VnymbxsVeena Casiano MD Work Phone: [facility]11-26-2024 14:14-0500Body omgwvj094.13 kgVeena Casiano MD Work Phone: [facility]11-26-2024 14:14-0500Diastolic blood wvsoemez49 mm[Hg]Veena Casiano MD Work Phone: [facility]11-26-2024 14:14-0500Heart rate 64 /minVeena Casiano MD Work Phone: [facility]11-26-2024 14:14-0500Systolic blood kgvawmgu037 mm[Hg]Veena Casiano MD Work Phone: [facility]11-19-2024 10:43-0500Body jqydsy876.86 kgShaikh Lexi RODRIGUEZ Work Phone: [facility]10-28-2024 15:11-0400 Body .3 Carey Mckeon DO Work Phone: noMS Pinsddbuym08-00-5630 15:11-0400Body mass index (BMI) [Ratio]35.88 kg/o4Vxkhtpcirht Linda DO Work Phone: [facility] FultonAotthlurim19-75-2807 15:11-0400Body beepri603.22 kgChristopher Linda DO Work Phone: [facility] FultonWntqkoylny16-53-7083 15:11-0400Diastolic blood mm[Hg]Christopher Linda DO Work Phone: [facility] FultonZcsfgjpkox69-14-5512 15:11-0400Heart rate68 /min Christopher Linda DO Work Phone: [facility] FultonBplbdmtwtm98-04-4197 15:11-9150PqH6% (BldA) [Mass fraction]96 %Christopher Linda DO Work Phone: [facility] FultonWenfoeafmi67-06-8351 15:11-0400Systolic blood mm[Hg]Christopher Linda DO Work Phone: [facility] FultonIjkstgfvyd61-39-4600 13:23-0400Body fbeazy824.3 Dale Birmingham MD Work Phone: [facility]10-24-2024 13:23-0400Body mass index (BMI) [Ratio]36.16 kg/l3JluexCornelio Birmingham MD Work Phone: [facility]10-24-2024 13:23-0400Body ipntqxuefbx53.1 [degF]Cornelio Birmingham MD Work Phone: [facility]10-24-2024 13:23-0400Body pnrwyg393.13 kgCornelio Birmingham MD Work Phone: [facility]10-24-2024 13:23-0400Diastolic blood xecrzgwz87 mm[Hg]Cornelio Birmingham MD Work Phone: [facility]10-24-2024 13:23-0400Heart rate 81 /minCornelio Birmingham MD Work Phone: [facility]10-24-2024 13:23-0400 Respiratory rate18 /Murali Birmingham MD Work Phone: [facility]10-24-2024 13:23-8198TbJ7% (BldA) [Mass fraction]98 %Cornelio Birmingham MD Work Phone: [facility]10-24-2024 13:23-0400Systolic blood okobmfwk950 mm[Hg]Cornelio Birmingham MD Work Phone: [facility]10-10-2024 08:26-0400Body ozvoxl961.53 cmTr[facility] Health System10-10-2024 08:26-0400Body mass index (BMI) [Ratio]34.9 kg/x1OiehseaysTrinity Health System10-10-2024 08:26-0400Body ruoggj658.86 kgTrinity Health System10-10-2024 08:26-0400Diastolic blood smfeacnn70 mm[Hg][facility] 08-07-2024 08:26-0400Heart rate64 /[facility] 08-07-2024 08:26-0400Inhaled oxygen flow rate64 L/[facility]10-10-2024 08:26-0400Respiratory rate20 /[facility]10-10-2024 08:26-9222MkF7% (BldA) [Mass fraction]95 %[facility]10-10-2024 08:26-0400Systolic blood rguiaihk297 mm[Hg][facility]09-30-2024 10:39-0400Body mass index (BMI) [Ratio]35.44 kg/k5Yxsypffd Arzola IMPORT/EXPORT AGENT Work Phone: [facility] FultonLdwzxubrch73-41-8072 10:39-0400Body temperature 97.59 [degF]Ksenia Salcedopatrick IMPORT/EXPORT AGENT Work Phone: [facility] FultonJrerbmyfeq73-37-6617 10:39-0400Body fcmpga850.86 kgKsenia Salcedopatrick IMPORT/EXPORT AGENT Work Phone: noWashington [facility] CenterAfapjzfgtu98-53-7397 10:39-0400Diastolic blood otwsugnj93 mm[Hg]Ksenia Arzola IMP[employer]/EXPORT AGENT Work Phone: no[facility] CenterSruvgklezu41-83-7640 10:39-0400Heart rate72 /min Ksenia Rodriguezk IMP[employer]/EXPORT AGENT Work Phone: no[facility] CenterEdrkbymtgk72-02-8645 10:39-0400Respiratory rate15 /minKsenia Rodriguezk IMPORT/EXPORT AGENT Work Phone: no[facility] CenterOmeslxpfpc86-19-4194 10:39-7705LlL7% (BldA) [Mass fraction]96 %Ksenia Arzola IMP[employer]/EXPORT AGENT Work Phone: no[facility] CenterPhpxkbhciq52-09-0260 10:39-0400Systolic blood jvausnlr999 mm[Hg]Ksenia Arzola IMPORT/EXPORT AGENT Work Phone: [facility] FultonEuvxcqkyac72-09-8452 10:05-0400Body oqpbum503.3 cmChristopher Linda DO Work Phone: no[facility] CenterWjfgywdqxe61-07-4236 10:05-0400Body mass index (BMI) [Ratio]35.29 kg/b0Teagbdmulys Linda DO Work Phone: no[facility] CenterNzejnnrpcw20-52-0578 10:05-0400Body fsdmol521.41 kgChristopher Linda DO Work Phone: no[facility] Medical CenterEkddiwilqf03-29-8836 10:05-0400Diastolic blood nwcjxujh30 mm[Hg]Christopher Linda DO Work Phone: [place] [address]Srdfmvoccl71-80-2773 10:05-0400Heart rate69 /min Christopher Linda DO Work Phone: [place] [address]Caotomtlmg54-60-5195 10:05-2633PgO2% (BldA) [Mass fraction]97 %Christopher Linda DO Work Phone: [place] [address]Lplgcijxow40-27-5356 10:05-0400Systolic blood hgfxjuaf443 mm[Hg]Natty Mckeon DO Work Phone: no[facility] CenterBpqvfdrirq17-42-1394 10:10-0400Body nxjtto506.7 cmKsenia Evanstrick IMPORT/EXPORT AGENT Work Phone: [facility] FultonAwomrzdvbn01-02-6273 10:10-0400Body mass index (BMI) [Ratio]36.34 kg/k4Xylvaqcm Arzola IMPORT/EXPORT AGENT Work Phone: NOW[facility] CenterAudwlnnsvn18-89-3885 10:10-0400Body temperature 97.3 [degF]Ksenia Ascenciozpatrick IMPORT/EXPORT AGENT Work Phone: [facility] FultonAdwhkhmrea41-81-0312 10:10-0400Body acbghu565.41 kgKsenia Salcedopatrick IMPORT/EXPORT AGENT Work Phone: [facility] FultonPjarjegosn82-25-1905 10:10-0400Diastolic blood mm[Hg]Ksenia Ascenciozpatrick IMPORT/EXPORT AGENT Work Phone: [facility] FultonPqiskeyfzq31-05-7080 10:10-0400Heart rate63 /min Ksenia Ascenciozpatrick IMPORT/EXPORT AGENT Work Phone: noWashington [facility] Medical CenterComment on above:96% [id number] 10:10-0400Systolic blood rstktuko450 mm[Hg]Ksenia Ascenciozpatrick [employer] AGENT Work Phone: [facility] [id number] 11:09-0400Body jmsyok665.3 Alexis Casiano MD Work Phone: [facility]05-21-2024 11:09-0400Body mass index (BMI) [Ratio]32.49 kg/h1FdfbfmfVeena Casiano MD Work Phone: [facility]05-21-2024 11:09-0400Body mzczqu30.79 kgVeena Casiano MD Work Phone: [facility]05-21-2024 11:09-0400Diastolic blood atblafgp20 mm[Hg]Veena Oh MD Work Phone: [facility] Center[facility] Pgreun62-62-5922 11:09-0400Heart rate 60 /minVeena Casiano MD Work Phone: [facility] Xrrszi58-83-2420 11:09-0400Systolic blood wnflixdb594 mm[Hg]Veena Casiano MD Work Phone: [facility] Fgspso10-23-6548 08:32-0500Body .5 Dale Birmingham MD Work Phone: [facility] Mdsnds34-53-9566 08:32-0500Body mass index (BMI) [Ratio]32.09 kg/j2VbgtpCornelio Birmingham MD Work Phone: [facility] Dpsuly24-19-5138 08:32-0500Body jshazskjlvc39.5 [degF]Cornelio Birmingham MD Work Phone: [facility] Cslyht23-70-6244 08:32-0500Body .97 kgCornelio Birmingham MD Work Phone: [facility] Btaoyn10-03-7056 08:32-0500Diastolic blood wnmttnik94 mm[Hg]Cornelio Birmingham MD Work Phone: [facility] Kohhbk88-48-3557 08:32-0500Heart rate 82 /minCornelio Birmingham MD Work Phone: [facility] Szmwpo03-12-1059 08:32-0500 Respiratory rate16 /minCornelio Birmingham MD Work Phone: [facility] Vssbyw10-00-1443 08:32-8670JdW6% (BldA) [Mass fraction]98 %Cornelio Birmingham MD Work Phone: [facility] Anakii15-39-2165 08:32-0500Systolic blood mm[Hg]Cornelio Birmingham MD Work Phone: [facility] Rgascf09-29-2510 12:57-0500Body sbgusl508.5 cmBartolother Judie CURATOR OF MANUSCRIPTS-REPACKER Work Phone: [facility] Kpgvyb71-32-3515 12:57-0500Body mass index (BMI) [Ratio]33.19 kg/o0NngjzskAziza Lycnh CURATOR OF MANUSCRIPTS-REPACKER Work Phone: [facility] Atjdfh67-67-0934 12:57-0500Body abdoaf581.42 kgHeather Judie CURATOR OF MANUSCRIPTS-REPACKER Work Phone: [facility] Gmqyek90-54-0808 12:57-0500Diastolic blood wsjkjmym22 mm[Hg]Aziza Lynch CURATOR OF MANUSCRIPTS-REPACKER Work Phone: [facility] Weuxtu60-50-7067 12:57-0500Heart rate 70 /minHeather Judie CURATOR OF MANUSCRIPTS-REPACKER Work Phone: [facility] Fiivzo56-63-9697 12:57-0500Systolic blood fkxolikx232 mm[Hg]Aziza Lynch APRN-REPACKER Work Phone: [facility] Tqajtk46-13-4847 15:50-0500Body yaughi417.5 cmPeggy Green PA Work Phone: [facility] Kvdmql42-92-1956 15:50-0500Body mass index (BMI) [Ratio]33.19 kg/k2MagelikgPeggy Green PA Work Phone: [facility] Rxgmfs78-06-0554 15:50-0500Body .42 kgPeggy Green PA Work Phone: [facility] Hfwigy34-40-7757 15:50-0500Diastolic blood vichapvd46 mm[Hg]Peggy Green PA Work Phone: [facility] Pegdnx86-55-3049 15:50-0500Heart rate 82 /minPeggy Green PA Work Phone: [facility] Hugwhb67-69-6365 15:50-0500Systolic blood cxskeynn818 mm[Hg]Peggy Green PA Work Phone: [facility]12-27-2023 10:30-0500Body ifjqpk717.[address]12-27-2023 10:30-0500Body mass index (BMI) [Ratio]33.19 kg/m[address]12-27-2023 10:30-0500Body okbxap029.[address] [place], [place] 5482710-12-2023 08:30-0400Body height 181.61 cmMickie Das Other [employer] Other 10-12-2023 08:30-0400Body mass index (BMI) [Ratio] 30.67 kg/t7IidkoMickie Hungban Other [employer] Other 10-12-2023 08:30-0400Body hdwymclfjjb23.3 [degF]Mickie Hungирина Other [employer] Other 10-12-2023 08:30-0400Body aexgjt529.15 kgMickie Das Other [employer] Other 10-12-2023 08:30-0400Diastolic blood prlzhppe83 mm[Hg] Mickie Hungирина Other [employer] Other 10-12-2023 08:30-0400Respiratory rate20 /minMickie Das Other [employer] Other 10-12-2023 08:30-6782XcD5% (BldA) [Mass fraction]97 % Mickie Hungban Other [employer] Other 10-12-2023 08:30-0400Systolic blood owvskllm071 mm[Hg] Mickie Hungban Other [employer] Other 12-07-2022 09:52-0500Body axcnlu922.26 Mamie Elliott Work Phone: mp226-2495AP-Gnfus [facility] DO Work Phone: 1(921) 795-598912-07-2022 09:52-0500Body mass index (BMI) [Ratio] 32.86 kg/b5ZjbprkShaikh Lexi Work Phone: mp384-2717ML-Ntsnf [facility] DO Work Phone: 1(209) 109-259312-07-2022 09:52-0500Body surface area Derived from formula2.16 b4DohuqeShaikh Lexi Work Phone: mp668-2752FX-Tohvb [facility] DO Work Phone: 1(835) 135-859512-07-2022 09:52-0500Body xeoqox405.93 kgShaikh Lexi Work Phone: mp745-6516CV-Ulqon [facility] DO Work Phone: 1(280) 181-128712-07-2022 09:52-0500Diastolic blood errxtoye82 mm[Hg] Shaikh Lexi Work Phone: mp218-6928FW-Czsnh [facility] DO Work Phone: 1(432) 596-299712-07-2022 09:52-0500Heart rate66 /Tresa Elliott Work Phone: mp524-3571PS-Scnqc [facility] DO Work Phone: 1(252) 351-228812-07-2022 09:52-0500Systolic blood ufcbfbyw893 mm[Hg] Shaikh Lexi Work Phone: mp036-3593HJ-Hikkq [facility] DO Work Phone: 1(179) 116-297209-30-2022 17:24-0400Diastolic blood ougzrgtl17 mm[Hg] MD Consuelo Villasenor Work Phone: [address] [place], [place] 4156409-30-2022 17:24-0400 Heart rate66 /minMD Consuelo Jacklyn Work Phone: 1(726)[address]09-30-2022 17:24-0400 Respiratory rate18 /minMD Consuelo Jacklyn Work Phone: [phone])[address]09-30-2022 17:24-0400 SaO2% (BldA) [Mass fraction]96 %MD Consuelo Villasenor Work Phone: 1(548)[address]16 [address]09-30-2022 17:24-0400 Systolic blood ejqydzun278 mm[Hg]MD Consuelo Villasenor Work Phone: 1(398)[address] [place], [place] 3354409-30-2022 16:18-0400 Body jcwfdebswoq75.3 [degF]MD Consuelo Villasenor Work Phone: 1(139)[address] [place], [place] 3354409-30-2022 14:14-0400 Body bxustk476.26 cmMD Consuelo Jacklyn Work Phone: 1(646)[address] [place], [place] 3354409-30-2022 05:45-0400 Body .8 kgMD Consuelo Jacklyn Work Phone: 1(086)[address] [place], [place] 3354407-15-2022 14:03-0400 Diastolic blood edxlhwux87 mm[Hg]MD Consuelo Villasenor Work Phone: 1(865)[address]07-15-2022 14:03-0400 Heart rate55 /minMD Consuelo Jacklyn Work Phone: 1(523)[address]07-15-2022 14:03-0400 Respiratory rate16 /minMD Consuelo Jacklyn Work Phone: 1(152)[address]07-15-2022 14:03-0400 SaO2% (BldA) [Mass fraction]97 %MD Consuelo Villasenor Work Phone: 1(141)[address]07-15-2022 14:03-0400 Systolic blood huwppldi204 mm[Hg]MD Cordero Jacklyn Work Phone: [facility]07-14-2022 07:06-0400 Body wocgmy497.8 cmMD Consuelo Jacklyn Work Phone: [facility]07-14-2022 07:06-0400 Body mass index (BMI) [Ratio]31.9 kg/m2MD Consuelo Jacklyn Work Phone: [facility]07-14-2022 07:06-0400 Body ozlwsz766 kgMD Consuelo MolinaJacklyn Work Phone: [phone]07-14-2022 00:00-0400 45 1Clara Serna Jacklyn Work Phone: 1(317) [phone]-Xmmbq [facility] DO Work Phone: Comment on above:DSBAQ17-68-7287 12:00-043260 1Caishwarya Serna Jacklyn Work Phone: 1(563) [phone]-Ttsiz [facility] [place] Work Phone: Comment on above:MCOTKXJB2180-31-8994 16:15-0400Body cidius181.61 cmMickie Das Other [employer] Other 05-11-2022 16:15-0400Body mass index (BMI) [Ratio] 30.25 kg/r9ThuvhMickie Das Other [employer] Other 05-11-2022 16:15-0400Body pavhzvusqms78 [degF]Mickie Hungирина Other [employer] Other 05-11-2022 16:15-0400Body tnnipy53.79 kgMickie Hungирина Other [employer] Other 05-11-2022 16:15-0400Diastolic blood qbeqxbiw78 mm[Hg] Mickie Das Other [employer] Other 05-11-2022 16:15-0400Respiratory rate20 /minMickie Das Other [employer] Other 05-11-2022 16:15-6137GdZ0% (BldA) [Mass fraction]96 % Mickie Das Other [employer] Other 05-11-2022 16:15-0400Systolic blood ahmtpxkb766 mm[Hg] Mickie Das Other [employer] Other 04-26-2022 11:13-0400Body .26 cmNo PCP [facility] DO Work Phone: [phone] 11:13-0400Body mass index (BMI) [Ratio] 32.93 kg/m2No PCP [facility] DO Work Phone: [phone] 11:13-0400Body surface area Derived from formula2.16 m2No PCP [facility] DO Work Phone: 1(852)[phone] 11:13-0400Body xwhukn400.15 kgNo PCP [facility] DO Work Phone: 2(119)[phone] 11:13-0400Diastolic blood opdwaovm61 mm[Hg] No PCP [facility] 250 DO Work Phone: 1(298)301-342-104925-56259057-11-8220 11:13-0400Heart rate62 /minNo PCP [facility] 250 DO Work Phone: 1(999) 960-599904-26-2022 11:13-0400Systolic blood dzdkbyqi659 mm[Hg] No PCP [facility] 250 DO Work Phone: 1(163) 423-657802-02-2022 14:15-0500Body hetexw983.61 cmMickie Das Other [employer] Other 02-02-2022 14:15-0500Body mass index (BMI) [Ratio] 30.53 kg/e1WiowlMickie Das Other [employer] Other 02-02-2022 14:15-0500Body qsijzysrokn91 [degF]Mickie Das Other [employer] Other 02-02-2022 14:15-0500Body suvain175.7 kgMickie Das Other [employer] Other 02-02-2022 14:15-0500Diastolic blood aktdgzzw06 mm[Hg] Mickie Das Other [employer] Other 02-02-2022 14:15-0500Respiratory rate20 /minMickie Das Other [employer] Other 02-02-2022 14:15-2956FqW8% (BldA) [Mass fraction]99 % Mickie Das Other [employer] Other 02-02-2022 14:15-0500Systolic blood urmncybe413 mm[Hg] Mickie Hungban Other [employer] Other 01-31-2022 13:00-0500Heart rate64 /minMD Consuelo Jacklyn Work Phone: 1(216)628-[address] [place], [place] 7400201-31-2022 13:00-0500 Respiratory rate16 /minMD Consuelo Salgadoerhorn Work Phone: 2(593)[address]01-31-2022 13:00-0500 SaO2% (BldA) [Mass fraction]95 %MD Consuelo Draperhorn Work Phone: [phone])[address]01-31-2022 11:40-0500 Diastolic blood lvsihgag65 mm[Hg]MD Consuelo Salgadoerhorn Work Phone: 1(340)[address]16 [address]01-31-2022 11:40-0500 Systolic blood jiksxovi082 mm[Hg]MD Consuelo Draperhorn Work Phone: 1(020)[address] [place], [place] 3354401-31-2022 09:39-0500 Body .26 cmMD Consuelo Salgadoerhorn Work Phone: 1(689)[address] [place], [place] 3354401-31-2022 09:39-0500 Body mass index (BMI) [Ratio]32.6 kg/m2MD Consuelo MolinaJacklyn Work Phone: [phone])[address]01-31-2022 09:39-0500 Body .24 kgMD Consuelo MolinaJacklyn Work Phone: [phone] [place], [place] 3354401-18-2022 11:30-0500 Body xjiuzf674.61 cmCelinedalton Hungирина Other [employer] Other 01-18-2022 11:30-0500Body mass index (BMI) [Ratio] 30.39 kg/f9KcdfwMickie Hungирина Other [employer] Other 01-18-2022 11:30-0500Body uzfnavwfzhw25.9 [degF]Mickie Das Other [employer] Other 01-18-2022 11:30-0500Body qwzaby283.25 kgMickie Das Other [employer] Other 01-18-2022 11:30-0500Diastolic blood jdeusinj38 mm[Hg] Mickie Das Other [employer] Other 01-18-2022 11:30-0500Respiratory rate20 /minMickie Das Other [employer] Other 01-18-2022 11:30-7791XuI4% (BldA) [Mass fraction]96 % Mickie Das Other [employer] Other 01-18-2022 11:30-0500Systolic blood wkkifddt185 mm[Hg] Mickie Das Other [employer] Other Encounters Encounter DateEncounter TypeCare ProviderFacilityStart: 07-07-2025 End: 20-79-3391Uxcnit outpatient visit 25 minutesVeena Casiano MD Work Phone: [facility] Genito-Urinary SurgeonsComment on above:Recurrent UTI (Primary Dx); Kidney stones; Bladder stones; Benign prostatic hyperplasia with lower urinary tract symptoms, symptom details unspecifiedStart: 07-07-2025 End: 98-02-0676kmmsyyfqhjQHUDMRF G [facility] Start: 07-06-2025 End: 63-28-7817btdlzbonqtJBUWIFV G [facility] Centertart: 06-26-2025 End: 42-98-5148Eveqcopvy encounterVeena Casiano MD Work Phone: [facility] Genito-Urinary SurgeonsStart: 68-50-6047rwrodiooifUYXSASG G [facility] Centertart: 02-20-2025 End: 22-78-8800Vfzxmmzarpqsf procedureHua Jung RNDoshonda Mcintyre [facility] - Medical OncologyStart: 02-20-2025 End: 73-14-6138Txqowc outpatient visit 15 minutesCornelio Birmingham MD Work Phone: shonda Mcintyre [facility] - Medical OncologyComment on above: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 (CMS-HCC) (Primary Dx)Start: 02-20-2025 End: 60-33-7296qnzrgmlucyNRMXW N [facility] Hospitaltart: 02-13-2025 End: 04-01-7386Weyvta OnlyHua Jung NANDODoshonda Mcintyre [facility] - Medical OncologyComment on above: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 (CMS-HCC) (Primary Dx); Lung massStart: 01-12-2025 End: 74-33-1366Xnklrk flowsheetSaidan Barahona IMPORT/EXPORT AGENT Work Phone: aNA SANDUSKYStart: 01-12-2025 End: 96-43-0176Uhncht flowsheetSaidan Barahona IMPORT/EXPORT AGENT Work Phone: aNA SANDUSKYStart: 01-12-2025 End: 60-90-6981rugrobqrndREMQT CARROLLNot AvailableStart: 12-25-2024 End: 03-40-2380XpezapQeioood LykinsNOMS CWM FMComment on above:Acute right-sided thoracic back painStart: 12-09-2024 End: 60-49-6425cpzpxvswleYgmlkurtNata Arzola IMPORT/EXPORT AGENT-C Work Phone: [facility] Work Phone: Start: 12-09-2024 End: 86-37-8686Vwqrxkg encounter Farhat Arzola IMPORT/EXPORT AGENT-C Work Phone: [facility] Work Phone: Start: 12-02-2024 End: 34-48-9834lmuhvatyanNRQADKGG N FITZPATRICEarnestSutter Medical Center of Santa Rosatart: 12-02-2024 End: 40-42-3999Gaxdjj outpatient visit 15 minutesKsenia Ascenciozpatrick IMPORT/EXPORT AGENT Work Phone: noms CW FMComment on above: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 (CMS/HCC) (Primary Dx); Acute right-sided thoracic back painStart: 12-02-2024 End: 68-18-4605uuypcpqrxpKAAKUJSE FITZPATRICKNot AvailableStart: 12-02-2024 End: 94-59-9981Egsxtf flowsheetBrittany Arzola IMPORT/EXPORT AGENT Work Phone: noms CWM FMStart: 12-02-2024 End: 80-51-2175Ousqom flowsheetBrittany Arzola IMPORT/EXPORT AGENT Work Phone: noms CWM FMStart: 12-02-2024 End: 69-37-3602Endnobmg Result EncounterKsenia Arzola IMPORT/EXPORT AGENT Work Phone: noms External Department UnsolicitedStart: 11-27-2024 End: 31-77-5762Lyswve outpatient visit [facility] Work Phone: uh FirelandsComment on above:Coronary artery disease involving coronary bypass graft of poarch heart, unspecified whether angina present; ASHD (arteriosclerotic heart disease); ST elevation myocardial infarction (STEMI), unspecified artery (Multi); S/P CABG (coronary artery bypass graft); Status post insertion of drug eluting coronary artery stent; Former smoker; BMI 36.0-36.9,adultStart: 11-27-2024 End: 40-20-3209xrnnsoqkqgKXCVPGMStephens County Hospital AmbulatoryStart: 11-11-2024 End: 03-74-1340Gurseb Dakota ROSADO Work Phone: noms FB ORTHOPAEDICSStart: 11-11-2024 End: 23-90-3181Ahiofc Dakota ROSADO Work Phone: noms FB ORTHOPAEDICSStart: 11-11-2024 End: 05-48-0849Tmbuhc outpatient visit 15 minutesMakatlyn العراقي PA Work Phone: noms FB ORTHOPAEDICSComment on above:Acute pain of left shoulder (Primary Dx); Numbness and tingling in left handStart: 11-11-2024 End: 98-36-8269wddvfpyuuuHXZUGCE J MEYERNot AvailableStart: 51-48-6788Eaf- patient / [facility]At[facility] Arzola IMPORT/EXPORT AGENT-C Work Phone: [facility] Work Phone: Start: 10-28-2024 End: 01-15-4520Tvohuyljb to same day surgery [facility] Centerzpatrick IMPORT/EXPORT AGENT-C Work Phone: [facility] Work Phone: Start: 10-28-2024 End: 50-90-8009ojweqnkqvoPpcvqtaxt L LyFacility:[facility] Hospitaltart: 10-20-2024 End: 89-69-4171Vzjvca flowsheetKyle J Cem PT Work Phone: noms FB PTStart: 10-20-2024 End: 66-27-3890Mydyum flowsheetKyle J Cem PT Work Phone: noms FB PTStart: 10-20-2024 End: 17-24-7557ltyhqfsqbjGtty J Cem PT Work Phone: noms FB PTComment on above:Impingement of left shoulder (Primary Dx)Start: 10-16-2024 End: 21-08-2328Dfqgwv flowsheetKyle J Cem PT Work Phone: noms FB PTStart: 10-16-2024 End: 97-64-5998Nzxpce flowsheetKyle J Cem PT Work Phone: noms FB PTStart: 10-16-2024 End: 65-85-3003hzmbfmbktqSrnw J Cem PT Work Phone: noms FB PTComment on above:Impingement of left shoulder (Primary Dx)Start: 10-09-2024 End: 91-68-7276Xuxtbn flowsheetChristopher Linda DO Work Phone: noms [facility] ROUTEStart: 10-09-2024 End: 47-85-1276Qeqrxj flowsheetChristopher Linda DO Work Phone: noms [facility] ROUTEStart: 48-06-3980kcmixtlxha NATTY LINDANot AvailableStart: 10-09-2024 End: 15-36-4904Yogyzcv encounter procedureChristopher Linda DO Work Phone: noms [facility] ROUTEComment on above:Carpal tunnel syndrome on left (Primary Dx); Arm weakness; Numbness; Arm pain, leftStart: 10-07-2024 End: 36-38-1912Khpwza Dakota ROSADO Work Phone: noms FB ORTHOPAEDICSStart: 10-07-2024 End: 19-46-5067Sfekxm Dakota ROSADO Work Phone: noms FB ORTHOPAEDICSStart: 10-07-2024 End: 29-54-5330Zujwgx outpatient new 45 minutesMakatlyn ROSADO Work Phone: noms FB ORTHOPAEDICSComment on above:Acute pain of left shoulder (Primary Dx); Numbness and tingling in left hand; Impingement of left shoulder; Arm weakness; Arm pain, left; NumbnessStart: 10-07-2024 End: 94-83-8149jzyxxtvpcaEPJZMKI J MEYERNot AvailableStart: 10-06-2024 End: 47-48-5702VglsrqKeyonna Arzola NP Work Phone: noms CWM FMComment on above:Lumbar spondylolysis (Primary Dx); Degeneration of intervertebral disc of lumbar region, unspecified whether pain present; PolyneuropathyStart: 10-06-2024 End: 90-79-1491mbufssywngDwrfgblFredy Whiting MDFacility:KANDACE Perez Start: 09-30-2024 End: 77-87-0750Zggihe flowsRiosarthurever AscencioArzola IMPORT/EXPORT AGENT Work Phone: noms CWM FMStart: 09-30-2024 End: 11-24-8246Fzdopj flowsheetArmandohallie Arzola IMPORT/EXPORT AGENT Work Phone: noms CWM FMStart: 09-30-2024 End: 41-86-7911Ncbiyl outpatient visit 15 minutesKsenia Arzola IMPORT/EXPORT AGENT Work Phone: noms CWM FMComment on above:Gastroesophageal reflux disease, unspecified whether esophagitis present (Primary Dx); Periumbilical abdominal pain; Chronic left shoulder pain; Numbness and tingling in left hand; Diabetes mellitus type 2, noninsulin dependent (CMS/HCC); Paresthesia and pain of extremity; Low back pain potentially associated with radiculopathyStart: 09-30-2024 End: 38-30-5873Gulgks Emma Arzola IMPORT/EXPORT AGENT Work Phone: noms CW FMComment on above:Chronic left shoulder pain (Primary Dx); Numbness and tingling in left handStart: 09-24-2024 End: 21-11-0335Pnrmvgdik encounterAlissa Mila LPNProMedica Physicians Genito- Urinary SurgeonsStart: 09-24-2024 End: 72-48-6434Ldzbeu outpatient visit 25 minutesSahoma Barahona IMPORT/EXPORT AGENT Work Phone: noms NEUROLOGYComment on above:Degeneration of intervertebral disc of lumbar region, unspecified whether pain present (Primary Dx); Abnormal magnetic resonance imaging of lumbar spine; PolyneuropathyStart: 09-24-2024 End: 79-27-7445ptnqnswlvgCNAYH CARROLLNot AvailableStart: 09-23-2024 End: 23-82-5797Rsxigx outpatient visit 25 minutesVeena Casiano MD Work Phone: [facility] Genito-Urinary SurgeonsComment on above:Benign prostatic hyperplasia with lower urinary tract symptoms, symptom details unspecified (Primary Dx); Kidney stonesStart: 98-93-4873xvhjqodrtqXZGRQSF G [facility] Ambulatory PPGStart: 09-23-2024 End: 16-62-0149Guzsuw Lizzie Barahona IMPORT/EXPORT AGENT Work Phone: noms NEUROLOGYStart: 09-23-2024 End: 64-42-0468Hxmgdu [facility] hospitalMarlyn Barahona IMPORT/EXPORT AGENT Work Phone: noms NEUROLOGYStart: 09-16-2024 End: 10-61-4905fuoitjpariTuihfd Fawwad MD Work Phone: [facility] Work Phone: Start: 09-16-2024 End: 16-63-2345Mhgqhbu encounter procedureSlorna Elliott MD Work Phone: [facility] Neurosurgery Work Phone: start: 09-10-2024 End: 54-10-8938Twdzetyvba Rashida Elliott MD Work Phone: [facility] Start: 09-10-2024 End: 69-56-1434srolbmkbdcJjmort Fawwad MD Work Phone: [facility] Work Phone: Start: 09-01-2024 End: 33-38-3218XnzhfgKeyonna Arzola NP Work Phone: noms [facility] FMComment on above:Type 2 diabetes mellitus without complication, without long-term current use of insulin ([facility]) (P rimary Dx)Degeneration of intervertebral disc of lumbar region with discogenic back pain and lower extremity pain (Primary Dx)Start: 08-28-2024 End: 38-07-4786MfrcmjCouhtzcMedina PERAZA Work Phone: [facility] Genito-Urinary SurgeonsComment on above:Med RefillStart: 08-26-2024 End: 71-71-7629mwaxrhyrqjHAACRESFTIB Daphne MCKEONThe Jewish Hospitaltart: 08-25-2024 End: 51-68-6152Cptxzw outpatient visit 25 minutesChristopher Linda DO Work Phone: noms NEUROLOGYComment on above:Polyneuropathy (Primary Dx); Degeneration of intervertebral disc of lumbar region with discogenic back pain and lower extremity pain; Long-term use of high-risk medicationStart: 08-25-2024 End: 40-07-4084lutzvgkwkqCCTUXHGGXVI HASSETTNot AvailableStart: 08-25-2024 End: 92-91-1061Eqalsm flowsheetChristopher Linda DO Work Phone: noms NEUROLOGYStart: 08-25-2024 End: 10-40-4349Cfgdyg flowsheetChristopher Linda DO Work Phone: noms NEUROLOGYStart: 08-23-2024 End: 83-16-4426Xrrpabq encounter procedureMD Shaikh Elliott Work Phone: [facility] [place] Work Phone: Start: 08-23-2024 End: 46-99-7571ivyomolygoJC Shaikh Veliaandi Work Phone: [facility] Work Phone: Start: 08-21-2024 End: 18-39-2067Tqiyfr outpatient visit 25 minutesCornelio Birmingham MD Work Phone: Jesusita Mcintyre [facility] - Medical OncologyComment on above: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 (CMS-HCC) (Primary Dx)Start: 08-21-2024 End: 81-59-0211wgjlngbdbdMVQJF N [facility] Hospitaltart: 08-11-2024 End: 76-10-0989xfuztkvgmeWFXRY N [facility] Hospitaltart: 08-07-2024 End: 02-36-4418rfietvhacfRaayiuyipBluffton Hospital Work Phone: Start: 08-07-2024 End: 66-13-9623Madrynr encounter procedureAtrium Health Physician [facility] Work Phone: Start: 07-30-2024 End: 55-68-7687Dtbwgnrmh encounterPaula Darren WeissPutnam County Memorial Hospital - Medical OncologyStart: 07-28-2024 End: 71-12-3642Mvusrb flowsheetBrittany Arzola IMPORT/EXPORT AGENT Work Phone: N[facility] CWM FMStart: 07-28-2024 End: 60-11-6469Wmruya flowsheetBrittany Arzola IMPORT/EXPORT AGENT Work Phone: NO[facility] CWM FMStart: 07-28-2024 End: 13-29-1708Dyhyjr outpatient visit 15 minutesBrittany Arzola IMPORT/EXPORT AGENT Work Phone: [facility] CWM FMComment on above:Heartburn (Primary Dx); Low back pain potentially associated with radiculopathyStart: 07-28-2024 End: 57-84-3405qddsttwthaMGBRGXWS FITZPATRICKNot AvailableStart: 07-17-2024 End: 23-95-1808Cxwemz flowsheetChristopher Linda DO Work Phone: [facility] ROUTEStart: 07-17-2024 End: 12-26-9661Xfgrtc flowsheetChristopher Linda DO Work Phone: [facility] ROUTEStart: 07-17-2024 End: 42-30-8359Ckzhwux encounter procedureChristopher Linda DO Work Phone: [facility] ROUTEComment on above: Polyneuropathy (Primary Dx); Degenerative disc disease, lumbarStart: 07-17-2024 End: 91-04-0923vhejvmymzzMMWSZLHCKKF HASSETTNot AvailableStart: 07-14-2024 End: 45-48-1701Hwmany flowsheetChristopher Linda DO Work Phone: [facility] R[facility]TEStart: 07-14-2024 End: 59-16-7151Kpcifc flowsheetChristopher Linda DO Work Phone: [facility]TEStart: 07-14-2024 End: 45-62-1306Emnkppfrb Result EncounterChristopher Linda DO Work Phone: [facility] External Department UnsolicitedStart: 07-14-2024 End: 92-09-4866Hngwlo outpatient new 45 minutesChristopher Linda DO Work Phone: [facility] ROUTEComment on above:Degenerative disc disease, lumbar (Primary Dx); Abnormal magnetic resonance imaging of lumbar spine; Lumbar spondylolysisStart: 07-14-2024 End: 89-71-8966fpjimwkcmmPHMZUHHPPZY HASSETTNot AvailableStart: 06-26-2024 End: 40-22-8406Xtmxqo flowsheetBrittany Arzola IMPORT/EXPORT AGENT Work Phone: [facility] FMStart: 06-26-2024 End: 20-33-0853Gwcptv flowsheetBrittany Arzola IMPORT/EXPORT AGENT Work Phone: [facility] CWM FMStart: 06-26-2024 End: 89-13-5823Baulet outpatient visit 15 minutesBrittany Arzola IMPORT/EXPORT AGENT Work Phone: [facility] CWM FMComment on above:Low back pain potentially associated with radiculopathy (Primary Dx); Multiple neurological symptomsStart: 06-26-2024 End: 43-03-1293xbonddetlpPROPGWVT FITZPATRICKNot AvailableStart: 06-17-2024 End: 08-03-2056Imvuq abstractingBrittany Arzola IMPORT/EXPORT AGENT Work Phone: [facility] CWM FMComment on above:Lumbar spondylolysis (Primary Dx)Start: 06-10-2024 End: 19-78-2878Iwmqvakzq Result EncounterShaikh Fawwad MD Work Phone: noms External Department UnsolicitedStart: 06-10-2024 End: 73-24-3920Uhcgfbxvk Result EncounterSlorna Elliott MD Work Phone: noms External Department UnsolicitedStart: 06-06-2024 End: 43-55-7923xzbplsppgxBCYDVZSQ WRIGHTNot AvailableStart: 06-03-2024 End: 87-47-2444uogykzvoazDOVYQGIN WRIGHTNot AvailableStart: 05-29-2024 End: 64-20-0378nlizfxjbueIAWZBLUV WRIGHTNot AvailableStart: 05-27-2024 End: 06-22-6640tkwmnyusvhXBWKJQN KELBLEYNot AvailableStart: 05-26-2024 End: 75-57-3729xvqemftykoIOMSWN FAWWADNot AvailableStart: 05-23-2024 End: 94-78-1626uhuycxhgvcJFEO J SPRIGGSNot AvailableStart: 05-20-2024 End: 39-52-5423xzyxhuuedoEQIJDXEP WRIGHTNot AvailableStart: 05-15-2024 End: 33-27-3987ozejsletobPKUHPG TATTERSALLNot AvailableStart: 05-13-2024 End: 19-46-1366edkinyukueVOGB J SPRIGGSNot AvailableStart: 05-09-2024 End: 46-62-8686lzizivqvzyNOJWEVHX WRIGHTNot AvailableStart: 05-08-2024 End: 59-69-1577yqqxjgpacfAHMRHR TATTERSALLNot AvailableStart: 04-28-2024 End: 27-79-8114vgtgjbhneqJLLO J SPRIGGSNot AvailableStart: 04-14-2024 End: 42-01-2371rlvxfvhuwvGXKXYO FAWWADNot AvailableStart: 03-25-2024 End: 02-84-6126Vrnqxotde Hunter Kim CMAProMedica Physicians CardiologyStart: 03-20-2024 End: 76-15-2001GoozwtCprg Clark RNProMedica Physicians CardiologyComment on above:Med RefillStart: 03-18-2024 End: 59-75-9816Ckwsjc outpatient visit 25 minutesVeena Casiano MD Work Phone: [facility] Genito-Urinary SurgeonsComment on above:Cloudy urine (Primary Dx); Urinary retention; Benign prostatic hyperplasia with lower urinary tract symptoms, symptom details unspecified; Recurrent UTIStart: 03-12-2024 End: 41-78-8245Fvjuxq Anaisclaude Judie PERAZA Work Phone: [facility]ito-Urinary SurgeonsStart: 03-10-2024 End: 51-46-9154Jwyrno OnlyKsenia Salazar Physicians Genito-Urinary SurgeonsComment on above:Cloudy urine (Primary Dx); Painful urinationStart: 03-03-2024 End: 60-49-3423Uklgyxnry encounterKsenia ReinarProMedica Physicians Genito- Urinary SurgeonsStart: 02-18-2024 End: 17-69-5575rbpoatiadiYVWZFJ FAWWADNot AvailableStart: 02-06-2024 End: 12-28-8840Erppxrltg encounterOdilon De Leon CMAProMedica Physicians Genito-Urinary SurgeonsStart: 02-06-2024 End: 89-84-1893dexyzatoldDDWL DUCKETTNot AvailableStart: 30-60-8873Rqwkzdkelley ROSADO Work Phone: [facility] Genito-Urinary SurgeonsStart: 01-08-2024 End: 82-83-9316Abhhuafxl Result EncounterSlorna Elliott MD Work Phone: noms External Department UnsolicitedStart: 01-08-2024 End: 79-35-8584Yhrundhrn Result EncounterSlorna Elliott MD Work Phone: noms External Department UnsolicitedStart: 01-04-2024 Orders Demario Mcintyre [facility] - Medical OncologyComment on above: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 (CMS-HCC) (Primary Dx)Start: 01-04-2024 End: 33-46-9102Gdlwza outpatient visit 25 minutesCornelio Birmingham MD Work Phone: Jesusita Mcintyre [facility] - Medical OncologyComment on above: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 (CMS-HCC) (Primary Dx)Start: 47-28-8117EfwlalWtgcqqu Lynch CURATOR OF MANUSCRIPTS-REPACKER Work Phone: [facility]-Urinary SurgeonsStart: 89-03-2756Tpjeijwhy encounterDavis Pimentel MD Work Phone: [facility]ito-Urinary SurgeonsStart: 12-24-2023 End: 88-62-2342Knfwtj outpatient visit 25 minutesDavis Pimentel MD Work Phone: [facility] Genito-Urinary SurgeonsComment on above:Benign prostatic hyperplasia with lower urinary tract symptoms, symptom details unspecified (Primary Dx)Start: 12-04-2023 End: 23-27-8275mbszradgtgCdsxsdb G Schuster MD Work Phone: [facility] Genito-Urinary SurgeonsComment on above:Nephrolithiasis (Primary Dx)Start: 11-30-2023 End: 59-50-5776pzyiryshtcPGDMLUO Francsico Javier LYNCHTriHealth McCullough-Hyde Memorial Hospitaltart: 11-30-2023 End: 10-85-5516Vjzfmf outpatient visit 15 minutesAziza Lynch CURATOR OF MANUSCRIPTS-REPACKER Work Phone: [facility] Genito-Urinary SurgeonsComment on above:Urinary retention (Primary Dx); Gross hematuriaStart: 42-74-8123Gkioge OnlyPeggy ROSADO Work Phone: [facility]ito-Urinary SurgeonsStart: 11-28-2023 End: 24-45-3860Futrzw outpatient visit 25 minutesPeggy ROSADO Work Phone: [facility] Genito-Urinary SurgeonsComment on above:Bladder stones (Primary Dx); Benign prostatic hyperplasia with lower urinary tract symptoms, symptom details unspecifiedStart: 64-90-9625Ujjujzwab encounterOdilon De Leon CMAProMedica Physicians Genito-Urinary SurgeonsStart: 11-19-2023 End: 88-48-3886dqfoqjbeqtVcfdtpvFredy Whiting MDFacility:PM Jabari Start: 58-29-3527Fwjngk OnlyDavis Pimentel MD Work Phone: [facility]ito-Urinary SurgeonsStart: 91-00-1812Ufitav López PERAZA Work Phone: [facility] Genito-Urinary SurgeonsStart: 10-24-2023 End: 24-14-1408Emfvalo encounter procedurePm Pre-Admission Testing [address] [place] [address] - Pre AdmitComment on above:Preop examination (Primary Dx); Hypertension, unspecified type; Coronary artery disease, unspecified vessel or lesion type, unspecified whether angina present, unspecified whether poarch or transplanted heart; Chronic obstructive pulmonary disease, unspecified COPD type ([facility])Start: 10-24-2023 End: 96-51-9677Evebgxptjuyvo examination donePm[address] SystemStart: 02-54-8334aykzikyoebGucdujla:EU BellevueStart: 08-09-2023 End: 11-51-8771khyfvehvvzHwoba Chaban Other [employer] Other Start: 99-66-2399Xwhgem outpatient visit 25 minutes Mickie DasFPRoshni Pulmonary DiseaseStart: 08-02-2023 End: 97-09-7584zwqssbzrpvQW Shaikh Fawwad Work Phone: [facility] Work Phone: Start: 08-02-2023 End: 37-74-6552Vrwzdjw encounter procedureMD Shaikh Elliott Work Phone: [facility]-MRI [facility] [place] Work Phone: Start: 77-62-4849Xd Naomie Elliott Work Phone: [phone]-RuucjLuverne [facility] 250 DO Work Phone: Start: 77-03-0282If Renewalsunshine Fawwad Work Phone: [phone]-Teajv [facility] 250 DO Work Phone: Start: 02-72-5211Nj RenewalShsunshine Fawwad Work Phone: [phone]-Hxybj [facility] 250 DO Work Phone: Start: 87-08-1166Myktjtgsi encounterScasey county hospitalriver Fawwad Work Phone: [phone]-Sggsi [facility] 250 DO Work Phone: Start: 12-08-2022 End: 75-26-0285akuyhdsdxbVyijz Chaирина Other [employer] Other Start: 77-08-1754Keexczxym encounterKadalton DasFPG Referral CoordinatorStart: 34-75-9289Ck [facility] Joseph's Hospitalsunshine Fawwad Work Phone: [phone]-Bnvqq [facility] 250 DO Work Phone: Start: 28-84-8274xdifqwfothKh. Walt Jackson Facility:[id number]: 61-58-2791Ijvgoq outpatient visit 25 minutessunshine Espinozad Work Phone: [phone]-Hjcyn [facility] 250 DO Work Phone: Start: 54-11-2661efqxoioluoEz. Walt Jackson Facility:[address]Fhgcy: 00-53-6873npnoaziialYbtia Marie SchermerhornFacility:9090 Start: 42-01-8119kpopotnykcTu. Walt JacksonFacility:9090Start: 20-95-3657azzkxtqzdaXnyzf Marie SchermerhornFacility:9090Start: 07-26-2022 End: 26-99-2310Znaihqlepn and management of inpatientMD Consuelo Villasenor Work Phone: [facility] SurgStart: 07-26-2022 End: 22-83-1892lddgcpjyerp encounterMD Consuelo MolinaJacklyn Work Phone: [phone] [place] [address] Ctr Work Phone: Start: 07-26-2022 End: 66-62-6156iswjohytadMFMDIU RODRIGUEZFacility:W6Rfpqq: 00-88-7343Dpcoqhvol encounterClemily Serna Jacklyn Work Phone: [phone]-Ibbwa [facility] 250 DO Work Phone: Start: 09-31-7965VWHKFWwtlb Daphne Jacklyn Work Phone: [phone]-Oydbb [facility] 250 DO Work Phone: Start: 05-30-2022 End: 73-61-1983lzxuywzaljIU JACK HAYFacility:I4Ufsnt: 55-35-5545lcjzhhznoqEk. Walt JacksonFacility:9090Start: 58-49-8986ITQJBVBHP, Provider: Walt Jackson, Status: Pen, Time: 9:00 AMCshellyra Serna Jacklyn Work Phone: [phone]-Goxme [facility] 250 DO Work Phone: Start: 05-12-2022 End: 51-35-2606Waqwvswep to same day surgery centerMD Consuelo MolinaJacklyn Work Phone: [phone] [place] [address] Ctr-Cath LabStart: 58-50-8463Szxrd UpdateClemily Serna Jacklyn Work Phone: [phone]-Fmupt [facility] 250 DO Work Phone: Start: 05-11-2022 End: 11-64-1565Tdahemd encounter procedureMD Consuelo Jacklyn Work Phone: [phone] [place] [address] Kco-Rop-Pxzjtgtl Testing Start: 78-77-7743Xcumxdjrg encounterClemily Villasenor Work Phone: [phone]-Jukas [facility] 250 DO Work Phone: Start: 51-37-6406Xgsrqly encounter procedureClemily Villasenor Work Phone: [phone]-Badom [facility] 250A [place] Work Phone: Start: 03-08-2022 End: 56-38-8164hpvqcapufpGdpdb Chaban Other [employer] Other Start: 57-38-7444Ofzbar outpatient visit 25 minutes Kamal ChaиринаFPG Pulmonary DiseaseStart: 82-13-2853Kcglbv outpatient visit 15 minutesNo PCP [facility] 250 DO Work Phone: Start: 50-38-5771zvfevtucvnSpAlton Jackson Facility:774[address]Wryjx: 02-15-2022 End: 47-90-8338Oyqeejb encounter procedureMD Consuelo Villasenor Work Phone: [facility]-CT Scan [facility] [place] Start: 46-82-5356Uh RenewalReferring Provider [facility] 250 DO Work Phone: Start: 01-25-2022 End: 13-71-4585cbfppoaznlYfnio Chaban Other noAVIcode Other Start: 30-70-4732Dddfmzbka encounterKamal ChabanFPG Pulmonary DiseaseStart: 01-04-2022 End: 94-58-8302Rywmtnx encounter procedureMD Consuelo Villasenor Work Phone: [facility]-Respiratory Therapy Start: 12-26-2021 End: 38-56-6471ihdrwlzjwgUorck Chaban Other noAVIcode Other Start: 66-84-6829Xjoxqxlpn encounterKadalton ChabanFPG Pulmonary DiseaseStart: 12-05-2021 End: 79-64-1406Xpqsnii encounter procedureMD Consuelo Villasenor Work Phone: [facility]-XRay [facility] HospitalStart: 11-30-2021 End: 84-10-1793hueldeekhfLmwce Chaban Other noAVIcode Other Start: 11-66-0076Nbbccp outpatient visit 25 minutes [facility] Buenaventurajuan diego ChabanFPG Pulmonary DiseaseStart: 11-29-2021 End: 37-74-2921Rozouac encounter procedureMD Consuelo Villasenor Work Phone: [facility]-XRay [facility] HospitalStart: 11-28-2021 End: 47-43-9635Wqlvgyzdo to same day surgery centerMD Consuelo Villasenor Work Phone: [facility]-CT Scan [facility] [place] Start: 11-21-2021 End: 30-07-6610Awvphzz encounter procedureMD Consuelo Villasenor Work Phone: [facility]-Pet ScanStart: 11-15-2021 End: 31-60-3814fdexumwdmmQaccn Chaban Other noSimple [employer] Other Start: 11-79-3339Kwoyzc outpatient new 45 minutesdalton ChabanFPG Pulmonary DiseasePatient encounter statusAlbert B. Chandler Hospitalriver Elliott Work Phone: [phone]-Gdlzg [facility] 250 DO Work Phone: Procedures DateProcedureProcedure DetailPerforming ClinicianStart: 27-95-5726WFXAZJJ POST VOID RESIDUALVeena Casiano MD Work Phone: Start: 94-72-5940Nmlfp dip stick/tablet rgnt auto w/o microscopyVeena Casiano MD Work Phone: Start: 20-81-7347Eqotxq-up visitFollow-upCHAROBBIE Jb [place] Start: 42-74-9883Rozwghgm blood count with white cell differential, automated Ksenia Arzola IMPORT/EXPORT AGENT Work Phone: Start: 69-99-1876SdomjzllqvbkecpbghzhkpkqftPlzemxnr Arzola IMPORT/EXPORT AGENT-C Work Phone: Start: 10-09-2024 End: 65-65-1689Pjsfrp emg ea extremty w/paraspinl area completeChristopher Linda DO Work Phone: Start: 83-46-8759Qsylywexesnqou aspir&/inj major jt/bursa w/o usMatthenorm ROSADO Work Phone: Start: 56-53-9263RMS of lumbar spine with contrastMD Shaikh Lexi Work Phone: Start: 07-17-2024 End: 32-47-1583Eizbnf emg ea extremty w/paraspinl area completeChristopher Linda DO Work Phone: Start: 19-14-2042YPZ CREATININEChristopher Linda DO Work Phone: Start: 36-26-8777RR LUMBAR SPINE WO CONSlorna Elliott MD Work Phone: Start: 70-51-5853PEBJEPC POST VOID RESIDUALVeena Casiano MD Work Phone: Start: 99-19-9720RgomwmaqivhLtiwucnegle Linda DO Work Phone: Start: 70-67-6127IX RIGHT UPPER QUADRANTSlorna Elliott MD Work Phone: Start: 87-16-1492Txrqtb-up visitFollow-upHEACLAUDE LYNCHStart: 66-69-4242QXBCDZT POST VOID RESIDUALMichelle Esperanza ROSADO Work Phone: Start: 95-06-1711Glbjb dip stick/tablet rgnt auto w/o microscopyMichelle Esperanza ROSADO Work Phone: Start: 40-04-9829Sepdhyj of coronary artery bypass graftingS/P CABG (coronary artery bypass graft)Walt Jackson DO Work Phone: Start: 35-22-8330Imgudap of placement of stent for coronary artery diseaseStatus post insertion of drug eluting coronary artery stentChristopher Linda DO Work Phone: Start: 92-11-8244Phzpyeq of coronary artery bypass graftingS/P triple vessel bypassChristopher Linda DO Work Phone: Start: 29-94-8609Khbytdz of placement of stent for coronary artery diseaseH/O heart artery stentChristopher Linda DO Work Phone: Start: 64-95-2311WX pre/post mri xray [place] Lexi Work Phone: Start: 05-61-1605FV lumbar spine wo con Lexi Work Phone: Start: 63-88-7366AX Coronary Angio w/graftsMD Consuelo Villasenor Work Phone: Start: 70-15-1847GI Ivus Initial VesselMD Consuelo Villasenor Work Phone: Start: 92-63-9002Xynxute of coronary artery bypass graftingHistory of coronary artery bypass surgeryChristopher Linda DO Work Phone: Start: 49-17-1352HU LHC & COR Angio w/graftsMD Consuelo Villasenor Work Phone: Start: 17-22-6778NFND Antigen (LFIA)MD Consuelo Villasenor Work Phone: Start: 84-48-5856JP of chest without contrastMD Consuelo Villasenor Work Phone: Start: 02-28-7140Wnvfr chest X-rayMD Consuelo Londonn Work Phone: Start: 28-64-5027Uriqu chest X-rayMD Consuelo Villasenor Work Phone: Start: 11-13-5500Ibkrq chest X-rayMD Consuelo Villasenor Work Phone: Start: 64-97-2792Fvuvdp biopsyMD Consuelo Villasenor Work Phone: Start: 66-70-0668Vlesiwjq emission tomography with computed tomographyMD Consuelo Villasenor Work Phone: Biopsy of lungNo PCP NoneCardiac catheterization Referring Provider UnknownCataract surgeryReferring Provider UnknownCoronary artery bypass graftReferring Provider UnknownDental surgical procedureSakilariver Elliott Work Phone: History of coronary artery bypass graftingS/P CABG (coronary artery bypass graft)Referring Provider UnknownHistory of coronary artery bypass graftingHistory of coronary artery bypass graft x 3MD Consuelo Villasenor Work Phone: Comment on above:Problem List clean-up per request of Phys. EHR CmteHistory of coronary artery bypass graftingS/P CABG (coronary artery bypass graft)Walt Jackson DO Work Phone: History of placement of stent for coronary artery diseaseStatus post insertion of drug eluting coronary artery stentReferring Provider UnknownHistory of placement of stent for coronary artery diseaseStatus post insertion of drug eluting coronary artery stentWillmariela Jackson DO Work Phone: Plan of Treatment DateCare ActivityDetailAuthorStart: 91-89-4365Uhmytjlez for malignant neoplasm of colonNOMS HealthcareStart: 46-29-2595Iuwuhswej for malignant neoplasm of colonNOMS HealthcareStart: 07-20-2026 End: 90-06-8804Ulerchz encounter jmczrjirc54/22/2026 1:00 PM EDT Office Visit [facility] [address] [place] [address] [facility] [place] [address] Veena Casiano MD [address] [place] [address] [facility]-Urinary SurgeonsStart: 10-36-5098Gfurz BMI ScreeningAdult BMI ScreeningProMedica Health SystemStart: 96-34-4523Tpeecad ScreeningTobacco ScreeningProMedica Health SystemStart: 07-07-2026 End: 18-20-5873TL Abdomen APX-ray abdomen ap 1 view Imaging Routine Kidney stones Bladder stones Expected: 07/07/2026, Expires:07/07/2027[facility] Work Phone: Comment on above:Expected: 07/07/2026, Expires: 07/07/2027Start: 57-63-5993Rbcgdu Use: CardiovascularStatin Use: Cardiovascular [facility] SystemStart: 73-98-4055Fowqdr Use: DiabeticStatin Use: Diabetic [facility] Health SystemStart: 10-13-5998Bkhnz BMI ScreeningAdult BMI Screening Pro[facility] Health SystemStart: 88-67-7355Jxzkjtv ScreeningTobacco Screening [facility] SystemStart: 12-02-2025 End: 26-48-7439Aesnqds encounter gozwocrwz55/04/2026 9:50 AM EST Office Visit [facility] [address] [phone] Walt Jackson DO 703 [facility] 2, [address] [address] [facility] CenterStart: 09-29-2025 End: 86-80-3481Mphppum encounter bzpsiwdoi68/02/2025 1:45 PM EST Office Visit [facility] [address] [place] [address] A [facility] [place] [address] Veena Casiano MD [address] [place] [address] [facility]-Ur[facility] SurgeonsStart: 50-18-1321Xxacr BMI ScreeningAdult BMI ScreeningProMedica Health SystemStart: 93-42-0474Dljlnzz ScreeningTobacco ScreeningProMedica Health SystemStart: 09-23-2025 End: 14-83-4793WC Abdomen APX-ray abdomen ap 1 view Imaging Routine Benign prostatic hyperplasia with lower urinary tract symptoms, symptom details unspecified Expected: 09/23/2025, Expires: 09/23/2026[facility] Work Phone: Comment on above:Expected: 09/23/2025, Expires: 09/23/2026Start: 08-28-2025 End: 16-74-8786Tvrisww encounter bvtykmtvk26/31/2025 9:15 AM EDT Office Visit Jesusita Francisco Javier Ashraf [facility] [address] [place] [address] Cornelio Birmingham MD [address] [place] [address] [address] [place], [place] [id number] Jesusita Ashraf [facility] - Medical OncologyStart: 46-63-8671Mrpbp BMI ScreeningAdult BMI ScreeningProSelect Medical Special[facility] Northca Health SystemStart: 73-57-6947Lemevxx ScreeningTobacco ScreeningProSelect Medical Specialty [facility] Northca Health SystemStart: 07-29-2025 End: 21-88-5847LG Chest limited W contrast IVCT chest with contrast Imaging Routine 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 (CMS-HCC)Lung mass Expected: 07/29/2025, Expires: 02/20/2026[facility] Work Phone: Comment on above:Expected: 07/29/2025, Expires: 02/20/2026Start: 07-07-2025 End: 67-75-2706Eszgsbcyhrti consultation with zaqgyfo2207/07/2025 3:00 PM EDT Telemedicine [facility] [address] [place] [address] [place] [address] Veena Casiano MD [address] [place] [address] [facility] Genito-Urinary SurgeonsStart: 12-44-8152Yeemnllof vaccinationInfluenza VaccineProtestant Hospital SystemStart: 06-26-2025 End: 38-81-8697Sjmdovvu identified in Urine by CultureProMedica Work Phone: Comment on above:Expected: 06/26/2025 (Approximate), Expires: 06/26/2026Start: 01-54-7099Ewtnx BMI ScreeningAdult BMI Screening [facility] SystemStart: 11-95-1469Gzbrkdh ScreeningTobacco Screening [facility] Greensborotart: 45-06-0750Urngtagaiz A1c measurementDiabetes: Hemoglobin N5SLKKT HealthcareStart: 02-20-2025 End: 50-63-1756Itznfse encounter sawkzyone12/25/2025 10:00 AM EDT Office Visit Jesusita Mcintyre [facility] [address] [place] [address] Cornelio Birmingham MD [address] [place] [id number] Jesusita Mcintyre [facility] - Medical OncologyStart: 02-13-2025 End: 97-06-5145Aygwhvawbb [Mass/volume] in Serum or PlasmaCreatinine, serum Lab Routine 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 (CMS-HCC) Lung mass Expected: 02/13/2025 (Approximate), Expires: 02/13/2026[facility] Work Phone: Comment on above:Expected: 02/13/2025 (Approximate), Expires: 02/13/2026Start: 22-50-6949Ddrdpxpvly hospital visit by physician 02/13/2025 10:39 AM EDT Hospital Encounter [facility] [address] [place] [address] Cornelio Birmingham MD [address] [place] [address] 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 (CMS-HCC); Lung mass [facility] - CT ImagingComment on above: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 (CMS-HCC); Lung massStart: 01-12-2025 End: 50-33-8500Frmstwu encounter procedureNOOH ST NEUROLOGYComment on above: ArrivedStart: 59-27-3358Fprtn BMI ScreeningAdult BMI ScreeningProJack [facility] Health SystemStart: 01-01-2025 End: 01-49-2135Cxjjvqy encounter soawwpdud74/06/2025 10:00 AM EST Office Visit [facility] [address] [place] [address] Ksenia Arzola, CHIP [address] [place] [address] NOMVin PAYNE FMStart: 19-13-0591Riirnet ScreeningTobacco Screening [facility] SystemStart: 02-68-1224Qvqfbsl ScreeningTobacco Screening [facility] Greensborotart: 12-23-2024 End: 46-45-2036Onimend encounter uxivgzyij96/25/2025 10:00 AM EST Office Visit [facility] [address] [place] [address] Ksenia Arzola, CHIP [address] [place] [address] NOMVin PAYNE FMStart: 12-02-2024 End: 28-76-1923Uopwzrm encounter lylkcpjlh79/04/2025 2:30 PM EST Office Visit [facility] FM [address] [place] [address] Ksenia Arzola, IMPORT/EXPORT AGENT [address] [place] [address] [facility] FMComment on above:ArrivedStart: 12-02-2024 End: 83-31-0468LO Chest 2 ViewsXR chest 2 views Imaging Routine 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 (CMS/HCC) Expected: 12/02/2024, Expires: 12/02/2025[facility] Work Phone: Comment on above:Expected: 12/02/2024, Expires: 12/02/2025Start: 12-01-2024 End: 64-55-8315Xsnxzfwmzm A1c/Hemoglobin.total in BloodHemoglobin A1c Lab Routine Diabetes mellitus type 2, noninsulin dependent (CMS/HCC) Expected: 12/01/2024 (Approximate), Expires: 09/30/2025[facility] HealthcareComment on above: Expected: 12/01/2024 (Approximate), Expires: 09/30/2025Start: 89-54-7512Kvbon BMI ScreeningAdult BMI ScreeningProtestant Hospital SystemStart: 76-81-1703Gfezgex ScreeningTobacco ScreeningProtestant Hospital SystemStart: 97-99-8134Mxlvg BMI ScreeningAdult BMI ScreeningProtestant Hospital SystemStart: 54-21-3339Fqszppq ScreeningTobacco ScreeningProtestant Hospital SystemStart: 11-27-2024 End: 07-11-7276Qyvafwc aminotransferase [Enzymatic activity/volume] in Serum or Plasma by With P-5'-PAlanine Aminotransferase Lab Routine Coronary artery disease involving coronary bypass graft of poarch heart, unspecified whether angina present ASHD (arteriosclerotic heart disease) S/P CABG (coronary artery bypass graft) Expected: 11/27/2024, Expires: 11/27/2025[facility] Work Phone: Comment on above:Expected: 11/27/2024, Expires: 11/27/2025Start: 11-27-2024 End: 39-80-0284Drhyhrxmz aminotransferase [Enzymatic activity/volume] in Serum or Plasma by With P-5'-PAspartate Aminotransferase Lab Routine Coronary artery disease involving coronary bypass graft of poarch heart, unspecified whether angina present ASHD (arteriosclerotic heart disease) S/P CABG (coronary artery bypass graft) Expected: 11/27/2024, Expires: 11/27/2025[facility] Work Phone: Comment on above:Expected: 11/27/2024, Expires: 11/27/2025Start: 11-27-2024 End: 41-80-9465Yzdhw 1996 panel - Serum or PlasmaLipid Panel Lab Routine Coronary artery disease involving coronary bypass graft of poarch heart, uns pecified whether angina present ASHD (arteriosclerotic heart disease) S/P CABG (coronary artery bypass graft) Expected: 11/27/2024, Expires: 11/27/2025[facility] Service Area Work Phone: Comment on above:Expected: 11/27/2024, Expires: 11/27/2025Start: 30-92-8223Nbfgtajnml A1c measurementDiabetes: Hemoglobin A1C [facility]: 11-[facility]-2024 End: 60-34-4828Stywhao encounter procedureNOMS FB ORTHOPAEDICSComment on above: Acute pain of left shoulder (Primary Dx); Numbness and tingling in left handStart: 95-29-2678Skcrd BMI ScreeningAdult BMI ScreeningProSelect Medical Specialty Hospital - [facility] Northca Health SystemStart: 49-59-0757Muvmacs ScreeningTobacco ScreeningLakeHealth TriPoint Medical Centerca Health SystemStart: 10-30-2024 End: 53-04-2875tuwbovjjst82/02/2025 11:00 AM EST Treatment [facility] MAIRA PT [address] [place] [address] Christine Lock, TERMINAL MAKEUP OPERATOR [address] [place] [address] [facility]S FB PTStart: 46-71-0125Ebkefyf ScreeningTobacco ScreeningLakeHealth TriPoint Medical Centerca Health SystemStart: 71-93-4297MdjrrezdnZanesville City Hospitaltart: 10-27-2024 End: 00-13-0577ssvwxaylcr24/30/2024 12:00 PM EST Treatment [facility] [place] [address] [place] [address] Junie Priest, PT [address] [place], [place] [phone] NOMS FB PTStart: 14-99-5368Fogpu BMI ScreeningAdult BMI ScreeningLakeHealth TriPoint Medical Centerca [facility] SystemStart: 06-62-1493Ejuqanl ScreeningTobacco ScreeningProSelect Medical Specialty Hospital [facility] Northca [facility] SystemStart: 10-20-2024 End: 75-06-6486rqesbftsvrUPCQ FB PTComment on above:ArrivedStart: 10-16-2024 End: 14-63-4240izswayrgio52/19/2024 1:00 PM EST Evaluation [facility] FB PT [address] [place] [phone] Junie Priest, PT [address] [place] [address] Impingementof left shoulderNOMS FB PTComment on above:Impingement of left shoulderStart: 10-09-2024 End: 41-86-7640Lwoaewh encounter kofbuptwc97/12/2024 12:30 PM EST Procedure Visit [facility] [address] [place] [address], [id number] Natty Mckeon DO [address] [place] [address], [place] [id number] ArrivedNOWAYNE HOSPITAL ROUTEComment on above:ArrivedStart: 10-07-2024 End: 23-37-9309DXE AND NERVE CONDUCTION STUDYEMG AND NERVE CONDUCTION STUDY Neurology Routine Arm weakness Numbness Arm pain, left Expected: 10/07/2024 (Approximate), Expires: 10/07/2025[facility] Work Phone: Comment on above:Expected: 10/07/2024 (Approximate), Expires: 10/07/2025Start: 10-07-2024 End: 03-30-2666Aceietw encounter procedureNOMS FB ORTHOPAEDICSComment on above: Acute pain of left shoulder (Primary Dx); Chronic left shoulder pain; Numbness and tingling in left handStart: 09-30-2024 End: 23-07-6355AMN W Auto Differential panel - BloodCBC and differential Lab Routine Diabetes mellitus type 2, noninsulin dependent (CMS/HCC) Expected: 09/30/2024 (Approximate), Expires: 09/30/2025[facility] HealthcareComment on above: Expected: 09/30/2024 (Approximate), Expires: 09/30/2025Start: 09-30-2024 End: 70-46-4593Ibohxodghqlfe metabolic 2000 panel - Serum or PlasmaComprehensive metabolic panel Lab Routine Diabetes mellitus type 2, noninsulin dependent (CMS/HCC) Expected: 09/30/2024 (Approximate), Expires: 09/30/2025[facility] Comment on above:Expected: 09/30/2024 (Approximate), Expires: 09/30/2025Start: 09-30-2024 End: 89-86-2719PS Shoulder - left 2 ViewsXR shoulder 2+ views left Imaging Routine Chronic left shoulder pain Numbness and tingling in left hand Expected: 09/30/2024, Expires: 09/30/2025[facility] Work Phone: Comment on above:Expected: 09/30/2024, Expires: 09/30/2025Start: 09-30-2024 End: 55-45-7177Ltifquf encounter procedureNOOH CW FMComment on above:Arrived Start: 09-24-2024 End: 39-21-5954Lfedqav encounter fpecqejzj84/27/2024 9:00 AM EST Office Visit [facility] [address] [address] Mary Barahona NP [address] [facility] [address] [place] [address] NOMS NEUROLOGYStart: 09-23-2024 End: 10-86-9358Wvmnnio encounter zrusprmgo40/26/2024 2:15 PM EST Office Visit [facility] [address] [facility] [place] [address] Veena Casiano MD [address] [place] [address] [facility]ito-Urinary SurgeonsStart: 09-23-2024 End: 32-21-3190Oanppxq encounter xqowczqbd85/26/2024 11:20 AM EST Office Visit [facility]UR[facility] [address] [phone] Mary Barahona, CHIP [address] [place] [address] [facility] NEUROLOGYStart: 08-25-2024 End: 75-15-1174Uvijcojmb (Vitamin B12) [Mass/volume] in Serum or PlasmaVitamin B12 Lab Routine Polyneuropathy Long-term use of high-risk medication Expected: 08/25/2024 (Approximate), Expires: 08/25/2025[facility] HealthcareComment on above: Expected: 08/25/2024 (Approximate), Expires: 08/25/2025Start: 08-25-2024 End: 91-79-0367Atnppz, serumCopper, serum Lab Routine Polyneuropathy Long-term use of high-risk medication Expected: 08/25/2024(Approximate), Expires: 08/25/2025[facility] HealthcareComment on above:Expected: 08/25/2024 (Approximate), Expires: 08/25/2025Start: 08-25-2024 End: 71-20-5486Fnkhmbsopa A1c/Hemoglobin.total in BloodHemoglobin A1c Lab Routine Polyneuropathy Long-term use of high-risk medication Expected: 08/25/2024 (Approximate), Expires: 08/25/2025[facility] Healthcare Work Phone: comment on above:Expected: 08/25/2024 (Approximate), Expires: 08/25/2025Start: 08-25-2024 End: 00-67-7227Wuhnyfpcksczgk electrophoresisImmunofixation electrophoresis Lab Routine Polyneuropathy Long-term use of high-risk medication Expected: 08/25/2024 (Approximate), Expires: 08/25/2025[facility] HealthcareComment on above: Expected: 08/25/2024 (Approximate), Expires: 08/25/2025Start: 08-25-2024 End: 03-41-5851Zubsat Ab [Presence] in Serum by RPRRPR Lab Routine Polyneuropathy Long-term use of high-risk medication Expected: 08/25/2024 (Approximate), Expires: 08/25/2025[facility] HealthcareComment on above:Expected: 08/25/2024 (Approximate), Expires: 08/25/2025Start: 08-25-2024 End: 65-26-5527Rtnwcykhulj [Units/volume] in Serum or PlasmaTSH Lab Routine Polyneuropathy Long-term use of high-risk medication Expected: 08/25/2024 (Approximate), Expires: 08/25/2025[facility] HealthcareComment on above:Expected: 08/25/2024 (Approximate), Expires: 08/25/2025Start: 08-25-2024 End: 57-58-7902Qufptoc M6Qctudyl B6 Lab Routine Polyneuropathy Long-term use of high-risk medication Expected: 08/25/2024 (Approximate), Expires: 08/25/2025[facility] HealthcareComment on above:Expected: 08/25/2024 (Approximate), Expires: 08/25/2025Start: 08-25-2024 End: 15-69-1587Uzjkhke encounter procedureNORUSSELLVILLE HOSPITAL NEUROLOGYComment on above: ArrivedStart: 08-21-2024 End: 68-49-2143Kmtpwqk encounter qobhksdbd00/24/2024 1:30 PM EDT Office Visit Jesusita Ashraf [facility] - Medical Oncology [address] [place] [address] Cornelio Birmingham MD [address] [facility] [address] [place] [address] Jesusita Ashraf [facility] - Medical OncologyStart: 08-11-2024 End: 68-64-5680Vhakdlt encounter procedureNOWAYNE HOSPITAL ROUTEStart: 07-31-2024 End: 43-02-2080Ogpyjhg encounter /03/2024 10:15 AM EDT Office Visit Jesusita Ashraf [facility] - Medical Oncology [address] [place] [address] Cornelio Birmingham MD [address] [facility] [address] [place], [place] [phone] Jesusita Ashraf [facility] - Medical OncologyStart: 07-28-2024 End: 90-83-4910Qbwkzno encounter procedureNOWAGONER [facility] FMComment on above:Arrived Start: 07-24-2024 End: 77-75-1418Coratla encounter ddqtnlkde13/26/2024 9:00 AM EDT Office Visit [facility] [address] [address] Ksenia Arzola NP [address] [place] [address] [facility] CWM FMStart: 07-17-2024 End: 05-79-6957Aczzcht encounter procedureNOWAYNE HOSPITAL ROUTEComment on above:ArrivedStart: 07-14-2024 End: 80-34-4985Aniqyliolb [Mass/volume] in Serum or PlasmaCreatinine, Serum Lab Routine Degenerative disc disease, lumbar Abnormal magnetic resonance imagingof lumbar spine Lumbar spondylolysis Expected: 07/14/2024 (Approximate), Expires: 07/14/2025[facility] Work Phone: comment on above:Expected: 07/14/2024 (Approximate), Expires: 07/14/2025Start: 07-14-2024 End: 59-95-0269AOD 2 ExtremitiesEMG 2 Extremities Neurology Routine Degenerative disc disease, lumbar Abnormal magnetic resonance imaging of lumbar spine Lumbar spondylolysis Expected: 07/14/2024, Expires: 07/14/2025[facility] HealthcareComment on above:Expected: 07/14/2024, Expires: 07/14/2025Start: 07-14-2024 End: 62-04-1296MN Lumbar spine W contrast IVMR lumbar spine w contrast Imaging Routine Degenerative disc disease, lumbar Abnormal magnetic resonance imaging of lumbar spine Lumbar spondylolysis Expected: 07/14/2024, Expires: 07/14/2025[facility] HealthcareComment on above:Expected: 07/14/2024, Expires: 07/14/2025Start: 07-14-2024 End: 73-21-2575Bkeaoph encounter procedureNOMS [facility] ROUTEComment on above:Lumbar spondylolysisStart: 07-01-2024 End: 46-69-3439CPT W Auto Differential panel - BloodCBC auto differential Lab Routine 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 (CMS-HCC) Expected: 07/01/2024 (Approximate), Expires: 01/03/2025[facility] CenterCityGro [facility] SystemComment on above:Expected: 07/01/2024 (Approximate), Expires: 01/03/2025Start: 07-01-2024 End: 93-32-1127Whdnoqgiyfrqg metabolic 2000 panel - Serum or PlasmaComprehensive metabolic panel Lab Routine 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 (CMS-HCC) Expected: 07/01/2024 (Approximate), Expires: 01/03/2025[facility] CenterCityGro [facility] SystemComment on above:Expected: 07/01/2024 (Approximate), Expires: 01/03/2025Start: 07-01-2024 End: 08-37-4747AQ Abdomen and Pelvis W contrast IVCT abdomen and pelvis with contrast Imaging Routine 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 (CMS-HCC) Expected: 07/01/2024, Expires: 01/03/2025[facility] Comment on above:Expected: 07/01/2024, Expires: 01/03/2025Start: 07-01-2024 End: 45-81-9866MR Chest limited W contrast IVCT chest with contrast Imaging Routine 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 (CMS-HCC)Expected: 07/01/2024, Expires: 01/03/2025[employer] Work Phone: Comment on above:Expected: 07/01/2024, Expires: 01/03/2025Start: 93-11-7051RESFF-19 Vaccine ( season)COVID-19 Vaccine ( season)[facility]Start: 61-77-8437Tmvxsoluw vaccinationNOWashington University Medical CenterStart: 06-26-2024 End: 55-42-5831Mpdyxqe encounter procedureNOWAGONER COMM[facility] FMComment on above:Low back pain potentially associated with radiculopathy (Primary Dx)Start: 03-18-2024 End: 61-27-6863Pzjiftj encounter otmugygbf15/21/2024 11:00 AM EDT Office Visit [facility] [address] [place] [address] [place] [address] Veena Casiano MD [address] [place] [phone] [facility] SurgeonsStart: 02-27-2024 End: 96-08-9787Njeeroy encounter rhikvhdps59/01/2024 11:30 AM EDT Office Visit [facility] [address] [place] [address] Davis Pimentel MD [address] [place] [address] [facility] SurgeonsStart: 02-18-2024 End: 96-70-6148Ttjebqacj to same day surgery sgmllx2402/18/2024 9:00 AM EDT - 02/18/2024 10:30 AM EDT Surgery [facility] - Surgery [address] [place] [address] Davis Pimentel MD [address] [place] [address] CYSTOSCOPY BIPOLAR TRANSURETHRAL RESECTION PROSTATE [66773 (CPT )][facility] - SurgeryComment on above:CYSTOSCOPY BIPOLAR TRANSURETHRAL RESECTION PROSTATE [82678 (CPT )]Start: 54-28-6855Dybcyumgax hospital visit by uryluxgjn70/22/2024 9:00 AM EDT Hospital Encounter [facility] - Surgery [address] [place] [address] Davis Pimentel MD [address] [place] [address] [facility] - SurgeryStart: 02-18-2024 End: 79-24-3790Dqush electrosurg rescj prostate bleed completeCYSTOSCOPY BIPOLAR TRANSURETHRAL RESECTION PROSTATE Bladder outlet obstruction 02/18/2024 9:00 AM EDTFREMMISSOURI BAPTIST [facility]ITAL[facility] SURGERYStart: 02-05-2024 End: 09-49-6720Gtcqkts encounter csifmcszh22/09/2024 9:45 AM EDT Procedure visit [facility] - Pre Admit [address] [place] [address] MsfYowivzTrinity Health [facility] - Pre AdmitStart: 01-04-2024 End: 50-59-8919Kbxlsyb encounter detcketch95/08/2024 8:45 AM EST Office Visit Jesusita L [facility] - Medical Oncology [address] [place] [address] Cornelio Birmingham MD [address] [place] [address] Jesusita Mcintyre [facility] - Medical OncologyStart: 12-31-2023 End: 29-16-2671Hqebwed encounter tucquhfwr30/04/2024 3:30 PM EST Appointment [facility] - [place] Imaging [address] [place] [address] Cornelio Birmingham MD [address] [place] [address] [facility] - [place] ImagingStart: 12-24-2023 End: 00-52-2285Usptiyr encounter jgaxwvwuf98/26/2024 12:45 PM EST Office Visit [facility] [address] [place] [address] [place] [address] Davis Pimentel MD [address] [place] [address] [facility] SurgeonsStart: 12-04-2023 End: 34-65-0211usilzihbra31/06/2024 9:00 AM EST Support Visit [facility] [address] [place] [address] Veena Casiano MD [address] [place] [address] [facility] SurgeonsStart: 11-05-2023 End: 73-98-8571Khhkbfyfoud smpl/sm <2.5 cmLASER CYSTOSCOPY LITHOLAPAXY Bladder stones Benign prostatic hyperplasia with lower urinary tract symptoms, symptom details unspecified 11/05/2023 8:12 AM ESTFREMONT SURGERYStart: 11-05-2023 End: 13-22-5759Fehyflqru to same day surgery sqjgal5411/05/2023 8:00 AM EST - 11/05/2023 9:00 AM EST Surgery [facility] - Surgery [address] [place] [address] Davis Pimentel MD [address] [place] [address] CYSTOSCOPY LITHOLAPAXYProSelect Medical Specialty Hospital - [facility] Northca [facility] - SurgeryComment on above:CYSTOSCOPY LITHOLAPAXYStart: 11-05-2023 End: 20-40-1010Ecnmpzpobu yirefjvqgkkl49/08/2024 8:00 AM EST Anesthesia Event [facility] - Surgery [address] [place] [address] Daniel Wilde, DO [address] [facility] [place] [address] [facility]: 11-05-2023 End: 65-36-3484LFGJDWXWBU LITHOLAPAXYCYSTOSCOPY LITHOLAPAXY Bladder stones Benign prostatic hyperplasia with lower urinary tract symptoms, symptom details unspecified 11/05/2023 8:00 AM ESTLakeHealth TriPoint Medical Centerca Health SystemStart: 11-05-2023 Subsequent hospital visit by tbzkxqosv12/08/2024 8:00 AM EST Hospital Encounter [facility] [address] [facility] [place] [address] Davis Pimentel MD [address] [place] [address] [facility] HospitalStart: 81-26-0212UTY, Provider: Walt Jackson, Status: Pen, Time: 10:00 AMFUV, Provider: Walt Jackson, Status: Pen, [facility]: 10:00 [facility] 250 DO Work Phone: Start: 72-34-7908Bzdkwbhht vaccinationInfluenza VaccineProtestant Hospital SystemStart: 22-46-9511PME, Provider: Walt Jackson, Status: Pen, Time: 9:40 AMFUV, Provider: Walt Jackson, Status: Pen, Time: 9:40 AMMer[facility] 250 DO Work Phone: Start: 89-95-0799JuwpniefiTrinity Health System Start: 79-23-8709Uxnkhlet admissionZanesville City Hospitaltart: 83-09-3649Jtxfzjsj to cardiologistZanesville City Hospitaltart: 77-02-6253TgiyeqlzyZanesville City Hospitaltart: 05-12-2022 End: 09-23-3774PniiotorgZanesville City Hospitaltart: 42-72-7475XTS, Provider: Walt Jackson, Status: Pen, Time: 9:50 AMFUV, Provider: Walt Jackson, Status: Pen, Time: 9:50 AMMP-[facility] 250 DO Work Phone: Start: 66-70-7825BXO High Risk: (Elderly (60+) or Population) (1 - Risk 60-74 years 1-dose series)RSV High Risk: (Elderly (60+) or Population) (1 - Risk 60-74 years 1-dose series)[facility]: 54-86-5683Eyffis Vaccines (1 of 2)Zoster Vaccines (1 of 2)[facility]: 33-08-6206WKnR/Tdap/Td Vaccines (1 - Tdap)DTaP/Tdap/Td Vaccines (1 - Tdap)[facility] Start: 43-01-7254Vizhvfudbrmuvj of varicella zoster vaccineZoster (Shingles) Vaccine (1 of 2)[facility]: 66-88-6613RLsW,Tdap and Td Vaccines (1 - Tdap)DTaP,Tdap and Td Vaccines (1 - Tdap)[facility] Start: 45-98-2948Seybocohsooi vaccinationPneumococcal Vaccine (1 of 2 - PCV) [facility]: 53-79-7524Ehqpn screening for protein Diabetes: Urine Protein ScreeningFulton Medical Center- FultonStart: 24-60-1431Edmdd BMI Follow Up PlanAdult BMI Follow Up PlanKindred Hospital - Greensborotart: 1978 Diabetes mellitus screeningDiabetes ScreeningBethesda North Hospital Start: 97-62-4581Hwvydwwn foot examinationDiabetic Foot ExamKindred Hospital - Greensborotart: 33-04-1224Ynqvmpehm C screeningHepatitis C ScreeningBethesda North HospitalStgold hill: 29-59-5953Sdvyscitzy ScreeningDepression Screening [facility]otart: 20-62-8260Uhmbltky screeningDiabetes: Retinopathy ScreeningFulton Medical Center- FultonStart: 10-83-6423TWD Vaccines (1 of 1 - Standard series) MMR Vaccines (1 of 1 - Standard series)[facility] HospitalStart: 33-76-3875Wqawxyli screeningDiabetic Ophthalmology ExamCherrington Hospital Start: 15-08-6363KHY screeningHIV ScreeningBethesda North Hospital Start: 45-09-4153Ztoob panelLipid PanelUniversity Hospitals Parma Medical Center: 82-90-3558Gkxlacquf for malignant neoplasm of colonNOMS HealthcareStart: 90-18-5437Seiwm screening for proteinUrine MicroalbuminCherrington Hospital Start: 29-54-2006Fxeytb Adult PhysicalYearly Adult PhysicalUnPremier Health [facility] End: 58-98-5766Vivvkiuf identified in Urine by CultureUrine Culture Microbiology Routine Cloudy urine Painful urination 1 Occurrences starting 03/10/2024until 03/10/2025[employer] Work Phone: Comment on above:1 Occurrences starting 03/10/2024 until 03/10/2025 End: 18-01-9784Uqiefaxvms includes GFR, serumCreatinine includes GFR, serum Lab Routine 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 (CMS-HCC) 1 Occurrences starting 01/04/2024 until 01/03/2025Pro[facility] Yulex SystemComment on above:1 Occurrences starting 01/04/2024 until 01/03/2025 Microalbumin/Creatinine panel in random UrineMicroalbumin / creatinine urine ratio Lab Routine Diabetes mellitus type 2, noninsulin dependent (CMS/HCC) Ordered: 09/30/2024[facility] HealthcareComment on above:Ordered: 09/30/2024atient EducationAvita Health System Ctr Work Phone: Patient referralAvita Health System Ctr Work Phone: End: 52-32-1453Btqzhvyda specific antigen, diagnosticProstatic specific antigen, diagnostic Lab Routine Benign prostatic hyperplasia with lower urinary tract symptoms, symptom details unspecified 1 Occurrences starting 07/07/2025 until 07/07/2026ProJack [facility] Health SystemComment on above:1 Occurrences starting 07/07/2025 until 07/07/2026Void TrialVoid Trial Procedure Routine Nephrolithiasis Ordered: [facility] Work Phone: Comment on above:Ordered: 12/04/2023 Payers DatePayer CategoryPayerPolicy [id number] [facility] Managed Care - [id number]-[id number] Cross Blue [id number]842.153053.89433-16-3375VpujUSMD [facility] Care - OtherBS [place] 1.2.840.690972.1.13.424.2.7.9.638774.5[id number] Health InsuranceGENERIC COMMERCIAL 1.2.840.917281.1.13.647.2.7.9.608199.522[id number] [id number]'s Comp Other [facility] SystemWORKS 1.20.123244.1.13.424.2.7.9.711303.[id number] 2.0.1.719036.3.579.[id number] 2.0.1.874590.3.579.2.[id number] 2.16840.1.600166.3.579.[id number] 2.160.1.768300.3.579.[id number] 2.16840.1.797876.3.579.2.0[id number] 2.160.1.685980.3.57[id number] 2.16840.1.752375.3.579.[id number] 2.160.1.200432.3.579.2.5[id number] 2.16840.1.385183.3.579.2.54619-85-8811Aalnavs11594210 2.16840.1.435233.3.579.2.98115-77-5361Wgzcwgd96674655 2.16.840.1.082623.3.579.2.9[id number] 2.16.840.1.641381.3.579.[id number] 2.16.840.1.810237.3.579.2.3[id number] 2.16.840.1.627074.3.579.2.484328-14-3457Yknkemk4986615 2.16.840.1.122124.3.579.2.104319-19-5377Lwvhtfx0683670 2.16.840.1.490652.3.579.2.622552-50-6326Gmvllgz2240122 2.16.840.1.235631.3.579.2.819149-84-4110Ipvujhg8750272 2.16.840.1.718992.3.579.2.349420-22-7015Yguxbjq5595070 2.16.840.1.322612.3.579.2.182167-56-7387Ykpybci8631354 2.16.840.1.847639.3.579.2.457316-65-5609Dreuujk4781104 2.16.840.1.109081.3.579.2.831129-01-6698Afwtuyi1118110 2.16.840.1.777071.3.579.2.540183-45-1171Rawjnyt6490900 2.16.840.1.866460.3.579.2.158568-73-5991Fywkydn5523087 2.16.840.1.633109.3.579.2.258387-77-8755Yuggtkj0761219 2.16.840.1.282078.3.579.2.232374-19-3638Hbzhung0884134 2.16.840.1.014416.3.579.2.195286-42-7374Bwdgfmk9443444 2.16.840.1.706641.3.579.2.448266-70-9275Tbszkqf6490849 2.16.840.1.205814.3.579.2.633450-94-8378Icdlret4306452 2.16.840.1.368831.3.579.2.652415-11-3354Umezeny6854446 2.16.840.1.025966.3.579.2.598651-76-0130Nxsnxyv4939945 2.16.840.1.842468.3.579.2.514633-93-9977Sgnfozr4980107 2.16.840.1.190096.3.579.2.343979-79-4679Gcpcqkq8106098 2.16.840.1.386696.3.579.2.059783-66-6571Thkutji8360096 2.16.840.1.906685.3.579.2.458816-94-1775Npqripm7483501 2.16.840.1.861431.3.579.2.533358-32-4437Jyyywie9025407 2.16.840.1.190797.3.579.2.447492-12-5988Fklkaxc3403465 2.16.840.1.672268.3.579.2.774987-76-2248Kyvmwyi5985386 2.16.840.1.657876.3.579.2.363744-14-3436Nkypvxv8143522 2.16.840.1.028767.3.579.2.832981-12-5429Qgkogkf3049128 2.16.840.1.340265.3.579.2.626018-41-2878Qarkgpi9390908 2.16.840.1.627071.3.579.2.654998-11-6328Lhowasq1261920 2.16.840.1.102924.3.579.2.364447-45-0601Ifsjtnq7557009 2.16.840.1.043351.3.579.2.617722-12-6162Bicxpnh967616268 2.16.840.1.550699.3.579.2.406919-10-0875Lveaeck68072333 2.16.840.1.249967.3.579.2.124099-54-2577Dmqlbji037319175 2.16.840.1.523339.3.579.2.827482-96-7647Cnfcznj666116783 2.16.840.1.013248.3.579.2.512191-65-0897Fuzfqna888851524 2..840.1.426481.3.579.2.936726-14-2030Esnqvkb321369518 2.16.840.1.375047.3.579.2.593380-72-5303Ekljmeg678812435 2.16.840.1.473930.3.579.2.935968-15-2728Dhlemsu589774089 2.16.840.1.186431.3.579.2.666453-50-8279Qreaspw514145518 2.16.840.1.615464.3.579.2.409668-50-8319Gauabds834941135 2.16.840.1.936664.3.579.2.631619-53-5971Tajymoy13007266 2.16.840.1.974783.3.579.2.195899-03-6120Kcxusaw37291046 2..840.1.724415.3.579.2.427496-16-9384Zwfdfmn36167329 2..840.1.631877.3.579.2.516963-39-3926Yqybyir77481773 2.840.1.395819.3.579.2.806735-79-1265PybbakqH5N254714748 acee2c96-15a3-46a9-a022-2f2e38[id number]-[id number] 6vzd1md0-yxa5-4i6x-1q5g-kd1rst687543TfmswipMHAQ/HFA/FAP Bjqasf231716527 5zqo311d-8408-90c0-0790-6g04646g0sa3Dknqkjhzebn73525766Wxloxdf08527421 2.16.840.1.102654.3.579.2.921Szskndi50954802 [id number] Social History DateTypeDetailFacilityStart: 04-14-2024 End: 82-95-9357Ib alcohol useNo alcohol useNOOH HealthcareComment on above:QUIT 15 YEARS AGO 2006- SMOKED ABOUT 2 PPD;Start: 11-28-2021 End: 85-66-2761Sgjwkck smoking status NHISEx-smoker (finding)[facility] Hospital[facility]art: 53-52-5397Xqj [facility]: 06-19-2024 End: 59-24-2741Wow [facility]igned At [facility] HealthcareStart: 10-29-1976 End: 30-86-0665Aenmvwv of tobacco useCurrent smokerNOOH HealthcareStart: 10-29-1976 End: 15-16-5104Mvuztfi of tobacco useCigarette SmokerNOMS HealthcareHistory of tobacco usePassive smokerNOMS HealthcareStart: 03-18-2024 End: 20-68-2441Clyegsc use and exposureSmokeless tobacco non-userNOMS Healthcare Start: 05-26-2024 End: 29-84-2264Hpwfwrzos beverage intakeLifetime non-drinker (finding)[facility] HealthcareStart: 66-07-6168Mqb often do you need to have someone help you when you read instructions, pamphlets, or other written material from your doctor or pharmacy [SILS]NeverNOMS HealthcareDo you belong to any clubs or organizations such as buddhist groups, unions, fraTiempo Development or athletic groups, or school groups?No NOMS HealthcareAre you now , , , , never or living with a partner?MarriedNOMS HealthcareHow often to you have a drink containing alcohol?NeverNOMS HealthcareDo you feel stress - tense, restless, nervous, or anxious, or unable to sleep at night because yourmind is troubled all the time - these days [OSQ]Very muchNOMS Healthcare(I/We) worried whether (my/our) food would run out before (I/we) got money to buy more.Never trueNOMS HealthcareStart: 50-71-2665Ilw assigned at birthNot on fileNOOH HealthcareStart: 06-03-2015 End: 83-91-3010KgfVfjz (finding)[facility]tart: 11-17-2024 End: 22-49-6357Uhfkkbfp to SARS-CoV-2 (event)Not [facility]Start: 10-24-2023 End: 86-94-7178Uveirsm intakeCurrent non-drinker of alcohol (finding)[employer] Medical Equipment Procedure CodeEquipment CodeEquipment Original TextEquipment IdentifierDates Drug-eluting coronary artery stent, mow-qchkuaktetodt-igyrqde-coated ()[id number] FDAStart: 26-69-5830Djilnbt artery closure plug/patch, synthetic polymer()[id number] FDAStart: 04-27-2021 Lens 16.0 Paco Sn60wf - [id number] - [id number]: 91-04-2187Upuq 16.0 Paco Sn60wf - [id number] - [id number]: 02-28-2018 Goals DatePatient GoalDesired Activity/StatePersonal health goalComment on above: Evaluation of progress towards goal: Patient will discharge home with , self care. - Martin Agosto RN 11/30/22 11:39 AM Functional Status AposExysgzjjyxDilopcGtphafax07-44-9579Gzc difficult have these problems made it for you to do your work, take care of things at home, or get along with other people?Not difficult at all 06/26/2024 10:14 AM EDT Elizabeth Batista MA Not difficult at allFulton Medical Center- FultonAygpyuqigz84-04-3334Riocruk Health Questionnaire 2 item (PHQ-2) [Reported][facility]- FultonTiaminxylj00-55-0300Cclne score [AUDIT-C]0 06/19/2024 9:22 AM EDT Mychart, GenericFulton Medical Center- FultonNewuoomwdw37-93-9104Ekk often do you have a drink containing alcohol?Never 06/19/2024 9:22 AM EDT Mychart, Generic NeverFulton Medical Center- FultonUtzbyxsktr32-21-4797Maaiypqhde statusPatient does not drink 06/19/2024 9:22 AM EDT Mychart, Generic Patient does not drinkFulton Medical Center- FultonCzefacaqmu79-53-4594Nde often do you have 6 or more drinks on 1 occasion?Never 06/19/2024 9:22 AM EDT Mychart, Generic [facility] JosephUwyotuqmsr28-20-3527Rxmrssj Health Questionnaire 2 item (PHQ- 2) [Reported][facility]- FultonHcyhtqlwgl81-61-4348Bukdlyapbx statusPatient at Baseline [facility] Work Phone: Mental Status MhpwYomvylomlnAqwtadBhtkxtuy48-09-4530Fhegaqzjo functionCognitive Status [facility] Work Phone: Clinical Notes 12-27-2014 to 07-07-2025 Note Date & YcjlIdnzIjbclshr17-02-1340 History of Present illness Narrative* Veena Casiano MD - 07/07/2025 3:00 PM EDT Images from the original note were not included. [address] [place] [address] A [facility] [address] Patient: Zaid Mello Date of : 1960 Encounter Date: 07/07/2025 History of Present Illness: The patient is a 64 y.o. male, an established patient, and is here for He has a history of lower urinary tract symptoms. Had been on tamsulosin 0.4 mg. He was diagnosed with bladder stones and underwent a cystolitholapaxy [address] Pimentel. Patient reports that since that time he has been voiding much better. No more nocturia. PVR was 126 cc. Had been started on finasteride but took thisonly for few months and stopped because he was having some groin discomfort which resolved after stopping the medication. He had a recurrent bladder stone and we doubled his tamsulosin to 0.8 mg in 2023. He reports he continues to void well with this. He has had no symptomatic UTIs over the past year. He has known kidney stones on imaging in conjunction with the bladder stone. Follows up with a KUB which we reviewed. The kidney stones were still seen. He remains asymptomatic from this. The bladderstone has grown. On CT scan 2023 measured 13 mm in diameter. Currently 18 mm in diameter. Denies any hematuria. His PVR is 117 cc. Summary of old records: Urinalysis today: Recent Labs 07/07/25 1501 EXTPOCURBS Negative EXTPOCUKET Negative EXTPOCUPRO Trace EXTPOCUNIT Positive EXTPOCUBLD Trace EXTPOCUPH 7.0 Last BUN and creatinine: Lab Results Component Value Date BUN 11 12/02/2024 Lab Results Component Value Date CREATININE 1.10 02/13/2025 Last PSA: Lab Results Component Value Date PSA 1.46 09/05/2023 PSA 2.06 06/01/2022 PSA 1.36 07/30/2020 Lab Results Component Value Date PROSTATICSP 4.47 (H) 07/20/2023 Additional Lab/Culture results: Imaging Reviewed during this Office Visit: (Results were independently reviewed by physician and radiology report verified) Past Medical, Family, and Social History Update: The following portions of the patient's history were reviewed and updated as appropriate: allergies, current medications, past family history, past medical history, past social history, past surgicalhistory and problem list. Past Medical History: Diagnosis Date Anesthesia emergence dysphoria BPH (benign prostatic hypertrophy) CAD (coronary artery disease) Cardiovascular disease Cataract Chest pain COPD (chronic obstructive pulmonary disease) ([facility]) COPD, moderate ([facility]) 04/09/2017 Diabetes mellitus ([facility] Emphysema of lung ([facility]) Hyperlipemia Hypertension Injury of back Lung cancer ([facility]) right lower lobe thoracotomy 11/2022 Myocardial infarction ([facility]) Right lower lobe pulmonary nodule Seizures ([facility]) had from ages [age], none since age 27 Shortness of breath Visual impairment Past Surgical History: Procedure Laterality Date BRONCHOSCOPY WITH FLUORO N/A 05/24/2017 Performed by Maritza Jang DO at [facility] 03/2022 stent placed CORONARY ARTERY BYPASS GRAFT 01/16/2006 Triple DAVINCI THORACOTOMY ( RIGHT LOWER LOBE WEDGE RESECTION) , RIGHT LOBECTOMY,MEDIASTINAL LYMPH NODE DISECTION LYSIS OF PLEURAL ADHESIONS N/A 11/29/2022 Performed by Walt Barragan MD at [facility] LASER CYSTOSCOPY LITHOLAPAXY N/A 11/05/2023 Performed by Davis Pimentel MD at [facility] LIPOMA RESECTION PHACO KELMAN I IMPLANT INTRAOCULAR LENS Right 02/28/2018 Performed by Lashay Bui MD at [facility] PHACO KELMAN I IMPLANT INTRAOCULAR LENS Left 12/27/2017 Performed by Lashay Bui MD at [facility] SKIN BIOPSY excision of lypoma Family History [...] total) by mouth daily. 30 tablet 6 hydroCHLOROthiazide (HYDRODIURIL) 12.5 mg tablet Take 1 tablet (12.5 mg total) by mouth daily. isosorbide mononitrate (IMDUR) 60 mg 24 hr tablet Take 1 tablet (60 mg total) by mouth daily. metFORMIN XR (GLUCOPHAGE XR) 500 mg 24 hr tablet Take 1 tablet (500 mg total) by mouth daily with breakfast. metoprolol tartrate (LOPRESSOR) 25 mg tablet Take 1 tablet (25 mg total) by mouth in the morning and 1 tablet (25 mg total) before bedtime. 180 tablet 0 pantoprazole (PROTONIX) 40 mg EC tablet Take 1 tablet (40 mg total) by mouth every morning before breakfast. tamsulosin (FLOMAX) 0.4 mg capsule Take 2 capsules (0.8 mg total) by mouth nightly. 180 capsule 3 tiZANidine (ZANAFLEX) 4 mg tablet Take 0.5 tablets (2 mg total) by mouth in the morning and 0.5 tablets (2 mg total) before bedtime. umeclidinium-vilanteroL (ANORO ELLIPTA) 62.5-25 mcg/actuation blister with device Inhale 1 puff in the morning. (Patient not taking: Reported on 07/07/2025) No current facility-administered medications for this visit. (All medications reviewed and updated by provider since last office visit or hospitalization) Allergies: No known drug allergies Tobacco History: Social History Tobacco Use Smoking Status Former Current packs/day: 0.00 Types: Cigarettes Quit date: 05/24/2005 Years since quittin.1 Smokeless Tobacco Never (If patient a smoker, smoking cessation counseling offered) Social History: Social History Substance and Sexual Activity Alcohol Use No Review of Systems: General: Negative for chills and fever. Cardiovascular: Positive for shortness of breath Gastrointestinal: Negative for constipation, diarrhea, nausea, and vomitting. Physical Exam: BP 122/79 Pulse 87 Ht 175.3 cm (5' 9 ) Wt 107 kg (236 lb) BMI 34.85 kg/m Assessment and Plan: Zaid was seen today for urinary tract infection. Diagnoses and all orders for this visit: Recurrent UTI - POCT Urinalysis Auto, W/O Microscopy Kidney stones - POCT Urinalysis Auto, W/O Microscopy - X-ray abdomen ap 1 view; Future Bladder stones - X-ray abdomen ap 1 view; Future Benign prostatic hyperplasia with lower urinary tract symptoms, symptom details unspecified - Prostatic specific antigen, diagnostic; Future - Prostatic specific antigen, diagnostic; Future - Measure post void residual Problem List Genitourinary Benign prostatic hyperplasia with lower urinary tract symptoms Overview 11/28/23====s/p cystolitholapaxy 11/05/23. 03/18/24: doing well using tamsulosin 0.8 mg. Getting recurrent UTIs with E coli and subsequently Enterococcus. Plan to have him finish his course of 7 days. If recurrent symptoms soon extend course of antibiotic. 09/23/2024: Currently symptom free. Plan to maintain tamsulosin 0.8 mg. Reportedly with a bladder and kidney stones. Plan to check KUB 1 year 07/07/2025: Enlarging bladder stone. Stable kidney stones. He remains asymptomatic. No further UTIs. Explained that enlarging bladder stone does suggest he probably is not emptying his bladder adequately routinely but is today in the office. Given his lack of symptoms we are planning to follow for n ow however if he does become symptomatic would suggest a dressing his prostate further at that timewith an outlet reduction procedure. He is going to continue tamsulosin 0.8 mg. Check PSA. Return 1 year with PSA and KUB Relevant Orders Prostatic specific antigen, diagnostic Prostatic specific antigen, diagnostic Measure post void residual (Completed) Kidney stones Overview History of kidney stone 2022 KUB with stable stones without symptoms. Plan to follow with recheck KUB 1 year Relevant Orders POCT Urinalysis Auto, W/O Microscopy (Completed) X-ray abdomen ap 1 view Bladder stones Relevant Orders X-ray abdomen ap 1 view Recurrent UTI - Primary Relevant Orders POCT Urinalysis Auto, W/O Microscopy (Completed) Follow-up: 1 year with kub and psa Check psa today Veena Casiano MD This note was created with the assistance of a speech recognition program. While intending to generate a timely document that accurately reflects the content of the visit, no guarantee can be provided that every grammatical or spelling mistake has been or will be identified or corrected. Thank you for your understanding. documented in this encounterLakeHealth TriPoint Medical CenterXuehuile Fuhjvw71-31-2303 Miscellaneous Notes* Telephone Encounter - Ida Atkins - 06/26/2025 10:55 AM EDT Pt called and stated he went to [employer] today for an employment drug screen and they advised himthat his urine test tested positive trace blood, and positive nitrate and large leukocytes. I r/s his 09-29-2025 appt. To 07-07-2025 and pt is ok with a c2c appt. * Telephone Encounter - Esperanza Maldonado LPN - 06/26/2025 10:55 AM EDT Pt. States that he is asymptomatic. This nurse did place an order for a culture based on the urine dip results read by the Pt. Pt. Stated he would go later today to do the culture at the hospital. * Addendum Note - Esperanza Maldonado LPN - 06/26/2025 10:55 AM EDTAddended by: ESPERANZA MALDONADO on: 06/26/2025 11:03 AM Modules accepted: Orders * Addendum Note - Esperanza Maldonado LPN - 06/26/2025 10:55 AM EDTAddended by: ESPERANZA MALDONADO on: 06/26/2025 11:09 AM Modules accepted: Orders documented in this encounterC[facility]08-[facility] Note* Addendum Note - Esperanza Maldonado LPN - 06/26/2025 10:55 AM EDTAddended by: ESPERANZA MALDONADO on: 06/26/2025 11:03 AM Modules accepted: Orders [facility]08-29-[facility]* Addendum Note - Esperanza Maldonado LPN - 06/26/2025 10:55 AM EDTAddended by: ESPERANZA MALDONADO on: 06/26/2025 11:09 AM Modules accepted: Orders [facility]08-29-2025 Telephone encounter Note* Telephone Encounter - Ida Atkins - 06/26/2025 10:55 AM EDT Pt called and stated he went to [employer] today for an employment drug screen and they advised himthat his urine test tested positive trace blood, and positive nitrate and large leukocytes. I r/s his 09-29-2025 appt. To 07-07-2025 and pt is ok with a c2c appt. [facility] Telephone encounter Note* Telephone Encounter - Esperanza Maldonado LPN - 06/26/2025 10:55 AM EDT Pt. States that he is asymptomatic. This nurse did place an order for a culture based on the urine dip results read by the Pt. Pt. Stated he would go later today to do the culture at the hospital. [facility]04-25-2025 History of Present illness Narrative* Hua Jung RN - 02/20/2025 10:08 AM EDT Pt here for f/u lung cancer/ ct chest. Orders received for: Ct chest 07/2025 F/u in late 07/2025. CT chest ordered. F/u scheduled. Pt v.u. documented in this encounterCherrington Hospital04-25-2025 History of Present illness Narrative* Cornelio Birmingham MD - 02/20/2025 10:00 AM EDT Images from the original note were not included. [facility] 02/20/25 Zaid Mello is a 64 y.o. year old male seen today in the oncology clinic. Chief Complaint Patient presents with Follow-up History of Present Illness: Mr. Mello is a 64 y.o. male with history of COPD who was found to have 2.6 cm right lower lobe 2.6 centimeter nodular opacity since 2017. Bronchoscopy with bronchoalveolar lavage low right lower [...] mediastinal mass or adenopathy is evident. A righthepatic cysts, segment 8 appears stable measuring up [...] is doing well over the past six months. Complains about chronic shortness of breath at baseline. No hemoptysis.No significant cough or shortness of breath. No headaches or vision change. Weight has been stable. He stopped smoking several years ago. Past Medical History: Diagnosis Date Anesthesia emergence dysphoria BPH (benign prostatic hypertrophy) CAD (coronary artery disease) Cardiovascular disease Cataract Chest pain COPD (chronic obstructive pulmonary disease) ([facility]) COPD, moderate ([facility]) 04/09/2017 Diabetes mellitus ([facility] Emphysema of lung ([facility]) Hyperlipemia Hypertension Injury of back Lung cancer ([facility]) right lower lobe thoracotomy 11/2022 Myocardial infarction ([facility]) Right lower lobe pulmonary nodule Seizures ([facility]) had from ages [age], none since age 27 Shortness of breath Visual impairment Past Surgical History: Procedure Laterality Date BRONCHOSCOPY WITH FLUORO N/A 05/24/2017 Performed by Maritza Jang DO at [facility] 03/2022 stent placed CORONARY ARTERY BYPASS GRAFT 01/16/2006 Triple DAVINCI THORACOTOMY ( RIGHT LOWER LOBE WEDGE RESECTION) , RIGHT LOBECTOMY,MEDIASTINAL LYMPH NODE DISECTION LYSIS OF PLEURAL ADHESIONS N/A 11/29/2022 Performed by Walt Barragan MD at [facility] LASER CYSTOSCOPY LITHOLAPAXY N/A 11/05/2023 Performed by Davis Pimentel MD at [facility] LIPOMA RESECTION PHACO KELMAN I IMPLANT INTRAOCULAR LENS Right 02/28/2018 Performed by Lashay Bui MD at [facility] PHACO KELMAN I IMPLANT INTRAOCULAR LENS Left 12/27/2017 Performed by Lashay Bui MD at [facility] SKIN BIOPSY excision of lypoma Family History Problem Relation Age of Onset Diabetes Father Heart disease Father Cancer Sister Stroke Maternal Grandmother No Known Problems Mother Social History Socioeconomic History Marital status: Tobacco Use Smoking status: Former Current packs/day: 0.00 Types: Cigarettes Quit date: 05/24/2005 Years since quittin.7 Smokeless tobacco: Never Vaping Use Vaping status: Never Used Substance and Sexual Activity Alcohol use: No Drug use: No Sexual activity: Yes Partners: Female Other Topics Concern Caffeine Use Yes Comment: 2 cups of coffee a day Social Drivers of Health Financial Resource Strain: Low Risk (06/19/2024) Received from [facility] Overall Financial Resource Strain (CARDIA) Difficulty of Paying Living Expenses: Not hard at all Food Insecurity: No Food Insecurity (09/23/2024) Hunger Screening Food Insecurity - Worry: Never True Food Insecurity - Inability: Never True Transportation Needs: No Transportation Needs (06/19/2024) Received from [facility] PRAPARE - Transportation Lack of Transportation (Medical): No Lack of Transportation (Non-Medical): No Physical Activity: Insufficiently Active (06/19/2024) Received from [facility] Exercise Vital Sign Days of Exercise per Week: 3 days Minutes of Exercise per Session: 20 min Stress: Stress Concern Present (06/19/2024) Received from [facility] [employer] [employer] [employer] Occupational [employer] - Occupational Stress Questionnaire Feeling of Stress : Very much Social Connections: Unknown (06/19/2024) Received from [facility] Social Connection and Isolation Panel [NHANES] Frequency of Communication with Friends and Family: Once a week Attends [employer] Services: Never Active Member of Clubs or Organizations: No Attends Club or Organization Meetings: Never Marital Status: Housing Instability: Low Risk (06/19/2024) Received from [facility] Housing Stability Vital Sign Unable to Pay for Housing in the Last Year: No Number of Times Moved in the Last Year: 0 Homeless in the Last Year: No Allergies Allergen Reactions No Known Drug Allergies Medication List Accurate as of February 20, 2025 11:02 AM. If you have any questions, ask your nurse or doctor. Medications Continued This Visit ANORO ELLIPTA 62.5-25 mcg/actuation blister with device Refills: 0 Dose: 1 puff Generic drug: umeclidinium-vilanteroL aspirin 81 mg Refills: 0 Dose: 81 mg atorvastatin 40 mg tablet Quantity: 30 tablet Refills: 6 Dose: 40 mg Signed by: KARMEN Toussaint 40 mg, oral, Daily Commonly known as: LIPITOR hydroCHLOROthiazide 12.5 mg tablet Refills: 0 Dose: 12.5 mg Commonly known as: HYDRODIURIL isosorbide mononitrate 60 mg 24 hr tablet Refills: 0 Dose: 60 mg Commonly known as: IMDUR metFORMIN XR 500 mg 24 hr tablet Refills: 0 Dose: 500 mg Commonly known as: GLUCOPHAGE XR metoprolol tartrate 25 mg tablet Quantity: 180 tablet Refills: 0 Doctor's comments: Pt needs appt for refills Dose: 25 mg Signed by: Kin Rodriguez PA-C 25 mg, oral, 2 times daily Commonly known as: LOPRESSOR pantoprazole 40 mg EC tablet Refills: 0 Dose: 40 mg Commonly known as: PROTONIX tamsulosin 0.4 mg capsule Quantity: 180 capsule Refills: 3 Dose: 0.8 mg Signed by: Dr. Casiano 0.8 mg, oral, Nightly Commonly known as: FLOMAX tiZANidine 4 mg tablet Refills: 0 Dose: 2 mg Commonly known as: ZANAFLEX Review of Symptoms: Review of Systems HENT: Sinus pressure and drainage. Respiratory: Positive for cough. All other systems reviewed and are negative. ECO- Symptomatic; fully ambulatory Physical Exam: General: Well appearing, in no acute distress. Vitals: BP 139/69 Pulse 63 Temp 36.7 C (98 F) (Oral) Resp 18 Ht 175.3 cm (5' 9.02 ) Wt 107.1 kg (236 lb 3.2 oz) SpO2 98% BMI 34.86 kg/m Body mass index is 34.86 kg/m . Eyes: No icterus, no conjuctival erythema ENT: Pharyngeal mucosa was moist without exudate and inflammation or ulcerations. Tongue was midline and appeared normal.Gums were unremarkable. Lymph nodes: No palpable adenopathy Neck: Supple. There were no masses, tenderness. Trachea was midline. Respiratory: Respirations were non-labored. Lungs were clear to auscultation. There was no dullnessto percussion. Cardiac: Regular rate and rhythm, S1 [...] of chronic microangiopathy. No territorial loss of heller- white differentiation. Mild cerebral volume loss with appropriate size and morphology of the ventricular system. No extra-axial fluid collections or shift of midline structures. Patent basal cisterns. No depressed or displaced calvarial fracture. Nonaggressive mucosal thickening maxillary and sphenoid sinusesas well as frontal sinuses and ethmoid air cells. IMPRESSION: 1. No acute intracranial abnormality.2. Senescent changes including cerebral volume loss and sequelae of chronic microangiopathy. 3. If there is sufficient clinical concern for acute ischemia or an occult abnormality, further evaluationwith brain MRI is recommended. All CT scans [...] fracture or dislocation bilateral femoral heads appear well- seated respective acetabula. Mild degenerative changes of the bilateral hips. Pubic symphysis is intact. Sacroiliac joints are symmetric. Softtissues appear unremarkable. IMPRESSION: No acute osseous abnormality [...] sagittal reconstructions were performed. All CT scans atthis facility use dose modulation, iterative reconstruction, and/or weight based dosing when appropr iate to reduce radiation dose to as low [...] dosing when appropriate to reduce radiation dose toas low as reasonably achievable. Findings: There is no acute vertebral deformity in the thoracic region. No displaced rib fracture is evident. Patient is status post sternotomy. A paraspinal mass in the right lower lobe measures 4.8 x 3.3 x 2.3 cm. This has cavitary component centrally and involvesthe adjacent pleura. There is centrilobular emphysematous change with no focal abnormality otherwise present in the lungs No mediastinal mass or adenopathy is evident. A right hepatic cysts, segment 8 appears stable measuring up to 6.8 cm. IMPRESSION: No posttraumatic abnormality within the thorax.Right lower lobe paraspinal mass suggestive of malignancy. 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 Repeat CT scan 01/2025 reviewed today, continue to have granulomatous changes emphysema no signs of recurrence. Plan to obtain another CT scan of the chest in [address] scan every 6 months for the 1st 3 years. Follow-up with me after the imaging test. Cornelio Birmingham MD Please note that portions of this note were generated using voice recognition M*Modal dictation software. Although every effort was made to ensure the accuracy of this automated commercial technician, some errors in commercial technician may have occurred. CC: Patient Care Team: Ksenia Arzola APRN-JEET as PCP - General (Nurse Practitioner) Romi Novak MD as Referring Physician (Infectious Disease) Cornelio Birmingham MD as Consulting Physician (Oncology) Domingo Collado DO as Consulting Physician (Radiation Oncology) Davis Pimentel MD as Consulting Physician (Urology) Walt Jackson DO as Referring Physician (Cardiology) PCP:Ksenia Arzola Referring MD: Shaikh Elliott MD documented in this encounterCher[facility]04-25-[facility]25 Instructions* Patient Instructions* Cornelio Birmingham MD - 02/20/2025 10:[address] chest 07/2025 F/u in late 07/2025. documented in this encounterCherrington Hospital02-04-2025 History of Present illness Narrative* Ksenia Arzola NP - 12/02/2024 4:50 PM ESTAssociated Problem(s): Acute right-sided thoracic back pain 2 days ago developed sharp stabbing right sided back pain. Pain is intermittent. Reports pain lasts 30-40 seconds of severe pain then dulls to a tolerable pain. At its peak rates pain 10/10 At rest 4.5 on scale of 0-10. Has history of malignant neoplasm of right bronchus, had lobectomy done [address] with contrast done in 07/2024 with no acute findings. Reports baseline dyspnea with exertion but states has been worsening recently. Does have hx of kidney stones however states this pain is very different and is a bit high on the back to be CVA tenderness. Will treat as musculoskeletal pain today, CXR to rule out respiratory causes. Trial Zanaflex at this time. If symptoms do not improve will order additional imaging. Advised pt to update pulmonology on worsening shortness of breath with exertion as well. * Ksenia Arzola NP - 12/02/2024 2:30 PM EST Images from the original note were not included. Subjective Patient ID: Zaid Mello is a 64 y.o. male who presents for Back Pain (X2 days, short of breath from the pain mostly on left side, sharp stabbing 10/10 pain). HPI Pulmonology- Dr. Joshua Heme/Onc-Dr. Birmingham Neurology- Dr. Mckeon 2 days ago developed sharp stabbing right sided back pain. Pain is intermittent. Reports pain lasts 30-40 seconds of severe pain then dulls to a tolerable pain. At its peak rates pain 10/10 At rest 4.5 on scale of 0-10. Denies injury/trauma Burning sensation Itching Numbness/tingling Loss of bowel or bladder sensation Has history of malignant neoplasm of right bronchus, had lobectomy done [address] with contrast done in 07/2024 with no acute findings. Reports baseline dyspnea with exertion but states has been worsening recently. Does have hx of kidney stones however states this pain is very different and is a bit high on the back to be CVA tenderness. Will treat as musculoskeletal pain today, CXR to rule out respiratory causes. Trial Zanaflex at this time. If symptoms do not improve will order additional imaging. Review of Systems Constitutional: Negative for activity change, appetite change, chills, diaphoresis, fatigue, fever and unexpected weight change. HENT: Negative for congestion, ear pain, rhinorrhea, sinus pressure, sinus pain, sneezing, sore throat, trouble swallowing and voice change. Eyes: Negative for visual disturbance. Respiratory: Positive for shortness of breath. Negative for cough, chest tightness and wheezing. Cardiovascular: Negative for chest pain, palpitations and leg swelling. Gastrointestinal: Negative for abdominal distention, abdominal pain, blood in stool, constipation, diarrhea and vomiting. Genitourinary: Negative for decreased urine volume, dysuria, flank pain, frequency, hematuria and urgency. Musculoskeletal: Positive for back pain. Negative for arthralgias, gait problem and joint swelling. Skin: Negative for rash. Neurological: Negative for dizziness, tremors, syncope, weakness, light- headedness and headaches. Psychiatric/Behavioral: Negative for decreased concentration and suicidal ideas. The patient is notnervous/anxious. Hematological: Does not bruise/bleed easily. Endocrine: Negative for cold intolerance, heat intolerance, polydipsia, polyphagia and polyuria. Objective Physical Exam Vitals reviewed. Constitutional: Appearance: Normal appearance. HENT: Right Ear: Tympanic membrane normal. Left Ear: Tympanic membrane normal. Nose: Nose normal. Mouth/Throat: Mouth: Mucous membranes are moist. Pharynx: Oropharynx is clear. Eyes: Pupils: Pupils are equal, round, and reactive to light. Cardiovascular: Rate and Rhythm: Normal rate and regular rhythm. Pulses: Normal pulses. Heart sounds: Normal heart sounds. Pulmonary: Effort: Pulmonary effort is normal. Breath sounds: Normal breath sounds. Abdominal: General: Abdomen is flat. Bowel sounds are normal. Palpations: Abdomen is soft. Musculoskeletal: General: Normal range of motion. Cervical back: Normal range of motion. Skin: General: Skin is warm and dry. Capillary Refill: Capillary refill takes less than 2 seconds. Neurological: Mental Status: He is alert and oriented to person, place, and time. Assessment/Plan Problem List Items Addressed This Visit 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 (CMS/HCC) - Primary Relevant Orders XR chest 2 views Acute right-sided thoracic back pain 2 days ago developed sharp stabbing right sided back pain. Pain is intermittent. Reports pain lasts 30-40 seconds of severe pain then dulls to a tolerable pain. At its peak rates pain 10/10 At rest 4.5 on scale of 0-10. Has history of malignant neoplasm of right bronchus, had lobectomy done [address] with contrast done in 07/2024 with no acute findings. Reports baseline dyspnea with exertion but states has been worsening recently. Does have hx of kidney stones however states this pain is very different and is a bit high on the back to be CVA tenderness. Will treat as musculoskeletal pain today, CXR to rule out respiratory causes. Trial Zanaflex at this time. If symptoms do not improve will order additional imaging. Advised pt to update pulmonology on worsening shortness of breath with exertion as well. Relevant Medications tiZANidine (Zanaflex) 4 MG tablet documented in this encounterFulton Medical Center- [id number] Instructions* Patient Instructions* Ksenia Arzola NP - 12/02/2024 2:30 PM EST Have chest Xray completed. Have blood work completed. Call pulmonology and update them on worsening shortness of breath with activity. Get scheduled to see them. Worsening symptoms, chest pain, shortness of breath, loss of bowel or bladder sensation, sudden numbness/tingling GO TO NEAREST EMERGENCY DEPARTMENT!!! documented in this encounterFulton Medical Center- [id number] History of Present illness Narrative* Walt Jackson, DO - 11/27/2024 11:20 AM EST Subjective Zaid Mello is a 64 y.o. 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 He is otherwise doing well from a cardiovascular standpoint with no recurrent angina or shortness of breath, nitra te usage or hospitalizations He has a history of remote CABG. he presented with inferior STEMI in March 2021 with primary revascularization of the S-RCA with large 5 mm stent. Last catheterization from April 2022 revealed widely patent grafts x3, widely patent stent in the vein graft to the RCA, and preserved left ventricular function with ejection fraction of 50 to 55%. He does have a very capacious/aneurysmal SVG- RCA that underwent IVUS assessment in June 2022 which revealed mild plaque and nonobstructive disease. He has underlying COPD, former smoker, the above-mentioned previous non-STEMI, remote CABG, remote stenting of the vein graft to the RCA, he is mildly overweight. Recent lipid panel from this past year reveals an LDL of 53 Recommendations: Obtain lipid panel within the next year,, follow-up in 1 year Review of Systems All other systems reviewed and are negative. Vitals: 11/27/24 1131 BP: 132/78 BP Location: Left arm Patient Position: Sitting Pulse: 60 Weight: 111 kg (244 lb) Height: 1.753 m (5' 9 ) Objective Physical Exam Constitutional: Appearance: Normal appearance. HENT: Nose: Nose normal. Neck: Vascular: No carotid bruit. Cardiovascular: Rate and Rhythm: Normal rate. Pulses: Normal pulses. Heart sounds: Normal heart sounds. Pulmonary: Effort: Pulmonary effort is normal. Abdominal: General: Bowel sounds are normal. Palpations: Abdomen is soft. Musculoskeletal: General: Normal range of motion. Cervical back: Normal range of motion. Right lower leg: No edema. Left lower leg: No edema. Skin: General: Skin is warm and dry. Neurological: General: No focal deficit present. Mental Status: He is alert. Psychiatric: Mood and Affect: Mood normal. Behavior: Behavior normal. Thought Content: Thought content normal. Judgment: Judgment normal. Allergies Patient has no known allergies. Current Medications Current Outpatient Medications: Anoro Ellipta 62.5-25 mcg/actuation blister with device, Inhale 1 puff once daily., Disp: , Rfl: aspirin 81 mg EC tablet, Take 1 tablet (81 mg) by mouth once daily., Disp: , Rfl: atorvastatin (Lipitor) 80 mg tablet, TAKE 1 TABLET AT BEDTIME, Disp: 90 tablet, Rfl: 3 finasteride (Proscar) 5 mg tablet, Take 1 tablet (5 mg) by mouth once daily., Disp: , Rfl: isosorbide mononitrate ER (Imdur) 60 mg 24 hr tablet, Take 1 tablet (60 mg) by mouth once daily., Disp: 90 tablet, Rfl: 3 metFORMIN (Glucophage) 500 mg tablet, Take 1 tablet (500 mg) by mouth once daily., Disp: , Rfl: metoprolol tartrate (Lopressor) 25 mg tablet, Take 1 tablet (25 mg) by mouth 2 times a day., Disp: , Rfl: multivit-min/ferrous fumarate (MULTI VITAMIN ORAL), Take 1 tablet by mouth once daily., Disp: , Rfl: nitroglycerin (Nitrostat) 0.4 mg SL tablet, Place under the tongue., Disp: , Rfl: pantoprazole (ProtoNix) 40 mg EC tablet, Take 1 tablet (40 mg) by mouth early in the morning.., Disp: , Rfl: tamsulosin (Flomax) 0.4 mg 24 hr capsule, Take 1 tablet by mouth 2 times a day., Disp: , Rfl: Assessment/Plan 1. Coronary artery disease involving coronary bypass graft of poarch heart, unspecified whether angina present Follow Up In Cardiology 2. ASHD (arteriosclerotic heart disease) 3. ST elevation myocardial infarction (STEMI), unspecified artery (Multi) 4. S/P CABG (coronary artery bypass graft) Follow Up In Cardiology 5. Status post insertion of drug eluting coronary artery stent 6. Former smoker 7. BMI 36.0-36.9,adult Scribe Attestation By signing my name below, I, Fany Valdivia LPN attest that this documentation has been prepared under the direction and in the presence of Sumeet Jackson DO. Provider Attestation - Scribe documentation All medical record entries made by the Scribe were at my direction and personally dictated by me. Ihave reviewed the chart and agree that the record accurately reflects my personal performance of the history, physical exam, discussion and plan. documented in this encounterBethesda [facility] Hospital Work Phone: 1(442) 629-132801-30-2025 Instructions* Patient Instructions* Madison Katz LPN - 11/27/2024 11:20 AM EST Please bring all medicines, vitamins, and herbal supplements with you when you come to the office. Prescriptions will not be filled unless you are compliant with your follow up appointments or have a follow up appointment scheduled as per instruction of your physician. Refills should be requested at the time of your visit. BMI was above normal measurement. Current weight: 111 kg (244 lb) Weight change since last visit (-) denotes wt loss 19 lbs Weight loss needed to achieve BMI 25: 75.1 Lbs Weight loss needed to achieve BMI 30: 41.3 Lbs Provided instructions on dietary changes Provided instructions on exercise. documented in this encounterBethesda North Hospital Work Phone: 1(477) 202-411801-14-2025 History of Present illness Narrative* ALONZO Perez - 11/11/2024 10:15 AM EST HISTORY OF PRESENT ILLNESS: EST PT Zaid Mello is an 64 y.o. @ male. EST PT RECHECK LT SHOULDER PAIN- S/P LT SA CORTISONE INJ 10/07/24- HERE FOR EMG LT UE RESULTS 10/09/24 [facility] XRAY LT SHOULDER 09/30/24 [facility] LT SHOULDER SA CORTISONE INJ 10/07/24 EMG LT UE 10/09/24 [facility] NOTES GOOD RELIEF FROM INJECTION BUT STATES IT IS STARTING TO WEAR OFF. PAIN ANTERIOR AND INTO BICEP, INTERMITTENT. DEPENDING ON USE. PAIN ISN'T BAD IT WAS. TAKING TYL ARTHRITIS DAILY. +N/T ENTIRE HAND. DENIES POPPING/GRINDING. GOOD ROM. WAKES AT HS. RT HANDED. ALLERGIES: No Known Allergies HOME MEDICATIONS: Current Outpatient Medications Medication Instructions acetaminophen (TYLENOL) 500 mg, Daily PRN Anoro Ellipta 62.5-25 MCG/ACT aerosol powder 1 puff, Daily RT aspirin 81 mg, Daily atorvastatin (LIPITOR) 80 mg, Nightly isosorbide mononitrate ER (IMDUR) 60 mg, Daily metFORMIN XR (GLUCOPHAGE-XR) 500 mg, Oral, Daily with evening meal, Do not crush, chew, or split. metoprolol tartrate (LOPRESSOR) 25 mg, 2 times daily nitroglycerin (NITROSTAT) 0.4 mg, Every 5 min PRN pantoprazole (PROTONIX) 40 mg, Oral, Daily before breakfast, Do not crush, chew, or split. tamsulosin (FLOMAX) 0.4 mg, Daily PHYSICAL EXAM: Shoulder Musculoskeletal Exam Inspection Left Left shoulder inspection is normal. Ecchymosis: none Peripheral edema: none Atrophy: none Masses: none Palpation Left Crepitus: no crepitus Increased warmth: none Tenderness: present Anterior shoulder: mild AC joint: mild Lateral arm: mild Range of Motion Right Right shoulder active abduction: + pain passing 90 degrees. Left Left shoulder range of motion is normal. Active ROM: pain. Passive ROM: pain. Internal rotation: L2. Strength Left External rotation: 5/5. Internal rotation: 5/5. Abduction: 5/5. Abduction is affected by pain. Biceps: 5/5. Triceps: 5/5. Neurovascular Left Radial pulse: normal and 2+ Capillary refill: <3 sec Axillary nerve sensory distribution: normal Ulnar nerve sensory distribution: normal Median nerve sensory distribution: decreased Scapula Left Left shoulder scapula is normal. Position: normal Winging: none Special Tests Left Rotator Cuff Signs Armendariz test: positive Painful arc test: positive Biceps/lisa Signs Speed's test: negative AC Joint Signs Single finger test: positive General Constitutional: appears stated age Labored breathing: no Neurological: alert and oriented x3 Skin: intact Lymphadenopathy: none Hand/Wrist Musculoskeletal Exam Inspection Left Erythema: none Ecchymosis: none Edema: none Deformity: mild Palpation Left Left hand palpation is normal. Wrist tenderness to palpation: carpal canal Palpation additional comments: DENIES PAIN TO PALPATION OF HAND/ WRIST JOINT Range of Motion Left Hand Left hand range of motion is normal. Range of motion additional comments: ABLE TO MAKE FULL FIST Strength Left Hand Left hand strength is normal. 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 Tobacco Use: Medium Risk (11/11/2024) Patient History Smoking Tobacco Use: Former Smokeless Tobacco Use: Never Passive Exposure: Past Alcohol Use: Not At Risk (06/19/2024) AUDIT-C Frequency of Alcohol Consumption: Never Average Number of Drinks: Patient does not drink Frequency of Binge Drinking: Never IMAGING: EMG 10/09/24: + Mild carpal tunnel left hand Procedures No orders of the defined types were placed in this encounter. ASSESSMENT: ICD-10-CM 1. Acute pain of left shoulder M25.512 2. Numbness and tingling in left hand R20.0 R20.2 Assessment & Plan 1. Left shoulder pain. The patient has a history of AC joint arthritis with impingement symptoms, and a rotator cuff tear can not be ruled out. He reports significant relief from a subacromial injection, which has improvedhis range of motion and reduced pain, particularly at bedtime. However, he still occasionally experiences symptoms at night. Given his current level of functioning, he prefers to avoid surgery at this time. If symptoms persist or worsen, an MRI will be considered for further evaluation, including possible subacromial decompression and assessment for a potential rotator cuff tear. 2. Left hand numbness. The patient has experienced intermittent numbness in his left hand since a prior heart catheterization surgery. An EMG revealed mild carpal tunnel syndrome in the left hand, which was not previously present. He has been performing home exercises, which have led to improvement. He will try wearing anight splint to help with symptoms, as they are mostly noted at night with the position of his wrist. If symptoms persist, carpal tunnel surgery release is recommended, which was discussed at bedside. The patient is pleased with the progress to date on both symptoms and will call if anything worsens. Questions answered in laymen terms at the bedside. The diagnosis, home exercise plan and any ongoing restrictions/ recommendations reviewed. If unable to be reached in office, I recommend evaluation at nearest Emergency Room if any symptoms worsened or new symptoms develop for requiring urgent evaluation. documented in this encounterFulton Medical Center- [id number] History of Present illness Narrative* Junie Priest, PT - 10/20/2024 10:30 AM EST Images from the original note were not included. Physical Therapy Physical Therapy Evaluation Visit Patient Name: Zaid Mello Today's Date: 10/20/2024 Encounter Diagnoses Name Primary? Impingement of left shoulder Yes Visit number: 2 Sup time: 25 min Total time: 30 min Time in: 10:30 am Time out: 11:00 am Subjective Zaid Mello 63 y.o. male presents to physical therapy w/ chief c/o L shoulder pain also having some n/t mostly carpal tunnel related per pt. Mechanism of Onset: no known AMINTA/cause, pain and mobility issues started around february ~7 months ago, worsening other than min improvement with recent injection. Current deficits: Pain, decreased ROM, decreased flexibility, weakness Pain: no pain at rest, mild at times today, feels injection helping vs starting PT or both Location: L shoulder and ant down bicep area at times Aggravating Factors: reaching towards overhead, up and out to side and behind back, ADLs/self care,difficulty sleeping as well Relieving factors: rest, ice, injection Imaging: no MRI to date only X-ray with AC OA noted Occupation: Unable to work due to back issues Precautions: Low back pain, LE s/s seeing pain management Objective L shoulder AROM: flex to 125 pain around 90 and especially end range, abd to 110 significant ERP, IR/ext behind back min limiting with pain, ER near normal limits L shoulder strength: flex and abd 4/5 min pain, IR= 5/5, ER=4/5 painful ext= 5/5 MMT Posture: mild FW/rounded shoulders Palpation: unremarkable Special tests: + impingement sign, + neers and armendariz jorge l impingement testing Quick DASH= 39% impaired at IE Treatment Interventions Manual Therapy: PROM, gentle stretching prn Therapeutic Exercise: per DALTON grid, ROM, flexibility, strength x 25 min sup demo and verbal cues for correct technique increased some reps, added light band resistance Rows/LAEs, IE no issues just min soreness. Modalities: CP/ESU x declined today no pain post DALTON, advised to ice at home prn and let us know. Assessment/Plan L shoulder pain, decreased ROM, flexibility, strength causing increased difficulty with ADLs self care and decreased QOL Pt tolerated all well greatly improved AROM flex, abd remains limited and pain full just over 90. documented in this encounterFulton Medical Center- [id number] History of Present illness Narrative* Junie Priest, PT - 10/16/2024 1:00 PM EST Images from the original note were not included. Physical Therapy Physical Therapy Evaluation Visit Patient Name: Zaid Mello Today's Date: 10/16/2024 Encounter Diagnoses Name Primary? Impingement of left shoulder Yes Visit number: 1 Subjective Zaid Mello 63 y.o. male presents to physical therapy w/ chief c/o L shoulder pain also having some n/t mostly carpal tunnel related per pt. Mechanism of Onset: no known AMINTA/cause, pain and mobility issues started around february ~7 months ago, worsening other than min improvement with recent injection. Current deficits: Pain, decreased ROM, decreased flexibility, weakness Pain: mild at rest, mod at times Location: L shoulder and ant down bicep area at times Aggravating Factors: reaching towards overhead, up and out to side and behind back, ADLs/self care,difficulty sleeping as well Relieving factors: rest, ice, injection Imaging: no MRI to date only X-ray with AC OA noted Occupation: Unable to work due to back issues Precautions: Low back pain, LE s/s seeing pain management Objective L shoulder AROM: flex to 125 pain around 90 and especially end range, abd to 110 significant ERP, IR/ext behind back min limiting with pain, ER near normal limits L shoulder strength: flex and abd 4/5 min pain, IR= 5/5, ER=4/5 painful ext= 5/5 MMT Posture: mild FW/rounded shoulders Palpation: unremarkable Special tests: + impingement sign, + neers and armendariz jorge l impingement testing Treatment Interventions Education: HEP education with demonstration with handout and review, Educated on Eval Findings and POC, CP use x 10 min self care Manual Therapy: PROM, gentle stretching (add next session) Therapeutic Exercise: per DALTON grid, ROM, flexibility, strength x 15 min sup demo and verbal cues for correct technique Modalities: CP/ESU x 12 min end of session for pain relief Assessment/Plan L shoulder pain, decreased ROM, flexibility, strength causing increased difficulty with ADLs self care and decreased QOL Patient Goals Short Term Goal #1: pt will demo L shoulder AROM grossly WNL all planes pain free Short Term Goal #2: pt will self report impairment less than or equal to 10% per Quick DASH at DC Short Term Goal #3: pt will be ind with HEP for maintenance at DC and able to avoid further imagingand potential surgical intervention Pt will benefit from skilled PT to address the above impairments for 1-3x/week for 4-6 weeks pending pt needs/progress I hereby deem this POC medically necessary. Please sign below. Date: documented in this encounterFulton Medical Center- [id number] NoteCarpal tunnel syndrome left, mild New when compared to EDX evaluation dated 10/17/2023F[facility]- [id number] NoteCarpal tunnel syndrome left, mild New when compared to EDX evaluation dated 10/17/2023[place] [id number] History of Present illness Narrative* DONAVAN Al - 10/09/2024 12:30 PM EST Images from the original note were not included. Reason for Appointment: EMG Patient: Zaid Mello : 1960 EMG Computer: [employer] Referring Physician: Stephanie العراقي PA-C EMG: TAYA security sales manager: Toby Ventura RT(R) Office Location: [place] Reason for EMG: c/o numbness/tingling in left arm/hand. Hx of DM. Taking ASA. Comments: Procedure was explained to the patient who expressed understanding. Patient appeared to have tolerated the test well despite some discomfort due to the nature of the test. documented in this encounterFulton Medical Center- [id number] History of Present illness Narrative* ALONZO Perez - 10/07/2024 11:00 AM ESTAssociated Order(s): L Inj/Asp: L subacromial bursa Post-Procedure Diagnose(s): Impingement of left shoulder Images from the original note were not included. NAME: Zaid Mello : 1960 HISTORY OF PRESENT ILLNESS: NEW PT Zaid Mello is an 63 y.o. @ male. NEW PT C/O LT SHOULDER PAIN 5 MTHS (04/2024). NKI. KSENIA ARZOLA REFERRAL XRAY 09/30/24 [facility] PAIN DEEP IN JOINT. WORSE WITH MOVEMENTS. TAKING TYL ARTHRITIS DAILY. AT NIGHT AND WHEN WALKING WITH ARM DOWN, THE PAIN WILL RADIATE DOWN HIS ARM, WILL ALSO HAVE NUMBNESS TO ARM AND ENTIRE HAND. DENIES SWELLING. STATES A MONTH AGO HE NOTICED BRUISING ANTERIORLY. DENIES POPPING/GRINDING. GOOD ROM, PAINFUL. WAKES PT AT HS. RT HANDED. PAST MEDICAL HISTORY: Past Medical History: Diagnosis Date BPH (benign prostatic hyperplasia) CAD (coronary artery disease) (CMS/HCC) Cancer (CMS/HCC) Chest pain 10/04/2023 Chronic anticoagulation 10/04/2023 Chronic bilateral low back pain with right-sided sciatica Difficulty walking H/O heart artery stent 10/04/2023 Headache Headache, tension-type Heart attack (CMS/HCC) High cholesterol (CMS/HCC) Hyperlipidemia (CMS/HCC) Hypertension ([facility]/HCC) Lumbar spondylolysis 10/04/2023 Numbness Obesity 10/04/2023 Restless leg syndrome S/P triple vessel bypass 10/04/2023 Seizures ([facility]) 1973 PAST SURGICAL HISTORY: Past Surgical History: Procedure Laterality Date OTHER SURGICAL HISTORY 2004 Triple Bypass - stents SOCIAL HISTORY: Social History Occupational History Not on file Tobacco Use Smoking status: Former Current packs/day: 0.00 Average packs/day: 2.0 packs/day for 28.8 years (57.5 ttl pk-yrs) Types: Cigarettes Start date: 10/29/1976 Quit date: 08/02/2005 Years since quittin.1 Passive exposure: Past Smokeless tobacco: Never Vaping Use Vaping status: Never Used Substance and Sexual Activity Alcohol use: Never Drug use: Never Sexual activity: Not Currently Partners: Female control/protection: None ALLERGIES: No Known Allergies HOME MEDICATIONS: Current Outpatient Medications Medication Instructions acetaminophen (TYLENOL) 500 mg, Daily PRN Anoro Ellipta 62.5-25 MCG/ACT aerosol powder 1 puff, Daily RT aspirin 81 mg, Daily atorvastatin (LIPITOR) 80 mg, Nightly isosorbide mononitrate ER (IMDUR) 60 mg, Daily metFORMIN XR (GLUCOPHAGE-XR) 500 mg, Oral, Daily with evening meal, Do not crush, chew, or split. metoprolol tartrate (LOPRESSOR) 25 mg, 2 times daily nitroglycerin (NITROSTAT) 0.4 mg, Every 5 min PRN pantoprazole (PROTONIX) 40 mg, Oral, Daily before breakfast, Do not crush, chew, or split. tamsulosin (FLOMAX) 0.4 mg, Daily REVIEW OF SYSTEMS: Review of Systems Vitals: There is no height or weight on file to calculate BMI. Tobacco Use: Medium Risk (10/07/2024) Patient History Smoking Tobacco Use: Former Smokeless Tobacco Use: Never Passive Exposure: Past Alcohol Use: Not At Risk (06/19/2024) AUDIT-C Frequency of Alcohol Consumption: Never Average Number of Drinks: Patient does not drink Frequency of Binge Drinking: Never PHYSICAL EXAM: Shoulder Musculoskeletal Exam Inspection Left Left shoulder inspection is normal. Ecchymosis: none Peripheral edema: none Atrophy: none Masses: none Palpation Left Crepitus: no crepitus Increased warmth: none Tenderness: present Anterior shoulder: moderate Posterior shoulder: mild AC joint: mild Rotator cuff: mild Greater tuberosity: mild Trapezius: none Medial scapula: none Superior pole of scapula: none Bicipital groove: mild Proximal biceps: mild Distal biceps: none Lateral arm: mild Elbow: none Range of Motion Right Right shoulder active abduction: + pain passing 90 degrees. Left Left shoulder range of motion is normal. Active ROM: pain. Passive ROM: pain. Strength Left External rotation: 5/5. Internal rotation: 5/5. Abduction: 5/5. Abduction is affected by pain. Biceps: 5/5. Biceps are affected by pain. Triceps: 5/5. Neurovascular Left Radial pulse: normal and 2+ Capillary refill: <3 sec Axillary nerve sensory distribution: normal Scapula Left Left shoulder scapula is normal. Position: normal Winging: none Special Tests Left Rotator Cuff Signs Neer's test: positive Armendariz test: positive Painful arc test: positive Biceps/lisa Signs Speed's test: negative Instability Signs Anterior apprehension test: positive Special tests additional comments: Left hand noted for n/t in median nerve distribution. 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 General Constitutional: appears stated age Neurological: alert and oriented x3 IMAGING: Exam/Technique: AP Grashey and scapular Y views of the left shoulder were obtained. Comparison: None Findings: There are osteoarthritic changes in the acromioclavicular joint. There is no evidence alejandra acute osseous abnormality. No dislocation is demonstrated. 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 Otherwise normal left shoulder. L Inj/Asp: L subacromial bursa on 10/07/2024 11:41 AM Indications: pain Details: 21 G needle, posterior approach Medications: 40 mg methylPREDNISolone acetate 40 MG/ML Outcome: tolerated well, no immediate complications Utilizing aseptic technique with universal precautions . Pt given injection Left Shoulder SA space ( code [id number] LT) Procedure, treatment alternatives, risks and benefits explained, specific risks discussed. Consent was given by the patient. Patient was prepped and draped in the usual sterile fashion. Orders Placed This Encounter Procedures L Inj/Asp: L subacromial bursa This order was created via procedure documentation Ambulatory referral to Physical Therapy Standing Status: Future Standing Expiration Date: 04/07/2025 Referral Priority: Routine Referral Type: Consultation Referral Reason: Consult and Treat Referred to Provider: Junie Priest PT Requested Specialty: Physical Therapy Number of Visits Requested: 1 EMG AND NERVE CONDUCTION STUDY Standing Status: Future Standing Expiration Date: 10/07/2025 Scheduling Instructions: EMG of LT upper extremity to be done at [facility] neurology. ASSESSMENT: ICD-10-CM 1. Acute pain of left shoulder M25.512 2. Numbness and tingling in left hand R20.0 Ambulatory referral to Orthopaedic Surgery R20.2 3. Impingement of left shoulder M25.812 Ambulatory referral to Physical Therapy L Inj/Asp: L subacromial bursa 4. Arm weakness R29.898 EMG AND NERVE CONDUCTION STUDY 5. Arm pain, left M79.602 EMG AND NERVE CONDUCTION STUDY 6. Numbness R20.0 EMG AND NERVE CONDUCTION STUDY Assessment & Plan 1. Left shoulder pain. He has evidence of anterior apprehension, biceps tendon pain, and impingement symptoms. A course ofphysical therapy is recommended. He is agreeable to a cortisone injection today. The numbness and tingling symptoms have been acute on chronic, noted after a heart catheterization in 11/2022. Repeating the EMG of the left upper extremity with nerve distribution concerning for median nerve involvement was discussed. He notes the hand goes to sleep almost every night and sometimes now bothers him when he walks. He is consenting to cortisone injection today in the left shoulder. Follow-up The patient will follow up after therapy and EMG study. PROCEDURE The patient underwent a heart catheterization in 11/2022. Consider MRI of shoulder before stimulator implant in back. Questions answered in laymen terms at the bedside. The diagnosis, home exercise plan and any ongoing restrictions/ recommendations reviewed. If unable to be reached in office, I recommend evaluation at nearest Emergency Room if any symptoms worsened or new symptoms develop for requiring urgent evaluation. documented [facility] this [facility]- [id number] History of Present illness Narrative* Ksenia Arzola NP - 09/30/2024 2:42 PM ESTAssociated Problem(s): Low back pain potentially associated with radiculopathy MRI of the lumbar spine with and without contrast on 08/23/2024: No mass effect or abnormal enhancement. Circumferential disc bulge at L2/3 With moderate canal and moderate to severe left and mild right foraminal stenosis. At L3/4 there is a disc bulge with facet effusion with mild to moderate canal stenosis and moderate foraminal narrowing bilaterally. At L4/5 there is mild left and moderate to severe right foraminal narrowing. These were all similar to prior exam. MRI of the lumbar spine on 06/10/2024: Moderate degenerative changes with central and foraminal stenosis. Area of soft tissue signal at L4-5 neural foramen with suggestion for postcontrast MRI imaging Dr. Mckeon referred to Neurosurgery. Neurosurgery advised pt he was not a candidate for surgery at this time. Neurology has placed patient off work until 02/2025. Was referred back to PM. Is seeing PM on Sunday10/06/2025. Would like a second opinion from neurosurgery. Patient is going to look into neurosurgeons and callwith request for who he would like to see. 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 * Ksenia Arzola NP - 09/30/2024 2:39 PM ESTAssociated Problem(s): Lumbar spondylolysis Dr. Mckeon referred to Neurosurgery. Neurosurgery advised pt he was not a candidate for surgery at this time. Neurology has placed patient off work until 02/2025. Was referred back to PM. Is seeing PM on Sunday10/06/2025. Would like a second opinion from neurosurgery. Patient is going to look into neurosurgeons and callwith request for who he would like to see. * Ksenia Arzola NP - 09/30/2024 2:39 PM ESTAssociated Problem(s): GERD (gastroesophageal reflux disease) GERD reports Protonix has intermittently helped but when bends over he has reflux, with our withoutrecent food consumption. Reports sharp pain to abdomen after eating. Will refer to GI for EGD. * Ksenia Arzola NP - 09/30/2024 2:38 PM ESTAssociated Problem(s): Chronic left shoulder pain Chronic left shoulder pain, pain radiates down entire arm into fingers. Recent MRI done. Was referred form neurology to neurosurgery, neurosurgery believes shoulder pain is unrelated to polyneuropathy or DDD. Neurosurgery recommended pt follow up with ortho for shoulder pain. Will order imaging today and refer to ortho if clinically indicated. * Ksenia Arzola NP - 09/30/2024 2:38 PM ESTAssociated Problem(s): Diabetes mellitus type 2, noninsulin dependent (CMS/HCC) Most recent labs: hemoglobin A1C 8.3 Average FSBS range from patient does not check sugars. Was started on Metformin 08/2024. Will recheck A1C in November. Denies adverse effects from Metformin. No episode of hypoglycemia No medication adverse effects reported by the patient. Patient educated on lifestyle modifications, dietary restrictions, signs and symptoms of hypoglycemia/hyperglycemia and importance of eating regular consistent meals. Stressed upon importance of checking blood glucose at home and bring blood glucose log to appointments. All questions, concerns answered and addressed. Encouraged to call office if persistent hypoglycemia/hyperglycemia on home glucose monitoring noted. * Ksenia Arzola, [employer] - 09/30/2024 9:30 AM EST Images from the original note were not included. Subjective Patient ID: Zaid Mello is a 63 y.o. male who presents for Follow-up. HPI Dr. Mckeon referred to Neurosurgery. Neurosurgery advised pt he was not a candidate for surgery at this time. Neurology has placed patient off work until 02/2025. Was referred back to PM. Is seeing PM on Sunday10/06/2025. Would like a second opinion from neurosurgery. Patient is going to look into neurosurgeons and callwith request for who he would like to see. GERD reports Protonix has intermittently helped but when bends over he has reflux, with our withoutrecent food consumption. Reports sharp pain to abdomen after eating. Will refer to GI for EGD. Chronic left shoulder pain, pain radiates down entire arm into fingers. Recent MRI done. Was referred form neurology to neurosurgery, neurosurgery believes shoulder pain is unrelated to polyneuropathy or DDD. Neurosurgery recommended pt follow up with ortho for shoulder pain. Will order imagine today and refer if clinically indicated. DMII: Most recent labs: hemoglobin A1C 8.3 Average FSBS range from patient does not check sugars. Was started on Metformin 08/2024. Will recheck A1C in November. Denies adverse effects from Metformin. No episode of hypoglycemia No medication adverse effects reported by the patient. Patient educated on lifestyle modifications, dietary restrictions, signs and symptoms of hypoglycemia/hyperglycemia and importance of eating regular consistent meals. Stressed upon importance of checking blood glucose at home and bring blood glucose log to appointments. All questions, concerns answered and addressed. Encouraged to call office if persistent hypoglycemia/hyperglycemia on home glucose monitoring noted. Education: Check blood sugars daily, notify if <70 or >200. Take medications (pills or insulin) as directed. Monitor for s/s of hypoglycemia (sweaty, dizziness, nausea, vomiting, or shakiness). Watch for increase in thirst, urination, or appetite. Inspect feet frequently monitoring for open wounds , andalso recommend yearly eye exam. Pt should attempt to remain as physically active as chronic conditions allow, as well as trying to follow a diet low in carbohydrates, and simple sugars. Review of Systems Constitutional: Negative for activity change, appetite change, chills, diaphoresis, fatigue, fever and unexpected weight change. HENT: Negative for congestion, ear pain, rhinorrhea, sinus pressure, sinus pain, sneezing, sore throat, trouble swallowing and voice change. Eyes: Negative for visual disturbance. Respiratory: Negative for cough, chest tightness, shortness of breath and wheezing. Cardiovascular: Negative for chest pain, palpitations and leg swelling. Gastrointestinal: Negative for abdominal distention, abdominal pain, blood in stool, constipation, diarrhea and vomiting. Genitourinary: Negative for decreased urine volume, dysuria, flank pain, frequency, hematuria and urgency. Musculoskeletal: Positive for arthralgias, back pain and myalgias. Negative for gait problem and joint swelling. Skin: Negative for rash. Neurological: Positive for numbness. Negative for dizziness, tremors, syncope, weakness, light-headedness and headaches. Psychiatric/Behavioral: Negative for decreased concentration and suicidal ideas. The patient is notnervous/anxious. Hematological: Does not bruise/bleed easily. Endocrine: Negative for cold intolerance, heat intolerance, polydipsia, polyphagia and polyuria. Objective Physical Exam Vitals reviewed. Constitutional: Appearance: Normal appearance. HENT: Head: Normocephalic and atraumatic. Right Ear: Tympanic membrane normal. Left Ear: Tympanic membrane normal. Nose: Nose normal. Mouth/Throat: Mouth: Mucous membranes are moist. Pharynx: Oropharynx is clear. Eyes: Pupils: Pupils are equal, round, and reactive to light. Cardiovascular: Rate and Rhythm: Normal rate and regular rhythm. Pulses: Normal pulses. Heart sounds: Normal heart sounds. Pulmonary: Effort: Pulmonary effort is normal. Breath sounds: Normal breath sounds. Abdominal: General: Abdomen is flat. Bowel sounds are normal. Palpations: Abdomen is soft. Musculoskeletal: Cervical back: Normal range of motion. Lumbar back: Tenderness present. Decreased range of motion. Skin: General: Skin is warm and dry. Capillary Refill: Capillary refill takes less than 2 seconds. Neurological: General: No focal deficit present. Mental Status: He is alert and oriented to person, place, and time. Psychiatric: Mood and Affect: Mood normal. Behavior: Behavior normal. Assessment/Plan Problem List Items Addressed This Visit Low back pain potentially associated with radiculopathy MRI of the lumbar spine with and without contrast on 08/23/2024: No mass effect or abnormal enhancement. Circumferential disc bulge at L2/3 With moderate canal and moderate to severe left and mild right foraminal stenosis. At L3/4 there is a disc bulge with facet effusion with mild to moderate canal stenosis and moderate foraminal narrowing bilaterally. At L4/5 there is mild left and moderate to severe right foraminal narrowing. These were all similar to prior exam. MRI of the lumbar spine on 06/10/2024: Moderate degenerative changes with central and foraminal stenosis. Area of soft tissue signal at L4-5 neural foramen with suggestion for postcontrast MRI imaging Dr. Mckeon referred to Neurosurgery. Neurosurgery advised pt he was not a candidate for surgery at this time. Neurology has placed patient off work until 02/2025. Was referred back to PM. Is seeing PM on Sunday10/06/2025. Would like a second opinion from neurosurgery. Patient is going to look into neurosurgeons and callwith request for who he would like to see. Paresthesia and pain of extremity EMG of the bilateral lower extremities on 07/17/2024: Generalized process such as polyneuropathy which is axonal loss and type and severe in degree electrically. GERD (gastroesophageal reflux disease) - Primary GERD reports Protonix has intermittently helped but when bends over he has reflux, with our withoutrecent food consumption. Reports sharp pain to abdomen after eating. Will refer to GI for EGD. Relevant Orders Ambulatory referral to Gastroenterology Periumbilical abdominal pain Relevant Orders Ambulatory referral to Gastroenterology Chronic left shoulder pain Chronic left shoulder pain, pain radiates down entire arm into fingers. Recent MRI done. Was referred form neurology to neurosurgery, neurosurgery believes shoulder pain is unrelated to polyneuropathy or DDD. Neurosurgery recommended pt follow up with ortho for shoulder pain. Will order imaging today and refer to ortho if clinically indicated. Relevant Orders XR shoulder 2+ views left Numbness and tingling in left hand Relevant Orders XR shoulder 2+ views left Diabetes mellitus type 2, noninsulin dependent ([facility]) Most recent labs: hemoglobin A1C 8.3 Average FSBS range from patient does not check sugars. Was started on Metformin 08/2024. Will recheck A1C in November. Denies adverse effects from Metformin. No episode of hypoglycemia No medication adverse effects reported by the patient. Patient educated on lifestyle modifications, dietary restrictions, signs and symptoms of hypoglycemia/hyperglycemia and importance of eating regular consistent meals. Stressed upon importance of checking blood glucose at home and bring blood glucose log to appointments. All questions, concerns answered and addressed. Encouraged to call office if persistent hypoglycemia/hyperglycemia on home glucose monitoring noted. Relevant Orders Hemoglobin A1c Microalbumin / creatinine urine ratio Comprehensive metabolic panel CBC and differential documented in this [facility]12-03-2024 Instructions* Patient Instructions* Ksenia Arzola NP - 09/30/2024 9:30 AM EST Have Xray of shoulder completed. Keep appointment with Pain Management on Sunday. Research Neurosurgeons and call my office with who you would like to be referred to. Referral sent to GI-they will call you. If you don't hear from them in 2 weeks, call my office! Have labs done in November. Call if you need anything! documented in this [facility]11-27-2024 History of Present illness Narrative* Mary Barahona NP - 09/24/2024 9:00 AM EST Images from the original note were not included. Chief Complaint Patient presents with Back Pain Subjective Zaid Mello is a 63 y.o. male. History of Present Illness The patient presents today for follow-up. He is accompanied by his . He had labs completed for review. He states he notified his primary care provider of the elevated hemoglobin A1c lab, and theystarted him on metformin. The patient was evaluated by Dr. Devi (neurosurgery) on 09/16/2024. He states Dr. Devi did not believe any surgical intervention was warranted at that time and recommended he follow-up with pain management. He completed almost 2 months of physical therapy prior to being evaluated by Dr. Mckeon, and this did not provide subjective benefit for his symptoms. The patient reports bilateral low back pain (right more significant than left). This is chronic andconstant. Severity is 5/10 to 6/10 on average. He also reports constant pain in the bilateral anterior thighs (right more significant than left). His back pain is aggravated by activity, walking for extended periods of time, and standing up after sitting for extended periods of time. He states he used to walk 8 to 10 miles per day but can only walk 1 mile now before having to stop due to pain. Hereports having a high pain tolerance. He takes Tylenol 500 mg once a day and states this will, take the edge off. The patient denies saddle anesthesia or bowel/bladder dysfunction. He denies any recent falls. He reports mild weakness in the lower extremities which is chronic. He reports an intermittent burning sensation in the plantar aspect of the bilateral feet which is worse when sitting. He denies numbnessor paresthesias in any other locations. The patient and his deny any further concerns. Review of Systems Constitutional: Negative for appetite change, chills, fatigue, fever and unexpected weight change. HENT: Negative for trouble swallowing and voice change. Eyes: Negative for visual change, double vision or loss of vision Respiratory: Negative for cough, shortness of breath and wheezing. Cardiovascular: Negative for chest pain and palpitations. Gastrointestinal: Negative for blood in stool, nausea and vomiting. Musculoskeletal: Positive for arthralgias and back pain. Negative for gait problem and myalgias. Neurological: Positive for weakness (mild lower extremity) and numbness. Negative for dizziness, tremors, seizures, syncope, facial asymmetry, speech difficulty, light-headedness and headaches. Psychiatric/Behavioral: Negative for confusion, hallucinations and suicidal ideas. The patient is not nervous/anxious. Home Medication List acetaminophen 500 MG tablet; Commonly known as: Tylenol Anoro Ellipta 62.5-25 MCG/ACT aerosol powder ; Generic drug: Umeclidinium-Vilanterol aspirin 81 MG EC tablet atorvastatin 80 MG tablet; Commonly known as: Lipitor isosorbide mononitrate ER 60 MG 24 hr tablet; Commonly known as: Imdur metFORMIN XR 500 MG 24 hr tablet; Commonly known as: Glucophage-XR; Take 1 tablet (500 mg) by mouthin the evening. Take with meals Do not crush, chew, or split. metoprolol tartrate 25 MG tablet; Commonly known as: Lopressor nitroglycerin 0.4 MG SL tablet; Commonly known as: Nitrostat pantoprazole 40 MG EC tablet; Commonly known as: Protonix; Take 1 tablet (40 mg) by mouth in the morning. Take before meals. Do not crush, chew, or split. tamsulosin 0.4 MG 24 hr capsule; Commonly known as: Flomax Past Medical History: Diagnosis Date BPH (benign prostatic hyperplasia) CAD (coronary artery disease) (CMS/HCC) Cancer ([facility]/HCC) Chest pain 10/04/2023 Chronic anticoagulation 10/04/2023 Chronic bilateral low back pain with right-sided sciatica Difficulty walking H/O heart artery stent 10/04/2023 Headache Headache, tension-type Heart attack (CMS/HCC) High cholesterol (CMS/HCC) Hyperlipidemia (CMS/HCC) Hypertension ([facility]) Lumbar spondylolysis 10/04/2023 Numbness Obesity 10/04/2023 Restless leg syndrome S/P triple vessel bypass 10/04/2023 Seizures ([facility]) 1972 Past Surgical History: Procedure Laterality Date OTHER SURGICAL HISTORY 2004 Triple Bypass - stents No family history on file. Social History Tobacco Use Smoking status: Former Current packs/day: 0.00 Average packs/day: 2.0 packs/day for 28.8 years (57.5 ttl pk-yrs) Types: Cigarettes Start date: 10/29/1976 Quit date: 08/02/2005 Years since quittin.1 Passive exposure: Past Smokeless tobacco: Never Substance Use Topics Alcohol use: Never Allergies: Patient has no known allergies. Vitals: 09/24/24 0857 BP: 148/84 Pulse: 67 SpO2: 97% Body mass index is 36.18 kg/m . weight: 245 lb Neurologic exam: Mental status and general appearance: Awake and alert with unlabored respirations. Oriented to person, place, and time. Recent and remotememory are intact. Speech is clear and fluent without aphasia. Speech is non-dysarthric. Attention and concentration are normal. Fund of knowledge is appropriate for level of education. Cranial nerves: CN II: Visual acuity is normal. Visual morel full to confrontation. CN III, IV, : Pupils are equal, round, and reactive to light. Extraocular movements intact. No ptosis present. CN V: Facial sensation is normal. CN VII: Full and symmetric facial movement. CN VIII: Hearing is normal to finger rub bilaterally. CN IX and X: Palate elevates symmetrically. CN XI: Shoulder shrug is normal bilaterally. CN XII: Tongue is midline without atrophy or fasciculation. Motor: RUE strength deltoid , biceps , triceps , wrist extensors , wrist flexor , and drawing kiln supervisor strength 5/5. LUE strength deltoid , biceps , triceps , wrist extensors , wrist flexor , and drawing kiln supervisor strength 5/5. RLE strength iliopsoas, quadriceps, tibialis anterior, plantar flexion, and dorsiflexion strength 5/5. LLE strength iliopsoas, quadriceps, tibialis anterior, plantar flexion, and dorsiflexion strength 5/5. Tone and bulk are normal. Sensory: Sensation is intact to light touch throughout all four extremities. Sensation is intact to temperature in all extremities but reduced in the distal lower extremities. Vibratory sensation is reduced in the distal lower extremities. Reflexes: RUE biceps reflex 1+ , brachioradialis reflex 1+. LUE biceps reflex 1+ , brachioradialis reflex 1+. RLE Knee reflex 0. LLE Knee reflex 0. Coordination: [id number] testing normal. Rapid alternating movements are normal. Gait: Normal. Review and summary of old records: Labs at [facility] on 08/26/24: Hemoglobin A1c 8.9%. Vitamin B12 423. Vitamin B6 5. TSH 0.67. Syphilis non reactive. Serum copper 74. Serum protein electrophoresis unremarkable. EMG of the bilateral lower extremities on 07/17/2024: Generalized process such as polyneuropathy which is axonal loss and type and severe in degree electrically. Superimposed radicular process can not be excluded. MRI of the lumbar spine with and without contrast on 08/23/2024: No mass effect or abnormal enhancement. Circumferential disc bulge at L2/3 With moderate canal and moderate to severe left and mild right foraminal stenosis. At L3/4 there is a disc bulge with facet effusion with mild to moderate canal stenosis and moderate foraminal narrowing bilaterally. At L4/5 there is mild left and moderate to severe right foraminal narrowing. These were all similar to prior exam. MRI of the lumbar spine on 06/10/2024: Moderate degenerative changes with central and foraminal stenosis. Area of soft tissue signal at L4-5 neural foramen with suggestion for postcontrast MRI imaging. Assessment/Plan Diagnoses and all orders for this visit: Degeneration of intervertebral disc of lumbar region, unspecified whether pain present The patient reports low back pain, pain in the anterior bilateral thighs, and mild lower extremity weakness. All of these symptoms raise suspicion for lumbar radiculopathy, and he has DDD of the lumbar spine which could be contributory. MRI of the lumbar spine on 08/23/24 identified multilevel degenerative disease with varying levels of spinal canal stenosis and neural foraminal stenosis. At L2, there was mild mass effect on the exiting left nerve roots. The patient has tried gabapentin, Lyrica, lumbar injections, and multiple courses of physical therapy previously without success for symptommanagement. He was evaluated by Dr. Devi (neurosurgery) on 09/16/24. I reviewed the appointment note. Dr. Devi, per documentation, did not believe the patient had a surgical entity with regard to his back and leg pain and recommended pain management consultation at that time. I do believe evaluation and treatment by a pain medicine specialist could offer benefit for the patient's symptoms. No focal weakness is identified on clinical exam today. PLAN: - Referral to pain management for further evaluation and treatment. I advised the patient to notifyour office if he is not contacted by pain management to schedule an appointment within 1 week of today. He verbalizes understanding - Red flag symptoms of spinal cord compression/myelopathy have been discussed with the patient. Thepatient understands to seek emergent care in the emergency department if he develops any worsening symptoms of these in the future Abnormal magnetic resonance imaging of lumbar spine MRI of the lumbar spine without contrast on 06/10/24 detailed a soft tissue signal abnormality near the neural foramen on the right at L4/L5. Postcontrast MRI imaging was recommended by the radiologist for further evaluation. MRI of the lumbar spine with and without contrast on 08/23/24 did did not identify any contrast enhancing abnormalities. Polyneuropathy The patient has polyneuropathy as identified on BLE EMG from 07/17/2024 (axonal loss, severe). His hemoglobin A1c was 8.9% recently, consistent with diabetes, and I believe this is likely causative for his polyneuropathy. Laboratory evaluation on 08/26/24 did not identify an alternative cause. He reports intermittent paresthesias in the plantar aspect of the bilateral feet which could be, in part, related to polyneuropathy. PLAN: - I reviewed lab results with the patient - I educated the patient on diabetes and the association between diabetes and neuropathy - I advised the patient to follow up closely with his primary care provider for adequate blood glucose control to prevent adverse health effects and further nerve damage. We discussed lifestyle interventions to help reduce blood glucose. He verbalizes understanding The patient may not be able to perform certain job duties at the level of expectation in his typical work environment. He states he cannot have light duty at his job. He reports substantial difficulty performing his job duties, and I believe it would be unsafe to ask him to perform these. He has clear evidence of polyneuropathy and substantial degenerative disc disease in the lumbar spine. I believe the patient should remain off work and would encourage him to pursue disability with an admitted attorneys. Diagnosis and treatment options discussed in detail. All questions answered. The patient verbalizesunderstanding and is agreeable to the plan. Discussion in layman's terms. Follow up in the office within 4 months; sooner if needed for new or worsening symptoms. Mary Barahona NP [facility] documented in this [facility]11-27-2024 Instructions* Patient Instructions* Mary Barahona NP - 09/24/2024 9:00 AM EST - Referral to pain management - Follow up closely with primary care provider for management of diabetes documented in this [facility]11-27-2024 Miscellaneous Notes* Telephone Encounter - Esperanza Maldonado LPN - 09/24/2024 8:49 AM EST Contacted the Pt to verify who his PCP is so that his office visit note with MD Era yesterday could be sent for an update. Note was sent to [facility], and was returned to us today in faxes stating he is not a Pt. There currently. documented in this [facility]11-27-2024 Telephone encounter Note* Telephone Encounter - Esperanza Maldonado LPN - 09/24/2024 8:49 AM EST Contacted the Pt to verify who his PCP is so that his office visit note with MD Era yesterday could be sent for an update. Note was sent to [facility], and was returned to us today in faxes stating he is not a Pt. There currently. [facility]11-26-2024 History of Present illness Narrative* Veena Casiano MD - 09/23/2024 2:15 PM EST Images from the original note were not included. [address] [place] [address] [facility] [id number] Patient: Zaid Mello Date of : 1960 Encounter Date: 09/23/2024 History of Present Illness: Chief Complaint: follow up The patient is a 63 y.o. male, an established patient, and is here for follow- up. He has a history of lower urinary tract symptoms. Has been maintained on tamsulosin 0.8 mg. Was found to have bladderstones and had a successful cystolitholapaxy October 2023. After that reported he was voiding much better. He additionally had been started on finasteride but discontinued this after having some groin discomfort. That resolved after discontinuing the medication. In addition patient had gotten E coli and Enterococcus UTIs just before his cystolitholapaxy which continued through February 2024.. None since. He reports that he has had several images including CT scans in [place] and was told that he had a bladder stone as well as kidney stones bilaterally. He remains asymptomatic from these. No prior symptomatic kidney stones Summary of old records: Urinalysis today: No results for input(s): EXTPOCURCO , EXTPOCURCH , EXTPOCAPP , EXTPOCURBS , EXTPOCURBIL , EXTPOCUKET , EXTPOCUSPG , EXTPOCUHGB , EXTPOCUPRO , EXTPOCUURO , EXTPOCULEU , EXTPOCUNIT , EXTPOCUWBC , EXTPOCUBLD , EXTPOCURBC , EXTPOCUCRY , EXTPOCUBAC , EXTPOCUTREP , EXTPOCUPH , EXTPOCUL EE in the last 72 hours. Last BUN and creatinine: Lab Results Component Value Date BUN 13 04/15/2024 Lab Results Component Value Date CREATININE 0.87 04/15/2024 Last PSA: Lab Results Component Value Date [...] past medical history, past social history, past surgicalhistory and problem list. Past Medical History: Diagnosis Date Anesthesia emergence dysphoria BPH (benign prostatic hypertrophy) CAD (coronary artery disease) Cardiovascular disease Cataract Chest pain COPD (chronic obstructive pulmonary disease) (CMS-HCC) COPD, moderate (CMS-HCC) 04/09/2017 Diabetes mellitus (CMS-HCC) Emphysema of lung (CMS-HCC) Hyperlipemia Hypertension Injury of back Lung cancer (CMS-[facility]) right lower lobe thoracotomy 11/2022 Myocardial infarction ([facility]) Right lower lobe pulmonary nodule Seizures ([facility]) had from ages [age], none since age 27 Shortness of breath Visual impairment Past Surgical History: Procedure Laterality Date BRONCHOSCOPY WITH FLUORO N/A 05/24/2017 Performed by Maritza Jang DO at [facility] 03/2022 stent placed CORONARY ARTERY BYPASS GRAFT 01/16/2006 Triple DAVINCI THORACOTOMY ( RIGHT LOWER LOBE WEDGE RESECTION) , RIGHT LOBECTOMY,MEDIASTINAL LYMPH NODE DISECTION LYSIS OF PLEURAL ADHESIONS N/A 11/29/2022 Performed by Walt Barragan MD at [facility] LASER CYSTOSCOPY LITHOLAPAXY N/A 11/05/2023 Performed by Davis Pimentel MD at [facility] LIPOMA RESECTION PHACO KELMAN I IMPLANT INTRAOCULAR LENS Right 02/28/2018 Performed by Lashay Bui MD at [facility] PHACO KELMAN I IMPLANT INTRAOCULAR LENS Left 12/27/2017 Performed by Lashay Bui MD at [facility] excision of lypoma Family History [...] tablet (60 mg total) by mouth daily. metFORMIN XR (GLUCOPHAGE XR) 500 mg 24 hr tablet Take 1 tablet (500 mg total) by mouth daily with breakfast. metoprolol tartrate (LOPRESSOR) 25 mg tablet Take 1 tablet (25 mg total) by mouth in the morning and 1 tablet (25 mg total) before bedtime. 180 tablet 0 umeclidinium-vilanteroL (ANORO ELLIPTA) 62.5-25 mcg/actuation blister with device Inhale 1 puff in the morning. tamsulosin (FLOMAX) 0.4 mg capsule Take 2 capsules (0.8 mg total) by mouth nightly. 180 capsule 3 No current facility-administered medications for this visit. (All medications reviewed and updated by provider since last office visit or hospitalization) Allergies: No known drug allergies Tobacco History: Social History Tobacco Use Smoking Status Former Current packs/day: 0.00 Types: Cigarettes Quit date: 05/24/2005 Years since quittin.3 Smokeless Tobacco Never (If patient a smoker, smoking cessation counseling offered) Social History: Social History Substance and Sexual Activity Alcohol Use No Review of Systems: General: Negative for chills and fever. Cardiovascular: Negative for chest pain and shortness of breath. Gastrointestinal: Negative for constipation, diarrhea, nausea, and vomitting. -per HPI Physical Exam: BP 121/72 (BP Site: Left Arm, BP Postition: Sitting) Pulse 64 Ht 175.3 cm (5' 9 ) Wt 111.1 kg(245 lb) BMI 36.18 kg/m Assessment and Plan: Zaid was seen today for follow-up. Diagnoses and all orders for this visit: Benign prostatic hyperplasia with lower urinary tract symptoms, symptom details unspecified - X-ray abdomen ap 1 view; Future Kidney stones Other orders - tamsulosin (FLOMAX) 0.4 mg capsule; Take 2 capsules (0.8 mg total) by mouth nightly. Problem List Genitourinary Benign prostatic hyperplasia with lower urinary tract symptoms - Primary Overview ==== 12/24/2023 ==== still with significant lower urinary tract symptoms despite cystolitholapaxy. Has bladder outlet obstruction based on previous evaluation. We discussed transurethral section of prostate. Will also add finasteride. Should he derive some benefit with the finasteride he can certainly postpone TURP otherwise will proceed with TURP ====11/28/23====s/p cystolitholapaxy 11/05/23. Recent dysuria, hematuria, and difficulty voiding. Willstart Levaquin and watch for final culture results. Cath inserted today. Will void trial early nextweek ====09/05/23==== PVR 425. I told him to call if he wants to learn ISC, otherwise we will recheck in the short-term after increasing Flomax to 0.4 mg b.i.d.. 12/21/20: Lower urinary tract symptoms currently well controlled with tamsulosin. Refill given. Recheck 1 year with PSA 03/18/24: doing well using tamsulosin 0.8 mg. Getting recurrent UTIs with E coli and subsequently Enterococcus. Plan to have him finish his course of 7 days. If recurrent symptoms soon extend course of antibiotic. 09/23/2024: Currently symptom free. Plan to maintain tamsulosin 0.8 mg. Reportedly with a bladder and kidney stones. Plan to check KUB 1 year Relevant Orders X-ray abdomen ap 1 view Kidney stones Overview ====09/05/23==== canceled cystolitholapaxy. Persistent bladder stones seen on CT from 04/02/2023. One small stone in the right kidney as well. We will see what comes of his PSA before rescheduling surgery ==== 06/19/2022 ==== decubitus films and upright films could not necessarily clear the ureter. He certainly does have stones are noted on the CT. Reviewed again. Stones or mass size in the bladder that there certainly is not a guarantee that they will pass on their own. This certainly could get larger over time. ==== 05/31/2022 ==== first-time stone former. Patient did have some left-sided back discomfort. This is non urologic. Incidental finding on CT however of the nonobstructing stone right kidney as well as potential bladder stone verses nonobstructing UVJ stones in the right. I reviewed previous PET-CT from October demonstrating same location of stone in the bladder region without hydro. Plan: Suspicious sent for ureteral calculus but we can get a KUB with decubitus films as well and see if this could be visualized as a free-floating stone verses potential ureteral stone. If still query potential cysto psa as well Follow-up: Veena Casiano MD This note was created with the assistance of a speech recognition program. While intending to generate a timely document that accurately reflects the content of the visit, no guarantee can be provided that every grammatical or spelling mistake has been or will be identified or corrected. Thank you for your understanding. [facility] Evaluation [facility]* Diagnosis Onset Date Resolution Status Admit Date Chronic pain acuteNovember 2023 10:38amSpondylosis of lumbar region without myelopathy or radiculopathyacuteNovember 2023 10:38amAtypical mycobacterial disease acuteFebruary 2024 2:21pmDiastolic dysfunctionacuteFebruary 2024 2:21pmMild chronic obstructive pulmonary diseaseacuteFebruary 2024 2:21pm RhinitisacuteFebruary 2024 2:21pm [facility] Work Phone: [phone]) 646-634410-28-2024 History of Present illness Narrative* Natty Mckeon, - 08/25/2024 3:15 PM EDT Images from the original note were not included. Chief complaint: Low back pain Subjective Zaid Mello, 63 y.o., male Patient is here for a follow up with his , Adela. They are here to go over MRI Results Patient states his pain is constant in his back and legs. He admits to pain in the right shoulder. He states this has been going on as long as the back pain has so about 4-5 months. He describes the pain as achy. He states when he walks he feels the pain from his wrist to his shoulder, especially swinging his arm as he walks. He admits to pins and needles in his legs and pain in the bottom of the foot. He denies his sleep getting any better. He states he can never get comfortable and this affects hissleep. His states he gets about 2-3 hours of good sleep at night. He states tylenol will make the pain bearable. Patient and his deny any other concerns. Review of Systems Constitutional: Negative for appetite change, fatigue and fever. Respiratory: Negative for cough, shortness of breath and wheezing. Cardiovascular: Negative for chest pain, palpitations and leg swelling. Gastrointestinal: Negative for abdominal pain, constipation, diarrhea and nausea. Musculoskeletal: Positive for back pain. Negative for arthralgias, gait problem and myalgias. Neurological: Positive for numbness. Negative for dizziness, tremors and headaches. Past Medical History: Diagnosis Date BPH (benign prostatic hyperplasia) CAD (coronary artery disease) ([facility]) Chest pain 10/04/2023 Chronic anticoagulation 10/04/2023 Chronic bilateral low back pain with right-sided sciatica H/O heart artery stent 10/04/2023 Heart attack ([facility]) High cholesterol ([facility]) Hyperlipidemia ([facility]) Lumbar spondylolysis 10/04/2023 Obesity 10/04/2023 S/P triple vessel bypass 10/04/2023 Past Surgical History: Procedure Laterality Date OTHER SURGICAL HISTORY 2004 Triple Bypass - stents No family history on file. Social History Tobacco Use Smoking status: Former Current packs/day: 0.00 Average packs/day: 2.0 packs/day for 28.8 years (57.5 ttl pk-yrs) Types: Cigarettes Start date: 10/29/1976 Quit date: 08/02/2005 Years since quittin.0 Passive exposure: Past Smokeless tobacco: Never Substance Use Topics Alcohol use: Never Allergies: Patient has no known allergies. Vitals: 08/25/24 1511 BP: 130/68 Pulse: 68 SpO2: 96% Body mass index is 35.88 kg/m . weight: 243 lb Neurologic exam: Mental status: Awake, alert to person, place and time. Recent and remote memory are intact. Language is fluent without aphasia. Attention and concentration are normal. Fund of knowledge is appropriate for level of education. Cranial nerves: CN II: Visual acuity is normal. Visual morel full to confrontation. CN III, IV, : pupils equal round and reactive to light. Extraocular movements intact. No ptosis present. CN V: Facial sensation is normal. CN VII: Full and symmetric facial movement. CN VIII: Hearing is normal to finger rub bilaterally: CN IX and X: Palate elevates symmetrically. CN XI: Shoulder shrug is normal bilaterally. CN XII: Tongue is midline without atrophy or fasciculation. Motor: Strength is 5/5 In the bilateral upper extremities, 4-/ 5 in the right lower extremity and 4+/ 5 inthe left lower extremity Sensory: Sensation is intact to light touch throughout Four extremities. Reflexes: 1+ in the lower extremities. 2+in the upper extremities. Coordination: [id number]-hpcc testing and rapid alternating movements are normal Gait: Normal Review and summary of old records: EMG of the bilateral lower extremities on 07/17/2024: Generalized process such as polyneuropathy which is axonal loss and type and severe in degree electrically. Superimposed radicular process can not be excluded. MRI of the lumbar spine with and without contrast on 08/23/2024: No mass effect or abnormal enhancement. Circumferential disc bulge at L2/3 With moderate canal and moderate to severe left and mild right foraminal stenosis. At L3/4 there is a disc bulge with facet effusion with mild to moderate canal stenosis and moderate foraminal narrowing bilaterally. At L4/5 there is mild left and moderate to severe right foraminal narrowing. These were all similar to prior exam. MRI of the lumbar spine on 06/10/2024: Moderate degenerative changes with central and foraminal stenosis. Area of soft tissue signal at L4-5 neural foramen with suggestion for postcontrast MRI imaging. Assessment/Plan Diagnoses and all orders for this visit: Degenerative disc disease, lumbar Lumbar spondylolysis It is my impression that the patient has lumbar degenerative disc disease with evidence of canal and foraminal narrowing throughout the lumbar spine. There is multilevel canal and foraminal narrowing. The patient states he has trialed and failed multiple rounds of physical therapy. He has trialed and failed injections. He has trialed and failed gabapentin and Lyrica. He certainly does have foraminal and canal narrowing and based on imaging in impaired ability to function in his daily life I do feel that the patient needs a surgical consult Plan: Referral to neurosurgery Abnormal magnetic resonance imaging of lumbar spine MRI of the lumbar spine details a soft tissue signal abnormality near the neural foramen on the right at L4/5. Postcontrast MRI imaging is recommended for further evaluation by the radiologist. This will be important to rule out potentially life-threatening pathology such as malignant processes that could be debilitating or life-threatening if not correctly identified and treated. With contrast MRI imaging did not identify any contrast enhance abnormalities. Plan: Monitor clinically Polyneuropathy: EMG demonstrates polyneuropathy. This is axonal loss and type and severe in degree electrically. Superimposed radicular process can not be excluded in his likely present as above. The etiology for this is unclear to me. Plan: Polyneuropathy laboratory evaluation The patient is not able to function in his typical job. He can not have light duty at his job. He is having substantial difficulty with his job function and it would be unsafe to ask him to perform this. He has clear evidence of polyneuropathy and substantial degenerative disc disease. I believe the patient needs to remain off work until he can to be seen by the surgical team. Overall, I suspect the patient will need to apply for a total permanent social security disability. Pt has been fully educated on their diagnosis, lab results, treatment options, follow up plan, and return instructions documented in this encounterFulton [facility]- [id number] History of Present illness Narrative* Cornelio Birmingham MD - 08/21/2024 1:30 PM EDT Images from the original note were not included. [facility] 08/21/24 Zaid Mello is a 63 y.o. year old male seen today in the oncology clinic. No chief complaint on file. History of Present Illness: Mr. Mello is [...] mediastinal mass or adenopathy is evident. A righthepatic cysts, segment 8 appears stable measuring up [...] is doing well over the past six months. Complains about chronic shortness of breath at baseline. No significant cough or shortness of breath. No headaches or vision change. Weight has been stable. He stopped smoking several years ago. Past Medical History: [...] 05/24/2017 Performed by Maritza Jang DO at [facility] 03/2022 stent placed CORONARY ARTERY BYPASS GRAFT 01/16/2006 Triple DAVINCI THORACOTOMY ( RIGHT LOWER LOBE WEDGE RESECTION) , RIGHT LOBECTOMY,MEDIASTINAL LYMPH NODE DISECTION LYSIS OF PLEURAL ADHESIONS N/A 11/29/2022 Performed by Walt Barragan MD at [facility] LASER CYSTOSCOPY LITHOLAPAXY N/A 11/05/2023 Performed by Davis Pimentel MD at [facility] LIPOMA RESECTION PHACO KELMAN I IMPLANT INTRAOCULAR LENS Right 02/28/2018 Performed by Lashay Bui MD at [facility] PHACO KELMAN I IMPLANT INTRAOCULAR LENS Left 12/27/2017 Performed by Lashay Bui MD at [facility] SKIN BIOPSY excision of lypoma Family History Problem Relation Age of Onset Diabetes Father Heart disease Father Cancer Sister Stroke Maternal Grandmother No Known Problems Mother Social History Socioeconomic History Marital status: Tobacco Use Smoking status: Former Current packs/day: 0.00 Types: Cigarettes Quit date: 05/24/2005 Years since quittin.2 Smokeless tobacco: Never Vaping Use Vaping status: Never Used Substance and Sexual Activity Alcohol use: No Drug use: No Sexual activity: Yes Partners: Female Other Topics Concern Caffeine Use Yes Comment: 2 cups of coffee a day Social Drivers of Health Financial Resource Strain: Low Risk (06/19/2024) Received from [facility] Overall Financial Resource Strain (CARDIA) Difficulty of Paying Living Expenses: Not hard at all Food Insecurity: No Food Insecurity (06/19/2024) Received from [facility] Hunger Vital Sign Worried About Running Out of Food in the Last Year: Never true Ran Out of Food in the Last Year: Never true Transportation Needs: No Transportation Needs (06/19/2024) Received from [facility] PRAPARE - Transportation Lack of Transportation (Medical): No Lack of Transportation (Non-Medical): No Physical Activity: Insufficiently Active (06/19/2024) Received from [facility] Exercise Vital Sign Days of Exercise per Week: 3 days Minutes of Exercise per Session: 20 min Stress: Stress Concern Present (06/19/2024) Received from [facility] [employer] - Occupational Stress Questionnaire Feeling of Stress : Very much Social Connections: Unknown (06/19/2024) Received from [facility] Social Connection and Isolation Panel [NHANES] Frequency of Communication with Friends and Family: Once a week Attends Episcopal Services: Never Active Member of Clubs or Organizations: No Attends Club or Organization Meetings: Never Marital Status: Housing Instability: Low Risk (06/19/2024) Received from [facility] Housing Stability Vital Sign Unable to Pay for Housing in the Last Year: No Number of Times Moved in the Last Year: 0 Homeless in the Last Year: No Allergies Allergen Reactions No Known Drug Allergies Medication List Accurate as of August 21, 2024 2:01 PM. If you have any questions, ask your nurse or doctor. Medications Continued This Visit ANORO ELLIPTA 62.5-25 mcg/actuation blister with device Refills: 0 Dose: 1 puff Generic drug: umeclidinium-vilanteroL aspirin 81 mg Refills: 0 Dose: 81 mg atorvastatin 40 mg tablet Quantity: 30 tablet Refills: 6 Dose: 40 mg Signed by: KARMEN Toussaint 40 mg, oral, Daily Commonly known as: LIPITOR isosorbide mononitrate 60 mg 24 hr tablet Refills: 0 Dose: 60 mg Commonly known as: IMDUR metoprolol tartrate 25 mg tablet Quantity: 180 tablet Refills: 0 Dose: 25 mg Signed by: KARMEN Jesus 25 mg, oral, 2 times daily Commonly known as: LOPRESSOR tamsulosin 0.4 mg capsule Quantity: 90 capsule Refills: 1 Signed by: KARMEN Hendricks TAKE 1 CAPSULE BY MOUTH EVERY DAY IN THE EVENING Commonly known as: FLOMAX Review of Symptoms: Review of Systems HENT: Sinus pressure and drainage. Respiratory: Positive for cough. All other systems reviewed and are negative. ECO- Symptomatic; fully ambulatory Physical Exam: General: Well appearing, in no acute distress. Vitals: BP 143/63 Pulse 81 Temp 36.7 C (98.1 F) (Oral) Resp 18 Ht 175.3 cm (5' 9.02 ) Wt 111.1 kg (245 lb) SpO2 98% BMI 36.16 kg/m Body mass index is 36.16 kg/m . Eyes: No icterus, no conjuctival erythema ENT: Pharyngeal mucosa was moist without exudate and inflammation or ulcerations. Tongue was midline and appeared normal.Gums were unremarkable. Lymph nodes: No palpable adenopathy Neck: Supple. There were no masses, tenderness. Trachea was midline. Respiratory: Respirations were non-labored. Lungs were clear to auscultation. There was no dullnessto percussion. Cardiac: Regular rate and rhythm, S1 [...] of chronic microangiopathy. No territorial loss of heller- white differentiation. Mild cerebral volume loss with appropriate size and morphology of the ventricular system. No extra-axial fluid collections or shift of midline structures. Patent basal cisterns. No depressed or displaced calvarial fracture. Nonaggressive mucosal thickening maxillary and sphenoid sinusesas well as frontal sinuses and ethmoid air cells. IMPRESSION: 1. No acute intracranial abnormality.2. Senescent changes including cerebral volume loss and sequelae of chronic microangiopathy. 3. If there is sufficient clinical concern for acute ischemia or an occult abnormality, further evaluationwith brain MRI is recommended. All CT scans [...] fracture or dislocation bilateral femoral heads appear well- seated respective acetabula. Mild degenerative changes of the bilateral hips. Pubic symphysis is intact. Sacroiliac joints are symmetric. Softtissues appear unremarkable. IMPRESSION: No acute osseous abnormality [...] sagittal reconstructions were performed. All CT scans atthis facility use dose modulation, iterative reconstruction, and/or weight based dosing when appropr iate to reduce radiation dose to as low [...] dosing when appropriate to reduce radiation dose toas low as reasonably achievable. Findings: There is no acute vertebral deformity in the thoracic region. No displaced rib fracture is evident. Patient is status post sternotomy. A paraspinal mass in the right lower lobe measures 4.8 x 3.3 x 2.3 cm. This has cavitary component centrally and involvesthe adjacent pleura. There is centrilobular emphysematous change with no focal abnormality otherwise present in the lungs No mediastinal mass or adenopathy is evident. A right hepatic cysts, segment 8 appears stable measuring up to 6.8 cm. IMPRESSION: No posttraumatic abnormality within the thorax.Right lower lobe paraspinal mass suggestive of malignancy. [...] or any previous visit (from the past 2 weeks). 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 Repeat CT scan 07/2024 reviewed today, continue to have granulomatous changes emphysema no signs ofrecurrence. The patient has persistent kidney stone bladder stone. Plan to obtain another CT scan of the chest in [address] scan every 6 months for the 1st 3 years. Follow-up with me after the imaging test. Contact urologist regarding recurrent kidney stone and bladder stone. Cornelio Birmingham MD Please note that portions of this note were generated using voice recognition M*Modal dictation software. Although every effort was made to ensure the accuracy of this automated commercial technician, some errors in commercial technician may have occurred. CC: Patient Care Team: Ksenia Arzola APRN-REPACKER as PCP - General (Nurse Practitioner) Romi Novak MD as Referring Physician (Infectious Disease) Cornelio Birmingham MD as Consulting Physician (Oncology) Domingo Collado DO as Consulting Physician (Radiation Oncology) Davis Pimentel MD as Consulting Physician (Urology) Walt Jackson DO as Referring Physician (Cardiology) PCP:Ksenia Arzola Referring MD: Shaikh Elliott MD documented in this encounterNorthwestern [facility] CenterZinch[facility]-24-2024 Instructions* Patient Instructions* Cornelio Birmingham MD - 08/21/2024 1:[address] chest WITH contrast in 6 months. F/u after scan. [facility] Evaluation [facility]* Diagnosis Onset Date Resolution Status Admit Date Atypical mycobacterial disease acuteOctober 2023 8:22amDiastolic dysfunctionacuteOctober 2023 8:22amMild chronic obstructive pulmonary diseaseacuteOctober 2023 8:22am RhinitisacuteOctober 2023 8:22am [facility] Work Phone: [phone] 240-660510-02-2024 Miscellaneous Notes* Telephone Encounter - Heather Cornelius - 07/30/2024 11:15 AM EDT will call back to reschedule follow up with dr. birmingham after he gets labs and ct scan scheduled [facility] Telephone encounter Note* Telephone Encounter - Heather Cornelius - 07/30/2024 11:15 AM EDT will call back to reschedule follow up with dr. birmingham after he gets labs and ct scan scheduled [facility] History of Present illness Narrative* Ksenia Arzola, CHIP - 07/28/2024 4:47 PM EDTAssociated Problem(s): Low back pain potentially associated with radiculopathy Following closely with Dr. Mckeon; Second MRI ordered. MRI consistent with central and foraminal stenosis; Reviewed results with pt. Was seeing pain management in [place] for the back pain- was getting injections; stopped 3 months ago. Was not getting relief. States Pain has actually increased and is now radiating to both legs. Reports previously mentioned vague neurological symptoms have subsided. Numbness and tingling only are in BUE/BLE at this time. Declines Gabapentin for nerve pain. States he tried it for 2 weeks and did not like how he felt. Trialed Lyrica. Stopped due to dizziness. Off work per Neuro recommendation until 08/11; Next follow up aoppt with neuro on 08/11. * Ksenia Arzola NP - 07/28/2024 10:30 AM EDT Images from the original note were not included. Subjective Patient ID: Zaid Mello is a 63 y.o. male who presents for Follow-up (Low back pain potentially associated with radiculopathy/). HPI Following with Drr. Mckeon- Neurology; MRI lumbar spine ordered- having done 08/13; Reports consistent back and shoulder pain. Will continue off work until next follow-up with neurology on 08/11; Will see if [facility] can get imaging scheduled soioner. Advised pt to call Dr. Villar office to see iof imaging can be pushed sooner. Reports: Burning sensation in stomach after eating; Coughing Denies: Burning in throat Review of Systems Constitutional: Negative for activity change, appetite change, chills, diaphoresis, fatigue, fever and unexpected weight change. HENT: Negative for congestion, ear pain, rhinorrhea, sinus pressure, sinus pain, sneezing, sore throat, trouble swallowing and voice change. Eyes: Negative for visual disturbance. Respiratory: Negative for cough, chest tightness, shortness of breath and wheezing. Cardiovascular: Negative for chest pain, palpitations and leg swelling. Gastrointestinal: Negative for abdominal distention, abdominal pain, blood in stool, constipation, diarrhea and vomiting. Heartburn Genitourinary: Negative for decreased urine volume, dysuria, flank pain, frequency, hematuria and urgency. Musculoskeletal: Positive for arthralgias, back pain and myalgias. Negative for gait problem and joint swelling. Skin: Negative for rash. Neurological: Negative for dizziness, tremors, syncope, weakness, light- headedness and headaches. Psychiatric/Behavioral: Negative for decreased concentration and suicidal ideas. The patient is notnervous/anxious. Hematological: Does not bruise/bleed easily. Endocrine: Negative for cold intolerance, heat intolerance, polydipsia, polyphagia and polyuria. Objective Physical Exam Vitals reviewed. Constitutional: Appearance: Normal appearance. HENT: Head: Normocephalic and atraumatic. Right Ear: Tympanic membrane normal. Left Ear: Tympanic membrane normal. Nose: Nose normal. Mouth/Throat: Mouth: Mucous membranes are moist. Pharynx: Oropharynx is clear. Eyes: Pupils: Pupils are equal, round, and reactive to light. Cardiovascular: Rate and Rhythm: Normal rate and regular rhythm. Pulses: Normal pulses. Heart sounds: Normal heart sounds. Pulmonary: Effort: Pulmonary effort is normal. Breath sounds: Normal breath sounds. Abdominal: General: Abdomen is flat. Bowel sounds are normal. Palpations: Abdomen is soft. Musculoskeletal: General: Normal range of motion. Cervical back: Normal range of motion. Skin: General: Skin is warm and dry. Capillary Refill: Capillary refill takes less than 2 seconds. Neurological: General: No focal deficit present. Mental Status: He is alert and oriented to person, place, and time. Psychiatric: Mood and Affect: Mood normal. Behavior: Behavior normal. Assessment/Plan Problem List Items Addressed This Visit Low back pain potentially associated with radiculopathy Following closely with Dr. Mckeon; Second MRI ordered. MRI consistent with central and foraminal stenosis; Reviewed results with pt. Was seeing pain management in [place] for the back pain- was getting injections; stopped 3 months ago. Was not getting relief. States Pain has actually increased and is now radiating to both legs. Reports previously mentioned vague neurological symptoms have subsided. Numbness and tingling only are in BUE/BLE at this time. Declines Gabapentin for nerve pain. States he tried it for 2 weeks and did not like how he felt. Trialed Lyrica. Stopped due to dizziness. Off work per Neuro recommendation until 08/11; Next follow up aoppt with neuro on 08/11. Other Visit Diagnoses Heartburn - Primary Relevant Medications pantoprazole (Protonix) 40 MG EC tablet documented in this encounterFulton Medical Center- [id number] Instructions* Patient Instructions* Ksenia Arzola NP - 07/28/2024 10:[address] Mckeon's office today!!! Discuss MRI Scheduling and medications for neuropathy! documented in this [facility]09-19-2024 History of Present illness Narrative* DONAVAN Al - 07/17/2024 12:30 PM EDT Images from the original note were not included. Reason for Appointment: EMG Patient: Zaid Mello : 1960 EMG Computer: [employer] Referring Physician: Dr. Natty Mckeon EMG: BLE security sales manager: Toby Ventura RT(R) Office Location: [place] Reason for EMG: c/o numbness/tingling in bilateral legs & low back, low back pain that radiatesdown legs to bilateral thighs. Hx of DM. Taking ASA. Comments: Procedure was explained to the patient & female latin dancer who expressed understanding. Patient appeared to have tolerated the test well despite some discomfort due to the nature of the test. documented in this [facility]09-16-2024 History of Present illness Narrative* Natty Mckeon DO - 07/14/2024 10:15 AM EDT Images from the original note were not included. Chief complaint: Low back pain Subjective Zaid Mello, 63 y.o., male Zaid is here for a neurologic consult at the request of Ksenia Arzola IMPORT/EXPORT AGENT for lumbar spondylosis. He is accompanied by his . Patient states he has been having pain in his lower back. He describes this pain as constant and just always there he said he guesses he would describe it as a stabbing pain. This radiates down both legs and he states it is always painful in both legs. This also goes down to his feet. He reports numbness and tingling in both legs and feet. He states lately hehas also been having a pain in his left shoulder that goes down his left arm. He states the pain isworse when he is laying down. He states he can never get comfortable and this affects his sleep. Hestates he gets about 2-3 hours of good sleep at night. He states there is nothing that makes this better. He takes tylenol with no relief. He states he got shots at [facility]. He is unsure what this was at all but he was sure it did not help. Review of Systems Constitutional: Negative for appetite change, fatigue and fever. Respiratory: Negative for cough, shortness of breath and wheezing. Cardiovascular: Negative for chest pain, palpitations and leg swelling. Gastrointestinal: Negative for abdominal pain, constipation, diarrhea and nausea. Musculoskeletal: Positive for back pain. Negative for arthralgias, gait problem and myalgias. Neurological: Positive for numbness. Negative for dizziness, tremors and headaches. Past Medical History: Diagnosis Date BPH (benign prostatic hyperplasia) CAD (coronary artery disease) ([facility]) Chest pain 10/04/2023 Chronic anticoagulation 10/04/2023 Chronic bilateral low back pain with right-sided sciatica H/O heart artery stent 10/04/2023 Heart attack ([facility]) High cholesterol ([facility]) Hyperlipidemia ([facility]) Lumbar spondylolysis 10/04/2023 Obesity 10/04/2023 S/P triple vessel bypass 10/04/2023 Past Surgical History: Procedure Laterality Date OTHER SURGICAL HISTORY 2004 Triple Bypass - stents No family history on file. Social History Tobacco Use Smoking status: Former Current packs/day: 0.00 Average packs/day: 2.0 packs/day for 28.8 years (57.5 ttl pk-yrs) Types: Cigarettes Start date: 10/29/1976 Quit date: 08/02/2005 Years since quittin.9 Passive exposure: Past Smokeless tobacco: Never Substance Use Topics Alcohol use: Never Allergies: Patient has no known allergies. Vitals: 07/14/24 1005 BP: 138/78 Pulse: 69 SpO2: 97% Body mass index is 35.29 kg/m . weight: 239 lb Neurologic exam: Mental status: Awake, alert to person, place and time. Recent and remote memory are intact. Language is fluent without aphasia. Attention and concentration are normal. Fund of knowledge is appropriate for level of education. Cranial nerves: CN II: Visual acuity is normal. Visual morel full to confrontation. CN III, IV, : pupils equal round and reactive to light. Extraocular movements intact. No ptosis present. CN V: Facial sensation is normal. CN VII: Full and symmetric facial movement. CN VIII: Hearing is normal to finger rub bilaterally: CN IX and X: Palate elevates symmetrically. CN XI: Shoulder shrug is normal bilaterally. CN XII: Tongue is midline without atrophy or fasciculation. Motor: Strength is 5/5 In the bilateral upper extremities, 4-/ 5 in the right lower extremity and 4+/ 5 inthe left lower extremity Sensory: Sensation is intact to light touch throughout Four extremities. Reflexes: 1+ in the lower extremities. 2+in the upper extremities. Coordination: [id number] testing and rapid alternating movements are normal Gait: Normal Review and summary of old records: MRI of the lumbar spine on 06/10/2024: Moderate degenerative changes with central and foraminal stenosis. Area of soft tissue signal at L4-5 neural foramen with suggestion for postcontrast MRI imaging. Assessment/Plan Diagnoses and all orders for this visit: Degenerative disc disease, lumbar Lumbar spondylolysis It is my impression that the patient has lumbar degenerative disc disease with evidence of canal and foraminal narrowing throughout the lumbar spine. Specifically the imaging would suggest at L4/5 there is neural foraminal compromise on the right with need for follow up MRI imaging as detailed below. There is ligamentum flavum and osteophyte formation throughout the lumbar spine and certainly this could be causative for the patient's symptoms. The complaints sound radicular in nature with back pain radiating lower extremities. Plan: EMG of the bilateral lower extremities to assess for pathology as above and determine type and severity The patient is already established with pain management at [facility]. The patient understands that he needs to follow up with them for guidance on treatment and medication related options as well as injection options. Abnormal magnetic resonance imaging of lumbar spine MRI of the lumbar spine details a soft tissue signal abnormality near the neural foramen on the right at L4/5. Postcontrast MRI imaging is recommended for further evaluation by the radiologist. This will be important to rule out potentially life-threatening pathology such as malignant processes that could be debilitating or life-threatening if not correctly identified and treated. Plan: MRI of the lumbar spine with contrast. I have asked patient to get this done in [place] with 3 Michelle MRI scanning. I have also asked patient bring a disc of the without contrast MRI lumbar spine images over to the [facility] so that Dr. Burns and Radiology can review these. Pt has been fully educated on their diagnosis, lab results, treatment options, follow up plan, and return instructions documented in this encounterFulton Medical Center- [id number] History of Present illness Narrative* Ksenia Arzola NP - 06/26/2024 1:59 PM EDTAssociated Problem(s): Low back pain potentially associated with radiculopathy Referral sent to [facility]rology[facility] First appointment on 07/14; MRI consistent with central and foraminal stenosis; Reviewed results with pt. Was seeing pain management in [place] for the back pain- was getting injections; stopped 3 months ago. Was not getting relief. States Pain has actually increased and is now radiating to both legs. Reports previously mentioned vague neurological symptoms have subsided. Numbness and tingling only are in BUE/BLE at this time. Declines Gabapentin for nerve pain. States he tried it for 2 weeks and did not like how he hilario. Reports he took it to police department to dispose of remaining doses. Will trial Lyrica * Ksenia Arzola NP - 06/26/2024 10:00 AM EDT Images from the original note were not included. Subjective Patient ID: Zaid Mello is a 63 y.o. male who presents for Back Pain. HPI Chronic Back Pain: MRI done on 06/10/2024- indicative of Spinal Stenosis Referral sent to [facility]rology[facility] First appointment on 07/14; Was seeing pain management in [place] for the back pain- was getting injections; stopped 3 months ago. Was not getting relief. Pain has actually increased and is now radiating to both legs. Reports: intermittent numbness and tingling to legs/hands. Constant pain Denies: Loss of bowel/bladder Constant numbness Loss of sensation Loss of strength Loss of mobility Reports previously mentioned vague neurological symptoms have subsided. Numbness and tingling only are in BUE/BLE at this time. Declines Gabapentin for nerve pain. States he tried it for 2 weeks and did not like how he hilario. Reports he took it to police department to dispose of remaining doses. Will trial Lyrica Review of Systems Constitutional: Negative for activity change, appetite change, chills, diaphoresis, fatigue, fever and unexpected weight change. HENT: Negative for congestion, ear pain, rhinorrhea, sinus pressure, sinus pain, sneezing, sore throat, trouble swallowing and voice change. Eyes: Negative for visual disturbance. Respiratory: Negative for cough, chest tightness, shortness of breath and wheezing. Cardiovascular: Negative for chest pain, palpitations and leg swelling. Gastrointestinal: Negative for abdominal distention, abdominal pain, blood in stool, constipation, diarrhea and vomiting. Genitourinary: Negative for decreased urine volume, dysuria, flank pain, frequency, hematuria and urgency. Musculoskeletal: Positive for back pain and myalgias. Negative for arthralgias, gait problem and joint swelling. Skin: Negative for rash. Neurological: Positive for numbness. Negative for dizziness, tremors, syncope, weakness, light-headedness and headaches. Numbness/tingling to extremities. Psychiatric/Behavioral: Negative for decreased concentration and suicidal ideas. The patient is notnervous/anxious. Hematological: Does not bruise/bleed easily. Endocrine: Negative for cold intolerance, heat intolerance, polydipsia, polyphagia and polyuria. Objective Physical Exam Vitals reviewed. Constitutional: Appearance: Normal appearance. HENT: Head: Normocephalic and atraumatic. Right Ear: Tympanic membrane normal. Left Ear: Tympanic membrane normal. Nose: Nose normal. Mouth/Throat: Mouth: Mucous membranes are moist. Pharynx: Oropharynx is clear. Eyes: Pupils: Pupils are equal, round, and reactive to light. Cardiovascular: Rate and Rhythm: Normal rate and regular rhythm. Pulses: Normal pulses. Heart sounds: Normal heart sounds. Pulmonary: Effort: Pulmonary effort is normal. Breath sounds: Normal breath sounds. Abdominal: General: Abdomen is flat. Bowel sounds are normal. Palpations: Abdomen is soft. Musculoskeletal: Cervical back: Normal range of motion. Lumbar back: Decreased range of motion. Skin: General: Skin is warm and dry. Capillary Refill: Capillary refill takes less than 2 seconds. Neurological: General: No focal deficit present. Mental Status: He is alert and oriented to person, place, and time. Psychiatric: Mood and Affect: Mood normal. Behavior: Behavior normal. Assessment/Plan Problem List Items Addressed This Visit Low back pain potentially associated with radiculopathy - Primary Referral sent to Neurology-[facility] First appointment on 07/14; MRI consistent with central and foraminal stenosis; Reviewed results with pt. Was seeing pain management in [place] for the back pain- was getting injections; stopped 3 months ago. Was not getting relief. States Pain has actually increased and is now radiating to both legs. Reports previously mentioned vague neurological symptoms have subsided. Numbness and tingling only are in BUE/BLE at this time. Declines Gabapentin for nerve pain. States he tried it for 2 weeks and did not like how he hilario. Reports he took it to police department to dispose of remaining doses. Will trial Lyrica Relevant Medications pregabalin (Lyrica) 25 MG capsule Multiple neurological symptoms Relevant Medications pregabalin (Lyrica) 25 MG capsule Is requesting continued leave from work- was given by at last OV. Will continue until sees neurology documented in this encounterFulton Medical Center- [id number] Instructions* Patient Instructions* Ksenia Arzola NP - 06/26/2024 10:00 AM EDT Start Lyrica 25mg twice per day. Keep follow up appointment with Neurology. Sudden loss of bowel/bladder, sudden onset numbness on one side of body or to any extremity, confusion, severe pain GO TO ER!!! documented in this encounterFulton Medical Center- [id number] Miscellaneous Notes* Telephone Encounter - Betty Kim CMA - 03/25/2024 9:19 AM EDT PHONED PT IN REGARDS TO SCHEDULING AN APPT FOR REFILL AND PER PT IS CURRENTLY FOLLOWING WITH [facility],APPT IS NOT NEEDED WITH [facility] documented in this encounterCherrington Hospital05-28-2024 Telephone encounter Note* Telephone Encounter - Betty Kim CMA - 03/25/2024 9:19 AM EDT PHONED PT IN REGARDS TO SCHEDULING AN APPT FOR REFILL AND PER PT IS CURRENTLY FOLLOWING WITH [facility],APPT IS NOT NEEDED WITH [facility]05-23-[facility]24 Miscellaneous Notes* Telephone Encounter - Betty Kim CMA - 03/20/2024 9:21 AM EDT PHONED MIREILLE KELLOGG ON VM TO CONTACT OFFICE TO SCHEDULE APPT. documented in this encounterCherrington Hospital05-23-2024 Telephone encounter Note* Telephone Encounter - Betty Kim CMA - 03/20/2024 9:21 AM EDT PHONED PTMIREILLE ON VM TO CONTACT OFFICE TO SCHEDULE APPT. [facility]05-21-[facility] History of Present illness Narrative* Veena Casiano MD - 03/18/2024 11:00 AM EDT Images from the original note were not included. [address] [place] [address] [address] [facility] [id number] Patient: Zaid Mello Date of : 1960 Encounter Date: 03/18/2024 History of Present Illness: Chief Complaint: Follow up Cloudy urine and slight discomfort when urinating The patient is a 63 y.o. male, an established patient, and is here for follow- up. He has a history of lower urinary tract symptoms. Had been on tamsulosin 0.4 mg. This was increased to 0.8 mg. He wasdiagnosed with bladder stones and underwent a cystolitholapaxy October 2023. Patient reports that since that time he has been voiding much better. No more nocturia. PVR 126 cc. Had been started on finasteride but took this only for few months and stopped because he was having some groin discomfort which resolved after stopping the medication. He has an AUA symptom score of 3 with quality life score of 1. He had a positive urine infection in September 2023 prior to his cystolitholapaxy. Follow-up urine culture October 2023 was negative but he developed recurrent symptomatic infection demonstrating enter faecalis. He was treated with ampicillin and then switched to a secondary antibiotic for a total of 7 days. He had resolution of symptoms but they recurred a few days after stopping. He was re-treated with an extension of the antibiotic for another 7 days. He had a recurrent UTI with culture showing Enterococcus March 11, 2024. Got has been given amoxicillin for this. Symptomatically much better Summary of old records: Urinalysis today: No results for input(s): EXTPOCURCO , EXTPOCURCH , EXTPOCAPP , EXTPOCURBS , EXTPOCURBIL , EXTPOCUKET , EXTPOCUSPG , EXTPOCUHGB , EXTPOCUPRO , EXTPOCUURO , EXTPOCULEU , EXTPOCUNIT , EXTPOCUWBC , EXTPOCUBLD , EXTPOCURBC , EXTPOCUCRY , EXTPOCUBAC , EXTPOCUTREP , EXTPOCUPH , EXTPOCUL EE in the last 72 hours. Last BUN and creatinine: Lab Results Component Value Date BUN 14 10/24/2023 Lab Results Component Value Date CREATININE 0.91 10/24/2023 Last PSA: Lab Results Component Value Date PSA 1.46 09/05/2023 PSA 2.06 06/01/2022 PSA 1.36 07/30/2020 Lab Results Component Value Date PROSTATICSP 4.47 (H) 07/20/2023 Additional Lab/Culture results: Imaging Reviewed during this Office Visit: None (Results were independently reviewed by physician and radiology report verified) Past Medical, Family, and Social History Update: The following portions of the patient's history were reviewed and updated as appropriate: allergies, current medications, past family history, past medical history, past social history, past surgicalhistory and problem list. Past Medical History: Diagnosis Date Anesthesia emergence dysphoria BPH (benign prostatic hypertrophy) CAD (coronary artery disease) Cardiovascular disease Cataract Chest pain COPD (chronic obstructive pulmonary disease) ([facility]) COPD, moderate ([facility]) 04/09/2017 Emphysema of lung ([facility]) Hyperlipemia Hypertension Injury of back Lung cancer ([facility]) right lower lobe thoracotomy 11/2022 Myocardial infarction ([facility]) Right lower lobe pulmonary nodule Seizures ([facility]) had from ages [age], none since age 27 Shortness of breath Visual impairment Past Surgical History: Procedure Laterality Date BRONCHOSCOPY WITH FLUORO N/A 05/24/2017 Performed by Maritza Jang DO at [facility] 03/2022 stent placed CORONARY ARTERY BYPASS GRAFT 01/16/2006 Triple DAVINCI THORACOTOMY ( RIGHT LOWER LOBE WEDGE RESECTION) , RIGHT LOBECTOMY,MEDIASTINAL LYMPH NODE DISECTION LYSIS OF PLEURAL ADHESIONS N/A 11/29/2022 Performed by Walt Barragan MD at [facility] LASER CYSTOSCOPY LITHOLAPAXY N/A 11/05/2023 Performed by Davis Pimentel MD at [facility] LIPOMA RESECTION PHACO KELMAN I IMPLANT INTRAOCULAR LENS Right 02/28/2018 Performed by Lashay Bui MD at [facility] PHACO KELMAN I IMPLANT INTRAOCULAR LENS Left 12/27/2017 Performed by Lashay Bui MD at [facility] SKIN BIOPSY excision of lypoma Family History Problem Relation Age of Onset Diabetes Father Heart disease Father Cancer Sister Stroke Maternal Grandmother No Known Problems Mother Current Outpatient Medications Medication Sig Dispense Refill amoxicillin (AMOXIL) 500 mg capsule Take 1 capsule (500 mg total) by mouth 3 (three) times a day for 7 days. 21 capsule 0 aspirin 81 mg Take 1 tablet (81 [...] DAY IN THE EVENING 90 capsule 1 tamsulosin (FLOMAX) 0.4 mg capsule TAKE 1 CAPSULE (0.4 MG TOTAL) BY MOUTH IN THE MORNING AND AT BEDTIME FOR 180 DAYS. 180 capsule 1 No current facility-administered medications for this visit. (All medications reviewed and updated by provider since last office visit or hospitalization) Allergies: No known drug allergies Tobacco History: Social History Tobacco Use Smoking Status Former Current packs/day: 0.00 Types: Cigarettes Quit date: 05/24/2005 Years since quittin.8 Smokeless Tobacco Never (If patient a smoker, smoking cessation counseling offered) Social History: Social History Substance and Sexual Activity Alcohol Use No Review of Systems: General: Negative for chills and fever. Cardiovascular: Positive for shortness of breath Gastrointestinal: Negative for constipation, diarrhea, nausea, and vomitting. -per HPI Physical Exam: BP 118/75 (BP Site: Left Arm, BP Postition: Sitting) Pulse 60 Ht 175.3 cm (5' 9 ) Wt 99.8 kg (220 lb) BMI 32.49 kg/m Assessment and Plan: Zaid was seen today for follow-up. Diagnoses and all orders for this visit: Cloudy urine - Measure post void residual Urinary retention Benign prostatic hyperplasia with lower urinary tract symptoms, symptom details unspecified Recurrent UTI Problem List Genitourinary Benign prostatic hyperplasia with lower urinary tract symptoms Overview ==== 12/24/2023 ==== still with significant lower urinary tract symptoms despite cystolitholapaxy. Has bladder outlet obstruction based on previous evaluation. We discussed transurethral section of prostate. Will also add finasteride. Should he derive some benefit with the finasteride he can certainly postpone TURP otherwise will proceed with TURP ====11/28/23====s/p cystolitholapaxy 11/05/23. Recent dysuria, hematuria, and difficulty voiding. Willstart Levaquin and watch for final culture results. Cath inserted today. Will void trial early nextweek ====09/05/23==== PVR 425. I told him to call if he wants to learn ISC, otherwise we will recheck in the short-term after increasing Flomax to 0.4 mg b.i.d.. 12/21/20: Lower urinary tract symptoms currently well controlled with tamsulosin. Refill given. Recheck 1 year with PSA 03/18/24: doing well using tamsulosin 0.8 mg. Getting recurrent UTIs with E coli and subsequently Enterococcus. Plan to have him finish his course of 7 days. If recurrent symptoms soon extend course of antibiotic. Recurrent UTI Follow-up: Veena Casiano MD This note was created with the assistance of a speech recognition program. While intending to generate a timely document that accurately reflects the content of the visit, no guarantee can be provided that every grammatical or spelling mistake has been or will be identified or corrected. Thank you for your understanding. documented in this encounterCherrington Hospital05-06-2024 Miscellaneous Notes* Telephone Encounter - Ksenia Boykin - 03/03/2024 8:50 AM EDT ERROR. documented in this encounterCherrington Hospital05-06-2024 Telephone encounter Note* Telephone Encounter - Ksenia Boykin - 03/03/2024 8:50 AM EDT ERROR. [facility]04-10-2024 Miscellaneous Notes* Telephone Encounter - Odilon De Leon [facility] - 02/06/2024 10:13 AM EDT Patient's called in stating Zaid will be giving a Urine Sample at [facility] today as he believes he has another infection. Patient's just mentioned he has some discomfort while urinating & his urine is slightly cloudy. Dr. Pimentel - Patient's also states he would like to start seeing Dr. Casiano. When asked the reasoning she stated He [Zaid] feels as if he had no major Urological Issues until his Cystoscopy on 11/05/2023. He would like to follow up care with Dr. Casiano . Dr. Casiano - Are you okay with taking over patient? *Since patient's next procedure was cancelled due to patient's own doing, how should we proceed with patient's follow up? * Telephone Encounter - Veena Casiano MD - 02/06/2024 10:13 AM EDT Fine with me documented in this encounterLakeHealth TriPoint Medical CenterXuehuile [id number] Telephone encounter Note* Telephone Encounter - Odilon De Leon CMA - 02/06/2024 10:13 AM EDT Patient's called in stating Zaid will be giving a Urine Sample at [facility] today as he believes he has another infection. Patient's just mentioned he has some discomfort while urinating & his urine is slightly cloudy. Dr. Pimentel - Patient's also states he would like to start seeing Dr. Casiano. When asked the reasoning she stated He [Zaid] feels as if he had no major Urological Issues until his Cystoscopy on 11/05/2023. He would like to follow up care with Dr. Casiano . Dr. Casiano - Are you okay with taking over patient? *Since patient's next procedure was cancelled due to patient's own doing, how should we proceed with patient's follow up? [facility]10[facility] Telephone encounter Note* Telephone Encounter - Veena Casiano MD - 02/06/2024 10:13 AM EDT Fine with me [facility] Phone: [phone] 263-106003-08-2024 History of Present illness Narrative* Christelle Arriaga RN - 01/04/2024 9:20 AM EST Patient is here for follow up with Dr. Birmingham for lung cancer. CT chest/a/p w contrast 06/2024 F/u 07/2024, CBC, CMP. Patient given calendar, verbalized understanding of future appointments. documented in this encounterCherrington Hospital03-08-2024 History of Present illness Narrative* Cornelio Birmingham MD - 01/04/2024 8:45 AM EST Images from the original note were not included. [facility] 01/04/24 Zaid Mello is a 63 y.o. [...] mediastinal mass or adenopathy is evident. A righthepatic cysts, segment 8 appears stable measuring up [...] six months, occasional shortness of breath during exertion.No significant cough or shortness of breath. No headaches or vision change. Weight has been stable.No significant pain along surgical incisions. He is [...] 05/24/2017 Performed by Maritza Jang DO at [facility] 03/2022 stent placed CORONARY ARTERY BYPASS GRAFT 01/16/2006 Triple DAVINCI THORACOTOMY ( RIGHT LOWER LOBE WEDGE RESECTION) , RIGHT LOBECTOMY,MEDIASTINAL LYMPH NODE DISECTION LYSIS OF PLEURAL ADHESIONS N/A 11/29/2022 Performed by Walt Barragan MD at [facility] LASER CYSTOSCOPY LITHOLAPAXY N/A 11/05/2023 Performed by Davis Pimentel MD at [facility] LIPOMA RESECTION PHACO KELMAN I IMPLANT INTRAOCULAR LENS Right 02/28/2018 Performed by Lashay Bui MD at [facility] PHACO KELMAN I IMPLANT INTRAOCULAR LENS Left 12/27/2017 Performed by Lashay Bui MD at [facility] SKIN BIOPSY excision of lypoma Family History [...] 6 Dose: 5 mg Signed by: Dr. Pimentel 5 mg, oral, Daily Commonly known as: [...] as other medications prescribed for you. Read thedirections carefully, and ask your doctor or other [...] were clear to auscultation. There was no dullnessto percussion. Cardiac: Regular rate and rhythm, S1 [...] of chronic microangiopathy. No territorial loss of heller- white differentiation. Mild cerebral volume loss with appropriate size and morphology of the ventricular system. No extra-axial fluid collections or shift of midline structures. Patent basal cisterns. No depressed or displaced calvarial fracture. Nonaggressive mucosal thickening maxillary and sphenoid sinusesas well as frontal sinuses and ethmoid air cells. IMPRESSION: 1. No acute intracranial abnormality.2. Senescent changes including cerebral volume loss and sequelae of chronic microangiopathy. 3. If there is sufficient clinical concern for acute ischemia or an occult abnormality, further evaluationwith brain MRI is recommended. All CT scans [...] fracture or dislocation bilateral femoral heads appear well- seated respective acetabula. Mild degenerative changes of the bilateral hips. Pubic symphysis is intact. Sacroiliac joints are symmetric. Softtissues appear unremarkable. IMPRESSION: No acute osseous abnormality [...] sagittal reconstructions were performed. All CT scans atthis facility use dose modulation, iterative reconstruction, and/or weight based dosing when appropr iate to reduce radiation dose to as low [...] dosing when appropriate to reduce radiation dose toas low as reasonably achievable. Findings: There is no acute vertebral deformity in the thoracic region. No displaced rib fracture is evident. Patient is status post sternotomy. A paraspinal mass in the right lower lobe measures 4.8 x 3.3 x 2.3 cm. This has cavitary component centrally and involvesthe adjacent pleura. There is centrilobular emphysematous change with no focal abnormality otherwise present in the lungs No mediastinal mass or adenopathy is evident. A right hepatic cysts, segment 8 appears stable measuring up to 6.8 cm. IMPRESSION: No posttraumatic abnormality within the thorax.Right lower lobe paraspinal mass suggestive of malignancy. Further evaluation with PET/CT or soft tissue diagnosis recommended. I HAVE REQUESTED THAT THE RADIOLOGY DEPARTMENT STAFF CONTACT THE CLINICAL SERVICE REGARDING THIS REPORT. 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 CC: Patient Care Team: Shaikh Lexi MD as PCP - General (Internal Medicine) Romi Novak MD as Referring Physician (Infectious Diseases) Cornelio Birmingham MD as Consulting Physician (Oncology) Domingo Collado DO as Consulting Physician (Radiation Oncology) Davis Pimentel MD as Consulting Physician (Urology) Walt Jackson DO as Referring Physician (Cardiology) PCP:SHAIKH LEXI Referring MD: Shaikh Elliott MD documented in this encounterCherrington Hospital03-08-2024 Instructions* Patient Instructions* Cornelio Birmingham MD - 01/04/2024 8:[address] chest/a/p w contrast 06/2024 F/u 07/2024, CBC, CMP. documented in this encounterCherrington Hospital02-26-2024 Miscellaneous Notes* Telephone Encounter - Davis Pimentel MD - 12/24/2023 1:12 PM EST bipolar transurethral section of prostate general anesthesia. Overnight admission. [place]. Setup with Dr. Casiano can see the next day. Diagnosis bladder outlet obstruction failed medical management. documented in this encounterCherrington Hospital02-26-2024 Telephone encounter Note* Telephone Encounter - Davis Pimentel MD - 12/24/2023 1:12 PM EST bipolar transurethral section of prostate general anesthesia. Overnight admission. [place]. Setup with Dr. Casiano can see the next day. Diagnosis bladder outlet obstruction failed medical management. [facility]02-26-2024 Evaluation + Plan note* Assessment & Plan Note - Davis Pimentel MD - 12/24/2023 1:11 PM ESTAssociated Problem(s): Benign prostatic hyperplasia with lower urinary tract symptoms Has not been sexually active for many years. Does have baseline ED. No unclear whether not he has any antegrade ejaculation. We discussed potential highly probable chance of retrograde ejaculation. +/-whether not it would affect his erections. Urinary incontinence as well. [facility]02-26-2024 Miscellaneous Notes* Assessment & Plan Note - Davis Pimentel MD - 12/24/2023 1:11 PM ESTAssociated Problem(s): Benign prostatic hyperplasia with lower urinary tract symptoms Has not been sexually active for many years. Does have baseline ED. No unclear whether not he has any antegrade ejaculation. We discussed potential highly probable chance of retrograde ejaculation. +/-whether not it would affect his erections. Urinary incontinence as well. documented in this encounterCherrington Hospital02-26-2024 History of Present illness Narrative* Davis Pimentel MD - 12/24/2023 12:45 PM EST Images from the original note were not included. [address] [place] [id number] Patient: Zaid Mello Date of : 1960 Encounter Date: 12/24/2023 History of Present Illness: Chief Complaint: Bladder outlet obstruction The patient is a 63 y.o. male, an established patient, and is here for see history bladder outlet obstruction history bladder stones. Had cysto litholapaxy. Postop retention. This has resolved he would some hematuria as well. No longer any hematuria. Still has baseline lower urinary tract symptomato logy secondary to his trilobar hypertrophy. This is not changed since the stones were treated.. Summary of old records: Urinalysis today: No results for input(s): EXTPOCURCO , EXTPOCURCH , EXTPOCAPP , EXTPOCURBS , EXTPOCURBIL , EXTPOCUKET , EXTPOCUSPG , EXTPOCUHGB , EXTPOCUPRO , EXTPOCUURO , EXTPOCULEU , EXTPOCUNIT , EXTPOCUWBC , EXTPOCUBLD , EXTPOCURBC , EXTPOCUCRY , EXTPOCUBAC , EXTPOCUTREP , EXTPOCUPH , EXTPOCUL EE in the last 72 hours. Last BUN and creatinine: Lab Results Component [...] past medical history, past social history, past surgicalhistory and problem list. Past Medical History: Diagnosis Date Anesthesia emergence dysphoria BPH (benign prostatic hypertrophy) CAD (coronary artery disease) Cardiovascular disease Cataract Chest pain COPD (chronic obstructive pulmonary disease) ([facility]) COPD, moderate ([facility]) 04/09/2017 Emphysema of lung ([facility]) Hyperlipemia Hypertension Injury of back Lung cancer ([facility]) right lower lobe thoracotomy 11/2022 Myocardial infarction ([facility]) Right lower lobe pulmonary nodule Seizures ([facility]) had from ages [age], none since age 27 Shortness of breath Visual impairment Past Surgical History: Procedure Laterality Date BRONCHOSCOPY WITH FLUORO N/A 05/24/2017 Performed by Maritza Jang DO at [facility] 03/2022 stent placed CORONARY ARTERY BYPASS GRAFT 01/16/2006 Triple DAVINCI THORACOTOMY ( RIGHT LOWER LOBE WEDGE RESECTION) , RIGHT LOBECTOMY,MEDIASTINAL LYMPH NODE DISECTION LYSIS OF PLEURAL ADHESIONS N/A 11/29/2022 Performed by Walt Barragan MD at [facility] LASER CYSTOSCOPY LITHOLAPAXY N/A 11/05/2023 Performed by Davis Pimentel MD at [facility] LIPOMA RESECTION PHACO KELMAN I IMPLANT INTRAOCULAR LENS Right 02/28/2018 Performed by Lashay Bui MD at [facility] PHACO KELMAN I IMPLANT INTRAOCULAR LENS Left 12/27/2017 Performed by Lashay Bui MD at [facility] SKIN BIOPSY excision of lypoma Family History [...] total) by mouth daily. 30 tablet 6 clopidogreL (PLAVIX) 75 mg tablet Take 1 tablet (75 mg total) by mouth in the morning. (Patient nottaking: Reported on 11/28/2023) finasteride (PROSCAR) 5 mg tablet Take 1 tablet (5 mg total) by mouth in the morning. 30 tablet 6 isosorbide mononitrate (IMDUR) 60 [...] bedtime for 180 days. 60 capsule 5 No current facility-administered medications for this visit. [...] General: Negative for chills and fever. Cardiovascular: no chest pains. Patient does have some baseline shortness breath secondary to pulmonary lobectomy in the past Gastrointestinal: Negative for constipation, diarrhea, nausea, and vomitting. -per HPI Physical Exam: There were no vitals taken for this visit. General Alert., Cooperative. Not in acute distress. Non-toxic. Orientation - Oriented X3. Head and Neck Normocephalic, atraumatic with no lesions. No abnormal movements. Trachea - midline. Integumentary Normal coloration of skin. Skin Moisture - normal skin moisture. Chest and Lung Exam Quiet, even and easy respiratory effort with no use of accessory muscles. Neurologic NON-focal Assessment and Plan: Diagnoses and all orders for this visit: Benign prostatic hyperplasia with lower urinary tract symptoms, symptom details unspecified Other orders - finasteride (PROSCAR) 5 mg tablet; Take 1 tablet (5 mg total) by mouth in the morning. Problem List High Benign prostatic hyperplasia with lower urinary tract symptoms - Primary Overview ==== 12/24/2023 ==== still with significant lower urinary tract symptoms despite cystolitholapaxy. Has bladder outlet obstruction based on previous evaluation. We discussed transurethral section of prostate. Will also add finasteride. Should he derive some benefit with the finasteride he can certainly postpone TURP otherwise will proceed with TURP ====11/28/23====s/p cystolitholapaxy 11/05/23. Recent dysuria, hematuria, and difficulty voiding. Willstart Levaquin and watch for final culture results. Cath inserted today. Will void trial early nextweek ====09/05/23==== PVR 425. I told him to call if he wants to learn ISC, otherwise we will recheck in the short-term after increasing Flomax to 0.4 mg b.i.d.. 12/21/20: Lower urinary tract symptoms currently well controlled with tamsulosin. Refill given. Recheck 1 year with PSA Current Assessment & Plan Has not been sexually active for many years. Does have baseline ED. No unclear whether not he has any antegrade ejaculation. We discussed potential highly probable chance of retrograde ejaculation. +/-whether not it would affect his erections. Urinary incontinence as well. Follow-up: Davis Pimentel MD Prescription drug management performed during today's office visit Minor surgical procedure with identified risk factors CV disease. This note was created with the assistance of a speech recognition program. While intending to generate a timely document that accurately reflects the content of the visit, no guarantee can be provided that every grammatical or spelling mistake has been or will be identified or corrected. Thank you for your understanding. documented in this encounterCher[facility] Hospital02-06-[facility]24 History of Present illness Narrative* Esperanza Maldonado LPN - 12/04/2023 9:00 AM EST Patient presents for fill and pull per Provider-Peggy Green PA-C . Pt. States that He hasn't had any more blood in his urine, it has been clear yellow urine all weekend. He has been drinking nothing but water all weekend to help. Explained procedure to pt and he agrees to proceed. Instilled approx 100 cc's of sterile water through covarrubias catheter. Pt felt strong urge to urinate. Balloon deflated and 16 fr coude covarrubias removed without difficulty. Pt was able to urinate 100 cc's. Gave pt instruction sheet and informed pt to call if any concerns. Pt tolerated procedure well. Esperanza Maldonado LPN Ordering Provider: Peggy Green PA-C Supervising Provider: MD Era documented in this encounterCherrington Hospital02-02-2024 History of Present illness Narrative* Aziza Lynch APRN-REPACKER - 11/30/2023 1:00 PM EST Images from the original note were not included. [address] [facility] [id number] Patient: Zaid Mello Date of : 1960 [...] hematuria yesterday. Today, his urine is significantly moreclear. Patient did stop Plavix 2 days ago [...] in ER. Summary of old records:Notes from Peggy Green PA-C 11/28/2023 The patient is a [...] past medical history, past social history, past surgicalhistory and problem list. Past Medical History: Diagnosis Date Anesthesia emergence dysphoria BPH (benign prostatic hypertrophy) CAD (coronary artery disease) Cardiovascular disease Cataract Chest pain COPD (chronic obstructive pulmonary disease) ([facility]) COPD, moderate ([facility]) 04/09/2017 Emphysema of lung ([facility]) Hyperlipemia Hypertension Injury of back Lung cancer ([facility]) right lower lobe thoracotomy 11/2022 Myocardial infarction ([facility]) Right lower lobe pulmonary nodule Seizures ([facility]) had from ages [age], none since age 27 Shortness of breath Visual impairment Past Surgical History: Procedure Laterality Date BRONCHOSCOPY WITH FLUORO N/A 05/24/2017 Performed by Maritza Jang DO at [facility] 03/2022 stent placed CORONARY ARTERY BYPASS GRAFT 01/16/2006 Triple DAVINCI THORACOTOMY ( RIGHT LOWER LOBE WEDGE RESECTION) , RIGHT LOBECTOMY,MEDIASTINAL LYMPH NODE DISECTION LYSIS OF PLEURAL ADHESIONS N/A 11/29/2022 Performed by Walt Barragan MD at [facility] LITHOLAPAXY N/A 11/05/2023 Performed by Davis Pimentel MD at [facility] LIPOMA RESECTION PHACO KELMAN I IMPLANT INTRAOCULAR LENS Right 02/28/2018 Performed by Lashay Bui MD at [facility] PHACO KELMAN I IMPLANT INTRAOCULAR LENS Left 12/27/2017 Performed by Lashay Bui MD at [facility] SKIN BIOPSY excision of lypoma Family History [...] total) by mouth in the morning. (Patient nottaking: Reported on 11/28/2023) levoFLOXacin (LEVAQUIN) 500 mg [...] KARMEN Hendricks 11/30/23 1350 documented in this encounterCherrington Hospital01-31-2024 Evaluation + Plan note* Assessment & Plan Note - ALNOZO Johnson - 11/28/2023 5:24 PM EST Associated Problem(s): Benign prostatic hyperplasia with lower urinary tract symptoms He has a follow-up with Dr. Pimentel in a few weeks. [facility] Miscellaneous Notes* Assessment & Plan Note - ALONZO Johnson - 11/28/2023 5:24 PM ESTAssociated Problem(s): Benign prostatic hyperplasia with lower urinary tract symptoms He has a follow-up with Dr. Pimentel in a few weeks. documented in this encounterCherrington Hospital01-31-2024 History of Present illness Narrative* ALONZO Johnson - 11/28/2023 4:00 PM EST Images from the original note were not included. [address] [place] [address] [address] [facility] [address] [facility] [address] Patient: Zaid Mello Date of : 1960 [...] past medical history, past social history, past surgicalhistory and problem list. Past Medical History: Diagnosis Date Anesthesia emergence dysphoria BPH (benign prostatic hypertrophy) CAD (coronary artery disease) Cardiovascular disease Cataract Chest pain COPD (chronic obstructive pulmonary disease) ([facility]) COPD, moderate ([facility]) 04/09/2017 Emphysema of lung ([facility]) Hyperlipemia Hypertension Injury of back Lung cancer ([facility]) right lower lobe thoracotomy 11/2022 Myocardial infarction ([facility]) Right lower lobe pulmonary nodule Seizures ([facility]) had from ages [age], none since age 27 Shortness of breath Visual impairment Past Surgical History: Procedure Laterality Date BRONCHOSCOPY WITH FLUORO N/A 05/24/2017 Performed by Maritza Jang DO at [facility] 03/2022 stent placed CORONARY ARTERY BYPASS GRAFT 01/16/2006 Triple DAVINCI THORACOTOMY ( RIGHT LOWER LOBE WEDGE RESECTION) , RIGHT LOBECTOMY,MEDIASTINAL LYMPH NODE DISECTION LYSIS OF PLEURAL ADHESIONS N/A 11/29/2022 Performed by Walt Barragan MD at [facility] LASER CYSTOSCOPY LITHOLAPAXY N/A 11/05/2023 Performed by Davis Pimentel MD at [facility] LIPOMA RESECTION PHACO KELMAN I IMPLANT INTRAOCULAR LENS Right 02/28/2018 Performed by Lashay Bui MD at [facility] PHACO KELMAN I IMPLANT INTRAOCULAR LENS Left 12/27/2017 Performed by Lashay Bui MD at [facility] SKIN BIOPSY excision of lypoma Family History [...] total) by mouth in the morning. (Patient nottaking: Reported on 11/28/2023) levoFLOXacin (LEVAQUIN) 500 mg [...] total) by mouth in the morning for 7days. Problem List Genitourinary Benign prostatic hyperplasia with lower urinary tract symptoms Overview ====11/28/23====s/p cystolitholapaxy 11/05/23. Recent dysuria, hematuria, and difficulty voiding. Willstart Levaquin and watch for final culture results. Cath inserted today. Will void trial early nextweek ====09/05/23==== PVR 425. I told him to call if he wants to learn ISC, otherwise we will recheck in the short-term after increasing Flomax to 0.4 mg b.i.d.. 12/21/20: Lower urinary tract symptoms currently well controlled with tamsulosin. Refill given. Recheck 1 year with PSA Current Assessment & Plan He has a follow-up with Dr. Pimentel in a few weeks. Bladder stones - [...] for your understanding. ALONZO Johnson 11/28/23 1726 * Esperanza Maldonado LPN - 11/28/2023 4:00 PM EST After Patient had his appointment with Peggy Green PA-C, she asked this nurse to [...] a separate cylinder. The irrigated NS was clearwith no green or brown coloration to it. This nurse did inform Peggy Green PA-C of the results of the irrigation and she did speak with the Patient and his again at this time. Patient did agr ee to keeping the covarrubias catheter in until he got some antibiotics and the urine culture came back. A leg bag was connected to the covarrubias catheter. Patient and his were taught how to empty the catheter bag, when to empty it, and how to change the night bag onto the catheter at . Per Peggy Green PA-C , Patient and his were [...] removal and follow up. documented in this encounterCherrington Hospital01-24-2024 Miscellaneous Notes* Telephone Encounter - Odilon De Leon CMA - 11/21/2023 9:05 AM EST Patient called in stating he is still urinating blood clots as well as having blood in his urine. 'Patient would like to know if this was normal weeks after the procedure documented in this encounterCherrington Hospital01-24-2024 Telephone encounter Note* Telephone Encounter - Odilon De Leon CMA - 11/21/2023 9:05 AM EST Patient called in stating he is still urinating blood clots as well as having blood in his urine. 'Patient would like to know if this was normal weeks after the procedure [facility] History of Present illness Narrative* Davis Pimentel MD - 11/05/2023 9:19 AM EST error documented in this encounterCherrington Hospital01-08-2024 Miscellaneous Notes* Telephone Encounter - Davis Pimentel MD - 11/05/2023 9:19 AM EST Have patient return the office in [place] about 4 weeks documented in this encounterCherrington Hospital01-08-2024 Telephone encounter Note* Telephone Encounter - Davis Pimentel MD - 11/05/2023 9:19 AM EST Have patient return the office in [place] about 4 weeks [facility]12-[facility] Instructions* Patient Instructions* Alejandrina Mendoza RN - 10/24/2023 10:30 AM EST Preoperative Education Checklist- General Surgery date: 11/05/23 Surgery time: 8a Arrival time: 610a 1. Bring a photo ID and your insurance card with you the day of surgery. You will check in at the main lobby of the [facility]- registration desk is straight ahead as soon as you walk in. Tell them you are here for surgery. 2. If you have a Living Will/Durable Power of Date Pitter for Health Care that is not on [...] after you have bathed. 5. NO nail kiswahili/acrylic on at least one finger. If you are having a hand, wrist or foot surgery then all nail kiswahili and artificial/acrylic nails must be removed from [...] least 8 hours and marijuana for 24 hoursprior to arrival for your surgery. 16. If [...] please call the Preadmission Testing office at [phone], Mon.-Fri. 7 a.m.-3 p.m. 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) Jul,hronic obstructive pulmonary disease, unspecified COPD type (ICD-10 - J44.9) Jul,Non-small cell lung cancer, unspecified laterality (ICD-10 - C34.90) [employer] Other 09-30-2022 Procedure [facility]09-30-2022 Procedure [facility]09-30-2022 Progress note Author Jaswinder Flores [facility] July 28, 2022 10:37amNote Date/TimeSeptember 2021 10:[address] [place], [place] [id number] Hospitalist Progress Note Signed Patient: Zaid Mello MR#: [id number] : 1960 Acct:[id number] Age/Sex: 61 / M Adm Date: 2 Loc: 3T Room: [address] [place] [address] Type: ADM INOo Attending Dr: Jaswinder Flores MD Copies to: ~ Date of Service: 07/28/2022 Subjective Subjective Narrative: Patient was seen and examined at bedside. Remained hemodynamically stable overnight. No chest pain reported overnight. Troponin levels down trended. Patient seems comfortable this morning denies any chest pain but still has occasional tingling in his left arm which is similar to his symptom when hehad previous cath. Maintained n.p.o. past midnight for [...] Insuln.Pen SUBCUT 07/27/23 11:59 Not Given TID.WM.[facility] Protocol Isosorbide Mononitrate 30 mg 07/27/22 09:00 [...] <Electronically signed by Jaswinder Flores MD> 07/28/[address] [place] [address] Work Phone: 1(718) 974-182409-29-2022 Consult note Author Norm Jackson [facility] July 27, 2022 5:13pmNote Date/TimeSept2021 5:03pm[place] [address] Cardiology Consult Note Signed Patient: Zaid Mello MR#: [id number] : 1960 Acct:[id number] Age/Sex: 61 / M Adm Date: 2 Loc: Room: [address] [place] [address] Type: ADM INOo Attending Dr: Jaswinder Flores MD Copies to: MD Norm Srinivasan MD [place], DO~ Cardiology HPI History of Present Illness Consult Date: 07/27/22 Reason for Consult: Non-ST elevation MS HPI: Mr. Mello is a 61 year old male seen in interventional cardiology consultationat request of the hospitalist after patient is transferred from [facility] ER withnew onset chest discomfort syndrome initial [...] March 2021 for acute coronary event, has maintaineddual antiplatelet therapy since that time with brief interruptions for tooth extractions recently. Past medical history is noted for remote tobacco use, COPD, ASHD with prior CABG, history of inferolateral wall myocardial infarction in March 2021 with revascularization of the vein graft to the RCA diabetes mellitus, mild obesity, hyperlipidemia Impression/recommendations: Acute non-ST elevation MS, concern for subacute stent thrombosis due torecent antiplatelet therapy withdrawal for teeth extraction. SHASHI risk score is 5-7 consistent withhigh risk. Risk benefits alternatives and informed decision-making [...] sublingual Q5M PRN chest pain 30 days #25tabs 04/29/21 [Rx Confirmed 07/26/22] ticagrelor 90 mg [...] x10E3/uL Lymph # (Auto) 1.3 (1.00-4.8) x10E3/uL Griggs # (Auto) 0.6 (0.0-0.8) x10E3/uL Eos # [...] Non-ST elevation (NSTEMI) myocardial infarction Documented By: Norm Jackson DO 07/27/221700 Signed By: <Electronically signed by Norm Jackson DO> 07/27/221712 [facility] Work Phone: 1(481) 591-193609-29-2022 Progress note Author Jaswinder Flores [facility] July 27, 2022 11:27amNote Date/TimeSeptember 2021 11:21[place] [address] Hospitalist Progress Note Signed Patient: Zaid Mello MR#: [id number] : 1960 Acct:[id number] Age/Sex: 61 / M Adm Date: 2 Loc: 3T Room: [address] [place] [address] Type: ADM INOo Attending Dr: Jaswinder Flores MD Copies to: ~ Date of Service: 07/27/2022 Subjective Subjective Narrative: Patient was seen and examined at bedside. Remained hemodynamically stable overnight. No chest pain reported overnight. Troponin levels down trended. Patient seems comfortable this morning denies any chest pain. Maintained n.p.o.past midnight for possible procedure today. Awaiting cardiology evaluati on. Exam Physical Exam Vital Signs: Temp Pulse [...] <Electronically signed by Jaswinder Flores MD> 07/27/[address] [place] [address] Work Phone: 1(954) 573-401509-28-2022 History and physical note Author Jaswinder Flores [facility] July 26, 2022 5:18pmNote Date/TimeSeptember 2021 5:10pm[place] [address] Hospitalist H&P Signed Patient: Zaid Mello MR#: [id number] : 1960 Acct:[id number] Age/Sex: 61 / M Adm Date: 2 Loc: Room: [address] [place] [address] Type: ADM IN Attending Dr: Jaswinder Flores MD Copies to: Consuelo Flores MD~ HPI DATE OF EXAMINATION: 07/26/22 CHIEF COMPLAINT: chest pain HISTORY OF PRESENT ILLNESS: Patient is a 61 year old male with past medical history of CABG x3, CAD s/p PCI in 04/27/21 stentingSVG to RCA, Hx of COPD presented to [facility] for chest pain. Patient reported [...] decided to go to the ER. At [facility], initial EKG showed Qwaves in leads III and T wave inversions in inferior leads according to reports from [facility]. Initial troponin was 40, and the second one was in 500s. They contacted our telephone information supervisor Dr. Jackson who accepted to be web consultant on the case. Patient was started on full dose Lovenox at [facility]. Patient wastransferred to our [facility] for further evaluation and management and possible [...] sublingual Q5M PRN chest pain 30 days #25tabs 04/29/21 [Rx Confirmed 05/11/22] ticagrelor 90 mg [...] patch was applied on his chest from [facility]. States compliance with DAPT ASA and Brilinta [...] <Electronically signed by Jaswinder Flores MD> 07/26/22 3762 [facility] Work Phone: 1(316) 497-783807-15-2022 Discharge summary Author Norm Jackson [facility] May 12, 2022 9:55amNote Date/TimeJuly 2021 9:[address] [address] Discharge Summary Signed Patient: Zaid Mello MR#: [id number] : 1960 Acct:[id number] Age/Sex: 61 / M Adm Date: 2 Loc: Room: Attending Dr: Norm Jackson DO Copies to: Consuelo Jackson, DO~ Providers Date of Discharge: 05/12/22 Discharging Provider: Norm Jackson Primary Care Provider: Consuelo Villasenor Discharge [...] L 131/69 98 05/11/22 07:06 05/11/22 07:06 07/14/22 07:06 Discharge Plan Discharge Plan Patient Disposition: Home Diet: Low-Cholesterol Additional Instructions: DISCHARGE INSTRUCTIONS FOR CARDIAC FLOOR SCRUBBER PHONE NUMBER OF YOUR PHYSICIAN: [phone] PROCEDURE: Heart Cath The following instructions have [...] You may change the dressing only if soiledor wet. You may remove the dressing the [...] cold, numb, blue or white, call the telephone information supervisor immediately. 4. ACTIVITY: You are advised [...] bottle, follow the instructions on the bottle. [facility] is not responsible for incorrect prescription information [...] Days Qty: 25 RF: 3 Follow Up: Norm Jackson DO [Active Staff - D.O.] - Consuelo Villasenor MD [Primary Care Provider] - Documented By: Norm Jackson DO 05/12/22 0949 Signed By: <Electronically signed by Norm Jackson DO> 05/12/22 0955 [facility] Work Phone: 1(481) 808-181407-15-2022 [facility] Evaluation note* Encounter Date Diagnosis Assessment Notes Treatment Notes Treatment Clinical Notes February, Chronic obstructive pulmonary disease, unspecified COPD type (ICD- 10 - J44.9) February,Lung mass (ICD-10 - R91.8)Patient will discuss the options with his and will let me know, I recommended consideration for thoracoscopic resection of the right lower lobe mass which might require referral to tertiary center of his choice. 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 Also refer for CT-guided biopsy of right lower lobe mass Oct,2Chronic obstructive pulmonary disease, unspecified COPD type (ICD-10 - J44.9) Oct,2Dyspnea on exertion (ICD-10 - R06.00) Oct,2Coronary artery disease involving poarch heart without angina pectoris, unspecified vessel or lesion type (ICD-10 - I25.10) [employer] [facility] Other 03-01-2015 History general Narrative - Reported* Type Description Date Medical History CAD Medical HistoryhyperlipidemiaMedical HistoryCOPDSurgical HistoryCA Hospitalization Historyas above [employer] Other 03-01-2015 History general Narrative - Reported* Type Description Date Medical History CAD Medical HistoryhyperlipidemiaMedical HistoryCOPDMedical Historylung cancer Surgical HistoryCABG12/2014Surgical Historylung resection RLL2/2022Surgical HistoryTeeth extraction1/2022Hospitalization Historyas [facility] Other Discharge summary Author Jaswinder Flores [facility] July 28, 2022 5:31pmNote Date/TimeSeptember 2021 5:[place] [id number] Discharge Summary Signed Patient: Zaid Mello MR#: [id number] : 1960 Acct:[id number] Age/Sex: 61 / M Adm Date: 2 Loc: Room: [address] [place] [address]: Jaswinder Flores MD Copies to: [...] to RCA, Hx of COPD presented to [facility] for chest pain.? Patient reported that he started having chest pain while he was walking, he states that there was substernal chest painradiating to his left arm with numbness all the way down his left upper extremity, it has relieved with rest. Patient decided to go to ER for further evaluation.? At [facility], initial EKG showed Q waves in leads III and T wave inversions in inferior leads according to reports from [facility].? Initial troponin was 40, andthe second one was in 500s.? They contacted our telephone information supervisor Dr. Jackson who accepted to be web consultant on the case.? Patient was started on full dose Lovenoxat [facility].Patient was transferred to our [facility] for further evaluation and management and possible cardiac cath. During hospital stay, troponin levels down trended however there was a concern for subacute stent thrombosis due to recent antiplatelet therapy withdrawal for teeth extraction.? SHASHI risk score is 5-7 consistent with high risk for which telephone information supervisor proceeded with cardiac cath on 07/27 which showed widely patent grafts x3 and widely patent stent in SVG?RCA, newly occluded proximal RCA/RV marginal branch, consistent with infarct vessel. Patient was cleared from cardio logy standpoint for discharge. Patient tolerated procedure well with no immediate complications andwould like to go home. Patient was instructed regarding his HbA1c of 6.9. Discussed with patient atbedside, he is not interested in medications at this time and would like to try diet and exercise and other lifestyle modifications at this point. He said he will follow-up withhis primary doctor forfurther evaluation and management. Patient remained hemodynamically stable for discharge. Condition Condition at Discharge: Stable Time Spent with Patient Time spent providing/coordinating discharge services (# min): 40 Surgeries and Procedures Operation Date: 07/28/22 13:15 Actual Procedures p CL Coronary Angio w/grafts - W Catracho Jackson DO p CL Ivus Initial Vessel - Norm Jackson DO Diagnostic Studies Completed and Pending [...] % (Auto) 58.5, Lymph % (Auto) 24.6, Griggs % (Auto) 11.1, Eos % (Auto) 5.3, Baso % (Auto) 0.5, Neut # (Auto) 3.3, Lymph # (Auto) 1.4, Griggs #(Auto) 0.6, Eos# (Auto) 0.3, Baso # (Auto) 0.0, Nucleated RBC % (auto) 0.2 07/28/22 06:54: PHA Creatinine Clear 90.35, Sodium 136, Potassium 4.2, Chloride 102, Carbon [id number], Anion Gap 13.0, BUN 11, Creatinine 1.00, [...] Low-Cholesterol Additional Instructions: DISCHARGE INSTRUCTIONS FOR CARDIAC FLOOR SCRUBBER PHONE NUMBER OF YOUR PHYSICIAN: [phone] PROCEDURE: Heart Cath The following instructions have [...] You may change the dressing only if soiledor wet. You may remove the dressing the [...] cold, numb, blue or white, call the telephone information supervisor immediately. 4. ACTIVITY: You are advised [...] bottle, follow the instructions on the bottle. [facility] is not responsible for incorrect prescription information [...] PO DAILY Qty: 30 6RF Follow Up: Norm Jackson DO [Active Staff - D.O.] - Consuelo Villasenor MD [Primary Care Provider] - Documented By: Jaswinder Flores MD 07/28/22 17 26 Signed By: <Electronically signed by Jaswinder Flores MD> 07/28/22 1731 [facility] Work Phone: Evaluation noteNo assessment information available [facility] Work Phone: Evaluation noteNo InformationNort MobileOCT Other Evaluation note* Diagnosis Onset Date Resolution Status Angina pectoris acuteChest painacuteCOPD (chronic obstructive pulmonary disease)acuteHistory of coronary artery bypass graft x 3acuteHistory of ST elevation myocardial infarction (STEMI)acuteNon-ST elevation myocardial infarction (NSTEMI), initial care episodeacuteStable anginaacute [facility] Work Phone: Evaluation note* Diagnosis Onset Date Resolution Status Atypical mycobacterial disease acuteDiastolic dysfunctionacuteMild chronic obstructive pulmonary diseaseacute Rhinitisacute [facility] Work Phone: Evaluation note* Diagnosis Abnormal CT of liver- Primary Blood glucose abnormal Other abnormal glucose Complicated UTI (urinary tract infection) Encounter for screening for malignant neoplasm of colon Benign prostatic hyperplasia with incomplete bladder emptying- Primary Complicated UTI (urinary tract infection) History of coronary artery bypass surgery- Primary Postsurgical aortocoronary bypass status Arteriosclerosis of coronary artery (CMS/HCC) Hyperlipidemia, unspecified hyperlipidemia type (CMS/HCC) Dry skin dermatitis Contact dermatitis and other eczema due to other specified agent Low back pain potentially associated with radiculopathy Low back pain potentially associated with radiculopathy- Primary Multiple neurological symptoms Low back pain potentially associated with radiculopathy- Primary Multiple neurological symptoms Encounter for long-term (current) use of medications Encounter for long-term (current) use of other medications Heartburn- Primary Low back pain potentially associated with radiculopathy Polyneuropathy- Primary Unspecified hereditary and idiopathic peripheral neuropathy Degeneration of intervertebral disc of lumbar region with discogenic back pain and lower extremity pain Long-term use of high-risk medication documented in this encounter [facility]* Diagnosis Abnormal CT of liver- Primary Blood glucose abnormal Other abnormal glucose Complicated UTI (urinary tract infection) Encounter for screening for malignant neoplasm of colon Benign prostatic hyperplasia with incomplete bladder emptying- Primary Complicated UTI (urinary tract infection) History of coronary artery bypass surgery- Primary Postsurgical aortocoronary bypass status Arteriosclerosis of coronary artery (CMS/HCC) Hyperlipidemia, unspecified hyperlipidemia type (CMS/HCC) Dry skin dermatitis Contact dermatitis and other eczema due to other specified agent Low back pain potentially associated with radiculopathy Low back pain potentially associated with radiculopathy- Primary Multiple neurological symptoms Low back pain potentially associated with radiculopathy- Primary Multiple neurological symptoms Encounter for long-term (current) use of medications Encounter for long-term (current) use of other medications Heartburn- Primary Low back pain potentially associated with radiculopathy Type 2 diabetes mellitus without complication, without long-term current use of insulin (CMS/HCC)- Primary documented in this encounter [facility] note* Diagnosis Abnormal CT of liver- Primary Blood glucose abnormal Other abnormal glucose Complicated UTI (urinary tract infection) Encounter for screening for malignant neoplasm of colon Benign prostatic hyperplasia with incomplete bladder emptying- Primary Complicated UTI (urinary tract infection) History of coronary artery bypass surgery- Primary Postsurgical aortocoronary bypass status Arteriosclerosis of coronary artery (CMS/HCC) Hyperlipidemia, unspecified hyperlipidemia type (CMS/HCC) Dry skin dermatitis Contact dermatitis and other eczema due to other specified agent Low back pain potentially associated with radiculopathy Low back pain potentially associated with radiculopathy- Primary Multiple neurological symptoms Low back pain potentially associated with radiculopathy- Primary Multiple neurological symptoms Encounter for long-term (current) use of medications Encounter for long-term (current) use of other medications Heartburn- Primary Low back pain potentially associated with radiculopathy Degeneration of intervertebral disc of lumbar region with discogenic back pain and lower extremity pain- Primary documented in this encounter [facility]* Diagnosis Abnormal CT of liver- Primary Blood glucose abnormal Other abnormal glucose Complicated UTI (urinary tract infection) Encounter for screening for malignant neoplasm of colon Benign prostatic hyperplasia with incomplete bladder emptying- Primary Complicated UTI (urinary tract infection) History of coronary artery bypass surgery- Primary Postsurgical aortocoronary bypass status Arteriosclerosis of coronary artery (CMS/HCC) Hyperlipidemia, unspecified hyperlipidemia type (CMS/HCC) Dry skin dermatitis Contact dermatitis and other eczema due to other specified agent Low back pain potentially associated with radiculopathy Low back pain potentially associated with radiculopathy- Primary Multiple neurological symptoms Low back pain potentially associated with radiculopathy- Primary Multiple neurological symptoms Encounter for long-term (current) use of medications Encounter for long-term (current) use of other medications Heartburn- Primary Low back pain potentially associated with radiculopathy Degeneration of intervertebral disc of lumbar region, unspecified whether pain present- Primary Abnormal magnetic resonance imaging of lumbar spine Polyneuropathy Unspecified hereditary and idiopathic peripheral neuropathy documented in [facility] encounter [facility]* Diagnosis Abnormal CT of liver- Primary Blood glucose abnormal Other abnormal glucose Complicated UTI (urinary tract infection) Encounter for screening for malignant neoplasm of colon Benign prostatic hyperplasia with incomplete bladder emptying- Primary Complicated UTI (urinary tract infection) History of coronary artery bypass surgery- Primary Postsurgical aortocoronary bypass status Arteriosclerosis of coronary artery (CMS/HCC) Hyperlipidemia, unspecified hyperlipidemia type (CMS/HCC) Dry skin dermatitis Contact dermatitis and other eczema due to other specified agent Low back pain potentially associated with radiculopathy Low back pain potentially associated with radiculopathy- Primary Multiple neurological symptoms Low back pain potentially associated with radiculopathy- Primary Multiple neurological symptoms Encounter for long-term (current) use of medications Encounter for long-term (current) use of other medications Heartburn- Primary Low back pain potentially associated with radiculopathy Chronic left shoulder pain- Primary Pain in joint, shoulder region Numbness and tingling in left hand Disturbance of skin sensation documented [facility] encounter [facility]* Diagnosis Abnormal CT of liver- Primary Blood glucose abnormal Other abnormal glucose Complicated UTI (urinary tract infection) Encounter for screening for malignant neoplasm of colon Benign prostatic hyperplasia with incomplete bladder emptying- Primary Complicated UTI (urinary tract infection) History of coronary artery bypass surgery- Primary Postsurgical aortocoronary bypass status Arteriosclerosis of coronary artery (CMS/HCC) Hyperlipidemia, unspecified hyperlipidemia type (CMS/HCC) Dry skin dermatitis Contact dermatitis and other eczema due to other specified agent Low back pain potentially associated with radiculopathy Low back pain potentially associated with radiculopathy- Primary Multiple neurological symptoms Low back pain potentially associated with radiculopathy- Primary Multiple neurological symptoms Encounter for long-term (current) use of medications Encounter for long-term (current) use of other medications Heartburn- Primary Low back pain potentially associated with radiculopathy Gastroesophageal reflux disease, unspecified whether esophagitis present- Primary Periumbilical abdominal pain Abdominal pain, periumbilic Chronic left shoulder pain Pain in joint, shoulder region Numbness and tingling in left hand Disturbance of skin sensation Diabetes mellitus type 2, noninsulin dependent (CMS/HCC) Paresthesia and pain of extremity Low back pain potentially associated with radiculopathy documented in this encounter [facility]Evaluation note* Diagnosis Degenerative disc disease, lumbar- Primary Abnormal magnetic resonance imaging of lumbar spine Lumbar spondylolysis Lumbosacral spondylosis without myelopathy documented in this encounter [facility]Evaluation note* Diagnosis Abnormal CT of liver- Primary Blood glucose abnormal Other abnormal glucose Complicated UTI (urinary tract infection) Encounter for screening for malignant neoplasm of colon Benign prostatic hyperplasia with incomplete bladder emptying- Primary Complicated UTI (urinary tract infection) History of coronary artery bypass surgery- Primary Postsurgical aortocoronary bypass status Arteriosclerosis of coronary artery (CMS/HCC) Hyperlipidemia, unspecified hyperlipidemia type (CMS/HCC) Dry skin dermatitis Contact dermatitis and other eczema due to other specified agent Low back pain potentially associated with radiculopathy Low back pain potentially associated with radiculopathy- Primary Multiple neurological symptoms Low back pain potentially associated with radiculopathy- Primary Multiple neurological symptoms Encounter for long-term (current) use of medications Encounter for long-term (current) use of other medications Heartburn- Primary Low back pain potentially associated with radiculopathy Gastroesophageal reflux disease, unspecified whether esophagitis present- Primary Periumbilical abdominal pain Abdominal pain, periumbilic Chronic left shoulder pain Pain in joint, shoulder region Numbness and tingling in left hand Disturbance of skin sensation Diabetes mellitus type 2, noninsulin dependent (CMS/HCC) Paresthesia and pain of extremity Low back pain potentially associated with radiculopathy Lumbar spondylolysis- Primary Lumbosacral spondylosis without myelopathy Degeneration of intervertebral disc of lumbar region, unspecified whether pain present Polyneuropathy Unspecified hereditary and idiopathic peripheral neuropathy documented in this encounter [facility]Evaluation note* Diagnosis Abnormal CT of liver- Primary Blood glucose abnormal Other abnormal glucose Complicated UTI (urinary tract infection) Encounter for screening for malignant neoplasm of colon Benign prostatic hyperplasia with incomplete bladder emptying- Primary Complicated UTI (urinary tract infection) History of coronary artery bypass surgery- Primary Postsurgical aortocoronary bypass status Arteriosclerosis of coronary artery (CMS/HCC) Hyperlipidemia, unspecified hyperlipidemia type (CMS/HCC) Dry skin dermatitis Contact dermatitis and other eczema due to other specified agent Low back pain potentially associated with radiculopathy Low back pain potentially associated with radiculopathy- Primary Multiple neurological symptoms Low back pain potentially associated with radiculopathy- Primary Multiple neurological symptoms Encounter for long-term (current) use of medications Encounter for long-term (current) use of other medications Heartburn- Primary Low back pain potentially associated with radiculopathy Gastroesophageal reflux disease, unspecified whether esophagitis present- Primary Periumbilical abdominal pain Abdominal pain, periumbilic Chronic left shoulder pain Pain in joint, shoulder region Numbness and tingling in left hand Disturbance of skin sensation Diabetes mellitus type 2, noninsulin dependent (CMS/HCC) Paresthesia and pain of extremity Low back pain potentially associated with radiculopathy Acute pain of left shoulder- Primary Numbness and tingling in left hand Disturbance of skin sensation Impingement of left shoulder Arm weakness Other musculoskeletal symptoms referable to limbs Arm pain, left Pain in soft tissues of limb Numbness Disturbance of skin sensation documented in this encounter [facility]Evaluation note* Diagnosis Abnormal CT of liver- Primary Blood glucose abnormal Other abnormal glucose Complicated UTI (urinary tract infection) Encounter for screening for malignant neoplasm of colon Benign prostatic hyperplasia with incomplete bladder emptying- Primary Complicated UTI (urinary tract infection) History of coronary artery bypass surgery- Primary Postsurgical aortocoronary bypass status Arteriosclerosis of coronary artery (CMS/HCC) Hyperlipidemia, unspecified hyperlipidemia type (CMS/HCC) Dry skin dermatitis Contact dermatitis and other eczema due to other specified agent Low back pain potentially associated with radiculopathy Low back pain potentially associated with radiculopathy- Primary Multiple neurological symptoms Low back pain potentially associated with radiculopathy- Primary Multiple neurological symptoms Encounter for long-term (current) use of medications Encounter for long-term (current) use of other medications Heartburn- Primary Low back pain potentially associated with radiculopathy Gastroesophageal reflux disease, unspecified whether esophagitis present- Primary Periumbilical abdominal pain Abdominal pain, periumbilic Chronic left shoulder pain Pain in joint, shoulder region Numbness and tingling in left hand Disturbance of skin sensation Diabetes mellitus type 2, noninsulin dependent (CMS/HCC) Paresthesia and pain of extremity Low back pain potentially associated with radiculopathy Carpal tunnel syndrome on left- Primary Carpal tunnel syndrome Arm weakness Other musculoskeletal symptoms referable to limbs Numbness Disturbance of skin sensation Arm pain, left Pain in soft tissues of limb documented in this encounter [facility]* Diagnosis Lumbar spondylolysis- Primary Lumbosacral spondylosis without myelopathy documented in this encounter [facility]* Diagnosis Low back pain potentially associated with radiculopathy- Primary Multiple neurological symptoms documented in this encounter [facility]* Diagnosis Polyneuropathy- Primary Unspecified hereditary and idiopathic peripheral neuropathy Degenerative disc disease, lumbar documented in this encounter [facility]* Diagnosis Heartburn- Primary Low back pain potentially associated with radiculopathy documented in this encounter [facility]* Diagnosis Abnormal CT of liver- Primary Blood glucose abnormal Other abnormal glucose Complicated UTI (urinary tract infection) Encounter for screening for malignant neoplasm of colon Benign prostatic hyperplasia with incomplete bladder emptying- Primary Complicated UTI (urinary tract infection) History of coronary artery bypass surgery- Primary Postsurgical aortocoronary bypass status Arteriosclerosis of coronary artery (CMS/HCC) Hyperlipidemia, unspecified hyperlipidemia type (CMS/HCC) Dry skin dermatitis Contact dermatitis and other eczema due to other specified agent Low back pain potentially associated with radiculopathy Low back pain potentially associated with radiculopathy- Primary Multiple neurological symptoms Low back pain potentially associated with radiculopathy- Primary Multiple neurological symptoms Encounter for long-term (current) use of medications Encounter for long-term (current) use of other medications Heartburn- Primary Low back pain potentially associated with radiculopathy Gastroesophageal reflux disease, unspecified whether esophagitis present- Primary Periumbilical abdominal pain Abdominal pain, periumbilic Chronic left shoulder pain Pain in joint, shoulder region Numbness and tingling in left hand Disturbance of skin sensation Diabetes mellitus type 2, noninsulin dependent (CMS/HCC) Paresthesia and pain of extremity Low back pain potentially associated with radiculopathy Impingement of left shoulder- Primary documented in this encounter [facility] note* Diagnosis Abnormal CT of liver- Primary Blood glucose abnormal Other abnormal glucose Complicated UTI (urinary tract infection) Encounter for screening for malignant neoplasm of colon Benign prostatic hyperplasia with incomplete bladder emptying- Primary Complicated UTI (urinary tract infection) History of coronary artery bypass surgery- Primary Postsurgical aortocoronary bypass status Arteriosclerosis of coronary artery (CMS/HCC) Hyperlipidemia, unspecified hyperlipidemia type (CMS/HCC) Dry skin dermatitis Contact dermatitis and other eczema due to other specified agent Low back pain potentially associated with radiculopathy Low back pain potentially associated with radiculopathy- Primary Multiple neurological symptoms Low back pain potentially associated with radiculopathy- Primary Multiple neurological symptoms Encounter for long-term (current) use of medications Encounter for long-term (current) use of other medications Heartburn- Primary Low back pain potentially associated with radiculopathy Gastroesophageal reflux disease, unspecified whether esophagitis present- Primary Periumbilical abdominal pain Abdominal pain, periumbilic Chronic left shoulder pain Pain in joint, shoulder region Numbness and tingling in left hand Disturbance of skin sensation Diabetes mellitus type 2, noninsulin dependent (CMS/HCC) Paresthesia and pain of extremity Low back pain potentially associated with radiculopathy Impingement of left shoulder- Primary documented in this encounter [facility]Evaluation note* Diagnosis Abnormal CT of liver- Primary Blood glucose abnormal Other abnormal glucose Complicated UTI (urinary tract infection) Encounter for screening for malignant neoplasm of colon Benign prostatic hyperplasia with incomplete bladder emptying- Primary Complicated UTI (urinary tract infection) History of coronary artery bypass surgery- Primary Postsurgical aortocoronary bypass status Arteriosclerosis of coronary artery (CMS/HCC) Hyperlipidemia, unspecified hyperlipidemia type (CMS/HCC) Dry skin dermatitis Contact dermatitis and other eczema due to other specified agent Low back pain potentially associated with radiculopathy Low back pain potentially associated with radiculopathy- Primary Multiple neurological symptoms Low back pain potentially associated with radiculopathy- Primary Multiple neurological symptoms Encounter for long-term (current) use of medications Encounter for long-term (current) use of other medications Heartburn- Primary Low back pain potentially associated with radiculopathy Gastroesophageal reflux disease, unspecified whether esophagitis present- Primary Periumbilical abdominal pain Abdominal pain, periumbilic Chronic left shoulder pain Pain in joint, shoulder region Numbness and tingling in left hand Disturbance of skin sensation Diabetes mellitus type 2, noninsulin dependent (CMS/HCC) Paresthesia and pain of extremity Low back pain potentially associated with radiculopathy Acute pain of left shoulder- Primary Numbness and tingling in left hand Disturbance of skin sensation documented in this encounter [facility]Evaluation note* Diagnosis Coronary artery disease involving coronary bypass graft of poarch heart, unspecified whether anginapresent ASHD (arteriosclerotic heart disease) Coronary atherosclerosis of unspecified type of vessel, poarch or graft ST elevation myocardial infarction (STEMI), unspecified artery (Multi) S/P CABG (coronary artery bypass graft) Postsurgical aortocoronary bypass status Status post insertion of drug eluting coronary artery stent Former smoker Personal history of tobacco use, presenting hazards to health BMI 36.0-36.9,adult documented in this encounter [facility] Work Phone: Evaluation note* Diagnosis Abnormal CT of liver- Primary Blood glucose abnormal Other abnormal glucose Complicated UTI (urinary tract infection) Encounter for screening for malignant neoplasm of colon Benign prostatic hyperplasia with incomplete bladder emptying- Primary Complicated UTI (urinary tract infection) History of coronary artery bypass surgery- Primary Postsurgical aortocoronary bypass status Arteriosclerosis of coronary artery (CMS/HCC) Hyperlipidemia, unspecified hyperlipidemia type (CMS/HCC) Dry skin dermatitis Contact dermatitis and other eczema due to other specified agent Low back pain potentially associated with radiculopathy Low back pain potentially associated with radiculopathy- Primary Multiple neurological symptoms Low back pain potentially associated with radiculopathy- Primary Multiple neurological symptoms Encounter for long-term (current) use of medications Encounter for long-term (current) use of other medications Heartburn- Primary Low back pain potentially associated with radiculopathy Gastroesophageal reflux disease, unspecified whether esophagitis present- Primary Periumbilical abdominal pain Abdominal pain, periumbilic Chronic left shoulder pain Pain in joint, shoulder region Numbness and tingling in left hand Disturbance of skin sensation Diabetes mellitus type 2, noninsulin dependent (CMS/HCC) Paresthesia and pain of extremity Low back pain potentially associated with radiculopathy 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 (CMS/HCC)- Primary Acute right-sided thoracic back pain documented in this encounter [facility]* Diagnosis Bladder stones- Primary Other calculus in bladder Benign prostatic hyperplasia with lower urinary tract symptoms Preop examination- Primary Unspecified pre-operative examination Hypertension, unspecified type Coronary artery disease, unspecified vessel or lesion type, unspecified whether angina present, unspecified whether poarch or transplanted heart Chronic obstructive pulmonary disease, unspecified COPD type ([facility]-HCC) Preop examination Unspecified pre-operative examination Hypertension, unspecified type Coronary artery disease, unspecified vessel or lesion type, unspecified whether angina present, unspecified whether poarch or transplanted heart Chronic obstructive pulmonary disease, unspecified COPD type (CMS-HCC) Preop examination Unspecified pre-operative examination Hypertension, unspecified type Coronary artery disease, unspecified vessel or lesion type, unspecified whether angina present, unspecified whether poarch or transplanted heart Chronic obstructive pulmonary disease, unspecified COPD type ([facility]-HCC) Bladder stones Other calculus in bladder Benign prostatic hyperplasia with lower urinary tract symptoms, symptom details unspecified [facility] Diagnosis Cloudy urine- Primary Painful urination Dysuria documented in this encounter [facility] SystemEvaluation note* Diagnosis Cloudy urine- Primary Urinary retention Unspecified retention of urine Benign prostatic hyperplasia with lower urinary tract symptoms, symptom details unspecified Recurrent UTI Urinary tract infection, site not specified [facility] Diagnosis Bladder stones- Primary Other calculus in bladder Benign prostatic hyperplasia with lower urinary tract symptoms, symptom details unspecified [facility] Diagnosis Urinary retention- Primary Unspecified retention of urine Gross hematuria [facility] Diagnosis Nephrolithiasis- Primary Calculus of kidney [facility] Diagnosis Benign prostatic hyperplasia with lower urinary tract symptoms, symptom details unspecified- Primary [facility] Diagnosis Bladder outlet obstruction- Primary 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 (CMS-HCC)- Primary Bladder outlet obstruction [facility] Diagnosis Bladder outlet obstruction- Primary 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 (CMS-HCC)- Primary Bladder outlet obstruction [facility] Diagnosis Nephrolithiasis- Primary Calculus of kidney Benign prostatic hyperplasia with lower urinary tract symptoms, symptom details unspecified Bladder stones- Primary Other calculus in bladder Benign prostatic hyperplasia with lower urinary tract symptoms, symptom details unspecified Benign prostatic hyperplasia with lower urinary tract symptoms, symptom details unspecified- Primary 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 (CMS-HCC)- Primary [facility]* Diagnosis Nephrolithiasis- Primary Calculus of kidney Benign prostatic hyperplasia with lower urinary tract symptoms, symptom details unspecified Bladder stones- Primary Other calculus in bladder Benign prostatic hyperplasia with lower urinary tract symptoms, symptom details unspecified Benign prostatic hyperplasia with lower urinary tract symptoms, symptom details unspecified- Primary Benign prostatic hyperplasia with lower urinary tract symptoms, symptom details unspecified- Primary Kidney stones Calculus of kidney [facility]* Diagnosis Abnormal CT of liver- Primary Blood glucose abnormal Other abnormal glucose Complicated UTI (urinary tract infection) Encounter for screening for malignant neoplasm of colon Benign prostatic hyperplasia with incomplete bladder emptying- Primary Complicated UTI (urinary tract infection) History of coronary artery bypass surgery- Primary Postsurgical aortocoronary bypass status Arteriosclerosis of coronary artery (CMS/HCC) Hyperlipidemia, unspecified hyperlipidemia type (CMS/HCC) Dry skin dermatitis Contact dermatitis and other eczema due to other specified agent Low back pain potentially associated with radiculopathy Low back pain potentially associated with radiculopathy- Primary Multiple neurological symptoms Low back pain potentially associated with radiculopathy- Primary Multiple neurological symptoms Encounter for long-term (current) use of medications Encounter for long-term (current) use of other medications Heartburn- Primary Low back pain potentially associated with radiculopathy Gastroesophageal reflux disease, unspecified whether esophagitis present- Primary Periumbilical abdominal pain Abdominal pain, periumbilic Chronic left shoulder pain Pain in joint, shoulder region Numbness and tingling in left hand Disturbance of skin sensation Diabetes mellitus type 2, noninsulin dependent (CMS/HCC) Paresthesia and pain of extremity Low back pain potentially associated with radiculopathy 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 (CMS/HCC)- Primary Acute right-sided thoracic back pain Acute right-sided thoracic back pain documented in this encounter [facility]* Diagnosis Nephrolithiasis- Primary Calculus of kidney Benign prostatic hyperplasia with lower urinary tract symptoms, symptom details unspecified Bladder stones- Primary Other calculus in bladder Benign prostatic hyperplasia with lower urinary tract symptoms, symptom details unspecified Benign prostatic hyperplasia with lower urinary tract symptoms, symptom details unspecified- Primary 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 (CMS-HCC) Lung mass Swelling, mass, or lump in chest 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 (CMS-HCC)- Primary Lung mass Swelling, mass, or lump in chest [facility] Diagnosis Nephrolithiasis- Primary Calculus of kidney Benign prostatic hyperplasia with lower urinary tract symptoms, symptom details unspecified Bladder stones- Primary Other calculus in bladder Benign prostatic hyperplasia with lower urinary tract symptoms, symptom details unspecified Benign prostatic hyperplasia with lower urinary tract symptoms, symptom details unspecified- Primary 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 (CMS-HCC)- Primary [facility] Diagnosis Nephrolithiasis- Primary Calculus of kidney Benign prostatic hyperplasia with lower urinary tract symptoms, symptom details unspecified Bladder stones- Primary Other calculus in bladder Benign prostatic hyperplasia with lower urinary tract symptoms, symptom details unspecified Benign prostatic hyperplasia with lower urinary tract symptoms, symptom details unspecified- Primary 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 (CMS-HCC)- Primary Lung mass Swelling, mass, or lump in chest documented [facility]* Diagnosis Nephrolithiasis- Primary Calculus of kidney Benign prostatic hyperplasia with lower urinary tract symptoms, symptom details unspecified Bladder stones- Primary Other calculus in bladder Benign prostatic hyperplasia with lower urinary tract symptoms, symptom details unspecified Benign prostatic hyperplasia with lower urinary tract symptoms, symptom details unspecified- Primary Recurrent UTI- Primary Urinary tract infection, site not specified [facility] Diagnosis Nephrolithiasis- Primary Calculus of kidney Benign prostatic hyperplasia with lower urinary tract symptoms, symptom details unspecified Bladder stones- Primary Other calculus in bladder Benign prostatic hyperplasia with lower urinary tract symptoms, symptom details unspecified Benign prostatic hyperplasia with lower urinary tract symptoms, symptom details unspecified- Primary Recurrent UTI- Primary Urinary tract infection, site not specified Kidney stones Calculus of kidney Bladder stones Other calculus in bladder Benign prostatic hyperplasia with lower urinary tract symptoms, symptom details unspecified [facility] Additional Instructions DISCHARGE INSTRUCTIONS FOR CARDIAC FLOOR SCRUBBER PHONE NUMBER OF YOUR PHYSICIAN: [phone] PROCEDURE: Heart Cath The following instructions have [...] cold, numb, blue or white, call the telephone information supervisor immediately. 4. ACTIVITY: You are advised [...] bottle, follow the instructions on the bottle. [facility] is not responsible for incorrect prescription information provided by the patient during their visit. Do not stop your medications without consulting your health care provider. Please take the list with you to your next doctor's appointment. Follow up with PCP regarding diabetes your HbA1C was 6.9. [facility] Work Phone: InstructionsNot on filedocumented in this encounter [facility] filed[facility] in [facility] filedocumented in this encounter [facility] filedocumented in this encounter [facility] filedocumented in this encounter [facility] on filedocumented in this encounter [facility] on filedocumented in this encounter [facility] on filedocumented in this encounter [facility] on filedocumented in this encounter [facility] on filedocumented in this encounter [facility] on filedocumented in this encounter [facility] on filedocumented in this encounter [facility] on filedocumented in this encounter [facility]Not on filedocumented in this encounter [facility] (narrative)* Reason RLL mass Diagnosis 1 Lung mass (R91.8) Referral Organization [facility] Referring Provider First Name Mickie Referring Provider Last Name Pippa Referring Provider Specialty Pulmonary D iseases Referred Organization [facility] Referred Address [address] [place], [place],[address] Referred Provider Specialty Intervention al Radiology Referral Priority Routine General Notes Ivonne Santos 01:14:58 PM > follow CT guided biopsy in DI [place] Other Reason for referral (narrative)* Consultation (Routine) - Pending ReviewSpecialtyDiagnoses / ProceduresReferred By Contact Referred To ContactNeurology Diagnoses Lumbar spondylolysis Procedures [place] OFFICE/OUTPATIENT NEW HIGH MDM 60 MINUTES Ksenia Arzola NP [address] [place] [address] [place] Modi, DO [address] [place] [address] Referral IDStatusReasonStart DateExpiration DateVisits RequestedVisits [id number] Review Specialty Services Required / Scheduling Instructions Please include MRI report and PT reports [facility] Narrative* Consultation (Routine) - Closed SpecialtyDiagnoses / ProceduresReferred By ContactReferred To ContactNeurology Diagnoses Lumbar spondylolysis Procedures [place] OFFICE/OUTPATIENT NEW HIGH [facility] 60 MINUTES Ksenia Arzola NP [address] [address] [facility] [place] [address] Indiana Modi [address] [place] [address] Referral IDStatusReasonStart DateExpiration DateVisits RequestedVisits [id number] Specialty Services Required / [facility] for visit Narrative* Other Medical (Routine) - Closed SpecialtyDiagnoses / ProceduresReferred By ContactReferred To ContactNeurology Diagnoses Arm weakness Numbness Arm pain, left Procedures EM[facility] AND NERVE CONDUCTION STUDY Stephanie العراقي PA [address] [place] [address] Phone: tel: fax: Natty Mckeon, DO [address] [place] [address] Phone: tel: fax: Referral IDStatusReasonStart DateExpiration DateVisits RequestedVisits [id number] [facility] HealthcareReason for visit Narrative* Rehabilitation - Outpatient (Routine) - AuthorizedSpecialtyDiagnoses / ProceduresReferred By ContactReferred To ContactPhysical Therapy Diagnoses Impingement of left shoulder Procedures [place] OFFICE/OUTPATIENT NEW HIGH MDM Stephanie العراقي, PA [address] [place] [address] Phone: tel: fax: Junie Priest, PT [address] [place] [address] Phone: tel: fax: Referral IDStatusReasonStart DateExpiration DateVisits RequestedVisits [id number] Consult and Treat [facility] Family History Unknown Family Member Name Dates Details H/O heart artery stent: Brot her(V45.82, Z95.5) Status:ActiveFHx: myocardial infarction: Brother(V17.3, Z82.49) Status:ActiveFamily history of malignant neoplasm: Sister(V16.9, Z80.9) Status:ActiveFamily history of cerebrovascular accident (CVA): Sister(V17.1, Z82.3) Status:Active Relationship Condition Age at Onset Recorded Date/T elsie Not Specified Hypertension Unknown sisterMalignant neoplasmUnknownbrotherCoronary artery diseaseUnknownsister Cerebrovascular accident (CVA)UnknownUnknown Family Member Name Dates Details H/O heart artery stent: Brot her(V45.82, Z95.5) Status:ActiveFHx: myocardial infarction: Brother(V17.3, Z82.49) Status:ActiveFamily history of malignant neoplasm: Sister(V16.9, Z80.9) Status:ActiveFamily history of cerebrovascular accident (CVA): Sister(V17.1, Z82.3) Status:Active Unknown Family Member Name Dates Details Family history of cerebrovas cular accident (CVA): Sister(V17.1, Z82.3) Status:ActiveFamily history of malignant neoplasm: Sister(V16.9, Z80.9) Status:ActiveFHx: myocardial infarction: Brother(V17.3, Z82.49) Status:ActiveH/O heart artery stent: Brother(V45.82, Z95.5) Status:Active Unknown Family Member Name Dates Details H/O heart artery stent: Brot her(V45.82, Z95.5) Status:ActiveFHx: myocardial infarction: Brother(V17.3, Z82.49) Status:ActiveFamily history of malignant neoplasm: Sister(V16.9, Z80.9) Status:ActiveFamily history of cerebrovascular accident (CVA): Sister(V17.1, Z82.3) Status:Active Unknown Family Member Name Dates Details H/O heart artery stent: Brot her(V45.82, Z95.5) Status:ActiveFHx: myocardial infarction: Brother(V17.3, Z82.49) Status:ActiveFamily history of malignant neoplasm: Sister(V16.9, Z80.9) Status:ActiveFamily history of cerebrovascular accident (CVA): Sister(V17.1, Z82.3) Status:Active Relationship Condition Age at Onset Recorded Date/T elsie Not Specified Hypertension Unknown sisterMalignant neoplasmUnknownCoronary artery diseaseUnknownbrotherCoronary artery diseaseUnknownsisterCerebrovascular accident (CVA)UnknownMalignant neoplasmUnknown Unknown Family Member Name Dates Details H/O heart artery stent: Brot her(V45.82, Z95.5) Status:ActiveFHx: myocardial infarction: Brother(V17.3, Z82.49) Status:ActiveFamily history of malignant neoplasm: Sister(V16.9, Z80.9) Status:ActiveFamily history of cerebrovascular accident (CVA): Sister(V17.1, Z82.3) Status:Active Unknown Family Member Name Dates Details H/O heart artery stent: Brot her(V45.82, Z95.5) Status:ActiveFHx: myocardial infarction: Brother(V17.3, Z82.49) Status:ActiveFamily history of malignant neoplasm: Sister(V16.9, Z80.9) Status:ActiveFamily history of cerebrovascular accident (CVA): Sister(V17.1, Z82.3) Status:Active Unknown Family Member Name Dates Details H/O heart artery stent: Brot her(V45.82, Z95.5) Status:ActiveFHx: myocardial infarction: Brother(V17.3, Z82.49) Status:ActiveFamily history of malignant neoplasm: Sister(V16.9, Z80.9) Status:ActiveFamily history of cerebrovascular accident (CVA): Sister(V17.1, Z82.3) Status:Active Unknown Family Member Name Dates Details Family history of cerebrovas cular accident (CVA): Sister(V17.1, Z82.3) Status:ActiveFamily history of malignant neoplasm: Sister(V16.9, Z80.9) Status:ActiveFHx: myocardial infarction: Brother(V17.3, Z82.49) Status:ActiveH/O heart artery stent: Brother(V45.82, Z95.5) Status:Active Unknown Family Member Name Dates Details H/O heart artery stent: Brot her(V45.82, Z95.5) Status:ActiveFHx: myocardial infarction: Brother(V17.3, Z82.49) Status:ActiveFamily history of malignant neoplasm: Sister(V16.9, Z80.9) Status:ActiveFamily history of cerebrovascular accident (CVA): Sister(V17.1, Z82.3) Status:Active Unknown Family Member Name Dates Details H/O heart artery stent: Brot her(V45.82, Z95.5) Status:ActiveFHx: myocardial infarction: Brother(V17.3, Z82.49) Status:ActiveFamily history of malignant neoplasm: Sister(V16.9, Z80.9) Status:ActiveFamily history of cerebrovascular accident (CVA): Sister(V17.1, Z82.3) Status:Active Unknown Family Member Name Dates Details H/O heart artery stent: Brot her(V45.82, Z95.5) Status:ActiveFHx: myocardial infarction: Brother(V17.3, Z82.49) Status:ActiveFamily history of malignant neoplasm: Sister(V16.9, Z80.9) Status:ActiveFamily history of cerebrovascular accident (CVA): Sister(V17.1, Z82.3) Status:Active Unknown Family Member Name Dates Details Family history of cerebrovas cular accident (CVA): Sister(V17.1, Z82.3) Status:ActiveFamily history of malignant neoplasm: Sister(V16.9, Z80.9) Status:ActiveFHx: myocardial infarction: Brother(V17.3, Z82.49) Status:ActiveH/O heart artery stent: Brother(V45.82, Z95.5) Status:Active Unknown Family Member Name Dates Details H/O heart artery stent: Brot her(V45.82, Z95.5) Status:ActiveFHx: myocardial infarction: Brother(V17.3, Z82.49) Status:ActiveFamily history of malignant neoplasm: Sister(V16.9, Z80.9) Status:ActiveFamily history of cerebrovascular accident (CVA): Sister(V17.1, Z82.3) Status:Active Unknown Family Member Name Dates Details H/O heart artery stent: Brot her(V45.82, Z95.5) Status:ActiveFHx: myocardial infarction: Brother(V17.3, Z82.49) Status:ActiveFamily history of malignant neoplasm: Sister(V16.9, Z80.9) Status:ActiveFamily history of cerebrovascular accident (CVA): Sister(V17.1, Z82.3) Status:Active Relationship Condition Age at Onset Recorded Date/T elsie mother Hypertension Unknown brotherCoronary artery diseaseUnknownsisterMalignant neoplasmUnknown Cerebrovascular accident (CVA)UnknownCoronary artery diseaseUnknownfatherHeart diseaseUnknownDiabetes mellitusUnknown Chief Complaint and Reason for Visit Chief Complaint r91.1 R91.8 recheck pneumonia recheck pneumo j44.9 R91.8 Chief Complaint R91.8 Angina, CAD Chief Complaint R91.8 Angina, CAD Angina, CAD Chief Complaint Angina, CAD Angina, CAD Chest PainReason for VisitAngina pectoris Chest pain COPD (chronic obstructive pulmonary disease) History of coronary artery bypass graft x [address] elevation myocardial infarction (STEMI) Non-ST elevation myocardial infarction (NSTEMI), initial care episode Stable angina Chief Complaint m54.41 Chief Complaint TATA: 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, Lung Cancer Reason for Visit Atypical mycobacteri al disease Diastolic dysfunction Mild chronic obstructive pulmonary disease Rhinitis Chief Complaint TATA: 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, Lung Cancer M51.36 R93.7 M43.06Reason for VisitAtypical mycobacterial disease Diastolic dysfunction Mild chronic obstructive pulmonary disease Rhinitis Chief Complaint Admit Date TATA: 1 yr f/u Atypical Mycobacterium, Margarita g Cancer August 07, 2024 8:22am M51.36 R93.7 M43.06 August 23, 2024 6 :44am FCE September 10, 2024 1:26pm Reason for Visit Admit Date Atypical mycobacterial disease July 292023 8:22am Diastolic dysfunction August 07, 2024 8:22am Mild chronic obstructive pulmonary disea se August 07, 2024 8:22am Rhinitis August 07, 2024 8 :22am Chief Complaint Admit Date TATA: 1 yr f/u Atypical Mycobacterium, Margarita g Cancer August 07, 2024 8:22am M51.36 R93.7 M43.06 August 23, 2024 6 :44am FCE September 10, 2024 1:26pm LOWER BACK PAIN -NUMBNESS September 16, 2024 10:38am Chief Complaint Admit Date FCE September 10, 2024 1:26pm LOWER BACK PAIN -NUMBNESS September 16, 2024 10:38am GERD, periumbilical abdominal pain Decem 2023 8:33am GERD, periumbilical abdominal pain Decem 2023 9:41am CEA: 3 mo f/u Atypical Mycobacterial Dis ease, COPD December 09, 2024 2:21pm Reason for Visit Admit Date Chronic pain September 16, 2024 10:38am Spondylosis of lumbar region without myelopathy or radiculopathy September 16, 2024 10:38am Atypical mycobacterial disease December 09, 2024 2:21pm Diastolic dysfunction December 09 2:21pm Mild chronic obstructive pulmonary disea se December 09, 2024 2:21pm Rhinitis December 09, 2024 2:21pm Advance Directives Advance Directive Response Recorded Date/ Time Advance Directives No April 27 8:51am Advance Directive Response Recorded Date/ Time Advance Directives No April 27 7:51am Code StatusDate ActivatedDate InactivatedCommentsFull Code11/30/2022 7:27 AM 12/06/2022 6:02 PMCode StatusDate ActivatedDate InactivatedCommentsFull Code 11/30/2022 7:27 AM12/06/2022 6:02 PMDate ActivatedDate InactivatedComments11/30/2022 7:27 AM12/06/2022 6:02 PMDate ActivatedDate InactivatedComments11/30/2022 7:27 AM 12/06/2022 6:02 PM Chief Complaint [...] has had previous CABG with subsequent inferior MS in March 2021 with primary revascularization of [...] Patient had remote CABG, recent non-ST elevation MS due to closure of negative right coronary however this was inconsequential because his poarch right coronary is already bypassed therefore he [...] in 1-year-old Summary Purpose Reason for Referral SpecialtyDiagnoses / ProceduresReferred By ContactReferred To ContactRadiology Diagnoses 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 (CMS-HCC) Procedures CT abdomen and pelvis with contrast Cornelio Birmingham MD [address] [place] [address] [address] [place] [address] Referral IDStatusReasonStart DateExpiration DateVisits RequestedVisits [id number] Review/[id number] / ProceduresReferred By ContactReferred To ContactRadiology Diagnoses 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 (CMS-HCC) Procedures CT chest with contrast Cornelio Birmingham MD [address] [place] [address] [address] [place] [address] Referral IDStatusReasonStart DateExpiration DateVisits RequestedVisits [id number] Review/[id number] / ProceduresReferred By ContactReferred To Contact Diagnoses Nephrolithiasis Procedures Void Trial Veena Casiano MD [address] [place] [address] Referral IDStatusReasonStart DateExpiration DateVisits RequestedVisits [id number] Review/[id number] / Procedures Referred By ContactReferred To Contact Diagnoses Bladder stones Procedures Measure post void residual Peggy Green PA [address] [place] [address] Referral IDStatusReasonStart DateExpiration DateVisits RequestedVisits [id number] Review/[id number] / ProceduresReferred By ContactReferred To Contact Diagnoses Cloudy urine Procedures Measure post void residual Veena Casiano MD [address] [place] [address] Referral IDStatusReasonStart DateExpiration DateVisits RequestedVisits [id number] Review/[id number] / ProceduresReferred By ContactReferred To Contact Diagnoses Preop examination Hypertension, unspecified type Coronary artery disease, unspecified vessel or lesion type, unspecified whether angina present, unspecified whether poarch or transplanted heart Chronic obstructive pulmonary disease, unspecified COPD type ([facility]) Procedures ECG 12 lead Isaías Gallego MD [address] [place] [phone] Referral IDStatusReasonStart DateExpiration DateVisits RequestedVisits [id number] / ProceduresReferred By ContactReferred To Contact Diagnoses Degenerative disc disease, lumbar Abnormal magnetic resonance imaging of lumbar spine Lumbar spondylolysis Procedures MR lumbar spine w contrast MR lumbar spine w contrast Natty Mckeon DO [address] [place] [address] [facility] Scheduling [address] [place] [address] Referral IDStatusReasonStart DateExpiration DateVisits RequestedVisits [id number] Review/ Additional Source Comments Care Teams (unrecognized sec tion and content) Team Status: Inactive Member Role Status Dates Consuelo Villasenor MD Primary Care Provider Active Grupo Daniel Jr DOAttending ProviderActive Team Status: Inactive Member Role Status Dates Consuelo Villasenor MD Primary Care Provider Active Souleymane Dixon ProviderActive Team Status: Inactive Member Role Status Dates Consuelo Villasenor MD Primary Care Provider Active Souleymane Contreras ProviderActive Team Status: Inactive Member Role Status Dates Consuelo Villasenor MD Primary Care Provider Active Souleymane Dixon ProviderActiveJoseabdoul Fredy , DOReferring ProviderActive Team Status: Active Member Role Status Dates Consuelo Villasenor MD Primary Care Provider Active Team Status: Inactive Member Role Status Dates Consuelo Villasenor MD Primary Care Provider Active W Negin Alcantara ProviderActive Team Status: Inactive Member Role Status Dates Consuelo Villasenor MD Primary Care Provider Active Jaswinder Flores MDAdmit Provider, Attending ProviderActiveAziza Maldonado RNOther ProviderActiveW Catracho Jackson DOOther ProviderActiveFrances Gayle MDOther ProviderActiveWijasmin Becker MDOther ProviderActiveMolaina Anderson MDOther ProviderActiveOttoniel Valdovinos MDOther Provider ActiveDonnik Bui , APRNOther ProviderActiveSahra Diez MDOther ProviderActiveMohamaliyah Aguilera MDOther ProviderActivePercy Wei MD Other ProviderActive Team Status: Active Member Role Status Dates Shaikh Lexi MD Primary Care Provider Active Team Status: Inactive Member Role Status Dates Shaikh Lexi MD Primary Care Provider, Attending Pr ovider Active Team Status: Inactive Member Role Status Dates Shaikh Lexi MD Primary Care Provider Active Start: August 07, 2024 End: August 07Souleymane Khan ProviderActiveStart: August 07, 2024 End: August 07, 2024 Team Status: Inactive Member Role Status Dates Shaikh Lexi MD Primary Care Provider Active Start: August 23, 2024 End: August 23Negin Carvalho ProviderActiveStart: August 23, 2024 End: August 23, 2024Team MemberRelationshipSpecialtyStart DateEnd Date Shaikh Elliott MD [address] [place] [address] PCP - GeneralInternal Medicine12/31/23 Shaikh Elliott MD [address] [place] [address] PCP - [employer]03/29/24Team MemberRelationshipSpecialtyStart DateEnd Date Shaikh Elliott MD [address] [place] [address] PCP - GeneralInternal Medicine12/31/23 Shaikh Elliott MD [address] [place] [address] PCP - [employer]03/29/24Team MemberRelationshipSpecialtyStart DateEnd Date Shaikh Elliott MD [address] [place] [address] PCP - GeneralInternal Medicine12/31/23 Shaikh Elliott MD [address] [place] [address] PCP - [employer]03/29/24Team MemberRelationshipSpecialtyStart DateEnd Date Shaikh Elliott MD [address] [place] [address] PCP - GeneralInternal Medicine12/31/23 Shaikh Elliott MD [address] [place] [address] PCP - [employer]03/29/24 Team Status: Active Member Role Status Dates Ksenia Arzola , IMPORT/EXPORT AGENT-C Primary Care Provider Ac tive Team Status: Inactive Member Role Status Dates Natty Mckeon DO Attending Provider Active Start: September 10, 2024 End: September 10debbie Arzola , IMPORT/EXPORT AGENT-CPrimary Care ProviderActive Start: September 10, 2024 End: September 10, 2024 Team Status: Inactive Member Role Status Dates Chivo Devi MD Attending Provider Active Star t: September 16, 2024 End: September 16richristel Arzola , IMPORT/EXPORT AGENT-CPrimary Care ProviderActive Start: September 16, 2024 End: September 16, 2024Team MemberRelationshipSpecialtyStart DateEnd Date Shaikh Elliott MD [address] [place] [address] [facility] - [facility]12/31/23 Shaikh Elliott MD [address] [place] [address] PCP - [employer]03/29/24Team MemberRelationshipSpecialtyStart DateEnd Date Shaikh Elliott MD [address] [place] [address] PCP - [facility]12/31/23 Shaikh Elliott MD [address] [place] [address] PCP - [employer]03/29/24Team MemberRelationshipSpecialtyStart DateEnd Date Shaikh Elliott MD [address] [place] [address] PCP - GeneralInternal Medicine12/31/23 Shaikh Elliott MD [address] [place] [address] PCP - [employer]03/29/24Team MemberRelationshipSpecialtyStart DateEnd Date Shaikh Elliott MD [address] [place] [address] PCP - GeneralInternal Medicine12/31/23 Shaikh Elliott MD [address] [place] [address] PCP - [employer]03/29/24Team MemberRelationshipSpecialtyStart DateEnd Date Shaikh Elliott MD [address] [place] [address] PCP - GeneralInternal Medicine12/31/23 Shaikh Elliott MD [address] [place] [address] PCP - [employer]03/29/24Team MemberRelationshipSpecialtyStart DateEnd Date Shaikh Elliott MD [address] [place] [address] PCP - GeneralInternal Medicine12/31/23 Shaikh Elliott MD [address] [place] [address] PCP - [employer]03/29/24Team MemberRelationshipSpecialtyStart DateEnd Date Shaikh Elliott MD [address] [place] [address] PCP - GeneralInternal Medicine12/31/23 Shaikh Elliott MD [address] [place] [address] PCP - [employer]03/29/24Team MemberRelationshipSpecialtyStart DateEnd Date Shaikh Elliott MD [address] [place] [address] PCP - GeneralInternal Medicine12/31/23 Shaikh Elliott MD [address] [place] [address] PCP - [employer]03/29/24Team MemberRelationshipSpecialtyStart DateEnd Date Shaikh Elliott MD [address] [place] [address] PCP - GeneralInternal Medicine12/31/23 Shaikh Elliott MD [address] [place] [address] PCP - [employer]03/29/24Team MemberRelationshipSpecialtyStart DateEnd Date Shaikh Elliott MD [address] [place] [address] PCP - [facility]12/31/23 Shaikh Elliott MD [address] [place] [address] PCP - [employer]03/29/24Team MemberRelationshipSpecialtyStart DateEnd Date Shaikh Elliott MD [address] [place] [address] PCP - [facility]12/31/23 Shaikh Elliott MD [address] [place] [address] PCP - [employer]03/29/24Team MemberRelationshipSpecialtyStart DateEnd Date Shaikh Elliott MD [address] [place] [address] PCP - [facility]12/31/23 Shaikh Elliott MD [address] [place] [address] PCP - [employer]03/29/24Team MemberRelationshipSpecialtyStart DateEnd Date Shaikh Elliott MD [address] [place] [address] PCP - GeneralInternal Medicine12/31/23 Shaikh Elliott MD [address] [place] [address] PCP - [employer]03/29/24Team MemberRelationshipSpecialtyStart DateEnd Date Shaikh Elliott MD [address] [place] [address] PCP - [facility]12/31/23 Shaikh Elliott MD [address] [place] [address] PCP - [employer]03/29/24Te MemberRelationshipSpecialtyStart DateEnd Date Shaikh Elliott MD [address] [place] [address] PCP - [facility]12/31/23 Shaikh Elliott MD [address] [place] [address] PCP - [employer]03/29/24Te MemberRelationshipSpecialtyStart DateEnd Date Shaikh Elliott MD [address] [place] [address] PCP - [facility]12/31/23 Shaikh Elliott MD [address] [place] [address] PCP - [employer]03/29/24Team MemberRelationshipSpecialtyStart DateEnd Date Shaikh Elliott MD [address] [place] [address] PCP - GeneralInternal Medicine12/31/23 Shaikh Elliott MD [address] [place] [address] PCP - [employer]03/29/24Team MemberRelationshipSpecialtyStart DateEnd Date Shaikh Elliott MD [address] [place] [address] PCP - [facility]12/31/23 Shaikh Elliott MD [address] [place] [address] PCP - [employer]03/29/24Team MemberRelationshipSpecialtyStart DateEnd Date Shaikh Elliott MD [address] [place] [address] PCP - [facility]12/31/23 Shaikh Elliott MD [address] [place] [address] PCP - [employer]03/29/24Team MemberRelationshipSpecialtyStart DateEnd Date Shaikh Elliott MD [address] [place] [address] PCP - GeneralInternal Medicine12/31/23 Shaikh Elliott MD [address] [place] [address] PCP - [employer]03/29/24Team MemberRelationshipSpecialtyStart DateEnd Date Shaikh Elliott MD [address] [place] [address] PCP - GeneralInternal Medicine12/31/23 Shaikh Elliott MD [address] [place] [address] PCP - [employer]03/29/24Team MemberRelationshipSpecialtyStart DateEnd Date Ksenia Arzola, [facility] [address] [place] [address] [facility] - [facility]11/27/24Team MemberRelationshipSpecialtyStart DateEnd Date Shaikh Elliott MD [address] [place] [address] PCP - GeneralInternal Medicine12/31/23 Shaikh Elliott MD [address] [place] [address] PCP - [employer]03/29/24Team MemberRelationshipSpecialtyStart DateEnd Date Shaikh Elliott MD [address] [place] [address] PCP - GeneralInternal [facility]12/31/23 Shaikh Elliott MD [address] [place] [address] PCP - [facility]03/29/24Team MemberRelationshipSpecialtyStart DateEnd Date Shaikh Elliott MD [address] [place] [address] PCP - [facility]ern[facility]10/31/22Team MemberRelationshipSpecialtyStart Date End Date Shaikh Elliott MD [address] [place] [address] PCP - [facility]10/31/22Team MemberRelationshipSpecialtyStart Date End Date Shaikh Elliott MD [address] [place] [address] PCP - GeneralInternal [facility]10/31/22Te MemberRelationshipSpecialtyStart Date End Date Shaikh Elliott MD [address] [place] [address] PCP - [facility]10/31/22 Team Status: Inactive Member Role Status Dates Ksenia Arzola IMPORT/EXPORT AGENT-C Primary Care Provider Ac tive Start: October 28, 2024 End: October 28atherine Francisco Javier Altamirano , DOAttending ProviderActiveStart: October 28, 2024 End: October 28, 2024 Team Status: Active Member Role Status Dates Ksenia Arzola NP-C Primary Care Provider Ac tive Start: October 28, 2024 Lacey Altamirano , DOAttending Provider, Other ProviderActiveStart: October 28, 2024 Team Status: Inactive Member Role Status Dates Natty Leiva MD Attending Provider Active Start: December 09, 2024 End: December 09richristel Arzola NP-CPrimary Care ProviderActive Start: December 09, 2024 End: December 09, 2024Team MemberRelationshipSpecialtyStart DateEnd Date Shaikh Elliott MD [address] [place] [place] [address] PCP - GeneralInternal Medicine10/31/22Te MemberRelationshipSpecialtyStart Date End Date Shaikh Elliott MD [address] [place] [address] PCP - GeneralInternal Medicine10/31/22 MemberRelationshipSpecialtyStart Date End Date Shaikh Elliott MD [address] [place] [place] [address] PCP - GeneralInternal Medicine10/31/22 MemberRelationshipSpecialtyStart Date End Date Shaikh Elliott MD [address] [place] [place] [address] PCP - GeneralInternal Medicine10/31/22Te MemberRelationshipSpecialtyStart Date End Date Shaikh Elliott MD [address] [place] [address] PCP - GeneralInternal Medicine10/31/22Team MemberRelationshipSpecialtyStart Date End Date Shaikh Elliott MD [address] [place] [address] PCP - GeneralInternal Medicine10/31/22Team MemberRelationshipSpecialtyStart Date End Date Shaikh Elliott MD [address] [place] [address] PCP - GeneralInternal Medicine10/31/22Team MemberRelationshipSpecialtyStart Date End Date Shaikh Elliott MD [address] [place] [address] PCP - GeneralInternal Medicine10/31/22Team MemberRelationshipSpecialtyStart Date End Date Shaikh Elliott MD [address] [place] [address] PCP - GeneralInternal Medicine10/31/22Team MemberRelationshipSpecialtyStart Date End Date Shaikh Elliott MD [address] [place] [address] PCP - GeneralInternal Medicine10/31/22Team MemberRelationshipSpecialtyStart Date End Date Shaikh Elliott MD [address] [place] [address] PCP - GeneralInternal Medicine10/31/22Team MemberRelationshipSpecialtyStart Date End Date Fawwad, [place], MD PCP - GeneralInternal Medicine10/31/22Team MemberRelationshipSpecialtyStart Date End Date Ksenia Arzola [facility] [address] [place] [address] PCP - GeneralNurse Bnzctoyaqpal80/14/24Team MemberRelationshipSpecialtyStart DateEnd Date Ksenia Arzola [facility] [address] [place] [address] PCP - GeneralNurse Exrtabdapicx83/14/24Team MemberRelationshipSpecialtyStart DateEnd Date Ksenia Arzola [facility] [address] [place] [address] PCP - GeneralNurse Mstzgzhqiszs83/14/24Team MemberRelationshipSpecialtyStart DateEnd Date Shaikh Elliott MD [address] [place] [address] PCP - GeneralInternal Medicine12/31/23 Shaikh Elilott MD [address] [place] [address] PCP - [employer]03/29/24Team MemberRelationshipSpecialtyStart DateEnd Date Shaikh Elliott MD [address] [place] [address] PCP - GeneralInternal Medicine12/31/23 Shaikh Elliott MD [address] [place] [address] PCP - [employer]03/29/24Team MemberRelationshipSpecialtyStart DateEnd Date ArzolaKsenia green [facility] [address] [place] [address] PCP - GeneralNurse Hdrbyxtbdylb55/14/24Team MemberRelationshipSpecialtyStart DateEnd Date Ksenia Arzola [facility] [address] [place] [address] PCP - GeneralNurse Usstsioaascs53/14/24Team MemberRelationshipSpecialtyStart DateEnd Date ArzolaKsenia valentine [facility] [address] [place] [address] PCP - GeneralNurse Erzpvzsagcfp62/14/24Team MemberRelationshipSpecialtyStart DateEnd Date ArzolaKsenia valentine [facility] [address] [place] [address] PCP - GeneralNurse Izxvcrsynzng66/14/24Team MemberRelationshipSpecialtyStart DateEnd Date Justo Chaney MD [address] [place] [address] [facility] - [facility]07/07/25Team MemberRelationshipSpecialtyStart DateEnd Date Shaikh Elliott MD PCP - GeneralInternal Medicine12/31/23 Shaikh Elliott MD [address] [place] [address] PCP - [employer] Goals (unrecognized section and content) Goals may be documented in a n alternate sectionNo InformationNo InformationNo InformationNo InformationNo InformationGoals may be documented in an alternate sectionNo InformationGoals may be documented in an alternate sectionNo InformationGoals may be documented in an alternate sectionGoals may be documented in an alternate sectionGoals may be documented in an alternate sectionGoals may be documented in an alternate section (unrecognized sect ion and content) No Status Records FoundNo Status Records FoundNo Status Records FoundNo Status Records FoundNo Status Records FoundNo Status Records FoundNo Status Records FoundNo Status Records FoundNo Status Records FoundNo Status Records FoundNo Status Records FoundNo Status Records Found INFORMATION SOURCE (unrecogn ized section and content) DATE CREATED AUTHOR 04/06/2022 [facility] DATE CREATED AUTHOR AUTHOR'S ORGANIZ ATION 07/31/2022 [facility] DATE CREATED AUTHOR AUTHOR'S ORGANIZ ATION 10/04/2022 [facility] DATE CREATED AUTHOR AUTHOR'S ORGANIZ ATION 10/05/2022 [email or web address] DATE CREATED AUTHOR AUTHOR'S ORGANIZ ATION 09/06/2023 [facility] DATE CREATED AUTHOR AUTHOR'S ORGANIZ ATION 12/02/[address] [facility] DATE CREATED AUTHOR AUTHOR'S ORGANIZ ATION 10/12/2024 [facility] DATE CREATED AUTHOR AUTHOR'S ORGANIZ ATION 11/07/2024 [facility] DATE CREATED AUTHOR AUTHOR'S ORGANIZ ATION 11/29/2024 [facility] DATE CREATED AUTHOR AUTHOR'S ORGANIZ ATION 01/14/2025 [facility] DATE CREATED AUTHOR AUTHOR'S ORGANIZ ATION 07/09/2025 [facility] DATE CREATED AUTHOR AUTHOR'S ORGANIZ ATION 07/10/2025 [facility] REASON FOR VISIT (unrecogniz ed section and content) ReasonCommentsBack PainReasonCommentsFollow-upReasonCommentsPainSpecialty Diagnoses / ProceduresReferred By ContactReferred To ContactOrthopaedic Surgery Diagnoses Chronic left shoulder pain Numbness and tingling in left hand Ksenia Arzola, IMPORT/EXPORT AGENT [address] [facility] [place] [address] Phone: tel: fax: Stephanie العراقي, [place] [address] [place] [address] Phone: tel: fax: Referral IDStatusReasonStart DateExpiration DateVisits RequestedVisits [id number] Specialty Services Required /[id number] PainReasonCommentsFollow-upLow back pain potentially associated with radiculopathyReasonCommentsFollow-upReasonComments Annual ExamSpecialtyDiagnoses / ProceduresReferred By ContactReferred To Contact Cardiology Diagnoses Coronary artery disease involving coronary bypass graft of poarch heart, unspecified whether anginapresent S/P CABG (coronary artery bypass graft) Procedures Follow Up In Cardiology Walt Jackson, [address], [address] [address] Phone: tel: fax: Walt Jackson, [address] [place] [address] 2, [facility] [address] [place] [address] Phone: tel: fax: Referral IDStatusReasonWrens DateExpiration DateVisits RequestedVisits [id number] PainX2 days, short of breath from the pain mostly on left side, sharp stabbing 10/10 pain ReasonCommentsFollow-upCloudy urine and slight discomfort when urinatingReason Onset DateCommentsMed [id number] in UrineReasonComments Bladder ProblemReasonCommentsMed RefillReasonOnset DateCommentsMed Refill 12/25/2024ReasonCommentsUrinary Tract Infection FOR RECORDS PERTAINING TO PATIENTS WHO ARE [...] BE BASED ON THE PRIMARY CLINICAL RECORDS. [facility] [employer] provides no warranty or guarantee of the accuracy or completeness of information in this document.
[2025-10-05 10:02] LABS: Estimated GFR (African America >60 (>=60 mL/min/1.73m^2); Estimated GFR (Non-African Ame >60 (>=60 mL/min/1.73m^2)
== END 2025-10-05 09:17 | disposition home or self-care (01) ==
PROVIDERS: Pathology Anatomic Pathology & Clinical Pathology; PCP Psychiatry & Neurology Neurology; Visit Provider Internal Medicine Hematology & Oncology
DX: C34.31 Malignant neoplasm of lower lobe, right bronchus or lung (principal); R91.8 Other nonspecific abnormal finding of lung field
CPT/HCPCS: 36415; 71260; 82565; Q9967